=== PATIENT | female | born 1955 | race American Indian/Alaskan Native ===

== ENCOUNTER 2020-12-02 03:03 | Inpatient (IN) | payer MEDICARE, OTHER ==
[2020-12-02] MEDS ORDERED: SODIUM CHLORIDE 0.9% 500 ML 500 ML IV ONE (03:36)
--- NOTE | 2020-12-02 03:37 | Emergency Department Report ---
ED General Adult HPI - General Chief complaint: Dyspnea/Respdistress Stated complaint: ESSENCE PUI?: Yes Time Seen by Provider: 12/02/20 03:20 Source: patient, EMS ( EMS documentation not available at time of chart dictation ), RN notes reviewed, old records reviewed Mode of arrival: Stretcher Limitations: Physical Limitation - History of Present Illness Initial comments: The patient was evaluated in the emergency department for symptoms described in the history of present illness. He/she was evaluated in the context of the aks[place] bal COVID-19 pandemic, which necessitated consideration that the patient might be at risk for infection with the virus that causes COVID-19. Institutional protocols and algorithms that pertain to the evaluation of patients at risk for COVID-19 are in a state of rapid change based on information released by regulatory bodies including the CDC and federal and state organizations. These policies and algorithms were followed during the patient's care in the emergency department. Please note that these policies, procedures and recommendations changed on a rapid basis. During the entire history and physical I had a complete personal protective equipment. The patient is a 65-year-old female. The patient is brought to the hospital by emergency medical services. The patient is a [facility] patient. She apparently has a history of hypertension, and lower GI bleed in 2016. She is referred to t his emergency room by a local [facility] stand-alone facility. At this facility, she presented with Covid symptoms, today is her sixth day of symptomatology. Symptoms include shortness of breath, loss of taste and smell, malaise, fatigue and weakness. Denies nausea vomiting, diarrhea, hematemesis and bright red blood per rectum. She had a CT scan of her chest which showed extensive irregular groundglass opacity of the bilateral lungs with more focal areas of irregular consolidation. Currently reported imaging features of COVID-19 pneumonia are present. She also had a CT scan of her abdomen pelvis which showed diverticulosis, without inflammatory findings. She also had a number of nonemergent incidental findings. She was given 6 mg of Decadron via Covid hypoxic protocol. Lovenox was held, as it was concerned that the patient may have a history of occult GI bleed. In addition, her stools found to be heme positive, the patient does report that she had a rectal exam performed. The patient endorses mild headache, chest tightness, shortness of breath, cramping, diarrhea, body aches, loss of taste and smell. She has not received a COVID-19 vaccination. She states that she had a colonoscopy 2 years ago which she believes was unremarkable. The patient also received albuterol, pantoprazole, potassium chloride. Laboratory studies were also obtained Which demonstrated a hemoglobin of 8.3, a hematocrit of 26.7, a glucose of 347, white blood cell count of 5.4. , -: Gradual, days(s) Location: head, back, left, right, upper extremity, lower extremity Severity scale (0 -10): 0 Quality: aching Consistency: constant Improves with: rest Worsens with: movement - Related Data Allergies Allergy/AdvReac Type Severity Reaction Status Date / Time shellfish derived Allergy Unknown Verified 12/02/20 03:37 ED Review of Systems ROS: Stated complaint: ESSENCE Other details as noted in HPI Constitutional: fever, malaise, weakness Eyes: denies: eye discharge ENT: congestion Respiratory: shortness of breath Cardiovascular: denies: chest pain Gastrointestinal: diarrhea. denies: nausea Genitourinary: denies: dysuria Musculoskeletal: back pain, arthralgia, myalgia Neurological: headache, weakness Hematological/Lymphatic: denies: easy bleeding ED Past Medical Hx - Past Medical History Previous Medical History?: Yes Hx Hypertension: Yes Hx Diabetes: Yes - Surgical History Past Surgical History?: Yes Additional Surgical History: R wrist ED Physical Exam - General Limitations: Physical Limitation General appearance: alert, anxious, in distress, obese - Head Head exam: Present: atraumatic, normocephalic - Eye Eye exam: Present: normal appearance, EOMI. Absent: nystagmus - ENT ENT exam: Present: normal exam, normal orophraynx, mucous membranes moist, normal external ear exam - Neck Neck exam: Present: normal inspection, full ROM. Absent: tenderness, meningismus - Respiratory Respiratory exam: Present: respiratory distress, accessory muscle use, other (Pulmonary auscultation not performed secondary to lack of disposable stethoscope). Absent: stridor - Cardiovascular Cardiovascular Exam: Present: other (Cardiac auscultation not performed secondary to lack of disposable stethoscope) - GI/Abdominal GI/Abdominal exam: Present: soft. Absent: distended, tenderness, guarding, rebound, rigid, pulsatile mass - Extremities Exam Extremities exam: Present: normal inspection, full ROM, other (2+ pulses noted in the bilateral upper and lower extremities. There is no palpable cord. negative Homans sign. Muscular compartments are soft. The pelvis is stable.). Absent: pedal edema, calf tenderness - Back Exam Back exam: Present: normal inspection, full ROM. Absent: tenderness, CVA tenderness (R), CVA tenderness (L), paraspinal tenderness, vertebral tenderness - Neurological Exam Neurological exam: Present: alert, oriented X3, other (No facial droop. Tongue midline. Extraocular movements intact bilaterally. Facial sensation intact to light touch in V1, V2, V3 distribution bilaterally. 5 and a 5 strength in 4 extremities. Sensation intact to light touch in 4 extremities.) - Psychiatric Psychiatric exam: Present: anxious - Skin Skin exam: Present: warm, dry, intact, normal color. Absent: rash ED Course Vital Signs 12/02/20 12/02/20 03:36 03:55 Temperature 98.3 F Pulse Rate 73 Respiratory 25 H Rate Blood Pressure 122/65 [Left] O2 Sat by Pulse 92 98 Oximetry - Reevaluation(s) Reevaluation #1: 12/02/20 04:10 Differential diagnosis, including but not limited to: COVID-19, acute hypoxic r espiratory failure, viral pneumonia versus bacterial pneumonia Assessment and plan: 65-year-old female who presents during the COVID-19 pandemic, with typical and prototypical COVID-19 symptomatology. She had a CT scan of her chest abdomen pelvis acquired prior to her arriving at this hospital. She meets criteria for admission hospitalization secondary to acute hypoxic respiratory failure. She denies GI bleed that she is aware of at this time, and she had a rectal exam performed today which was guaiac positive. She also reports having had a colonoscopy 2 years ago which was negative for s ignificant findings. On a nonrebreather, saturating 95 to 99%. She is awake, alert, oriented not encephalopathic. Contacted [facility] physician Dr. Penn, discussed the patient's history, physical, laboratory studies and imaging findings, overall clinical impression, he authorizes this patient to be admitted to this hospital. I have discussed this plan of care with the patient, and she is agreeable to admission. She was given steroids prior to arrival. Given COVID-19 symptomatology, objective imaging, overall prevalence of COVID- 19, continue on nonrebreather, administer supportive care, I think bacterial pneumonia is unlikely, but will cover just in case of superinfection, and admit patient to the medical service. 12/02/20 04:59 admitted to [facility] under Dr Lia Moy and ELMO Parsons ED Medical Decision Making - Lab Data Result diagrams: 12/02/20 03:58 12/02/20 03:58 Vital Signs 12/02/20 12/02/20 03:36 03:55 Temperature 98.3 F Pulse Rate 73 Respiratory 25 H Rate Blood Pressure 122/65 [Left] O2 Sat by Pulse 92 98 Oximetry - EKG Data -: EKG Interpreted by Ks EKG shows normal: sinus rhythm Rate: normal - EKG Data 12/02/20 04:13 EKG is interpreted at 03: 51 Sinus rhythm, 77 bpm. Normal axis, normal intervals, left ventricular hypertrophy, motion artifact, abnormal EKG, not a STEMI. - Radiology Data Radiology results: pending, report reviewed, image reviewed [facility] [address] [place] [address] XRay Report Signed Patient: KENNETH REIS MR#: [id number] : 1955 Acct:[id number] Age/Sex: 65 / F ADM Date: 12/02/20 Loc: ED Attending Dr: Ordering Physician: SHERLYN KINGSLEY MD Date of Service: 12/02/20 Procedure(s): XR chest 1V ap Accession Number(s): [id number] cc: SHERLYN KINGSLEY MD Fluoro Time In Minutes: CHEST 1 VIEW 12/02/2020 3:02 AM INDICATION / CLINICAL INFORMATION: Dyspnea. COMPARISON: None available. FINDINGS: SUPPORT DEVICES: None. HEART / MEDIASTINUM: No significant abnormality. LUNGS / PLEURA: Moderate multifocal bilateral parenchymal disease characteristic for pneumonia No pneumothorax. ADDITIONAL FINDINGS: No significant additional findings. IMPRESSION: 1. Probable bilateral Covid pneumonia Signer Name: Evangelist Herron MD Signed: 12/02/2020 4:25 AM Workstation Name: [id number] Transcribed By: TL Dictated By: Evangelist Herron MD Electronically Authenticated By: Evangelist Herron MD Signed Date/Time: 12/02/20 5820 Critical Care Time: Yes Critical care time in (mins) excluding proc time.: 35 Critical care attestation.: If time is entered above; I have spent that time in minutes in the direct care of this critically ill patient, excluding procedure time. ED Disposition Clinical Impression: COVID-19, Acute respiratory failure with hypoxia, Anosmia, Hyperglycemia Disposition: ADMITTED INPATIENT Is pt being admited?: Yes Does the pt Need Aspirin: No Condition: Serious
[2020-12-02] MEDS ORDERED: cefTRIAXone/NS 1 GM/50 ML 1 GM/50 ML BAG IV ONE (04:12)
[2020-12-02] MEDS ORDERED: AZITHROMYCIN/NS 500 MG/250 ML 500 MG/250 ML BAG IV ONE (04:12)
[2020-12-02 04:18] LABS: Basophils % (Auto) 0.2 % (0.0-1.8); Hematocrit 27.2 % (30.3-42.9); Hemoglobin 8.9 gm/dl (10.1-14.3); Lymphocytes # (Auto) 0.3 K/mm3 (1.2-5.4); Lymphocytes % (Auto) 6.7 % (13.4-35.0); Mean Corpuscular HGB Conc 33 % (30-34); Mean Corpuscular Volume 76 fl (79-97); Monocytes # (Auto) 0.3 K/mm3 (0.0-0.8); Monocytes % (Auto) 5.4 % (0.0-7.3); Platelet Count 231 K/mm3 (140-440); Red Blood Count 3.57 M/mm3 (3.65-5.03); Red Cell Distribution Width 17.6 % (13.2-15.2)
[2020-12-02 04:26] LABS: INR 0.88 (0.87-1.13)
[2020-12-02 04:27] LABS: Partial Thromboplastin Time 32.1 Sec. (24.2-36.6)
--- NOTE | 2020-12-02 04:36 | XRay Report ---
CHEST 1 VIEW 12/02/2020 3:02 AM INDICATION / CLINICAL INFORMATION: Dyspnea. COMPARISON: None available. FINDINGS: SUPPORT DEVICES: None. HEART / MEDIASTINUM: No significant abnormality. LUNGS / PLEURA: Moderate multifocal bilateral parenchymal disease characteristic for pneumonia No pne umothorax. ADDITIONAL FINDINGS: No significant additional findings. IMPRESSION: 1. Probable bilateral Covid pneumonia Signer Name: Evangelist Herron MD Signed: 12/02/2020 4:25 AM Workstation Name: [id number]
[2020-12-02 04:40] LABS: Alanine Aminotransferase 13 units/L (7-56); Albumin 3.1 g/dL (3.9-5); BUN/Creatinine Ratio 25; Blood Urea Nitrogen 20 mg/dL (7-17); Hemolysis Index 0
[2020-12-02] MEDS ORDERED: INSULIN REGULAR, HUMAN 100 UNITS/1 ML IV ONE (04:57)
[2020-12-02] MEDS ORDERED: NALOXONE 0.4 MG/1 ML INJ IV PRN (05:09)
[2020-12-02] MEDS ORDERED: ALBUTEROL 2.5 MG/3 ML NEBU IH PRN (05:09)
[2020-12-02] MEDS ORDERED: DEXTROSE 50% IN WATER (25GM) 50 ML SYRINGE IV PRN (05:09)
[2020-12-02] MEDS ORDERED: oxyCODONE /ACETAMINOPHEN 5-325MG TAB PO PRN (05:09)
[2020-12-02] MEDS ORDERED: ONDANSETRON 4 MG/2 ML INJ IV PRN (05:09)
--- NOTE | 2020-12-02 05:40 | History and Physical Report ---
History of Present Illness Date of examination: 12/02/20 Date of admission: 12/02/2020 Chief complaint: SOB, loss of taste and smell, malaise, fatigue and weakness History of present illness: 65-year-old -[place]ian female with history of hypertension, diabetes, and GI bleed who presents [facility] ED with complaints of shortness of breath, loss of taste and smell, malaise, fatigue and weakness. Of note this is a [facility] patient and [facility] has agreed to the admission. Patient presented to her local [facility] clinic yesterday evening with complaints of Covid symptoms x6 days. CT angio chest done at [facility] revealed extensive irregular bilateral groundglass opacities, and patient was referred to ED for further evaluation and treatment. Admits to known exposure, states that her friend whom she was in close contact with for several days recently tested positive for Covid. Endorses mild generalized headache, chest tightening, diarrhea, body aches, loss of smell and taste, and shortness of breath. Denies fever, chills, abdominal pain, rash, hemoptysis, hematochezia, melena, history of restrictive/obstructive lung disease, or medication noncompliant Past History Past Medical History: diabetes, hypertension, other (GIB (2016)) Past Surgical History: Other (right wrist sx) Social history: single, full code, other (has a roommate). denies: smoking, alcohol abuse, prescription drug abuse, IV drug use Family history: diabetes, hypertension Medications and Allergies Allergies Allergy/AdvReac Type Severity Reaction Status Date / Time shellfish derived Allergy Unknown Verified 12/02/20 03:37 Active Meds: Active Medications Acetaminophen (Acetaminophen 325 Mg Tab) 650 mg PO Q4H PRN PRN Reason: Pain MILD(1-3)/Fever >100.5/LARA Albuterol (Albuterol 2.5 Mg/3 Ml Nebu) 2.5 mg IH Q3HRT PRN PRN Reason: Shortness Of Breath Dexamethasone (Dexamethasone 4 Mg Tab) 6 mg PO DAILY AZAEL Dextrose (Dextrose 50% In Water (25gm) 50 Ml Syringe) 50 ml IV Q30MIN PRN; Protocol PRN Reason: Hypoglycemia Docusate Sodium (Docusate Sodium 100 Mg Cap) 100 mg PO BID AZAEL Enoxaparin Sodium (Enoxaparin 40 Mg/0.4 Ml Inj) 40 mg SUB-Q QDAY AZAEL Azithromycin (Zithromax/Ns) 500 mg in 250 mls @ 250 mls/hr IV Q24H AZAEL Ceftriaxone Sodium (Rocephin/Ns 1 Gm/50 Ml) 1 gm in 50 mls @ 100 mls/hr IV Q24H AZAEL; Protocol Insulin Glargine (Insulin Glargine 100 Units/Ml) 10 units SUB-Q QAMDIAB AZAEL Insulin Human Lispro (Insulin Lispro 100 Unit/Ml) 0 unit SUB-Q ACHS AZAEL; Protocol Naloxone HCl (Naloxone 0.4 Mg/1 Ml Inj) 0.1 mg IV Q2MIN PRN PRN Reason: Res Rate </= 8 or 02 SAT < 92% Ondansetron HCl (Ondansetron 4 Mg/2 Ml Inj) 4 mg IV Q6H PRN PRN Reason: Nausea And Vomiting Oxycodone/Acetaminophen (Oxycodone /Acetaminophen 5-325mg Tab) 1 tab PO Q6H PRN PRN Reason: Pain, Moderate (4-6) Pantoprazole Sodium (Pantoprazole 40 Mg Inj) 40 mg IV BID AZAEL Sodium Chloride (Sodium Chloride 0.9% 10 Ml Flush Syringe) 10 ml IV BID AZAEL Sodium Chloride (Sodium Chloride 0.9% 10 Ml Flush Syringe) 10 ml IV PRN PRN PRN Reason: LINE FLUSH Review of Systems All systems: negative (As noted in HPI) Exam - Physical Exam Narrative exam: Physical exam General appearance: Present: No acute distress, alert and oriented 3, older adult female - EENT Eyes: Present: PERRL, EOM intact ENT: hearing intact, normal dentition - Neck Neck: Present: supple, normal ROM - Respiratory Respiratory effort: Non-labored Respiratory: Diminished bases, on supplemental oxygen - Cardiovascular Heart rate: 73 (bpm) Rhythm: Sinus Heart Sounds: Present: S1 & S2. Absent: rub, click - Extremities Extremities: no ischemia, pulses intact, - Peripheral Assessment Peripheral Pulses: within normal limits - Abdominal General gastrointestinal: soft, non-tender, normal bowel sounds - Integumentary Integumentary: Present: warm, dry - Musculoskeletal Musculoskeletal: Able to move all extremities -Neurological Neurological: CN II-XII intact - Psychiatric Psychiatric: cooperative - Constitutional Vitals: Temp Pulse Resp BP Pulse Ox 98.3 F 73 25 H 122/65 98 12/02/20 03:36 12/02/20 03:36 12/02/20 03:36 12/02/20 03:36 12/02/20 03:55 HEART Score - HEART Score Troponin: Troponin T < 0.010 ng/mL (0.00-0.029) 12/02/20 03:58 Results - Labs CBC & Chem 7: 12/02/20 03:58 12/02/20 03:58 Labs: Laboratory Last Values WBC 5.0 K/mm3 (4.5-11.0) 12/02/20 03:58 RBC 3.57 M/mm3 (3.65-5.03) L 12/02/20 03:58 Hgb 8.9 gm/dl (10.1-14.3) L 12/02/20 03:58 Hct 27.2 % (30.3-42.9) L 12/02/20 03:58 MCV 76 fl (79-97) L 12/02/20 03:58 MCH 25 pg (28-32) L 12/02/20 03:58 MCHC 33 % (30-34) 12/02/20 03:58 RDW 17.6 % (13.2-15.2) H 12/02/20 03:58 Plt Count 231 K/mm3 (140-440) 12/02/20 03:58 Lymph % (Auto) 6.7 % (13.4-35.0) L 12/02/20 03:58 [place] % (Auto) 5.4 % (0.0-7.3) 12/02/20 03:58 Eos % (Auto) 0.0 % (0.0-4.3) 12/02/20 03:58 Baso % (Auto) 0.2 % (0.0-1.8) 12/02/20 03:58 Lymph # (Auto) 0.3 K/mm3 (1.2-5.4) L 12/02/20 03:58 [place] # (Auto) 0.3 K/mm3 (0.0-0.8) 12/02/20 03:58 Eos # (Auto) 0.0 K/mm3 (0.0-0.4) 12/02/20 03:58 Baso # (Auto) 0.0 K/mm3 (0.0-0.1) 12/02/20 03:58 Seg Neutrophils % 87.7 % (40.0-70.0) H 12/02/20 03:58 Seg Neutrophils # 4.4 K/mm3 (1.8-7.7) 12/02/20 03:58 PT 12.5 Sec. (12.2-14.9) 12/02/20 03:58 INR 0.88 (0.87-1.13) 12/02/20 03:58 APTT 32.1 Sec. (24.2-36.6) 12/02/20 03:58 D-Dimer 1559.33 ng/mlDDU (0-234) H 12/02/20 03:58 Sodium 130 mmol/L (137-145) L 12/02/20 03:58 Potassium 4.8 mmol/L (3.6-5.0) 12/02/20 03:58 Chloride 90.0 mmol/L (98-107) L 12/02/20 03:58 Carbon Dioxide 27 mmol/L (22-30) 12/02/20 03:58 Anion Gap 18 mmol/L 12/02/20 03:58 BUN 20 mg/dL (7-17) H 12/02/20 03:58 Creatinine 0.8 mg/dL (0.6-1.2) 12/02/20 03:58 Estimated GFR > 60 ml/min 12/02/20 03:58 BUN/Creatinine Ratio 25 % 12/02/20 03:58 Glucose 346 mg/dL (65-100) H 12/02/20 03:58 Calcium 9.0 mg/dL (8.4-10.2) 12/02/20 03:58 Magnesium 2.40 mg/dL (1.7-2.3) H 12/02/20 03:58 Ferritin 497.6 ng/mL (10.0-200.0) H 12/02/20 03:58 Total Bilirubin 0.30 mg/dL (0.1-1.2) 12/02/20 03:58 AST 43 units/L (5-40) H 12/02/20 03:58 ALT 13 units/L (7-56) 12/02/20 03:58 Alkaline Phosphatase 53 units/L (35-129) 12/02/20 03:58 Lactate Dehydrogenase 582 units/L (91-180) H 12/02/20 03:58 Troponin T < 0.010 ng/mL (0.00-0.029) 12/02/20 03:58 C-Reactive Protein 34.20 mg/dL (0.00-1.30) H 12/02/20 03:58 Total Protein 6.4 g/dL (6.3-8.2) 12/02/20 03:58 Albumin 3.1 g/dL (3.9-5) L 12/02/20 03:58 Albumin/Globulin Ratio 0.9 % 12/02/20 03:58 - Imaging and Cardiology Imaging and Cardiology: CXR: COMPARISON: None available. FINDINGS: SUPPORT DEVICES: None. HEART / MEDIASTINUM: No significant abnormality. LUNGS / PLEURA: Moderate multifocal bilateral parenchymal disease characteristic for pneumonia No pneumothorax. ADDITIONAL FINDINGS: No significant additional findings. IMPRESSION: 1. Probable bilateral Covid pneumonia CT Chest at [facility] ([facility]): showed extensive irregular groundglass opacity of the bilateral lungs with more focal areas of irregular consolidation Assessment and Plan Assessment and plan: Suspected COVID-19 viral infection -Admits to known exposure -Presented at outside facility ([facility]) with Covid symptom complaints, CT angio chest bilateral ground glass opacities, consistent with Covid -Covid inflammatory markers elevated -PCR pending -On zinc and vitamin D - started on Decadron -ID consulted Pneumonia -Likely due to COVID-19 -CXR shows bilateral probable Covid pneumonia -Cultures pending -Started on IV ABX -Monitor CBC Acute hypoxic respiratory failure -No Baseline home oxygen requirements -Currently on supplemental -Monitor saturations -Continue supplemental oxygen wean as tolerated -Albuterol Anemia -Guaiac positive stool, remote history of GI bleed (2016) -Trend H&H -Hemoglobin on admission 8.9 -Continue to monitor hemoglobin -Transfuse as needed for hgb<7 DM2 -Uncontrolled, with hyperglycemia -POC BG monitoring -Schedule Lantus and SSI coverage prn -HgbA1C pending GI and DVT PPX -On protonix and lovenox VTE prophylaxis?: Chemical, Mechanical
--- NOTE | 2020-12-02 07:49 | Event Note ---
Date: 12/02/20 Patient tested positive for Covid continue current management. ID input noted. Continue steroid therapy.
[2020-12-02] MEDS ORDERED: INSULIN GLARGINE 100 UNITS/ML SUB-Q SCH (08:00)
[2020-12-02] MEDS: INSULIN LISPRO 100 UNIT/ML SUB-Q SCH ×3 (08:05→17:06)
[2020-12-02] MEDS: INSULIN GLARGINE 100 UNITS/ML SUB-Q SCH ×2 (08:29→17:07)
[2020-12-02] MEDS: PANTOPRAZOLE 40 MG TAB PO SCH ×2 (08:29→17:05)
[2020-12-02] MEDS ORDERED: PANTOPRAZOLE 40 MG INJ IV SCH (10:00)
[2020-12-02] MEDS: DEXAMETHASONE 4 MG TAB PO SCH (11:41)
[2020-12-02] MEDS: CHOLECALCIFEROL (VIT D3) 5,000 UNIT TAB PO SCH (11:41)
[2020-12-02] MEDS: DOCUSATE SODIUM 100 MG CAP PO SCH (11:42)
[2020-12-02] MEDS: ZINC SULFATE 220 MG CAP PO SCH (11:43)
[2020-12-02] MEDS: ENOXAPARIN 40 MG/0.4 ML INJ SUB-Q SCH (11:43)
--- NOTE | 2020-12-02 13:23 | Electrocardiograph Report ---
[facility] Test Date: 2020-12-02 Test Time: 03:51:06 Pat Name: KENNETH REIS Department: Room: [place] [address] Gender: F Application Release Manager: CURT : 1955 Requested By: SHERLYN KINGSLEY Order Number: [id number] Reading MD: Aida Qiu Measurements Intervals [place] Rate: 77 P: 50 MO: 130 QRS: 27 QRSD: 79 T: 26 QT: 384 QTc: 435 Interpretive Statements Sinus rhythm No previous ECG available for comparison Electronically Signed On 12-02-2020 13:22:53 EDT by Aida Qiu
[2020-12-02 14:18] LABS: Hematocrit 30.4 % (30.3-42.9); Hemoglobin 9.7 gm/dl (10.1-14.3)
[2020-12-02] MEDS ORDERED: TOCILIZUMAB 400 MG in SODIUM CHLORIDE 0.9% 100 ML IV ONE (14:37)
--- NOTE | 2020-12-02 14:39 | Consultation ---
History of Present Illness - Reason for Consult Consult date: 12/02/20 COVID-19 Requesting physician: KAITLYNN MEJIA - History of Present Illness The patient is a 65-year-old female with hypertension, diabetes, GI bleed was admitted with worsening shortness of breath, fatigue and malaise. She was symptomatic for the last 6 days, went to [facility] and underwent a CT a chest which showed bilateral groundglass opacities. Upon evaluation in the ER, afebrile, noted to be requiring high flow nasal cannula. Labs revealed normal WBC, D-dimer 1559 CRP 34.2, LDH 582, ferritin 497 Review of Systems: reviewed in the chart, unable to obtain, minimize risk of transmission Past History Past Medical History: diabetes, hypertension, other (GIB (2016)) Past Surgical History: Other (right wrist sx) Social history: single, full code, other (has a roommate). denies: smoking, alcohol abuse, prescription drug abuse, IV drug use Family history: diabetes, hypertension Medications and Allergies Allergies Allergy/AdvReac Type Severity Reaction Status Date / Time shellfish derived Allergy Unknown Verified 12/02/20 03:37 Active Meds: Active Medications Acetaminophen (Acetaminophen 325 Mg Tab) 650 mg PO Q4H PRN PRN Reason: Pain MILD(1-3)/Fever >100.5/LARA Albuterol (Albuterol 2.5 Mg/3 Ml Nebu) 2.5 mg IH Q3HRT PRN PRN Reason: Shortness Of Breath Cholecalciferol (Cholecalciferol (Vit D3) 5,000 Unit Tab) 5,000 unit PO DAILY [facility] Last Admin: 12/02/20 11:41 Dose: 5,000 unit Documented by: Dexamethasone (Dexamethasone 4 Mg Tab) 6 mg PO DAILY [facility] Stop: 12/11/20 10:01 Last Admin: 12/02/20 11:41 Dose: 6 mg Documented by: Dextrose (Dextrose 50% In Water (25gm) 50 Ml Syringe) 50 ml IV Q30MIN PRN; Protocol PRN Reason: Hypoglycemia Docusate Sodium (Docusate Sodium 100 Mg Cap) 100 mg PO BID [facility] Last Admin: 12/02/20 11:42 Dose: 100 mg Documented by: Enoxaparin Sodium (Enoxaparin 40 Mg/0.4 Ml Inj) 40 mg SUB-Q QDAY [facility] Last Admin: 12/02/20 11:43 Dose: 40 mg Documented by: Azithromycin (Zithromax/Ns) 500 mg in 250 mls @ 250 mls/hr IV Q24H [facility] Stop: 12/06/20 08:59 Ceftriaxone Sodium (Rocephin/Ns 1 Gm/50 Ml) 1 gm in 50 mls @ 100 mls/hr IV Q24H [facility]; Protocol Stop: 12/06/20 08:29 TOCILIZUMAB 400 mg/ Sodium (Chloride) 120 mls @ 120 mls/hr IV ONCE ONE Stop: 12/02/20 15:36 REMDESIVIR 200 mg/ Sodium (Chloride) 250 mls @ 500 mls/hr IV ONCE ONE Stop: 12/02/20 15:06 REMDESIVIR 100 mg/ Sodium (Chloride) 250 mls @ 500 mls/hr IV Q24HR@2100 [facility] Stop: 12/06/20 21:29 Insulin Glargine (Insulin Glargine 100 Units/Ml) 20 units SUB-Q BIDDIAB [facility] Last Admin: 12/02/20 08:29 Dose: 20 units Documented by: Insulin Human Lispro (Insulin Lispro 100 Unit/Ml) 0 unit SUB-Q ACHS [facility]; Protocol Last Admin: 12/02/20 11:57 Dose: 8 unit Documented by: Naloxone HCl (Naloxone 0.4 Mg/1 Ml Inj) 0.1 mg IV Q2MIN PRN PRN Reason: Res Rate </= 8 or 02 SAT < 92% Ondansetron HCl (Ondansetron 4 Mg/2 Ml Inj) 4 mg IV Q6H PRN PRN Reason: Nausea And Vomiting Oxycodone/Acetaminophen (Oxycodone /Acetaminophen 5-325mg Tab) 1 tab PO Q6H PRN PRN Reason: Pain, Moderate (4-6) Pantoprazole Sodium (Pantoprazole 40 Mg Tab) 40 mg PO BIDAC [facility] Last Admin: 12/02/20 08:29 Dose: 40 mg Documented by: Sodium Chloride (Sodium Chloride 0.9% 10 Ml Flush Syringe) 10 ml IV BID [facility] Last Admin: 12/02/20 11:42 Dose: 10 ml Documented by: Sodium Chloride (Sodium Chloride 0.9% 10 Ml Flush Syringe) 10 ml IV PRN PRN PRN Reason: LINE FLUSH Sodium Chloride (Sodium Chloride 0.9% 50 Ml Ivpb) 50 ml IV Q24HR@2100 [facility] Stop: 12/06/20 21:01 Zinc Sulfate (Zinc Sulfate 220 Mg Cap) 220 mg PO QDAY [facility] Last Admin: 12/02/20 11:43 Dose: 220 mg Documented by: Physical Examination - Physical Exam Narrative exam: Physical Exam (reviewed in chart to minimize risk of transmission) Constitutional: deferred Head, Ears, Nose: deferred Eyes: deferred Neck: deferred Oral: deferred Cardiovascular: deferred Respiratory: deferred GI: deferred Musculoskeletal: deferred Skin: deferred Hem/Lymphatic: deferred Psych: deferred Neurological: deferred - Constitutional Vitals: Vital Signs Temp Pulse Resp BP Pulse Ox 98.3 F 87 22 113/61 90 12/02/20 03:36 12/02/20 12:00 12/02/20 12:00 12/02/20 12:00 12/02/20 12:00 Temperature -Last 24 Hours Temperature 98.3 F Results - Labs CBC & Chem 7: 12/02/20 03:58 12/02/20 03:58 Labs: Abnormal lab results 12/02/20 12/02/20 12/02/20 Range/Units 03:58 03:58 03:58 RBC 3.57 L (3.65-5.03) M/mm3 Hgb 8.9 L (10.1-14.3) gm/dl Hct 27.2 L (30.3-42.9) % MCV 76 L (79-97) fl MCH 25 L (28-32) pg RDW 17.6 H (13.2-15.2) % Lymph % (Auto) 6.7 L (13.4-35.0) % Lymph # (Auto) 0.3 L (1.2-5.4) K/mm3 Seg Neutrophils % 87.7 H (40.0-70.0) % D-Dimer 1559.33 H (0-234) ng/mlDDU Sodium 130 L (137-145) mmol/L Chloride 90.0 L (98-107) mmol/L BUN 20 H (7-17) mg/dL Glucose 346 H (65-100) mg/dL POC Glucose (70-105) mg/dL Hemoglobin A1c (4-6) % Magnesium 2.40 H (1.7-2.3) mg/dL Ferritin (10.0-200.0) ng/mL AST 43 H (5-40) units/L Lactate Dehydrogenase 582 H (91-180) units/L C-Reactive Protein 34.20 H (0.00-1.30) mg/dL Albumin 3.1 L (3.9-5) g/dL Coronavirus (PCR) (Negative) 12/02/20 12/02/20 12/02/20 Range/Units 03:58 06:15 07:37 RBC (3.65-5.03) M/mm3 Hgb (10.1-14.3) gm/dl Hct (30.3-42.9) % MCV (79-97) fl MCH (28-32) pg RDW (13.2-15.2) % Lymph % (Auto) (13.4-35.0) % Lymph # (Auto) (1.2-5.4) K/mm3 Seg Neutrophils % (40.0-70.0) % D-Dimer (0-234) ng/mlDDU Sodium (137-145) mmol/L Chloride (98-107) mmol/L BUN (7-17) mg/dL Glucose (65-100) mg/dL POC Glucose 339 H (70-105) mg/dL Hemoglobin A1c 9.5 H (4-6) % Magnesium (1.7-2.3) mg/dL Ferritin 497.6 H (10.0-200.0) ng/mL AST (5-40) units/L Lactate Dehydrogenase (91-180) units/L C-Reactive Protein (0.00-1.30) mg/dL Albumin (3.9-5) g/dL Coronavirus (PCR) (Negative) 12/02/20 12/02/20 Range/Units 08:15 11:52 RBC (3.65-5.03) M/mm3 Hgb (10.1-14.3) gm/dl Hct (30.3-42.9) % MCV (79-97) fl MCH (28-32) pg RDW (13.2-15.2) % Lymph % (Auto) (13.4-35.0) % Lymph # (Auto) (1.2-5.4) K/mm3 Seg Neutrophils % (40.0-70.0) % D-Dimer (0-234) ng/mlDDU Sodium (137-145) mmol/L Chloride (98-107) mmol/L BUN (7-17) mg/dL Glucose (65-100) mg/dL POC Glucose 305 H (70-105) mg/dL Hemoglobin A1c (4-6) % Magnesium (1.7-2.3) mg/dL Ferritin (10.0-200.0) ng/mL AST (5-40) units/L Lactate Dehydrogenase (91-180) units/L C-Reactive Protein (0.00-1.30) mg/dL Albumin (3.9-5) g/dL Coronavirus (PCR) Positive A (Negative) - Imaging and Cardiology Chest x-ray: report reviewed, image reviewed (b/l patchy airspace disease) Assessment and Plan Cultures: SARS CoV2 PCR: Positive A/P: 65-year-old female with diabetes, hypertension admitted with: #Bilateral pneumonia: Secondary to COVID-19. Severe disease. #Acute hypoxic respiratory failure: Secondary to above. On high flow nasal cannula #Diabetes mellitus, uncontrolled: HbA1c 9.5 Recs: IV/PO Dexamethasone 6 mg daily x 10 days IV remdesivir ordered Actemra ordered f/u procalcitonin, continue empiric antibiotics for now prophylactic anticoagulation based on d-dimer per hospital protocol trend ferritin, LDH, d-dimer, CRP every 2-3 days for risk stratification and to assess disease progression Carl Goldstein MD, FACP [facility] ([facility] O: [phone] F: [phone]
[2020-12-02] MEDS ORDERED: REMDESIVIR 200 MG in SODIUM CHLORIDE 0.9% 250ML 250 ML IV ONE (15:30)
[2020-12-03] MEDS: DOCUSATE SODIUM 100 MG CAP PO SCH ×3 (00:14→23:11)
[2020-12-03] MEDS: INSULIN LISPRO 100 UNIT/ML SUB-Q SCH ×5 (00:15→23:10)
[2020-12-03 00:27] LABS: Alanine Aminotransferase 13 units/L (7-56); Albumin 2.8 g/dL (3.9-5); BUN/Creatinine Ratio 28; Blood Urea Nitrogen 22 mg/dL (7-17); Calcium 8.6 mg/dL (8.4-10.2); Hemolysis Index 0
[2020-12-03] MEDS: SODIUM CHLORIDE 0.9% 50 ML IVPB IV SCH ×2 (02:26→23:11)
[2020-12-03 04:28] LABS: Alanine Aminotransferase 13 units/L (7-56); Albumin 2.8 g/dL (3.9-5); BUN/Creatinine Ratio 28; Blood Urea Nitrogen 22 mg/dL (7-17); Calcium 8.2 mg/dL (8.4-10.2); Hemolysis Index 3
[2020-12-03 04:47] LABS: Hematocrit 26.5 % (30.3-42.9); Hemoglobin 8.6 gm/dl (10.1-14.3); Mean Corpuscular HGB Conc 33 % (30-34); Mean Corpuscular Volume 77 fl (79-97); Platelet Count 261 K/mm3 (140-440); Red Blood Count 3.46 M/mm3 (3.65-5.03); Red Cell Distribution Width 18.2 % (13.2-15.2)
[2020-12-03 06:13] LABS: Band Neutrophils # (Manual) 0.1 K/mm3; Total Cells Counted 100
[2020-12-03 06:14] LABS: Anisocytosis 1+; Hypochromasia 1+; Platelet Estimate Consistent w Auto
--- NOTE | 2020-12-03 09:21 | Progress Note ---
Assessment and Plan Assessment and plan: 65-year-old -Surinamese female with history of hypertension, diabetes, and GI bleed who presents [facility] ED with complaints of shortness of breath, loss of taste and smell, malaise, fatigue and weakness. Of note this is a [facility] patient and [facility] has agreed to the admission. Patient presented to her local [facility] clinic yesterday evening with complaints of Covid symptoms x6 days. CT angio chest done at [facility] revealed extensive irregular bilateral groundglass opacities, and patient was referred to ED for further evaluation and treatment. Admits to known exposure, states that her friend whom she was in close contact with for several days recently tested positive for Covid. Endorses mild generalized headache, chest tightening, diarrhea, body aches, loss of smell and taste, and shortness of breath. Denies fever, chills, abdominal pain, rash, hemoptysis, hematochezia, melena, history of restrictive/obstructive lung disease, or medication noncompliant COVID-19 test is positive patient is high flow in progress 40liters/100%, will obtain pulmonary consultation. Will adjust glargine for better insulin coverage. Continue remdesivir and Solu-Medrol. Will monitor progression. Encourage prone positioning. We will give a dose of Lasix today. Would like to go to full dose anticoagulation but patient's anemia is precluding And also patient with noted positive stool and remote history of GI bleed in 2016 if no worsening renal function with the Lasix given today will consider CTA in the morning if patient is not improving COVID-19 pneumonia -Admits to known exposure -Presented at outside facility ([facility]) with Covid symptom complaints, CT angio chest bilateral ground glass opacities, consistent with Covid -Covid inflammatory markers elevated -PCR pending -On zinc and vitamin D - started on Decadron -ID consulted Pneumonia -Likely due to COVID-19 -CXR shows bilateral probable Covid pneumonia -Cultures pending -Started on IV ABX -Monitor CBC Acute hypoxic respiratory failure -No Baseline home oxygen requirements -Currently on supplemental -Monitor saturations -Continue supplemental oxygen wean as tolerated -Albuterol Anemia -Guaiac positive stool, remote history of GI bleed (2016) -Trend H&H -Hemoglobin on admission 8.9 -Continue to monitor hemoglobin -Transfuse as needed for hgb<7 DM2 -Uncontrolled, with hyperglycemia -POC BG monitoring -Schedule Lantus and SSI coverage prn -HgbA1C pending Hyponatremia GI and DVT PPX -On protonix and lovenox VTE prophylaxis?: Chemical, Mechanical The high probability of a clinically significant, sudden or life threatening deterioration of the [pulmonary] system(s) required my full and direct attention, intervention and personal management. The aggregate critical care time was [35] minutes. This time is in addition to time spent performing reported procedures but includes the following: [x] Data Review and interpretation [x] Patient assessment and monitoring of vital signs [x] Documentation [x] Medication orders and management History Interval history: Patient seen and examined remains hypoxic severe shortness of breath. On high flow Hospitalist Physical - Physical exam Narrative exam: VITAL SIGNS: Reviewed. GENERAL: The patient appears normally developed, in moderate distress speaks in single sentences. On high flow vital signs as documented. HEAD: No signs of head trauma. EYES: Pupils are equal. Extraocular motions intact. EARS: Hearing grossly intact. MOUTH: Oropharynx is normal. NECK: No adenopathy, no JVD. CHEST: Chest with diminished breath sounds bilaterally. No wheezes, rales, or rhonchi. CARDIAC: Regular rate and rhythm. S1 and S2, without murmurs, gallops, or rubs. VASCULAR: No Edema. Peripheral pulses normal and equal in all extremities. ABDOMEN: Soft, non tender and non distended. No rebound or guarding, and no masses palpated. Bowel Sounds normal. MUSCULOSKELETAL: Good range of motion of all major joints. Extremities without clubbing, cyanosis or edema. NEUROLOGIC EXAM: Alert and oriented x 3 No focal sensory or strength deficits. Speech normal short sentences. Follows commands. PSYCHIATRIC: Mood normal. SKIN: detail exam as documented in skin assessment - Constitutional Vitals: Temp Pulse Resp BP Pulse Ox 98.3 F 87 15 116/59 92 12/02/20 03:36 12/02/20 23:30 12/02/20 19:01 12/02/20 19:01 12/02/20 23:30 HEART Score - HEART Score Troponin: Troponin T < 0.010 ng/mL (0.00-0.029) 12/02/20 03:58 Results - Labs CBC & Chem 7: 12/03/20 03:48 12/03/20 03:48 Labs: Laboratory Last Values WBC 7.8 K/mm3 (4.5-11.0) 12/03/20 03:48 RBC 3.46 M/mm3 (3.65-5.03) L 12/03/20 03:48 Hgb 8.6 gm/dl (10.1-14.3) L 12/03/20 03:48 Hct 26.5 % (30.3-42.9) L 12/03/20 03:48 MCV 77 fl (79-97) L 12/03/20 03:48 MCH 25 pg (28-32) L 12/03/20 03:48 MCHC 33 % (30-34) 12/03/20 03:48 RDW 18.2 % (13.2-15.2) H 12/03/20 03:48 Plt Count 261 K/mm3 (140-440) 12/03/20 03:48 Lymph % (Auto) 6.7 % (13.4-35.0) L 12/02/20 03:58 [place] % (Auto) 5.4 % (0.0-7.3) 12/02/20 03:58 Eos % (Auto) 0.0 % (0.0-4.3) 12/02/20 03:58 Baso % (Auto) 0.2 % (0.0-1.8) 12/02/20 03:58 Lymph # (Auto) 0.3 K/mm3 (1.2-5.4) L 12/02/20 03:58 [place] # (Auto) 0.3 K/mm3 (0.0-0.8) 12/02/20 03:58 Eos # (Auto) 0.0 K/mm3 (0.0-0.4) 12/02/20 03:58 Baso # (Auto) 0.0 K/mm3 (0.0-0.1) 12/02/20 03:58 Add Manual Diff Complete 12/03/20 03:48 Total Counted 100 12/03/20 03:48 Seg Neutrophils % Home Care Manager Rn 12/03/20 03:48 Seg Neuts % (Manual) 93.0 % (40.0-70.0) H 12/03/20 03:48 Band Neutrophils % 1.0 % 12/03/20 03:48 Lymphocytes % (Manual) 3.0 % (13.4-35.0) L 12/03/20 03:48 Monocytes % (Manual) 3.0 % (0.0-7.3) 12/03/20 03:48 Nucleated RBC % Not Reportable 12/03/20 03:48 Seg Neutrophils # 4.4 K/mm3 (1.8-7.7) 12/02/20 03:58 Seg Neutrophils # Man 7.3 K/mm3 (1.8-7.7) 12/03/20 03:48 Band Neutrophils # 0.1 K/mm3 12/03/20 03:48 Lymphocytes # (Manual) 0.2 K/mm3 (1.2-5.4) L 12/03/20 03:48 Abs React Lymphs (Man) 0.0 K/mm3 12/03/20 03:48 Monocytes # (Manual) 0.2 K/mm3 (0.0-0.8) 12/03/20 03:48 Eosinophils # (Manual) 0.0 K/mm3 (0.0-0.4) 12/03/20 03:48 Basophils # (Manual) 0.0 K/mm3 (0.0-0.1) 12/03/20 03:48 Metamyelocytes # 0.0 K/mm3 12/03/20 03:48 Myelocytes # 0.0 K/mm3 12/03/20 03:48 Promyelocytes # 0.0 K/mm3 12/03/20 03:48 Blast Cells # 0.0 K/mm3 12/03/20 03:48 WBC Morphology Not Reportable 12/03/20 03:48 Hypersegmented Neuts Not Reportable 12/03/20 03:48 Hyposegmented Neuts Not Reportable 12/03/20 03:48 Hypogranular Neuts Not Reportable 12/03/20 03:48 Smudge Cells Not Reportable 12/03/20 03:48 Toxic Granulation Not Reportable 12/03/20 03:48 Toxic Vacuolation Not Reportable 12/03/20 03:48 Dohle Bodies Not Reportable 12/03/20 03:48 Pelger-Huet Anomaly Not Reportable 12/03/20 03:48 Minna Rods Not Reportable 12/03/20 03:48 Platelet Estimate Consistent w auto 12/03/20 03:48 Clumped Platelets Not Reportable 12/03/20 03:48 Plt Clumps, EDTA Not Reportable 12/03/20 03:48 Large Platelets Not Reportable 12/03/20 03:48 Giant Platelets Not Reportable 12/03/20 03:48 Platelet Satelliting Not Reportable 12/03/20 03:48 Plt Morphology Comment Not Reportable 12/03/20 03:48 RBC Morphology Not Reportable 12/03/20 03:48 Dimorphic RBCs Not Reportable 12/03/20 03:48 Polychromasia Not Reportable 12/03/20 03:48 Hypochromasia 1+ 12/03/20 03:48 Poikilocytosis Not Reportable 12/03/20 03:48 Anisocytosis 1+ 12/03/20 03:48 Microcytosis Not Reportable 12/03/20 03:48 Macrocytosis Not Reportable 12/03/20 03:48 Spherocytes Not Reportable 12/03/20 03:48 Pappenheimer Bodies Not Reportable 12/03/20 03:48 Sickle Cells Not Reportable 12/03/20 03:48 Target Cells Not Reportable 12/03/20 03:48 Tear Drop Cells Not Reportable 12/03/20 03:48 Ovalocytes Not Reportable 12/03/20 03:48 Helmet Cells Not Reportable 12/03/20 03:48 [place] Bodies Not Reportable 12/03/20 03:48 [place] Rings Not Reportable 12/03/20 03:48 [place] Cells Not Reportable 12/03/20 03:48 Bite Cells Not Reportable 12/03/20 03:48 Crenated Cell Not Reportable 12/03/20 03:48 Elliptocytes Not Reportable 12/03/20 03:48 Acanthocytes (Spur) Not Reportable 12/03/20 03:48 Rouleaux Not Reportable 12/03/20 03:48 Hemoglobin C Crystals Not Reportable 12/03/20 03:48 Schistocytes Not Reportable 12/03/20 03:48 Malaria parasites Not Reportable 12/03/20 03:48 Po Bodies Not Reportable 12/03/20 03:48 Hem Pathologist Commnt No 12/03/20 03:48 PT 12.5 Sec. (12.2-14.9) 12/02/20 03:58 INR 0.88 (0.87-1.13) 12/02/20 03:58 APTT 32.1 Sec. (24.2-36.6) 12/02/20 03:58 D-Dimer 1559.33 ng/mlDDU (0-234) H 12/02/20 03:58 Sodium 131 mmol/L (137-145) L 12/03/20 03:48 Potassium 4.9 mmol/L (3.6-5.0) 12/03/20 03:48 Chloride 92.5 mmol/L (98-107) L 12/03/20 03:48 Carbon Dioxide 26 mmol/L (22-30) 12/03/20 03:48 Anion Gap 17 mmol/L 12/03/20 03:48 BUN 22 mg/dL (7-17) H 12/03/20 03:48 Creatinine 0.8 mg/dL (0.6-1.2) 12/03/20 03:48 Estimated GFR > 60 ml/min 12/03/20 03:48 BUN/Creatinine Ratio 28 % 12/03/20 03:48 Glucose 279 mg/dL (65-100) H 12/03/20 03:48 POC Glucose 258 mg/dL (70-105) H 12/03/20 08:59 Hemoglobin A1c 9.5 % (4-6) H 12/02/20 06:15 Calcium 8.2 mg/dL (8.4-10.2) L 12/03/20 03:48 Magnesium 2.40 mg/dL (1.7-2.3) H 12/02/20 03:58 Ferritin 497.6 ng/mL (10.0-200.0) H 12/02/20 03:58 Total Bilirubin 0.20 mg/dL (0.1-1.2) 12/03/20 03:48 AST 34 units/L (5-40) 12/03/20 03:48 ALT 13 units/L (7-56) 12/03/20 03:48 Alkaline Phosphatase 62 units/L (35-129) 12/03/20 03:48 Lactate Dehydrogenase 582 units/L (91-180) H 12/02/20 03:58 Troponin T < 0.010 ng/mL (0.00-0.029) 12/02/20 03:58 C-Reactive Protein 34.20 mg/dL (0.00-1.30) H 12/02/20 03:58 Total Protein 5.6 g/dL (6.3-8.2) L 12/03/20 03:48 Albumin 2.8 g/dL (3.9-5) L 12/03/20 03:48 Albumin/Globulin Ratio 1.0 % 12/03/20 03:48 Procalcitonin 1.18 ng/mL (<0.15) 12/02/20 03:58 Coronavirus (PCR) Positive (Negative) A 12/02/20 08:15 Microbiology: Microbiology 12/02/20 13:29 Peripheral/Venous Blood Culture - Preliminary Culture in Progress 12/02/20 13:29 Peripheral/Venous Blood Culture - Preliminary Culture in Progress Active Medications - Current Medications Current Medications: Generic Name Dose Route Start Last Admin Trade Name Freq PRN Reason Stop Dose Admin Acetaminophen 650 mg 12/02/20 05:09 Acetaminophen 325 Mg Tab PO Q4H PRN Pain MILD(1-3)/Fever >100.5/LARA Albuterol 2.5 mg 12/02/20 05:09 Albuterol 2.5 Mg/3 Ml Nebu IH Q3HRT PRN Shortness Of Breath Cholecalciferol 5,000 unit 12/02/20 10:00 12/02/20 11:41 Cholecalciferol (Vit D3) 5,000 Unit Tab PO 5,000 unit DAILY AZAEL Administration Dexamethasone 6 mg 12/02/20 10:00 12/02/20 11:41 Dexamethasone 4 Mg Tab PO 12/11/20 10:01 6 mg DAILY AZAEL Administration Dextrose 50 ml 12/02/20 05:09 Dextrose 50% In Water (25gm) 50 Ml Syringe IV Q30MIN PRN Hypoglycemia Protocol Docusate Sodium 100 mg 12/02/20 10:00 12/03/20 00:14 Docusate Sodium 100 Mg Cap PO 100 mg BID AZAEL Administration Enoxaparin Sodium 40 mg 12/02/20 10:00 12/02/20 11:43 Enoxaparin 40 Mg/0.4 Ml Inj SUB-Q 40 mg QDAY AZAEL Administration Azithromycin 500 mg in 250 mls @ 250 mls/hr 12/03/20 08:00 Zithromax/Ns IV 12/06/20 08:59 Q24H AZAEL Ceftriaxone Sodium 1 gm in 50 mls @ 100 mls/hr 12/03/20 08:00 Rocephin/Ns 1 Gm/50 Ml IV 12/06/20 08:29 Q24H [facility] Protocol TOCILIZUMAB 400 mg/ Sodium 120 mls @ 120 mls/hr 12/02/20 14:37 12/02/20 16:05 Chloride IV 12/02/20 15:36 Not Given ONCE ONE REMDESIVIR 100 mg/ Sodium 250 mls @ 500 mls/hr 12/03/20 21:00 Chloride IV 12/06/20 21:29 Q24HR@2100 [facility] Insulin Glargine 20 units 12/02/20 08:00 12/02/20 17:07 Insulin Glargine 100 Units/Ml SUB-Q 20 units BIDDIAB AZAEL Administration Insulin Human Lispro 0 unit 12/02/20 07:30 12/03/20 00:15 Insulin Lispro 100 Unit/Ml SUB-Q 6 unit ACHS AZAEL Administration Protocol Naloxone HCl 0.1 mg 12/02/20 05:09 Naloxone 0.4 Mg/1 Ml Inj IV Q2MIN PRN Res Rate </= 8 or 02 SAT < 92% Ondansetron HCl 4 mg 12/02/20 05:09 Ondansetron 4 Mg/2 Ml Inj IV Q6H PRN Nausea And Vomiting Oxycodone/Acetaminophen 1 tab 12/02/20 05:09 Oxycodone /Acetaminophen 5-325mg Tab PO Q6H PRN Pain, Moderate (4-6) Pantoprazole Sodium 40 mg 12/02/20 08:00 12/02/20 17:05 Pantoprazole 40 Mg Tab PO 40 mg BIDAC AZAEL Administration Sodium Chloride 10 ml 12/02/20 10:00 12/03/20 00:16 Sodium Chloride 0.9% 10 Ml Flush Syringe IV 10 ml BID AZAEL Administration Sodium Chloride 10 ml 12/02/20 05:09 Sodium Chloride 0.9% 10 Ml Flush Syringe IV PRN PRN LINE FLUSH Sodium Chloride 50 ml 12/02/20 21:00 12/03/20 02:26 Sodium Chloride 0.9% 50 Ml Ivpb IV 12/06/20 21:01 Not Given Q24HR@2100 [facility] Zinc Sulfate 220 mg 12/02/20 10:00 12/02/20 11:43 Zinc Sulfate 220 Mg Cap PO 220 mg QDAY AZAEL Administration
[2020-12-03] MEDS: ENOXAPARIN 40 MG/0.4 ML INJ SUB-Q SCH (10:08)
[2020-12-03] MEDS: ZINC SULFATE 220 MG CAP PO SCH (10:08)
[2020-12-03] MEDS: DEXAMETHASONE 4 MG TAB PO SCH (10:08)
[2020-12-03] MEDS: PANTOPRAZOLE 40 MG TAB PO SCH ×2 (10:08→17:55)
[2020-12-03] MEDS: CHOLECALCIFEROL (VIT D3) 5,000 UNIT TAB PO SCH (10:08)
[2020-12-03] MEDS: cefTRIAXone/NS 1 GM/50 ML 1 GM/50 ML BAG IV SCH (10:19)
[2020-12-03] MEDS: AZITHROMYCIN/NS 500 MG/250 ML 500 MG/250 ML BAG IV SCH (10:23)
[2020-12-03] MEDS ORDERED: FUROSEMIDE 40 MG/4 ML INJ IV NR (11:00)
--- NOTE | 2020-12-03 12:20 | Consultation ---
History of Present Illness Consult date: 12/03/20 Requesting physician: PRAKASH LION Reason for consult: other (Acute Hypoxemic Respiratory Failure) History of present illness: PULMONARY/CCM CONSULT NOTE (Full dictation # [id number]) Please see dictated notes for full details Past History Past Medical History: diabetes, hypertension, other (GIB (2016)) Past Surgical History: Other (right wrist sx) Social history: single, full code, other (has a roommate). denies: smoking, alcohol abuse, prescription drug abuse, IV drug use Family history: diabetes, hypertension Medications and Allergies Allergies Allergy/AdvReac Type Severity Reaction Status Date / Time shellfish derived Allergy Unknown Verified 12/02/20 03:37 Home Medications Medication Instructions Recorded Confirmed Last Taken Type Aep-Esf-Yekv 334-134-5 mg Tab 3 mg PO DAILY 12/03/20 12/03/20 12/02/20 History Iron 65 mg PO DAILY 12/03/20 12/03/20 12/02/20 History Lisinopril/Hydrochlorothiazide 20 mg PO DAILY 12/03/20 12/03/20 Unknown History Metformin HCl [metFORMIN] 1,000 mg PO BID 12/03/20 12/03/20 12/02/20 History Simvastatin 40 mg PO DAILY 12/03/20 12/03/20 Unknown History glipiZIDE 10 mg PO DAILY 12/03/20 12/03/20 Unknown History Active Meds: Active Medications Acetaminophen (Acetaminophen 325 Mg Tab) 650 mg PO Q4H PRN PRN Reason: Pain MILD(1-3)/Fever >100.5/LARA Albuterol (Albuterol 2.5 Mg/3 Ml Nebu) 2.5 mg IH Q3HRT PRN PRN Reason: Shortness Of Breath Cholecalciferol (Cholecalciferol (Vit D3) 5,000 Unit Tab) 5,000 unit PO DAILY AZAEL Last Admin: 12/03/20 10:08 Dose: 5,000 unit Documented by: Dexamethasone (Dexamethasone 4 Mg Tab) 6 mg PO DAILY AZAEL Stop: 12/11/20 10:01 Last Admin: 12/03/20 10:08 Dose: 6 mg Documented by: Dextrose (Dextrose 50% In Water (25gm) 50 Ml Syringe) 50 ml IV Q30MIN PRN; Protocol PRN Reason: Hypoglycemia Docusate Sodium (Docusate Sodium 100 Mg Cap) 100 mg PO BID [facility] Last Admin: 12/03/20 10:07 Dose: 100 mg Documented by: Enoxaparin Sodium (Enoxaparin 40 Mg/0.4 Ml Inj) 40 mg SUB-Q QDAY [facility] Last Admin: 12/03/20 10:08 Dose: 40 mg Documented by: Furosemide (Furosemide 40 Mg/4 Ml Inj) 40 mg IV ONCE@1100 NR Stop: 12/03/20 14:00 Azithromycin (Zithromax/Ns) 500 mg in 250 mls @ 250 mls/hr IV Q24H [facility] Stop: 12/06/20 08:59 Last Admin: 12/03/20 10:23 Dose: 250 mls/hr Documented by: Ceftriaxone Sodium (Rocephin/Ns 1 Gm/50 Ml) 1 gm in 50 mls @ 100 mls/hr IV Q24H [facility]; Protocol Stop: 12/06/20 08:29 Last Admin: 12/03/20 10:19 Dose: 100 mls/hr Documented by: TOCILIZUMAB 400 mg/ Sodium (Chloride) 120 mls @ 120 mls/hr IV ONCE ONE Stop: 12/02/20 15:36 Last Admin: 12/02/20 16:05 Dose: Not Given Documented by: REMDESIVIR 100 mg/ Sodium (Chloride) 250 mls @ 500 mls/hr IV Q24HR@2100 AZAEL Stop: 12/06/20 21:29 Insulin Glargine (Insulin Glargine 100 Units/Ml) 30 units SUB-Q BID [facility] Insulin Human Lispro (Insulin Lispro 100 Unit/Ml) 0 unit SUB-Q ACHS [facility]; Protocol Last Admin: 12/03/20 10:15 Dose: 6 unit Documented by: Naloxone HCl (Naloxone 0.4 Mg/1 Ml Inj) 0.1 mg IV Q2MIN PRN PRN Reason: Res Rate </= 8 or 02 SAT < 92% Ondansetron HCl (Ondansetron 4 Mg/2 Ml Inj) 4 mg IV Q6H PRN PRN Reason: Nausea And Vomiting Oxycodone/Acetaminophen (Oxycodone /Acetaminophen 5-325mg Tab) 1 tab PO Q6H PRN PRN Reason: Pain, Moderate (4-6) Pantoprazole Sodium (Pantoprazole 40 Mg Tab) [facility] Last Admin: 12/03/20 10:08 Dose: 40 mg Documented by: Sodium Chloride (Sodium Chloride 0.9% 10 Ml Flush Syringe) 10 ml IV BID [facility] Last Admin: 12/03/20 10:08 Dose: 10 ml Documented by: Sodium Chloride (Sodium Chloride 0.9% 10 Ml Flush Syringe) 10 ml IV PRN PRN PRN Reason: LINE FLUSH Sodium Chloride (Sodium Chloride 0.9% 50 Ml Ivpb) 50 ml IV Q24HR@2100 [facility] Stop: 12/06/20 21:01 Last Admin: 12/03/20 02:26 Dose: Not Given Documented by: Zinc Sulfate (Zinc Sulfate 220 Mg Cap) 220 mg PO QDAY [facility] Last Admin: 12/03/20 10:08 Dose: 220 mg Documented by: Physical Examination Vital signs: Vital Signs Temp Pulse Resp BP Pulse Ox 98.3 F 73 25 H 122/65 92 12/02/20 03:36 12/02/20 03:36 12/02/20 03:36 12/02/20 03:36 12/02/20 03:36 Results - Laboratory Findings CBC and BMP: 12/03/20 03:48 12/03/20 03:48 PT/INR, D-dimer PT 12.5 Sec. (12.2-14.9) 12/02/20 03:58 INR 0.88 (0.87-1.13) 12/02/20 03:58 D-Dimer 1559.33 ng/mlDDU (0-234) H 12/02/20 03:58 Abnormal lab findings: Abnormal Labs 12/02/20 12/02/20 12/02/20 03:58 03:58 03:58 RBC 3.57 L Hgb 8.9 L Hct 27.2 L MCV 76 L MCH 25 L RDW 17.6 H Lymph % (Auto) 6.7 L Lymph # (Auto) 0.3 L Seg Neutrophils % 87.7 H Seg Neuts % (Manual) Lymphocytes % (Manual) Lymphocytes # (Manual) D-Dimer 1559.33 H Sodium 130 L Chloride 90.0 L BUN 20 H Glucose 346 H POC Glucose Hemoglobin A1c Calcium Magnesium 2.40 H Ferritin AST 43 H Lactate Dehydrogenase 582 H C-Reactive Protein 34.20 H Total Protein Albumin 3.1 L Coronavirus (PCR) 12/02/20 12/02/20 12/02/20 03:58 06:15 07:37 RBC Hgb Hct MCV MCH RDW Lymph % (Auto) Lymph # (Auto) Seg Neutrophils % Seg Neuts % (Manual) Lymphocytes % (Manual) Lymphocytes # (Manual) D-Dimer Sodium Chloride BUN Glucose POC Glucose 339 H Hemoglobin A1c 9.5 H Calcium Magnesium Ferritin 497.6 H AST Lactate Dehydrogenase C-Reactive Protein Total Protein Albumin Coronavirus (PCR) 12/02/20 12/02/20 12/02/20 08:15 11:52 13:29 RBC Hgb 9.7 L Hct MCV MCH RDW Lymph % (Auto) Lymph # (Auto) Seg Neutrophils % Seg Neuts % (Manual) Lymphocytes % (Manual) Lymphocytes # (Manual) D-Dimer Sodium Chloride BUN Glucose POC Glucose 305 H Hemoglobin A1c Calcium Magnesium Ferritin AST Lactate Dehydrogenase C-Reactive Protein Total Protein Albumin Coronavirus (PCR) Positive A 12/02/20 12/02/20 12/02/20 16:53 22:39 23:39 RBC Hgb Hct MCV MCH RDW Lymph % (Auto) Lymph # (Auto) Seg Neutrophils % Seg Neuts % (Manual) Lymphocytes % (Manual) Lymphocytes # (Manual) D-Dimer Sodium 131 L Chloride 93.8 L BUN 22 H Glucose 301 H POC Glucose 281 H 290 H Hemoglobin A1c Calcium Magnesium Ferritin AST Lactate Dehydrogenase C-Reactive Protein Total Protein 6.2 L Albumin 2.8 L Coronavirus (PCR) 12/03/20 12/03/20 12/03/20 03:48 03:48 08:59 RBC 3.46 L Hgb 8.6 L Hct 26.5 L MCV 77 L MCH 25 L RDW 18.2 H Lymph % (Auto) Lymph # (Auto) Seg Neutrophils % Seg Neuts % (Manual) 93.0 H Lymphocytes % (Manual) 3.0 L Lymphocytes # (Manual) 0.2 L D-Dimer Sodium 131 L Chloride 92.5 L BUN 22 H Glucose 279 H POC Glucose 258 H Hemoglobin A1c Calcium 8.2 L Magnesium Ferritin AST Lactate Dehydrogenase C-Reactive Protein Total Protein 5.6 L Albumin 2.8 L Coronavirus (PCR)
--- NOTE | 2020-12-03 14:19 | Progress Note ---
Assessment and Plan Cultures: SARS CoV2 PCR: Positive 12/02/2020 blood culture: In process A/P: 65-year-old female with diabetes, hypertension admitted with: #Bilateral pneumonia: Secondary to COVID-19. Severe disease. #Acute hypoxic respiratory failure: Secondary to above. On high flow nasal cannula #Diabetes mellitus, uncontrolled: HbA1c 9.5 Recs: IV/PO Dexamethasone 6 mg daily x 10 days IV remdesivir x 5 days Actemra ordered yesterday, administer when available continue empiric antibiotics x 5 days prophylactic anticoagulation based on d-dimer per hospital protocol trend ferritin, LDH, d-dimer, CRP every 2-3 days for risk stratification and to assess disease progression Carl Goldstein MD, FACP [facility] O: [phone] F: [phone] Subjective Date of service: 12/03/20 Interval history: No fever. Remains on high flow nasal cannula. Objective - Exam Narrative Exam: Physical Exam (reviewed in chart to minimize risk of transmission) Constitutional: deferred Head, Ears, Nose: deferred Eyes: deferred Neck: deferred Oral: deferred Cardiovascular: deferred Respiratory: deferred GI: deferred Musculoskeletal: deferred Skin: deferred Hem/Lymphatic: deferred Psych: deferred Neurological: deferred - Constitutional Vitals: Vital Signs Temp Pulse Resp BP Pulse Ox 98.7 F 83 32 H 130/63 87 12/03/20 10:46 12/03/20 10:53 12/03/20 10:46 12/03/20 10:46 12/03/20 10:53 Temperature -Last 24 Hours Temperature 98.7 F Temperature 98.2 F - Labs CBC & Chem 7: 12/03/20 03:48 12/03/20 03:48 Labs: Abnormal lab results 12/02/20 12/02/20 12/02/20 Range/Units 13:29 16:53 22:39 RBC (3.65-5.03) M/mm3 Hgb 9.7 L (10.1-14.3) gm/dl Hct (30.3-42.9) % MCV (79-97) fl MCH (28-32) pg RDW (13.2-15.2) % Seg Neuts % (Manual) (40.0-70.0) % Lymphocytes % (Manual) (13.4-35.0) % Lymphocytes # (Manual) (1.2-5.4) K/mm3 Sodium (137-145) mmol/L Chloride (98-107) mmol/L BUN (7-17) mg/dL Glucose (65-100) mg/dL POC Glucose 281 H 290 H (70-105) mg/dL Calcium (8.4-10.2) mg/dL Total Protein (6.3-8.2) g/dL Albumin (3.9-5) g/dL 12/02/20 12/03/20 12/03/20 Range/Units 23:39 03:48 03:48 RBC 3.46 L (3.65-5.03) M/mm3 Hgb 8.6 L (10.1-14.3) gm/dl Hct 26.5 L (30.3-42.9) % MCV 77 L (79-97) fl MCH 25 L (28-32) pg RDW 18.2 H (13.2-15.2) % Seg Neuts % (Manual) 93.0 H (40.0-70.0) % Lymphocytes % (Manual) 3.0 L (13.4-35.0) % Lymphocytes # (Manual) 0.2 L (1.2-5.4) K/mm3 Sodium 131 L 131 L (137-145) mmol/L Chloride 93.8 L 92.5 L (98-107) mmol/L BUN 22 H 22 H (7-17) mg/dL Glucose 301 H 279 H (65-100) mg/dL POC Glucose (70-105) mg/dL Calcium 8.2 L (8.4-10.2) mg/dL Total Protein 6.2 L 5.6 L (6.3-8.2) g/dL Albumin 2.8 L 2.8 L (3.9-5) g/dL 12/03/20 12/03/20 Range/Units 08:59 12:45 RBC (3.65-5.03) M/mm3 Hgb (10.1-14.3) gm/dl Hct (30.3-42.9) % MCV (79-97) fl MCH (28-32) pg RDW (13.2-15.2) % Seg Neuts % (Manual) (40.0-70.0) % Lymphocytes % (Manual) (13.4-35.0) % Lymphocytes # (Manual) (1.2-5.4) K/mm3 Sodium (137-145) mmol/L Chloride (98-107) mmol/L BUN (7-17) mg/dL Glucose (65-100) mg/dL POC Glucose 258 H 349 H (70-105) mg/dL Calcium (8.4-10.2) mg/dL Total Protein (6.3-8.2) g/dL Albumin (3.9-5) g/dL
[2020-12-03] MEDS: INSULIN GLARGINE 100 UNITS/ML SUB-Q SCH ×3 (14:33→23:09)
--- NOTE | 2020-12-03 17:10 | Vascular Lab Report ---
DUPLEX DOPPLER LOWER EXTREMITY VEINS, BILATERAL INDICATION / CLINICAL INFORMATION: swelling; pain. TECHNIQUE: Duplex doppler imaging was performed through the veins of both lower extremities using erick ous compression and other maneuvers. COMPARISON: None available. FINDINGS: RIGHT COMMON FEMORAL VEIN: Negative. RIGHT FEMORAL VEIN: Negative. RIGHT POPLITEAL VEIN: Negative. RIGHT CALF VEINS: Negative. LEFT COMMON FEMORAL VEIN: Negative. LEFT FEMORAL VEIN: Negative. LEFT POPLITEAL VEIN: Negative. LEFT CALF VEINS: Negative. ADDITIONAL FINDINGS: None. IMPRESSION: 1. No sonographic evidence for DVT in either lower extremity. Signer Name: Adelso Eaton MD Signed: 12/03/2020 5:05 PM Workstation Name: [id number]
[2020-12-03] MEDS: ASCORBIC ACID 500 MG TAB PO SCH (23:11)
[2020-12-03] MEDS: REMDESIVIR 100 MG in SODIUM CHLORIDE 0.9% 250ML 250 ML IV SCH (23:11)
--- NOTE | 2020-12-03 23:57 | Consultation ---
DATE OF CONSULTATION: 12/03/2020 PULMONARY CRITICAL CARE CONSULTATION NOTE CONSULTING PHYSICIAN: Dr. Bright. REASON FOR CONSULTATION: Acute hypoxemic respiratory failure. CHIEF COMPLAINT AND HISTORY OF PRESENT ILLNESS: As follows: The patient is a now 65-year-old female with past medical history significant for diabetes and hypertension, who came to the Emergency Room complaining of shortness of breath, anosmia, malaise, fatigue, generalized weakness. She presented to a local [facility] yesterday evening complaining of symptoms that had been going on for [address] angio done at [facility] revealed irregular bilateral ground glass opacifications. PE was not mentioned. She mentioned that her friend who she had been in close contact with for several days recently tested positive for COVID. She was tested and diagnosed indeed to be positive with COVID. She denied gross or streaky hemoptysis. Denied new-onset leg pain or swelling, either unilaterally or bilaterally or any suggestion of deep venous thrombosis. We were asked to assist with management. When I stopped by to see her, she was resting in bed, sitting up at the side of bed with mildly increased respiratory effort at rest, but tells me she was feeling better. With regards to tobacco use/abuse history, she denied tobacco use or abuse. This really is as much of the history of presentation as I have. PAST MEDICAL HISTORY: Diabetes, hypertension, history of GI bleed in 2016. PAST SURGICAL HISTORY: She has had right wrist surgery. MEDICATIONS: She was on at the time I stopped by to see her according to the medication administration record included the following: Tylenol 650 mg p.o. q. 4 hours p.r.n. mild pain or fevers, albuterol 2.5 mg nebulized or inhaled q. 3 hours p.r.n. shortness of breath, Zithromax 500 mg IV daily, Rocephin 1 gram IV daily, vitamin D3 5000 units p.o. daily, Decadron 6 mg p.o. daily, docusate sodium 100 mg p.o. b.i.d., Lovenox 40 mg subQ daily, Lantus insulin 30 units subQ b.i.d., insulin via sliding scale, Zofran 4 mg IV q. 6 hours p.r.n. nausea and vomiting, Percocet 5/325 one tablet p.o. q. 6 hours p.r.n. moderate pain, Protonix 40 mg p.o. b.i.d., she is getting remdesivir, she is to receive Actemra, zinc sulfate 220 mg p.o. daily. ALLERGIES: SHELLFISH. Nature of this allergy is unknown. DIET: Obese lady, denies acute weight loss or gain in the preceding few weeks to months. FAMILY AND SOCIAL HISTORY: Lives in the community. There is a history of diabetes and hypertension. She denies alcohol, tobacco or illicit drug use or abuse. Family history is otherwise noncontributory. REVIEW OF SYSTEMS: No loss of consciousness. No new-onset seizures. No new-onset focal weakness. Denies gross hematochezia or melena. Denies gross hematuria or dysuria. No hematemesis, no hemoptysis. Denies heat or cold intolerance. Denied polydipsia or polyuria. Complete 13-system review of systems obtained. Pertinent positives and/or negatives as in body of history above, otherwise noncontributory. PHYSICAL EXAMINATION: VITAL SIGNS: At presentation and since she has been afebrile, temperature was 98.3 Fahrenheit, pulse of 73, respiratory rate of 25, blood pressure 122/65, O2 sats 92%, inspired oxygen concentration at that time was not recorded; however, when I stopped by to see her, her O2 sats were 94% that was on 100% FiO2 via the Vapotherm and 40 liters of flow. GENERAL: She is an elderly lady, obese. Normocephalic, atraumatic, talking to me with mildly increased respiratory effort at rest. HEAD, EYES, EARS, NOSE, AND THROAT: Anicteric. No conjunctival erythema. Oropharynx was moist. NECK: No gross jugular venous distention, no thyromegaly. Grossly, there were no palpable lymph nodes in the supraclavicular or submandibular lymph node chains. LUNGS: Auscultation of both lung hassan significant for bibasilar inspiratory rales. No wheezing. HEART: Sounds 1 and 2 are heard, regular rate and rhythm at the time of my evaluation without overt rubs or murmurs. ABDOMEN: Soft, full, protuberant. Bowel sounds are positive, nontender, no palpable hepatosplenomegaly. EXTREMITIES: Without overt digital clubbing or cyanosis, no pedal edema. Pedal pulses are 2+ bilaterally. NEUROLOGIC: Pupils are equal, round, about 4 mm, reactive to light. Extraocular muscles and movements were intact. She moves all 4 extremities spontaneously. SKIN: Normal turgor in the area examined without overt cellulitis or rash. Please see the wound care nurses' notes for full description of her skin. PSYCHIATRIC: Mood was normal. Affect was appropriate. She had intact judgment and insight. LABORATORY DATA: From my review are as follows: White cell count 5000, hemoglobin 8.9, hematocrit 27.2, these are presentation labs and platelet count 231. INR 0.88. D-dimer 1559. Serum sodium 130, potassium 4.8, chloride 90, bicarbonate 27, BUN 20, creatinine 0.8, glucose was 346. Magnesium was up at 2.4. AST was up at 43, otherwise liver function tests essentially within normal limits. LDH was 582. CRP 34.2. Procalcitonin 1.18. Coronavirus PCR was positive. Two sets of blood cultures are no growth to date. Chest x-ray shows bilateral pulmonary infiltrates, borderline cardiomegaly, no gross pneumothorax. ASSESSMENT: 1. Acute hypoxemic respiratory failure secondary to COVID-19 infection. 2. COVID-19 infection. 3. Bilateral pneumonia. 4. Acute respiratory distress syndrome. 5. History of diabetes. 6. Hypertension. 7. Elevated serum inflammatory markers to include LDH, ferritin and D-dimers. 8. Anemia that is microcytic. PLAN: I do agree with current interventions. I will also add vitamin C as part of her nutritional supplementation treatments. An arterial blood gas will be gotten to better evaluate her oxygen delivery, pO2 I should say. I do agree with completing empiric community-acquired pneumonia therapy, especially in light of the elevation in her CRP and other serologies and also I agree with Actemra administration. She will complete remdesivir dose and we will continue systemic steroids. Hopefully, she does not decompensate. Bilevel positive airway ventilation therapy will first be offered. We will attempt to reduce nebulizer use and hopefully prevent aerosolization, however, acute intubation will be a last resort. Again, on GI prophylaxis with Protonix, on DVT prophylaxis with Lovenox. I will get bilateral lower extremity Dopplers to complete the venous thromboembolic disorder workup. A CT angiogram reportedly was done at [facility] and no reported pulmonary emboli and the history given. Flu and pneumonia vaccination will be addressed per protocol. Thank you very much for the consult. We will follow along and make further recommendations as picture progresses/becomes clearer. She is critically ill on life-sustaining interventions including continuous high flow nasal oxygen therapy at very high risk of from cardiopulmonary system decompensation at this time. I spent about 35-40 minutes of critical care time without overlap and excluding any procedural time that may be necessary. TID: [id number] RECEIPT: [id number] ROWAN/AMY
[2020-12-04 06:52] LABS: Alanine Aminotransferase 9 units/L (7-56); Albumin 2.6 g/dL (3.9-5); Blood Urea Nitrogen 23 mg/dL (7-17); Calcium 9.2 mg/dL (8.4-10.2); Hemolysis Index 1
[2020-12-04 06:57] LABS: BUN/Creatinine Ratio 33
[2020-12-04] MEDS: ASCORBIC ACID 500 MG TAB PO SCH ×2 (09:44→21:57)
[2020-12-04] MEDS: ZINC SULFATE 220 MG CAP PO SCH (09:44)
[2020-12-04] MEDS: CHOLECALCIFEROL (VIT D3) 5,000 UNIT TAB PO SCH (09:44)
[2020-12-04] MEDS: ENOXAPARIN 40 MG/0.4 ML INJ SUB-Q SCH (09:45)
[2020-12-04] MEDS: INSULIN GLARGINE 100 UNITS/ML SUB-Q SCH ×2 (09:45→22:37)
[2020-12-04] MEDS: DOCUSATE SODIUM 100 MG CAP PO SCH ×2 (09:45→21:57)
[2020-12-04] MEDS: PANTOPRAZOLE 40 MG TAB PO SCH ×2 (09:45→17:30)
[2020-12-04] MEDS: DEXAMETHASONE 4 MG TAB PO SCH (09:45)
[2020-12-04] MEDS: INSULIN LISPRO 100 UNIT/ML SUB-Q SCH ×4 (09:46→22:49)
[2020-12-04] MEDS: cefTRIAXone/NS 1 GM/50 ML 1 GM/50 ML BAG IV SCH (09:48)
[2020-12-04] MEDS: AZITHROMYCIN/NS 500 MG/250 ML 500 MG/250 ML BAG IV SCH (10:00)
--- NOTE | 2020-12-04 11:04 | Progress Note ---
Assessment and Plan Acute hypoxemic respiratory failure COVID-19 infection Bilateral pneumonia Acute respiratory distress syndrome DM II Hypertension Elevated serum inflammatory markers to include LDH, ferritin and D-dimers Anemia - continue awake proning - watch closely on continuous telemetry - will reduce BIPAP settings and see if she can tolerate; will schedule qhs - attempt to give breaks of NIV with HFNC during the day - changed to IV Decadron - continue to wean supplemental oxygen for target O2 sat's > 92% acutely - Aspiration precautions - continue care as below otherwise; - continue bronchodilators with pulmonary hygiene per RT - continue accuchecks with glycemic control per SSI (While critically ill target blood glucose of 140-180 mg/dL; avoid hypoglycemia) - avoid nephrotoxins, renally dose all medications - continue to avoid benzodiazepine's, reduce the possibility of delirium - completed Anti-infective's per ID rec's - prn analgesia per pain score - Maintenance of sleep-wake cycle, avoid delirium - G.I. & VTE prophylaxis - PT/OT/ROM exercises - mobility protocols for pressure ulcer prophylaxis - Monitor hemodynamics closely - continue other care per attending / other consultants COVID SPECIFIC INTERVENTIONS - Remdesivir as per ID/Pulmonary developed protocols (receiving) - continue systemic steroids for severe COVID-19 infection (Decadron) - follow repeat COVID tests results - zinc and vitamin C supplementation - Monitor inflammatory markers per facility protocol - ferritin, Ddimer, CRP - therapeutic anticoagulation per system Protocol based on d-dimer and clinical considerations (VTE Prophylaxis) - Continue contact and airborne isolation .... Re-evaluate in am & prn CONDITION: CRITICAL PROGNOSIS: GUARDED CODE STATUS: FULL CODE The high probability of a clinically significant, sudden or life-threatening deterioration of the [respiratory, cardiovascular & neurologic] system(s) required my full and direct attention, intervention and personal management. The aggregate critical care time was [34] minutes without overlap. Time includes spent on; [x] Data Review and interpretation [x] Patient assessment and monitoring of vital signs [x] Documentation [x] Medication orders and management Subjective Date of service: 12/04/20 Principal diagnosis: Ac hypoxemic resp failure; COVID-19 infection; Pneumonia; ARDS; DM II; HTN Interval history: Patient is seen today for: Acute hypoxemic respiratory failure; COVID-19 infection; Pneumonia; ARDS; DM II; HTN Seen and examined at bedside; 24hour events reviewed; nursing and respiratory care staff consulted; no adverse overnight events reported to me; decompensated overnight with worsening hypoxemia; unable to tolerate BIPAP but thankfully with proning her O2 sats have significantly increased Objective Vital Signs - 12hr 12/04/20 12/04/20 01:56 05:36 Temperature 98.9 F Pulse Rate 82 Respiratory 22 Rate Blood Pressure 121/61 O2 Sat by Pulse 92 72 L Oximetry Constitutional: no acute distress, other (elderly female with mildly increased respiratory effort at rest ) Eyes: non-icteric ENT: oropharynx moist Neck: supple, no lymphadenopathy, no JVD Effort: mildly labored Ascultation: Bilateral: rhonchi (scant; bases) Percussion: Bilateral: not dull Cardiovascular: regular rate and rhythm Gastrointestinal: normoactive bowel sounds, soft, non-tender, non-distended Integumentary: normal Extremities: no cyanosis, no edema, pulses normal, no ischemia or petechiae Neurologic: non-focal exam, pupils equal and round, CN II-XII normal, motor strength normal and Psychiatric: mood appropriate, affect normal CBC and BMP: 12/03/20 03:48 12/04/20 04:27 ABG, PT/INR, D-dimer: ABG ABG pH 7.530 (7.320-7.450) H 12/04/20 06:49 POC ABG pCO2 35.9 mmHg (32.0-48.0) 12/04/20 06:49 POC ABG pO2 37.6 mmHg (83-108) L 12/04/20 06:49 POC ABG HCO3 29.3 12/04/20 06:49 ABG O2 Saturation 73.0 (0-100) 12/04/20 06:49 PT/INR, D-dimer PT 12.5 Sec. (12.2-14.9) 12/02/20 03:58 INR 0.88 (0.87-1.13) 12/02/20 03:58 D-Dimer 1559.33 ng/mlDDU (0-234) H 12/02/20 03:58 Abnormal lab findings: Abnormal Labs 12/02/20 12/02/20 12/02/20 03:58 03:58 03:58 RBC 3.57 L Hgb 8.9 L Hct 27.2 L MCV 76 L MCH 25 L RDW 17.6 H Lymph % (Auto) 6.7 L Lymph # (Auto) 0.3 L Seg Neutrophils % 87.7 H Seg Neuts % (Manual) Lymphocytes % (Manual) Lymphocytes # (Manual) D-Dimer 1559.33 H ABG pH POC ABG pO2 ABG Hemoglobin ABG Oxyhemoglobin ABG Sodium ABG Chloride ABG Glucose Carboxyhemoglobin Sodium 130 L Chloride 90.0 L BUN 20 H Glucose 346 H POC Glucose Hemoglobin A1c Calcium Magnesium 2.40 H Ferritin AST 43 H Lactate Dehydrogenase 582 H C-Reactive Protein 34.20 H Total Protein Albumin 3.1 L Arterial Blood Glucose Coronavirus (PCR) 12/02/20 12/02/20 12/02/20 03:58 06:15 07:37 RBC Hgb Hct MCV MCH RDW Lymph % (Auto) Lymph # (Auto) Seg Neutrophils % Seg Neuts % (Manual) Lymphocytes % (Manual) Lymphocytes # (Manual) D-Dimer ABG pH POC ABG pO2 ABG Hemoglobin ABG Oxyhemoglobin ABG Sodium ABG Chloride ABG Glucose Carboxyhemoglobin Sodium Chloride BUN Glucose POC Glucose 339 H Hemoglobin A1c 9.5 H Calcium Magnesium Ferritin 497.6 H AST Lactate Dehydrogenase C-Reactive Protein Total Protein Albumin Arterial Blood Glucose Coronavirus (PCR) 12/02/20 12/02/20 12/02/20 08:15 11:52 13:29 RBC Hgb 9.7 L Hct MCV MCH RDW Lymph % (Auto) Lymph # (Auto) Seg Neutrophils % Seg Neuts % (Manual) Lymphocytes % (Manual) Lymphocytes # (Manual) D-Dimer ABG pH POC ABG pO2 ABG Hemoglobin ABG Oxyhemoglobin ABG Sodium ABG Chloride ABG Glucose Carboxyhemoglobin Sodium Chloride BUN Glucose POC Glucose 305 H Hemoglobin A1c Calcium Magnesium Ferritin AST Lactate Dehydrogenase C-Reactive Protein Total Protein Albumin Arterial Blood Glucose Coronavirus (PCR) Positive A 12/02/20 12/02/20 12/02/20 16:53 22:39 23:39 RBC Hgb Hct MCV MCH RDW Lymph % (Auto) Lymph # (Auto) Seg Neutrophils % Seg Neuts % (Manual) Lymphocytes % (Manual) Lymphocytes # (Manual) D-Dimer ABG pH POC ABG pO2 ABG Hemoglobin ABG Oxyhemoglobin ABG Sodium ABG Chloride ABG Glucose Carboxyhemoglobin Sodium 131 L Chloride 93.8 L BUN 22 H Glucose 301 H POC Glucose 281 H 290 H Hemoglobin A1c Calcium Magnesium Ferritin AST Lactate Dehydrogenase C-Reactive Protein Total Protein 6.2 L Albumin 2.8 L Arterial Blood Glucose Coronavirus (PCR) 12/03/20 12/03/20 12/03/20 03:48 03:48 08:59 RBC 3.46 L Hgb 8.6 L Hct 26.5 L MCV 77 L MCH 25 L RDW 18.2 H Lymph % (Auto) Lymph # (Auto) Seg Neutrophils % Seg Neuts % (Manual) 93.0 H Lymphocytes % (Manual) 3.0 L Lymphocytes # (Manual) 0.2 L D-Dimer ABG pH POC ABG pO2 ABG Hemoglobin ABG Oxyhemoglobin ABG Sodium ABG Chloride ABG Glucose Carboxyhemoglobin Sodium 131 L Chloride 92.5 L BUN 22 H Glucose 279 H POC Glucose 258 H Hemoglobin A1c Calcium 8.2 L Magnesium Ferritin AST Lactate Dehydrogenase C-Reactive Protein Total Protein 5.6 L Albumin 2.8 L Arterial Blood Glucose Coronavirus (PCR) 12/03/20 12/03/20 12/03/20 12:45 15:57 17:01 RBC Hgb Hct MCV MCH RDW Lymph % (Auto) Lymph # (Auto) Seg Neutrophils % Seg Neuts % (Manual) Lymphocytes % (Manual) Lymphocytes # (Manual) D-Dimer ABG pH 7.527 H POC ABG pO2 50.4 L ABG Hemoglobin ABG Oxyhemoglobin ABG Sodium 129.8 L ABG Chloride 95.0 L ABG Glucose 394 H Carboxyhemoglobin Sodium Chloride BUN Glucose POC Glucose 349 H 359 H Hemoglobin A1c Calcium Magnesium Ferritin AST Lactate Dehydrogenase C-Reactive Protein Total Protein Albumin Arterial Blood Glucose 394 H Coronavirus (PCR) 12/03/20 12/04/20 12/04/20 21:16 04:27 06:49 RBC Hgb Hct MCV MCH RDW Lymph % (Auto) Lymph # (Auto) Seg Neutrophils % Seg Neuts % (Manual) Lymphocytes % (Manual) Lymphocytes # (Manual) D-Dimer ABG pH 7.530 H POC ABG pO2 37.6 L ABG Hemoglobin 9.6 L ABG Oxyhemoglobin 72.5 L ABG Sodium 132.3 L ABG Chloride ABG Glucose 180 H Carboxyhemoglobin 0.4 L Sodium 136 L Chloride 97.3 L BUN 23 H Glucose 166 H POC Glucose 295 H Hemoglobin A1c Calcium Magnesium Ferritin AST Lactate Dehydrogenase C-Reactive Protein Total Protein 5.7 L Albumin 2.6 L Arterial Blood Glucose 180 H Coronavirus (PCR) 12/04/20 07:49 RBC Hgb Hct MCV MCH RDW Lymph % (Auto) Lymph # (Auto) Seg Neutrophils % Seg Neuts % (Manual) Lymphocytes % (Manual) Lymphocytes # (Manual) D-Dimer ABG pH POC ABG pO2 ABG Hemoglobin ABG Oxyhemoglobin ABG Sodium ABG Chloride ABG Glucose Carboxyhemoglobin Sodium Chloride BUN Glucose POC Glucose 180 H Hemoglobin A1c Calcium Magnesium Ferritin AST Lactate Dehydrogenase C-Reactive Protein Total Protein Albumin Arterial Blood Glucose Coronavirus (PCR) Prior PFT's, U/S of legs: report reviewed (dopplers negative for DVT) Allied health notes reviewed: nursing
[2020-12-04] MEDS ORDERED: TOCILIZUMAB IV ONE (13:00)
[2020-12-04] MEDS ORDERED: SODIUM CHLORIDE 0.9% IV ONE (13:00)
--- NOTE | 2020-12-04 13:06 | Progress Note ---
Assessment and Plan Assessment and plan: 65-year-old -[place] female with history of hypertension, diabetes, and GI bleed who presents [facility] ED with complaints of shortness of breath, loss of taste and smell, malaise, fatigue and weakness. Of note this is a [place] patient and [place] has agreed to the admission. Patient presented to her local [place] clinic yesterday evening with complaints of Covid symptoms x6 days. CT angio chest done at [place] revealed extensive irregular bilateral groundglass opacities, and patient was referred to ED for further evaluation and treatment. Admits to known exposure, states that her friend whom she was in close contact with for several days recently tested positive for Covid. Endorses mild generalized headache, chest tightening, diarrhea, body aches, loss of smell and taste, and shortness of breath. Denies fever, chills, abdominal pain, rash, hemoptysis, hematochezia, melena, history of restrictive/obstructive lung disease, or medication noncompliant COVID-19 test is positive patient is high flow in progress 40liters/100%, will obtain pulmonary consultation. Will adjust glargine for better insulin coverage. Continue remdesivir and Solu-Medrol. Will monitor progression. Encourage prone positioning. We will give a dose of Lasix today. Would like to go to full dose anticoagulation but patient's anemia is precluding And also patient with noted positive stool and remote history of GI bleed in 2016 if no worsening renal function with the Lasix given today will consider CTA in the morning if patient is not improving 12/04: Patient seen and examined, considering worsening hypoxia and stable renal function will order CTA to rule out pulmonary embolism. Will give one-time full dose anticoagulation and continue the prophylactic dose as being careful due to history of GI bleed. And noted anemia. 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 For now continue steroid therapy will give additional dose of Lasix today. Blood sugar is better controlled. Continue steroids and remdesivir. Patient also Getting Actmera also. Patient was able to prone today. COVID-19 pneumonia -Admits to known exposure -Presented at outside facility ([place]) with Covid symptom complaints, CT angio chest bilateral ground glass opacities, consistent with Covid -Covid inflammatory markers elevated -PCR pending -On zinc and vitamin D - started on Decadron -ID consulted Pneumonia -Likely due to COVID-19 -CXR shows bilateral probable Covid pneumonia -Cultures pending -Started on IV ABX -Monitor CBC Acute hypoxic respiratory failure -No Baseline home oxygen requirements -Currently on supplemental -Monitor saturations -Continue supplemental oxygen wean as tolerated -Albuterol Anemia -Guaiac positive stool, remote history of GI bleed (2016) -Trend H&H -Hemoglobin on admission 8.9 -Continue to monitor hemoglobin -Transfuse as needed for hgb<7 DM2 -Uncontrolled, with hyperglycemia -POC BG monitoring -Schedule Lantus and SSI coverage prn -HgbA1C pending Hyponatremia GI and DVT PPX -On protonix and lovenox VTE prophylaxis?: Chemical, Mechanical The high probability of a clinically significant, sudden or life threatening deterioration of the [pulmonary] system(s) required my full and direct attention, intervention and personal management. The aggregate critical care time was [35] minutes. This time is in addition to time spent performing reported procedures but includes the following: [x] Data Review and interpretation [x] Patient assessment and monitoring of vital signs [x] Documentation [x] Medication orders and management History Interval history: Patient seen and examined remains hypoxic severe shortness of breath. On high flow and NRBM. Was more hypoxic overnight Hospitalist Physical - Physical exam Narrative exam: VITAL SIGNS: Reviewed. GENERAL: The patient appears normally developed, in moderate distress speaks in single sentences. On high flow vital signs as documented. HEAD: No signs of head trauma. EYES: Pupils are equal. Extraocular motions intact. EARS: Hearing grossly intact. MOUTH: Oropharynx is normal. NECK: No adenopathy, no JVD. CHEST: Chest with diminished breath sounds bilaterally. No wheezes, rales, or rhonchi. CARDIAC: Regular rate and rhythm. S1 and S2, without murmurs, gallops, or rubs. VASCULAR: No Edema. Peripheral pulses normal and equal in all extremities. ABDOMEN: Soft, non tender and non distended. No rebound or guarding, and no masses palpated. Bowel Sounds normal. MUSCULOSKELETAL: Good range of motion of all major joints. Extremities without clubbing, cyanosis or edema. NEUROLOGIC EXAM: Alert and oriented x 3 No focal sensory or strength deficits. Speech normal short sentences. Follows commands. PSYCHIATRIC: Mood calm but likely because she is trying not to exert herself SKIN: detail exam as documented in skin assessment - Constitutional Vitals: Temp Pulse Resp BP Pulse Ox 98.9 F 82 22 121/61 88 12/04/20 05:36 12/04/20 05:36 12/04/20 05:36 12/04/20 05:36 12/04/20 09:35 HEART Score - HEART Score Troponin: Troponin T < 0.010 ng/mL (0.00-0.029) 12/02/20 03:58 Results - Labs CBC & Chem 7: 12/03/20 03:48 12/04/20 04:27 Labs: Laboratory Last Values WBC 7.8 K/mm3 (4.5-11.0) 12/03/20 03:48 RBC 3.46 M/mm3 (3.65-5.03) L 12/03/20 03:48 Hgb 8.6 gm/dl (10.1-14.3) L 12/03/20 03:48 Hct 26.5 % (30.3-42.9) L 12/03/20 03:48 MCV 77 fl (79-97) L 12/03/20 03:48 MCH 25 pg (28-32) L 12/03/20 03:48 MCHC 33 % (30-34) 12/03/20 03:48 RDW 18.2 % (13.2-15.2) H 12/03/20 03:48 Plt Count 261 K/mm3 (140-440) 12/03/20 03:48 Lymph % (Auto) 6.7 % (13.4-35.0) L 12/02/20 03:58 [place] % (Auto) 5.4 % (0.0-7.3) 12/02/20 03:58 Eos % (Auto) 0.0 % (0.0-4.3) 12/02/20 03:58 Baso % (Auto) 0.2 % (0.0-1.8) 12/02/20 03:58 Lymph # (Auto) 0.3 K/mm3 (1.2-5.4) L 12/02/20 03:58 [place] # (Auto) 0.3 K/mm3 (0.0-0.8) 12/02/20 03:58 Eos # (Auto) 0.0 K/mm3 (0.0-0.4) 12/02/20 03:58 Baso # (Auto) 0.0 K/mm3 (0.0-0.1) 12/02/20 03:58 Add Manual Diff Complete 12/03/20 03:48 Total Counted 100 12/03/20 03:48 Seg Neutrophils % Embedded Nurse 12/03/20 03:48 Seg Neuts % (Manual) 93.0 % (40.0-70.0) H 12/03/20 03:48 Band Neutrophils % 1.0 % 12/03/20 03:48 Lymphocytes % (Manual) 3.0 % (13.4-35.0) L 12/03/20 03:48 Monocytes % (Manual) 3.0 % (0.0-7.3) 12/03/20 03:48 Nucleated RBC % Not Reportable 12/03/20 03:48 Seg Neutrophils # 4.4 K/mm3 (1.8-7.7) 12/02/20 03:58 Seg Neutrophils # Man 7.3 K/mm3 (1.8-7.7) 12/03/20 03:48 Band Neutrophils # 0.1 K/mm3 12/03/20 03:48 Lymphocytes # (Manual) 0.2 K/mm3 (1.2-5.4) L 12/03/20 03:48 Abs React Lymphs (Man) 0.0 K/mm3 12/03/20 03:48 Monocytes # (Manual) 0.2 K/mm3 (0.0-0.8) 12/03/20 03:48 Eosinophils # (Manual) 0.0 K/mm3 (0.0-0.4) 12/03/20 03:48 Basophils # (Manual) 0.0 K/mm3 (0.0-0.1) 12/03/20 03:48 Metamyelocytes # 0.0 K/mm3 12/03/20 03:48 Myelocytes # 0.0 K/mm3 12/03/20 03:48 Promyelocytes # 0.0 K/mm3 12/03/20 03:48 Blast Cells # 0.0 K/mm3 12/03/20 03:48 WBC Morphology Not Reportable 12/03/20 03:48 Hypersegmented Neuts Not Reportable 12/03/20 03:48 Hyposegmented Neuts Not Reportable 12/03/20 03:48 Hypogranular Neuts Not Reportable 12/03/20 03:48 Smudge Cells Not Reportable 12/03/20 03:48 Toxic Granulation Not Reportable 12/03/20 03:48 Toxic Vacuolation Not Reportable 12/03/20 03:48 Dohle Bodies Not Reportable 12/03/20 03:48 Pelger-Huet Anomaly Not Reportable 12/03/20 03:48 Minna Rods Not Reportable 12/03/20 03:48 Platelet Estimate Consistent w auto 12/03/20 03:48 Clumped Platelets Not Reportable 12/03/20 03:48 Plt Clumps, EDTA Not Reportable 12/03/20 03:48 Large Platelets Not Reportable 12/03/20 03:48 Giant Platelets Not Reportable 12/03/20 03:48 Platelet Satelliting Not Reportable 12/03/20 03:48 Plt Morphology Comment Not Reportable 12/03/20 03:48 RBC Morphology Not Reportable 12/03/20 03:48 Dimorphic RBCs Not Reportable 12/03/20 03:48 Polychromasia Not Reportable 12/03/20 03:48 Hypochromasia 1+ 12/03/20 03:48 Poikilocytosis Not Reportable 12/03/20 03:48 Anisocytosis 1+ 12/03/20 03:48 Microcytosis Not Reportable 12/03/20 03:48 Macrocytosis Not Reportable 12/03/20 03:48 Spherocytes Not Reportable 12/03/20 03:48 Pappenheimer Bodies Not Reportable 12/03/20 03:48 Sickle Cells Not Reportable 12/03/20 03:48 Target Cells Not Reportable 12/03/20 03:48 Tear Drop Cells Not Reportable 12/03/20 03:48 Ovalocytes Not Reportable 12/03/20 03:48 Helmet Cells Not Reportable 12/03/20 03:48 [place] Bodies Not Reportable 12/03/20 03:48 Gun[place] Rings Not Reportable 12/03/20 03:48 Goyo Cells Not Reportable 12/03/20 03:48 Bite Cells Not Reportable 12/03/20 03:48 Crenated Cell Not Reportable 12/03/20 03:48 Elliptocytes Not Reportable 12/03/20 03:48 Acanthocytes (Spur) Not Reportable 12/03/20 03:48 Rouleaux Not Reportable 12/03/20 03:48 Hemoglobin C Crystals Not Reportable 12/03/20 03:48 Schistocytes Not Reportable 12/03/20 03:48 Malaria parasites Not Reportable 12/03/20 03:48 Po Bodies Not Reportable 12/03/20 03:48 Hem Pathologist Commnt No 12/03/20 03:48 PT 12.5 Sec. (12.2-14.9) 12/02/20 03:58 INR 0.88 (0.87-1.13) 12/02/20 03:58 APTT 32.1 Sec. (24.2-36.6) 12/02/20 03:58 D-Dimer 1559.33 ng/mlDDU (0-234) H 12/02/20 03:58 ABG pH 7.530 (7.320-7.450) H 12/04/20 06:49 POC ABG pCO2 35.9 mmHg (32.0-48.0) 12/04/20 06:49 POC ABG pO2 37.6 mmHg (83-108) L 12/04/20 06:49 POC ABG HCO3 29.3 12/04/20 06:49 ABG O2 Saturation 73.0 (0-100) 12/04/20 06:49 POC ABG Base Excess 6.3 12/04/20 06:49 ABG Hemoglobin 9.6 (12.0-17.5) L 12/04/20 06:49 ABG Oxyhemoglobin 72.5 (94-98) L 12/04/20 06:49 ABG Methemoglobin 0.3 (0.0-1.5) 12/04/20 06:49 ABG Sodium 132.3 mmol/L (136.0-145.0) L 12/04/20 06:49 ABG Potassium 3.7 mmol/L (3.40-4.50) 12/04/20 06:49 ABG Chloride 98.0 mmol/L (98-107) 12/04/20 06:49 ABG Glucose 180 mg/dL (65-95) H 12/04/20 06:49 Carboxyhemoglobin 0.4 (0.5-1.5) L 12/04/20 06:49 FiO2 % 100.0 12/04/20 06:49 Sodium 136 mmol/L (137-145) L 12/04/20 04:27 Potassium 4.4 mmol/L (3.6-5.0) 12/04/20 04:27 Chloride 97.3 mmol/L (98-107) L 12/04/20 04:27 Carbon Dioxide 29 mmol/L (22-30) 12/04/20 04:27 Anion Gap 14 mmol/L 12/04/20 04:27 BUN 23 mg/dL (7-17) H 12/04/20 04:27 Creatinine 0.7 mg/dL (0.6-1.2) 12/04/20 04:27 Estimated GFR > 60 ml/min 12/04/20 04:27 BUN/Creatinine Ratio 33 % 12/04/20 04:27 Glucose 166 mg/dL (65-100) H 12/04/20 04:27 POC Glucose 213 mg/dL (70-105) H 12/04/20 11:37 Hemoglobin A1c 9.5 % (4-6) H 12/02/20 06:15 Calcium 9.2 mg/dL (8.4-10.2) 12/04/20 04:27 Magnesium 2.40 mg/dL (1.7-2.3) H 12/02/20 03:58 Ferritin 497.6 ng/mL (10.0-200.0) H 12/02/20 03:58 Total Bilirubin 0.20 mg/dL (0.1-1.2) 12/04/20 04:27 AST 24 units/L (5-40) 12/04/20 04:27 ALT 9 units/L (7-56) 12/04/20 04:27 Alkaline Phosphatase 72 units/L (35-129) 12/04/20 04:27 Lactate Dehydrogenase 582 units/L (91-180) H 12/02/20 03:58 Troponin T < 0.010 ng/mL (0.00-0.029) 12/02/20 03:58 C-Reactive Protein 34.20 mg/dL (0.00-1.30) H 12/02/20 03:58 Total Protein 5.7 g/dL (6.3-8.2) L 12/04/20 04:27 Albumin 2.6 g/dL (3.9-5) L 12/04/20 04:27 Albumin/Globulin Ratio 0.8 % 12/04/20 04:27 Procalcitonin 1.18 ng/mL (<0.15) 12/02/20 03:58 Arterial Blood Glucose 180 mg/dL (65-95) H 12/04/20 06:49 Arterial Blood Ionized Calcium 4.8 mg/dL (4.6-5.3) 12/04/20 06:49 Coronavirus (PCR) Positive (Negative) A 12/02/20 08:15 Microbiology: Microbiology 12/02/20 13:29 Peripheral/Venous Blood Culture - Preliminary NO GROWTH AFTER 24 HOURS 12/02/20 13:29 Peripheral/Venous Blood Culture - Preliminary NO GROWTH AFTER 24 HOURS Carpenter/IV: Voiding Method External Female Catheter Active Medications - Current Medications Current Medications: Generic Name Dose Route Start Last Admin Trade Name Freq PRN Reason Stop Dose Admin Acetaminophen 650 mg 12/02/20 05:09 Acetaminophen 325 Mg Tab PO Q4H PRN Pain MILD(1-3)/Fever >100.5/LARA Albuterol 2.5 mg 12/02/20 05:09 Albuterol 2.5 Mg/3 Ml Nebu IH Q3HRT PRN Shortness Of Breath Ascorbic Acid 500 mg 12/03/20 22:00 12/04/20 09:44 Ascorbic Acid 500 Mg Tab PO 500 mg BID AZAEL Administration Cholecalciferol 5,000 unit 12/02/20 10:00 12/04/20 09:44 Cholecalciferol (Vit D3) 5,000 Unit Tab PO 5,000 unit DAILY AZAEL Administration Dexamethasone 6 mg 12/05/20 10:00 Dexamethasone 4 Mg/Ml Vial IV DAILY AZAEL Dextrose 50 ml 12/02/20 05:09 Dextrose 50% In Water (25gm) 50 Ml Syringe IV Q30MIN PRN Hypoglycemia Protocol Docusate Sodium 100 mg 12/02/20 10:00 12/04/20 09:45 Docusate Sodium 100 Mg Cap PO 100 mg BID AZAEL Administration Enoxaparin Sodium 40 mg 12/02/20 10:00 12/04/20 09:45 Enoxaparin 40 Mg/0.4 Ml Inj SUB-Q 40 mg QDAY AZAEL Administration Azithromycin 500 mg in 250 mls @ 250 mls/hr 12/03/20 08:00 12/04/20 10:00 Zithromax/Ns IV 12/06/20 08:59 250 mls/hr Q24H AZAEL Administration Ceftriaxone Sodium 1 gm in 50 mls @ 100 mls/hr 12/03/20 08:00 12/04/20 09:48 Rocephin/Ns 1 Gm/50 Ml IV 12/06/20 08:29 100 mls/hr Q24H AZAEL Administration Protocol REMDESIVIR 100 mg/ Sodium 250 mls @ 500 mls/hr 12/03/20 21:00 12/03/20 23:11 Chloride IV 12/06/20 21:29 500 mls/hr Q24HR@2100 AZAEL Administration TOCILIZUMAB 486 mg/ Sodium 102.7 mls @ 120 mls/hr 12/04/20 13:00 12/04/20 12:40 Chloride IV 12/04/20 13:51 120 mls/hr ONCE ONE Administration Insulin Glargine 30 units 12/03/20 11:00 12/04/20 09:45 Insulin Glargine 100 Units/Ml SUB-Q 30 units BID AZAEL Administration Insulin Human Lispro 0 unit 12/02/20 07:30 12/04/20 12:41 Insulin Lispro 100 Unit/Ml SUB-Q 4 unit ACHS AZAEL Administration Protocol Naloxone HCl 0.1 mg 12/02/20 05:09 Naloxone 0.4 Mg/1 Ml Inj IV Q2MIN PRN Res Rate </= 8 or 02 SAT < 92% Ondansetron HCl 4 mg 12/02/20 05:09 Ondansetron 4 Mg/2 Ml Inj IV Q6H PRN Nausea And Vomiting Oxycodone/Acetaminophen 1 tab 12/02/20 05:09 Oxycodone /Acetaminophen 5-325mg Tab PO Q6H PRN Pain, Moderate (4-6) Pantoprazole Sodium 40 mg 12/02/20 08:00 12/04/20 09:45 Pantoprazole 40 Mg Tab PO 40 mg BIDAC AZAEL Administration Sodium Chloride 10 ml 12/02/20 10:00 12/04/20 09:48 Sodium Chloride 0.9% 10 Ml Flush Syringe IV 10 ml BID AZAEL Administration Sodium Chloride 10 ml 12/02/20 05:09 Sodium Chloride 0.9% 10 Ml Flush Syringe IV PRN PRN LINE FLUSH Sodium Chloride 50 ml 12/02/20 21:00 12/03/20 23:11 Sodium Chloride 0.9% 50 Ml Ivpb IV 12/06/20 21:01 50 ml Q24HR@2100 AZAEL Administration Zinc Sulfate 220 mg 12/02/20 10:00 12/04/20 09:44 Zinc Sulfate 220 Mg Cap PO 220 mg QDAY AZAEL Administration Nutrition/Malnutrition Assess - Dietary Evaluation Nutrition/Malnutrition Findings: Nutrition Notes Start: 12/03/20 10:33 Freq: Status: Active Protocol: Document 12/03/20 10:33 EB (Rec: 12/03/20 10:36 EB [id number]) Nutrition Notes Need for Assessment generated from: [employer] Initial or Follow up Brief Note Current Diagnosis Respiratory Failure Other Pertinent Diagnosis Covid +, Hyperglycemia Current Diet Consistent CHO Labs/Tests Na 131 Glu 279 Pertinent Medications reviewed Height 4 ft 11.84 in Weight 64.864 kg Kirk Body Weight (kg) 45.09 BMI 28.0 Weight Status Overweight Subjective/Other Information RD screened for skin risk, however, Braulio: 20. Skin Integrity/Comment Intact Nutrition Intervention Revisit per MD consult or patient Sign Off request:
--- NOTE | 2020-12-04 13:12 | Progress Note ---
Assessment and Plan Cultures: SARS CoV2 PCR: Positive 12/02/2020 blood culture: no growth A/P: 65-year-old female with diabetes, hypertension admitted with: #Bilateral pneumonia: Secondary to COVID-19. Severe disease. #Acute hypoxic respiratory failure: Secondary to above. On high flow nasal cannula. #Diabetes mellitus, uncontrolled: HbA1c 9.5 Recs: -IV/PO Dexamethasone 6 mg daily x 10 days -continue IV remdesivir x 5 days -Actemra administered today per RN -continue empiric antibiotics x 5 days -prophylactic anticoagulation based on d-dimer per hospital protocol -trend ferritin, LDH, d-dimer, CRP every 2-3 days for risk stratification and to assess disease progression Carl Goldstein MD, FACP [facility] ([facility] O: [phone] F: [phone] Subjective Date of service: 12/04/20 Principal diagnosis: Ac hypoxemic resp failure; COVID-19 infection; Pneumonia; ARDS; DM II; HTN Interval history: No fever. Remains on high flow nasal cannula. Actemra administered today. Objective - Exam Narrative Exam: Physical Exam (reviewed in chart to minimize risk of transmission) Constitutional: deferred Head, Ears, Nose: deferred Eyes: deferred Neck: deferred Oral: deferred Cardiovascular: deferred Respiratory: deferred GI: deferred Musculoskeletal: deferred Skin: deferred Hem/Lymphatic: deferred Psych: deferred Neurological: deferred - Constitutional Vitals: Vital Signs Temp Pulse Resp BP Pulse Ox 98.9 F 82 22 121/61 88 12/04/20 05:36 12/04/20 05:36 12/04/20 05:36 12/04/20 05:36 12/04/20 09:35 Temperature -Last 24 Hours Temperature 98.9 F Temperature 97.5 F - Labs CBC & Chem 7: 12/03/20 03:48 12/04/20 04:27 Labs: Abnormal lab results 12/03/20 12/03/20 12/03/20 Range/Units 15:57 17:01 21:16 ABG pH 7.527 H (7.320-7.450) POC ABG pO2 50.4 L (83-108) mmHg ABG Hemoglobin (12.0-17.5) ABG Oxyhemoglobin (94-98) ABG Sodium 129.8 L (136.0-145.0) mmol/L ABG Chloride 95.0 L (98-107) mmol/L ABG Glucose 394 H (65-95) mg/dL Carboxyhemoglobin (0.5-1.5) Sodium (137-145) mmol/L Chloride (98-107) mmol/L BUN (7-17) mg/dL Glucose (65-100) mg/dL POC Glucose 359 H 295 H (70-105) mg/dL Total Protein (6.3-8.2) g/dL Albumin (3.9-5) g/dL Arterial Blood Glucose 394 H (65-95) mg/dL 12/04/20 12/04/20 12/04/20 Range/Units 04:27 06:49 07:49 ABG pH 7.530 H (7.320-7.450) POC ABG pO2 37.6 L (83-108) mmHg ABG Hemoglobin 9.6 L (12.0-17.5) ABG Oxyhemoglobin 72.5 L (94-98) ABG Sodium 132.3 L (136.0-145.0) mmol/L ABG Chloride (98-107) mmol/L ABG Glucose 180 H (65-95) mg/dL Carboxyhemoglobin 0.4 L (0.5-1.5) Sodium 136 L (137-145) mmol/L Chloride 97.3 L (98-107) mmol/L BUN 23 H (7-17) mg/dL Glucose 166 H (65-100) mg/dL POC Glucose 180 H (70-105) mg/dL Total Protein 5.7 L (6.3-8.2) g/dL Albumin 2.6 L (3.9-5) g/dL Arterial Blood Glucose 180 H (65-95) mg/dL 12/04/20 Range/Units 11:37 ABG pH (7.320-7.450) POC ABG pO2 (83-108) mmHg ABG Hemoglobin (12.0-17.5) ABG Oxyhemoglobin (94-98) ABG Sodium (136.0-145.0) mmol/L ABG Chloride (98-107) mmol/L ABG Glucose (65-95) mg/dL Carboxyhemoglobin (0.5-1.5) Sodium (137-145) mmol/L Chloride (98-107) mmol/L BUN (7-17) mg/dL Glucose (65-100) mg/dL POC Glucose 213 H (70-105) mg/dL Total Protein (6.3-8.2) g/dL Albumin (3.9-5) g/dL Arterial Blood Glucose (65-95) mg/dL
[2020-12-04] MEDS: SODIUM CHLORIDE 0.9% 50 ML IVPB IV SCH (21:56)
[2020-12-04] MEDS: REMDESIVIR 100 MG in SODIUM CHLORIDE 0.9% 250ML 250 ML IV SCH (21:56)
[2020-12-05 07:12] LABS: Alanine Aminotransferase 9 units/L (7-56); Albumin 2.8 g/dL (3.9-5); Blood Urea Nitrogen 19 mg/dL (7-17); Calcium 9.2 mg/dL (8.4-10.2); Hemolysis Index 7
[2020-12-05 07:18] LABS: BUN/Creatinine Ratio 27
[2020-12-05] MEDS: CHOLECALCIFEROL (VIT D3) 5,000 UNIT TAB PO SCH (09:10)
[2020-12-05] MEDS: ENOXAPARIN 40 MG/0.4 ML INJ SUB-Q SCH (09:10)
[2020-12-05] MEDS: PANTOPRAZOLE 40 MG TAB PO SCH ×2 (09:10→18:17)
[2020-12-05] MEDS: dexAMETHasone 4 MG/ML VIAL IV SCH (09:10)
[2020-12-05] MEDS: DOCUSATE SODIUM 100 MG CAP PO SCH ×2 (09:10→22:33)
[2020-12-05] MEDS: INSULIN LISPRO 100 UNIT/ML SUB-Q SCH ×4 (09:11→21:49)
[2020-12-05] MEDS: ASCORBIC ACID 500 MG TAB PO SCH ×2 (09:11→22:34)
[2020-12-05] MEDS: cefTRIAXone/NS 1 GM/50 ML 1 GM/50 ML BAG IV SCH (09:17)
[2020-12-05] MEDS: AZITHROMYCIN/NS 500 MG/250 ML 500 MG/250 ML BAG IV SCH (09:18)
[2020-12-05] MEDS: INSULIN GLARGINE 100 UNITS/ML SUB-Q SCH ×2 (09:18→21:49)
--- NOTE | 2020-12-05 11:44 | Progress Note ---
Assessment and Plan Assessment and plan: 65-year-old -[place] female with history of hypertension, diabetes, and GI bleed who presents [facility] ED with complaints of shortness of breath, loss of taste and smell, malaise, fatigue and weakness. Of note this is a [facility] patient and [facility] has agreed to the admission. Patient presented to her local [facility] clinic yesterday evening with complaints of Covid symptoms x6 days. CT angio chest done at [facility] revealed extensive irregular bilateral groundglass opacities, and patient was referred to ED for further evaluation and treatment. Admits to known exposure, states that her friend whom she was in close contact with for several days recently tested positive for Covid. Endorses mild generalized headache, chest tightening, diarrhea, body aches, loss of smell and taste, and shortness of breath. Denies fever, chills, abdominal pain, rash, hemoptysis, hematochezia, melena, history of restrictive/obstructive lung disease, or medication noncompliant COVID-19 test is positive patient is high flow in progress 40liters/100%, will obtain pulmonary consultation. Will adjust glargine for better insulin coverage. Continue remdesivir and Solu-Medrol. Will monitor progression. Encourage prone positioning. We will give a dose of Lasix today. Would like to go to full dose anticoagulation but patient's anemia is precluding And also patient with noted positive stool and remote history of GI bleed in 2016 if no worsening renal function with the Lasix given today will consider CTA in the morning if patient is not improving 12/04: Patient seen and examined, considering worsening hypoxia and stable renal function will order CTA to rule out pulmonary embolism. Will give one-time full dose anticoagulation and continue the prophylactic dose as being careful due to history of GI bleed. And noted anemia. 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 For now continue steroid therapy will give additional dose of Lasix today. Blood sugar is better controlled. Continue steroids and remdesivir. Patient also Getting Actmera also. Patient was able to prone today. 12/05: Patient s/p Actemra. Continue supportive care she is prone. She continues on steroids and remdesivir. We will give additional Lasix today and monitor renal function in a.m. She remains on high flow and nonrebreather mask/sign of the severity of her hypoxia COVID-19 pneumonia -Admits to known exposure -Presented at outside facility ([facility]) with Covid symptom complaints, CT angio chest bilateral ground glass opacities, consistent with Covid -Covid inflammatory markers elevated -PCR pending -On zinc and vitamin D - started on Decadron -ID consulted Pneumonia -Likely due to COVID-19 -CXR shows bilateral probable Covid pneumonia -Cultures pending -Started on IV ABX -Monitor CBC Acute hypoxic respiratory failure -No Baseline home oxygen requirements -Currently on supplemental -Monitor saturations -Continue supplemental oxygen wean as tolerated -Albuterol Anemia -Guaiac positive stool, remote history of GI bleed (2015) -Trend H&H -Hemoglobin on admission 8.9 -Continue to monitor hemoglobin -Transfuse as needed for hgb<7 DM2 -Uncontrolled, with hyperglycemia -POC BG monitoring -Schedule Lantus and SSI coverage prn -HgbA1C pending Hyponatremia GI and DVT PPX -On protonix and lovenox VTE prophylaxis?: Chemical, Mechanical The high probability of a clinically significant, sudden or life threatening deterioration of the [pulmonary] system(s) required my full and direct attention, intervention and personal management. The aggregate critical care time was [35] minutes. This time is in addition to time spent performing reported procedures but includes the following: [x] Data Review and interpretation [x] Patient assessment and monitoring of vital signs [x] Documentation [x] Medication orders and management History Interval history: Patient seen and examined remains hypoxic severe shortness of breath. On high flow and NRBM. prone, Was more hypoxic overnight Hospitalist Physical - Physical exam Narrative exam: VITAL SIGNS: Reviewed. GENERAL: The patient appears normally developed, in moderate distress speaks in single sentences. On high flow vital signs as documented. HEAD: No signs of head trauma. EYES: Pupils are equal. Extraocular motions intact. EARS: Hearing grossly intact. MOUTH: Oropharynx is normal. NECK: No adenopathy, no JVD. CHEST: Chest with diminished breath sounds bilaterally. No wheezes, rales, or rhonchi. CARDIAC: Regular rate and rhythm. S1 and S2, without murmurs, gallops, or rubs. VASCULAR: No Edema. Peripheral pulses normal and equal in all extremities. ABDOMEN: Soft, non tender and non distended. No rebound or guarding, and no masses palpated. Bowel Sounds normal. MUSCULOSKELETAL: Good range of motion of all major joints. Extremities without clubbing, cyanosis or edema. NEUROLOGIC EXAM: Alert and oriented x 3 No focal sensory or strength deficits. Speech normal short sentences. Follows commands. PSYCHIATRIC: Mood calm but likely because she is trying not to exert herself SKIN: detail exam as documented in skin assessment - Constitutional Vitals: Temp Pulse Resp BP Pulse Ox 98.2 F 78 19 128/64 93 12/05/20 04:04 12/05/20 04:04 12/05/20 06:24 12/05/20 04:04 12/05/20 08:30 HEART Score - HEART Score Troponin: Troponin T < 0.010 ng/mL (0.00-0.029) 12/02/20 03:58 Results - Labs CBC & Chem 7: 12/03/20 03:48 12/05/20 05:16 Labs: Laboratory Last Values WBC 7.8 K/mm3 (4.5-11.0) 12/03/20 03:48 RBC 3.46 M/mm3 (3.65-5.03) L 12/03/20 03:48 Hgb 8.6 gm/dl (10.1-14.3) L 12/03/20 03:48 Hct 26.5 % (30.3-42.9) L 12/03/20 03:48 MCV 77 fl (79-97) L 12/03/20 03:48 MCH 25 pg (28-32) L 12/03/20 03:48 MCHC 33 % (30-34) 12/03/20 03:48 RDW 18.2 % (13.2-15.2) H 12/03/20 03:48 Plt Count 261 K/mm3 (140-440) 12/03/20 03:48 Lymph % (Auto) 6.7 % (13.4-35.0) L 12/02/20 03:58 Kerr % (Auto) 5.4 % (0.0-7.3) 12/02/20 03:58 Eos % (Auto) 0.0 % (0.0-4.3) 12/02/20 03:58 Baso % (Auto) 0.2 % (0.0-1.8) 12/02/20 03:58 Lymph # (Auto) 0.3 K/mm3 (1.2-5.4) L 12/02/20 03:58 Kerr # (Auto) 0.3 K/mm3 (0.0-0.8) 12/02/20 03:58 Eos # (Auto) 0.0 K/mm3 (0.0-0.4) 12/02/20 03:58 Baso # (Auto) 0.0 K/mm3 (0.0-0.1) 12/02/20 03:58 Add Manual Diff Complete 12/03/20 03:48 Total Counted 100 12/03/20 03:48 Seg Neutrophils % Community Development Planner 12/03/20 03:48 Seg Neuts % (Manual) 93.0 % (40.0-70.0) H 12/03/20 03:48 Band Neutrophils % 1.0 % 12/03/20 03:48 Lymphocytes % (Manual) 3.0 % (13.4-35.0) L 12/03/20 03:48 Monocytes % (Manual) 3.0 % (0.0-7.3) 12/03/20 03:48 Nucleated RBC % Not Reportable 12/03/20 03:48 Seg Neutrophils # 4.4 K/mm3 (1.8-7.7) 12/02/20 03:58 Seg Neutrophils # Man 7.3 K/mm3 (1.8-7.7) 12/03/20 03:48 Band Neutrophils # 0.1 K/mm3 12/03/20 03:48 Lymphocytes # (Manual) 0.2 K/mm3 (1.2-5.4) L 12/03/20 03:48 Abs React Lymphs (Man) 0.0 K/mm3 12/03/20 03:48 Monocytes # (Manual) 0.2 K/mm3 (0.0-0.8) 12/03/20 03:48 Eosinophils # (Manual) 0.0 K/mm3 (0.0-0.4) 12/03/20 03:48 Basophils # (Manual) 0.0 K/mm3 (0.0-0.1) 12/03/20 03:48 Metamyelocytes # 0.0 K/mm3 12/03/20 03:48 Myelocytes # 0.0 K/mm3 12/03/20 03:48 Promyelocytes # 0.0 K/mm3 12/03/20 03:48 Blast Cells # 0.0 K/mm3 12/03/20 03:48 WBC Morphology Not Reportable 12/03/20 03:48 Hypersegmented Neuts Not Reportable 12/03/20 03:48 Hyposegmented Neuts Not Reportable 12/03/20 03:48 Hypogranular Neuts Not Reportable 12/03/20 03:48 Smudge Cells Not Reportable 12/03/20 03:48 Toxic Granulation Not Reportable 12/03/20 03:48 Toxic Vacuolation Not Reportable 12/03/20 03:48 Dohle Bodies Not Reportable 12/03/20 03:48 Pelger-Huet Anomaly Not Reportable 12/03/20 03:48 Minna Rods Not Reportable 12/03/20 03:48 Platelet Estimate Consistent w auto 12/03/20 03:48 Clumped Platelets Not Reportable 12/03/20 03:48 Plt Clumps, EDTA Not Reportable 12/03/20 03:48 Large Platelets Not Reportable 12/03/20 03:48 Giant Platelets Not Reportable 12/03/20 03:48 Platelet Satelliting Not Reportable 12/03/20 03:48 Plt Morphology Comment Not Reportable 12/03/20 03:48 RBC Morphology Not Reportable 12/03/20 03:48 Dimorphic RBCs Not Reportable 12/03/20 03:48 Polychromasia Not Reportable 12/03/20 03:48 Hypochromasia 1+ 12/03/20 03:48 Poikilocytosis Not Reportable 12/03/20 03:48 Anisocytosis 1+ 12/03/20 03:48 Microcytosis Not Reportable 12/03/20 03:48 Macrocytosis Not Reportable 12/03/20 03:48 Spherocytes Not Reportable 12/03/20 03:48 Pappenheimer Bodies Not Reportable 12/03/20 03:48 Sickle Cells Not Reportable 12/03/20 03:48 Target Cells Not Reportable 12/03/20 03:48 Tear Drop Cells Not Reportable 12/03/20 03:48 Ovalocytes Not Reportable 12/03/20 03:48 Helmet Cells Not Reportable 12/03/20 03:48 [place] Bodies Not Reportable 12/03/20 03:48 [place] Rings Not Reportable 12/03/20 03:48 [place] Cells Not Reportable 12/03/20 03:48 Bite Cells Not Reportable 12/03/20 03:48 Crenated Cell Not Reportable 12/03/20 03:48 Elliptocytes Not Reportable 12/03/20 03:48 Acanthocytes (Spur) Not Reportable 12/03/20 03:48 Rouleaux Not Reportable 12/03/20 03:48 Hemoglobin C Crystals Not Reportable 12/03/20 03:48 Schistocytes Not Reportable 12/03/20 03:48 Malaria parasites Not Reportable 12/03/20 03:48 Po Bodies Not Reportable 12/03/20 03:48 Hem Pathologist Commnt No 12/03/20 03:48 PT 12.5 Sec. (12.2-14.9) 12/02/20 03:58 INR 0.88 (0.87-1.13) 12/02/20 03:58 APTT 32.1 Sec. (24.2-36.6) 12/02/20 03:58 D-Dimer 1559.33 ng/mlDDU (0-234) H 12/02/20 03:58 ABG pH 7.494 (7.320-7.450) H 12/04/20 23:12 POC ABG pCO2 35.0 mmHg (32.0-48.0) 12/04/20 23:12 POC ABG pO2 56.3 mmHg (83-108) L 12/04/20 23:12 POC ABG HCO3 26.3 12/04/20 23:12 ABG O2 Saturation 88.8 (0-100) 12/04/20 23:12 POC ABG Base Excess 3.0 12/04/20 23:12 ABG Hemoglobin 8.6 (12.0-17.5) L 12/04/20 23:12 ABG Oxyhemoglobin 88.3 (94-98) L 12/04/20 23:12 ABG Methemoglobin 0.3 (0.0-1.5) 12/04/20 23:12 ABG Sodium 131.8 mmol/L (136.0-145.0) L 12/04/20 23:12 ABG Potassium 3.8 mmol/L (3.40-4.50) 12/04/20 23:12 ABG Chloride 100.0 mmol/L (98-107) 12/04/20 23:12 ABG Glucose 205 mg/dL (65-95) H 12/04/20 23:12 Carboxyhemoglobin 0.3 (0.5-1.5) L 12/04/20 23:12 FiO2 % 100.0 12/04/20 23:12 Sodium 142 mmol/L (137-145) 12/05/20 05:16 Potassium 3.8 mmol/L (3.6-5.0) 12/05/20 05:16 Chloride 100.6 mmol/L (98-107) 12/05/20 05:16 Carbon Dioxide 27 mmol/L (22-30) 12/05/20 05:16 Anion Gap 18 mmol/L 12/05/20 05:16 BUN 19 mg/dL (7-17) H 12/05/20 05:16 Creatinine 0.7 mg/dL (0.6-1.2) 12/05/20 05:16 Estimated GFR > 60 ml/min 12/05/20 05:16 BUN/Creatinine Ratio 27 % 12/05/20 05:16 Glucose 64 mg/dL (65-100) L 12/05/20 05:16 POC Glucose 157 mg/dL (70-105) H 12/05/20 09:07 Hemoglobin A1c 9.5 % (4-6) H 12/02/20 06:15 Calcium 9.2 mg/dL (8.4-10.2) 12/05/20 05:16 Magnesium 2.40 mg/dL (1.7-2.3) H 12/02/20 03:58 Ferritin 497.6 ng/mL (10.0-200.0) H 12/02/20 03:58 Total Bilirubin 0.30 mg/dL (0.1-1.2) 12/05/20 05:16 AST 34 units/L (5-40) 12/05/20 05:16 ALT 9 units/L (7-56) 12/05/20 05:16 Alkaline Phosphatase 101 units/L (35-129) 12/05/20 05:16 Lactate Dehydrogenase 582 units/L (91-180) H 12/02/20 03:58 Troponin T < 0.010 ng/mL (0.00-0.029) 12/02/20 03:58 C-Reactive Protein 34.20 mg/dL (0.00-1.30) H 12/02/20 03:58 Total Protein 6.0 g/dL (6.3-8.2) L 12/05/20 05:16 Albumin 2.8 g/dL (3.9-5) L 12/05/20 05:16 Albumin/Globulin Ratio 0.9 % 12/05/20 05:16 Procalcitonin 1.18 ng/mL (<0.15) 12/02/20 03:58 Arterial Blood Glucose 205 mg/dL (65-95) H 12/04/20 23:12 Arterial Blood Ionized Calcium 4.7 mg/dL (4.6-5.3) 12/04/20 23:12 Coronavirus (PCR) Positive (Negative) A 12/02/20 08:15 Microbiology: Microbiology 12/02/20 13:29 Peripheral/Venous Blood Culture - Preliminary NO GROWTH AFTER 48 HOURS 12/02/20 13:29 Peripheral/Venous Blood Culture - Preliminary NO GROWTH AFTER 48 HOURS Carpenter/IV: Voiding Method External Female Catheter Active Medications - Current Medications Current Medications: Generic Name Dose Route Start Last Admin Trade Name Freq PRN Reason Stop Dose Admin Acetaminophen 650 mg 12/02/20 05:09 Acetaminophen 325 Mg Tab PO Q4H PRN Pain MILD(1-3)/Fever >100.5/LARA Albuterol 2.5 mg 12/02/20 05:09 Albuterol 2.5 Mg/3 Ml Nebu IH Q3HRT PRN Shortness Of Breath Ascorbic Acid 500 mg 12/03/20 22:00 12/05/20 09:11 Ascorbic Acid 500 Mg Tab PO 500 mg BID AZAEL Administration Cholecalciferol 5,000 unit 12/02/20 10:00 12/05/20 09:10 Cholecalciferol (Vit D3) 5,000 Unit Tab PO 5,000 unit DAILY AZAEL Administration Dexamethasone 6 mg 12/05/20 10:00 12/05/20 09:10 Dexamethasone 4 Mg/Ml Vial IV 6 mg DAILY AZAEL Administration Dextrose 50 ml 12/02/20 05:09 12/05/20 08:09 Dextrose 50% In Water (25gm) 50 Ml Syringe IV 50 ml Q30MIN PRN Administration Hypoglycemia Protocol Docusate Sodium 100 mg 12/02/20 10:00 12/05/20 09:10 Docusate Sodium 100 Mg Cap PO 100 mg BID AZAEL Administration Enoxaparin Sodium 40 mg 12/02/20 10:00 12/05/20 09:10 Enoxaparin 40 Mg/0.4 Ml Inj SUB-Q 40 mg QDAY AZAEL Administration Azithromycin 500 mg in 250 mls @ 250 mls/hr 12/03/20 08:00 12/05/20 09:18 Zithromax/Ns IV 12/06/20 08:59 250 mls/hr Q24H AZAEL Administration Ceftriaxone Sodium 1 gm in 50 mls @ 100 mls/hr 12/03/20 08:00 12/05/20 09:17 Rocephin/Ns 1 Gm/50 Ml IV 12/06/20 08:29 100 mls/hr Q24H AZAEL Administration Protocol REMDESIVIR 100 mg/ Sodium 250 mls @ 500 mls/hr 12/03/20 21:00 12/04/20 21:56 Chloride IV 12/06/20 21:29 500 mls/hr Q24HR@2100 [facility] Administration Insulin Glargine 30 units 12/05/20 22:00 Insulin Glargine 100 Units/Ml SUB-Q QHS [facility] Insulin Human Lispro 0 unit 12/02/20 07:30 12/05/20 09:11 Insulin Lispro 100 Unit/Ml SUB-Q Not Given ACHS [facility] Protocol Naloxone HCl 0.1 mg 12/02/20 05:09 Naloxone 0.4 Mg/1 Ml Inj IV Q2MIN PRN Res Rate </= 8 or 02 SAT < 92% Ondansetron HCl 4 mg 12/02/20 05:09 Ondansetron 4 Mg/2 Ml Inj IV Q6H PRN Nausea And Vomiting Oxycodone/Acetaminophen 1 tab 12/02/20 05:09 12/05/20 05:24 Oxycodone /Acetaminophen 5-325mg Tab PO 1 tab Q6H PRN Administration Pain, Moderate (4-6) Pantoprazole Sodium 40 mg 12/02/20 08:00 12/05/20 09:10 Pantoprazole 40 Mg Tab PO 40 mg BIDAC AZAEL Administration Sodium Chloride 10 ml 12/02/20 10:00 12/05/20 09:11 Sodium Chloride 0.9% 10 Ml Flush Syringe IV 10 ml BID AZAEL Administration Sodium Chloride 10 ml 12/02/20 05:09 Sodium Chloride 0.9% 10 Ml Flush Syringe IV PRN PRN LINE FLUSH Sodium Chloride 50 ml 12/02/20 21:00 12/04/20 21:56 Sodium Chloride 0.9% 50 Ml Ivpb IV 12/06/20 21:01 50 ml Q24HR@2100 AZAEL Administration Zinc Sulfate 220 mg 12/02/20 10:00 12/04/20 09:44 Zinc Sulfate 220 Mg Cap PO 220 mg QDAY AZAEL Administration Nutrition/Malnutrition Assess - Dietary Evaluation Nutrition/Malnutrition Findings: Nutrition Notes Start: 12/03/20 10:33 Freq: Status: Active Protocol: Document 12/03/20 10:33 EB (Rec: 12/03/20 10:36 EB [id number]) Nutrition Notes 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 Skin Integrity/Comment Intact Nutrition Intervention Revisit per MD consult or patient Sign Off request:
--- NOTE | 2020-12-05 12:38 | Progress Note ---
Assessment and Plan Acute hypoxemic respiratory failure COVID-19 infection Bilateral pneumonia Acute respiratory distress syndrome DM II Hypertension Elevated serum inflammatory markers to include LDH, ferritin and D-dimers Anemia - will get repeat D-Dimer and consider full anticoagulation as too unstable to go for scan - continue awake proning - watch closely on continuous telemetry - will reduce BIPAP settings and see if she can tolerate; will schedule qhs - continue to wean supplemental oxygen for target O2 sat's > 92% acutely - Aspiration precautions - continue care as below otherwise; - continue bronchodilators with pulmonary hygiene per RT - continue accuchecks with glycemic control per SSI (While critically ill target blood glucose of 140-180 mg/dL; avoid hypoglycemia) - avoid nephrotoxins, renally dose all medications - continue to avoid benzodiazepine's, reduce the possibility of delirium - completed Anti-infective's per ID rec's - prn analgesia per pain score - Maintenance of sleep-wake cycle, avoid delirium - G.I. & VTE prophylaxis - PT/OT/ROM exercises - mobility protocols for pressure ulcer prophylaxis - Monitor hemodynamics closely - continue other care per attending / other consultants COVID SPECIFIC INTERVENTIONS - Remdesivir as per ID/Pulmonary developed protocols (receiving) - continue systemic steroids for severe COVID-19 infection (Decadron) - follow repeat COVID tests results - zinc and vitamin C supplementation - Monitor inflammatory markers per facility protocol - ferritin, Ddimer, CRP - therapeutic anticoagulation per system Protocol based on d-dimer and clinical considerations (VTE Prophylaxis) - Continue contact and airborne isolation .... Re-evaluate in am & prn CONDITION: CRITICAL PROGNOSIS: GUARDED CODE STATUS: FULL CODE The high probability of a clinically significant, sudden or life-threatening deterioration of the [respiratory, cardiovascular & neurologic] system(s) required my full and direct attention, intervention and personal management. The aggregate critical care time was [32] minutes without overlap. Time includes spent on; [x] Data Review and interpretation [x] Patient assessment and monitoring of vital signs [x] Documentation [x] Medication orders and management Subjective Date of service: 12/05/20 Principal diagnosis: Ac hypoxemic resp failure; COVID-19 infection; Pneumonia; ARDS; DM II; HTN Interval history: Patient is seen today for: Acute hypoxemic respiratory failure; COVID-19 infection; Pneumonia; ARDS; DM II; HTN Seen and examined at bedside; 24hour events reviewed; nursing and respiratory care staff consulted; no adverse overnight events reported to me; resting in bed; remains with severe hypoxemia; essentially on RTC proning; denies acute chest pain; no emesis or overt aspiration; afebrile Objective Vital Signs - 12hr 12/05/20 12/05/20 12/05/20 04:04 05:24 06:24 Temperature 98.2 F Pulse Rate 78 Respiratory 18 24 19 Rate Blood Pressure 128/64 O2 Sat by Pulse 93 Oximetry 12/05/20 08:30 Temperature Pulse Rate Respiratory Rate Blood Pressure O2 Sat by Pulse 93 Oximetry Constitutional: no acute distress, other (elderly female with mildly increased respiratory effort at rest; proning) Eyes: non-icteric ENT: oropharynx moist Neck: supple, no lymphadenopathy, no JVD Effort: mildly labored Ascultation: Bilateral: rhonchi (bases) Percussion: Bilateral: not dull Cardiovascular: regular rate and rhythm Gastrointestinal: normoactive bowel sounds, soft, non-tender, non-distended Integumentary: normal Extremities: no cyanosis, no edema, pulses normal, no ischemia or petechiae Neurologic: non-focal exam, pupils equal and round, CN II-XII normal, motor strength normal and Psychiatric: mood appropriate, affect normal CBC and BMP: 12/03/20 03:48 12/05/20 05:16 ABG, PT/INR, D-dimer: ABG ABG pH 7.494 (7.320-7.450) H 12/04/20 23:12 POC ABG pCO2 35.0 mmHg (32.0-48.0) 12/04/20 23:12 POC ABG pO2 56.3 mmHg (83-108) L 12/04/20 23:12 POC ABG HCO3 26.3 12/04/20 23:12 ABG O2 Saturation 88.8 (0-100) 12/04/20 23:12 PT/INR, D-dimer PT 12.5 Sec. (12.2-14.9) 12/02/20 03:58 INR 0.88 (0.87-1.13) 12/02/20 03:58 D-Dimer 1559.33 ng/mlDDU (0-234) H 12/02/20 03:58 Abnormal lab findings: Abnormal Labs 12/02/20 12/02/2021 03:58 03:58 03:58 RBC 3.57 L Hgb 8.9 L Hct 27.2 L MCV 76 L MCH 25 L RDW 17.6 H Lymph % (Auto) 6.7 L Lymph # (Auto) 0.3 L Seg Neutrophils % 87.7 H Seg Neuts % (Manual) Lymphocytes % (Manual) Lymphocytes # (Manual) D-Dimer 1559.33 H ABG pH POC ABG pO2 ABG Hemoglobin ABG Oxyhemoglobin ABG Sodium ABG Chloride ABG Glucose Carboxyhemoglobin Sodium 130 L Chloride 90.0 L BUN 20 H Glucose 346 H POC Glucose Hemoglobin A1c Calcium Magnesium 2.40 H Ferritin AST 43 H Lactate Dehydrogenase 582 H C-Reactive Protein 34.20 H Total Protein Albumin 3.1 L Arterial Blood Glucose Coronavirus (PCR) 12/02/20 12/02/20 12/02/20 03:58 06:15 07:37 RBC Hgb Hct MCV MCH RDW Lymph % (Auto) Lymph # (Auto) Seg Neutrophils % Seg Neuts % (Manual) Lymphocytes % (Manual) Lymphocytes # (Manual) D-Dimer ABG pH POC ABG pO2 ABG Hemoglobin ABG Oxyhemoglobin ABG Sodium ABG Chloride ABG Glucose Carboxyhemoglobin Sodium Chloride BUN Glucose POC Glucose 339 H Hemoglobin A1c 9.5 H Calcium Magnesium Ferritin 497.6 H AST Lactate Dehydrogenase C-Reactive Protein Total Protein Albumin Arterial Blood Glucose Coronavirus (PCR) 12/02/20 12/02/20 12/02/20 08:15 11:52 13:29 RBC Hgb 9.7 L Hct MCV MCH RDW Lymph % (Auto) Lymph # (Auto) Seg Neutrophils % Seg Neuts % (Manual) Lymphocytes % (Manual) Lymphocytes # (Manual) D-Dimer ABG pH POC ABG pO2 ABG Hemoglobin ABG Oxyhemoglobin ABG Sodium ABG Chloride ABG Glucose Carboxyhemoglobin Sodium Chloride BUN Glucose POC Glucose 305 H Hemoglobin A1c Calcium Magnesium Ferritin AST Lactate Dehydrogenase C-Reactive Protein Total Protein Albumin Arterial Blood Glucose Coronavirus (PCR) Positive A 12/02/20 12/02/20 12/02/20 16:53 22:39 23:39 RBC Hgb Hct MCV MCH RDW Lymph % (Auto) Lymph # (Auto) Seg Neutrophils % Seg Neuts % (Manual) Lymphocytes % (Manual) Lymphocytes # (Manual) D-Dimer ABG pH POC ABG pO2 ABG Hemoglobin ABG Oxyhemoglobin ABG Sodium ABG Chloride ABG Glucose Carboxyhemoglobin Sodium 131 L Chloride 93.8 L BUN 22 H Glucose 301 H POC Glucose 281 H 290 H Hemoglobin A1c Calcium Magnesium Ferritin AST Lactate Dehydrogenase C-Reactive Protein Total Protein 6.2 L Albumin 2.8 L Arterial Blood Glucose Coronavirus (PCR) 12/03/20 12/03/20 12/03/20 03:48 03:48 08:59 RBC 3.46 L Hgb 8.6 L Hct 26.5 L MCV 77 L MCH 25 L RDW 18.2 H Lymph % (Auto) Lymph # (Auto) Seg Neutrophils % Seg Neuts % (Manual) 93.0 H Lymphocytes % (Manual) 3.0 L Lymphocytes # (Manual) 0.2 L D-Dimer ABG pH POC ABG pO2 ABG Hemoglobin ABG Oxyhemoglobin ABG Sodium ABG Chloride ABG Glucose Carboxyhemoglobin Sodium 131 L Chloride 92.5 L BUN 22 H Glucose 279 H POC Glucose 258 H Hemoglobin A1c Calcium 8.2 L Magnesium Ferritin AST Lactate Dehydrogenase C-Reactive Protein Total Protein 5.6 L Albumin 2.8 L Arterial Blood Glucose Coronavirus (PCR) 12/03/20 12/03/20 12/03/20 12:45 15:57 17:01 RBC Hgb Hct MCV MCH RDW Lymph % (Auto) Lymph # (Auto) Seg Neutrophils % Seg Neuts % (Manual) Lymphocytes % (Manual) Lymphocytes # (Manual) D-Dimer ABG pH 7.527 H POC ABG pO2 50.4 L ABG Hemoglobin ABG Oxyhemoglobin ABG Sodium 129.8 L ABG Chloride 95.0 L ABG Glucose 394 H Carboxyhemoglobin Sodium Chloride BUN Glucose POC Glucose 349 H 359 H Hemoglobin A1c Calcium Magnesium Ferritin AST Lactate Dehydrogenase C-Reactive Protein Total Protein Albumin Arterial Blood Glucose 394 H Coronavirus (PCR) 12/03/20 12/04/20 12/04/20 21:16 04:27 06:49 RBC Hgb Hct MCV MCH RDW Lymph % (Auto) Lymph # (Auto) Seg Neutrophils % Seg Neuts % (Manual) Lymphocytes % (Manual) Lymphocytes # (Manual) D-Dimer ABG pH 7.530 H POC ABG pO2 37.6 L ABG Hemoglobin 9.6 L ABG Oxyhemoglobin 72.5 L ABG Sodium 132.3 L ABG Chloride ABG Glucose 180 H Carboxyhemoglobin 0.4 L Sodium 136 L Chloride 97.3 L BUN 23 H Glucose 166 H POC Glucose 295 H Hemoglobin A1c Calcium Magnesium Ferritin AST Lactate Dehydrogenase C-Reactive Protein Total Protein 5.7 L Albumin 2.6 L Arterial Blood Glucose 180 H Coronavirus (PCR) 12/04/20 12/04/20 12/04/20 07:49 11:37 16:22 RBC Hgb Hct MCV MCH RDW Lymph % (Auto) Lymph # (Auto) Seg Neutrophils % Seg Neuts % (Manual) Lymphocytes % (Manual) Lymphocytes # (Manual) D-Dimer ABG pH POC ABG pO2 ABG Hemoglobin ABG Oxyhemoglobin ABG Sodium ABG Chloride ABG Glucose Carboxyhemoglobin Sodium Chloride BUN Glucose POC Glucose 180 H 213 H 177 H Hemoglobin A1c Calcium Magnesium Ferritin AST Lactate Dehydrogenase C-Reactive Protein Total Protein Albumin Arterial Blood Glucose Coronavirus (PCR) 12/04/20 12/04/20 12/05/20 22:21 23:12 05:16 RBC Hgb Hct MCV MCH RDW Lymph % (Auto) Lymph # (Auto) Seg Neutrophils % Seg Neuts % (Manual) Lymphocytes % (Manual) Lymphocytes # (Manual) D-Dimer ABG pH 7.494 H POC ABG pO2 56.3 L ABG Hemoglobin 8.6 L ABG Oxyhemoglobin 88.3 L ABG Sodium 131.8 L ABG Chloride ABG Glucose 205 H Carboxyhemoglobin 0.3 L Sodium Chloride BUN 19 H Glucose 64 L POC Glucose 207 H Hemoglobin A1c Calcium Magnesium Ferritin AST Lactate Dehydrogenase C-Reactive Protein Total Protein 6.0 L Albumin 2.8 L Arterial Blood Glucose 205 H Coronavirus (PCR) 12/05/20 12/05/20 12/05/20 08:01 09:07 12:31 RBC Hgb Hct MCV MCH RDW Lymph % (Auto) Lymph # (Auto) Seg Neutrophils % Seg Neuts % (Manual) Lymphocytes % (Manual) Lymphocytes # (Manual) D-Dimer ABG pH POC ABG pO2 ABG Hemoglobin ABG Oxyhemoglobin ABG Sodium ABG Chloride ABG Glucose Carboxyhemoglobin Sodium Chloride BUN Glucose POC Glucose 49 L 157 H 113 H Hemoglobin A1c Calcium Magnesium Ferritin AST Lactate Dehydrogenase C-Reactive Protein Total Protein Albumin Arterial Blood Glucose Coronavirus (PCR) Chest x-ray: pending Allied health notes reviewed: nursing
[2020-12-05] MEDS: FUROSEMIDE 40 MG/4 ML INJ IV SCH (13:13)
[2020-12-05] MEDS: ZINC SULFATE 220 MG CAP PO SCH (13:24)
[2020-12-05] MEDS: REMDESIVIR 100 MG in SODIUM CHLORIDE 0.9% 250ML 250 ML IV SCH (22:33)
[2020-12-05] MEDS: SODIUM CHLORIDE 0.9% 50 ML IVPB IV SCH (22:34)
[2020-12-06] MEDS: ENOXAPARIN 40 MG/0.4 ML INJ SUB-Q SCH (09:35)
[2020-12-06] MEDS: PANTOPRAZOLE 40 MG TAB PO SCH ×2 (09:36→17:41)
[2020-12-06] MEDS: ASCORBIC ACID 500 MG TAB PO SCH ×2 (09:36→21:35)
[2020-12-06] MEDS: dexAMETHasone 4 MG/ML VIAL IV SCH (09:36)
[2020-12-06] MEDS: DOCUSATE SODIUM 100 MG CAP PO SCH ×2 (09:36→21:35)
[2020-12-06] MEDS: CHOLECALCIFEROL (VIT D3) 5,000 UNIT TAB PO SCH (09:36)
[2020-12-06] MEDS: ZINC SULFATE 220 MG CAP PO SCH (09:36)
[2020-12-06] MEDS: FUROSEMIDE 40 MG/4 ML INJ IV SCH (09:36)
[2020-12-06] MEDS: cefTRIAXone/NS 1 GM/50 ML 1 GM/50 ML BAG IV SCH (09:37)
[2020-12-06] MEDS: AZITHROMYCIN/NS 500 MG/250 ML 500 MG/250 ML BAG IV SCH (11:14)
[2020-12-06] MEDS: INSULIN LISPRO 100 UNIT/ML SUB-Q SCH ×3 (13:12→17:31)
--- NOTE | 2020-12-06 13:19 | Progress Note ---
Assessment and Plan Acute hypoxemic respiratory failure COVID-19 infection Bilateral pneumonia Acute respiratory distress syndrome DM II Hypertension Elevated serum inflammatory markers to include LDH, ferritin and D-dimers Anemia - will get repeat D-Dimer and consider full anticoagulation as too unstable to go for scan - continue awake proning - watch closely on continuous telemetry - will reduce BIPAP settings and see if she can tolerate; will schedule qhs - continue to wean supplemental oxygen for target O2 sat's > 92% acutely - Aspiration precautions - continue care as below otherwise; - continue bronchodilators with pulmonary hygiene per RT - continue accuchecks with glycemic control per SSI (While critically ill target blood glucose of 140-180 mg/dL; avoid hypoglycemia) - avoid nephrotoxins, renally dose all medications - continue to avoid benzodiazepine's, reduce the possibility of delirium - completed Anti-infective's per ID rec's - prn analgesia per pain score - Maintenance of sleep-wake cycle, avoid delirium - G.I. & VTE prophylaxis - PT/OT/ROM exercises - mobility protocols for pressure ulcer prophylaxis - Monitor hemodynamics closely - continue other care per attending / other consultants COVID SPECIFIC INTERVENTIONS - Remdesivir as per ID/Pulmonary developed protocols (receiving) - continue systemic steroids for severe COVID-19 infection (Decadron) - follow repeat COVID tests results - zinc and vitamin C supplementation - Monitor inflammatory markers per facility protocol - ferritin, Ddimer, CRP - therapeutic anticoagulation per system Protocol based on d-dimer and clinical considerations (VTE Prophylaxis) - Continue contact and airborne isolation .... Re-evaluate in am & prn CONDITION: CRITICAL PROGNOSIS: GUARDED CODE STATUS: FULL CODE The high probability of a clinically significant, sudden or life-threatening deterioration of the [respiratory, cardiovascular & neurologic] system(s) required my full and direct attention, intervention and personal management. The aggregate critical care time was [32] minutes without overlap. Time includes spent on; [x] Data Review and interpretation [x] Patient assessment and monitoring of vital signs [x] Documentation [x] Medication orders and management Subjective Date of service: 12/06/20 Principal diagnosis: Ac hypoxemic resp failure; COVID-19 infection; Pneumonia; ARDS; DM II; HTN Interval history: Patient is seen today for: Acute hypoxemic respiratory failure; COVID-19 infection; Pneumonia; ARDS; DM II; HTN Seen and examined at bedside; 24hour events reviewed; nursing and respiratory care staff consulted; no adverse overnight events reported to me; resting in bed; remains with ARDS; too unstable for CTA; requiring almost continuous proning but clinically non labored breathing and no altered mentation; BP's good Objective Vital Signs - 12hr 12/06/20 12/06/20 03:43 13:03 Temperature 98.2 F Pulse Rate 100 H Respiratory 18 Rate Blood Pressure 150/75 O2 Sat by Pulse 70 L 88 Oximetry Constitutional: no acute distress, other (elderly female with mildly increased respiratory effort at rest; proning) Eyes: non-icteric ENT: oropharynx moist Neck: supple, no lymphadenopathy, no JVD Effort: mildly labored Ascultation: Bilateral: rhonchi (bases) Percussion: Bilateral: not dull Cardiovascular: regular rate and rhythm Gastrointestinal: normoactive bowel sounds, soft, non-tender, non-distended Integumentary: normal Extremities: no cyanosis, no edema, pulses normal, no ischemia or petechiae Neurologic: non-focal exam, pupils equal and round, CN II-XII normal, motor strength normal and Psychiatric: mood appropriate, affect normal CBC and BMP: 12/06/20 18:53 12/05/20 05:16 ABG, PT/INR, D-dimer: ABG ABG pH 7.494 (7.320-7.450) H 12/04/20 23:12 POC ABG pCO2 35.0 mmHg (32.0-48.0) 12/04/20 23:12 POC ABG pO2 56.3 mmHg (83-108) L 12/04/20 23:12 POC ABG HCO3 26.3 12/04/20 23:12 ABG O2 Saturation 88.8 (0-100) 12/04/20 23:12 PT/INR, D-dimer PT 12.5 Sec. (12.2-14.9) 12/02/20 03:58 INR 0.88 (0.87-1.13) 12/02/20 03:58 D-Dimer 1559.33 ng/mlDDU (0-234) H 12/02/20 03:58 Abnormal lab findings: Abnormal Labs 12/02/20 12/02/20 12/02/20 03:58 03:58 03:58 RBC 3.57 L Hgb 8.9 L Hct 27.2 L MCV 76 L MCH 25 L RDW 17.6 H Lymph % (Auto) 6.7 L Lymph # (Auto) 0.3 L Seg Neutrophils % 87.7 H Seg Neuts % (Manual) Lymphocytes % (Manual) Lymphocytes # (Manual) D-Dimer 1559.33 H ABG pH POC ABG pO2 ABG Hemoglobin ABG Oxyhemoglobin ABG Sodium ABG Chloride ABG Glucose Carboxyhemoglobin Sodium 130 L Chloride 90.0 L BUN 20 H Glucose 346 H POC Glucose Hemoglobin A1c Calcium Magnesium 2.40 H Ferritin AST 43 H Lactate Dehydrogenase 582 H C-Reactive Protein 34.20 H Total Protein Albumin 3.1 L Arterial Blood Glucose Coronavirus (PCR) 12/02/20 12/02/20 12/02/20 03:58 06:15 07:37 RBC Hgb Hct MCV MCH RDW Lymph % (Auto) Lymph # (Auto) Seg Neutrophils % Seg Neuts % (Manual) Lymphocytes % (Manual) Lymphocytes # (Manual) D-Dimer ABG pH POC ABG pO2 ABG Hemoglobin ABG Oxyhemoglobin ABG Sodium ABG Chloride ABG Glucose Carboxyhemoglobin Sodium Chloride BUN Glucose POC Glucose 339 H Hemoglobin A1c 9.5 H Calcium Magnesium Ferritin 497.6 H AST Lactate Dehydrogenase C-Reactive Protein Total Protein Albumin Arterial Blood Glucose Coronavirus (PCR) 12/02/20 12/02/20 12/02/20 08:15 11:52 13:29 RBC Hgb 9.7 L Hct MCV MCH RDW Lymph % (Auto) Lymph # (Auto) Seg Neutrophils % Seg Neuts % (Manual) Lymphocytes % (Manual) Lymphocytes # (Manual) D-Dimer ABG pH POC ABG pO2 ABG Hemoglobin ABG Oxyhemoglobin ABG Sodium ABG Chloride ABG Glucose Carboxyhemoglobin Sodium Chloride BUN Glucose POC Glucose 305 H Hemoglobin A1c Calcium Magnesium Ferritin AST Lactate Dehydrogenase C-Reactive Protein Total Protein Albumin Arterial Blood Glucose Coronavirus (PCR) Positive A 12/02/20 12/02/20 12/02/20 16:53 22:39 23:39 RBC Hgb Hct MCV MCH RDW Lymph % (Auto) Lymph # (Auto) Seg Neutrophils % Seg Neuts % (Manual) Lymphocytes % (Manual) Lymphocytes # (Manual) D-Dimer ABG pH POC ABG pO2 ABG Hemoglobin ABG Oxyhemoglobin ABG Sodium ABG Chloride ABG Glucose Carboxyhemoglobin Sodium 131 L Chloride 93.8 L BUN 22 H Glucose 301 H POC Glucose 281 H 290 H Hemoglobin A1c Calcium Magnesium Ferritin AST Lactate Dehydrogenase C-Reactive Protein Total Protein 6.2 L Albumin 2.8 L Arterial Blood Glucose Coronavirus (PCR) 12/03/20 12/03/20 12/03/20 03:48 03:48 08:59 RBC 3.46 L Hgb 8.6 L Hct 26.5 L MCV 77 L MCH 25 L RDW 18.2 H Lymph % (Auto) Lymph # (Auto) Seg Neutrophils % Seg Neuts % (Manual) 93.0 H Lymphocytes % (Manual) 3.0 L Lymphocytes # (Manual) 0.2 L D-Dimer ABG pH POC ABG pO2 ABG Hemoglobin ABG Oxyhemoglobin ABG Sodium ABG Chloride ABG Glucose Carboxyhemoglobin Sodium 131 L Chloride 92.5 L BUN 22 H Glucose 279 H POC Glucose 258 H Hemoglobin A1c Calcium 8.2 L Magnesium Ferritin AST Lactate Dehydrogenase C-Reactive Protein Total Protein 5.6 L Albumin 2.8 L Arterial Blood Glucose Coronavirus (PCR) 12/03/20 12/03/20 12/03/20 12:45 15:57 17:01 RBC Hgb Hct MCV MCH RDW Lymph % (Auto) Lymph # (Auto) Seg Neutrophils % Seg Neuts % (Manual) Lymphocytes % (Manual) Lymphocytes # (Manual) D-Dimer ABG pH 7.527 H POC ABG pO2 50.4 L ABG Hemoglobin ABG Oxyhemoglobin ABG Sodium 129.8 L ABG Chloride 95.0 L ABG Glucose 394 H Carboxyhemoglobin Sodium Chloride BUN Glucose POC Glucose 349 H 359 H Hemoglobin A1c Calcium Magnesium Ferritin AST Lactate Dehydrogenase C-Reactive Protein Total Protein Albumin Arterial Blood Glucose 394 H Coronavirus (PCR) 12/03/20 12/04/20 12/04/20 21:16 04:27 06:49 RBC Hgb Hct MCV MCH RDW Lymph % (Auto) Lymph # (Auto) Seg Neutrophils % Seg Neuts % (Manual) Lymphocytes % (Manual) Lymphocytes # (Manual) D-Dimer ABG pH 7.530 H POC ABG pO2 37.6 L ABG Hemoglobin 9.6 L ABG Oxyhemoglobin 72.5 L ABG Sodium 132.3 L ABG Chloride ABG Glucose 180 H Carboxyhemoglobin 0.4 L Sodium 136 L Chloride 97.3 L BUN 23 H Glucose 166 H POC Glucose 295 H Hemoglobin A1c Calcium Magnesium Ferritin AST Lactate Dehydrogenase C-Reactive Protein Total Protein 5.7 L Albumin 2.6 L Arterial Blood Glucose 180 H Coronavirus (PCR) 12/04/20 12/04/20 12/04/20 07:49 11:37 16:22 RBC Hgb Hct MCV MCH RDW Lymph % (Auto) Lymph # (Auto) Seg Neutrophils % Seg Neuts % (Manual) Lymphocytes % (Manual) Lymphocytes # (Manual) D-Dimer ABG pH POC ABG pO2 ABG Hemoglobin ABG Oxyhemoglobin ABG Sodium ABG Chloride ABG Glucose Carboxyhemoglobin Sodium Chloride BUN Glucose POC Glucose 180 H 213 H 177 H Hemoglobin A1c Calcium Magnesium Ferritin AST Lactate Dehydrogenase C-Reactive Protein Total Protein Albumin Arterial Blood Glucose Coronavirus (PCR) 12/04/20 12/04/20 12/05/20 22:21 23:12 05:16 RBC Hgb Hct MCV MCH RDW Lymph % (Auto) Lymph # (Auto) Seg Neutrophils % Seg Neuts % (Manual) Lymphocytes % (Manual) Lymphocytes # (Manual) D-Dimer ABG pH 7.494 H POC ABG pO2 56.3 L ABG Hemoglobin 8.6 L ABG Oxyhemoglobin 88.3 L ABG Sodium 131.8 L ABG Chloride ABG Glucose 205 H Carboxyhemoglobin 0.3 L Sodium Chloride BUN 19 H Glucose 64 L POC Glucose 207 H Hemoglobin A1c Calcium Magnesium Ferritin AST Lactate Dehydrogenase C-Reactive Protein Total Protein 6.0 L Albumin 2.8 L Arterial Blood Glucose 205 H Coronavirus (PCR) 12/05/20 12/05/20 12/05/20 08:01 09:07 12:31 RBC Hgb Hct MCV MCH RDW Lymph % (Auto) Lymph # (Auto) Seg Neutrophils % Seg Neuts % (Manual) Lymphocytes % (Manual) Lymphocytes # (Manual) D-Dimer ABG pH POC ABG pO2 ABG Hemoglobin ABG Oxyhemoglobin ABG Sodium ABG Chloride ABG Glucose Carboxyhemoglobin Sodium Chloride BUN Glucose POC Glucose 49 L 157 H 113 H Hemoglobin A1c Calcium Magnesium Ferritin AST Lactate Dehydrogenase C-Reactive Protein Total Protein Albumin Arterial Blood Glucose Coronavirus (PCR) 12/05/20 12/06/20 12/06/20 16:57 07:51 12:07 RBC Hgb Hct MCV MCH RDW Lymph % (Auto) Lymph # (Auto) Seg Neutrophils % Seg Neuts % (Manual) Lymphocytes % (Manual) Lymphocytes # (Manual) D-Dimer ABG pH POC ABG pO2 ABG Hemoglobin ABG Oxyhemoglobin ABG Sodium ABG Chloride ABG Glucose Carboxyhemoglobin Sodium Chloride BUN Glucose POC Glucose 223 H 110 H 229 H Hemoglobin A1c Calcium Magnesium Ferritin AST Lactate Dehydrogenase C-Reactive Protein Total Protein Albumin Arterial Blood Glucose Coronavirus (PCR) Chest x-ray: pending Allied health notes reviewed: nursing
[2020-12-06] MEDS ORDERED: HEPARIN 10,000 UNITS/10 ML VIAL IV PRN (19:00)
[2020-12-06 19:09] LABS: Hematocrit 30.6 % (30.3-42.9); Hemoglobin 9.6 gm/dl (10.1-14.3)
[2020-12-06 19:18] LABS: INR 1.37 (0.87-1.13)
[2020-12-06 19:19] LABS: Partial Thromboplastin Time 33.1 Sec. (24.2-36.6)
[2020-12-06] MEDS: ACETAMINOPHEN 325 MG TAB PO PRN (21:12)
[2020-12-06] MEDS: HEPARIN/ 0.45% NACL DRIP 25,000 UNIT/500 ML BAG IV SCH (21:12)
[2020-12-07] MEDS: INSULIN LISPRO 100 UNIT/ML SUB-Q SCH ×5 (00:15→21:34)
[2020-12-07] MEDS: INSULIN GLARGINE 100 UNITS/ML SUB-Q SCH ×2 (00:16→21:13)
[2020-12-07] MEDS: REMDESIVIR 100 MG in SODIUM CHLORIDE 0.9% 250ML 250 ML IV SCH (00:16)
[2020-12-07] MEDS: SODIUM CHLORIDE 0.9% 50 ML IVPB IV SCH (00:50)
[2020-12-07 08:20] LABS: Calcium 8.4 mg/dL (8.4-10.2)
--- NOTE | 2020-12-07 10:05 | Progress Note ---
Assessment and Plan Assessment and plan: 65-year-old -Citizen Of [place] female with history of hypertension, diabetes, and GI bleed who presents [facility] ED with complaints of shortness of breath, loss of taste and smell, malaise, fatigue and weakness. Of note this is a [facility] patient and [facility] has agreed to the admission. Patient presented to her local [facility] clinic yesterday evening with complaints of Covid symptoms x6 days. CT angio chest done at [facility] revealed extensive irregular bilateral groundglass opacities, and patient was referred to ED for further evaluation and treatment. Admits to known exposure, states that her friend whom she was in close contact with for several days recently tested positive for Covid. Endorses mild generalized headache, chest tightening, diarrhea, body aches, loss of smell and taste, and shortness of breath. Denies fever, chills, abdominal pain, rash, hemoptysis, hematochezia, melena, history of restrictive/obstructive lung disease, or medication noncompliant COVID-19 test is positive patient is high flow in progress 40liters/100%, will obtain pulmonary consultation. Will adjust glargine for better insulin coverage. Continue remdesivir and Solu-Medrol. Will monitor progression. Encourage prone positioning. We will give a dose of Lasix today. Would like to go to full dose anticoagulation but patient's anemia is precluding And also patient with noted positive stool and remote history of GI bleed in 2016 if no worsening renal function with the Lasix given today will consider CTA in the morning if patient is not improving 12/04: Patient seen and examined, considering worsening hypoxia and stable renal function will order CTA to rule out pulmonary embolism. Will give one-time full dose anticoagulation and continue the prophylactic dose as being careful due to history of GI bleed. And noted anemia. 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 For now continue steroid therapy will give additional dose of Lasix today. Blood sugar is better controlled. Continue steroids and remdesivir. Patient also Getting Actmera also. Patient was able to prone today. 12/05: Patient s/p Actemra. Continue supportive care she is prone. She continues on steroids and remdesivir. We will give additional Lasix today and monitor renal function in a.m. She remains on high flow and nonrebreather mask/sign of the severity of her hypoxia 12/07: Patient remains on High flow, desaturating despite being on 100% highflow and NRBM, encourage to go back on BiPAP, she protested but now willing with improvement back to 89%. Patient is now on heparin drip, will obtain Chest xray. prongnosis -guarded COVID-19 pneumonia -Admits to known exposure -Presented at outside facility ([facility]) with Covid symptom complaints, CT angio chest bilateral ground glass opacities, consistent with Covid -Covid inflammatory markers elevated -PCR pending -On zinc and vitamin D - started on Decadron -ID consulted Pneumonia -Likely due to COVID-19 -CXR shows bilateral probable Covid pneumonia -Cultures pending -Started on IV ABX -Monitor CBC Acute hypoxic respiratory failure -No Baseline home oxygen requirements -Currently on supplemental -Monitor saturations -Continue supplemental oxygen wean as tolerated -Albuterol Anemia -Guaiac positive stool, remote history of GI bleed (2015) -Trend H&H -Hemoglobin on admission 8.9 -Continue to monitor hemoglobin -Transfuse as needed for hgb<7 DM2 -Uncontrolled, with hyperglycemia -POC BG monitoring -Schedule Lantus and SSI coverage prn -HgbA1C pending Hyponatremia GI and DVT PPX -On protonix and lovenox VTE prophylaxis?: Chemical, Mechanical The high probability of a clinically significant, sudden or life threatening deterioration of the [pulmonary] system(s) required my full and direct attention, intervention and personal management. The aggregate critical care time was [35] minutes. This time is in addition to time spent performing reported procedures but includes the following: [x] Data Review and interpretation [x] Patient assessment and monitoring of vital signs [x] Documentation [x] Medication orders and management History Interval history: Patient seen and examined remains hypoxic severe shortness of breath. Patient was on BiPAP this am due to worsening hypoxia on Highflow. She wanted a break dropped down to 70s, she refused to go back on BiPAP but after encouraging she agreed to go back. Hospitalist Physical - Physical exam Narrative exam: VITAL SIGNS: Reviewed. GENERAL: The patient appears normally developed, in moderate distress speaks in single sentences. On high flow vital signs as documented. HEAD: No signs of head trauma. EYES: Pupils are equal. Extraocular motions intact. EARS: Hearing grossly intact. MOUTH: Oropharynx is normal. NECK: No adenopathy, no JVD. CHEST: Chest with diminished breath sounds bilaterally. No wheezes, rales, or rhonchi. CARDIAC: Regular rate and rhythm. S1 and S2, without murmurs, gallops, or rubs. VASCULAR: No Edema. Peripheral pulses normal and equal in all extremities. ABDOMEN: Soft, non tender and non distended. No rebound or guarding, and no masses palpated. Bowel Sounds normal. MUSCULOSKELETAL: Good range of motion of all major joints. Extremities without clubbing, cyanosis or edema. NEUROLOGIC EXAM: Alert and oriented x 3 No focal sensory or strength deficits. Speech normal short sentences. Follows commands. PSYCHIATRIC: Mood calm but likely because she is trying not to exert herself SKIN: detail exam as documented in skin assessment - Constitutional Vitals: Temp Pulse Resp BP Pulse Ox 98.1 F 91 H 18 150/73 68 L 12/07/20 05:11 12/07/20 07:15 12/07/20 07:15 12/07/20 05:11 12/07/20 08:35 HEART Score - HEART Score Troponin: Troponin T < 0.010 ng/mL (0.00-0.029) 12/02/20 03:58 Results - Labs CBC & Chem 7: 12/06/20 18:53 12/07/20 07:03 Labs: Laboratory Last Values WBC 7.8 K/mm3 (4.5-11.0) 12/03/20 03:48 RBC 3.46 M/mm3 (3.65-5.03) L 12/03/20 03:48 Hgb 9.6 gm/dl (10.1-14.3) L 12/06/20 18:53 Hct 30.6 % (30.3-42.9) 12/06/20 18:53 MCV 77 fl (79-97) L 12/03/20 03:48 MCH 25 pg (28-32) L 12/03/20 03:48 MCHC 33 % (30-34) 12/03/20 03:48 RDW 18.2 % (13.2-15.2) H 12/03/20 03:48 Plt Count 168 K/mm3 (140-440) 12/06/20 18:53 Lymph % (Auto) 6.7 % (13.4-35.0) L 12/02/20 03:58 Nye % (Auto) 5.4 % (0.0-7.3) 12/02/20 03:58 Eos % (Auto) 0.0 % (0.0-4.3) 12/02/20 03:58 Baso % (Auto) 0.2 % (0.0-1.8) 12/02/20 03:58 Lymph # (Auto) 0.3 K/mm3 (1.2-5.4) L 12/02/20 03:58 Nye # (Auto) 0.3 K/mm3 (0.0-0.8) 12/02/20 03:58 Eos # (Auto) 0.0 K/mm3 (0.0-0.4) 12/02/20 03:58 Baso # (Auto) 0.0 K/mm3 (0.0-0.1) 12/02/20 03:58 Add Manual Diff Complete 12/03/20 03:48 Total Counted 100 12/03/20 03:48 Seg Neutrophils % Steel Spar Operator 12/03/20 03:48 Seg Neuts % (Manual) 93.0 % (40.0-70.0) H 12/03/20 03:48 Band Neutrophils % 1.0 % 12/03/20 03:48 Lymphocytes % (Manual) 3.0 % (13.4-35.0) L 12/03/20 03:48 Monocytes % (Manual) 3.0 % (0.0-7.3) 12/03/20 03:48 Nucleated RBC % Not Reportable 12/03/20 03:48 Seg Neutrophils # 4.4 K/mm3 (1.8-7.7) 12/02/20 03:58 Seg Neutrophils # Man 7.3 K/mm3 (1.8-7.7) 12/03/20 03:48 Band Neutrophils # 0.1 K/mm3 12/03/20 03:48 Lymphocytes # (Manual) 0.2 K/mm3 (1.2-5.4) L 12/03/20 03:48 Abs React Lymphs (Man) 0.0 K/mm3 12/03/20 03:48 Monocytes # (Manual) 0.2 K/mm3 (0.0-0.8) 12/03/20 03:48 Eosinophils # (Manual) 0.0 K/mm3 (0.0-0.4) 12/03/20 03:48 Basophils # (Manual) 0.0 K/mm3 (0.0-0.1) 12/03/20 03:48 Metamyelocytes # 0.0 K/mm3 12/03/20 03:48 Myelocytes # 0.0 K/mm3 12/03/20 03:48 Promyelocytes # 0.0 K/mm3 12/03/20 03:48 Blast Cells # 0.0 K/mm3 12/03/20 03:48 WBC Morphology Not Reportable 12/03/20 03:48 Hypersegmented Neuts Not Reportable 12/03/20 03:48 Hyposegmented Neuts Not Reportable 12/03/20 03:48 Hypogranular Neuts Not Reportable 12/03/20 03:48 Smudge Cells Not Reportable 12/03/20 03:48 Toxic Granulation Not Reportable 12/03/20 03:48 Toxic Vacuolation Not Reportable 12/03/20 03:48 Dohle Bodies Not Reportable 12/03/20 03:48 Pelger-Huet Anomaly Not Reportable 12/03/20 03:48 Minna Rods Not Reportable 12/03/20 03:48 Platelet Estimate Consistent w auto 12/03/20 03:48 Clumped Platelets Not Reportable 12/03/20 03:48 Plt Clumps, EDTA Not Reportable 12/03/20 03:48 Large Platelets Not Reportable 12/03/20 03:48 Giant Platelets Not Reportable 12/03/20 03:48 Platelet Satelliting Not Reportable 12/03/20 03:48 Plt Morphology Comment Not Reportable 12/03/20 03:48 RBC Morphology Not Reportable 12/03/20 03:48 Dimorphic RBCs Not Reportable 12/03/20 03:48 Polychromasia Not Reportable 12/03/20 03:48 Hypochromasia 1+ 12/03/20 03:48 Poikilocytosis Not Reportable 12/03/20 03:48 Anisocytosis 1+ 12/03/20 03:48 Microcytosis Not Reportable 12/03/20 03:48 Macrocytosis Not Reportable 12/03/20 03:48 Spherocytes Not Reportable 12/03/20 03:48 Pappenheimer Bodies Not Reportable 12/03/20 03:48 Sickle Cells Not Reportable 12/03/20 03:48 Target Cells Not Reportable 12/03/20 03:48 Tear Drop Cells Not Reportable 12/03/20 03:48 Ovalocytes Not Reportable 12/03/20 03:48 Helmet Cells Not Reportable 12/03/20 03:48 [place] Bodies Not Reportable 12/03/20 03:48 [place] Rings Not Reportable 12/03/20 03:48 Goyo Cells Not Reportable 12/03/20 03:48 Bite Cells Not Reportable 12/03/20 03:48 Crenated Cell Not Reportable 12/03/20 03:48 Elliptocytes Not Reportable 12/03/20 03:48 Acanthocytes (Spur) Not Reportable 12/03/20 03:48 Rouleaux Not Reportable 12/03/20 03:48 Hemoglobin C Crystals Not Reportable 12/03/20 03:48 Schistocytes Not Reportable 12/03/20 03:48 Malaria parasites Not Reportable 12/03/20 03:48 Po Bodies Not Reportable 12/03/20 03:48 Hem Pathologist Commnt No 12/03/20 03:48 PT 17.4 Sec. (12.2-14.9) H 12/06/20 18:53 INR 1.37 (0.87-1.13) H 12/06/20 18:53 APTT 33.1 Sec. (24.2-36.6) 12/06/20 18:53 D-Dimer > 82655 ng/mlDDU (0-234) H 12/06/20 14:56 Heparin Anti-Xa Level 0.85 U.I./ml (0.3-0.7) H 12/07/20 07:03 ABG pH 7.494 (7.320-7.450) H 12/04/20 23:12 POC ABG pCO2 35.0 mmHg (32.0-48.0) 12/04/20 23:12 POC ABG pO2 56.3 mmHg (83-108) L 12/04/20 23:12 POC ABG HCO3 26.3 12/04/20 23:12 ABG O2 Saturation 88.8 (0-100) 12/04/20 23:12 POC ABG Base Excess 3.0 12/04/20 23:12 ABG Hemoglobin 8.6 (12.0-17.5) L 12/04/20 23:12 ABG Oxyhemoglobin 88.3 (94-98) L 12/04/20 23:12 ABG Methemoglobin 0.3 (0.0-1.5) 12/04/20 23:12 ABG Sodium 131.8 mmol/L (136.0-145.0) L 12/04/20 23:12 ABG Potassium 3.8 mmol/L (3.40-4.50) 12/04/20 23:12 ABG Chloride 100.0 mmol/L (98-107) 12/04/20 23:12 ABG Glucose 205 mg/dL (65-95) H 12/04/20 23:12 Carboxyhemoglobin 0.3 (0.5-1.5) L 12/04/20 23:12 FiO2 % 100.0 12/04/20 23:12 Sodium 141 mmol/L (137-145) 12/07/20 07:03 Potassium 4.0 mmol/L (3.6-5.0) 12/07/20 07:03 Chloride 101.3 mmol/L (98-107) 12/07/20 07:03 Carbon Dioxide 28 mmol/L (22-30) 12/07/20 07:03 Anion Gap 16 mmol/L 12/07/20 07:03 BUN 23 mg/dL (7-17) H 12/07/20 07:03 Creatinine 1.1 mg/dL (0.6-1.2) D 12/07/20 07:03 Estimated GFR 60 ml/min 12/07/20 07:03 BUN/Creatinine Ratio 21 % 12/07/20 07:03 Glucose 62 mg/dL (65-100) L 12/07/20 07:03 POC Glucose 83 mg/dL (70-105) 12/07/20 08:04 Hemoglobin A1c 9.5 % (4-6) H 12/02/20 06:15 Calcium 8.4 mg/dL (8.4-10.2) 12/07/20 07:03 Magnesium 2.40 mg/dL (1.7-2.3) H 12/02/20 03:58 Ferritin 497.6 ng/mL (10.0-200.0) H 12/02/20 03:58 Total Bilirubin 0.30 mg/dL (0.1-1.2) 12/05/20 05:16 AST 34 units/L (5-40) 12/05/20 05:16 ALT 9 units/L (7-56) 12/05/20 05:16 Alkaline Phosphatase 101 units/L (35-129) 12/05/20 05:16 Lactate Dehydrogenase 582 units/L (91-180) H 12/02/20 03:58 Troponin T < 0.010 ng/mL (0.00-0.029) 12/02/20 03:58 C-Reactive Protein 34.20 mg/dL (0.00-1.30) H 12/02/20 03:58 Total Protein 6.0 g/dL (6.3-8.2) L 12/05/20 05:16 Albumin 2.8 g/dL (3.9-5) L 12/05/20 05:16 Albumin/Globulin Ratio 0.9 % 12/05/20 05:16 Procalcitonin 1.18 ng/mL (<0.15) 12/02/20 03:58 Arterial Blood Glucose 205 mg/dL (65-95) H 12/04/20 23:12 Arterial Blood Ionized Calcium 4.7 mg/dL (4.6-5.3) 12/04/20 23:12 Coronavirus (PCR) Positive (Negative) A 12/02/20 08:15 Microbiology: Microbiology 12/02/20 13:29 Peripheral/Venous Blood Culture - Preliminary NO GROWTH AFTER 4 DAYS 12/02/20 13:29 Peripheral/Venous Blood Culture - Preliminary NO GROWTH AFTER 4 DAYS Carpenter/IV: Voiding Method Bedpan Active Medications - Current Medications Current Medications: Generic Name Dose Route Start Last Admin Trade Name Freq PRN Reason Stop Dose Admin Acetaminophen 650 mg 12/02/20 05:09 12/06/20 21:12 Acetaminophen 325 Mg Tab PO 650 mg Q4H PRN Administration Pain MILD(1-3)/Fever >100.5/LARA Albuterol 2.5 mg 12/02/20 05:09 Albuterol 2.5 Mg/3 Ml Nebu IH Q3HRT PRN Shortness Of Breath Ascorbic Acid 500 mg 12/03/20 22:00 12/06/20 21:35 Ascorbic Acid 500 Mg Tab PO 500 mg BID AZAEL Administration Cholecalciferol 5,000 unit 12/02/20 10:00 12/06/20 09:36 Cholecalciferol (Vit D3) 5,000 Unit Tab PO 5,000 unit DAILY AZAEL Administration Dexamethasone 6 mg 12/05/20 10:00 12/06/20 09:36 Dexamethasone 4 Mg/Ml Vial IV 12/11/20 10:01 6 mg DAILY AZAEL Administration Dextrose 50 ml 12/02/20 05:09 12/05/20 08:09 Dextrose 50% In Water (25gm) 50 Ml Syringe IV 50 ml Q30MIN PRN Administration Hypoglycemia Protocol Docusate Sodium 100 mg 12/02/20 10:00 12/06/20 21:35 Docusate Sodium 100 Mg Cap PO 100 mg BID AZAEL Administration Furosemide 40 mg 12/05/20 14:00 12/06/20 09:36 Furosemide 40 Mg/4 Ml Inj IV 12/07/20 10:01 40 mg QDAY AZAEL Administration Heparin Sodium (Porcine) 2,600 unit 12/06/20 19:00 Heparin 10,000 Units/10 Ml Vial 40 unit/kg (2600 unit) IV Q6H PRN Anti-Xa Assay < 0.1 units/ml Heparin Sodium/Sodium Chloride 25,000 unit in 500 mls @ 18 mls/hr 12/06/20 18:30 12/06/20 21:12 Heparin/ 0.45% Nacl-25,000 Unit/500 Ml IV 900 units/hr TITR AZAEL 18 mls/hr Administration Protocol 900 UNITS/HR Insulin Glargine 30 units 12/05/20 22:00 12/07/20 00:16 Insulin Glargine 100 Units/Ml SUB-Q 30 units QHS AZAEL Administration Insulin Human Lispro 0 unit 12/02/20 07:30 12/07/20 00:15 Insulin Lispro 100 Unit/Ml SUB-Q 3 unit ACHS AZAEL Administration Protocol Naloxone HCl 0.1 mg 12/02/20 05:09 Naloxone 0.4 Mg/1 Ml Inj IV Q2MIN PRN Res Rate </= 8 or 02 SAT < 92% Ondansetron HCl 4 mg 12/02/20 05:09 Ondansetron 4 Mg/2 Ml Inj IV Q6H PRN Nausea And Vomiting Oxycodone/Acetaminophen 1 tab 12/02/20 05:09 12/05/20 05:24 Oxycodone /Acetaminophen 5-325mg Tab PO 1 tab Q6H PRN Administration Pain, Moderate (4-6) Pantoprazole Sodium 40 mg 12/02/20 08:00 12/06/20 17:41 Pantoprazole 40 Mg Tab PO 40 mg BIDAC AZAEL Administration Sodium Chloride 10 ml 12/02/20 10:00 12/07/20 00:16 Sodium Chloride 0.9% 10 Ml Flush Syringe IV 10 ml BID AZAEL Administration Sodium Chloride 10 ml 12/02/20 05:09 Sodium Chloride 0.9% 10 Ml Flush Syringe IV PRN PRN LINE FLUSH Zinc Sulfate 220 mg 12/02/20 10:00 12/06/20 09:36 Zinc Sulfate 220 Mg Cap PO 220 mg QDAY AZAEL Administration Nutrition/Malnutrition Assess - Dietary Evaluation Nutrition/Malnutrition Findings: Nutrition Notes Start: 12/03/20 10:33 Freq: Status: Active Protocol: Document 12/03/20 10:33 EB (Rec: 12/03/20 10:36 EB [id number]) Nutrition Notes Need for Assessment generated from: director of billing Initial or Follow up Brief Note Current Diagnosis Respiratory Failure Other Pertinent Diagnosis Covid +, Hyperglycemia Current Diet Consistent CHO Labs/Tests Na 131 Glu 279 Pertinent Medications reviewed Height 4 ft 11.84 in Weight 64.864 kg [place] Body Weight (kg) 45.09 BMI 28.0 Weight Status Overweight Subjective/Other Information RD screened for skin risk, however, Braulio: 20. Skin Integrity/Comment Intact Nutrition Intervention Revisit per MD consult or patient Sign Off request:
--- NOTE | 2020-12-07 10:50 | XRay Report ---
CHEST 1 VIEW INDICATION: worsening hypoxia. COMPARISON: 12/02/2020 FINDINGS: Support devices: None. Heart: Within normal limits. Lungs/Pleura: There is slightly better inspiration. Diffuse groundglass lung opacities are again seen . Focal areas of consolidation in the right lung and left lower lobe have resolved. No pleural effusi on or pneumothorax. Additional findings: None. IMPRESSION: Mild improvement in the bilateral lung infiltrates Signer Name: Travis Monroe Jr, MD Signed: 12/07/2020 10:46 AM Workstation Name: [id number]
[2020-12-07] MEDS: DOCUSATE SODIUM 100 MG CAP PO SCH ×2 (11:40→21:13)
[2020-12-07] MEDS: dexAMETHasone 4 MG/ML VIAL IV SCH (11:59)
[2020-12-07] MEDS: CHOLECALCIFEROL (VIT D3) 5,000 UNIT TAB PO SCH (11:59)
[2020-12-07] MEDS: FUROSEMIDE 40 MG/4 ML INJ IV SCH (11:59)
[2020-12-07] MEDS: ZINC SULFATE 220 MG CAP PO SCH (12:00)
[2020-12-07] MEDS: ASCORBIC ACID 500 MG TAB PO SCH ×2 (12:00→21:13)
[2020-12-07] MEDS: PANTOPRAZOLE 40 MG TAB PO SCH (12:00)
--- NOTE | 2020-12-07 13:59 | Progress Note ---
Assessment and Plan Cultures: SARS CoV2 PCR: Positive 12/02/2020 blood culture: no growth A/P: 65-year-old female with diabetes, hypertension admitted with: #Bilateral pneumonia: Secondary to COVID-19. Severe disease. #Acute hypoxic respiratory failure: Secondary to above. On high flow nasal cannula. #Diabetes mellitus, uncontrolled: HbA1c 9.5 Recs: -IV/PO Dexamethasone 6 mg daily x 10 days -Status post 5 days of remdesivir, Actemra -completed abx -prophylactic anticoagulation based on d-dimer per hospital protocol -poor prognosis ID will sign off. Please call with questions or changes in status. Carl Goldstein MD, FACP [facility] ([facility]) O: [phone] F: [phone] Subjective Date of service: 12/07/20 Principal diagnosis: Ac hypoxemic resp failure; COVID-19 infection; Pneumonia; ARDS; DM II; HTN Interval history: No fever, remains hypoxic requiring high flow nasal cannula. Objective - Exam Narrative Exam: Physical Exam (reviewed in chart to minimize risk of transmission) Constitutional: deferred Head, Ears, Nose: deferred Eyes: deferred Neck: deferred Oral: deferred Cardiovascular: deferred Respiratory: deferred GI: deferred Musculoskeletal: deferred Skin: deferred Hem/Lymphatic: deferred Psych: deferred Neurological: deferred - Constitutional Vitals: Vital Signs Temp Pulse Resp BP Pulse Ox 98.1 F 91 H 18 150/73 68 L 12/07/20 05:11 12/07/20 07:15 12/07/20 07:15 12/07/20 05:11 12/07/20 08:35 Temperature -Last 24 Hours Temperature 98.1 F Temperature 98.6 F Temperature 97.5 F - Labs CBC & Chem 7: 12/06/20 18:53 12/07/20 07:03 Labs: Abnormal lab results 12/06/20 12/06/20 12/06/20 Range/Units 14:56 16:00 18:53 Hgb 9.6 L (10.1-14.3) gm/dl PT (12.2-14.9) Sec. INR (0.87-1.13) D-Dimer > 20514 H (0-234) ng/mlDDU Heparin Anti-Xa Level (0.3-0.7) U.I./ml BUN (7-17) mg/dL Glucose (65-100) mg/dL POC Glucose 235 H (70-105) mg/dL 12/06/20 12/06/20 12/07/20 Range/Units 18:53 23:15 07:03 Hgb (10.1-14.3) gm/dl PT 17.4 H (12.2-14.9) Sec. INR 1.37 H (0.87-1.13) D-Dimer (0-234) ng/mlDDU Heparin Anti-Xa Level (0.3-0.7) U.I./ml BUN 23 H (7-17) mg/dL Glucose 62 L (65-100) mg/dL POC Glucose 170 H (70-105) mg/dL 12/07/20 12/07/20 Range/Units 07:03 07:28 Hgb (10.1-14.3) gm/dl PT (12.2-14.9) Sec. INR (0.87-1.13) D-Dimer (0-234) ng/mlDDU Heparin Anti-Xa Level 0.85 H (0.3-0.7) U.I./ml BUN (7-17) mg/dL Glucose (65-100) mg/dL POC Glucose 54 L (70-105) mg/dL
--- NOTE | 2020-12-07 14:23 | Progress Note ---
Assessment and Plan 65-year-old -[place] female with history of hypertension, diabetes, and GI bleed who presents [facility] ED with complaints of shortness of breath, loss of taste and smell, malaise, fatigue and weakness. Of note this is a [facility] patient and [facility] has agreed to the admission. Patient presented to her local [facility] yesterday evening with complaints of Covid symptoms x6 days. CT angio chest done at [facility] revealed extensive irregular bilateral groundglass opacities, and patient was referred to ED for further evaluation and treatment. Admits to known exposure, states that her friend whom she was in close contact with for several days recently tested positive for Covid. Endorses mild generalized headache, chest tightening, diarrhea, body aches, loss of smell and taste, and shortness of breath. Patient positive for Ferreira virus PCR. Denies fever, chills, abdominal pain, rash, hemoptysis, hematochezia, melena, history of restrictive/obstructive lung disease, or medication noncompliant Denies smoking, alcohol abuse, prescription drug abuse, IV drug use Patient awake. Weak. Patient resting on BIPAP20/10, Rate 14,FIO2 100%. O2 saturation running 90%. denies chest pain or shortness of breath at rest. Has some cough. Patient afebrile. No leukocytosis. Blood pressure 142/75, Pulse 105. Chest xray done 12/07/20 reported Mild improvement in the bilateral lung infiltra eleanor Patients D dimer greater than 10,000. Patient is on Dexamethasone, I/V Heparin, Protonix and Proventil. Patient finished course of REMDESIVIR and Ceftriaxone and zithromax. I spent critical care time of 42 minutes on this patient, review the chart, examine the patient, review chest xray, Lab results, talking to the nursing staff, respiratory therapy and work out plan of treatment in this critically ill COVID patient with pneumonia and acute hypoxic respiratory failure. - Patient Problems (1) Acute respiratory failure with hypoxia Current Visit: Yes Status: Acute Plan to address problem: Patient is on BIPAP 20/10, rate 14, FIO2 100%. Continue dexamethasone. Continue I/V heparin. Continue protonix. Proventil 2 puffs po qid PRN for shortness of breath. (2) COVID-19 virus infection Current Visit: Yes Status: Acute Plan to address problem: Patient finished course of REMDESIVIR. Patient is on dexamethasone and I/V Heparin. (3) Pneumonia due to COVID-19 virus Current Visit: Yes Status: Acute Plan to address problem: Patient finished short course of zithromax and ceftriaxone. (4) Hyperglycemia Current Visit: Yes Status: Acute Plan to address problem: Management as per primary care. (5) Anosmia Current Visit: Yes Status: Acute Plan to address problem: Most likely secondary to COVID infection. Subjective Date of service: 12/07/20 Principal diagnosis: Ac hypoxemic resp failure; COVID-19 infection; Pneumonia; ARDS; DM II; HTN Interval history: 65-year-old -[place] female with history of hypertension, diabetes, and GI bleed who presents [facility] ED with complaints of shortness of breath, loss of taste and smell, malaise, fatigue and weakness. Of note this is a [facility] and [facility] has agreed to the admission. Patient presented to her local [facility] clinic yesterday evening with complaints of Covid symptoms x6 days. CT angio chest done at [facility] revealed extensive irregular bilateral groundglass opacities, and patient was referred to ED for further evaluation and treatment. Admits to known exposure, states that her friend whom she was in close contact with for several days recently tested positive for Covid. Endorses mild generalized headache, chest tightening, diarrhea, body aches, loss of smell and taste, and shortness of breath. Patient positive for Ferreira virus PCR. Denies fever, chills, abdominal pain, rash, hemoptysis, hematochezia, melena, hi story of restrictive/obstructive lung disease, or medication noncompliant Denies smoking, alcohol abuse, prescription drug abuse, IV drug use Patient awake. Weak. Patient resting on BIPAP20/10, Rate 14,FIO2 100%. O2 saturation running 90%. denies chest pain or shortness of breath at rest. Has some cough. Patient afebrile. No leukocytosis. Blood pressure 142/75, Pulse 105. Chest xray done 12/07/20 reported Mild improvement in the bilateral lung infiltrates Patients D dimer greater than 10,000. Patient is on Dexamethasone, I/V Heparin, Protonix and Proventil. Patient finished course of REMDESIVIR and Ceftriaxone and zithromax. Objective Vital Signs - 12hr 12/07/20 12/07/20 12/07/20 05:11 07:15 08:35 Temperature 98.1 F Pulse Rate 83 91 H Respiratory 20 18 Rate Blood Pressure 150/73 O2 Sat by Pulse 92 93 68 L Oximetry Constitutional: no acute distress, alert, other (elderly female with mildly increased respiratory effort at rest; p Patient weak.) Eyes: non-icteric ENT: oropharynx moist Neck: supple, no lymphadenopathy, no JVD Effort: mildly labored Ascultation: Bilateral: rhonchi (bases) Percussion: Bilateral: not dull Cardiovascular: regular rate and rhythm Gastrointestinal: normoactive bowel sounds, soft, non-tender, non-distended Integumentary: normal Extremities: no cyanosis, no edema, pulses normal, no ischemia or petechiae Neurologic: non-focal exam, pupils equal and round, CN II-XII normal Psychiatric: depressed CBC and BMP: 12/06/20 18:53 12/07/20 07:03 ABG, PT/INR, D-dimer: ABG ABG pH 7.494 (7.320-7.450) H 12/04/20 23:12 POC ABG pCO2 35.0 mmHg (32.0-48.0) 12/04/20 23:12 POC ABG pO2 56.3 mmHg (83-108) L 12/04/20 23:12 POC ABG HCO3 26.3 12/04/20 23:12 ABG O2 Saturation 88.8 (0-100) 12/04/20 23:12 PT/INR, D-dimer PT 17.4 Sec. (12.2-14.9) H 12/06/20 18:53 INR 1.37 (0.87-1.13) H 12/06/20 18:53 D-Dimer > 32565 ng/mlDDU (0-234) H 12/06/20 14:56 Abnormal lab findings: Abnormal Labs 12/02/20 12/02/20 12/02/20 03:58 03:58 03:58 RBC 3.57 L Hgb 8.9 L Hct 27.2 L MCV 76 L MCH 25 L RDW 17.6 H Lymph % (Auto) 6.7 L Lymph # (Auto) 0.3 L Seg Neutrophils % 87.7 H Seg Neuts % (Manual) Lymphocytes % (Manual) Lymphocytes # (Manual) PT INR D-Dimer 1559.33 H Heparin Anti-Xa Level ABG pH POC ABG pO2 ABG Hemoglobin ABG Oxyhemoglobin ABG Sodium ABG Chloride ABG Glucose Carboxyhemoglobin Sodium 130 L Chloride 90.0 L BUN 20 H Glucose 346 H POC Glucose Hemoglobin A1c Calcium Magnesium 2.40 H Ferritin AST 43 H Lactate Dehydrogenase 582 H C-Reactive Protein 34.20 H Total Protein Albumin 3.1 L Arterial Blood Glucose Coronavirus (PCR) 12/02/20 12/02/20 12/02/20 03:58 06:15 07:37 RBC Hgb Hct MCV MCH RDW Lymph % (Auto) Lymph # (Auto) Seg Neutrophils % Seg Neuts % (Manual) Lymphocytes % (Manual) Lymphocytes # (Manual) PT INR D-Dimer Heparin Anti-Xa Level ABG pH POC ABG pO2 ABG Hemoglobin ABG Oxyhemoglobin ABG Sodium ABG Chloride ABG Glucose Carboxyhemoglobin Sodium Chloride BUN Glucose POC Glucose 339 H Hemoglobin A1c 9.5 H Calcium Magnesium Ferritin 497.6 H AST Lactate Dehydrogenase C-Reactive Protein Total Protein Albumin Arterial Blood Glucose Coronavirus (PCR) 12/02/20 12/02/20 12/02/20 08:15 11:52 13:29 RBC Hgb 9.7 L Hct MCV MCH RDW Lymph % (Auto) Lymph # (Auto) Seg Neutrophils % Seg Neuts % (Manual) Lymphocytes % (Manual) Lymphocytes # (Manual) PT INR D-Dimer Heparin Anti-Xa Level ABG pH POC ABG pO2 ABG Hemoglobin ABG Oxyhemoglobin ABG Sodium ABG Chloride ABG Glucose Carboxyhemoglobin Sodium Chloride BUN Glucose POC Glucose 305 H Hemoglobin A1c Calcium Magnesium Ferritin AST Lactate Dehydrogenase C-Reactive Protein Total Protein Albumin Arterial Blood Glucose Coronavirus (PCR) Positive A 12/02/20 12/02/20 12/02/20 16:53 22:39 23:39 RBC Hgb Hct MCV MCH RDW Lymph % (Auto) Lymph # (Auto) Seg Neutrophils % Seg Neuts % (Manual) Lymphocytes % (Manual) Lymphocytes # (Manual) PT INR D-Dimer Heparin Anti-Xa Level ABG pH POC ABG pO2 ABG Hemoglobin ABG Oxyhemoglobin ABG Sodium ABG Chloride ABG Glucose Carboxyhemoglobin Sodium 131 L Chloride 93.8 L BUN 22 H Glucose 301 H POC Glucose 281 H 290 H Hemoglobin A1c Calcium Magnesium Ferritin AST Lactate Dehydrogenase C-Reactive Protein Total Protein 6.2 L Albumin 2.8 L Arterial Blood Glucose Coronavirus (PCR) 12/03/20 12/03/20 12/03/20 03:48 03:48 08:59 RBC 3.46 L Hgb 8.6 L Hct 26.5 L MCV 77 L MCH 25 L RDW 18.2 H Lymph % (Auto) Lymph # (Auto) Seg Neutrophils % Seg Neuts % (Manual) 93.0 H Lymphocytes % (Manual) 3.0 L Lymphocytes # (Manual) 0.2 L PT INR D-Dimer Heparin Anti-Xa Level ABG pH POC ABG pO2 ABG Hemoglobin ABG Oxyhemoglobin ABG Sodium ABG Chloride ABG Glucose Carboxyhemoglobin Sodium 131 L Chloride 92.5 L BUN 22 H Glucose 279 H POC Glucose 258 H Hemoglobin A1c Calcium 8.2 L Magnesium Ferritin AST Lactate Dehydrogenase C-Reactive Protein Total Protein 5.6 L Albumin 2.8 L Arterial Blood Glucose Coronavirus (PCR) 12/03/20 12/03/20 12/03/20 12:45 15:57 17:01 RBC Hgb Hct MCV MCH RDW Lymph % (Auto) Lymph # (Auto) Seg Neutrophils % Seg Neuts % (Manual) Lymphocytes % (Manual) Lymphocytes # (Manual) PT INR D-Dimer Heparin Anti-Xa Level ABG pH 7.527 H POC ABG pO2 50.4 L ABG Hemoglobin ABG Oxyhemoglobin ABG Sodium 129.8 L ABG Chloride 95.0 L ABG Glucose 394 H Carboxyhemoglobin Sodium Chloride BUN Glucose POC Glucose 349 H 359 H Hemoglobin A1c Calcium Magnesium Ferritin AST Lactate Dehydrogenase C-Reactive Protein Total Protein Albumin Arterial Blood Glucose 394 H Coronavirus (PCR) 12/03/20 12/04/20 12/04/20 21:16 04:27 06:49 RBC Hgb Hct MCV MCH RDW Lymph % (Auto) Lymph # (Auto) Seg Neutrophils % Seg Neuts % (Manual) Lymphocytes % (Manual) Lymphocytes # (Manual) PT INR D-Dimer Heparin Anti-Xa Level ABG pH 7.530 H POC ABG pO2 37.6 L ABG Hemoglobin 9.6 L ABG Oxyhemoglobin 72.5 L ABG Sodium 132.3 L ABG Chloride ABG Glucose 180 H Carboxyhemoglobin 0.4 L Sodium 136 L Chloride 97.3 L BUN 23 H Glucose 166 H POC Glucose 295 H Hemoglobin A1c Calcium Magnesium Ferritin AST Lactate Dehydrogenase C-Reactive Protein Total Protein 5.7 L Albumin 2.6 L Arterial Blood Glucose 180 H Coronavirus (PCR) 12/04/20 12/04/20 12/04/20 07:49 11:37 16:22 RBC Hgb Hct MCV MCH RDW Lymph % (Auto) Lymph # (Auto) Seg Neutrophils % Seg Neuts % (Manual) Lymphocytes % (Manual) Lymphocytes # (Manual) PT INR D-Dimer Heparin Anti-Xa Level ABG pH POC ABG pO2 ABG Hemoglobin ABG Oxyhemoglobin ABG Sodium ABG Chloride ABG Glucose Carboxyhemoglobin Sodium Chloride BUN Glucose POC Glucose 180 H 213 H 177 H Hemoglobin A1c Calcium Magnesium Ferritin AST Lactate Dehydrogenase C-Reactive Protein Total Protein Albumin Arterial Blood Glucose Coronavirus (PCR) 12/04/20 12/04/20 12/05/20 22:21 23:12 05:16 RBC Hgb Hct MCV MCH RDW Lymph % (Auto) Lymph # (Auto) Seg Neutrophils % Seg Neuts % (Manual) Lymphocytes % (Manual) Lymphocytes # (Manual) PT INR D-Dimer Heparin Anti-Xa Level ABG pH 7.494 H POC ABG pO2 56.3 L ABG Hemoglobin 8.6 L ABG Oxyhemoglobin 88.3 L ABG Sodium 131.8 L ABG Chloride ABG Glucose 205 H Carboxyhemoglobin 0.3 L Sodium Chloride BUN 19 H Glucose 64 L POC Glucose 207 H Hemoglobin A1c Calcium Magnesium Ferritin AST Lactate Dehydrogenase C-Reactive Protein Total Protein 6.0 L Albumin 2.8 L Arterial Blood Glucose 205 H Coronavirus (PCR) 12/05/20 12/05/20 12/05/20 08:01 09:07 12:31 RBC Hgb Hct MCV MCH RDW Lymph % (Auto) Lymph # (Auto) Seg Neutrophils % Seg Neuts % (Manual) Lymphocytes % (Manual) Lymphocytes # (Manual) PT INR D-Dimer Heparin Anti-Xa Level ABG pH POC ABG pO2 ABG Hemoglobin ABG Oxyhemoglobin ABG Sodium ABG Chloride ABG Glucose Carboxyhemoglobin Sodium Chloride BUN Glucose POC Glucose 49 L 157 H 113 H Hemoglobin A1c Calcium Magnesium Ferritin AST Lactate Dehydrogenase C-Reactive Protein Total Protein Albumin Arterial Blood Glucose Coronavirus (PCR) 12/05/20 12/06/20 12/06/20 16:57 07:51 12:07 RBC Hgb Hct MCV MCH RDW Lymph % (Auto) Lymph # (Auto) Seg Neutrophils % Seg Neuts % (Manual) Lymphocytes % (Manual) Lymphocytes # (Manual) PT INR D-Dimer Heparin Anti-Xa Level ABG pH POC ABG pO2 ABG Hemoglobin ABG Oxyhemoglobin ABG Sodium ABG Chloride ABG Glucose Carboxyhemoglobin Sodium Chloride BUN Glucose POC Glucose 223 H 110 H 229 H Hemoglobin A1c Calcium Magnesium Ferritin AST Lactate Dehydrogenase C-Reactive Protein Total Protein Albumin Arterial Blood Glucose Coronavirus (PCR) 12/06/20 12/06/20 12/06/20 14:56 16:00 18:53 RBC Hgb 9.6 L Hct MCV MCH RDW Lymph % (Auto) Lymph # (Auto) Seg Neutrophils % Seg Neuts % (Manual) Lymphocytes % (Manual) Lymphocytes # (Manual) PT INR D-Dimer > 49076 H Heparin Anti-Xa Level ABG pH POC ABG pO2 ABG Hemoglobin ABG Oxyhemoglobin ABG Sodium ABG Chloride ABG Glucose Carboxyhemoglobin Sodium Chloride BUN Glucose POC Glucose 235 H Hemoglobin A1c Calcium Magnesium Ferritin AST Lactate Dehydrogenase C-Reactive Protein Total Protein Albumin Arterial Blood Glucose Coronavirus (PCR) 12/06/20 12/06/20 12/07/20 18:53 23:15 07:03 RBC Hgb Hct MCV MCH RDW Lymph % (Auto) Lymph # (Auto) Seg Neutrophils % Seg Neuts % (Manual) Lymphocytes % (Manual) Lymphocytes # (Manual) PT 17.4 H INR 1.37 H D-Dimer Heparin Anti-Xa Level ABG pH POC ABG pO2 ABG Hemoglobin ABG Oxyhemoglobin ABG Sodium ABG Chloride ABG Glucose Carboxyhemoglobin Sodium Chloride BUN 23 H Glucose 62 L POC Glucose 170 H Hemoglobin A1c Calcium Magnesium Ferritin AST Lactate Dehydrogenase C-Reactive Protein Total Protein Albumin Arterial Blood Glucose Coronavirus (PCR) 12/07/20 12/07/20 07:03 07:28 RBC Hgb Hct MCV MCH RDW Lymph % (Auto) Lymph # (Auto) Seg Neutrophils % Seg Neuts % (Manual) Lymphocytes % (Manual) Lymphocytes # (Manual) PT INR D-Dimer Heparin Anti-Xa Level 0.85 H ABG pH POC ABG pO2 ABG Hemoglobin ABG Oxyhemoglobin ABG Sodium ABG Chloride ABG Glucose Carboxyhemoglobin Sodium Chloride BUN Glucose POC Glucose 54 L Hemoglobin A1c Calcium Magnesium Ferritin AST Lactate Dehydrogenase C-Reactive Protein Total Protein Albumin Arterial Blood Glucose Coronavirus (PCR) Chest x-ray: report reviewed, image reviewed Additional Studies: CHEST 1 VIEW 12/07/20 INDICATION: worsening hypoxia. COMPARISON: 12/02/2020 FINDINGS: Support devices: None. Heart: Within normal limits. Lungs/Pleura: There is slightly better inspiration. Diffuse groundglass lung opacities are again seen. Focal areas of consolidation in the right lung and left lower lobe have resolved. No pleural effusion or pneumothorax. Additional findings: None. IMPRESSION: Mild improvement in the bilateral lung infiltrates Allied health notes reviewed: nursing
[2020-12-07] MEDS: HEPARIN/ 0.45% NACL DRIP 25,000 UNIT/500 ML BAG IV SCH (14:32)
[2020-12-08 04:40] LABS: Hematocrit 33.9 % (30.3-42.9); Hemoglobin 10.5 gm/dl (10.1-14.3)
[2020-12-08] MEDS: HEPARIN/ 0.45% NACL DRIP 25,000 UNIT/500 ML BAG IV SCH (08:00)
--- NOTE | 2020-12-08 08:17 | Progress Note ---
Assessment and Plan Assessment and plan: 65-year-old -Surinamese female with history of hypertension, diabetes, and GI bleed who presents [facility] ED with complaints of shortness of breath, loss of taste and smell, malaise, fatigue and weakness. Of note this is a [place] patient and [place] has agreed to the admission. Patient presented to her local [place] clinic yesterday evening with complaints of Covid symptoms x6 days. CT angio chest done at [place] revealed extensive irregular bilateral groundglass opacities, and patient was referred to ED for further evaluation and treatment. Admits to known exposure, states that her friend whom she was in close contact with for several days recently tested positive for Covid. Endorses mild generalized headache, chest tightening, diarrhea, body aches, loss of smell and taste, and shortness of breath. Denies fever, chills, abdominal pain, rash, hemoptysis, hematochezia, melena, history of restrictive/obstructive lung disease, or medication noncompliant COVID-19 test is positive patient is high flow in progress 40liters/100%, will obtain pulmonary consultation. Will adjust glargine for better insulin coverage. Continue remdesivir and Solu-Medrol. Will monitor progression. Encourage prone positioning. We will give a dose of Lasix today. Would like to go to full dose anticoagulation but patient's anemia is precluding And also patient with noted positive stool and remote history of GI bleed in 2016 if no worsening renal function with the Lasix given today will consider CTA in the morning if patient is not improving 12/04: Patient seen and examined, considering worsening hypoxia and stable renal function will order CTA to rule out pulmonary embolism. Will give one-time full dose anticoagulation and continue the prophylactic dose as being careful due to history of GI bleed. And noted anemia. I discussed with the pump house operator patient will transfer to [facility]. For now continue steroid therapy will give additional dose of Lasix today. Blood sugar is better controlled. Continue steroids and remdesivir. Patient also Getting Actmera also. Patient was able to prone today. 12/05: Patient s/p Actemra. Continue supportive care she is prone. She continues on steroids and remdesivir. We will give additional Lasix today and monitor renal function in a.m. She remains on high flow and nonrebreather mask/sign of the severity of her hypoxia 12/07: Patient remains on High flow, desaturating despite being on 100% highflow and NRBM, encourage to go back on BiPAP, she protested but now willing with improvement back to 89%. Patient is now on heparin drip, will obtain Chest xray. prongnosis -guarded 12/08: Patient still with hypoxic respiratory failure, worsening symptoms, EKG done concerning for inferior wall NH, STAT Troponin still pending. Discussed with the pulmonary doctor and also with the clinical nurse occupational medicine. Patient due to worsening symptoms is unable to go to the cathlab as she is not stable due to significant hypoxic. The patient again denies any chest pain, BUT WONDER IF this is secondary to the ongoing Heparin drip. Will start on full dose Plavix, Low dose ASA, BB if tolerating. Transfer to the ICU. Patient is s.p Remdesivir and Actmera continue Steroids and Heparin drip. Plan discussed with the patient in detail Noted with Hypoglycemia, will adjust insulin Need to monitor Nutritional status Very guarded prognosis COVID-19 pneumonia -Admits to known exposure -Presented at outside facility ([place]) with Covid symptom complaints, CT angio chest bilateral ground glass opacities, consistent with Covid -Covid inflammatory markers elevated -PCR pending -On zinc and vitamin D - started on Decadron -ID consulted Pneumonia -Likely due to COVID-19 -CXR shows bilateral probable Covid pneumonia -Cultures pending -Started on IV ABX -Monitor CBC Acute hypoxic respiratory failure -No Baseline home oxygen requirements -Currently on supplemental -Monitor saturations -Continue supplemental oxygen wean as tolerated -Albuterol Anemia -Guaiac positive stool, remote history of GI bleed (2016) -Trend H&H -Hemoglobin on admission 8.9 -Continue to monitor hemoglobin -Transfuse as needed for hgb<7 DM2 -Uncontrolled, with hyperglycemia -POC BG monitoring -Schedule Lantus and SSI coverage prn -HgbA1C pending Hyponatremia GI and DVT PPX -On protonix and lovenox VTE prophylaxis?: Chemical, Mechanical The high probability of a clinically significant, sudden or life threatening deterioration of the [pulmonary] system(s) required my full and direct attention, intervention and personal management. The aggregate critical care time was [35] minutes. This time is in addition to time spent performing reported procedures but includes the following: [x] Data Review and interpretation [x] Patient assessment and monitoring of vital signs [x] Documentation [x] Medication orders and management History Interval history: Patient seen and examined remains hypoxic severe shortness of breath. Patient was on BiPAP this am due to worsening hypoxia AND NOW on BIPAP, as patient at any time we remove from BIPAP desats. Was notified by the Telemonitoring team, that the patient was having ST elevation, Patient denies any chest pain Hospitalist Physical - Physical exam Narrative exam: VITAL SIGNS: Reviewed. GENERAL: The patient appears normally developed, in moderate distress speaks in single sentences. BIPAP. vital signs as documented. HEAD: No signs of head trauma. EYES: Pupils are equal. Extraocular motions intact. EARS: Hearing grossly intact. MOUTH: Oropharynx is normal. NECK: No adenopathy, no JVD. CHEST: Chest with diminished breath sounds bilaterally. No wheezes, rales, or rhonchi. CARDIAC: Regular rate and rhythm. S1 and S2, without murmurs, gallops, or rubs. VASCULAR: No Edema. Peripheral pulses normal and equal in all extremities. ABDOMEN: Soft, non tender and non distended. No rebound or guarding, and no masses palpated. Bowel Sounds normal. MUSCULOSKELETAL: Good range of motion of all major joints. Extremities without clubbing, cyanosis or edema. NEUROLOGIC EXAM: Alert and oriented x 3 No focal sensory or strength deficits. Speech normal short sentences. Follows commands. PSYCHIATRIC: Mood calm but likely because she is trying not to exert herself SKIN: detail exam as documented in skin assessment - Constitutional Vitals: Temp Pulse Resp BP Pulse Ox 98.0 F 96 H 18 111/53 82 L 12/08/20 03:57 12/08/20 03:57 12/08/20 03:57 12/08/20 03:57 12/08/20 03:57 HEART Score - HEART Score Troponin: Troponin T < 0.010 ng/mL (0.00-0.029) 12/02/20 03:58 Results - Labs CBC & Chem 7: 12/08/20 04:09 12/07/20 07:03 Labs: Laboratory Last Values WBC 7.8 K/mm3 (4.5-11.0) 12/03/20 03:48 RBC 3.46 M/mm3 (3.65-5.03) L 12/03/20 03:48 Hgb 10.5 gm/dl (10.1-14.3) 12/08/20 04:09 Hct 33.9 % (30.3-42.9) 12/08/20 04:09 MCV 77 fl (79-97) L 12/03/20 03:48 MCH 25 pg (28-32) L 12/03/20 03:48 MCHC 33 % (30-34) 12/03/20 03:48 RDW 18.2 % (13.2-15.2) H 12/03/20 03:48 Plt Count 187 K/mm3 (140-440) 12/08/20 04:09 Lymph % (Auto) 6.7 % (13.4-35.0) L 12/02/20 03:58 [place] % (Auto) 5.4 % (0.0-7.3) 12/02/20 03:58 Eos % (Auto) 0.0 % (0.0-4.3) 12/02/20 03:58 Baso % (Auto) 0.2 % (0.0-1.8) 12/02/20 03:58 Lymph # (Auto) 0.3 K/mm3 (1.2-5.4) L 12/02/20 03:58 [place] # (Auto) 0.3 K/mm3 (0.0-0.8) 12/02/20 03:58 Eos # (Auto) 0.0 K/mm3 (0.0-0.4) 12/02/20 03:58 Baso # (Auto) 0.0 K/mm3 (0.0-0.1) 12/02/20 03:58 Add Manual Diff Complete 12/03/20 03:48 Total Counted 100 12/03/20 03:48 Seg Neutrophils % Care Transport Nurse 12/03/20 03:48 Seg Neuts % (Manual) 93.0 % (40.0-70.0) H 12/03/20 03:48 Band Neutrophils % 1.0 % 12/03/20 03:48 Lymphocytes % (Manual) 3.0 % (13.4-35.0) L 12/03/20 03:48 Monocytes % (Manual) 3.0 % (0.0-7.3) 12/03/20 03:48 Nucleated RBC % Not Reportable 12/03/20 03:48 Seg Neutrophils # 4.4 K/mm3 (1.8-7.7) 12/02/20 03:58 Seg Neutrophils # Man 7.3 K/mm3 (1.8-7.7) 12/03/20 03:48 Band Neutrophils # 0.1 K/mm3 12/03/20 03:48 Lymphocytes # (Manual) 0.2 K/mm3 (1.2-5.4) L 12/03/20 03:48 Abs React Lymphs (Man) 0.0 K/mm3 12/03/20 03:48 Monocytes # (Manual) 0.2 K/mm3 (0.0-0.8) 12/03/20 03:48 Eosinophils # (Manual) 0.0 K/mm3 (0.0-0.4) 12/03/20 03:48 Basophils # (Manual) 0.0 K/mm3 (0.0-0.1) 12/03/20 03:48 Metamyelocytes # 0.0 K/mm3 12/03/20 03:48 Myelocytes # 0.0 K/mm3 12/03/20 03:48 Promyelocytes # 0.0 K/mm3 12/03/20 03:48 Blast Cells # 0.0 K/mm3 12/03/20 03:48 WBC Morphology Not Reportable 12/03/20 03:48 Hypersegmented Neuts Not Reportable 12/03/20 03:48 Hyposegmented Neuts Not Reportable 12/03/20 03:48 Hypogranular Neuts Not Reportable 12/03/20 03:48 Smudge Cells Not Reportable 12/03/20 03:48 Toxic Granulation Not Reportable 12/03/20 03:48 Toxic Vacuolation Not Reportable 12/03/20 03:48 Dohle Bodies Not Reportable 12/03/20 03:48 Pelger-Huet Anomaly Not Reportable 12/03/20 03:48 Minna Rods Not Reportable 12/03/20 03:48 Platelet Estimate Consistent w auto 12/03/20 03:48 Clumped Platelets Not Reportable 12/03/20 03:48 Plt Clumps, EDTA Not Reportable 12/03/20 03:48 Large Platelets Not Reportable 12/03/20 03:48 Giant Platelets Not Reportable 12/03/20 03:48 Platelet Satelliting Not Reportable 12/03/20 03:48 Plt Morphology Comment Not Reportable 12/03/20 03:48 RBC Morphology Not Reportable 12/03/20 03:48 Dimorphic RBCs Not Reportable 12/03/20 03:48 Polychromasia Not Reportable 12/03/20 03:48 Hypochromasia 1+ 12/03/20 03:48 Poikilocytosis Not Reportable 12/03/20 03:48 Anisocytosis 1+ 12/03/20 03:48 Microcytosis Not Reportable 12/03/20 03:48 Macrocytosis Not Reportable 12/03/20 03:48 Spherocytes Not Reportable 12/03/20 03:48 Pappenheimer Bodies Not Reportable 12/03/20 03:48 Sickle Cells Not Reportable 12/03/20 03:48 Target Cells Not Reportable 12/03/20 03:48 Tear Drop Cells Not Reportable 12/03/20 03:48 Ovalocytes Not Reportable 12/03/20 03:48 Helmet Cells Not Reportable 12/03/20 03:48 Lopes-Schoenchen Bodies Not Reportable 12/03/20 03:48 [place] Rings Not Reportable 12/03/20 03:48 [place] Cells Not Reportable 12/03/20 03:48 Bite Cells Not Reportable 12/03/20 03:48 Crenated Cell Not Reportable 12/03/20 03:48 Elliptocytes Not Reportable 12/03/20 03:48 Acanthocytes (Spur) Not Reportable 12/03/20 03:48 Rouleaux Not Reportable 12/03/20 03:48 Hemoglobin C Crystals Not Reportable 12/03/20 03:48 Schistocytes Not Reportable 12/03/20 03:48 Malaria parasites Not Reportable 12/03/20 03:48 Po Bodies Not Reportable 12/03/20 03:48 Hem Pathologist Commnt No 12/03/20 03:48 PT 17.4 Sec. (12.2-14.9) H 12/06/20 18:53 INR 1.37 (0.87-1.13) H 12/06/20 18:53 APTT 33.1 Sec. (24.2-36.6) 12/06/20 18:53 D-Dimer > 68725 ng/mlDDU (0-234) H 12/06/20 14:56 Heparin Anti-Xa Level 0.36 U.I./ml (0.3-0.7) 12/08/20 04:09 ABG pH 7.494 (7.320-7.450) H 12/04/20 23:12 POC ABG pCO2 35.0 mmHg (32.0-48.0) 12/04/20 23:12 POC ABG pO2 56.3 mmHg (83-108) L 12/04/20 23:12 POC ABG HCO3 26.3 12/04/20 23:12 ABG O2 Saturation 88.8 (0-100) 12/04/20 23:12 POC ABG Base Excess 3.0 12/04/20 23:12 ABG Hemoglobin 8.6 (12.0-17.5) L 12/04/20 23:12 ABG Oxyhemoglobin 88.3 (94-98) L 12/04/20 23:12 ABG Methemoglobin 0.3 (0.0-1.5) 12/04/20 23:12 ABG Sodium 131.8 mmol/L (136.0-145.0) L 12/04/20 23:12 ABG Potassium 3.8 mmol/L (3.40-4.50) 12/04/20 23:12 ABG Chloride 100.0 mmol/L (98-107) 12/04/20 23:12 ABG Glucose 205 mg/dL (65-95) H 12/04/20 23:12 Carboxyhemoglobin 0.3 (0.5-1.5) L 12/04/20 23:12 FiO2 % 100.0 12/04/20 23:12 Sodium 141 mmol/L (137-145) 12/07/20 07:03 Potassium 4.0 mmol/L (3.6-5.0) 12/07/20 07:03 Chloride 101.3 mmol/L (98-107) 12/07/20 07:03 Carbon Dioxide 28 mmol/L (22-30) 12/07/20 07:03 Anion Gap 16 mmol/L 12/07/20 07:03 BUN 23 mg/dL (7-17) H 12/07/20 07:03 Creatinine 1.1 mg/dL (0.6-1.2) D 08/23/21 07:03 Estimated GFR 60 ml/min 12/07/20 07:03 BUN/Creatinine Ratio 21 % 12/07/20 07:03 Glucose 62 mg/dL (65-100) L 12/07/20 07:03 POC Glucose 165 mg/dL (70-105) H 12/07/20 21:26 Hemoglobin A1c 9.5 % (4-6) H 12/02/20 06:15 Calcium 8.4 mg/dL (8.4-10.2) 12/07/20 07:03 Magnesium 2.40 mg/dL (1.7-2.3) H 12/02/20 03:58 Ferritin 497.6 ng/mL (10.0-200.0) H 12/02/20 03:58 Total Bilirubin 0.30 mg/dL (0.1-1.2) 12/05/20 05:16 AST 34 units/L (5-40) 12/05/20 05:16 ALT 9 units/L (7-56) 12/05/20 05:16 Alkaline Phosphatase 101 units/L (35-129) 12/05/20 05:16 Lactate Dehydrogenase 582 units/L (91-180) H 12/02/20 03:58 Troponin T < 0.010 ng/mL (0.00-0.029) 12/02/20 03:58 C-Reactive Protein 34.20 mg/dL (0.00-1.30) H 12/02/20 03:58 Total Protein 6.0 g/dL (6.3-8.2) L 12/05/20 05:16 Albumin 2.8 g/dL (3.9-5) L 12/05/20 05:16 Albumin/Globulin Ratio 0.9 % 12/05/20 05:16 Procalcitonin 1.18 ng/mL (<0.15) 12/02/20 03:58 Arterial Blood Glucose 205 mg/dL (65-95) H 12/04/20 23:12 Arterial Blood Ionized Calcium 4.7 mg/dL (4.6-5.3) 12/04/20 23:12 Coronavirus (PCR) Positive (Negative) A 12/02/20 08:15 Microbiology: Microbiology 12/02/20 13:29 Peripheral/Venous Blood Culture - Final NO GROWTH AFTER 5 DAYS 12/02/20 13:29 Peripheral/Venous Blood Culture - Final NO GROWTH AFTER 5 DAYS Carpenter/IV: Voiding Method External Female Catheter Active Medications - Current Medications Current Medications: Generic Name Dose Route Start Last Admin Trade Name Freq PRN Reason Stop Dose Admin Acetaminophen 650 mg 12/02/20 05:09 12/06/20 21:12 Acetaminophen 325 Mg Tab PO 650 mg Q4H PRN Administration Pain MILD(1-3)/Fever >100.5/LARA Albuterol 2.5 mg 12/02/20 05:09 Albuterol 2.5 Mg/3 Ml Nebu IH Q3HRT PRN Shortness Of Breath Ascorbic Acid 500 mg 12/03/20 22:00 12/07/20 21:13 Ascorbic Acid 500 Mg Tab PO 500 mg BID AZAEL Administration Cholecalciferol 5,000 unit 12/02/20 10:00 12/07/20 11:59 Cholecalciferol (Vit D3) 5,000 Unit Tab PO 5,000 unit DAILY AZAEL Administration Dexamethasone 6 mg 12/05/20 10:00 12/07/20 11:59 Dexamethasone 4 Mg/Ml Vial IV 12/11/20 10:01 6 mg DAILY AZAEL Administration Dextrose 50 ml 12/02/20 05:09 12/05/20 08:09 Dextrose 50% In Water (25gm) 50 Ml Syringe IV 50 ml Q30MIN PRN Administration Hypoglycemia Protocol Docusate Sodium 100 mg 12/02/20 10:00 12/07/20 21:13 Docusate Sodium 100 Mg Cap PO 100 mg BID AZAEL Administration Heparin Sodium (Porcine) 2,600 unit 12/06/20 19:00 Heparin 10,000 Units/10 Ml Vial 40 unit/kg (2600 unit) IV Q6H PRN Anti-Xa Assay < 0.1 units/ml Heparin Sodium/Sodium Chloride 25,000 unit in 500 mls @ 18 mls/hr 12/06/20 18:30 12/08/20 08:00 Heparin/ 0.45% Nacl-25,000 Unit/500 Ml IV 850 units/hr TITR AZAEL 17 mls/hr Administration Protocol 900 UNITS/HR Insulin Glargine 30 units 12/05/20 22:00 12/07/20 21:13 Insulin Glargine 100 Units/Ml SUB-Q 30 units QHS AZAEL Administration Insulin Human Lispro 0 unit 08/18/21 07:30 12/07/20 21:34 Insulin Lispro 100 Unit/Ml SUB-Q Not Given ACHS AZAEL Protocol Naloxone HCl 0.1 mg 12/02/20 05:09 Naloxone 0.4 Mg/1 Ml Inj IV Q2MIN PRN Res Rate </= 8 or 02 SAT < 92% Ondansetron HCl 4 mg 12/02/20 05:09 Ondansetron 4 Mg/2 Ml Inj IV Q6H PRN Nausea And Vomiting Oxycodone/Acetaminophen 1 tab 12/02/20 05:09 12/05/20 05:24 Oxycodone /Acetaminophen 5-325mg Tab PO 1 tab Q6H PRN Administration Pain, Moderate (4-6) Pantoprazole Sodium 40 mg 12/02/20 08:00 12/07/20 12:00 Pantoprazole 40 Mg Tab PO 40 mg BIDAC AZAEL Administration Sodium Chloride 10 ml 12/02/20 10:00 12/07/20 21:13 Sodium Chloride 0.9% 10 Ml Flush Syringe IV 10 ml BID AZAEL Administration Sodium Chloride 10 ml 12/02/20 05:09 Sodium Chloride 0.9% 10 Ml Flush Syringe IV PRN PRN LINE FLUSH Zinc Sulfate 220 mg 12/02/20 10:00 12/07/20 12:00 Zinc Sulfate 220 Mg Cap PO 220 mg QDAY AZAEL Administration Nutrition/Malnutrition Assess - Dietary Evaluation Nutrition/Malnutrition Findings: Nutrition Notes Start: 12/03/20 10:33 Freq: Status: Active Protocol: Document 12/03/20 10:33 EB (Rec: 12/03/20 10:36 [id number]) Nutrition Notes 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 Skin Integrity/Comment Intact Nutrition Intervention Revisit per MD consult or patient Sign Off request:
[2020-12-08] MEDS: PANTOPRAZOLE 40 MG TAB PO SCH ×3 (10:55→18:13)
[2020-12-08] MEDS: CHOLECALCIFEROL (VIT D3) 5,000 UNIT TAB PO SCH (10:56)
[2020-12-08] MEDS: ZINC SULFATE 220 MG CAP PO SCH (10:56)
[2020-12-08] MEDS: ASCORBIC ACID 500 MG TAB PO SCH ×2 (10:56→21:58)
[2020-12-08] MEDS: dexAMETHasone 4 MG/ML VIAL IV SCH (10:56)
[2020-12-08] MEDS: DOCUSATE SODIUM 100 MG CAP PO SCH ×2 (10:56→21:58)
[2020-12-08] MEDS: INSULIN LISPRO 100 UNIT/ML SUB-Q SCH ×3 (10:57→22:10)
[2020-12-08] MEDS ORDERED: CLOPIDOGREL 300 MG TAB PO NR (12:01)
--- NOTE | 2020-12-08 12:27 | Progress Note ---
Assessment and Plan 65-year-old -Stateless female with history of hypertension, diabetes, and GI bleed who presents [facility] ED with complaints of shortness of breath, loss of taste and smell, malaise, fatigue and weakness. Of note this is a [place] patient and [facility] has agreed to the admission. Patient presented to her local [place] clinic yesterday evening with complaints of Covid symptoms x6 days. CT angio chest done at [place] revealed extensive irregular bilateral groundglass opacities, and patient was referred to ED for further evaluation and treatment. Admits to known exposure, states that her friend whom she was in close contact with for several days recently tested positive for Covid. Endorses mild generalized headache, chest tightening, diarrhea, body aches, loss of smell and taste, and shortness of breath. Patient positive for Ferreira virus PCR. Denies fever, chills, abdominal pain, rash, hemoptysis, hematochezia, melena, history of restrictive/obstructive lung disease, or medication noncompliant Denies smoking, alcohol abuse, prescription drug abuse, IV drug use Patient awake. Weak. Patient resting on BIPAP20/10, Rate 14,FIO2 100%. O2 saturation running 90%. denies chest pain or shortness of breath at rest. Has some cough. Patient afebrile. No leukocytosis. Blood pressure 142/75, Pulse 105. Chest xray done 12/07/20 reported Mild improvement in the bilateral lung infiltra eleanor Patients D dimer greater than 10,000. Patient is on Dexamethasone, I/V Heparin, Protonix and Proventil. Patient finished course of REMDESIVIR and Ceftriaxone and zithromax. I spent critical care time of 42 minutes on this patient, review the chart, examine the patient, review chest xray, Lab results, talking to the nursing staff, respiratory therapy and work out plan of treatment in this critically ill COVID patient with pneumonia and acute hypoxic respiratory failure. - Patient Problems (1) Acute respiratory failure with hypoxia Current Visit: Yes Status: Acute Plan to address problem: Patient is on BIPAP 20/10, rate 14, FIO2 100%. Continue dexamethasone. Continue I/V heparin. Continue protonix. Proventil 2 puffs po qid PRN for shortness of breath. (2) COVID-19 virus infection Current Visit: Yes Status: Acute Plan to address problem: Patient finished course of REMDESIVIR. Patient is on dexamethasone and I/V Heparin. (3) Pneumonia due to COVID-19 virus Current Visit: Yes Status: Acute Plan to address problem: Patient finished short course of zithromax and ceftriaxone. (4) Hyperglycemia Current Visit: Yes Status: Acute Plan to address problem: Management as per primary care. (5) Anosmia Current Visit: Yes Status: Acute Plan to address problem: Most likely secondary to COVID infection. Subjective Date of service: 12/08/20 Principal diagnosis: Ac hypoxemic resp failure; COVID-19 infection; Pneumonia; ARDS; DM II; HTN Interval history: 65-year-old -Stateless female with history of hypertension, diabetes, and GI bleed who presents [facility] ED with complaints of shortness of breath, loss of taste and smell, malaise, fatigue and weakness. Of note this is a [place] [facility] and [place] has agreed to the admission. Patient presented to her local [place] clinic yesterday evening with complaints of Covid symptoms x6 days. CT angio chest done at [place] revealed extensive irregular bilateral groundglass opacities, and patient was referred to ED for further evaluation and treatment. Admits to known exposure, states that her friend whom she was in close contact with for several days recently tested positive for Covid. Endorses mild generalized headache, chest tightening, diarrhea, body aches, loss of smell and taste, and shortness of breath. Patient positive for Ferreira virus PCR. Denies fever, chills, abdominal pain, rash, hemoptysis, hematochezia, melena, hi story of restrictive/obstructive lung disease, or medication noncompliant Denies smoking, alcohol abuse, prescription drug abuse, IV drug use Patient awake. Weak. Patient resting on BIPAP20/10, Rate 14,FIO2 100%. O2 saturation running 90%. denies chest pain or shortness of breath at rest. Has some cough. Patient afebrile. No leukocytosis. Blood pressure 142/75, Pulse 105. Chest xray done 12/07/20 reported Mild improvement in the bilateral lung infiltrates Patients D dimer greater than 10,000. Patient is on Dexamethasone, I/V Heparin, Protonix and Proventil. Patient finished course of REMDESIVIR and Ceftriaxone and zithromax. Objective Vital Signs - 12hr 12/08/20 12/08/20 12/08/20 03:31 03:57 08:20 Temperature 98.0 F Pulse Rate 96 H 105 H Respiratory 18 45 H Rate Blood Pressure 111/53 O2 Sat by Pulse 91 82 L 90 Oximetry Constitutional: no acute distress, alert, other (elderly female with mildly increased respiratory effort at rest; p Patient weak.) Eyes: non-icteric ENT: oropharynx moist Neck: supple, no lymphadenopathy, no JVD Effort: mildly labored Ascultation: Bilateral: rhonchi (bases) Percussion: Bilateral: not dull Cardiovascular: regular rate and rhythm Gastrointestinal: normoactive bowel sounds, soft, non-tender, non-distended Integumentary: normal Extremities: no cyanosis, no edema, pulses normal, no ischemia or petechiae Neurologic: non-focal exam, pupils equal and round, CN II-XII normal Psychiatric: depressed CBC and BMP: 12/08/20 04:09 12/07/20 07:03 ABG, PT/INR, D-dimer: ABG ABG pH 7.494 (7.320-7.450) H 12/04/20 23:12 POC ABG pCO2 35.0 mmHg (32.0-48.0) 12/04/20 23:12 POC ABG pO2 56.3 mmHg (83-108) L 12/04/20 23:12 POC ABG HCO3 26.3 12/04/20 23:12 ABG O2 Saturation 88.8 (0-100) 12/04/20 23:12 PT/INR, D-dimer PT 17.4 Sec. (12.2-14.9) H 12/06/20 18:53 INR 1.37 (0.87-1.13) H 12/06/20 18:53 D-Dimer > 84205 ng/mlDDU (0-234) H 12/06/20 14:56 Abnormal lab findings: Abnormal Labs 12/02/20 12/02/20 12/02/20 03:58 03:58 03:58 RBC 3.57 L Hgb 8.9 L Hct 27.2 L MCV 76 L MCH 25 L RDW 17.6 H Lymph % (Auto) 6.7 L Lymph # (Auto) 0.3 L Seg Neutrophils % 87.7 H Seg Neuts % (Manual) Lymphocytes % (Manual) Lymphocytes # (Manual) PT INR D-Dimer 1559.33 H Heparin Anti-Xa Level ABG pH POC ABG pO2 ABG Hemoglobin ABG Oxyhemoglobin ABG Sodium ABG Chloride ABG Glucose Carboxyhemoglobin Sodium 130 L Chloride 90.0 L BUN 20 H Glucose 346 H POC Glucose Hemoglobin A1c Calcium Magnesium 2.40 H Ferritin AST 43 H Lactate Dehydrogenase 582 H C-Reactive Protein 34.20 H Total Protein Albumin 3.1 L Arterial Blood Glucose Coronavirus (PCR) 12/02/20 12/02/20 12/02/20 03:58 06:15 07:37 RBC Hgb Hct MCV MCH RDW Lymph % (Auto) Lymph # (Auto) Seg Neutrophils % Seg Neuts % (Manual) Lymphocytes % (Manual) Lymphocytes # (Manual) PT INR D-Dimer Heparin Anti-Xa Level ABG pH POC ABG pO2 ABG Hemoglobin ABG Oxyhemoglobin ABG Sodium ABG Chloride ABG Glucose Carboxyhemoglobin Sodium Chloride BUN Glucose POC Glucose 339 H Hemoglobin A1c 9.5 H Calcium Magnesium Ferritin 497.6 H AST Lactate Dehydrogenase C-Reactive Protein Total Protein Albumin Arterial Blood Glucose Coronavirus (PCR) 12/02/20 12/02/20 12/02/20 08:15 11:52 13:29 RBC Hgb 9.7 L Hct MCV MCH RDW Lymph % (Auto) Lymph # (Auto) Seg Neutrophils % Seg Neuts % (Manual) Lymphocytes % (Manual) Lymphocytes # (Manual) PT INR D-Dimer Heparin Anti-Xa Level ABG pH POC ABG pO2 ABG Hemoglobin ABG Oxyhemoglobin ABG Sodium ABG Chloride ABG Glucose Carboxyhemoglobin Sodium Chloride BUN Glucose POC Glucose 305 H Hemoglobin A1c Calcium Magnesium Ferritin AST Lactate Dehydrogenase C-Reactive Protein Total Protein Albumin Arterial Blood Glucose Coronavirus (PCR) Positive A 12/02/20 12/02/20 12/02/20 16:53 22:39 23:39 RBC Hgb Hct MCV MCH RDW Lymph % (Auto) Lymph # (Auto) Seg Neutrophils % Seg Neuts % (Manual) Lymphocytes % (Manual) Lymphocytes # (Manual) PT INR D-Dimer Heparin Anti-Xa Level ABG pH POC ABG pO2 ABG Hemoglobin ABG Oxyhemoglobin ABG Sodium ABG Chloride ABG Glucose Carboxyhemoglobin Sodium 131 L Chloride 93.8 L BUN 22 H Glucose 301 H POC Glucose 281 H 290 H Hemoglobin A1c Calcium Magnesium Ferritin AST Lactate Dehydrogenase C-Reactive Protein Total Protein 6.2 L Albumin 2.8 L Arterial Blood Glucose Coronavirus (PCR) 12/03/20 12/03/20 12/03/20 03:48 03:48 08:59 RBC 3.46 L Hgb 8.6 L Hct 26.5 L MCV 77 L MCH 25 L RDW 18.2 H Lymph % (Auto) Lymph # (Auto) Seg Neutrophils % Seg Neuts % (Manual) 93.0 H Lymphocytes % (Manual) 3.0 L Lymphocytes # (Manual) 0.2 L PT INR D-Dimer Heparin Anti-Xa Level ABG pH POC ABG pO2 ABG Hemoglobin ABG Oxyhemoglobin ABG Sodium ABG Chloride ABG Glucose Carboxyhemoglobin Sodium 131 L Chloride 92.5 L BUN 22 H Glucose 279 H POC Glucose 258 H Hemoglobin A1c Calcium 8.2 L Magnesium Ferritin AST Lactate Dehydrogenase C-Reactive Protein Total Protein 5.6 L Albumin 2.8 L Arterial Blood Glucose Coronavirus (PCR) 12/03/20 12/03/20 12/03/20 12:45 15:57 17:01 RBC Hgb Hct MCV MCH RDW Lymph % (Auto) Lymph # (Auto) Seg Neutrophils % Seg Neuts % (Manual) Lymphocytes % (Manual) Lymphocytes # (Manual) PT INR D-Dimer Heparin Anti-Xa Level ABG pH 7.527 H POC ABG pO2 50.4 L ABG Hemoglobin ABG Oxyhemoglobin ABG Sodium 129.8 L ABG Chloride 95.0 L ABG Glucose 394 H Carboxyhemoglobin Sodium Chloride BUN Glucose POC Glucose 349 H 359 H Hemoglobin A1c Calcium Magnesium Ferritin AST Lactate Dehydrogenase C-Reactive Protein Total Protein Albumin Arterial Blood Glucose 394 H Coronavirus (PCR) 12/03/20 12/04/20 12/04/20 21:16 04:27 06:49 RBC Hgb Hct MCV MCH RDW Lymph % (Auto) Lymph # (Auto) Seg Neutrophils % Seg Neuts % (Manual) Lymphocytes % (Manual) Lymphocytes # (Manual) PT INR D-Dimer Heparin Anti-Xa Level ABG pH 7.530 H POC ABG pO2 37.6 L ABG Hemoglobin 9.6 L ABG Oxyhemoglobin 72.5 L ABG Sodium 132.3 L ABG Chloride ABG Glucose 180 H Carboxyhemoglobin 0.4 L Sodium 136 L Chloride 97.3 L BUN 23 H Glucose 166 H POC Glucose 295 H Hemoglobin A1c Calcium Magnesium Ferritin AST Lactate Dehydrogenase C-Reactive Protein Total Protein 5.7 L Albumin 2.6 L Arterial Blood Glucose 180 H Coronavirus (PCR) 12/04/20 12/04/20 12/04/20 07:49 11:37 16:22 RBC Hgb Hct MCV MCH RDW Lymph % (Auto) Lymph # (Auto) Seg Neutrophils % Seg Neuts % (Manual) Lymphocytes % (Manual) Lymphocytes # (Manual) PT INR D-Dimer Heparin Anti-Xa Level ABG pH POC ABG pO2 ABG Hemoglobin ABG Oxyhemoglobin ABG Sodium ABG Chloride ABG Glucose Carboxyhemoglobin Sodium Chloride BUN Glucose POC Glucose 180 H 213 H 177 H Hemoglobin A1c Calcium Magnesium Ferritin AST Lactate Dehydrogenase C-Reactive Protein Total Protein Albumin Arterial Blood Glucose Coronavirus (PCR) 12/04/20 12/04/20 12/05/20 22:21 23:12 05:16 RBC Hgb Hct MCV MCH RDW Lymph % (Auto) Lymph # (Auto) Seg Neutrophils % Seg Neuts % (Manual) Lymphocytes % (Manual) Lymphocytes # (Manual) PT INR D-Dimer Heparin Anti-Xa Level ABG pH 7.494 H POC ABG pO2 56.3 L ABG Hemoglobin 8.6 L ABG Oxyhemoglobin 88.3 L ABG Sodium 131.8 L ABG Chloride ABG Glucose 205 H Carboxyhemoglobin 0.3 L Sodium Chloride BUN 19 H Glucose 64 L POC Glucose 207 H Hemoglobin A1c Calcium Magnesium Ferritin AST Lactate Dehydrogenase C-Reactive Protein Total Protein 6.0 L Albumin 2.8 L Arterial Blood Glucose 205 H Coronavirus (PCR) 12/05/20 12/05/20 12/05/20 08:01 09:07 12:31 RBC Hgb Hct MCV MCH RDW Lymph % (Auto) Lymph # (Auto) Seg Neutrophils % Seg Neuts % (Manual) Lymphocytes % (Manual) Lymphocytes # (Manual) PT INR D-Dimer Heparin Anti-Xa Level ABG pH POC ABG pO2 ABG Hemoglobin ABG Oxyhemoglobin ABG Sodium ABG Chloride ABG Glucose Carboxyhemoglobin Sodium Chloride BUN Glucose POC Glucose 49 L 157 H 113 H Hemoglobin A1c Calcium Magnesium Ferritin AST Lactate Dehydrogenase C-Reactive Protein Total Protein Albumin Arterial Blood Glucose Coronavirus (PCR) 12/05/20 12/06/20 12/06/20 16:57 07:51 12:07 RBC Hgb Hct MCV MCH RDW Lymph % (Auto) Lymph # (Auto) Seg Neutrophils % Seg Neuts % (Manual) Lymphocytes % (Manual) Lymphocytes # (Manual) PT INR D-Dimer Heparin Anti-Xa Level ABG pH POC ABG pO2 ABG Hemoglobin ABG Oxyhemoglobin ABG Sodium ABG Chloride ABG Glucose Carboxyhemoglobin Sodium Chloride BUN Glucose POC Glucose 223 H 110 H 229 H Hemoglobin A1c Calcium Magnesium Ferritin AST Lactate Dehydrogenase C-Reactive Protein Total Protein Albumin Arterial Blood Glucose Coronavirus (PCR) 12/06/20 12/06/20 12/06/20 14:56 16:00 18:53 RBC Hgb 9.6 L Hct MCV MCH RDW Lymph % (Auto) Lymph # (Auto) Seg Neutrophils % Seg Neuts % (Manual) Lymphocytes % (Manual) Lymphocytes # (Manual) PT INR D-Dimer > 36292 H Heparin Anti-Xa Level ABG pH POC ABG pO2 ABG Hemoglobin ABG Oxyhemoglobin ABG Sodium ABG Chloride ABG Glucose Carboxyhemoglobin Sodium Chloride BUN Glucose POC Glucose 235 H Hemoglobin A1c Calcium Magnesium Ferritin AST Lactate Dehydrogenase C-Reactive Protein Total Protein Albumin Arterial Blood Glucose Coronavirus (PCR) 12/06/20 12/06/20 12/07/20 18:53 23:15 07:03 RBC Hgb Hct MCV MCH RDW Lymph % (Auto) Lymph # (Auto) Seg Neutrophils % Seg Neuts % (Manual) Lymphocytes % (Manual) Lymphocytes # (Manual) PT 17.4 H INR 1.37 H D-Dimer Heparin Anti-Xa Level ABG pH POC ABG pO2 ABG Hemoglobin ABG Oxyhemoglobin ABG Sodium ABG Chloride ABG Glucose Carboxyhemoglobin Sodium Chloride BUN 23 H Glucose 62 L POC Glucose 170 H Hemoglobin A1c Calcium Magnesium Ferritin AST Lactate Dehydrogenase C-Reactive Protein Total Protein Albumin Arterial Blood Glucose Coronavirus (PCR) 12/07/20 12/07/20 12/07/20 07:03 07:28 17:45 RBC Hgb Hct MCV MCH RDW Lymph % (Auto) Lymph # (Auto) Seg Neutrophils % Seg Neuts % (Manual) Lymphocytes % (Manual) Lymphocytes # (Manual) PT INR D-Dimer Heparin Anti-Xa Level 0.85 H ABG pH POC ABG pO2 ABG Hemoglobin ABG Oxyhemoglobin ABG Sodium ABG Chloride ABG Glucose Carboxyhemoglobin Sodium Chloride BUN Glucose POC Glucose 54 L 196 H Hemoglobin A1c Calcium Magnesium Ferritin AST Lactate Dehydrogenase C-Reactive Protein Total Protein Albumin Arterial Blood Glucose Coronavirus (PCR) 12/07/20 21:26 RBC Hgb Hct MCV MCH RDW Lymph % (Auto) Lymph # (Auto) Seg Neutrophils % Seg Neuts % (Manual) Lymphocytes % (Manual) Lymphocytes # (Manual) PT INR D-Dimer Heparin Anti-Xa Level ABG pH POC ABG pO2 ABG Hemoglobin ABG Oxyhemoglobin ABG Sodium ABG Chloride ABG Glucose Carboxyhemoglobin Sodium Chloride BUN Glucose POC Glucose 165 H Hemoglobin A1c Calcium Magnesium Ferritin AST Lactate Dehydrogenase C-Reactive Protein Total Protein Albumin Arterial Blood Glucose Coronavirus (PCR) Allied health notes reviewed: nursing
[2020-12-08] MEDS: ASPIRIN 81 MG TAB CHEW PO SCH (13:22)
--- NOTE | 2020-12-08 13:25 | Consultation ---
History of Present Illness Consult date: 12/08/20 Consult reason: other (Acute [place]) History of present illness: This is a 65-year old F who was presented 5 days ago shortness of breath. Her initial chest x-ray showed bilateral infiltrate. Further workup revealed positive for COVID pneumonia. She is managed on the medical floor and is on Bipap therapy. On presentation an ECG was sinus rhythm with no ST or T wave changes, and troponin level was negative. A follow up EKG show new ST elevation in the inferior leads with ST depression in the lateral leads consistent with acute ischemia. Follow up troponin measurements are pending result. Patient currently denies chest pain. She denies a cardiac history and had no recent cardiac workup. Past History Past Medical History: diabetes, hypertension, other (GIB (2016)) Past Surgical History: Other (right wrist sx) Social history: single, full code, other (has a roommate). denies: smoking, alcohol abuse, prescription drug abuse, IV drug use Family history: diabetes, hypertension Medications and Allergies Allergies Allergy/AdvReac Type Severity Reaction Status Date / Time shellfish derived Allergy Unknown Verified 12/02/20 03:37 Home Medications Medication Instructions Recorded Confirmed Last Taken Type Qys-Dzf-Imir 334-134-5 mg Tab 3 mg PO DAILY 12/03/20 12/03/20 12/02/20 History Iron 65 mg PO DAILY 12/03/20 12/03/20 12/02/20 History Lisinopril/Hydrochlorothiazide 20 mg PO DAILY 12/03/20 12/03/20 Unknown History Metformin HCl [metFORMIN] 1,000 mg PO BID 12/03/20 12/03/20 12/02/20 History Simvastatin 40 mg PO DAILY 12/03/20 12/03/20 Unknown History glipiZIDE 10 mg PO DAILY 12/03/20 12/03/20 Unknown History Active Meds: Active Medications Acetaminophen (Acetaminophen 325 Mg Tab) 650 mg PO Q4H PRN PRN Reason: Pain MILD(1-3)/Fever >100.5/LARA Last Admin: 12/06/20 21:12 Dose: 650 mg Documented by: Albuterol (Albuterol 2.5 Mg/3 Ml Nebu) 2.5 mg IH Q3HRT PRN PRN Reason: Shortness Of Breath Ascorbic Acid (Ascorbic Acid 500 Mg Tab) 500 mg PO BID AZAEL Last Admin: 12/08/20 10:56 Dose: 500 mg Documented by: Aspirin (Aspirin 81 Mg Tab Chew) 81 mg PO QDAY [facility] Atorvastatin Calcium (Atorvastatin 40 Mg Tab) 40 mg PO QHS [facility] Cholecalciferol (Cholecalciferol (Vit D3) 5,000 Unit Tab) 5,000 unit PO DAILY [facility] Last Admin: 12/08/20 10:56 Dose: 5,000 unit Documented by: Clopidogrel Bisulfate (Clopidogrel 300 Mg Tab) 300 mg PO ONCE NR Stop: 12/08/20 14:00 Clopidogrel Bisulfate (Clopidogrel 75 Mg Tab) 75 mg PO QDAY [facility] Dexamethasone (Dexamethasone 4 Mg/Ml Vial) 6 mg IV DAILY [facility] Stop: 12/11/20 10:01 Last Admin: 12/08/20 10:56 Dose: 6 mg Documented by: Dextrose (Dextrose 50% In Water (25gm) 50 Ml Syringe) 50 ml IV Q30MIN PRN; Protocol PRN Reason: Hypoglycemia Last Admin: 12/05/20 08:09 Dose: 50 ml Documented by: Docusate Sodium (Docusate Sodium 100 Mg Cap) 100 mg PO BID [facility] Last Admin: 12/08/20 10:56 Dose: 100 mg Documented by: Heparin Sodium (Porcine) (Heparin 10,000 Units/10 Ml Vial) 2,600 unit 40 unit/kg (2600 unit) IV Q6H PRN PRN Reason: Anti-Xa Assay < 0.1 units/ml Heparin Sodium/Sodium Chloride (Heparin/ 0.45% Nacl-25,000 Unit/500 Ml) 25,000 unit in 500 mls @ 18 mls/hr IV TITR [facility]; Protocol Last Admin: 12/08/20 08:00 Dose: 850 units/hr, 17 mls/hr Documented by: Insulin Glargine (Insulin Glargine 100 Units/Ml) 30 units SUB-Q QHS [facility] Last Admin: 12/07/20 21:13 Dose: 30 units Documented by: Insulin Human Lispro (Insulin Lispro 100 Unit/Ml) 0 unit SUB-Q ACHS [facility]; Protocol Last Admin: 12/08/20 10:57 Dose: Not Given Documented by: Naloxone HCl (Naloxone 0.4 Mg/1 Ml Inj) 0.1 mg IV Q2MIN PRN PRN Reason: Res Rate </= 8 or 02 SAT < 92% Ondansetron HCl (Ondansetron 4 Mg/2 Ml Inj) 4 mg IV Q6H PRN PRN Reason: Nausea And Vomiting Oxycodone/Acetaminophen (Oxycodone /Acetaminophen 5-325mg Tab) 1 tab PO Q6H PRN PRN Reason: Pain, Moderate (4-6) Last Admin: 12/05/20 05:24 Dose: 1 tab Documented by: Pantoprazole Sodium (Pantoprazole 40 Mg Tab) 40 mg PO BIDAC [facility] Last Admin: 12/08/20 10:55 Dose: 40 mg Documented by: Sodium Chloride (Sodium Chloride 0.9% 10 Ml Flush Syringe) 10 ml IV BID [facility] Last Admin: 12/08/20 10:57 Dose: 10 ml Documented by: Sodium Chloride (Sodium Chloride 0.9% 10 Ml Flush Syringe) 10 ml IV PRN PRN PRN Reason: LINE FLUSH Zinc Sulfate (Zinc Sulfate 220 Mg Cap) 220 mg PO QDAY [facility] Last Admin: 12/08/20 10:56 Dose: 220 mg Documented by: Review of Systems Cardiovascular: no chest pain, no palpitations Physical Examination Vital Signs Temp Pulse Resp BP Pulse Ox 98.3 F 73 25 H 122/65 92 12/02/20 03:36 12/02/20 03:36 12/02/20 03:36 12/02/20 03:36 12/02/20 03:36 Narrative exam: Deferred due to isolation protocol. General appearance: no acute distress Cardiac: Positive: Reg Rate and Rhythm Results 12/08/20 04:09 12/07/20 07:03 CBC 12/08/20 Range/Units 04:09 Hgb 10.5 (10.1-14.3) gm/dl Hct 33.9 (30.3-42.9) % Plt Count 187 (140-440) K/mm3 Assessment and Plan Acute ST elevation [place] during hospital course COVID 19 pneumonia Hypertension Diabetes Patient is not a candidate for invasive cardiac procedure due to respiratory failure and severe COVID 19 pneumonia. Will recommend aggressive medical therapy including IV heparin drip, nitrates, beta blockers, aspirin and plavix and transfer to CCU for close monitoring. Echocardiogram for LVEF assessment.
[2020-12-08 14:53] LABS: Creatine Kinase MB 33.2 ng/mL (0.0-4.0)
[2020-12-08] MEDS ORDERED: SODIUM CHLORIDE 0.9% 1000 ML 1,000 ML ONE (14:58)
[2020-12-08] MEDS ORDERED: ROCURONIUM 50 MG/5 ML INJ IV ONE ×3 (15:01→16:00)
[2020-12-08] MEDS ORDERED: ETOMIDATE 20 MG/10 ML INJ IV ONE ×2 (15:01→16:00)
[2020-12-08] MEDS ORDERED: propofoL 200 MG/20 ML VIAL IV ONE ×3 (15:01→16:00)
[2020-12-08] MEDS ORDERED: fentaNYL DRIP Premix 2,000 MCG/100 ML BAG IV ONE (15:05)
[2020-12-08] MEDS: NORepinephrine/NS 8 MG-250 ML 8 MG/250 ML INFUS..BTL IV SCH (15:10)
[2020-12-08 15:13] LABS: Chol/HDL Ratio 2.51 %
[2020-12-08] MEDS ORDERED: fentaNYL 100 MCG/2 ML INJ IV PRN (15:13)
--- NOTE | 2020-12-08 15:18 | Progress Note ---
Assessment and Plan Cultures: SARS CoV2 PCR: Positive 12/02/2020 blood culture: no growth A/P: 65-year-old female with diabetes, hypertension admitted with: #Bilateral pneumonia: Secondary to COVID-19. Severe disease. #Acute hypoxic respiratory failure: Secondary to above. On BiPAP #Diabetes mellitus, uncontrolled: HbA1c 9.5 #ST elevation [place]: Cardiology following. Recs: -continue steroids, at least 10 days -Status post 5 days of remdesivir, Actemra -completed abx -cardiology on board. on full anticoag -poor prognosis Carl Goldstein MD, FACP [facility] O: [phone] F: [phone] Subjective Date of service: 12/08/20 Principal diagnosis: Ac hypoxemic resp failure; COVID-19 infection; Pneumonia; ARDS; DM II; HTN Interval history: No fever. Moved to ICU due to EKG findings of ST elevation. Remains on BiPAP. Objective - Exam Narrative Exam: Physical Exam (reviewed in chart to minimize risk of transmission) Constitutional: deferred Head, Ears, Nose: deferred Eyes: deferred Neck: deferred Oral: deferred Cardiovascular: deferred Respiratory: deferred GI: deferred Musculoskeletal: deferred Skin: deferred Hem/Lymphatic: deferred Psych: deferred Neurological: deferred - Constitutional Vitals: Vital Signs Temp Pulse Resp BP Pulse Ox 97.7 F 64 20 128/64 87 12/08/20 10:41 12/08/20 10:41 12/08/20 10:41 12/08/20 10:41 12/08/20 10:41 Temperature -Last 24 Hours Temperature 97.7 F Temperature 98.0 F Temperature 98.4 F Temperature 98.0 F - Labs CBC & Chem 7: 12/08/20 04:09 12/07/20 07:03 Labs: Abnormal lab results 12/07/20 12/07/20 12/08/20 Range/Units 17:45 21:26 13:11 POC Glucose 196 H 165 H 62 L (70-105) mg/dL Total Creatine Kinase (30-135) units/L CK-MB (CK-2) (0.0-4.0) ng/mL CK-MB (CK-2) Rel Index (0-4) Troponin T (0.00-0.029) ng/mL Triglycerides (2-149) mg/dL LDL Cholesterol Direct (50-130) mg/dL HDL Cholesterol (40-59) mg/dL 12/08/20 Range/Units 13:25 POC Glucose (70-105) mg/dL Total Creatine Kinase 520 H (30-135) units/L CK-MB (CK-2) 33.2 H (0.0-4.0) ng/mL CK-MB (CK-2) Rel Index 6.3 H (0-4) Troponin T 0.646 H* (0.00-0.029) ng/mL Triglycerides 181 H (2-149) mg/dL LDL Cholesterol Direct 30 L (50-130) mg/dL HDL Cholesterol 35 L (40-59) mg/dL
[2020-12-08] MEDS: fentaNYL DRIP Premix 2,000 MCG/100 ML BAG IV SCH ×2 (15:29→22:21)
--- NOTE | 2020-12-08 15:39 | Event Note ---
Date: 12/08/20 (transfer to ICU) Pt arrived in ICU in resp distress on bipap CCM at bedside Pt given 100 mg propofol and 40 mg Jan IV Intubated Xray ordered to confirm placement Neuro- sedated Sedated on fentanyl propofol added moving all extremities; not to command PERRL CV- sp STEMI; HTN trending trop asa/statin/plavix/metop echo pending cards following NE PRN for MAP goal of 65 pressors not needed she has been HTN ST central line inserted Resp acute resp failure with covid pna complicated by STEMI arrived on bipap in resp distress intubated mechanically ventilated see RT notes for titration ABG post intubation noted oscar inserted GI-nap NPO dobhoff placed nutrition consulted PPI bowel reg - nap strict I/O trend electrolytes trend Cr Heme-coagulopathic with covid19; on dual platelet therapy trend CBC VTE- hep drip no bleeding on exam labs ordered on admit to ICU ID- [id number] PNA with sepsis covid19 pna with sepsis afebrile trend temp and WBC follow culture data distal extremities cool to touch on arrival Endo- hyperglycemia SSI The high probability of a clinically significant, sudden or life threatening deterioration of the [all] system(s) required my full and direct attention, intervention and personal management. The aggregate critical care time was [60] minutes. This time is in addition to time spent performing reported procedures but includes the following: [x] Data Review and interpretation [x] Patient assessment and monitoring of vital signs [x] Documentation [x] Medication orders and management
[2020-12-08] MEDS ORDERED: MINERAL OIL/PETROLATUM, WHITE OPHTH OINT 3.5 GM OU PRN (15:56)
[2020-12-08] MEDS ORDERED: LIP THERAPY VASELINE TP PRN (15:56)
--- NOTE | 2020-12-08 15:56 | Event Note ---
Date: 12/08/20 transferred to ICU - s/p intubation RSI - place CVL - repeat labs - ABG at 9 pm
[2020-12-08] MEDS ORDERED: SODIUM CHLORIDE 0.9% 1000 ML 1,000 ML IV ONE (15:58)
--- NOTE | 2020-12-08 16:19 | XRay Report ---
ABDOMEN, SINGLE VIEW INDICATION / CLINICAL INFORMATION: OG TUBE PALCEMENT. COMPARISON: None available. FINDINGS: An enteric feeding tube has been placed. The tip is projecting in the distal stomach and is probably in the region of the pylorus. IMPRESSION: Satisfactory positioning of feeding tube. Signer Name: Alivia Campbell MD Signed: 12/08/2020 4:14 PM Workstation Name: [id number]
--- NOTE | 2020-12-08 17:15 | XRay Report ---
XR chest 1V ap INDICATION / CLINICAL INFORMATION: EET PLACEMENT. COMPARISON: 12/07/2020 FINDINGS: SUPPORT DEVICES: Endotracheal tube projects in the midtrachea. HEART /PULMONARY VASCULATURE: Unchanged. LUNGS / PLEURA: Lung parenchyma is not significantly changed. No pneumothorax. IMPRESSION: Satisfactory position of endotracheal tube. Otherwise stable chest. Signer Name: Christiano Boston MD Signed: 12/08/2020 5:11 PM Workstation Name: [email or web address]
--- NOTE | 2020-12-08 17:15 | Procedure Note ---
Date of procedure: 12/08/20 (oscar) Pre-op diagnosis: respiratory failure Procedure: left radial oscar insertion site prepped with CHG using US guidance/sterile technique- left radial oscar was inserted without difficulty stat lock/ CHG disc/ dressing applied line connected to pressor tubing and monitor - good waveform pt tolerated well time spent not included in daily critical care Pathology: none
[2020-12-08] MEDS ORDERED: SODIUM CHLORIDE 0.9% 500 ML 500 ML IV PRN (17:19)
--- NOTE | 2020-12-08 17:23 | Procedure Note ---
Date of procedure: 12/08/20 (central line) Pre-op diagnosis: covid pna, acute hypoxic resp failure, ACS Post-op diagnosis: same Procedure: Right IJ TLC CVL 2 MD consent for emergent CVL catheter - pt in acute respiratory failure and needs CVL access for vasopressor use -Dr Robert and Dr. Bright aware RIJ TLC CVL catheter placed, over the wire without difficulty. Sterile technique utilized. Area prepped with chlorhexidine/ full body drape utilized. Line was sutured, biopatch placed and tegaderm dressing applied. Chest xray to confirm placement. No pneumothorax. RN called to bedside. Pt tolerated procedure well. VS remained stable throughout procedure. (time spent placing line not included in daily critical care time) CCT: 60 min Surgeon: MACKENZIE AKBAR Caddie: GUS TURNER Estimated blood loss: minimal Condition: critical Disposition: ICU
--- NOTE | 2020-12-08 17:38 | XRay Report ---
CHEST 1 VIEW INDICATION / CLINICAL INFORMATION: line placement. COMPARISON: Earlier same day FINDINGS: SUPPORT DEVICES: Interval placement of right IJ central venous catheter with tip at the superior cavo atrial junction. No change in endotracheal tube. Interval placement of enteric tube with tip not visu alized. HEART / MEDIASTINUM: No significant abnormality. LUNGS / PLEURA: No significant change in bilateral airspace disease. No pneumothorax. ADDITIONAL FINDINGS: No significant additional findings. IMPRESSION: Interval placement of right IJ central venous catheter and enteric tube without acute postprocedural complication. Enteric tube tip is not visualized. Signer Name: Adelso Eaton MD Signed: 12/08/2020 5:33 PM Workstation Name: [email or web address]
[2020-12-08] MEDS: NITROGLYCERIN 2% OINT 1 GM TP SCH (18:11)
[2020-12-08 20:50] LABS: Hemoglobin 8.1 gm/dl (10.1-14.3); Mean Corpuscular HGB Conc 31 % (30-34); Mean Corpuscular Volume 78 fl (79-97); Platelet Count 193 K/mm3 (140-440); Red Blood Count 3.35 M/mm3 (3.65-5.03); Red Cell Distribution Width 18.5 % (13.2-15.2)
[2020-12-08 21:13] LABS: Albumin 2.6 g/dL (3.9-5); Calcium 7.8 mg/dL (8.4-10.2)
[2020-12-08 21:38] LABS: Creatine Kinase MB 31.5 ng/mL (0.0-4.0)
[2020-12-08 21:42] LABS: Partial Thromboplastin Time 62.9 Sec. (24.2-36.6)
[2020-12-08 21:46] LABS: Total Cells Counted 100
[2020-12-08 21:47] LABS: Anisocytosis 1+
[2020-12-08] MEDS: METOPROLOL TARTRATE 50 MG TAB PO SCH (21:57)
[2020-12-08] MEDS: SENNOSIDES/DOCUSATE SODIUM 8.6/50 MG TAB FEEDTUBE SCH (21:58)
[2020-12-08] MEDS: INSULIN GLARGINE 100 UNITS/ML SUB-Q SCH (22:22)
[2020-12-09] MEDS: NITROGLYCERIN 2% OINT 1 GM TP SCH ×4 (05:17→18:54)
[2020-12-09] MEDS: fentaNYL DRIP Premix 2,000 MCG/100 ML BAG IV SCH ×3 (05:47→20:45)
[2020-12-09] MEDS: NORepinephrine/NS 8 MG-250 ML 8 MG/250 ML INFUS..BTL IV SCH ×3 (05:48→20:46)
[2020-12-09] MEDS ORDERED: SODIUM POLYSTYRENE 15 GM/60 ML ORAL LIQD PO ONE (08:00)
--- NOTE | 2020-12-09 09:32 | XRay Report ---
CHEST 1 VIEW 12/09/2020 8:05 AM INDICATION / CLINICAL INFORMATION: follow up respiratory failure/ CT ANGIO @0800. COMPARISON: Previous day. FINDINGS: SUPPORT DEVICES: Unchanged. HEART / MEDIASTINUM: No significant abnormality. LUNGS / PLEURA: Improving bilateral interstitial opacity. No pneumothorax. ADDITIONAL FINDINGS: No significant additional findings. IMPRESSION: Mild interval improvement. Signer Name: Slade Mcginnis MD Signed: 12/09/2020 9:27 AM Workstation Name: [email or web address]
[2020-12-09] MEDS: LANSOPRAZOLE 30 MG SOLUTAB FEEDTUBE SCH ×2 (10:25→23:09)
[2020-12-09] MEDS: ASPIRIN 81 MG TAB CHEW PO SCH (10:25)
[2020-12-09] MEDS: ASCORBIC ACID 500 MG TAB PO SCH ×2 (10:25→23:09)
[2020-12-09] MEDS: ZINC SULFATE 220 MG CAP PO SCH (10:25)
[2020-12-09] MEDS: DOCUSATE SODIUM 100 MG CAP PO SCH ×2 (10:25→23:09)
[2020-12-09] MEDS: SENNOSIDES/DOCUSATE SODIUM 8.6/50 MG TAB FEEDTUBE SCH ×2 (10:25→23:09)
[2020-12-09] MEDS: CLOPIDOGREL 75 MG TAB PO SCH (10:25)
[2020-12-09] MEDS ORDERED: SODIUM BICARBONATE 325 MG TAB FEEDTUBE PRN (10:32)
[2020-12-09] MEDS ORDERED: LIPASE 10,500/PROTEASE 25,000/AMYLASE 43,750 (UNITS) DR CAP FEEDTUBE PRN (10:32)
[2020-12-09] MEDS ORDERED: SIMPLE SYRUP 15 ML FEEDTUBE PRN (10:32)
--- NOTE | 2020-12-09 10:35 | Progress Note ---
<GUS TURNER Ruthann - Last Filed: 12/09/20 15:42> Assessment and Plan Assessment and plan: Assessment and Plan Assessment and plan: 65-year-old -German female with history of hypertension, diabetes, and GI bleed who presents [facility] ED with complaints of shortness of breath, loss of taste and smell, malaise, fatigue and weakness. Of note this is a [place] patient and [place] has agreed to the admission. Patient presented to her local [place] clinic yesterday evening with complaints of Covid symptoms x6 days. CT angio chest done at [place] revealed extensive irregular bilateral groundglass opacities, and patient was referred to ED for further evaluation and treatment. Admits to known exposure, states that her friend whom she was in close contact with for several days recently tested positive for Covid. Endorses mild generalized headache, chest tightening, diarrhea, body aches, loss of smell and taste, and shortness of breath. Denies fever, chills, abdominal pain, rash, hemoptysis, hematochezia, melena, history of restrictive/obstructive lung disease, or medication noncompliant COVID-19 test is positive patient is high flow in progress 40liters/100%, will obtain pulmonary consultation. Will adjust glargine for better insulin coverage. Continue remdesivir and Solu-Medrol. Will monitor progression. Encourage prone positioning. We will give a dose of Lasix today. Would like to go to full dose anticoagulation but patient's anemia is precluding And also patient with noted positive stool and remote history of GI bleed in 2016 if no worsening renal function with the Lasix given today will consider CTA in the morning if patient is not improving 12/04: Patient seen and examined, considering worsening hypoxia and stable renal function will order CTA to rule out pulmonary embolism. Will give one-time full dose anticoagulation and continue the prophylactic dose as being careful due to history of GI bleed. And noted anemia. I discussed with the manager hospital patient will transfer to [facility]. For now continue steroid therapy will give additional dose of Lasix today. Blood sugar is better controlled. Continue steroids and remdesivir. Patient also Getting Actmera also. Patient was able to prone today. 12/05: Patient s/p Actemra. Continue supportive care she is prone. She continue s on steroids and remdesivir. We will give additional Lasix today and monitor renal function in a.m. She remains on high flow and nonrebreather mask/sign of the severity of her hypoxia 12/07: Patient remains on High flow, desaturating despite being on 100% highflow and NRBM, encourage to go back on BiPAP, she protested but now willing with improvement back to 89%. Patient is now on heparin drip, will obtain Chest xray. prongnosis -guarded 12/08: Patient still with hypoxic respiratory failure, worsening symptoms, EKG done concerning for inferior wall WA, STAT Troponin still pending. Discussed with the pulmonary doctor and also with the tour coordinator. Patient due to worsening symptoms is unable to go to the cathlab as she is not stable due to significant hypoxic. The patient again denies any chest pain, BUT WONDER IF this is secondary to the ongoing Heparin drip. Will start on full dose Plavix, Low dose ASA, BB if tolerating. Transfer to the ICU. Patient is s.p Remdesivir and Actmera continue Steroids and Heparin drip. Plan discussed with the patient in detail Noted with Hypoglycemia, will adjust insulin Need to monitor Nutritional status Very guarded prognosis 12/09 no acute events overnight NEURO opens eyes nods appropriately sedated on propofol CV RESP Acute hypoxic respiratory failure -No Baseline home oxygen requirements -Currently on supplemental -Monitor saturations -Continue supplemental oxygen wean as tolerated -Albuterol GI nutrition consult TF to start PPI bowel reg in diapers- monitor skin follow Cr strict I/O Heme Anemia -Guaiac positive stool, remote history of GI bleed (2016) -Trend H&H -Hemoglobin on admission 8.9 -Continue to monitor hemoglobin -Transfuse as needed for hgb<7 ID COVID-19 pneumonia -Admits to known exposure -Presented at outside facility ([place]) with Covid symptom complaints, CT angio chest bilateral ground glass opacities, consistent with Covid -Covid inflammatory markers elevated -PCR pending -On zinc and vitamin D - started on Decadron -ID consulted Pneumonia -Likely due to COVID-19 -CXR shows bilateral probable Covid pneumonia -Cultures pending -Started on IV ABX -Monitor CBC ENDO DM2 -Uncontrolled, with hyperglycemia -POC BG monitoring -Schedule Lantus and SSI coverage prn -HgbA1C pending The high probability of a clinically significant, sudden or life threatening deterioration of the [pulmonary] system(s) required my full and direct attention, intervention and personal management. The aggregate critical care time was [60] minutes. This time is in addition to time spent performing reported procedures but includes the following: [x] Data Review and interpretation [x] Patient assessment and monitoring of vital signs [x] Documentation [x] Medication orders and management Disposition Plan: ICU Total Time Spent with Patient (Minutes): 60 History Interval history: intubated yesterday afternoon on arrival to ICU Hospitalist Physical - Constitutional Vitals: Temp Pulse Resp BP Pulse Ox 98.6 F 64 24 92/35 99 12/09/20 08:00 12/09/20 09:00 12/09/20 09:00 12/09/20 09:00 12/09/20 08:06 General appearance: Present: no acute distress HEART Score - HEART Score Troponin: Troponin T 0.648 ng/mL (0.00-0.029) H* 12/08/20 20:15 Results - Labs CBC & Chem 7: 12/08/20 20:15 12/08/20 20:15 Labs: Laboratory Last Values WBC 24.0 K/mm3 (4.5-11.0) H 12/08/20 20:15 RBC 3.35 M/mm3 (3.65-5.03) L 12/08/20 20:15 Hgb 8.1 gm/dl (10.1-14.3) L 12/08/20 20:15 Hct 26.0 % (30.3-42.9) L D 12/08/20 20:15 MCV 78 fl (79-97) L 12/08/20 20:15 MCH 24 pg (28-32) L 12/08/20 20:15 MCHC 31 % (30-34) 12/08/20 20:15 RDW 18.5 % (13.2-15.2) H 12/08/20 20:15 Plt Count 193 K/mm3 (140-440) 12/08/20 20:15 Lymph % (Auto) 6.7 % (13.4-35.0) L 12/02/20 03:58 [place] % (Auto) 5.4 % (0.0-7.3) 12/02/20 03:58 Eos % (Auto) 0.0 % (0.0-4.3) 12/02/20 03:58 Baso % (Auto) 0.2 % (0.0-1.8) 12/02/20 03:58 Lymph # (Auto) 0.3 K/mm3 (1.2-5.4) L 12/02/20 03:58 [place] # (Auto) 0.3 K/mm3 (0.0-0.8) 12/02/20 03:58 Eos # (Auto) 0.0 K/mm3 (0.0-0.4) 12/02/20 03:58 Baso # (Auto) 0.0 K/mm3 (0.0-0.1) 12/02/20 03:58 Add Manual Diff Complete 12/08/20 20:15 Total Counted 100 12/08/20 20:15 Seg Neutrophils % Education Research Analyst 12/08/20 20:15 Seg Neuts % (Manual) 91.0 % (40.0-70.0) H 12/08/20 20:15 Band Neutrophils % 1.0 % 12/03/20 03:48 Lymphocytes % (Manual) 5.0 % (13.4-35.0) L 12/08/20 20:15 Monocytes % (Manual) 3.0 % (0.0-7.3) 12/08/20 20:15 Eosinophils % (Manual) 1.0 % (0.0-4.3) 12/08/20 20:15 Nucleated RBC % Not Reportable 12/08/20 20:15 Seg Neutrophils # 4.4 K/mm3 (1.8-7.7) 12/02/20 03:58 Seg Neutrophils # Man 21.8 K/mm3 (1.8-7.7) H 12/08/20 20:15 Band Neutrophils # 0.0 K/mm3 12/08/20 20:15 Lymphocytes # (Manual) 1.2 K/mm3 (1.2-5.4) 12/08/20 20:15 Abs React Lymphs (Man) 0.0 K/mm3 12/08/20 20:15 Monocytes # (Manual) 0.7 K/mm3 (0.0-0.8) 12/08/20 20:15 Eosinophils # (Manual) 0.2 K/mm3 (0.0-0.4) 12/08/20 20:15 Basophils # (Manual) 0.0 K/mm3 (0.0-0.1) 12/08/20 20:15 Metamyelocytes # 0.0 K/mm3 12/08/20 20:15 Myelocytes # 0.0 K/mm3 12/08/20 20:15 Promyelocytes # 0.0 K/mm3 12/08/20 20:15 Blast Cells # 0.0 K/mm3 12/08/20 20:15 WBC Morphology Not Reportable 12/08/20 20:15 Hypersegmented Neuts Not Reportable 12/08/20 20:15 Hyposegmented Neuts Not Reportable 12/08/20 20:15 Hypogranular Neuts Not Reportable 12/08/20 20:15 Smudge Cells Not Reportable 12/08/20 20:15 Toxic Granulation Not Reportable 12/08/20 20:15 Toxic Vacuolation Not Reportable 12/08/20 20:15 Dohle Bodies Not Reportable 12/08/20 20:15 Pelger-Huet Anomaly Not Reportable 12/08/20 20:15 Minna Rods Not Reportable 12/08/20 20:15 Platelet Estimate Not Reportable 12/08/20 20:15 Clumped Platelets Not Reportable 12/08/20 20:15 Plt Clumps, EDTA Not Reportable 12/08/20 20:15 Large Platelets Not Reportable 12/08/20 20:15 Giant Platelets Not Reportable 12/08/20 20:15 Platelet Satelliting Not Reportable 12/08/20 20:15 Plt Morphology Comment Not Reportable 12/08/20 20:15 RBC Morphology Not Reportable 12/08/20 20:15 Dimorphic RBCs Not Reportable 12/08/20 20:15 Polychromasia Not Reportable 12/08/20 20:15 Hypochromasia Not Reportable 12/08/20 20:15 Poikilocytosis Not Reportable 12/08/20 20:15 Anisocytosis 1+ 12/08/20 20:15 Microcytosis Rare 12/08/20 20:15 Macrocytosis Not Reportable 12/08/20 20:15 Spherocytes Not Reportable 12/08/20 20:15 Pappenheimer Bodies Not Reportable 12/08/20 20:15 Sickle Cells Not Reportable 12/08/20 20:15 Target Cells Not Reportable 12/08/20 20:15 Tear Drop Cells Not Reportable 12/08/20 20:15 Ovalocytes Not Reportable 12/08/20 20:15 Helmet Cells Not Reportable 12/08/20 20:15 Lopes-May[place] Bodies Not Reportable 12/08/20 20:15 [place] Rings Not Reportable 12/08/20 20:15 Goyo Cells Not Reportable 12/08/20 20:15 Bite Cells Not Reportable 12/08/20 20:15 Crenated Cell Not Reportable 12/08/20 20:15 Elliptocytes Not Reportable 12/08/20 20:15 Acanthocytes (Spur) Not Reportable 12/08/20 20:15 Rouleaux Not Reportable 12/08/20 20:15 Hemoglobin C Crystals Not Reportable 12/08/20 20:15 Schistocytes Not Reportable 12/08/20 20:15 Malaria parasites Not Reportable 12/08/20 20:15 Po Bodies Not Reportable 12/08/20 20:15 Hem Pathologist Commnt No 12/08/20 20:15 PT 17.4 Sec. (12.2-14.9) H 12/06/20 18:53 INR 1.37 (0.87-1.13) H 12/06/20 18:53 APTT 62.9 Sec. (24.2-36.6) H* 12/08/20 20:15 D-Dimer > 88914 ng/mlDDU (0-234) H 12/08/20 20:15 Heparin Anti-Xa Level 0.85 U.I./ml (0.3-0.7) H 12/09/20 06:00 ABG pH 7.338 (7.320-7.450) 12/09/20 08:13 POC ABG pCO2 50.7 mmHg (32.0-48.0) H 12/09/20 08:13 POC ABG pO2 156.4 mmHg (83-108) H 12/09/20 08:13 POC ABG HCO3 26.6 12/09/20 08:13 ABG O2 Saturation 99.1 (0-100) 12/09/20 08:13 POC ABG Base Excess 0.5 12/09/20 08:13 ABG Hemoglobin 8.7 (12.0-17.5) L 12/09/20 08:13 ABG Oxyhemoglobin 98.0 (94-98) 12/09/20 08:13 ABG Methemoglobin 0.3 (0.0-1.5) 12/09/20 08:13 ABG Sodium 134.9 mmol/L (136.0-145.0) L 12/09/20 08:13 ABG Potassium 5.4 mmol/L (3.40-4.50) H 12/09/20 08:13 ABG Chloride 104.0 mmol/L (98-107) 12/09/20 08:13 ABG Glucose 140 mg/dL (65-95) H 12/09/20 08:13 Carboxyhemoglobin 0.8 (0.5-1.5) 12/09/20 08:13 FiO2 % 100.0 12/09/20 08:13 Sodium 138 mmol/L (137-145) 12/08/20 20:15 Potassium 5.1 mmol/L (3.6-5.0) H D 12/08/20 20:15 Chloride 102.4 mmol/L (98-107) 12/08/20 20:15 Carbon Dioxide 27 mmol/L (22-30) 12/08/20 20:15 Anion Gap 14 mmol/L 12/08/20 20:15 BUN 27 mg/dL (7-17) H 12/08/20 20:15 Creatinine 1.2 mg/dL (0.6-1.2) 12/08/20 20:15 Estimated GFR 54 ml/min 12/08/20 20:15 BUN/Creatinine Ratio 23 % 12/08/20 20:15 Glucose 186 mg/dL (65-100) H 12/08/20 20:15 POC Glucose 163 mg/dL (70-105) H 12/08/20 22:03 Hemoglobin A1c 9.5 % (4-6) H 12/02/20 06:15 Calcium 7.8 mg/dL (8.4-10.2) L 12/08/20 20:15 Phosphorus 5.50 mg/dL (2.5-4.5) H 12/08/20 20:15 Magnesium 2.40 mg/dL (1.7-2.3) H 12/08/20 20:15 Ferritin 497.6 ng/mL (10.0-200.0) H 12/02/20 03:58 Total Bilirubin 0.40 mg/dL (0.1-1.2) 12/08/20 20:15 AST 126 units/L (5-40) H 12/08/20 20:15 ALT 22 units/L (7-56) 12/08/20 20:15 Alkaline Phosphatase 298 units/L (35-129) H 12/08/20 20:15 Lactate Dehydrogenase 2677 units/L (91-180) H 12/08/20 20:15 Total Creatine Kinase 521 units/L (30-135) H 12/08/20 20:15 CK-MB (CK-2) 31.5 ng/mL (0.0-4.0) H 12/08/20 20:15 CK-MB (CK-2) Rel Index 6.0 (0-4) H 12/08/20 20:15 Troponin T 0.648 ng/mL (0.00-0.029) H* 12/08/20 20:15 C-Reactive Protein 34.20 mg/dL (0.00-1.30) H 12/02/20 03:58 NT-Pro-B Natriuret Pep 1573 pg/mL (0-900) H 12/08/20 20:15 Total Protein 4.9 g/dL (6.3-8.2) L 12/08/20 20:15 Albumin 2.6 g/dL (3.9-5) L 12/08/20 20:15 Albumin/Globulin Ratio 1.1 % 12/08/20 20:15 Triglycerides 181 mg/dL (2-149) H 12/08/20 13:25 Cholesterol 88 mg/dL (50-199) 12/08/20 13:25 LDL Cholesterol Direct 30 mg/dL (50-130) L 12/08/20 13:25 HDL Cholesterol 35 mg/dL (40-59) L 12/08/20 13:25 Cholesterol/HDL Ratio 2.51 % 12/08/20 13:25 Procalcitonin 1.18 ng/mL (<0.15) 12/02/20 03:58 Arterial Blood Glucose 140 mg/dL (65-95) H 12/09/20 08:13 Arterial Blood Ionized Calcium 4.2 mg/dL (4.6-5.3) L 12/09/20 08:13 Coronavirus (PCR) Positive (Negative) A 12/02/20 08:15 Carpenter/IV: Voiding Method External Female Catheter Active Medications - Current Medications Current Medications: Generic Name Dose Route Start Last Admin Trade Name Freq PRN Reason Stop Dose Admin Acetaminophen 650 mg 12/02/20 05:09 12/06/20 21:12 Acetaminophen 325 Mg Tab PO 650 mg Q4H PRN Administration Pain MILD(1-3)/Fever >100.5/LARA Albuterol 2.5 mg 12/02/20 05:09 Albuterol 2.5 Mg/3 Ml Nebu IH Q3HRT PRN Shortness Of Breath Lipase/Protease/Amylase 1 each 12/09/20 10:32 Lipase 10,500/Protease 25,000/Amylase 43,750 (Units) Dr Fong FEEDTUBE PRN PRN For Clogged Feeding Tube Ascorbic Acid 500 mg 12/03/20 22:00 12/09/20 10:25 Ascorbic Acid 500 Mg Tab PO 500 mg BID AZAEL Administration Aspirin 81 mg 12/08/20 13:00 12/09/20 10:25 Aspirin 81 Mg Tab Chew PO 81 mg QDAY AZAEL Administration Atorvastatin Calcium 40 mg 12/08/20 22:00 12/08/20 21:58 Atorvastatin 40 Mg Tab PO 40 mg QHS AZAEL Administration Cholecalciferol 5,000 unit 12/02/20 10:00 12/08/20 10:56 Cholecalciferol (Vit D3) 5,000 Unit Tab PO 5,000 unit DAILY AZAEL Administration Clopidogrel Bisulfate 75 mg 12/09/20 10:00 12/09/20 10:25 Clopidogrel 75 Mg Tab PO 75 mg QDAY AZAEL Administration Dexamethasone 6 mg 12/05/20 10:00 12/08/20 10:56 Dexamethasone 4 Mg/Ml Vial IV 12/11/20 10:01 6 mg DAILY AZAEL Administration Dextrose 50 ml 12/02/20 05:09 12/05/20 08:09 Dextrose 50% In Water (25gm) 50 Ml Syringe IV 50 ml Q30MIN PRN Administration Hypoglycemia Protocol Docusate Sodium 100 mg 12/02/20 10:00 12/09/20 10:25 Docusate Sodium 100 Mg Cap PO 100 mg BID AZAEL Administration Fentanyl 50 mcg 12/08/20 15:13 Fentanyl 100 Mcg/2 Ml Inj IV Q10MIN PRN ANALGESIA Heparin Sodium (Porcine) 2,600 unit 12/06/20 19:00 Heparin 10,000 Units/10 Ml Vial 40 unit/kg (2600 unit) IV Q6H PRN Anti-Xa Assay < 0.1 units/ml Hydrophilic Ointment 1 applic 12/08/20 15:56 Lip Therapy Vaseline TP Q2HR PRN Dry Lips Heparin Sodium/Sodium Chloride 25,000 unit in 500 mls @ 18 mls/hr 12/06/20 18:30 12/09/20 07:07 Heparin/ 0.45% Nacl-25,000 Unit/500 Ml IV 800 units/hr TITR AZAEL 16 mls/hr Titration Protocol 900 UNITS/HR Fentanyl Citrate 2,000 mcg in 100 mls @ 3.243 mls/hr 12/08/20 16:00 12/09/20 05:47 Fentanyl Drip Premix IV 4 mcg/kg/hr TITR AZAEL 12.973 mls/hr Administration Protocol 1 MCG/KG/HR NORepinephrine/NS 8 MG-250 ML 8 mg in 250 mls @ 3.75 mls/hr 12/08/20 16:00 12/09/20 05:48 Norepinephrine/Ns 8 Mg-250 Ml (Double Conc) IV 10 mcg/min TITRATE AZAEL 18.75 mls/hr Administration Protocol 2 MCG/MIN Propofol 1,000 mg in 100 mls @ 1.946 mls/hr 12/08/20 17:00 12/09/20 06:01 Diprivan 10 Mg/Ml IV 15 mcg/kg/min TITR AZAEL 5.838 mls/hr Administration Protocol 5 MCG/KG/MIN Sodium Chloride 500 mls @ 1 mls/hr 12/08/20 17:19 Nacl 0.9% 500 Ml IV DIRECT PRN ARTERIAL LINE FLUSH Insulin Glargine 12 units 12/08/20 22:00 12/08/20 22:22 Insulin Glargine 100 Units/Ml SUB-Q 12 units QHS AZAEL Administration Insulin Human Lispro 0 unit 12/09/20 12:00 Insulin Lispro 100 Unit/Ml SUB-Q Q6HR AZAEL Protocol Lansoprazole 30 mg 12/09/20 10:00 12/09/20 10:25 Lansoprazole 30 Mg Solutab FEEDTUBE 30 mg BID AZAEL Administration Multi-Ingred Cream/Lotion/Oil/Oint 1 applic 12/08/20 15:56 Mineral Oil/Petrolatum, White Ophth Oint 3.5 Gm OU Q4HR PRN Dry Eye(s) Naloxone HCl 0.1 mg 12/02/20 05:09 Naloxone 0.4 Mg/1 Ml Inj IV Q2MIN PRN Res Rate </= 8 or 02 SAT < 92% Nitroglycerin 1 inch 12/08/20 14:00 12/09/20 05:17 Nitroglycerin 2% Oint 1 Gm TP Not Given QIDNTG [facility] Protocol Ondansetron HCl 4 mg 12/02/20 05:09 Ondansetron 4 Mg/2 Ml Inj IV Q6H PRN Nausea And Vomiting Senna/Docusate Sodium 1 tab 12/08/20 22:00 12/09/20 10:25 Sennosides/Docusate Sodium 8.6/50 Mg Tab FEEDTUBE 1 tab BID AZAEL Administration Simple Syrup 30 ml 12/09/20 10:32 Simple Syrup 15 Ml FEEDTUBE PRN PRN Hypoglycemia Sodium Bicarbonate 325 mg 12/09/20 10:32 Sodium Bicarbonate 325 Mg Tab FEEDTUBE PRN PRN For Clogged Feeding Tube Sodium Chloride 10 ml 12/02/20 10:00 12/08/20 21:58 Sodium Chloride 0.9% 10 Ml Flush Syringe IV 10 ml BID AZAEL Administration Sodium Chloride 10 ml 12/02/20 05:09 Sodium Chloride 0.9% 10 Ml Flush Syringe IV PRN PRN LINE FLUSH Zinc Sulfate 220 mg 12/02/20 10:00 12/09/20 10:25 Zinc Sulfate 220 Mg Cap PO 220 mg QDAY AZAEL Administration Nutrition/Malnutrition Assess - Dietary Evaluation Nutrition/Malnutrition Findings: Nutrition Notes Start: 12/03/20 10:33 Freq: Status: Active Protocol: Document 12/08/20 16:11 IWONA (Rec: 12/08/20 16:16 IWONA [id number]) Nutrition Notes Need for Assessment generated from: MD Order Initial or Follow up Reassessment Current Diagnosis Respiratory Failure Other Pertinent Diagnosis Covid +, Hyperglycemia Current Diet NPO Labs/Tests reviewed Pertinent Medications Levophed gtt Height 4 ft 11.84 in Weight 64.864 kg [place] Body Weight (kg) 45.09 BMI 28.0 Subjective/Other Information RD consulted to evaluate nutritional intake. Pt transferred to ICU today and intubated. No TF consult received. Burn Absent Trauma Absent #1 Nutrition Diagnosis Inadequate oral intake Diagnosis Progress(for reassessment Continues documentation) Is patient on ventilator? Yes Is Patient Ambulatory and/or Out of Bed No [facility] [phone] Calculation Used for Recommendations [facility] Additional Notes Pro needs 1.2-2g/k-130g/ day Fluid needs 1ml/kcal Nutrition Intervention Nutrition Support: Recommend Vital AF 1.2 at 45ml /hr if EN support necessary. Goal #1 Start EN support to meet nutrient needs Follow-Up By: 12/09/20 Additional Comments F/U: TF consult, vent status - Attestation Statement I have reviewed and agreed w/ Malnutrition eval & tx plan: Yes <JEREMY INMAN - Last Filed: 12/09/20 20:06> Assessment and Plan Assessment and plan: I saw and evaluated the patient. Discussed with the nurse practitioner and agree with their findings and plan as documented in this note. Hospitalist Physical - Constitutional Vitals: Temp Pulse Resp BP Pulse Ox 98.1 F 68 24 92/35 96 12/09/20 16:00 12/09/20 19:46 12/09/20 19:46 12/09/20 19:46 12/09/20 19:46 HEART Score - HEART Score Troponin: Troponin T 0.487 ng/mL (0.00-0.029) H* D 12/09/20 13:08 Results - Labs CBC & Chem 7: 12/09/20 13:08 12/09/20 13:08 Labs: Laboratory Last Values WBC 20.8 K/mm3 (4.5-11.0) H 12/09/20 13:08 RBC 3.35 M/mm3 (3.65-5.03) L 12/09/20 13:08 Hgb 8.3 gm/dl (10.1-14.3) L 12/09/20 13:08 Hct 26.2 % (30.3-42.9) L 12/09/20 13:08 MCV 78 fl (79-97) L 12/09/20 13:08 MCH 25 pg (28-32) L 12/09/20 13:08 MCHC 32 % (30-34) 12/09/20 13:08 RDW 19.5 % (13.2-15.2) H 12/09/20 13:08 Plt Count 248 K/mm3 (140-440) 12/09/20 13:08 Lymph % (Auto) 6.7 % (13.4-35.0) L 12/02/20 03:58 [place] % (Auto) 5.4 % (0.0-7.3) 12/02/20 03:58 Eos % (Auto) 0.0 % (0.0-4.3) 12/02/20 03:58 Baso % (Auto) 0.2 % (0.0-1.8) 12/02/20 03:58 Lymph # (Auto) 0.3 K/mm3 (1.2-5.4) L 12/02/20 03:58 [place] # (Auto) 0.3 K/mm3 (0.0-0.8) 12/02/20 03:58 Eos # (Auto) 0.0 K/mm3 (0.0-0.4) 12/02/20 03:58 Baso # (Auto) 0.0 K/mm3 (0.0-0.1) 12/02/20 03:58 Add Manual Diff Complete 12/08/20 20:15 Total Counted 100 12/08/20 20:15 Seg Neutrophils % Education Research Analyst 12/08/20 20:15 Seg Neuts % (Manual) 91.0 % (40.0-70.0) H 12/08/20 20:15 Band Neutrophils % 1.0 % 12/03/20 03:48 Lymphocytes % (Manual) 5.0 % (13.4-35.0) L 12/08/20 20:15 Monocytes % (Manual) 3.0 % (0.0-7.3) 12/08/20 20:15 Eosinophils % (Manual) 1.0 % (0.0-4.3) 12/08/20 20:15 Nucleated RBC % Not Reportable 12/08/20 20:15 Seg Neutrophils # 4.4 K/mm3 (1.8-7.7) 12/02/20 03:58 Seg Neutrophils # Man 21.8 K/mm3 (1.8-7.7) H 12/08/20 20:15 Band Neutrophils # 0.0 K/mm3 12/08/20 20:15 Lymphocytes # (Manual) 1.2 K/mm3 (1.2-5.4) 12/08/20 20:15 Abs React Lymphs (Man) 0.0 K/mm3 12/08/20 20:15 Monocytes # (Manual) 0.7 K/mm3 (0.0-0.8) 12/08/20 20:15 Eosinophils # (Manual) 0.2 K/mm3 (0.0-0.4) 12/08/20 20:15 Basophils # (Manual) 0.0 K/mm3 (0.0-0.1) 12/08/20 20:15 Metamyelocytes # 0.0 K/mm3 12/08/20 20:15 Myelocytes # 0.0 K/mm3 12/08/20 20:15 Promyelocytes # 0.0 K/mm3 12/08/20 20:15 Blast Cells # 0.0 K/mm3 12/08/20 20:15 WBC Morphology Not Reportable 12/08/20 20:15 Hypersegmented Neuts Not Reportable 12/08/20 20:15 Hyposegmented Neuts Not Reportable 12/08/20 20:15 Hypogranular Neuts Not Reportable 12/08/20 20:15 Smudge Cells Not Reportable 12/08/20 20:15 Toxic Granulation Not Reportable 12/08/20 20:15 Toxic Vacuolation Not Reportable 12/08/20 20:15 Dohle Bodies Not Reportable 12/08/20 20:15 Pelger-Huet Anomaly Not Reportable 12/08/20 20:15 Minna Rods Not Reportable 12/08/20 20:15 Platelet Estimate Not Reportable 12/08/20 20:15 Clumped Platelets Not Reportable 12/08/20 20:15 Plt Clumps, EDTA Not Reportable 12/08/20 20:15 Large Platelets Not Reportable 12/08/20 20:15 Giant Platelets Not Reportable 12/08/20 20:15 Platelet Satelliting Not Reportable 12/08/20 20:15 Plt Morphology Comment Not Reportable 12/08/20 20:15 RBC Morphology Not Reportable 12/08/20 20:15 Dimorphic RBCs Not Reportable 12/08/20 20:15 Polychromasia Not Reportable 12/08/20 20:15 Hypochromasia Not Reportable 12/08/20 20:15 Poikilocytosis Not Reportable 12/08/20 20:15 Anisocytosis 1+ 12/08/20 20:15 Microcytosis Rare 12/08/20 20:15 Macrocytosis Not Reportable 12/08/20 20:15 Spherocytes Not Reportable 12/08/20 20:15 Pappenheimer Bodies Not Reportable 12/08/20 20:15 Sickle Cells Not Reportable 12/08/20 20:15 Target Cells Not Reportable 12/08/20 20:15 Tear Drop Cells Not Reportable 12/08/20 20:15 Ovalocytes Not Reportable 12/08/20 20:15 Helmet Cells Not Reportable 12/08/20 20:15 [place] Bodies Not Reportable 12/08/20 20:15 [place] Rings Not Reportable 12/08/20 20:15 Goyo Cells Not Reportable 12/08/20 20:15 Bite Cells Not Reportable 12/08/20 20:15 Crenated Cell Not Reportable 12/08/20 20:15 Elliptocytes Not Reportable 12/08/20 20:15 Acanthocytes (Spur) Not Reportable 12/08/20 20:15 Rouleaux Not Reportable 12/08/20 20:15 Hemoglobin C Crystals Not Reportable 12/08/20 20:15 Schistocytes Not Reportable 12/08/20 20:15 Malaria parasites Not Reportable 12/08/20 20:15 Po Bodies Not Reportable 12/08/20 20:15 Hem Pathologist Commnt No 12/08/20 20:15 PT 15.2 Sec. (12.2-14.9) H 12/09/20 13:08 INR 1.15 (0.87-1.13) H 12/09/20 13:08 APTT 84.5 Sec. (24.2-36.6) H* 12/09/20 13:08 Fibrinogen 260 mg/dl (211-480) 12/09/20 13:08 D-Dimer 4051.67 ng/mlDDU (0-234) H 12/09/20 13:08 Heparin Anti-Xa Level 0.94 U.I./ml (0.3-0.7) H 12/09/20 13:08 ABG pH 7.338 (7.320-7.450) 12/09/20 08:13 POC ABG pCO2 50.7 mmHg (32.0-48.0) H 12/09/20 08:13 POC ABG pO2 156.4 mmHg (83-108) H 12/09/20 08:13 POC ABG HCO3 26.6 12/09/20 08:13 ABG O2 Saturation 99.1 (0-100) 12/09/20 08:13 POC ABG Base Excess 0.5 12/09/20 08:13 ABG Hemoglobin 8.7 (12.0-17.5) L 12/09/20 08:13 ABG Oxyhemoglobin 98.0 (94-98) 12/09/20 08:13 ABG Methemoglobin 0.3 (0.0-1.5) 12/09/20 08:13 ABG Sodium 134.9 mmol/L (136.0-145.0) L 12/09/20 08:13 ABG Potassium 5.4 mmol/L (3.40-4.50) H 12/09/20 08:13 ABG Chloride 104.0 mmol/L (98-107) 12/09/20 08:13 ABG Glucose 140 mg/dL (65-95) H 12/09/20 08:13 Carboxyhemoglobin 0.8 (0.5-1.5) 12/09/20 08:13 FiO2 % 100.0 12/09/20 08:13 Sodium 140 mmol/L (137-145) 12/09/20 13:08 Potassium 5.0 mmol/L (3.6-5.0) 12/09/20 13:08 Chloride 104.0 mmol/L (98-107) 12/09/20 13:08 Carbon Dioxide 23 mmol/L (22-30) 12/09/20 13:08 Anion Gap 18 mmol/L 12/09/20 13:08 BUN 34 mg/dL (7-17) H 12/09/20 13:08 Creatinine 1.4 mg/dL (0.6-1.2) H 12/09/20 13:08 Estimated GFR 45 ml/min 12/09/20 13:08 BUN/Creatinine Ratio 24 % 12/09/20 13:08 Glucose 156 mg/dL (65-100) H 12/09/20 13:08 POC Glucose 179 mg/dL (70-105) H 12/09/20 17:17 Hemoglobin A1c 9.5 % (4-6) H 12/02/20 06:15 Lactic Acid 2.50 mmol/L (0.7-2.0) H* 12/09/20 13:08 Calcium 8.1 mg/dL (8.4-10.2) L 12/09/20 13:08 Phosphorus 4.70 mg/dL (2.5-4.5) H 12/09/20 13:08 Magnesium 2.70 mg/dL (1.7-2.3) H 12/09/20 13:08 Ferritin 472.6 ng/mL (10.0-200.0) H 12/09/20 13:08 Total Bilirubin 0.50 mg/dL (0.1-1.2) 12/09/20 13:08 AST 97 units/L (5-40) H 12/09/20 13:08 ALT 21 units/L (7-56) 12/09/20 13:08 Alkaline Phosphatase 241 units/L (35-129) H 12/09/20 13:08 Lactate Dehydrogenase 2146 units/L (91-180) H 12/09/20 13:08 Total Creatine Kinase 521 units/L (30-135) H 12/08/20 20:15 CK-MB (CK-2) 31.5 ng/mL (0.0-4.0) H 12/08/20 20:15 CK-MB (CK-2) Rel Index 6.0 (0-4) H 12/08/20 20:15 Troponin T 0.487 ng/mL (0.00-0.029) H* D 12/09/20 13:08 C-Reactive Protein 8.70 mg/dL (0.00-1.30) H 12/09/20 13:08 NT-Pro-B Natriuret Pep 2396 pg/mL (0-900) H 12/09/20 13:08 Total Protein 5.2 g/dL (6.3-8.2) L 12/09/20 13:08 Albumin 2.7 g/dL (3.9-5) L 12/09/20 13:08 Albumin/Globulin Ratio 1.1 % 12/09/20 13:08 Triglycerides 181 mg/dL (2-149) H 12/08/20 13:25 Cholesterol 88 mg/dL (50-199) 12/08/20 13:25 LDL Cholesterol Direct 30 mg/dL (50-130) L 12/08/20 13:25 HDL Cholesterol 35 mg/dL (40-59) L 12/08/20 13:25 Cholesterol/HDL Ratio 2.51 % 12/08/20 13:25 Procalcitonin 1.18 ng/mL (<0.15) 12/02/20 03:58 Arterial Blood Glucose 140 mg/dL (65-95) H 12/09/20 08:13 Arterial Blood Ionized Calcium 4.2 mg/dL (4.6-5.3) L 12/09/20 08:13 Coronavirus (PCR) Positive (Negative) A 12/02/20 08:15 Carpenter/IV: Voiding Method Indwelling Catheter Active Medications - Current Medications Current Medications: Generic Name Dose Route Start Last Admin Trade Name Freq PRN Reason Stop Dose Admin Acetaminophen 650 mg 12/02/20 05:09 12/06/20 21:12 Acetaminophen 325 Mg Tab PO 650 mg Q4H PRN Administration Pain MILD(1-3)/Fever >100.5/LARA Albuterol 2.5 mg 12/02/20 05:09 Albuterol 2.5 Mg/3 Ml Nebu IH Q3HRT PRN Shortness Of Breath Lipase/Protease/Amylase 1 each 12/09/20 10:32 Lipase 10,500/Protease 25,000/Amylase 43,750 (Units) Dr Fong FEEDTUBE PRN PRN For Clogged Feeding Tube Ascorbic Acid 500 mg 12/03/20 22:00 12/09/20 10:25 Ascorbic Acid 500 Mg Tab PO 500 mg BID AZAEL Administration Aspirin 81 mg 12/08/20 13:00 12/09/20 10:25 Aspirin 81 Mg Tab Chew PO 81 mg QDAY AZAEL Administration Atorvastatin Calcium 40 mg 12/08/20 22:00 12/08/20 21:58 Atorvastatin 40 Mg Tab PO 40 mg QHS AZAEL Administration Cholecalciferol 5,000 unit 12/02/20 10:00 12/09/20 15:26 Cholecalciferol (Vit D3) 5,000 Unit Tab PO Not Given DAILY AZAEL Clopidogrel Bisulfate 75 mg 12/09/20 10:00 12/09/20 10:25 Clopidogrel 75 Mg Tab PO 75 mg QDAY AZAEL Administration Dexamethasone 6 mg 12/05/20 10:00 12/09/20 10:37 Dexamethasone 4 Mg/Ml Vial IV 12/11/20 10:01 6 mg DAILY AZAEL Administration Dextrose 50 ml 12/02/20 05:09 12/05/20 08:09 Dextrose 50% In Water (25gm) 50 Ml Syringe IV 50 ml Q30MIN PRN Administration Hypoglycemia Protocol Docusate Sodium 100 mg 12/02/20 10:00 12/09/20 10:25 Docusate Sodium 100 Mg Cap PO 100 mg BID AZAEL Administration Fentanyl 50 mcg 12/08/20 15:13 Fentanyl 100 Mcg/2 Ml Inj IV Q10MIN PRN ANALGESIA Heparin Sodium (Porcine) 2,600 unit 12/06/20 19:00 Heparin 10,000 Units/10 Ml Vial 40 unit/kg (2600 unit) IV Q6H PRN Anti-Xa Assay < 0.1 units/ml Hydrophilic Ointment 1 applic 12/08/20 15:56 Lip Therapy Vaseline TP Q2HR PRN Dry Lips Heparin Sodium/Sodium Chloride 25,000 unit in 500 mls @ 18 mls/hr 12/06/20 18:30 12/09/20 18:03 Heparin/ 0.45% Nacl-25,000 Unit/500 Ml IV 700 units/hr TITR AZAEL 14 mls/hr Administration Protocol 900 UNITS/HR Fentanyl Citrate 2,000 mcg in 100 mls @ 3.243 mls/hr 12/08/20 16:00 12/09/20 13:37 Fentanyl Drip Premix IV 4 mcg/kg/hr TITR AZAEL 12.973 mls/hr Administration Protocol 1 MCG/KG/HR NORepinephrine/NS 8 MG-250 ML 8 mg in 250 mls @ 3.75 mls/hr 12/08/20 16:00 12/09/20 14:00 Norepinephrine/Ns 8 Mg-250 Ml (Double Conc) IV 16 mcg/min TITRATE AZAEL 30 mls/hr Administration Protocol 2 MCG/MIN Propofol 1,000 mg in 100 mls @ 1.946 mls/hr 12/08/20 17:00 12/09/20 15:05 Diprivan 10 Mg/Ml IV 40 mcg/kg/min TITR AZAEL 15.567 mls/hr Administration Protocol 5 MCG/KG/MIN Sodium Chloride 500 mls @ 1 mls/hr 12/08/20 17:19 Nacl 0.9% 500 Ml IV DIRECT PRN ARTERIAL LINE FLUSH Cefepime HCl 2 gm in 100 mls @ 200 mls/hr 12/09/20 14:00 12/09/20 13:40 Cefepime/Ns 2 Gm/100 Ml IV 200 mls/hr Q12H [facility] Administration Protocol Vancomycin HCl 1 gm in 250 mls @ 167.007 mls/hr 12/10/20 14:00 Vancomycin/Ns 1 Gm/250 Ml IV Q24H [facility] Insulin Glargine 12 units 12/08/20 22:00 12/08/20 22:22 Insulin Glargine 100 Units/Ml SUB-Q 12 units QHS [facility] Administration Insulin Human Lispro 0 unit 12/09/20 12:00 12/09/20 19:22 Insulin Lispro 100 Unit/Ml SUB-Q 3 unit Q6HR [facility] Administration Protocol Lansoprazole 30 mg 12/09/20 10:00 12/09/20 10:25 Lansoprazole 30 Mg Solutab FEEDTUBE 30 mg BID [facility] Administration Multi-Ingred Cream/Lotion/Oil/Oint 1 applic 12/08/20 15:56 Mineral Oil/Petrolatum, White Ophth Oint 3.5 Gm OU Q4HR PRN Dry Eye(s) Naloxone HCl 0.1 mg 12/02/20 05:09 Naloxone 0.4 Mg/1 Ml Inj IV Q2MIN PRN Res Rate </= 8 or 02 SAT < 92% Nitroglycerin 1 inch 12/08/20 14:00 12/09/20 18:54 Nitroglycerin 2% Oint 1 Gm TP Not Given QIDNTG [facility] Protocol Ondansetron HCl 4 mg 12/02/20 05:09 Ondansetron 4 Mg/2 Ml Inj IV Q6H PRN Nausea And Vomiting Senna/Docusate Sodium 1 tab 12/08/20 22:00 12/09/20 10:25 Sennosides/Docusate Sodium 8.6/50 Mg Tab FEEDTUBE 1 tab BID [facility] Administration Simple Syrup 30 ml 12/09/20 10:32 Simple Syrup 15 Ml FEEDTUBE PRN PRN Hypoglycemia Sodium Bicarbonate 325 mg 12/09/20 10:32 Sodium Bicarbonate 325 Mg Tab FEEDTUBE PRN PRN For Clogged Feeding Tube Sodium Chloride 10 ml 12/02/20 10:00 12/09/20 10:36 Sodium Chloride 0.9% 10 Ml Flush Syringe IV 10 ml BID AZAEL Administration Sodium Chloride 10 ml 12/02/20 05:09 Sodium Chloride 0.9% 10 Ml Flush Syringe IV PRN PRN LINE FLUSH Zinc Sulfate 220 mg 12/02/20 10:00 12/09/20 10:25 Zinc Sulfate 220 Mg Cap PO 220 mg QDAY AZAEL Administration Nutrition/Malnutrition Assess - Dietary Evaluation Nutrition/Malnutrition Findings: Nutrition Notes Start: 12/03/20 10:33 Freq: Status: Active Protocol: Document 12/09/20 13:06 SAMMI (Rec: 12/09/20 13:09 SAMMI [id number]) Nutrition Notes Need for Assessment generated from: MD Order Initial or Follow up Reassessment Current Diagnosis Respiratory Failure Other Pertinent Diagnosis Covid +, Hyperglycemia Current Diet TF Labs/Tests Reviewed Pertinent Medications Propofol at 5.838 ml/hr Height 4 ft 11.84 in Weight 64.864 kg [place] Body Weight (kg) 45.09 BMI 28.0 Weight Status Overweight Subjective/Other Information RN states MD would like TF started. Pt remains on vent. Burn Absent Trauma Absent Minimum of two criteria No #1 Nutrition Diagnosis Inadequate oral intake Diagnosis Progress(for reassessment Continues documentation) Is patient on ventilator? Yes Is Patient Ambulatory and/or Out of Bed No REE-([facility]-confined to bed) [phone] Calculation Used for Recommendations [facility] Additional Notes Pro needs 1.2-2g/k-130g/ day Fluid needs 1ml/kcal Nutrition Intervention Nutrition Support: Vital AF 1.2 at 45 ml/hr. Flush 75 ml q4h or per MD. Kcal 1,296 Protein (gm) 81 Fluid (mL) 876 Add Supplement/Snack (indicate name/kcal d/c /protein ) Goal #1 Meet at least 75% of protein and energy needs via TF Anticipated Discharge Needs: Unable to determine at this time Follow-Up By: 08/27/21 Additional Comments F/U: TF start and tolerance
[2020-12-09] MEDS: dexAMETHasone 4 MG/ML VIAL IV SCH (10:37)
--- NOTE | 2020-12-09 10:41 | Electrocardiograph Report ---
[facility] Test Date: 2020-12-08 Test Time: 11:37:30 Pat Name: KENNETH REIS Department: Room: A255 Gender: F [employer]: HARSH : 1955 Requested By: PRAKASH LION Order Number: [id number] Reading MD: Biju Sanders Measurements Intervals [place] Rate: 107 P: 51 NV: 118 QRS: 18 QRSD: 73 T: 78 QT: 317 QTc: 424 Interpretive Statements Sinus tachycardia Probable left ventricular hypertrophy Inferior infarct, acute Lateral wall also involved Compared to ECG 12/08/2020 10:57:09 Ventricular premature complex(es) no longer present Aberrant conduction of supraventricular beat(s) no longer present Myocardial infarct finding still present Electronically Signed On 12-09-2020 10:41:17 EDT by Biju Sanders
--- NOTE | 2020-12-09 10:41 | Electrocardiograph Report ---
[facility] Test Date: 2020-12-08 Test Time: 10:57:09 Pat Name: KENNETH REIS Department: Room: A255 Gender: F [employer]: AHRSH : 1955 Requested By: PRAKASH LION Order Number: [id number] Reading MD: Biju Sanders Measurements Intervals [place] Rate: 110 P: 53 NH: 116 QRS: 38 QRSD: 75 T: 78 QT: 305 QTc: 414 Interpretive Statements Sinus tachycardia Ventricular premature complex Aberrant conduction of SV complex(es) Inferior infarct, acute Lateral wall also involved Compared to ECG 12/02/2020 03:51:06 Ventricular premature complex(es) now present Minor ST elevations in inferolateal leads noted,consider acute injury. Electronically Signed On 12-09-2020 10:40:54 EDT by Biju Sanders
--- NOTE | 2020-12-09 11:00 | Progress Note ---
Assessment and Plan Acute ST elevation MO during hospital course COVID 19 pneumonia Acute respiratory failure intubated on the vent Hypertension Diabetes Patient is not a candidate for invasive cardiac procedures due to respiratory failure and severe COVID 19 pneumonia. Continue aggressive medical therapy including IV heparin drip, nitrates, beta blockers, aspirin and plavix as tolerated. An echocardiogram will be done for LVEF assessment. Subjective Date of service: 12/09/20 Principal diagnosis: Ac hypoxemic resp failure; COVID-19 infection; Pneumonia; ARDS; DM II; HTN Interval history: Patient is awake but remains intubated and on pressors for support. Objective Vital Signs Temp Pulse Pulse Resp BP Pulse Ox 12/09/20 09:00 64 24 92/35 12/09/20 08:46 88 18 92/35 12/09/20 08:30 61 24 92/35 12/09/20 08:16 60 20 92/35 12/09/20 08:06 94 H 92/35 99 12/09/20 08:00 98.6 F 88 20 92/35 12/09/20 07:46 84 20 93/42 100 12/09/20 07:30 83 20 93/42 100 12/09/20 07:16 67 20 93/42 100 12/09/20 07:00 72 20 93/42 100 12/09/20 06:46 72 20 100/60 100 12/09/20 06:30 72 20 100/60 100 12/09/20 06:16 76 20 112/59 12/09/20 06:00 78 20 112/59 100 12/09/20 05:46 75 20 112/59 93 12/09/20 05:30 76 19 112/59 87 12/09/20 05:17 75 105/57 95 12/09/20 05:16 73 20 112/59 96 12/09/20 05:00 74 20 112/59 96 12/09/20 04:46 75 20 105/57 95 12/09/20 04:30 76 20 105/57 90 12/09/20 04:16 73 20 105/57 96 12/09/20 04:00 73 20 105/57 96 12/09/20 03:46 74 20 113/47 96 12/09/20 03:30 73 20 113/47 97 12/09/20 03:28 98.1 F 12/09/20 03:16 74 20 113/47 95 12/09/20 03:00 75 20 113/47 97 12/09/20 02:46 77 20 103/52 96 12/09/20 02:30 76 19 103/52 95 12/09/20 02:15 77 20 103/52 96 12/09/20 02:00 78 20 103/52 97 12/09/20 01:46 80 20 118/46 94 12/09/20 01:30 82 20 118/46 97 12/09/20 01:16 81 20 118/46 98 12/09/20 01:00 84 21 118/46 97 12/09/20 00:46 88 19 106/54 93 12/09/20 00:36 81 104/45 97 12/09/20 00:30 90 18 106/54 92 12/09/20 00:16 107 H 18 106/54 87 12/09/20 00:00 98.8 F 90 19 106/54 96 12/08/20 23:46 79 22 104/45 97 12/08/20 23:30 82 20 104/45 97 12/08/20 23:18 82 20 104/45 97 12/08/20 23:10 81 21 104/45 98 12/08/20 23:00 82 20 104/45 98 12/08/20 22:50 84 18 98/38 97 12/08/20 22:40 82 20 98/38 97 12/08/20 22:30 85 21 98/38 93 12/08/20 22:20 82 22 98/38 97 12/08/20 22:10 90 14 98/38 98 12/08/20 22:00 79 20 89/42 100 12/08/20 21:57 81 89/42 12/08/20 21:50 83 20 89/42 99 12/08/20 21:40 86 20 89/42 98 12/08/20 21:30 93 H 20 89/42 96 12/08/20 21:20 87 20 89/42 97 12/08/20 21:10 86 20 89/42 98 12/08/20 21:00 90 20 89/42 97 12/08/20 20:53 88 97/52 97 12/08/20 20:50 89 20 92/52 98 12/08/20 20:40 92 H 21 92/52 92 12/08/20 20:30 94 H 20 92/52 90 12/08/20 20:20 89 20 92/52 96 12/08/20 20:10 92 H 14 92/52 97 12/08/20 20:00 92 H 15 92/52 98 12/08/20 19:52 99.0 F 12/08/20 19:50 94 H 13 90/52 97 12/08/20 19:40 97 H 20 90/52 97 12/08/20 19:30 99 H 20 90/52 98 12/08/20 19:20 104 H 19 90/52 97 12/08/20 19:10 122 H 24 90/52 93 12/08/20 19:00 115 H 18 90/52 89 12/08/20 18:50 122 H 18 94 12/08/20 18:40 118 H 19 76 L 12/08/20 18:30 109 H 19 12/08/20 18:20 95 H 18 12/08/20 18:10 105 H 20 85/40 12/08/20 18:00 115 H 108 H 21 85/40 94 12/08/20 17:50 110 H 20 90/51 100 12/08/20 17:40 112 H 20 107/37 92 12/08/20 17:30 115 H 20 88/55 92 12/08/20 17:20 124 H 20 82/49 12/08/20 17:10 130 H 20 58/39 76 L 12/08/20 17:00 99.1 F 133 H 18 136/71 45 L 12/08/20 16:50 131 H 30 H 145/74 47 L 12/08/20 16:40 131 H 29 H 172/70 52 L 12/08/20 16:30 127 H 28 H 183/71 71 L 12/08/20 16:20 136 H 24 179/72 92 12/08/20 16:10 120 H 20 155/78 92 12/08/20 16:00 128 H 21 162/93 94 12/08/20 15:50 130 H 19 145/86 94 12/08/20 15:40 122 H 20 114/60 40 L 12/08/20 15:30 114 H 20 114/51 12/08/20 15:20 103 H 31 H 118/90 12/08/20 15:13 122 H 155/78 93 08/24/21 15:10 118 H 37 H 12/08/20 15:00 116 H 41 H 143/78 12/08/20 14:56 122 H 40 H 12/08/20 12:50 102 H 42 H 88 - Physical Examination Narrative exam: Deferred due to isolation protocol. General: Other (intubated on the vent) Cardiac: Positive: Reg Rate and Rhythm - Labs and Meds Cardiac Enzymes 12/08/20 12/08/20 12/08/20 Range/Units 13:25 20:15 20:15 AST 126 H (5-40) units/L Lactate Dehydrogenase 2677 H (91-180) units/L CK-MB (CK-2) 33.2 H 31.5 H (0.0-4.0) ng/mL Coagulation 12/08/20 Range/Units 20:15 APTT 62.9 H* (24.2-36.6) Sec. Lipids 12/08/20 Range/Units 13:25 Triglycerides 181 H (2-149) mg/dL Cholesterol 88 (50-199) mg/dL HDL Cholesterol 35 L (40-59) mg/dL Cholesterol/HDL Ratio 2.51 % CBC 12/08/20 Range/Units 20:15 WBC 24.0 H (4.5-11.0) K/mm3 RBC 3.35 L (3.65-5.03) M/mm3 Hgb 8.1 L (10.1-14.3) gm/dl Hct 26.0 L D (30.3-42.9) % Plt Count 193 (140-440) K/mm3 Comprehensive Metabolic Panel 12/08/20 Range/Units 20:15 Sodium 138 (137-145) mmol/L Potassium 5.1 H D (3.6-5.0) mmol/L Chloride 102.4 (98-107) mmol/L Carbon Dioxide 27 (22-30) mmol/L BUN 27 H (7-17) mg/dL Creatinine 1.2 (0.6-1.2) mg/dL Glucose 186 H (65-100) mg/dL Calcium 7.8 L (8.4-10.2) mg/dL AST 126 H (5-40) units/L ALT 22 (7-56) units/L Alkaline Phosphatase 298 H (35-129) units/L Total Protein 4.9 L (6.3-8.2) g/dL Albumin 2.6 L (3.9-5) g/dL - Allied health notes Allied health notes reviewed: nursing
--- NOTE | 2020-12-09 11:39 | Progress Note ---
Assessment and Plan Acute hypoxemic respiratory failure COVID-19 infection STEMI Bilateral pneumonia Acute respiratory distress syndrome DM II Hypertension Elevated serum inflammatory markers to include LDH, ferritin and D-dimers Anemia - continue full anticoagulation re: STEMI - daily SAT's & SBT assessment as tolerated - FiO2 dropped to 75% - continue to wean supplemental oxygen for target O2 sat's > 92% acutely - VAP bundle addressed - continue care as below otherwise; - continue bronchodilators with pulmonary hygiene per RT - continue accuchecks with glycemic control per SSI (While critically ill target blood glucose of 140-180 mg/dL; avoid hypoglycemia) - avoid nephrotoxins, renally dose all medications - continue to avoid benzodiazepine's, reduce the possibility of delirium - completed Anti-infective's per ID rec's - prn analgesia per pain score - Maintenance of sleep-wake cycle, avoid delirium - G.I. & VTE prophylaxis - PT/OT/ROM exercises - mobility protocols for pressure ulcer prophylaxis - Monitor hemodynamics closely - continue other care per attending / other consultants COVID SPECIFIC INTERVENTIONS - Remdesivir as per ID/Pulmonary developed protocols (receiving) - continue systemic steroids for severe COVID-19 infection (Decadron) - follow repeat COVID tests results - zinc and vitamin C supplementation - Monitor inflammatory markers per facility protocol - ferritin, Ddimer, CRP - therapeutic anticoagulation per system Protocol based on d-dimer and clinical considerations (VTE Prophylaxis) - Continue contact and airborne isolation .... Re-evaluate in am & prn CONDITION: CRITICAL PROGNOSIS: GUARDED CODE STATUS: FULL CODE The high probability of a clinically significant, sudden or life-threatening deterioration of the [respiratory, cardiovascular & neurologic] system(s) required my full and direct attention, intervention and personal management. The aggregate critical care time was [36] minutes without overlap. Time includes spent on; [x] Data Review and interpretation [x] Patient assessment and monitoring of vital signs [x] Documentation [x] Medication orders and management Subjective Date of service: 12/09/20 Principal diagnosis: Ac hypoxemic resp failure; COVID-19 infection; Pneumonia; ARDS; DM II; HTN Interval history: Patient is seen today for: Acute hypoxemic respiratory failure; COVID-19 infecti on; Pneumonia; ARDS; DM II; HTN Seen and examined at bedside; 24hour events reviewed; nursing and respiratory care staff consulted; no adverse overnight events reported to me; resting in bed; remains with ARDS; FiO2 at 85% with some room to wean; no emesis or overt aspiration; remains on Levophed @ 16 dennise's/min Objective Vital Signs - 12hr 12/08/20 12/09/20 12/09/20 23:46 00:00 00:16 Temperature 98.8 F Pulse Rate 79 90 107 H Respiratory 22 19 18 Rate Blood Pressure 104/45 106/54 106/54 O2 Sat by Pulse 97 96 87 Oximetry 12/09/20 12/09/20 12/09/20 00:30 00:36 00:46 Temperature Pulse Rate 90 81 88 Respiratory 18 19 Rate Blood Pressure 106/54 104/45 106/54 O2 Sat by Pulse 92 97 93 Oximetry 12/09/20 12/09/20 12/09/20 01:00 01:16 01:30 Temperature Pulse Rate 84 81 82 Respiratory 21 20 20 Rate Blood Pressure 118/46 118/46 118/46 O2 Sat by Pulse 97 98 97 Oximetry 12/09/20 12/09/20 12/09/20 01:46 02:00 02:15 Temperature Pulse Rate 80 78 77 Respiratory 20 20 20 Rate Blood Pressure 118/46 103/52 103/52 O2 Sat by Pulse 94 97 96 Oximetry 12/09/20 12/09/20 12/09/20 02:30 02:46 03:00 Temperature Pulse Rate 76 77 75 Respiratory 19 20 20 Rate Blood Pressure 103/52 103/52 113/47 O2 Sat by Pulse 95 96 97 Oximetry 12/09/20 12/09/20 12/09/20 03:16 03:28 03:30 Temperature 98.1 F Pulse Rate 74 73 Respiratory 20 20 Rate Blood Pressure 113/47 113/47 O2 Sat by Pulse 95 97 Oximetry 12/09/20 12/09/20 12/09/20 03:46 04:00 04:16 Temperature Pulse Rate 74 73 73 Respiratory 20 20 20 Rate Blood Pressure 113/47 105/57 105/57 O2 Sat by Pulse 96 96 96 Oximetry 12/09/20 12/09/20 12/09/20 04:30 04:46 05:00 Temperature Pulse Rate 76 75 74 Respiratory 20 20 20 Rate Blood Pressure 105/57 105/57 112/59 O2 Sat by Pulse 90 95 96 Oximetry 12/09/20 12/09/20 12/09/20 05:16 05:17 05:30 Temperature Pulse Rate 73 75 76 Respiratory 20 19 Rate Blood Pressure 112/59 105/57 112/59 O2 Sat by Pulse 96 95 87 Oximetry 12/09/20 12/09/20 12/09/20 05:46 06:00 06:16 Temperature Pulse Rate 75 78 76 Respiratory 20 20 20 Rate Blood Pressure 112/59 112/59 112/59 O2 Sat by Pulse 93 100 Oximetry 12/09/20 12/09/20 12/09/20 06:30 06:46 07:00 Temperature Pulse Rate 72 72 72 Respiratory 20 20 20 Rate Blood Pressure 100/60 100/60 93/42 O2 Sat by Pulse 100 100 100 Oximetry 12/09/20 12/09/20 12/09/20 07:16 07:30 07:46 Temperature Pulse Rate 67 83 84 Respiratory 20 20 20 Rate Blood Pressure 93/42 93/42 93/42 O2 Sat by Pulse 100 100 100 Oximetry 12/09/20 12/09/20 12/09/20 08:00 08:06 08:16 Temperature 98.6 F Pulse Rate 88 94 H 60 Respiratory 20 20 Rate Blood Pressure 92/35 92/35 92/35 O2 Sat by Pulse 99 Oximetry 12/09/20 12/09/20 12/09/20 08:30 08:46 09:00 Temperature Pulse Rate 61 88 64 Respiratory 24 18 24 Rate Blood Pressure 92/35 92/35 92/35 O2 Sat by Pulse Oximetry Constitutional: no acute distress, other (elderly female without increased respiratory effort at rest on MVS) Eyes: non-icteric ENT: oropharynx moist, other (ETT 23 cm JENNIFER) Neck: supple, no lymphadenopathy, no JVD Effort: mildly labored Ascultation: Bilateral: rhonchi (bases) Percussion: Bilateral: not dull Cardiovascular: regular rate and rhythm Gastrointestinal: normoactive bowel sounds, soft, non-tender, non-distended Integumentary: normal Extremities: no cyanosis, no edema, pulses normal, no ischemia or petechiae Neurologic: non-focal exam, pupils equal and round, unable to assess, other (sedated) Psychiatric: other (unable to assess re: AMS) CBC and BMP: 12/08/20 20:15 12/08/20 20:15 ABG, PT/INR, D-dimer: ABG ABG pH 7.338 (7.320-7.450) 12/09/20 08:13 POC ABG pCO2 50.7 mmHg (32.0-48.0) H 12/09/20 08:13 POC ABG pO2 156.4 mmHg (83-108) H 12/09/20 08:13 POC ABG HCO3 26.6 12/09/20 08:13 ABG O2 Saturation 99.1 (0-100) 12/09/20 08:13 PT/INR, D-dimer PT 17.4 Sec. (12.2-14.9) H 12/06/20 18:53 INR 1.37 (0.87-1.13) H 12/06/20 18:53 D-Dimer > 70194 ng/mlDDU (0-234) H 12/08/20 20:15 Abnormal lab findings: Abnormal Labs 12/02/20 12/02/20 12/02/20 03:58 03:58 03:58 WBC RBC 3.57 L Hgb 8.9 L Hct 27.2 L MCV 76 L MCH 25 L RDW 17.6 H Lymph % (Auto) 6.7 L Lymph # (Auto) 0.3 L Seg Neutrophils % 87.7 H Seg Neuts % (Manual) Lymphocytes % (Manual) Seg Neutrophils # Man Lymphocytes # (Manual) PT INR APTT D-Dimer 1559.33 H Heparin Anti-Xa Level ABG pH POC ABG pCO2 POC ABG pO2 ABG Hemoglobin ABG Oxyhemoglobin ABG Sodium ABG Potassium ABG Chloride ABG Glucose Carboxyhemoglobin Sodium 130 L Potassium Chloride 90.0 L BUN 20 H Glucose 346 H POC Glucose Hemoglobin A1c Calcium Phosphorus Magnesium 2.40 H Ferritin AST 43 H Alkaline Phosphatase Lactate Dehydrogenase 582 H Total Creatine Kinase CK-MB (CK-2) CK-MB (CK-2) Rel Index Troponin T C-Reactive Protein 34.20 H NT-Pro-B Natriuret Pep Total Protein Albumin 3.1 L Triglycerides LDL Cholesterol Direct HDL Cholesterol Arterial Blood Glucose Arterial Blood Ionized Calcium Coronavirus (PCR) 12/02/20 12/02/20 12/02/20 03:58 06:15 07:37 WBC RBC Hgb Hct MCV MCH RDW Lymph % (Auto) Lymph # (Auto) Seg Neutrophils % Seg Neuts % (Manual) Lymphocytes % (Manual) Seg Neutrophils # Man Lymphocytes # (Manual) PT INR APTT D-Dimer Heparin Anti-Xa Level ABG pH POC ABG pCO2 POC ABG pO2 ABG Hemoglobin ABG Oxyhemoglobin ABG Sodium ABG Potassium ABG Chloride ABG Glucose Carboxyhemoglobin Sodium Potassium Chloride BUN Glucose POC Glucose 339 H Hemoglobin A1c 9.5 H Calcium Phosphorus Magnesium Ferritin 497.6 H AST Alkaline Phosphatase Lactate Dehydrogenase Total Creatine Kinase CK-MB (CK-2) CK-MB (CK-2) Rel Index Troponin T C-Reactive Protein NT-Pro-B Natriuret Pep Total Protein Albumin Triglycerides LDL Cholesterol Direct HDL Cholesterol Arterial Blood Glucose Arterial Blood Ionized Calcium Coronavirus (PCR) 12/02/20 12/02/20 12/02/20 08:15 11:52 13:29 WBC RBC Hgb 9.7 L Hct MCV MCH RDW Lymph % (Auto) Lymph # (Auto) Seg Neutrophils % Seg Neuts % (Manual) Lymphocytes % (Manual) Seg Neutrophils # Man Lymphocytes # (Manual) PT INR APTT D-Dimer Heparin Anti-Xa Level ABG pH POC ABG pCO2 POC ABG pO2 ABG Hemoglobin ABG Oxyhemoglobin ABG Sodium ABG Potassium ABG Chloride ABG Glucose Carboxyhemoglobin Sodium Potassium Chloride BUN Glucose POC Glucose 305 H Hemoglobin A1c Calcium Phosphorus Magnesium Ferritin AST Alkaline Phosphatase Lactate Dehydrogenase Total Creatine Kinase CK-MB (CK-2) CK-MB (CK-2) Rel Index Troponin T C-Reactive Protein NT-Pro-B Natriuret Pep Total Protein Albumin Triglycerides LDL Cholesterol Direct HDL Cholesterol Arterial Blood Glucose Arterial Blood Ionized Calcium Coronavirus (PCR) Positive A 12/02/20 12/02/20 12/02/20 16:53 22:39 23:39 WBC RBC Hgb Hct MCV MCH RDW Lymph % (Auto) Lymph # (Auto) Seg Neutrophils % Seg Neuts % (Manual) Lymphocytes % (Manual) Seg Neutrophils # Man Lymphocytes # (Manual) PT INR APTT D-Dimer Heparin Anti-Xa Level ABG pH POC ABG pCO2 POC ABG pO2 ABG Hemoglobin ABG Oxyhemoglobin ABG Sodium ABG Potassium ABG Chloride ABG Glucose Carboxyhemoglobin Sodium 131 L Potassium Chloride 93.8 L BUN 22 H Glucose 301 H POC Glucose 281 H 290 H Hemoglobin A1c Calcium Phosphorus Magnesium Ferritin AST Alkaline Phosphatase Lactate Dehydrogenase Total Creatine Kinase CK-MB (CK-2) CK-MB (CK-2) Rel Index Troponin T C-Reactive Protein NT-Pro-B Natriuret Pep Total Protein 6.2 L Albumin 2.8 L Triglycerides LDL Cholesterol Direct HDL Cholesterol Arterial Blood Glucose Arterial Blood Ionized Calcium Coronavirus (PCR) 12/03/20 12/03/20 12/03/20 03:48 03:48 08:59 WBC RBC 3.46 L Hgb 8.6 L Hct 26.5 L MCV 77 L MCH 25 L RDW 18.2 H Lymph % (Auto) Lymph # (Auto) Seg Neutrophils % Seg Neuts % (Manual) 93.0 H Lymphocytes % (Manual) 3.0 L Seg Neutrophils # Man Lymphocytes # (Manual) 0.2 L PT INR APTT D-Dimer Heparin Anti-Xa Level ABG pH POC ABG pCO2 POC ABG pO2 ABG Hemoglobin ABG Oxyhemoglobin ABG Sodium ABG Potassium ABG Chloride ABG Glucose Carboxyhemoglobin Sodium 131 L Potassium Chloride 92.5 L BUN 22 H Glucose 279 H POC Glucose 258 H Hemoglobin A1c Calcium 8.2 L Phosphorus Magnesium Ferritin AST Alkaline Phosphatase Lactate Dehydrogenase Total Creatine Kinase CK-MB (CK-2) CK-MB (CK-2) Rel Index Troponin T C-Reactive Protein NT-Pro-B Natriuret Pep Total Protein 5.6 L Albumin 2.8 L Triglycerides LDL Cholesterol Direct HDL Cholesterol Arterial Blood Glucose Arterial Blood Ionized Calcium Coronavirus (PCR) 12/03/20 12/03/20 12/03/20 12:45 15:57 17:01 WBC RBC Hgb Hct MCV MCH RDW Lymph % (Auto) Lymph # (Auto) Seg Neutrophils % Seg Neuts % (Manual) Lymphocytes % (Manual) Seg Neutrophils # Man Lymphocytes # (Manual) PT INR APTT D-Dimer Heparin Anti-Xa Level ABG pH 7.527 H POC ABG pCO2 POC ABG pO2 50.4 L ABG Hemoglobin ABG Oxyhemoglobin ABG Sodium 129.8 L ABG Potassium ABG Chloride 95.0 L ABG Glucose 394 H Carboxyhemoglobin Sodium Potassium Chloride BUN Glucose POC Glucose 349 H 359 H Hemoglobin A1c Calcium Phosphorus Magnesium Ferritin AST Alkaline Phosphatase Lactate Dehydrogenase Total Creatine Kinase CK-MB (CK-2) CK-MB (CK-2) Rel Index Troponin T C-Reactive Protein NT-Pro-B Natriuret Pep Total Protein Albumin Triglycerides LDL Cholesterol Direct HDL Cholesterol Arterial Blood Glucose 394 H Arterial Blood Ionized Calcium Coronavirus (PCR) 12/03/20 12/04/20 12/04/20 21:16 04:27 06:49 WBC RBC Hgb Hct MCV MCH RDW Lymph % (Auto) Lymph # (Auto) Seg Neutrophils % Seg Neuts % (Manual) Lymphocytes % (Manual) Seg Neutrophils # Man Lymphocytes # (Manual) PT INR APTT D-Dimer Heparin Anti-Xa Level ABG pH 7.530 H POC ABG pCO2 POC ABG pO2 37.6 L ABG Hemoglobin 9.6 L ABG Oxyhemoglobin 72.5 L ABG Sodium 132.3 L ABG Potassium ABG Chloride ABG Glucose 180 H Carboxyhemoglobin 0.4 L Sodium 136 L Potassium Chloride 97.3 L BUN 23 H Glucose 166 H POC Glucose 295 H Hemoglobin A1c Calcium Phosphorus Magnesium Ferritin AST Alkaline Phosphatase Lactate Dehydrogenase Total Creatine Kinase CK-MB (CK-2) CK-MB (CK-2) Rel Index Troponin T C-Reactive Protein NT-Pro-B Natriuret Pep Total Protein 5.7 L Albumin 2.6 L Triglycerides LDL Cholesterol Direct HDL Cholesterol Arterial Blood Glucose 180 H Arterial Blood Ionized Calcium Coronavirus (PCR) 12/04/20 12/04/20 12/04/20 07:49 11:37 16:22 WBC RBC Hgb Hct MCV MCH RDW Lymph % (Auto) Lymph # (Auto) Seg Neutrophils % Seg Neuts % (Manual) Lymphocytes % (Manual) Seg Neutrophils # Man Lymphocytes # (Manual) PT INR APTT D-Dimer Heparin Anti-Xa Level ABG pH POC ABG pCO2 POC ABG pO2 ABG Hemoglobin ABG Oxyhemoglobin ABG Sodium ABG Potassium ABG Chloride ABG Glucose Carboxyhemoglobin Sodium Potassium Chloride BUN Glucose POC Glucose 180 H 213 H 177 H Hemoglobin A1c Calcium Phosphorus Magnesium Ferritin AST Alkaline Phosphatase Lactate Dehydrogenase Total Creatine Kinase CK-MB (CK-2) CK-MB (CK-2) Rel Index Troponin T C-Reactive Protein NT-Pro-B Natriuret Pep Total Protein Albumin Triglycerides LDL Cholesterol Direct HDL Cholesterol Arterial Blood Glucose Arterial Blood Ionized Calcium Coronavirus (PCR) 12/04/20 12/04/20 12/05/20 22:21 23:12 05:16 WBC RBC Hgb Hct MCV MCH RDW Lymph % (Auto) Lymph # (Auto) Seg Neutrophils % Seg Neuts % (Manual) Lymphocytes % (Manual) Seg Neutrophils # Man Lymphocytes # (Manual) PT INR APTT D-Dimer Heparin Anti-Xa Level ABG pH 7.494 H POC ABG pCO2 POC ABG pO2 56.3 L ABG Hemoglobin 8.6 L ABG Oxyhemoglobin 88.3 L ABG Sodium 131.8 L ABG Potassium ABG Chloride ABG Glucose 205 H Carboxyhemoglobin 0.3 L Sodium Potassium Chloride BUN 19 H Glucose 64 L POC Glucose 207 H Hemoglobin A1c Calcium Phosphorus Magnesium Ferritin AST Alkaline Phosphatase Lactate Dehydrogenase Total Creatine Kinase CK-MB (CK-2) CK-MB (CK-2) Rel Index Troponin T C-Reactive Protein NT-Pro-B Natriuret Pep Total Protein 6.0 L Albumin 2.8 L Triglycerides LDL Cholesterol Direct HDL Cholesterol Arterial Blood Glucose 205 H Arterial Blood Ionized Calcium Coronavirus (PCR) 12/05/20 12/05/20 12/05/20 08:01 09:07 12:31 WBC RBC Hgb Hct MCV MCH RDW Lymph % (Auto) Lymph # (Auto) Seg Neutrophils % Seg Neuts % (Manual) Lymphocytes % (Manual) Seg Neutrophils # Man Lymphocytes # (Manual) PT INR APTT D-Dimer Heparin Anti-Xa Level ABG pH POC ABG pCO2 POC ABG pO2 ABG Hemoglobin ABG Oxyhemoglobin ABG Sodium ABG Potassium ABG Chloride ABG Glucose Carboxyhemoglobin Sodium Potassium Chloride BUN Glucose POC Glucose 49 L 157 H 113 H Hemoglobin A1c Calcium Phosphorus Magnesium Ferritin AST Alkaline Phosphatase Lactate Dehydrogenase Total Creatine Kinase CK-MB (CK-2) CK-MB (CK-2) Rel Index Troponin T C-Reactive Protein NT-Pro-B Natriuret Pep Total Protein Albumin Triglycerides LDL Cholesterol Direct HDL Cholesterol Arterial Blood Glucose Arterial Blood Ionized Calcium Coronavirus (PCR) 12/05/20 12/06/20 12/06/20 16:57 07:51 12:07 WBC RBC Hgb Hct MCV MCH RDW Lymph % (Auto) Lymph # (Auto) Seg Neutrophils % Seg Neuts % (Manual) Lymphocytes % (Manual) Seg Neutrophils # Man Lymphocytes # (Manual) PT INR APTT D-Dimer Heparin Anti-Xa Level ABG pH POC ABG pCO2 POC ABG pO2 ABG Hemoglobin ABG Oxyhemoglobin ABG Sodium ABG Potassium ABG Chloride ABG Glucose Carboxyhemoglobin Sodium Potassium Chloride BUN Glucose POC Glucose 223 H 110 H 229 H Hemoglobin A1c Calcium Phosphorus Magnesium Ferritin AST Alkaline Phosphatase Lactate Dehydrogenase Total Creatine Kinase CK-MB (CK-2) CK-MB (CK-2) Rel Index Troponin T C-Reactive Protein NT-Pro-B Natriuret Pep Total Protein Albumin Triglycerides LDL Cholesterol Direct HDL Cholesterol Arterial Blood Glucose Arterial Blood Ionized Calcium Coronavirus (PCR) 12/06/20 12/06/20 12/06/20 14:56 16:00 18:53 WBC RBC Hgb 9.6 L Hct MCV MCH RDW Lymph % (Auto) Lymph # (Auto) Seg Neutrophils % Seg Neuts % (Manual) Lymphocytes % (Manual) Seg Neutrophils # Man Lymphocytes # (Manual) PT INR APTT D-Dimer > 19242 H Heparin Anti-Xa Level ABG pH POC ABG pCO2 POC ABG pO2 ABG Hemoglobin ABG Oxyhemoglobin ABG Sodium ABG Potassium ABG Chloride ABG Glucose Carboxyhemoglobin Sodium Potassium Chloride BUN Glucose POC Glucose 235 H Hemoglobin A1c Calcium Phosphorus Magnesium Ferritin AST Alkaline Phosphatase Lactate Dehydrogenase Total Creatine Kinase CK-MB (CK-2) CK-MB (CK-2) Rel Index Troponin T C-Reactive Protein NT-Pro-B Natriuret Pep Total Protein Albumin Triglycerides LDL Cholesterol Direct HDL Cholesterol Arterial Blood Glucose Arterial Blood Ionized Calcium Coronavirus (PCR) 12/06/20 12/06/20 12/07/20 18:53 23:15 07:03 WBC RBC Hgb Hct MCV MCH RDW Lymph % (Auto) Lymph # (Auto) Seg Neutrophils % Seg Neuts % (Manual) Lymphocytes % (Manual) Seg Neutrophils # Man Lymphocytes # (Manual) PT 17.4 H INR 1.37 H APTT D-Dimer Heparin Anti-Xa Level ABG pH POC ABG pCO2 POC ABG pO2 ABG Hemoglobin ABG Oxyhemoglobin ABG Sodium ABG Potassium ABG Chloride ABG Glucose Carboxyhemoglobin Sodium Potassium Chloride BUN 23 H Glucose 62 L POC Glucose 170 H Hemoglobin A1c Calcium Phosphorus Magnesium Ferritin AST Alkaline Phosphatase Lactate Dehydrogenase Total Creatine Kinase CK-MB (CK-2) CK-MB (CK-2) Rel Index Troponin T C-Reactive Protein NT-Pro-B Natriuret Pep Total Protein Albumin Triglycerides LDL Cholesterol Direct HDL Cholesterol Arterial Blood Glucose Arterial Blood Ionized Calcium Coronavirus (PCR) 12/07/20 12/07/20 12/07/20 07:03 07:28 17:45 WBC RBC Hgb Hct MCV MCH RDW Lymph % (Auto) Lymph # (Auto) Seg Neutrophils % Seg Neuts % (Manual) Lymphocytes % (Manual) Seg Neutrophils # Man Lymphocytes # (Manual) PT INR APTT D-Dimer Heparin Anti-Xa Level 0.85 H ABG pH POC ABG pCO2 POC ABG pO2 ABG Hemoglobin ABG Oxyhemoglobin ABG Sodium ABG Potassium ABG Chloride ABG Glucose Carboxyhemoglobin Sodium Potassium Chloride BUN Glucose POC Glucose 54 L 196 H Hemoglobin A1c Calcium Phosphorus Magnesium Ferritin AST Alkaline Phosphatase Lactate Dehydrogenase Total Creatine Kinase CK-MB (CK-2) CK-MB (CK-2) Rel Index Troponin T C-Reactive Protein NT-Pro-B Natriuret Pep Total Protein Albumin Triglycerides LDL Cholesterol Direct HDL Cholesterol Arterial Blood Glucose Arterial Blood Ionized Calcium Coronavirus (PCR) 12/07/20 12/08/20 12/08/20 21:26 13:11 13:25 WBC RBC Hgb Hct MCV MCH RDW Lymph % (Auto) Lymph # (Auto) Seg Neutrophils % Seg Neuts % (Manual) Lymphocytes % (Manual) Seg Neutrophils # Man Lymphocytes # (Manual) PT INR APTT D-Dimer Heparin Anti-Xa Level ABG pH POC ABG pCO2 POC ABG pO2 ABG Hemoglobin ABG Oxyhemoglobin ABG Sodium ABG Potassium ABG Chloride ABG Glucose Carboxyhemoglobin Sodium Potassium Chloride BUN Glucose POC Glucose 165 H 62 L Hemoglobin A1c Calcium Phosphorus Magnesium Ferritin AST Alkaline Phosphatase Lactate Dehydrogenase Total Creatine Kinase 520 H CK-MB (CK-2) 33.2 H CK-MB (CK-2) Rel Index 6.3 H Troponin T 0.646 H* C-Reactive Protein NT-Pro-B Natriuret Pep Total Protein Albumin Triglycerides 181 H LDL Cholesterol Direct 30 L HDL Cholesterol 35 L Arterial Blood Glucose Arterial Blood Ionized Calcium Coronavirus (PCR) 12/08/20 12/08/20 12/08/20 15:36 18:05 20:15 WBC RBC Hgb Hct MCV MCH RDW Lymph % (Auto) Lymph # (Auto) Seg Neutrophils % Seg Neuts % (Manual) Lymphocytes % (Manual) Seg Neutrophils # Man Lymphocytes # (Manual) PT INR APTT D-Dimer Heparin Anti-Xa Level ABG pH 7.117 L POC ABG pCO2 61.7 H POC ABG pO2 39.7 L ABG Hemoglobin 9.0 L ABG Oxyhemoglobin 46.0 L ABG Sodium 135.7 L ABG Potassium 4.6 H ABG Chloride ABG Glucose 235 H Carboxyhemoglobin Sodium Potassium Chloride BUN Glucose POC Glucose 163 H Hemoglobin A1c Calcium Phosphorus Magnesium Ferritin AST Alkaline Phosphatase Lactate Dehydrogenase Total Creatine Kinase 521 H CK-MB (CK-2) 31.5 H CK-MB (CK-2) Rel Index 6.0 H Troponin T 0.648 H* C-Reactive Protein NT-Pro-B Natriuret Pep 1573 H Total Protein Albumin Triglycerides LDL Cholesterol Direct HDL Cholesterol Arterial Blood Glucose 235 H Arterial Blood Ionized Calcium Coronavirus (PCR) 12/08/20 12/08/20 12/08/20 20:15 20:15 20:15 WBC 24.0 H RBC 3.35 L Hgb 8.1 L Hct 26.0 L D MCV 78 L MCH 24 L RDW 18.5 H Lymph % (Auto) Lymph # (Auto) Seg Neutrophils % Seg Neuts % (Manual) 91.0 H Lymphocytes % (Manual) 5.0 L Seg Neutrophils # Man 21.8 H Lymphocytes # (Manual) PT INR APTT 62.9 H* D-Dimer > 62278 H Heparin Anti-Xa Level ABG pH POC ABG pCO2 POC ABG pO2 ABG Hemoglobin ABG Oxyhemoglobin ABG Sodium ABG Potassium ABG Chloride ABG Glucose Carboxyhemoglobin Sodium Potassium 5.1 H D Chloride BUN 27 H Glucose 186 H POC Glucose Hemoglobin A1c Calcium 7.8 L Phosphorus 5.50 H Magnesium 2.40 H Ferritin AST 126 H Alkaline Phosphatase 298 H Lactate Dehydrogenase 2677 H Total Creatine Kinase CK-MB (CK-2) CK-MB (CK-2) Rel Index Troponin T C-Reactive Protein NT-Pro-B Natriuret Pep Total Protein 4.9 L Albumin 2.6 L Triglycerides LDL Cholesterol Direct HDL Cholesterol Arterial Blood Glucose Arterial Blood Ionized Calcium Coronavirus (PCR) 12/08/20 12/08/20 12/09/20 21:00 22:03 06:00 WBC RBC Hgb Hct MCV MCH RDW Lymph % (Auto) Lymph # (Auto) Seg Neutrophils % Seg Neuts % (Manual) Lymphocytes % (Manual) Seg Neutrophils # Man Lymphocytes # (Manual) PT INR APTT D-Dimer Heparin Anti-Xa Level 0.85 H ABG pH 7.318 L POC ABG pCO2 51.9 H POC ABG pO2 74.6 L ABG Hemoglobin 8.9 L ABG Oxyhemoglobin 90.8 L ABG Sodium ABG Potassium 4.9 H ABG Chloride ABG Glucose 141 H Carboxyhemoglobin Sodium Potassium Chloride BUN Glucose POC Glucose 163 H Hemoglobin A1c Calcium Phosphorus Magnesium Ferritin AST Alkaline Phosphatase Lactate Dehydrogenase Total Creatine Kinase CK-MB (CK-2) CK-MB (CK-2) Rel Index Troponin T C-Reactive Protein NT-Pro-B Natriuret Pep Total Protein Albumin Triglycerides LDL Cholesterol Direct HDL Cholesterol Arterial Blood Glucose 141 H Arterial Blood Ionized Calcium 4.5 L Coronavirus (PCR) 12/09/20 08:13 WBC RBC Hgb Hct MCV MCH RDW Lymph % (Auto) Lymph # (Auto) Seg Neutrophils % Seg Neuts % (Manual) Lymphocytes % (Manual) Seg Neutrophils # Man Lymphocytes # (Manual) PT INR APTT D-Dimer Heparin Anti-Xa Level ABG pH POC ABG pCO2 50.7 H POC ABG pO2 156.4 H ABG Hemoglobin 8.7 L ABG Oxyhemoglobin ABG Sodium 134.9 L ABG Potassium 5.4 H ABG Chloride ABG Glucose 140 H Carboxyhemoglobin Sodium Potassium Chloride BUN Glucose POC Glucose Hemoglobin A1c Calcium Phosphorus Magnesium Ferritin AST Alkaline Phosphatase Lactate Dehydrogenase Total Creatine Kinase CK-MB (CK-2) CK-MB (CK-2) Rel Index Troponin T C-Reactive Protein NT-Pro-B Natriuret Pep Total Protein Albumin Triglycerides LDL Cholesterol Direct HDL Cholesterol Arterial Blood Glucose 140 H Arterial Blood Ionized Calcium 4.2 L Coronavirus (PCR) Chest x-ray: image reviewed (ETT in good position) Allied health notes reviewed: nursing
--- NOTE | 2020-12-09 12:41 | Progress Note ---
Assessment and Plan Cultures: SARS CoV2 PCR: Positive 12/02/2020 blood culture: no growth A/P: 65-year-old female with diabetes, hypertension admitted with: #Shock, multifactorial, probably due to severe COVID, ?cardiogenic. No clear bacterial infection identified. #Bilateral pneumonia: Secondary to COVID-19. Severe disease. #Acute hypoxic respiratory failure: Secondary to above. Failed BiPAP, now on the vent. #Diabetes mellitus, uncontrolled: HbA1c 9.5 #ST elevation [place]: Cardiology on board. Recs: -continue steroids, at least 10 days -Status post 5 days of remdesivir, s/p Actemra -Leukocytosis has worsened, had just completed antibiotics, now on pressors, cefepime and vancomycin added -cardiology on board. on full anticoag -Prognosis is extremely poor Carl Goldstein MD, FACP [facility] O: [phone] F: [phone] Subjective Date of service: 12/09/20 Principal diagnosis: Ac hypoxemic resp failure; COVID-19 infection; Pneumonia; ARDS; DM II; HTN Interval history: Moved to ICU, now intubated. She is also on pressors. Afebrile. Objective - Exam Narrative Exam: Physical Exam (reviewed in chart to minimize risk of transmission) Constitutional: deferred Head, Ears, Nose: deferred Eyes: deferred Neck: deferred Oral: deferred Cardiovascular: deferred Respiratory: deferred GI: deferred Musculoskeletal: deferred Skin: deferred Hem/Lymphatic: deferred Psych: deferred Neurological: deferred - Constitutional Vitals: Vital Signs Temp Pulse Resp BP Pulse Ox 98.6 F 61 24 92/35 99 12/09/20 12:00 12/09/20 11:46 12/09/20 11:46 12/09/20 11:46 12/09/20 11:46 Temperature -Last 24 Hours Temperature 98.6 F Temperature 98.6 F Temperature 98.1 F Temperature 98.8 F Temperature 99.0 F Temperature 99.1 F - Labs CBC & Chem 7: 12/08/20 20:15 12/08/20 20:15 Labs: Abnormal lab results 12/08/20 12/08/20 12/08/20 Range/Units 13:11 13:25 15:36 WBC (4.5-11.0) K/mm3 RBC (3.65-5.03) M/mm3 Hgb (10.1-14.3) gm/dl Hct (30.3-42.9) % MCV (79-97) fl MCH (28-32) pg RDW (13.2-15.2) % Seg Neuts % (Manual) (40.0-70.0) % Lymphocytes % (Manual) (13.4-35.0) % Seg Neutrophils # Man (1.8-7.7) K/mm3 APTT (24.2-36.6) Sec. D-Dimer (0-234) ng/mlDDU Heparin Anti-Xa Level (0.3-0.7) U.I./ml ABG pH 7.117 L (7.320-7.450) POC ABG pCO2 61.7 H (32.0-48.0) mmHg POC ABG pO2 39.7 L (83-108) mmHg ABG Hemoglobin 9.0 L (12.0-17.5) ABG Oxyhemoglobin 46.0 L (94-98) ABG Sodium 135.7 L (136.0-145.0) mmol/L ABG Potassium 4.6 H (3.40-4.50) mmol/L ABG Glucose 235 H (65-95) mg/dL Potassium (3.6-5.0) mmol/L BUN (7-17) mg/dL Glucose (65-100) mg/dL POC Glucose 62 L (70-105) mg/dL Calcium (8.4-10.2) mg/dL Phosphorus (2.5-4.5) mg/dL Magnesium (1.7-2.3) mg/dL AST (5-40) units/L Alkaline Phosphatase (35-129) units/L Lactate Dehydrogenase (91-180) units/L Total Creatine Kinase 520 H (30-135) units/L CK-MB (CK-2) 33.2 H (0.0-4.0) ng/mL CK-MB (CK-2) Rel Index 6.3 H (0-4) Troponin T 0.646 H* (0.00-0.029) ng/mL NT-Pro-B Natriuret Pep (0-900) pg/mL Total Protein (6.3-8.2) g/dL Albumin (3.9-5) g/dL Triglycerides 181 H (2-149) mg/dL LDL Cholesterol Direct 30 L (50-130) mg/dL HDL Cholesterol 35 L (40-59) mg/dL Arterial Blood Glucose 235 H (65-95) mg/dL Arterial Blood Ionized Calcium (4.6-5.3) mg/dL 12/08/20 12/08/20 12/08/20 Range/Units 18:05 20:15 20:15 WBC 24.0 H (4.5-11.0) K/mm3 RBC 3.35 L (3.65-5.03) M/mm3 Hgb 8.1 L (10.1-14.3) gm/dl Hct 26.0 L D (30.3-42.9) % MCV 78 L (79-97) fl MCH 24 L (28-32) pg RDW 18.5 H (13.2-15.2) % Seg Neuts % (Manual) 91.0 H (40.0-70.0) % Lymphocytes % (Manual) 5.0 L (13.4-35.0) % Seg Neutrophils # Man 21.8 H (1.8-7.7) K/mm3 APTT (24.2-36.6) Sec. D-Dimer (0-234) ng/mlDDU Heparin Anti-Xa Level (0.3-0.7) U.I./ml ABG pH (7.320-7.450) POC ABG pCO2 (32.0-48.0) mmHg POC ABG pO2 (83-108) mmHg ABG Hemoglobin (12.0-17.5) ABG Oxyhemoglobin (94-98) ABG Sodium (136.0-145.0) mmol/L ABG Potassium (3.40-4.50) mmol/L ABG Glucose (65-95) mg/dL Potassium (3.6-5.0) mmol/L BUN (7-17) mg/dL Glucose (65-100) mg/dL POC Glucose 163 H (70-105) mg/dL Calcium (8.4-10.2) mg/dL Phosphorus (2.5-4.5) mg/dL Magnesium (1.7-2.3) mg/dL AST (5-40) units/L Alkaline Phosphatase (35-129) units/L Lactate Dehydrogenase (91-180) units/L Total Creatine Kinase 521 H (30-135) units/L CK-MB (CK-2) 31.5 H (0.0-4.0) ng/mL CK-MB (CK-2) Rel Index 6.0 H (0-4) Troponin T 0.648 H* (0.00-0.029) ng/mL NT-Pro-B Natriuret Pep 1573 H (0-900) pg/mL Total Protein (6.3-8.2) g/dL Albumin (3.9-5) g/dL Triglycerides (2-149) mg/dL LDL Cholesterol Direct (50-130) mg/dL HDL Cholesterol (40-59) mg/dL Arterial Blood Glucose (65-95) mg/dL Arterial Blood Ionized Calcium (4.6-5.3) mg/dL 12/08/20 12/08/20 12/08/20 Range/Units 20:15 20:15 21:00 WBC (4.5-11.0) K/mm3 RBC (3.65-5.03) M/mm3 Hgb (10.1-14.3) gm/dl Hct (30.3-42.9) % MCV (79-97) fl MCH (28-32) pg RDW (13.2-15.2) % Seg Neuts % (Manual) (40.0-70.0) % Lymphocytes % (Manual) (13.4-35.0) % Seg Neutrophils # Man (1.8-7.7) K/mm3 APTT 62.9 H* (24.2-36.6) Sec. D-Dimer > 41623 H (0-234) ng/mlDDU Heparin Anti-Xa Level (0.3-0.7) U.I./ml ABG pH 7.318 L (7.320-7.450) POC ABG pCO2 51.9 H (32.0-48.0) mmHg POC ABG pO2 74.6 L (83-108) mmHg ABG Hemoglobin 8.9 L (12.0-17.5) ABG Oxyhemoglobin 90.8 L (94-98) ABG Sodium (136.0-145.0) mmol/L ABG Potassium 4.9 H (3.40-4.50) mmol/L ABG Glucose 141 H (65-95) mg/dL Potassium 5.1 H D (3.6-5.0) mmol/L BUN 27 H (7-17) mg/dL Glucose 186 H (65-100) mg/dL POC Glucose (70-105) mg/dL Calcium 7.8 L (8.4-10.2) mg/dL Phosphorus 5.50 H (2.5-4.5) mg/dL Magnesium 2.40 H (1.7-2.3) mg/dL AST 126 H (5-40) units/L Alkaline Phosphatase 298 H (35-129) units/L Lactate Dehydrogenase 2677 H (91-180) units/L Total Creatine Kinase (30-135) units/L CK-MB (CK-2) (0.0-4.0) ng/mL CK-MB (CK-2) Rel Index (0-4) Troponin T (0.00-0.029) ng/mL NT-Pro-B Natriuret Pep (0-900) pg/mL Total Protein 4.9 L (6.3-8.2) g/dL Albumin 2.6 L (3.9-5) g/dL Triglycerides (2-149) mg/dL LDL Cholesterol Direct (50-130) mg/dL HDL Cholesterol (40-59) mg/dL Arterial Blood Glucose 141 H (65-95) mg/dL Arterial Blood Ionized Calcium 4.5 L (4.6-5.3) mg/dL 12/08/20 12/09/20 12/09/20 Range/Units 22:03 06:00 08:13 WBC (4.5-11.0) K/mm3 RBC (3.65-5.03) M/mm3 Hgb (10.1-14.3) gm/dl Hct (30.3-42.9) % MCV (79-97) fl MCH (28-32) pg RDW (13.2-15.2) % Seg Neuts % (Manual) (40.0-70.0) % Lymphocytes % (Manual) (13.4-35.0) % Seg Neutrophils # Man (1.8-7.7) K/mm3 APTT (24.2-36.6) Sec. D-Dimer (0-234) ng/mlDDU Heparin Anti-Xa Level 0.85 H (0.3-0.7) U.I./ml ABG pH (7.320-7.450) POC ABG pCO2 50.7 H (32.0-48.0) mmHg POC ABG pO2 156.4 H (83-108) mmHg ABG Hemoglobin 8.7 L (12.0-17.5) ABG Oxyhemoglobin (94-98) ABG Sodium 134.9 L (136.0-145.0) mmol/L ABG Potassium 5.4 H (3.40-4.50) mmol/L ABG Glucose 140 H (65-95) mg/dL Potassium (3.6-5.0) mmol/L BUN (7-17) mg/dL Glucose (65-100) mg/dL POC Glucose 163 H (70-105) mg/dL Calcium (8.4-10.2) mg/dL Phosphorus (2.5-4.5) mg/dL Magnesium (1.7-2.3) mg/dL AST (5-40) units/L Alkaline Phosphatase (35-129) units/L Lactate Dehydrogenase (91-180) units/L Total Creatine Kinase (30-135) units/L CK-MB (CK-2) (0.0-4.0) ng/mL CK-MB (CK-2) Rel Index (0-4) Troponin T (0.00-0.029) ng/mL NT-Pro-B Natriuret Pep (0-900) pg/mL Total Protein (6.3-8.2) g/dL Albumin (3.9-5) g/dL Triglycerides (2-149) mg/dL LDL Cholesterol Direct (50-130) mg/dL HDL Cholesterol (40-59) mg/dL Arterial Blood Glucose 140 H (65-95) mg/dL Arterial Blood Ionized Calcium 4.2 L (4.6-5.3) mg/dL 12/09/20 Range/Units 11:53 WBC (4.5-11.0) K/mm3 RBC (3.65-5.03) M/mm3 Hgb (10.1-14.3) gm/dl Hct (30.3-42.9) % MCV (79-97) fl MCH (28-32) pg RDW (13.2-15.2) % Seg Neuts % (Manual) (40.0-70.0) % Lymphocytes % (Manual) (13.4-35.0) % Seg Neutrophils # Man (1.8-7.7) K/mm3 APTT (24.2-36.6) Sec. D-Dimer (0-234) ng/mlDDU Heparin Anti-Xa Level (0.3-0.7) U.I./ml ABG pH (7.320-7.450) POC ABG pCO2 (32.0-48.0) mmHg POC ABG pO2 (83-108) mmHg ABG Hemoglobin (12.0-17.5) ABG Oxyhemoglobin (94-98) ABG Sodium (136.0-145.0) mmol/L ABG Potassium (3.40-4.50) mmol/L ABG Glucose (65-95) mg/dL Potassium (3.6-5.0) mmol/L BUN (7-17) mg/dL Glucose (65-100) mg/dL POC Glucose 127 H (70-105) mg/dL Calcium (8.4-10.2) mg/dL Phosphorus (2.5-4.5) mg/dL Magnesium (1.7-2.3) mg/dL AST (5-40) units/L Alkaline Phosphatase (35-129) units/L Lactate Dehydrogenase (91-180) units/L Total Creatine Kinase (30-135) units/L CK-MB (CK-2) (0.0-4.0) ng/mL CK-MB (CK-2) Rel Index (0-4) Troponin T (0.00-0.029) ng/mL NT-Pro-B Natriuret Pep (0-900) pg/mL Total Protein (6.3-8.2) g/dL Albumin (3.9-5) g/dL Triglycerides (2-149) mg/dL LDL Cholesterol Direct (50-130) mg/dL HDL Cholesterol (40-59) mg/dL Arterial Blood Glucose (65-95) mg/dL Arterial Blood Ionized Calcium (4.6-5.3) mg/dL
[2020-12-09] MEDS ORDERED: VANCOMYCIN 1,000 MG in SODIUM CHLORIDE 0.9% 500 ML 500 ML IV ONE (12:43)
[2020-12-09] MEDS ORDERED: VANCOMYCIN PHARMACY TO DOSE IV SCH (13:00)
[2020-12-09 13:37] LABS: Hematocrit 26.2 % (30.3-42.9); Hemoglobin 8.3 gm/dl (10.1-14.3); Mean Corpuscular HGB Conc 32 % (30-34); Mean Corpuscular Volume 78 fl (79-97); Platelet Count 248 K/mm3 (140-440); Red Blood Count 3.35 M/mm3 (3.65-5.03); Red Cell Distribution Width 19.5 % (13.2-15.2)
[2020-12-09] MEDS: INSULIN LISPRO 100 UNIT/ML SUB-Q SCH ×3 (13:39→19:22)
[2020-12-09] MEDS: CEFEPIME/NS 2 GM/100 ML 2 GM/100 ML BAG IV SCH (13:40)
[2020-12-09 13:50] LABS: INR 1.15 (0.87-1.13)
[2020-12-09 13:51] LABS: C-Reactive Protein 8.7 mg/dL (0.00-1.30)
[2020-12-09 13:53] LABS: Albumin 2.7 g/dL (3.9-5); Calcium 8.1 mg/dL (8.4-10.2)
[2020-12-09] MEDS: METOPROLOL TARTRATE 50 MG TAB PO SCH (14:02)
[2020-12-09] MEDS: PANTOPRAZOLE 40 MG TAB PO SCH (14:02)
[2020-12-09 14:17] LABS: Partial Thromboplastin Time 84.5 Sec. (24.2-36.6)
[2020-12-09] MEDS ORDERED: VANCOMYCIN 1,500 MG in SODIUM CHLORIDE 0.9% 500 ML 500 ML IV ONE (14:30)
[2020-12-09] MEDS: CHOLECALCIFEROL (VIT D3) 5,000 UNIT TAB PO SCH (15:26)
[2020-12-09] MEDS: HEPARIN/ 0.45% NACL DRIP 25,000 UNIT/500 ML BAG IV SCH (18:03)
[2020-12-09] MEDS: INSULIN GLARGINE 100 UNITS/ML SUB-Q SCH (23:09)
[2020-12-10] MEDS: INSULIN LISPRO 100 UNIT/ML SUB-Q SCH ×4 (00:03→17:47)
[2020-12-10] MEDS: CEFEPIME/NS 2 GM/100 ML 2 GM/100 ML BAG IV SCH ×2 (00:59→14:52)
--- NOTE | 2020-12-10 02:16 | XRay Report ---
CHEST 1 VIEW INDICATION / CLINICAL INFORMATION: follow up respiratory failure. FINDINGS: SUPPORT DEVICES: No significant change in position. HEART / MEDIASTINUM: The cardiomediastinal silhouette has not significantly changed in the interim. LUNGS / PLEURA: Severe bilateral airspace disease unchanged from yesterday's exam. Signer Name: Chapin Ramirez MD Signed: 12/10/2020 2:12 AM Workstation Name: [id number]
[2020-12-10 03:05] LABS: Hematocrit 21.7 % (30.3-42.9); Hemoglobin 6.7 gm/dl (10.1-14.3); Mean Corpuscular HGB Conc 31 % (30-34); Mean Corpuscular Volume 79 fl (79-97); Platelet Count 269 K/mm3 (140-440); Red Blood Count 2.76 M/mm3 (3.65-5.03); Red Cell Distribution Width 19.3 % (13.2-15.2)
[2020-12-10] MEDS ORDERED: SODIUM CHLORIDE 0.9% 500 ML 500 ML IV ONE ×2 (03:29→04:31)
--- NOTE | 2020-12-10 03:38 | Event Note ---
Date: 12/10/20 Patient is bleeding from the mouth. We hold the heparin drip for the time being. Protonix 40 mg IV every 12 hours. Consult GI. Hemoglobin is 6.7. We are giving 1 unit of packed red blood cells and 1 unit of fresh frozen plasma. Recheck CBC in the morning. We will monitor the patient closely
[2020-12-10 03:46] LABS: Anisocytosis 1+; Band Neutrophils # (Manual) 0.4 K/mm3; Hypochromasia 1+; Large Platelets Few; Platelet Estimate Consistent w Auto; Tear Drop Cells Few; Total Cells Counted 100
[2020-12-10] MEDS: fentaNYL DRIP Premix 2,000 MCG/100 ML BAG IV SCH ×3 (04:03→18:03)
[2020-12-10] MEDS: VASOPRESSIN 20 UNIT in SODIUM CHLORIDE 0.9% 100 ML IV SCH ×2 (04:04→16:36)
[2020-12-10] MEDS: NORepinephrine/NS 8 MG-250 ML 8 MG/250 ML INFUS..BTL IV SCH ×3 (04:36→14:57)
[2020-12-10] MEDS: NITROGLYCERIN 2% OINT 1 GM TP SCH ×4 (05:35→17:49)
[2020-12-10 08:35] LABS: Calcium 7.9 mg/dL (8.4-10.2)
[2020-12-10] MEDS: CHOLECALCIFEROL (VIT D3) 5,000 UNIT TAB PO SCH (10:36)
[2020-12-10] MEDS: PANTOPRAZOLE 40 MG INJ IV SCH ×2 (10:36→21:20)
[2020-12-10] MEDS: CLOPIDOGREL 75 MG TAB PO SCH (10:36)
[2020-12-10] MEDS: dexAMETHasone 4 MG/ML VIAL IV SCH (10:36)
[2020-12-10] MEDS: ASPIRIN 81 MG TAB CHEW PO SCH (10:36)
[2020-12-10] MEDS: SENNOSIDES/DOCUSATE SODIUM 8.6/50 MG TAB FEEDTUBE SCH ×2 (10:36→21:19)
[2020-12-10] MEDS: ASCORBIC ACID 500 MG TAB PO SCH ×2 (10:36→21:20)
[2020-12-10] MEDS: DOCUSATE SODIUM 100 MG CAP PO SCH ×2 (10:37→21:20)
[2020-12-10] MEDS: ZINC SULFATE 220 MG CAP PO SCH (10:37)
--- NOTE | 2020-12-10 10:45 | Progress Note ---
Assessment and Plan Cultures: SARS CoV2 PCR: Positive 12/02/2020 blood culture: no growth A/P: 65-year-old female with diabetes, hypertension admitted with: #Shock, multifactorial, probably due to severe COVID, ?cardiogenic. No clear bacterial infection identified. #Bilateral pneumonia: Secondary to COVID-19. Severe disease. #Acute hypoxic respiratory failure: Secondary to above. Failed BiPAP, now on the vent. #Diabetes mellitus, uncontrolled: HbA1c 9.5 #ST elevation [place]: Cardiology on board. #Bleeding, anemia Recs: -continue steroids, at least 10 days -Status post 5 days of remdesivir, s/p Actemra -continue cefepime and vancomycin x 5 days, D2 -oral bleeding, heparin turned off -Prognosis is extremely poor Carl Goldstein MD, FACP [facility] O: [phone] F: [phone] Subjective Date of service: 12/10/20 Principal diagnosis: Ac hypoxemic resp failure; COVID-19 infection; Pneumonia; ARDS; DM II; HTN Interval history: No fever. Remains on the vent, 75% FiO2, 14 of PEEP. Remains on 2 pressors. Bleeding issues, heparin off. Objective - Exam Narrative Exam: Physical Exam (reviewed in chart to minimize risk of transmission) Constitutional: deferred Head, Ears, Nose: deferred Eyes: deferred Neck: deferred Oral: deferred Cardiovascular: deferred Respiratory: deferred GI: deferred Musculoskeletal: deferred Skin: deferred Hem/Lymphatic: deferred Psych: deferred Neurological: deferred - Constitutional Vitals: Vital Signs Temp Pulse Resp BP Pulse Ox 99 F 70 24 141/62 100 12/10/20 10:25 12/10/20 10:25 12/10/20 10:25 12/10/20 10:25 12/10/20 10:25 Temperature -Last 24 Hours Temperature 99 F Temperature 98.6 F Temperature 98.6 F Temperature 98.6 F Temperature 98.6 F Temperature 98.6 F Temperature 98.6 F Temperature 98.6 F Temperature 98.6 F Temperature 98.8 F Temperature 98.8 F Temperature 98.8 F Temperature 98.8 F Temperature 98.1 F Temperature 97.9 F Temperature 97.4 F Temperature 97.4 F Temperature 98.1 F Temperature 98.6 F - Labs CBC & Chem 7: 12/10/20 02:39 12/10/20 07:43 Labs: Abnormal lab results 12/09/20 12/09/20 12/09/20 Range/Units 11:53 13:08 13:08 WBC 20.8 H (4.5-11.0) K/mm3 RBC 3.35 L (3.65-5.03) M/mm3 Hgb 8.3 L (10.1-14.3) gm/dl Hct 26.2 L (30.3-42.9) % MCV 78 L (79-97) fl MCH 25 L (28-32) pg RDW 19.5 H (13.2-15.2) % Seg Neuts % (Manual) (40.0-70.0) % Lymphocytes % (Manual) (13.4-35.0) % Nucleated RBC % (0.0-0.9) % Seg Neutrophils # Man (1.8-7.7) K/mm3 Lymphocytes # (Manual) (1.2-5.4) K/mm3 PT (12.2-14.9) Sec. INR (0.87-1.13) APTT (24.2-36.6) Sec. D-Dimer (0-234) ng/mlDDU Heparin Anti-Xa Level 0.94 H (0.3-0.7) U.I./ml ABG Hemoglobin (12.0-17.5) ABG Oxyhemoglobin (94-98) ABG Chloride (98-107) mmol/L ABG Glucose (65-95) mg/dL BUN (7-17) mg/dL Creatinine (0.6-1.2) mg/dL Glucose (65-100) mg/dL POC Glucose 127 H (70-105) mg/dL Lactic Acid (0.7-2.0) mmol/L Calcium (8.4-10.2) mg/dL Phosphorus (2.5-4.5) mg/dL Magnesium (1.7-2.3) mg/dL Ferritin (10.0-200.0) ng/mL AST (5-40) units/L Alkaline Phosphatase (35-129) units/L Lactate Dehydrogenase (91-180) units/L Troponin T (0.00-0.029) ng/mL C-Reactive Protein (0.00-1.30) mg/dL NT-Pro-B Natriuret Pep (0-900) pg/mL Total Protein (6.3-8.2) g/dL Albumin (3.9-5) g/dL Arterial Blood Glucose (65-95) mg/dL Arterial Blood Ionized Calcium (4.6-5.3) mg/dL Crossmatch 12/09/20 12/09/20 12/09/20 Range/Units 13:08 13:08 13:08 WBC (4.5-11.0) K/mm3 RBC (3.65-5.03) M/mm3 Hgb (10.1-14.3) gm/dl Hct (30.3-42.9) % MCV (79-97) fl MCH (28-32) pg RDW (13.2-15.2) % Seg Neuts % (Manual) (40.0-70.0) % Lymphocytes % (Manual) (13.4-35.0) % Nucleated RBC % (0.0-0.9) % Seg Neutrophils # Man (1.8-7.7) K/mm3 Lymphocytes # (Manual) (1.2-5.4) K/mm3 PT 15.2 H (12.2-14.9) Sec. INR 1.15 H (0.87-1.13) APTT 84.5 H* (24.2-36.6) Sec. D-Dimer 4051.67 H (0-234) ng/mlDDU Heparin Anti-Xa Level (0.3-0.7) U.I./ml ABG Hemoglobin (12.0-17.5) ABG Oxyhemoglobin (94-98) ABG Chloride (98-107) mmol/L ABG Glucose (65-95) mg/dL BUN 34 H (7-17) mg/dL Creatinine 1.4 H (0.6-1.2) mg/dL Glucose 156 H (65-100) mg/dL POC Glucose (70-105) mg/dL Lactic Acid 2.50 H* (0.7-2.0) mmol/L Calcium 8.1 L (8.4-10.2) mg/dL Phosphorus (2.5-4.5) mg/dL Magnesium (1.7-2.3) mg/dL Ferritin (10.0-200.0) ng/mL AST 97 H (5-40) units/L Alkaline Phosphatase 241 H (35-129) units/L Lactate Dehydrogenase (91-180) units/L Troponin T (0.00-0.029) ng/mL C-Reactive Protein (0.00-1.30) mg/dL NT-Pro-B Natriuret Pep (0-900) pg/mL Total Protein 5.2 L (6.3-8.2) g/dL Albumin 2.7 L (3.9-5) g/dL Arterial Blood Glucose (65-95) mg/dL Arterial Blood Ionized Calcium (4.6-5.3) mg/dL Crossmatch 12/09/20 12/09/20 12/09/20 Range/Units 13:08 13:08 13:08 WBC (4.5-11.0) K/mm3 RBC (3.65-5.03) M/mm3 Hgb (10.1-14.3) gm/dl Hct (30.3-42.9) % MCV (79-97) fl MCH (28-32) pg RDW (13.2-15.2) % Seg Neuts % (Manual) (40.0-70.0) % Lymphocytes % (Manual) (13.4-35.0) % Nucleated RBC % (0.0-0.9) % Seg Neutrophils # Man (1.8-7.7) K/mm3 Lymphocytes # (Manual) (1.2-5.4) K/mm3 PT (12.2-14.9) Sec. INR (0.87-1.13) APTT (24.2-36.6) Sec. D-Dimer (0-234) ng/mlDDU Heparin Anti-Xa Level (0.3-0.7) U.I./ml ABG Hemoglobin (12.0-17.5) ABG Oxyhemoglobin (94-98) ABG Chloride (98-107) mmol/L ABG Glucose (65-95) mg/dL BUN (7-17) mg/dL Creatinine (0.6-1.2) mg/dL Glucose (65-100) mg/dL POC Glucose (70-105) mg/dL Lactic Acid (0.7-2.0) mmol/L Calcium (8.4-10.2) mg/dL Phosphorus 4.70 H (2.5-4.5) mg/dL Magnesium 2.70 H (1.7-2.3) mg/dL Ferritin 472.6 H (10.0-200.0) ng/mL AST (5-40) units/L Alkaline Phosphatase (35-129) units/L Lactate Dehydrogenase 2146 H (91-180) units/L Troponin T 0.487 H* D (0.00-0.029) ng/mL C-Reactive Protein 8.70 H (0.00-1.30) mg/dL NT-Pro-B Natriuret Pep 2396 H (0-900) pg/mL Total Protein (6.3-8.2) g/dL Albumin (3.9-5) g/dL Arterial Blood Glucose (65-95) mg/dL Arterial Blood Ionized Calcium (4.6-5.3) mg/dL Crossmatch 12/09/20 12/09/20 12/10/20 Range/Units 17:17 23:43 02:39 WBC 19.2 H (4.5-11.0) K/mm3 RBC 2.76 L (3.65-5.03) M/mm3 Hgb 6.7 L (10.1-14.3) gm/dl Hct 21.7 L (30.3-42.9) % MCV (79-97) fl MCH 24 L (28-32) pg RDW 19.3 H (13.2-15.2) % Seg Neuts % (Manual) 95.0 H (40.0-70.0) % Lymphocytes % (Manual) 1.0 L (13.4-35.0) % Nucleated RBC % 3.0 H (0.0-0.9) % Seg Neutrophils # Man 18.2 H (1.8-7.7) K/mm3 Lymphocytes # (Manual) 0.2 L (1.2-5.4) K/mm3 PT (12.2-14.9) Sec. INR (0.87-1.13) APTT (24.2-36.6) Sec. D-Dimer (0-234) ng/mlDDU Heparin Anti-Xa Level (0.3-0.7) U.I./ml ABG Hemoglobin (12.0-17.5) ABG Oxyhemoglobin (94-98) ABG Chloride (98-107) mmol/L ABG Glucose (65-95) mg/dL BUN (7-17) mg/dL Creatinine (0.6-1.2) mg/dL Glucose (65-100) mg/dL POC Glucose 179 H 144 H (70-105) mg/dL Lactic Acid (0.7-2.0) mmol/L Calcium (8.4-10.2) mg/dL Phosphorus (2.5-4.5) mg/dL Magnesium (1.7-2.3) mg/dL Ferritin (10.0-200.0) ng/mL AST (5-40) units/L Alkaline Phosphatase (35-129) units/L Lactate Dehydrogenase (91-180) units/L Troponin T (0.00-0.029) ng/mL C-Reactive Protein (0.00-1.30) mg/dL NT-Pro-B Natriuret Pep (0-900) pg/mL Total Protein (6.3-8.2) g/dL Albumin (3.9-5) g/dL Arterial Blood Glucose (65-95) mg/dL Arterial Blood Ionized Calcium (4.6-5.3) mg/dL Crossmatch 12/10/20 12/10/20 12/10/20 Range/Units 03:08 04:10 05:42 WBC (4.5-11.0) K/mm3 RBC (3.65-5.03) M/mm3 Hgb (10.1-14.3) gm/dl Hct (30.3-42.9) % MCV (79-97) fl MCH (28-32) pg RDW (13.2-15.2) % Seg Neuts % (Manual) (40.0-70.0) % Lymphocytes % (Manual) (13.4-35.0) % Nucleated RBC % (0.0-0.9) % Seg Neutrophils # Man (1.8-7.7) K/mm3 Lymphocytes # (Manual) (1.2-5.4) K/mm3 PT (12.2-14.9) Sec. INR (0.87-1.13) APTT (24.2-36.6) Sec. D-Dimer (0-234) ng/mlDDU Heparin Anti-Xa Level (0.3-0.7) U.I./ml ABG Hemoglobin 6.3 L (12.0-17.5) ABG Oxyhemoglobin 93.8 L (94-98) ABG Chloride 108.0 H (98-107) mmol/L ABG Glucose 237 H (65-95) mg/dL BUN (7-17) mg/dL Creatinine (0.6-1.2) mg/dL Glucose (65-100) mg/dL POC Glucose 209 H (70-105) mg/dL Lactic Acid (0.7-2.0) mmol/L Calcium (8.4-10.2) mg/dL Phosphorus (2.5-4.5) mg/dL Magnesium (1.7-2.3) mg/dL Ferritin (10.0-200.0) ng/mL AST (5-40) units/L Alkaline Phosphatase (35-129) units/L Lactate Dehydrogenase (91-180) units/L Troponin T (0.00-0.029) ng/mL C-Reactive Protein (0.00-1.30) mg/dL NT-Pro-B Natriuret Pep (0-900) pg/mL Total Protein (6.3-8.2) g/dL Albumin (3.9-5) g/dL Arterial Blood Glucose 237 H (65-95) mg/dL Arterial Blood Ionized Calcium 4.3 L (4.6-5.3) mg/dL Crossmatch See Detail 12/10/20 Range/Units 07:43 WBC (4.5-11.0) K/mm3 RBC (3.65-5.03) M/mm3 Hgb (10.1-14.3) gm/dl Hct (30.3-42.9) % MCV (79-97) fl MCH (28-32) pg RDW (13.2-15.2) % Seg Neuts % (Manual) (40.0-70.0) % Lymphocytes % (Manual) (13.4-35.0) % Nucleated RBC % (0.0-0.9) % Seg Neutrophils # Man (1.8-7.7) K/mm3 Lymphocytes # (Manual) (1.2-5.4) K/mm3 PT (12.2-14.9) Sec. INR (0.87-1.13) APTT (24.2-36.6) Sec. D-Dimer (0-234) ng/mlDDU Heparin Anti-Xa Level (0.3-0.7) U.I./ml ABG Hemoglobin (12.0-17.5) ABG Oxyhemoglobin (94-98) ABG Chloride (98-107) mmol/L ABG Glucose (65-95) mg/dL BUN 39 H (7-17) mg/dL Creatinine 1.5 H (0.6-1.2) mg/dL Glucose 218 H (65-100) mg/dL POC Glucose (70-105) mg/dL Lactic Acid (0.7-2.0) mmol/L Calcium 7.9 L (8.4-10.2) mg/dL Phosphorus (2.5-4.5) mg/dL Magnesium (1.7-2.3) mg/dL Ferritin (10.0-200.0) ng/mL AST (5-40) units/L Alkaline Phosphatase (35-129) units/L Lactate Dehydrogenase (91-180) units/L Troponin T (0.00-0.029) ng/mL C-Reactive Protein (0.00-1.30) mg/dL NT-Pro-B Natriuret Pep (0-900) pg/mL Total Protein (6.3-8.2) g/dL Albumin (3.9-5) g/dL Arterial Blood Glucose (65-95) mg/dL Arterial Blood Ionized Calcium (4.6-5.3) mg/dL Crossmatch
--- NOTE | 2020-12-10 11:54 | Progress Note ---
Assessment and Plan - Patient Problems (1) Acute myocardial infarction Current Visit: Yes Status: Acute Plan to address problem: Patient presented with severe bilateral viral pneumonia, COVID-19 infection. Serial ECGs show an intercurrent myocardial infarction, on aggressive medical therapy. Subjective Date of service: 12/10/20 Principal diagnosis: Ac hypoxemic resp failure; COVID-19 infection; Pneumonia; ARDS; DM II; HTN Interval history: Patient is on the vent, stable sinus rhythm, stable hemodynamics. Objective Vital Signs Temp Pulse Resp BP Pulse Ox 12/10/20 10:58 70 146/64 12/10/20 10:46 71 24 92/35 100 12/10/20 10:40 99 F 72 24 148/64 100 12/10/20 10:30 70 24 92/35 100 12/10/20 10:25 99 F 70 24 141/62 100 12/10/20 10:16 71 24 92/35 100 12/10/20 10:10 98.6 F 74 24 148/64 100 12/10/20 10:00 71 24 92/35 100 12/10/20 09:55 98.6 F 75 24 145/63 100 12/10/20 09:46 66 24 92/35 100 12/10/20 09:40 98.6 F 68 24 175/64 100 12/10/20 09:30 68 24 92/35 12/10/20 09:25 98.6 F 70 24 170/65 100 12/10/20 09:16 91 H 24 92/35 100 12/10/20 09:10 98.6 F 88 24 102/51 100 12/10/20 09:00 84 24 92/35 100 12/10/20 08:55 98.6 F 83 24 140/60 100 12/10/20 08:46 88 24 92/35 100 12/10/20 08:40 98.6 F 82 24 131/60 100 12/10/20 08:30 85 24 92/35 65 L 12/10/20 08:20 96 H 24 92/35 12/10/20 08:10 85 24 92/35 100 12/10/20 08:00 98.6 F 82 24 92/35 100 12/10/20 07:50 86 24 92/35 100 12/10/20 07:40 79 23 92/35 100 12/10/20 07:32 84 115/57 100 12/10/20 07:30 78 24 92/35 100 12/10/20 07:26 98.8 F 84 24 100/60 100 12/10/20 07:20 82 24 92/35 100 12/10/20 07:12 98.8 F 84 24 115/57 100 12/10/20 07:10 85 24 92/35 100 12/10/20 07:00 88 24 100 12/10/20 06:56 98.8 F 88 24 88/44 100 12/10/20 06:50 88 23 100 12/10/20 06:41 98.8 F 87 24 88/47 100 12/10/20 06:40 88 24 100 12/10/20 06:30 86 24 100 12/10/20 06:20 85 24 100 12/10/20 06:00 87 24 100 12/10/20 05:46 87 24 100 12/10/20 05:35 88 90/46 12/10/20 05:30 88 24 100 12/10/20 05:20 89 24 100 12/10/20 05:10 89 24 100 12/10/20 05:00 90 24 100 12/10/20 04:57 89 94/49 100 12/10/20 04:50 91 H 24 100 12/10/20 04:40 93 H 24 99 12/10/20 04:30 95 H 24 98 12/10/20 04:20 102 H 24 92/35 96 12/10/20 04:10 104 H 20 92/35 90 12/10/20 04:00 100 H 17 92/35 97 12/10/20 03:50 102 H 17 92/35 12/10/20 03:40 92 H 25 H 92/35 99 12/10/20 03:30 86 24 92/35 96 12/10/20 03:20 75 24 92/35 97 12/10/20 03:10 77 24 92/35 97 12/10/20 03:07 98.1 F 12/10/20 03:00 72 24 92/35 97 12/10/20 02:50 75 24 92/35 97 12/10/20 02:40 71 24 92/35 96 12/10/20 02:30 74 24 92/35 96 12/10/20 02:20 73 24 92/35 96 12/10/20 02:10 81 25 H 92/35 96 12/10/20 02:00 72 24 96 12/10/20 01:46 58 L 24 96 12/10/20 01:30 59 L 24 97 12/10/20 01:16 61 24 97 12/10/20 01:00 61 24 97 12/10/20 00:46 62 24 97 12/10/20 00:30 64 24 97 12/10/20 00:16 64 24 97 12/10/20 00:08 63 131/54 96 12/10/20 00:00 97.9 F 64 24 96 12/09/20 23:46 63 24 96 12/09/20 23:30 64 24 96 12/09/20 23:16 65 24 96 12/09/20 23:00 68 24 97 12/09/20 22:46 64 24 97 12/09/20 22:30 63 24 97 12/09/20 22:16 66 24 97 12/09/20 22:00 67 24 96 12/09/20 21:46 68 24 95 12/09/20 21:30 66 24 95 12/09/20 21:16 68 24 95 12/09/20 21:00 65 24 95 12/09/20 20:46 65 24 95 12/09/20 20:30 65 24 95 12/09/20 20:26 67 24 95 12/09/20 20:16 66 24 95 12/09/20 20:01 63 133/57 96 12/09/20 20:00 97.4 F L 64 24 96 12/09/20 19:46 68 24 92/35 96 12/09/20 19:30 66 24 92/35 97 12/09/20 19:16 66 24 92/35 97 12/09/20 19:00 67 24 92/35 96 12/09/20 18:46 66 24 92/35 96 12/09/20 18:30 66 24 92/35 97 12/09/20 18:16 68 24 92/35 96 12/09/20 18:00 69 24 92/35 94 12/09/20 17:46 86 24 92/35 77 L 12/09/20 17:30 73 18 92/35 98 12/09/20 17:20 62 145/56 99 12/09/20 17:16 60 24 92/35 99 12/09/20 17:00 83 24 92/35 84 12/09/20 16:46 67 24 92/35 97 12/09/20 16:30 71 24 92/35 96 12/09/20 16:16 82 24 92/35 87 12/09/20 16:00 98.1 F 68 24 92/35 99 12/09/20 15:46 74 24 92/35 99 12/09/20 15:30 91 H 24 92/35 95 12/09/20 15:16 67 24 92/35 99 12/09/20 15:00 66 24 92/35 98 12/09/20 14:46 65 24 92/35 98 12/09/20 14:30 67 24 92/35 98 12/09/20 14:16 65 24 92/35 98 12/09/20 14:00 66 24 92/35 97 12/09/20 13:46 65 24 92/35 98 12/09/20 13:33 66 126/53 98 12/09/20 13:30 68 24 92/35 98 12/09/20 13:16 68 24 92/35 97 12/09/20 13:00 67 24 92/35 97 12/09/20 12:46 59 L 24 92/35 100 12/09/20 12:30 60 24 92/35 100 12/09/20 12:16 60 24 92/35 100 12/09/20 12:00 98.6 F 60 24 92/35 99 - Physical Examination Narrative exam: Full physical exam is deferred due to underlying acute Covid pneumonia. General: Other (intubated on the vent) - Labs and Meds Cardiac Enzymes 12/09/20 12/09/20 Range/Units 13:08 13:08 AST 97 H (5-40) units/L Lactate Dehydrogenase 2146 H (91-180) units/L Coagulation 12/09/20 Range/Units 13:08 PT 15.2 H (12.2-14.9) Sec. INR 1.15 H (0.87-1.13) APTT 84.5 H* (24.2-36.6) Sec. CBC 12/09/20 12/10/20 Range/Units 13:08 02:39 WBC 20.8 H 19.2 H (4.5-11.0) K/mm3 RBC 3.35 L 2.76 L (3.65-5.03) M/mm3 Hgb 8.3 L 6.7 L (10.1-14.3) gm/dl Hct 26.2 L 21.7 L (30.3-42.9) % Plt Count 248 269 (140-440) K/mm3 Comprehensive Metabolic Panel 12/09/20 12/10/20 Range/Units 13:08 07:43 Sodium 140 141 (137-145) mmol/L Potassium 5.0 4.5 (3.6-5.0) mmol/L Chloride 104.0 105.1 (98-107) mmol/L Carbon Dioxide 23 24 (22-30) mmol/L BUN 34 H 39 H (7-17) mg/dL Creatinine 1.4 H 1.5 H (0.6-1.2) mg/dL Glucose 156 H 218 H (65-100) mg/dL Calcium 8.1 L 7.9 L (8.4-10.2) mg/dL AST 97 H (5-40) units/L ALT 21 (7-56) units/L Alkaline Phosphatase 241 H (35-129) units/L Total Protein 5.2 L (6.3-8.2) g/dL Albumin 2.7 L (3.9-5) g/dL - Allied health notes Allied health notes reviewed: nursing
[2020-12-10] MEDS: VANCOMYCIN/NS 1 GM/250 ML 1 GM/250 ML BAG IV SCH (13:27)
[2020-12-10 14:00] LABS: Hemoglobin 7.8 gm/dl (10.1-14.3)
--- NOTE | 2020-12-10 14:29 | Progress Note ---
Assessment and Plan Acute hypoxemic respiratory failure COVID-19 infection STEMI Bilateral pneumonia Acute respiratory distress syndrome DM II Hypertension Elevated serum inflammatory markers to include LDH, ferritin and D-dimers Anemia - IV Heparin stopped due to bleeding - s/p PRBC transfusion - aggressive medical therapy for STEMI otherwise per cardiology - FiO2 reduced to 60% - continue daily SAT's & SBT assessment as tolerated - continue to wean supplemental oxygen for target O2 sat's > 92% acutely - VAP bundle addressed - continue care as below otherwise; - continue bronchodilators with pulmonary hygiene per RT - continue accuchecks with glycemic control per SSI (While critically ill target blood glucose of 140-180 mg/dL; avoid hypoglycemia) - avoid nephrotoxins, renally dose all medications - continue to avoid benzodiazepine's, reduce the possibility of delirium - completed Anti-infective's per ID rec's - prn analgesia per pain score - Maintenance of sleep-wake cycle, avoid delirium - G.I. & VTE prophylaxis - PT/OT/ROM exercises - mobility protocols for pressure ulcer prophylaxis - Monitor hemodynamics closely - continue other care per attending / other consultants COVID SPECIFIC INTERVENTIONS - Remdesivir as per ID/Pulmonary developed protocols (receiving) - continue systemic steroids for severe COVID-19 infection (Decadron) - follow repeat COVID tests results - zinc and vitamin C supplementation - Monitor inflammatory markers per facility protocol - ferritin, Ddimer, CRP - therapeutic anticoagulation per system Protocol based on d-dimer and clinical considerations (VTE Prophylaxis) - Continue contact and airborne isolation .... Re-evaluate in am & prn CONDITION: CRITICAL PROGNOSIS: GUARDED CODE STATUS: FULL CODE The high probability of a clinically significant, sudden or life-threatening deterioration of the [respiratory, cardiovascular & neurologic] system(s) required my full and direct attention, intervention and personal management. The aggregate critical care time was [32] minutes without overlap. Time includes spent on; [x] Data Review and interpretation [x] Patient assessment and monitoring of vital signs [x] Documentation [x] Medication orders and management Subjective Date of service: 12/10/20 Principal diagnosis: Ac hypoxemic resp failure; COVID-19 infection; Pneumonia; ARDS; DM II; HTN Interval history: Patient is seen today for: Acute hypoxemic respiratory failure; COVID-19 infection; Pneumonia; ARDS; DM II; HTN Seen and examined at bedside; 24hour events reviewed; nursing and respiratory care staff consulted; no adverse overnight events reported to me; resting in bed; remains on MVS; FiO2 at 75% but room to wean; sedated at time of my examination; no gross bleeding on Heparin; no high grade fevers Objective Vital Signs - 12hr 12/10/20 12/10/20 12/10/20 02:30 02:40 02:50 Temperature Pulse Rate 74 71 75 Respiratory 24 24 24 Rate Blood Pressure 92/35 92/35 92/35 O2 Sat by Pulse 96 96 97 Oximetry 12/10/20 12/10/20 12/10/20 03:00 03:07 03:10 Temperature 98.1 F Pulse Rate 72 77 Respiratory 24 24 Rate Blood Pressure 92/35 92/35 O2 Sat by Pulse 97 97 Oximetry 12/10/20 12/10/20 12/10/20 03:20 03:30 03:40 Temperature Pulse Rate 75 86 92 H Respiratory 24 24 25 H Rate Blood Pressure 92/35 92/35 92/35 O2 Sat by Pulse 97 96 99 Oximetry 12/10/20 12/10/20 12/10/20 03:50 04:00 04:10 Temperature Pulse Rate 102 H 100 H 104 H Respiratory 17 17 20 Rate Blood Pressure 92/35 92/35 92/35 O2 Sat by Pulse 97 90 Oximetry 12/10/20 12/10/20 12/10/20 04:20 04:30 04:40 Temperature Pulse Rate 102 H 95 H 93 H Respiratory 24 24 24 Rate Blood Pressure 92/35 O2 Sat by Pulse 96 98 99 Oximetry 12/10/20 12/10/20 12/10/20 04:50 04:57 05:00 Temperature Pulse Rate 91 H 89 90 Respiratory 24 24 Rate Blood Pressure 94/49 O2 Sat by Pulse 100 100 100 Oximetry 12/10/20 12/10/20 12/10/20 05:10 05:20 05:30 Temperature Pulse Rate 89 89 88 Respiratory 24 24 24 Rate Blood Pressure O2 Sat by Pulse 100 100 100 Oximetry 12/10/20 12/10/20 12/10/20 05:35 05:46 06:00 Temperature Pulse Rate 88 87 87 Respiratory 24 24 Rate Blood Pressure 90/46 O2 Sat by Pulse 100 100 Oximetry 12/10/20 12/10/20 12/10/20 06:20 06:30 06:40 Temperature Pulse Rate 85 86 88 Respiratory 24 24 24 Rate Blood Pressure O2 Sat by Pulse 100 100 100 Oximetry 12/10/20 12/10/20 12/10/20 06:41 06:50 06:56 Temperature 98.8 F 98.8 F Pulse Rate 87 88 88 Respiratory 24 23 24 Rate Blood Pressure 88/47 88/44 O2 Sat by Pulse 100 100 100 Oximetry 12/10/20 12/10/20 12/10/20 07:00 07:10 07:12 Temperature 98.8 F Pulse Rate 88 85 84 Respiratory 24 24 24 Rate Blood Pressure 92/35 115/57 O2 Sat by Pulse 100 100 100 Oximetry 12/10/20 12/10/20 12/10/20 07:20 07:26 07:30 Temperature 98.8 F Pulse Rate 82 84 78 Respiratory 24 24 24 Rate Blood Pressure 92/35 100/60 92/35 O2 Sat by Pulse 100 100 100 Oximetry 12/10/20 12/10/20 12/10/20 07:32 07:40 07:50 Temperature Pulse Rate 84 79 86 Respiratory 23 24 Rate Blood Pressure 115/57 92/35 92/35 O2 Sat by Pulse 100 100 100 Oximetry 12/10/20 12/10/20 12/10/20 08:00 08:10 08:20 Temperature 98.6 F Pulse Rate 82 85 96 H Respiratory 24 24 24 Rate Blood Pressure 92/35 92/35 92/35 O2 Sat by Pulse 100 100 Oximetry 12/10/20 12/10/20 12/10/20 08:30 08:40 08:46 Temperature 98.6 F Pulse Rate 85 82 88 Respiratory 24 24 24 Rate Blood Pressure 92/35 131/60 92/35 O2 Sat by Pulse 65 L 100 100 Oximetry 12/10/20 12/10/20 12/10/20 08:55 09:00 09:10 Temperature 98.6 F 98.6 F Pulse Rate 83 84 88 Respiratory 24 24 24 Rate Blood Pressure 140/60 92/35 102/51 O2 Sat by Pulse 100 100 100 Oximetry 12/10/20 12/10/20 12/10/20 09:16 09:25 09:30 Temperature 98.6 F Pulse Rate 91 H 70 68 Respiratory 24 24 24 Rate Blood Pressure 92/35 170/65 92/35 O2 Sat by Pulse 100 100 Oximetry 12/10/20 12/10/20 12/10/20 09:40 09:46 09:55 Temperature 98.6 F 98.6 F Pulse Rate 68 66 75 Respiratory 24 24 24 Rate Blood Pressure 175/64 92/35 145/63 O2 Sat by Pulse 100 100 100 Oximetry 12/10/20 12/10/20 12/10/20 10:00 10:10 10:16 Temperature 98.6 F Pulse Rate 71 74 71 Respiratory 24 24 24 Rate Blood Pressure 92/35 148/64 92/35 O2 Sat by Pulse 100 100 100 Oximetry 12/10/20 12/10/20 12/10/20 10:25 10:30 10:40 Temperature 99 F 99 F Pulse Rate 70 70 72 Respiratory 24 24 24 Rate Blood Pressure 141/62 92/35 148/64 O2 Sat by Pulse 100 100 100 Oximetry 12/10/20 12/10/20 12/10/20 10:46 10:58 11:00 Temperature Pulse Rate 71 70 70 Respiratory 24 24 Rate Blood Pressure 92/35 146/64 92/35 O2 Sat by Pulse 100 100 Oximetry 12/10/20 12/10/20 12/10/20 11:16 11:30 11:46 Temperature Pulse Rate 62 72 62 Respiratory 24 24 24 Rate Blood Pressure 92/35 92/35 92/35 O2 Sat by Pulse 100 100 100 Oximetry 12/10/20 12/10/20 12/10/20 11:53 12:00 12:16 Temperature 99.1 F Pulse Rate 70 64 61 Respiratory 24 24 Rate Blood Pressure 146/64 92/35 92/35 O2 Sat by Pulse 99 100 100 Oximetry 12/10/20 12/10/20 12/10/20 12:30 12:46 13:00 Temperature Pulse Rate 66 63 62 Respiratory 24 24 24 Rate Blood Pressure 92/35 92/35 92/35 O2 Sat by Pulse 100 100 100 Oximetry 12/10/20 12/10/20 12/10/20 13:16 13:26 13:30 Temperature Pulse Rate 62 60 58 L Respiratory 24 24 Rate Blood Pressure 92/35 140/70 92/35 O2 Sat by Pulse 100 100 Oximetry 12/10/20 12/10/20 13:46 14:00 Temperature Pulse Rate 58 L 58 L Respiratory 24 24 Rate Blood Pressure 92/35 92/35 O2 Sat by Pulse 100 100 Oximetry Constitutional: no acute distress, other (elderly female without increased respiratory effort at rest on MVS) Eyes: non-icteric ENT: oropharynx moist, other (ETT 23 cm JENNIFER) Neck: supple, no lymphadenopathy, no JVD Effort: mildly labored Ascultation: Bilateral: rhonchi (bases) Percussion: Bilateral: not dull Cardiovascular: regular rate and rhythm Gastrointestinal: normoactive bowel sounds, soft, non-tender, non-distended Integumentary: normal Extremities: no cyanosis, no edema, pulses normal, no ischemia or petechiae Neurologic: non-focal exam, pupils equal and round, unable to assess, other (sedated) Psychiatric: other (unable to assess re: AMS) CBC and BMP: 12/11/20 10:25 12/11/20 04:29 ABG, PT/INR, D-dimer: ABG ABG pH 7.338 (7.320-7.450) 12/10/20 03:08 POC ABG pCO2 41.5 mmHg (32.0-48.0) 12/10/20 03:08 POC ABG pO2 85.7 mmHg (83-108) 12/10/20 03:08 POC ABG HCO3 21.8 12/10/20 03:08 ABG O2 Saturation 95.0 (0-100) 12/10/20 03:08 PT/INR, D-dimer PT 15.2 Sec. (12.2-14.9) H 12/09/20 13:08 INR 1.15 (0.87-1.13) H 12/09/20 13:08 D-Dimer 4051.67 ng/mlDDU (0-234) H 12/09/20 13:08 Abnormal lab findings: Abnormal Labs 12/02/20 12/02/20 12/02/20 03:58 03:58 03:58 WBC RBC 3.57 L Hgb 8.9 L Hct 27.2 L MCV 76 L MCH 25 L RDW 17.6 H Lymph % (Auto) 6.7 L Lymph # (Auto) 0.3 L Seg Neutrophils % 87.7 H Seg Neuts % (Manual) Lymphocytes % (Manual) Nucleated RBC % Seg Neutrophils # Man Lymphocytes # (Manual) PT INR APTT D-Dimer 1559.33 H Heparin Anti-Xa Level ABG pH POC ABG pCO2 POC ABG pO2 ABG Hemoglobin ABG Oxyhemoglobin ABG Sodium ABG Potassium ABG Chloride ABG Glucose Carboxyhemoglobin Sodium 130 L Potassium Chloride 90.0 L BUN 20 H Creatinine Glucose 346 H POC Glucose Hemoglobin A1c Lactic Acid Calcium Phosphorus Magnesium 2.40 H Ferritin AST 43 H Alkaline Phosphatase Lactate Dehydrogenase 582 H Total Creatine Kinase CK-MB (CK-2) CK-MB (CK-2) Rel Index Troponin T C-Reactive Protein 34.20 H NT-Pro-B Natriuret Pep Total Protein Albumin 3.1 L Triglycerides LDL Cholesterol Direct HDL Cholesterol Arterial Blood Glucose Arterial Blood Ionized Calcium Coronavirus (PCR) Crossmatch 12/02/20 12/02/20 12/02/20 03:58 06:15 07:37 WBC RBC Hgb Hct MCV MCH RDW Lymph % (Auto) Lymph # (Auto) Seg Neutrophils % Seg Neuts % (Manual) Lymphocytes % (Manual) Nucleated RBC % Seg Neutrophils # Man Lymphocytes # (Manual) PT INR APTT D-Dimer Heparin Anti-Xa Level ABG pH POC ABG pCO2 POC ABG pO2 ABG Hemoglobin ABG Oxyhemoglobin ABG Sodium ABG Potassium ABG Chloride ABG Glucose Carboxyhemoglobin Sodium Potassium Chloride BUN Creatinine Glucose POC Glucose 339 H Hemoglobin A1c 9.5 H Lactic Acid Calcium Phosphorus Magnesium Ferritin 497.6 H AST Alkaline Phosphatase Lactate Dehydrogenase Total Creatine Kinase CK-MB (CK-2) CK-MB (CK-2) Rel Index Troponin T C-Reactive Protein NT-Pro-B Natriuret Pep Total Protein Albumin Triglycerides LDL Cholesterol Direct HDL Cholesterol Arterial Blood Glucose Arterial Blood Ionized Calcium Coronavirus (PCR) Crossmatch 12/02/20 12/02/20 12/02/20 08:15 11:52 13:29 WBC RBC Hgb 9.7 L Hct MCV MCH RDW Lymph % (Auto) Lymph # (Auto) Seg Neutrophils % Seg Neuts % (Manual) Lymphocytes % (Manual) Nucleated RBC % Seg Neutrophils # Man Lymphocytes # (Manual) PT INR APTT D-Dimer Heparin Anti-Xa Level ABG pH POC ABG pCO2 POC ABG pO2 ABG Hemoglobin ABG Oxyhemoglobin ABG Sodium ABG Potassium ABG Chloride ABG Glucose Carboxyhemoglobin Sodium Potassium Chloride BUN Creatinine Glucose POC Glucose 305 H Hemoglobin A1c Lactic Acid Calcium Phosphorus Magnesium Ferritin AST Alkaline Phosphatase Lactate Dehydrogenase Total Creatine Kinase CK-MB (CK-2) CK-MB (CK-2) Rel Index Troponin T C-Reactive Protein NT-Pro-B Natriuret Pep Total Protein Albumin Triglycerides LDL Cholesterol Direct HDL Cholesterol Arterial Blood Glucose Arterial Blood Ionized Calcium Coronavirus (PCR) Positive A Crossmatch 12/02/20 12/02/20 12/02/20 16:53 22:39 23:39 WBC RBC Hgb Hct MCV MCH RDW Lymph % (Auto) Lymph # (Auto) Seg Neutrophils % Seg Neuts % (Manual) Lymphocytes % (Manual) Nucleated RBC % Seg Neutrophils # Man Lymphocytes # (Manual) PT INR APTT D-Dimer Heparin Anti-Xa Level ABG pH POC ABG pCO2 POC ABG pO2 ABG Hemoglobin ABG Oxyhemoglobin ABG Sodium ABG Potassium ABG Chloride ABG Glucose Carboxyhemoglobin Sodium 131 L Potassium Chloride 93.8 L BUN 22 H Creatinine Glucose 301 H POC Glucose 281 H 290 H Hemoglobin A1c Lactic Acid Calcium Phosphorus Magnesium Ferritin AST Alkaline Phosphatase Lactate Dehydrogenase Total Creatine Kinase CK-MB (CK-2) CK-MB (CK-2) Rel Index Troponin T C-Reactive Protein NT-Pro-B Natriuret Pep Total Protein 6.2 L Albumin 2.8 L Triglycerides LDL Cholesterol Direct HDL Cholesterol Arterial Blood Glucose Arterial Blood Ionized Calcium Coronavirus (PCR) Crossmatch 12/03/20 12/03/20 12/03/20 03:48 03:48 08:59 WBC RBC 3.46 L Hgb 8.6 L Hct 26.5 L MCV 77 L MCH 25 L RDW 18.2 H Lymph % (Auto) Lymph # (Auto) Seg Neutrophils % Seg Neuts % (Manual) 93.0 H Lymphocytes % (Manual) 3.0 L Nucleated RBC % Seg Neutrophils # Man Lymphocytes # (Manual) 0.2 L PT INR APTT D-Dimer Heparin Anti-Xa Level ABG pH POC ABG pCO2 POC ABG pO2 ABG Hemoglobin ABG Oxyhemoglobin ABG Sodium ABG Potassium ABG Chloride ABG Glucose Carboxyhemoglobin Sodium 131 L Potassium Chloride 92.5 L BUN 22 H Creatinine Glucose 279 H POC Glucose 258 H Hemoglobin A1c Lactic Acid Calcium 8.2 L Phosphorus Magnesium Ferritin AST Alkaline Phosphatase Lactate Dehydrogenase Total Creatine Kinase CK-MB (CK-2) CK-MB (CK-2) Rel Index Troponin T C-Reactive Protein NT-Pro-B Natriuret Pep Total Protein 5.6 L Albumin 2.8 L Triglycerides LDL Cholesterol Direct HDL Cholesterol Arterial Blood Glucose Arterial Blood Ionized Calcium Coronavirus (PCR) Crossmatch 12/03/20 12/03/20 12/03/20 12:45 15:57 17:01 WBC RBC Hgb Hct MCV MCH RDW Lymph % (Auto) Lymph # (Auto) Seg Neutrophils % Seg Neuts % (Manual) Lymphocytes % (Manual) Nucleated RBC % Seg Neutrophils # Man Lymphocytes # (Manual) PT INR APTT D-Dimer Heparin Anti-Xa Level ABG pH 7.527 H POC ABG pCO2 POC ABG pO2 50.4 L ABG Hemoglobin ABG Oxyhemoglobin ABG Sodium 129.8 L ABG Potassium ABG Chloride 95.0 L ABG Glucose 394 H Carboxyhemoglobin Sodium Potassium Chloride BUN Creatinine Glucose POC Glucose 349 H 359 H Hemoglobin A1c Lactic Acid Calcium Phosphorus Magnesium Ferritin AST Alkaline Phosphatase Lactate Dehydrogenase Total Creatine Kinase CK-MB (CK-2) CK-MB (CK-2) Rel Index Troponin T C-Reactive Protein NT-Pro-B Natriuret Pep Total Protein Albumin Triglycerides LDL Cholesterol Direct HDL Cholesterol Arterial Blood Glucose 394 H Arterial Blood Ionized Calcium Coronavirus (PCR) Crossmatch 12/03/20 12/04/20 12/04/20 21:16 04:27 06:49 WBC RBC Hgb Hct MCV MCH RDW Lymph % (Auto) Lymph # (Auto) Seg Neutrophils % Seg Neuts % (Manual) Lymphocytes % (Manual) Nucleated RBC % Seg Neutrophils # Man Lymphocytes # (Manual) PT INR APTT D-Dimer Heparin Anti-Xa Level ABG pH 7.530 H POC ABG pCO2 POC ABG pO2 37.6 L ABG Hemoglobin 9.6 L ABG Oxyhemoglobin 72.5 L ABG Sodium 132.3 L ABG Potassium ABG Chloride ABG Glucose 180 H Carboxyhemoglobin 0.4 L Sodium 136 L Potassium Chloride 97.3 L BUN 23 H Creatinine Glucose 166 H POC Glucose 295 H Hemoglobin A1c Lactic Acid Calcium Phosphorus Magnesium Ferritin AST Alkaline Phosphatase Lactate Dehydrogenase Total Creatine Kinase CK-MB (CK-2) CK-MB (CK-2) Rel Index Troponin T C-Reactive Protein NT-Pro-B Natriuret Pep Total Protein 5.7 L Albumin 2.6 L Triglycerides LDL Cholesterol Direct HDL Cholesterol Arterial Blood Glucose 180 H Arterial Blood Ionized Calcium Coronavirus (PCR) Crossmatch 12/04/20 12/04/20 12/04/20 07:49 11:37 16:22 WBC RBC Hgb Hct MCV MCH RDW Lymph % (Auto) Lymph # (Auto) Seg Neutrophils % Seg Neuts % (Manual) Lymphocytes % (Manual) Nucleated RBC % Seg Neutrophils # Man Lymphocytes # (Manual) PT INR APTT D-Dimer Heparin Anti-Xa Level ABG pH POC ABG pCO2 POC ABG pO2 ABG Hemoglobin ABG Oxyhemoglobin ABG Sodium ABG Potassium ABG Chloride ABG Glucose Carboxyhemoglobin Sodium Potassium Chloride BUN Creatinine Glucose POC Glucose 180 H 213 H 177 H Hemoglobin A1c Lactic Acid Calcium Phosphorus Magnesium Ferritin AST Alkaline Phosphatase Lactate Dehydrogenase Total Creatine Kinase CK-MB (CK-2) CK-MB (CK-2) Rel Index Troponin T C-Reactive Protein NT-Pro-B Natriuret Pep Total Protein Albumin Triglycerides LDL Cholesterol Direct HDL Cholesterol Arterial Blood Glucose Arterial Blood Ionized Calcium Coronavirus (PCR) Crossmatch 12/04/20 12/04/20 12/05/20 22:21 23:12 05:16 WBC RBC Hgb Hct MCV MCH RDW Lymph % (Auto) Lymph # (Auto) Seg Neutrophils % Seg Neuts % (Manual) Lymphocytes % (Manual) Nucleated RBC % Seg Neutrophils # Man Lymphocytes # (Manual) PT INR APTT D-Dimer Heparin Anti-Xa Level ABG pH 7.494 H POC ABG pCO2 POC ABG pO2 56.3 L ABG Hemoglobin 8.6 L ABG Oxyhemoglobin 88.3 L ABG Sodium 131.8 L ABG Potassium ABG Chloride ABG Glucose 205 H Carboxyhemoglobin 0.3 L Sodium Potassium Chloride BUN 19 H Creatinine Glucose 64 L POC Glucose 207 H Hemoglobin A1c Lactic Acid Calcium Phosphorus Magnesium Ferritin AST Alkaline Phosphatase Lactate Dehydrogenase Total Creatine Kinase CK-MB (CK-2) CK-MB (CK-2) Rel Index Troponin T C-Reactive Protein NT-Pro-B Natriuret Pep Total Protein 6.0 L Albumin 2.8 L Triglycerides LDL Cholesterol Direct HDL Cholesterol Arterial Blood Glucose 205 H Arterial Blood Ionized Calcium Coronavirus (PCR) Crossmatch 12/05/20 12/05/20 12/05/20 08:01 09:07 12:31 WBC RBC Hgb Hct MCV MCH RDW Lymph % (Auto) Lymph # (Auto) Seg Neutrophils % Seg Neuts % (Manual) Lymphocytes % (Manual) Nucleated RBC % Seg Neutrophils # Man Lymphocytes # (Manual) PT INR APTT D-Dimer Heparin Anti-Xa Level ABG pH POC ABG pCO2 POC ABG pO2 ABG Hemoglobin ABG Oxyhemoglobin ABG Sodium ABG Potassium ABG Chloride ABG Glucose Carboxyhemoglobin Sodium Potassium Chloride BUN Creatinine Glucose POC Glucose 49 L 157 H 113 H Hemoglobin A1c Lactic Acid Calcium Phosphorus Magnesium Ferritin AST Alkaline Phosphatase Lactate Dehydrogenase Total Creatine Kinase CK-MB (CK-2) CK-MB (CK-2) Rel Index Troponin T C-Reactive Protein NT-Pro-B Natriuret Pep Total Protein Albumin Triglycerides LDL Cholesterol Direct HDL Cholesterol Arterial Blood Glucose Arterial Blood Ionized Calcium Coronavirus (PCR) Crossmatch 12/05/20 12/06/20 12/06/20 16:57 07:51 12:07 WBC RBC Hgb Hct MCV MCH RDW Lymph % (Auto) Lymph # (Auto) Seg Neutrophils % Seg Neuts % (Manual) Lymphocytes % (Manual) Nucleated RBC % Seg Neutrophils # Man Lymphocytes # (Manual) PT INR APTT D-Dimer Heparin Anti-Xa Level ABG pH POC ABG pCO2 POC ABG pO2 ABG Hemoglobin ABG Oxyhemoglobin ABG Sodium ABG Potassium ABG Chloride ABG Glucose Carboxyhemoglobin Sodium Potassium Chloride BUN Creatinine Glucose POC Glucose 223 H 110 H 229 H Hemoglobin A1c Lactic Acid Calcium Phosphorus Magnesium Ferritin AST Alkaline Phosphatase Lactate Dehydrogenase Total Creatine Kinase CK-MB (CK-2) CK-MB (CK-2) Rel Index Troponin T C-Reactive Protein NT-Pro-B Natriuret Pep Total Protein Albumin Triglycerides LDL Cholesterol Direct HDL Cholesterol Arterial Blood Glucose Arterial Blood Ionized Calcium Coronavirus (PCR) Crossmatch 12/06/20 12/06/20 12/06/20 14:56 16:00 18:53 WBC RBC Hgb 9.6 L Hct MCV MCH RDW Lymph % (Auto) Lymph # (Auto) Seg Neutrophils % Seg Neuts % (Manual) Lymphocytes % (Manual) Nucleated RBC % Seg Neutrophils # Man Lymphocytes # (Manual) PT INR APTT D-Dimer > 45116 H Heparin Anti-Xa Level ABG pH POC ABG pCO2 POC ABG pO2 ABG Hemoglobin ABG Oxyhemoglobin ABG Sodium ABG Potassium ABG Chloride ABG Glucose Carboxyhemoglobin Sodium Potassium Chloride BUN Creatinine Glucose POC Glucose 235 H Hemoglobin A1c Lactic Acid Calcium Phosphorus Magnesium Ferritin AST Alkaline Phosphatase Lactate Dehydrogenase Total Creatine Kinase CK-MB (CK-2) CK-MB (CK-2) Rel Index Troponin T C-Reactive Protein NT-Pro-B Natriuret Pep Total Protein Albumin Triglycerides LDL Cholesterol Direct HDL Cholesterol Arterial Blood Glucose Arterial Blood Ionized Calcium Coronavirus (PCR) Crossmatch 12/06/20 12/06/20 12/07/20 18:53 23:15 07:03 WBC RBC Hgb Hct MCV MCH RDW Lymph % (Auto) Lymph # (Auto) Seg Neutrophils % Seg Neuts % (Manual) Lymphocytes % (Manual) Nucleated RBC % Seg Neutrophils # Man Lymphocytes # (Manual) PT 17.4 H INR 1.37 H APTT D-Dimer Heparin Anti-Xa Level ABG pH POC ABG pCO2 POC ABG pO2 ABG Hemoglobin ABG Oxyhemoglobin ABG Sodium ABG Potassium ABG Chloride ABG Glucose Carboxyhemoglobin Sodium Potassium Chloride BUN 23 H Creatinine Glucose 62 L POC Glucose 170 H Hemoglobin A1c Lactic Acid Calcium Phosphorus Magnesium Ferritin AST Alkaline Phosphatase Lactate Dehydrogenase Total Creatine Kinase CK-MB (CK-2) CK-MB (CK-2) Rel Index Troponin T C-Reactive Protein NT-Pro-B Natriuret Pep Total Protein Albumin Triglycerides LDL Cholesterol Direct HDL Cholesterol Arterial Blood Glucose Arterial Blood Ionized Calcium Coronavirus (PCR) Crossmatch 12/07/20 12/07/20 12/07/20 07:03 07:28 17:45 WBC RBC Hgb Hct MCV MCH RDW Lymph % (Auto) Lymph # (Auto) Seg Neutrophils % Seg Neuts % (Manual) Lymphocytes % (Manual) Nucleated RBC % Seg Neutrophils # Man Lymphocytes # (Manual) PT INR APTT D-Dimer Heparin Anti-Xa Level 0.85 H ABG pH POC ABG pCO2 POC ABG pO2 ABG Hemoglobin ABG Oxyhemoglobin ABG Sodium ABG Potassium ABG Chloride ABG Glucose Carboxyhemoglobin Sodium Potassium Chloride BUN Creatinine Glucose POC Glucose 54 L 196 H Hemoglobin A1c Lactic Acid Calcium Phosphorus Magnesium Ferritin AST Alkaline Phosphatase Lactate Dehydrogenase Total Creatine Kinase CK-MB (CK-2) CK-MB (CK-2) Rel Index Troponin T C-Reactive Protein NT-Pro-B Natriuret Pep Total Protein Albumin Triglycerides LDL Cholesterol Direct HDL Cholesterol Arterial Blood Glucose Arterial Blood Ionized Calcium Coronavirus (PCR) Crossmatch 12/07/20 12/08/20 12/08/20 21:26 13:11 13:25 WBC RBC Hgb Hct MCV MCH RDW Lymph % (Auto) Lymph # (Auto) Seg Neutrophils % Seg Neuts % (Manual) Lymphocytes % (Manual) Nucleated RBC % Seg Neutrophils # Man Lymphocytes # (Manual) PT INR APTT D-Dimer Heparin Anti-Xa Level ABG pH POC ABG pCO2 POC ABG pO2 ABG Hemoglobin ABG Oxyhemoglobin ABG Sodium ABG Potassium ABG Chloride ABG Glucose Carboxyhemoglobin Sodium Potassium Chloride BUN Creatinine Glucose POC Glucose 165 H 62 L Hemoglobin A1c Lactic Acid Calcium Phosphorus Magnesium Ferritin AST Alkaline Phosphatase Lactate Dehydrogenase Total Creatine Kinase 520 H CK-MB (CK-2) 33.2 H CK-MB (CK-2) Rel Index 6.3 H Troponin T 0.646 H* C-Reactive Protein NT-Pro-B Natriuret Pep Total Protein Albumin Triglycerides 181 H LDL Cholesterol Direct 30 L HDL Cholesterol 35 L Arterial Blood Glucose Arterial Blood Ionized Calcium Coronavirus (PCR) Crossmatch 12/08/20 12/08/20 12/08/20 15:36 18:05 20:15 WBC RBC Hgb Hct MCV MCH RDW Lymph % (Auto) Lymph # (Auto) Seg Neutrophils % Seg Neuts % (Manual) Lymphocytes % (Manual) Nucleated RBC % Seg Neutrophils # Man Lymphocytes # (Manual) PT INR APTT D-Dimer Heparin Anti-Xa Level ABG pH 7.117 L POC ABG pCO2 61.7 H POC ABG pO2 39.7 L ABG Hemoglobin 9.0 L ABG Oxyhemoglobin 46.0 L ABG Sodium 135.7 L ABG Potassium 4.6 H ABG Chloride ABG Glucose 235 H Carboxyhemoglobin Sodium Potassium Chloride BUN Creatinine Glucose POC Glucose 163 H Hemoglobin A1c Lactic Acid Calcium Phosphorus Magnesium Ferritin AST Alkaline Phosphatase Lactate Dehydrogenase Total Creatine Kinase 521 H CK-MB (CK-2) 31.5 H CK-MB (CK-2) Rel Index 6.0 H Troponin T 0.648 H* C-Reactive Protein NT-Pro-B Natriuret Pep 1573 H Total Protein Albumin Triglycerides LDL Cholesterol Direct HDL Cholesterol Arterial Blood Glucose 235 H Arterial Blood Ionized Calcium Coronavirus (PCR) Crossmatch 12/08/20 12/08/20 12/08/20 20:15 20:15 20:15 WBC 24.0 H RBC 3.35 L Hgb 8.1 L Hct 26.0 L D MCV 78 L MCH 24 L RDW 18.5 H Lymph % (Auto) Lymph # (Auto) Seg Neutrophils % Seg Neuts % (Manual) 91.0 H Lymphocytes % (Manual) 5.0 L Nucleated RBC % Seg Neutrophils # Man 21.8 H Lymphocytes # (Manual) PT INR APTT 62.9 H* D-Dimer > 21945 H Heparin Anti-Xa Level ABG pH POC ABG pCO2 POC ABG pO2 ABG Hemoglobin ABG Oxyhemoglobin ABG Sodium ABG Potassium ABG Chloride ABG Glucose Carboxyhemoglobin Sodium Potassium 5.1 H D Chloride BUN 27 H Creatinine Glucose 186 H POC Glucose Hemoglobin A1c Lactic Acid Calcium 7.8 L Phosphorus 5.50 H Magnesium 2.40 H Ferritin AST 126 H Alkaline Phosphatase 298 H Lactate Dehydrogenase 2677 H Total Creatine Kinase CK-MB (CK-2) CK-MB (CK-2) Rel Index Troponin T C-Reactive Protein NT-Pro-B Natriuret Pep Total Protein 4.9 L Albumin 2.6 L Triglycerides LDL Cholesterol Direct HDL Cholesterol Arterial Blood Glucose Arterial Blood Ionized Calcium Coronavirus (PCR) Crossmatch 12/08/20 12/08/20 12/09/20 21:00 22:03 06:00 WBC RBC Hgb Hct MCV MCH RDW Lymph % (Auto) Lymph # (Auto) Seg Neutrophils % Seg Neuts % (Manual) Lymphocytes % (Manual) Nucleated RBC % Seg Neutrophils # Man Lymphocytes # (Manual) PT INR APTT D-Dimer Heparin Anti-Xa Level 0.85 H ABG pH 7.318 L POC ABG pCO2 51.9 H POC ABG pO2 74.6 L ABG Hemoglobin 8.9 L ABG Oxyhemoglobin 90.8 L ABG Sodium ABG Potassium 4.9 H ABG Chloride ABG Glucose 141 H Carboxyhemoglobin Sodium Potassium Chloride BUN Creatinine Glucose POC Glucose 163 H Hemoglobin A1c Lactic Acid Calcium Phosphorus Magnesium Ferritin AST Alkaline Phosphatase Lactate Dehydrogenase Total Creatine Kinase CK-MB (CK-2) CK-MB (CK-2) Rel Index Troponin T C-Reactive Protein NT-Pro-B Natriuret Pep Total Protein Albumin Triglycerides LDL Cholesterol Direct HDL Cholesterol Arterial Blood Glucose 141 H Arterial Blood Ionized Calcium 4.5 L Coronavirus (PCR) Crossmatch 12/09/20 12/09/20 12/09/20 08:13 11:53 13:08 WBC RBC Hgb Hct MCV MCH RDW Lymph % (Auto) Lymph # (Auto) Seg Neutrophils % Seg Neuts % (Manual) Lymphocytes % (Manual) Nucleated RBC % Seg Neutrophils # Man Lymphocytes # (Manual) PT INR APTT D-Dimer Heparin Anti-Xa Level 0.94 H ABG pH POC ABG pCO2 50.7 H POC ABG pO2 156.4 H ABG Hemoglobin 8.7 L ABG Oxyhemoglobin ABG Sodium 134.9 L ABG Potassium 5.4 H ABG Chloride ABG Glucose 140 H Carboxyhemoglobin Sodium Potassium Chloride BUN Creatinine Glucose POC Glucose 127 H Hemoglobin A1c Lactic Acid Calcium Phosphorus Magnesium Ferritin AST Alkaline Phosphatase Lactate Dehydrogenase Total Creatine Kinase CK-MB (CK-2) CK-MB (CK-2) Rel Index Troponin T C-Reactive Protein NT-Pro-B Natriuret Pep Total Protein Albumin Triglycerides LDL Cholesterol Direct HDL Cholesterol Arterial Blood Glucose 140 H Arterial Blood Ionized Calcium 4.2 L Coronavirus (PCR) Crossmatch 12/09/20 12/09/20 12/09/20 13:08 13:08 13:08 WBC 20.8 H RBC 3.35 L Hgb 8.3 L Hct 26.2 L MCV 78 L MCH 25 L RDW 19.5 H Lymph % (Auto) Lymph # (Auto) Seg Neutrophils % Seg Neuts % (Manual) Lymphocytes % (Manual) Nucleated RBC % Seg Neutrophils # Man Lymphocytes # (Manual) PT 15.2 H INR 1.15 H APTT 84.5 H* D-Dimer 4051.67 H Heparin Anti-Xa Level ABG pH POC ABG pCO2 POC ABG pO2 ABG Hemoglobin ABG Oxyhemoglobin ABG Sodium ABG Potassium ABG Chloride ABG Glucose Carboxyhemoglobin Sodium Potassium Chloride BUN 34 H Creatinine 1.4 H Glucose 156 H POC Glucose Hemoglobin A1c Lactic Acid Calcium 8.1 L Phosphorus Magnesium Ferritin AST 97 H Alkaline Phosphatase 241 H Lactate Dehydrogenase Total Creatine Kinase CK-MB (CK-2) CK-MB (CK-2) Rel Index Troponin T C-Reactive Protein NT-Pro-B Natriuret Pep Total Protein 5.2 L Albumin 2.7 L Triglycerides LDL Cholesterol Direct HDL Cholesterol Arterial Blood Glucose Arterial Blood Ionized Calcium Coronavirus (PCR) Crossmatch 12/09/20 12/09/20 12/09/20 13:08 13:08 13:08 WBC RBC Hgb Hct MCV MCH RDW Lymph % (Auto) Lymph # (Auto) Seg Neutrophils % Seg Neuts % (Manual) Lymphocytes % (Manual) Nucleated RBC % Seg Neutrophils # Man Lymphocytes # (Manual) PT INR APTT D-Dimer Heparin Anti-Xa Level ABG pH POC ABG pCO2 POC ABG pO2 ABG Hemoglobin ABG Oxyhemoglobin ABG Sodium ABG Potassium ABG Chloride ABG Glucose Carboxyhemoglobin Sodium Potassium Chloride BUN Creatinine Glucose POC Glucose Hemoglobin A1c Lactic Acid 2.50 H* Calcium Phosphorus 4.70 H Magnesium 2.70 H Ferritin 472.6 H AST Alkaline Phosphatase Lactate Dehydrogenase 2146 H Total Creatine Kinase CK-MB (CK-2) CK-MB (CK-2) Rel Index Troponin T 0.487 H* D C-Reactive Protein 8.70 H NT-Pro-B Natriuret Pep Total Protein Albumin Triglycerides LDL Cholesterol Direct HDL Cholesterol Arterial Blood Glucose Arterial Blood Ionized Calcium Coronavirus (PCR) Crossmatch 12/09/20 12/09/20 12/09/20 13:08 17:17 23:43 WBC RBC Hgb Hct MCV MCH RDW Lymph % (Auto) Lymph # (Auto) Seg Neutrophils % Seg Neuts % (Manual) Lymphocytes % (Manual) Nucleated RBC % Seg Neutrophils # Man Lymphocytes # (Manual) PT INR APTT D-Dimer Heparin Anti-Xa Level ABG pH POC ABG pCO2 POC ABG pO2 ABG Hemoglobin ABG Oxyhemoglobin ABG Sodium ABG Potassium ABG Chloride ABG Glucose Carboxyhemoglobin Sodium Potassium Chloride BUN Creatinine Glucose POC Glucose 179 H 144 H Hemoglobin A1c Lactic Acid Calcium Phosphorus Magnesium Ferritin AST Alkaline Phosphatase Lactate Dehydrogenase Total Creatine Kinase CK-MB (CK-2) CK-MB (CK-2) Rel Index Troponin T C-Reactive Protein NT-Pro-B Natriuret Pep 2396 H Total Protein Albumin Triglycerides LDL Cholesterol Direct HDL Cholesterol Arterial Blood Glucose Arterial Blood Ionized Calcium Coronavirus (PCR) Crossmatch 12/10/20 12/10/20 12/10/20 02:39 03:08 04:10 WBC 19.2 H RBC 2.76 L Hgb 6.7 L Hct 21.7 L MCV MCH 24 L RDW 19.3 H Lymph % (Auto) Lymph # (Auto) Seg Neutrophils % Seg Neuts % (Manual) 95.0 H Lymphocytes % (Manual) 1.0 L Nucleated RBC % 3.0 H Seg Neutrophils # Man 18.2 H Lymphocytes # (Manual) 0.2 L PT INR APTT D-Dimer Heparin Anti-Xa Level ABG pH POC ABG pCO2 POC ABG pO2 ABG Hemoglobin 6.3 L ABG Oxyhemoglobin 93.8 L ABG Sodium ABG Potassium ABG Chloride 108.0 H ABG Glucose 237 H Carboxyhemoglobin Sodium Potassium Chloride BUN Creatinine Glucose POC Glucose Hemoglobin A1c Lactic Acid Calcium Phosphorus Magnesium Ferritin AST Alkaline Phosphatase Lactate Dehydrogenase Total Creatine Kinase CK-MB (CK-2) CK-MB (CK-2) Rel Index Troponin T C-Reactive Protein NT-Pro-B Natriuret Pep Total Protein Albumin Triglycerides LDL Cholesterol Direct HDL Cholesterol Arterial Blood Glucose 237 H Arterial Blood Ionized Calcium 4.3 L Coronavirus (PCR) Crossmatch See Detail 12/10/20 12/10/20 12/10/20 05:42 07:43 11:47 WBC RBC Hgb Hct MCV MCH RDW Lymph % (Auto) Lymph # (Auto) Seg Neutrophils % Seg Neuts % (Manual) Lymphocytes % (Manual) Nucleated RBC % Seg Neutrophils # Man Lymphocytes # (Manual) PT INR APTT D-Dimer Heparin Anti-Xa Level ABG pH POC ABG pCO2 POC ABG pO2 ABG Hemoglobin ABG Oxyhemoglobin ABG Sodium ABG Potassium ABG Chloride ABG Glucose Carboxyhemoglobin Sodium Potassium Chloride BUN 39 H Creatinine 1.5 H Glucose 218 H POC Glucose 209 H 208 H Hemoglobin A1c Lactic Acid Calcium 7.9 L Phosphorus Magnesium Ferritin AST Alkaline Phosphatase Lactate Dehydrogenase Total Creatine Kinase CK-MB (CK-2) CK-MB (CK-2) Rel Index Troponin T C-Reactive Protein NT-Pro-B Natriuret Pep Total Protein Albumin Triglycerides LDL Cholesterol Direct HDL Cholesterol Arterial Blood Glucose Arterial Blood Ionized Calcium Coronavirus (PCR) Crossmatch 12/10/20 13:30 WBC RBC Hgb 7.8 L Hct 24.0 L MCV MCH RDW Lymph % (Auto) Lymph # (Auto) Seg Neutrophils % Seg Neuts % (Manual) Lymphocytes % (Manual) Nucleated RBC % Seg Neutrophils # Man Lymphocytes # (Manual) PT INR APTT D-Dimer Heparin Anti-Xa Level ABG pH POC ABG pCO2 POC ABG pO2 ABG Hemoglobin ABG Oxyhemoglobin ABG Sodium ABG Potassium ABG Chloride ABG Glucose Carboxyhemoglobin Sodium Potassium Chloride BUN Creatinine Glucose POC Glucose Hemoglobin A1c Lactic Acid Calcium Phosphorus Magnesium Ferritin AST Alkaline Phosphatase Lactate Dehydrogenase Total Creatine Kinase CK-MB (CK-2) CK-MB (CK-2) Rel Index Troponin T C-Reactive Protein NT-Pro-B Natriuret Pep Total Protein Albumin Triglycerides LDL Cholesterol Direct HDL Cholesterol Arterial Blood Glucose Arterial Blood Ionized Calcium Coronavirus (PCR) Crossmatch Chest x-ray: image reviewed (tubes and lines in good position) Allied health notes reviewed: nursing
--- NOTE | 2020-12-10 16:58 | Event Note ---
Date: 12/10/20 pt seen and examined, chart reviewed, full consult dictated - pt w/ COVID pneumonia and sepsis noted w/ possible hematemesis w/o melena or other signs bleeding - PPI iv drip - follow h/h - conservative management given other med issues - will follow
[2020-12-10] MEDS: INSULIN GLARGINE 100 UNITS/ML SUB-Q SCH (21:20)
[2020-12-11] MEDS: INSULIN LISPRO 100 UNIT/ML SUB-Q SCH ×5 (00:10→23:30)
[2020-12-11] MEDS: NORepinephrine/NS 8 MG-250 ML 8 MG/250 ML INFUS..BTL IV SCH ×3 (00:30→18:40)
[2020-12-11] MEDS: PANTOPRAZOLE 80 MG in SODIUM CHLORIDE 0.9% 100 ML IV SCH ×2 (00:34→14:13)
[2020-12-11] MEDS: fentaNYL DRIP Premix 2,000 MCG/100 ML BAG IV SCH ×3 (01:33→17:05)
--- NOTE | 2020-12-11 03:11 | Consultation ---
DATE OF CONSULTATION: 12/10/2020 REFERRING PHYSICIAN: Dr. Juan Rajput. INDICATION: Hematemesis. HISTORY OF PRESENT ILLNESS: The patient is a 65-year-old black female with a history of hypertension, diabetes, now has been seen by GI for GI bleed. The patient presented after having symptoms consistent with COVID. The patient subsequently had some shortness of breath. The patient subsequently was diagnosed with COVID and subsequently was intubated. The patient has been treated for COVID pneumonia and other medical issues. Overnight, the patient was noted to have bright red coming up from her nose and mouth. GI is consulted to aid in management. Per staff, no more blood today. Denies any melena. No coffee grounds. No other specific complaints. PAST MEDICAL HISTORY: 1. Hypertension. 2. Diabetes. 3. GI bleed in the past. MEDICATIONS: Reviewed and updated in chart. ALLERGIES: No known drug allergies. SOCIAL HISTORY: Reportedly, no alcohol or tobacco. FAMILY HISTORY: No colon cancer. REVIEW OF SYSTEMS: GENERAL: Reports weakness. HEENT: No visual complaints. PULMONARY: Shortness of breath, chest pain. GASTROINTESTINAL: Reported blood in the nose and mouth. All points of a 13-point review of system otherwise negative. PHYSICAL EXAMINATION: VITAL SIGNS: Temperature of 99.3, pulse 60, respirations 20, and blood pressure 100/60. GENERAL: Fairly nourished female, in no acute distress. HEENT: Pupils equal, round and reactive. PULMONARY: Rhonchi. CARDIOVASCULAR: Regular rate and rhythm. ABDOMEN: Soft. SKIN: No obvious rashes. LABORATORY DATA: Pertinent for white count of 19, hemoglobin and hematocrit 6.7 and 21.7, platelet count of 269. Chem-7 pertinent for BUN and creatinine of 39 and 1.5, otherwise normal. ASSESSMENT AND PLAN: A 65-year-old black female presents and admitted and now intubated for COVID pneumonia with an overall poor prognosis, now with noted blood in oral cavity and nose. No reported melena and no coffee emesis. Unsure if this is GI upper bleed. The patient though unstable given her other medical issues, would want to take a conservative approach. PLAN: 1. PPI IV drip. 2. Follow hematocrit and transfuse as needed. 3. Other issues including COVID pneumonia and sepsis per primary team. 4. No plans to scope at this time. 5. We will follow further recommendation based on progress. TID: [id number] RECEIPT: [id number] VÍCTOR/MEGHAN/NESS
[2020-12-11] MEDS: CEFEPIME/NS 2 GM/100 ML 2 GM/100 ML BAG IV SCH ×2 (03:49→14:14)
[2020-12-11] MEDS: VASOPRESSIN 20 UNIT in SODIUM CHLORIDE 0.9% 100 ML IV SCH ×2 (03:49→12:55)
[2020-12-11 04:44] LABS: Hematocrit 21.8 % (30.3-42.9); Mean Corpuscular HGB Conc 32 % (30-34); Mean Corpuscular Volume 84 fl (79-97); Platelet Count 111 K/mm3 (140-440); Red Cell Distribution Width 18.4 % (13.2-15.2)
[2020-12-11 05:08] LABS: Albumin 2.2 g/dL (3.9-5); Calcium 7.7 mg/dL (8.4-10.2)
[2020-12-11] MEDS: NITROGLYCERIN 2% OINT 1 GM TP SCH ×4 (05:15→18:51)
--- NOTE | 2020-12-11 08:21 | XRay Report ---
. CHEST - 1 VIEW INDICATION: follow up respiratory failure COMPARISON: Yesterday FINDINGS: SUPPORT DEVICES: Stable support device positioning. Of note, the Dobbhoff tube tip is in the mid sto mach and should be advanced at least 15 cm into the duodenum. HEART: Stable cardiomediastinal silhouette. LUNGS/PLEURA: Persistent hazy diffuse interstitial markings with no dense consolidation or effusion. ADDITIONAL FINDINGS: None. IMPRESSION: 1. Dobbhoff tube as above. 2. Otherwise unchanged exam. Signer Name: Lambert Arriola MD Signed: 12/11/2020 8:16 AM Workstation Name: [id number]
[2020-12-11] MEDS: DOCUSATE SODIUM 100 MG CAP PO SCH ×2 (09:37→21:24)
[2020-12-11] MEDS: ZINC SULFATE 220 MG CAP PO SCH (09:37)
[2020-12-11] MEDS: CHOLECALCIFEROL (VIT D3) 5,000 UNIT TAB PO SCH (09:37)
[2020-12-11] MEDS: CLOPIDOGREL 75 MG TAB PO SCH (09:37)
[2020-12-11] MEDS: ASCORBIC ACID 500 MG TAB PO SCH ×2 (09:37→21:24)
[2020-12-11] MEDS: ASPIRIN 81 MG TAB CHEW PO SCH (09:37)
[2020-12-11] MEDS: SENNOSIDES/DOCUSATE SODIUM 8.6/50 MG TAB FEEDTUBE SCH ×2 (09:37→21:24)
[2020-12-11] MEDS: dexAMETHasone 4 MG/ML VIAL IV SCH (09:37)
--- NOTE | 2020-12-11 10:06 | XRay Report ---
ABDOMEN 2 VIEW(S) INDICATION / CLINICAL INFORMATION: hypoactive BS with high residuals. COMPARISON: 3 days prior FINDINGS: TUBES / LINES: Dobbhoff tube tip is in the mid stomach and should be advanced at least 10 cm into the duodenum. BOWEL GAS PATTERN: There is a general paucity of bowel gas and moderate colonic stool burden. No tomi kly obstructive or ileus pattern. Probable mild constipation. FREE AIR / EXTRALUMINAL GAS: None seen. ADDITIONAL FINDINGS: No significant additional findings. IMPRESSION: 1. Dobbhoff tube should be advanced at least 10 cm. 2. Bowel findings as above. Signer Name: Lambert Arriola MD Signed: 12/11/2020 10:02 AM Workstation Name: [id number]
[2020-12-11] MEDS: PANTOPRAZOLE 40 MG INJ IV SCH (10:50)
[2020-12-11 11:17] LABS: Hemoglobin 6.7 gm/dl (10.1-14.3)
[2020-12-11] MEDS: METOCLOPRAMIDE 10 MG/2 ML INJ IV SCH ×2 (12:28→18:50)
--- NOTE | 2020-12-11 13:03 | Progress Note ---
Assessment and Plan Cultures: SARS CoV2 PCR: Positive 12/02/2020 blood culture: no growth A/P: 65-year-old female with diabetes, hypertension admitted with: #Shock, multifactorial, probably due to severe COVID, ?cardiogenic. No clear bacterial infection identified. #Bilateral pneumonia: Secondary to COVID-19. Severe disease. #Acute hypoxic respiratory failure: Secondary to above. Failed BiPAP, now on the vent. #Diabetes mellitus, uncontrolled: HbA1c 9.5 #ST elevation ND: Cardiology on board. #Bleeding, anemia Recs: -continue steroids, at least 10 days -Status post 5 days of remdesivir, s/p Actemra -continue cefepime and vancomycin x 5 days, D3 -oral bleeding, heparin turned off -Prognosis remains extremely poor Carl Goldstein MD, FACP [facility] O: [phone] F: [phone] Subjective Date of service: 12/11/20 Principal diagnosis: Ac hypoxemic resp failure; COVID-19 infection; Pneumonia; ARDS; DM II; HTN Interval history: No fever. Remains on the vent, 60% FiO2, 14 PEEP. Remains on norepinephrine, vasopressin Objective - Exam Narrative Exam: Physical Exam (reviewed in chart to minimize risk of transmission) Constitutional: deferred Head, Ears, Nose: deferred Eyes: deferred Neck: deferred Oral: deferred Cardiovascular: deferred Respiratory: deferred GI: deferred Musculoskeletal: deferred Skin: deferred Hem/Lymphatic: deferred Psych: deferred Neurological: deferred - Constitutional Vitals: Vital Signs Temp Pulse Resp BP Pulse Ox 98.2 F 59 L 24 132/54 100 12/11/20 11:43 12/11/20 13:00 12/11/20 10:31 12/11/20 13:00 12/11/20 13:00 Temperature -Last 24 Hours Temperature 98.2 F Temperature 98.4 F Temperature 99.5 F Temperature 100.2 F Temperature 99.1 F Temperature 99.3 F - Labs CBC & Chem 7: 12/11/20 10:25 12/11/20 04:29 Labs: Abnormal lab results 12/10/20 12/10/20 12/10/20 Range/Units 13:30 17:26 21:32 WBC (4.5-11.0) K/mm3 RBC (3.65-5.03) M/mm3 Hgb 7.8 L (10.1-14.3) gm/dl Hct 24.0 L (30.3-42.9) % MCH (28-32) pg RDW (13.2-15.2) % Plt Count (140-440) K/mm3 ABG Hemoglobin (12.0-17.5) ABG Chloride (98-107) mmol/L ABG Glucose (65-95) mg/dL Chloride (98-107) mmol/L BUN (7-17) mg/dL Creatinine (0.6-1.2) mg/dL Glucose (65-100) mg/dL POC Glucose 184 H 135 H (70-105) mg/dL Calcium (8.4-10.2) mg/dL Magnesium (1.7-2.3) mg/dL AST (5-40) units/L Alkaline Phosphatase (35-129) units/L Total Protein (6.3-8.2) g/dL Albumin (3.9-5) g/dL Triglycerides (2-149) mg/dL Arterial Blood Glucose (65-95) mg/dL Arterial Blood Ionized Calcium (4.6-5.3) mg/dL 12/10/20 12/11/20 12/11/20 Range/Units 23:03 02:57 04:29 WBC (4.5-11.0) K/mm3 RBC (3.65-5.03) M/mm3 Hgb (10.1-14.3) gm/dl Hct (30.3-42.9) % MCH (28-32) pg RDW (13.2-15.2) % Plt Count (140-440) K/mm3 ABG Hemoglobin 7.4 L (12.0-17.5) ABG Chloride 110.0 H (98-107) mmol/L ABG Glucose 250 H (65-95) mg/dL Chloride (98-107) mmol/L BUN (7-17) mg/dL Creatinine (0.6-1.2) mg/dL Glucose (65-100) mg/dL POC Glucose 204 H (70-105) mg/dL Calcium (8.4-10.2) mg/dL Magnesium (1.7-2.3) mg/dL AST (5-40) units/L Alkaline Phosphatase (35-129) units/L Total Protein (6.3-8.2) g/dL Albumin (3.9-5) g/dL Triglycerides 366 H (2-149) mg/dL Arterial Blood Glucose 250 H (65-95) mg/dL Arterial Blood Ionized Calcium 4.4 L (4.6-5.3) mg/dL 12/11/20 12/11/20 12/11/20 Range/Units 04:29 04:29 05:05 WBC 16.5 H (4.5-11.0) K/mm3 RBC 2.60 L (3.65-5.03) M/mm3 Hgb 7.0 L (10.1-14.3) gm/dl Hct 21.8 L (30.3-42.9) % MCH 27 L (28-32) pg RDW 18.4 H (13.2-15.2) % Plt Count 111 L (140-440) K/mm3 ABG Hemoglobin (12.0-17.5) ABG Chloride (98-107) mmol/L ABG Glucose (65-95) mg/dL Chloride 107.5 H (98-107) mmol/L BUN 45 H (7-17) mg/dL Creatinine 1.4 H (0.6-1.2) mg/dL Glucose 258 H (65-100) mg/dL POC Glucose 250 H (70-105) mg/dL Calcium 7.7 L (8.4-10.2) mg/dL Magnesium 3.00 H (1.7-2.3) mg/dL AST 78 H (5-40) units/L Alkaline Phosphatase 141 H (35-129) units/L Total Protein 4.4 L (6.3-8.2) g/dL Albumin 2.2 L (3.9-5) g/dL Triglycerides (2-149) mg/dL Arterial Blood Glucose (65-95) mg/dL Arterial Blood Ionized Calcium (4.6-5.3) mg/dL 12/11/20 12/11/20 Range/Units 10:25 11:07 WBC (4.5-11.0) K/mm3 RBC (3.65-5.03) M/mm3 Hgb 6.7 L (10.1-14.3) gm/dl Hct 21.0 L (30.3-42.9) % MCH (28-32) pg RDW (13.2-15.2) % Plt Count (140-440) K/mm3 ABG Hemoglobin (12.0-17.5) ABG Chloride (98-107) mmol/L ABG Glucose (65-95) mg/dL Chloride (98-107) mmol/L BUN (7-17) mg/dL Creatinine (0.6-1.2) mg/dL Glucose (65-100) mg/dL POC Glucose 225 H (70-105) mg/dL Calcium (8.4-10.2) mg/dL Magnesium (1.7-2.3) mg/dL AST (5-40) units/L Alkaline Phosphatase (35-129) units/L Total Protein (6.3-8.2) g/dL Albumin (3.9-5) g/dL Triglycerides (2-149) mg/dL Arterial Blood Glucose (65-95) mg/dL Arterial Blood Ionized Calcium (4.6-5.3) mg/dL
--- NOTE | 2020-12-11 13:05 | Progress Note ---
Assessment and Plan Acute hypoxemic respiratory failure COVID-19 infection STEMI Bilateral pneumonia Acute respiratory distress syndrome DM II Hypertension Elevated serum inflammatory markers to include LDH, ferritin and D-dimers Anemia - vascular surgery consulted to evaluate right hand s/p A-line attempt re: s welling (input appreciated) - transfuse 1 unit PRBC now re: repeat Hb of 6.3 - hold on cryoprecipitate re: underlying COVID hypercoagulable state and STEMI issues; will transfuse if there is suggestion of persistent, gross active bleeding - trend H&H meanwhile - continue to wean vasopressors for target MAP > 65 mmHg - aggressive medical therapy for STEMI otherwise per cardiology - continue daily SAT's & SBT assessment as tolerated - continue to wean supplemental oxygen for target O2 sat's > 92% acutely - VAP bundle addressed - continue care as below otherwise; - continue bronchodilators with pulmonary hygiene per RT - continue accuchecks with glycemic control per SSI (While critically ill target blood glucose of 140-180 mg/dL; avoid hypoglycemia) - avoid nephrotoxins, renally dose all medications - continue to avoid benzodiazepine's, reduce the possibility of delirium - completed Anti-infective's per ID rec's - prn analgesia per pain score - Maintenance of sleep-wake cycle, avoid delirium - G.I. & VTE prophylaxis - PT/OT/ROM exercises - mobility protocols for pressure ulcer prophylaxis - Monitor hemodynamics closely - continue other care per attending / other consultants COVID SPECIFIC INTERVENTIONS - Remdesivir as per ID/Pulmonary developed protocols (receiving) - continue systemic steroids for severe COVID-19 infection (Decadron) - follow repeat COVID tests results - zinc and vitamin C supplementation - Monitor inflammatory markers per facility protocol - ferritin, Ddimer, CRP - therapeutic anticoagulation per system Protocol based on d-dimer and clinical considerations (VTE Prophylaxis) - Continue contact and airborne isolation .... Re-evaluate in am & prn CONDITION: CRITICAL PROGNOSIS: GUARDED CODE STATUS: FULL CODE The high probability of a clinically significant, sudden or life-threatening deterioration of the [respiratory, cardiovascular & neurologic] system(s) required my full and direct attention, intervention and personal management. The aggregate critical care time was [38] minutes without overlap. Time includes spent on; [x] Data Review and interpretation [x] Patient assessment and monitoring of vital signs [x] Documentation [x] Medication orders and management Subjective Date of service: 12/11/20 Principal diagnosis: Ac hypoxemic resp failure; COVID-19 infection; Pneumonia; ARDS; DM II; HTN Interval history: Patient is seen today for: Acute hypoxemic respiratory failure; COVID-19 infection; Pneumonia; ARDS; DM II; HTN Seen and examined at bedside; 24hour events reviewed; nursing and respiratory care staff consulted; no adverse overnight events reported to me; resting in bed; remains on MVS; remains on Levophed @ 6 dennise's/min now; No emesis or overt aspiration; left A-line malfunctioning and discontinued; Heparin remains on hold re: Anemia; no gross G.I. bleeding; oxygenation slowly improving Objective Vital Signs - 12hr 12/11/20 12/11/20 12/11/20 01:16 01:30 01:46 Temperature Pulse Rate 74 76 75 Respiratory 24 24 24 Rate Blood Pressure 112/56 112/56 112/56 O2 Sat by Pulse Oximetry 12/11/20 12/11/20 12/11/20 02:00 02:16 02:30 Temperature Pulse Rate 72 72 71 Respiratory 24 24 24 Rate Blood Pressure 109/56 109/56 109/56 O2 Sat by Pulse Oximetry 12/11/20 12/11/20 12/11/20 02:46 03:00 03:16 Temperature Pulse Rate 71 72 74 Respiratory 24 24 24 Rate Blood Pressure 109/56 115/52 115/52 O2 Sat by Pulse Oximetry 12/11/20 12/11/20 12/11/20 03:30 03:46 03:50 Temperature 99.5 F Pulse Rate 73 78 Respiratory 24 24 Rate Blood Pressure 115/52 115/52 O2 Sat by Pulse 70 L Oximetry 12/11/20 12/11/20 12/11/20 04:00 04:16 04:30 Temperature Pulse Rate 80 70 72 Respiratory 24 24 24 Rate Blood Pressure 94/52 94/52 94/52 O2 Sat by Pulse 65 L 32 L 67 L Oximetry 12/11/20 12/11/20 12/11/20 04:46 05:00 05:08 Temperature Pulse Rate 70 68 76 Respiratory 24 24 Rate Blood Pressure 94/52 137/61 O2 Sat by Pulse 60 L 96 Oximetry 12/11/20 12/11/20 12/11/20 05:15 05:16 05:30 Temperature Pulse Rate 76 76 73 Respiratory 24 24 Rate Blood Pressure 137/61 137/61 137/61 O2 Sat by Pulse 42 L Oximetry 12/11/20 12/11/20 12/11/20 05:46 06:00 06:16 Temperature Pulse Rate 69 75 72 Respiratory 24 24 24 Rate Blood Pressure 137/61 128/60 128/60 O2 Sat by Pulse 88 Oximetry 12/11/20 12/11/20 12/11/20 06:30 06:46 07:00 Temperature 98.4 F Pulse Rate 70 72 71 Respiratory 24 24 24 Rate Blood Pressure 128/60 128/60 113/57 O2 Sat by Pulse 91 91 94 Oximetry 12/11/20 12/11/20 12/11/20 07:16 07:30 07:46 Temperature Pulse Rate 73 75 88 Respiratory 24 24 24 Rate Blood Pressure 113/57 113/57 113/57 O2 Sat by Pulse 94 92 Oximetry 12/11/20 12/11/20 12/11/20 08:00 08:16 08:31 Temperature Pulse Rate 77 73 72 Respiratory 24 24 24 Rate Blood Pressure 121/62 121/62 O2 Sat by Pulse 93 100 100 Oximetry 12/11/20 12/11/20 12/11/20 08:45 09:00 09:15 Temperature Pulse Rate 68 68 75 Respiratory 24 24 24 Rate Blood Pressure 121/62 112/56 112/56 O2 Sat by Pulse 100 100 89 Oximetry 12/11/20 12/11/20 12/11/20 09:31 09:38 09:45 Temperature Pulse Rate 68 70 70 Respiratory 24 24 Rate Blood Pressure 112/56 112/56 112/56 O2 Sat by Pulse 100 100 Oximetry 12/11/20 12/11/20 12/11/20 10:01 10:15 10:31 Temperature Pulse Rate 67 63 63 Respiratory 24 24 24 Rate Blood Pressure 129/58 129/58 129/58 O2 Sat by Pulse 100 100 100 Oximetry 12/11/20 12/11/20 11:43 13:00 Temperature 98.2 F Pulse Rate 59 L Respiratory Rate Blood Pressure 132/54 O2 Sat by Pulse 100 Oximetry Constitutional: appears uncomfortable, other (elderly female with mildly increased respiratory effort at rest on MVS) Eyes: non-icteric ENT: oropharynx moist, other (ETT 23 cm JENNIFER) Neck: supple, no lymphadenopathy, no JVD Effort: mildly labored Ascultation: Bilateral: rhonchi (bases) Percussion: Bilateral: not dull Cardiovascular: regular rate and rhythm Gastrointestinal: normoactive bowel sounds, soft, non-tender, non-distended Integumentary: normal Extremities: no cyanosis, no edema, pulses normal, no ischemia or petechiae, other (right hand swollen but warm and pulses palpable) Neurologic: non-focal exam, pupils equal and round, unable to assess, other (sedated) Psychiatric: other (unable to assess re: AMS) CBC and BMP: 12/11/20 10:25 12/11/20 04:29 ABG, PT/INR, D-dimer: ABG ABG pH 7.379 (7.320-7.450) 12/11/20 02:57 POC ABG pCO2 42.4 mmHg (32.0-48.0) 12/11/20 02:57 POC ABG pO2 86.7 mmHg (83-108) 12/11/20 02:57 POC ABG HCO3 24.5 12/11/20 02:57 ABG O2 Saturation 95.4 (0-100) 12/11/20 02:57 PT/INR, D-dimer PT 15.2 Sec. (12.2-14.9) H 12/09/20 13:08 INR 1.15 (0.87-1.13) H 12/09/20 13:08 D-Dimer 4051.67 ng/mlDDU (0-234) H 12/09/20 13:08 Abnormal lab findings: Abnormal Labs 12/02/20 12/02/20 12/02/20 03:58 03:58 03:58 WBC RBC 3.57 L Hgb 8.9 L Hct 27.2 L MCV 76 L MCH 25 L RDW 17.6 H Plt Count Lymph % (Auto) 6.7 L Lymph # (Auto) 0.3 L Seg Neutrophils % 87.7 H Seg Neuts % (Manual) Lymphocytes % (Manual) Nucleated RBC % Seg Neutrophils # Man Lymphocytes # (Manual) PT INR APTT D-Dimer 1559.33 H Heparin Anti-Xa Level ABG pH POC ABG pCO2 POC ABG pO2 ABG Hemoglobin ABG Oxyhemoglobin ABG Sodium ABG Potassium ABG Chloride ABG Glucose Carboxyhemoglobin Sodium 130 L Potassium Chloride 90.0 L BUN 20 H Creatinine Glucose 346 H POC Glucose Hemoglobin A1c Lactic Acid Calcium Phosphorus Magnesium 2.40 H Ferritin AST 43 H Alkaline Phosphatase Lactate Dehydrogenase 582 H Total Creatine Kinase CK-MB (CK-2) CK-MB (CK-2) Rel Index Troponin T C-Reactive Protein 34.20 H NT-Pro-B Natriuret Pep Total Protein Albumin 3.1 L Triglycerides LDL Cholesterol Direct HDL Cholesterol Arterial Blood Glucose Arterial Blood Ionized Calcium Coronavirus (PCR) Crossmatch 12/02/20 12/02/20 12/02/20 03:58 06:15 07:37 WBC RBC Hgb Hct MCV MCH RDW Plt Count Lymph % (Auto) Lymph # (Auto) Seg Neutrophils % Seg Neuts % (Manual) Lymphocytes % (Manual) Nucleated RBC % Seg Neutrophils # Man Lymphocytes # (Manual) PT INR APTT D-Dimer Heparin Anti-Xa Level ABG pH POC ABG pCO2 POC ABG pO2 ABG Hemoglobin ABG Oxyhemoglobin ABG Sodium ABG Potassium ABG Chloride ABG Glucose Carboxyhemoglobin Sodium Potassium Chloride BUN Creatinine Glucose POC Glucose 339 H Hemoglobin A1c 9.5 H Lactic Acid Calcium Phosphorus Magnesium Ferritin 497.6 H AST Alkaline Phosphatase Lactate Dehydrogenase Total Creatine Kinase CK-MB (CK-2) CK-MB (CK-2) Rel Index Troponin T C-Reactive Protein NT-Pro-B Natriuret Pep Total Protein Albumin Triglycerides LDL Cholesterol Direct HDL Cholesterol Arterial Blood Glucose Arterial Blood Ionized Calcium Coronavirus (PCR) Crossmatch 12/02/20 12/02/20 12/02/20 08:15 11:52 13:29 WBC RBC Hgb 9.7 L Hct MCV MCH RDW Plt Count Lymph % (Auto) Lymph # (Auto) Seg Neutrophils % Seg Neuts % (Manual) Lymphocytes % (Manual) Nucleated RBC % Seg Neutrophils # Man Lymphocytes # (Manual) PT INR APTT D-Dimer Heparin Anti-Xa Level ABG pH POC ABG pCO2 POC ABG pO2 ABG Hemoglobin ABG Oxyhemoglobin ABG Sodium ABG Potassium ABG Chloride ABG Glucose Carboxyhemoglobin Sodium Potassium Chloride BUN Creatinine Glucose POC Glucose 305 H Hemoglobin A1c Lactic Acid Calcium Phosphorus Magnesium Ferritin AST Alkaline Phosphatase Lactate Dehydrogenase Total Creatine Kinase CK-MB (CK-2) CK-MB (CK-2) Rel Index Troponin T C-Reactive Protein NT-Pro-B Natriuret Pep Total Protein Albumin Triglycerides LDL Cholesterol Direct HDL Cholesterol Arterial Blood Glucose Arterial Blood Ionized Calcium Coronavirus (PCR) Positive A Crossmatch 12/02/20 12/02/20 12/02/20 16:53 22:39 23:39 WBC RBC Hgb Hct MCV MCH RDW Plt Count Lymph % (Auto) Lymph # (Auto) Seg Neutrophils % Seg Neuts % (Manual) Lymphocytes % (Manual) Nucleated RBC % Seg Neutrophils # Man Lymphocytes # (Manual) PT INR APTT D-Dimer Heparin Anti-Xa Level ABG pH POC ABG pCO2 POC ABG pO2 ABG Hemoglobin ABG Oxyhemoglobin ABG Sodium ABG Potassium ABG Chloride ABG Glucose Carboxyhemoglobin Sodium 131 L Potassium Chloride 93.8 L BUN 22 H Creatinine Glucose 301 H POC Glucose 281 H 290 H Hemoglobin A1c Lactic Acid Calcium Phosphorus Magnesium Ferritin AST Alkaline Phosphatase Lactate Dehydrogenase Total Creatine Kinase CK-MB (CK-2) CK-MB (CK-2) Rel Index Troponin T C-Reactive Protein NT-Pro-B Natriuret Pep Total Protein 6.2 L Albumin 2.8 L Triglycerides LDL Cholesterol Direct HDL Cholesterol Arterial Blood Glucose Arterial Blood Ionized Calcium Coronavirus (PCR) Crossmatch 12/03/20 12/03/20 12/03/20 03:48 03:48 08:59 WBC RBC 3.46 L Hgb 8.6 L Hct 26.5 L MCV 77 L MCH 25 L RDW 18.2 H Plt Count Lymph % (Auto) Lymph # (Auto) Seg Neutrophils % Seg Neuts % (Manual) 93.0 H Lymphocytes % (Manual) 3.0 L Nucleated RBC % Seg Neutrophils # Man Lymphocytes # (Manual) 0.2 L PT INR APTT D-Dimer Heparin Anti-Xa Level ABG pH POC ABG pCO2 POC ABG pO2 ABG Hemoglobin ABG Oxyhemoglobin ABG Sodium ABG Potassium ABG Chloride ABG Glucose Carboxyhemoglobin Sodium 131 L Potassium Chloride 92.5 L BUN 22 H Creatinine Glucose 279 H POC Glucose 258 H Hemoglobin A1c Lactic Acid Calcium 8.2 L Phosphorus Magnesium Ferritin AST Alkaline Phosphatase Lactate Dehydrogenase Total Creatine Kinase CK-MB (CK-2) CK-MB (CK-2) Rel Index Troponin T C-Reactive Protein NT-Pro-B Natriuret Pep Total Protein 5.6 L Albumin 2.8 L Triglycerides LDL Cholesterol Direct HDL Cholesterol Arterial Blood Glucose Arterial Blood Ionized Calcium Coronavirus (PCR) Crossmatch 12/03/20 12/03/20 12/03/20 12:45 15:57 17:01 WBC RBC Hgb Hct MCV MCH RDW Plt Count Lymph % (Auto) Lymph # (Auto) Seg Neutrophils % Seg Neuts % (Manual) Lymphocytes % (Manual) Nucleated RBC % Seg Neutrophils # Man Lymphocytes # (Manual) PT INR APTT D-Dimer Heparin Anti-Xa Level ABG pH 7.527 H POC ABG pCO2 POC ABG pO2 50.4 L ABG Hemoglobin ABG Oxyhemoglobin ABG Sodium 129.8 L ABG Potassium ABG Chloride 95.0 L ABG Glucose 394 H Carboxyhemoglobin Sodium Potassium Chloride BUN Creatinine Glucose POC Glucose 349 H 359 H Hemoglobin A1c Lactic Acid Calcium Phosphorus Magnesium Ferritin AST Alkaline Phosphatase Lactate Dehydrogenase Total Creatine Kinase CK-MB (CK-2) CK-MB (CK-2) Rel Index Troponin T C-Reactive Protein NT-Pro-B Natriuret Pep Total Protein Albumin Triglycerides LDL Cholesterol Direct HDL Cholesterol Arterial Blood Glucose 394 H Arterial Blood Ionized Calcium Coronavirus (PCR) Crossmatch 12/03/20 12/04/20 12/04/20 21:16 04:27 06:49 WBC RBC Hgb Hct MCV MCH RDW Plt Count Lymph % (Auto) Lymph # (Auto) Seg Neutrophils % Seg Neuts % (Manual) Lymphocytes % (Manual) Nucleated RBC % Seg Neutrophils # Man Lymphocytes # (Manual) PT INR APTT D-Dimer Heparin Anti-Xa Level ABG pH 7.530 H POC ABG pCO2 POC ABG pO2 37.6 L ABG Hemoglobin 9.6 L ABG Oxyhemoglobin 72.5 L ABG Sodium 132.3 L ABG Potassium ABG Chloride ABG Glucose 180 H Carboxyhemoglobin 0.4 L Sodium 136 L Potassium Chloride 97.3 L BUN 23 H Creatinine Glucose 166 H POC Glucose 295 H Hemoglobin A1c Lactic Acid Calcium Phosphorus Magnesium Ferritin AST Alkaline Phosphatase Lactate Dehydrogenase Total Creatine Kinase CK-MB (CK-2) CK-MB (CK-2) Rel Index Troponin T C-Reactive Protein NT-Pro-B Natriuret Pep Total Protein 5.7 L Albumin 2.6 L Triglycerides LDL Cholesterol Direct HDL Cholesterol Arterial Blood Glucose 180 H Arterial Blood Ionized Calcium Coronavirus (PCR) Crossmatch 12/04/20 12/04/20 12/04/20 07:49 11:37 16:22 WBC RBC Hgb Hct MCV MCH RDW Plt Count Lymph % (Auto) Lymph # (Auto) Seg Neutrophils % Seg Neuts % (Manual) Lymphocytes % (Manual) Nucleated RBC % Seg Neutrophils # Man Lymphocytes # (Manual) PT INR APTT D-Dimer Heparin Anti-Xa Level ABG pH POC ABG pCO2 POC ABG pO2 ABG Hemoglobin ABG Oxyhemoglobin ABG Sodium ABG Potassium ABG Chloride ABG Glucose Carboxyhemoglobin Sodium Potassium Chloride BUN Creatinine Glucose POC Glucose 180 H 213 H 177 H Hemoglobin A1c Lactic Acid Calcium Phosphorus Magnesium Ferritin AST Alkaline Phosphatase Lactate Dehydrogenase Total Creatine Kinase CK-MB (CK-2) CK-MB (CK-2) Rel Index Troponin T C-Reactive Protein NT-Pro-B Natriuret Pep Total Protein Albumin Triglycerides LDL Cholesterol Direct HDL Cholesterol Arterial Blood Glucose Arterial Blood Ionized Calcium Coronavirus (PCR) Crossmatch 12/04/20 12/04/20 12/05/20 22:21 23:12 05:16 WBC RBC Hgb Hct MCV MCH RDW Plt Count Lymph % (Auto) Lymph # (Auto) Seg Neutrophils % Seg Neuts % (Manual) Lymphocytes % (Manual) Nucleated RBC % Seg Neutrophils # Man Lymphocytes # (Manual) PT INR APTT D-Dimer Heparin Anti-Xa Level ABG pH 7.494 H POC ABG pCO2 POC ABG pO2 56.3 L ABG Hemoglobin 8.6 L ABG Oxyhemoglobin 88.3 L ABG Sodium 131.8 L ABG Potassium ABG Chloride ABG Glucose 205 H Carboxyhemoglobin 0.3 L Sodium Potassium Chloride BUN 19 H Creatinine Glucose 64 L POC Glucose 207 H Hemoglobin A1c Lactic Acid Calcium Phosphorus Magnesium Ferritin AST Alkaline Phosphatase Lactate Dehydrogenase Total Creatine Kinase CK-MB (CK-2) CK-MB (CK-2) Rel Index Troponin T C-Reactive Protein NT-Pro-B Natriuret Pep Total Protein 6.0 L Albumin 2.8 L Triglycerides LDL Cholesterol Direct HDL Cholesterol Arterial Blood Glucose 205 H Arterial Blood Ionized Calcium Coronavirus (PCR) Crossmatch 12/05/20 12/05/20 12/05/20 08:01 09:07 12:31 WBC RBC Hgb Hct MCV MCH RDW Plt Count Lymph % (Auto) Lymph # (Auto) Seg Neutrophils % Seg Neuts % (Manual) Lymphocytes % (Manual) Nucleated RBC % Seg Neutrophils # Man Lymphocytes # (Manual) PT INR APTT D-Dimer Heparin Anti-Xa Level ABG pH POC ABG pCO2 POC ABG pO2 ABG Hemoglobin ABG Oxyhemoglobin ABG Sodium ABG Potassium ABG Chloride ABG Glucose Carboxyhemoglobin Sodium Potassium Chloride BUN Creatinine Glucose POC Glucose 49 L 157 H 113 H Hemoglobin A1c Lactic Acid Calcium Phosphorus Magnesium Ferritin AST Alkaline Phosphatase Lactate Dehydrogenase Total Creatine Kinase CK-MB (CK-2) CK-MB (CK-2) Rel Index Troponin T C-Reactive Protein NT-Pro-B Natriuret Pep Total Protein Albumin Triglycerides LDL Cholesterol Direct HDL Cholesterol Arterial Blood Glucose Arterial Blood Ionized Calcium Coronavirus (PCR) Crossmatch 12/05/20 12/06/20 12/06/20 16:57 07:51 12:07 WBC RBC Hgb Hct MCV MCH RDW Plt Count Lymph % (Auto) Lymph # (Auto) Seg Neutrophils % Seg Neuts % (Manual) Lymphocytes % (Manual) Nucleated RBC % Seg Neutrophils # Man Lymphocytes # (Manual) PT INR APTT D-Dimer Heparin Anti-Xa Level ABG pH POC ABG pCO2 POC ABG pO2 ABG Hemoglobin ABG Oxyhemoglobin ABG Sodium ABG Potassium ABG Chloride ABG Glucose Carboxyhemoglobin Sodium Potassium Chloride BUN Creatinine Glucose POC Glucose 223 H 110 H 229 H Hemoglobin A1c Lactic Acid Calcium Phosphorus Magnesium Ferritin AST Alkaline Phosphatase Lactate Dehydrogenase Total Creatine Kinase CK-MB (CK-2) CK-MB (CK-2) Rel Index Troponin T C-Reactive Protein NT-Pro-B Natriuret Pep Total Protein Albumin Triglycerides LDL Cholesterol Direct HDL Cholesterol Arterial Blood Glucose Arterial Blood Ionized Calcium Coronavirus (PCR) Crossmatch 12/06/20 12/06/20 12/06/20 14:56 16:00 18:53 WBC RBC Hgb 9.6 L Hct MCV MCH RDW Plt Count Lymph % (Auto) Lymph # (Auto) Seg Neutrophils % Seg Neuts % (Manual) Lymphocytes % (Manual) Nucleated RBC % Seg Neutrophils # Man Lymphocytes # (Manual) PT INR APTT D-Dimer > 75539 H Heparin Anti-Xa Level ABG pH POC ABG pCO2 POC ABG pO2 ABG Hemoglobin ABG Oxyhemoglobin ABG Sodium ABG Potassium ABG Chloride ABG Glucose Carboxyhemoglobin Sodium Potassium Chloride BUN Creatinine Glucose POC Glucose 235 H Hemoglobin A1c Lactic Acid Calcium Phosphorus Magnesium Ferritin AST Alkaline Phosphatase Lactate Dehydrogenase Total Creatine Kinase CK-MB (CK-2) CK-MB (CK-2) Rel Index Troponin T C-Reactive Protein NT-Pro-B Natriuret Pep Total Protein Albumin Triglycerides LDL Cholesterol Direct HDL Cholesterol Arterial Blood Glucose Arterial Blood Ionized Calcium Coronavirus (PCR) Crossmatch 12/06/20 12/06/20 12/07/20 18:53 23:15 07:03 WBC RBC Hgb Hct MCV MCH RDW Plt Count Lymph % (Auto) Lymph # (Auto) Seg Neutrophils % Seg Neuts % (Manual) Lymphocytes % (Manual) Nucleated RBC % Seg Neutrophils # Man Lymphocytes # (Manual) PT 17.4 H INR 1.37 H APTT D-Dimer Heparin Anti-Xa Level ABG pH POC ABG pCO2 POC ABG pO2 ABG Hemoglobin ABG Oxyhemoglobin ABG Sodium ABG Potassium ABG Chloride ABG Glucose Carboxyhemoglobin Sodium Potassium Chloride BUN 23 H Creatinine Glucose 62 L POC Glucose 170 H Hemoglobin A1c Lactic Acid Calcium Phosphorus Magnesium Ferritin AST Alkaline Phosphatase Lactate Dehydrogenase Total Creatine Kinase CK-MB (CK-2) CK-MB (CK-2) Rel Index Troponin T C-Reactive Protein NT-Pro-B Natriuret Pep Total Protein Albumin Triglycerides LDL Cholesterol Direct HDL Cholesterol Arterial Blood Glucose Arterial Blood Ionized Calcium Coronavirus (PCR) Crossmatch 12/07/20 12/07/20 12/07/20 07:03 07:28 17:45 WBC RBC Hgb Hct MCV MCH RDW Plt Count Lymph % (Auto) Lymph # (Auto) Seg Neutrophils % Seg Neuts % (Manual) Lymphocytes % (Manual) Nucleated RBC % Seg Neutrophils # Man Lymphocytes # (Manual) PT INR APTT D-Dimer Heparin Anti-Xa Level 0.85 H ABG pH POC ABG pCO2 POC ABG pO2 ABG Hemoglobin ABG Oxyhemoglobin ABG Sodium ABG Potassium ABG Chloride ABG Glucose Carboxyhemoglobin Sodium Potassium Chloride BUN Creatinine Glucose POC Glucose 54 L 196 H Hemoglobin A1c Lactic Acid Calcium Phosphorus Magnesium Ferritin AST Alkaline Phosphatase Lactate Dehydrogenase Total Creatine Kinase CK-MB (CK-2) CK-MB (CK-2) Rel Index Troponin T C-Reactive Protein NT-Pro-B Natriuret Pep Total Protein Albumin Triglycerides LDL Cholesterol Direct HDL Cholesterol Arterial Blood Glucose Arterial Blood Ionized Calcium Coronavirus (PCR) Crossmatch 12/07/20 12/08/20 12/08/20 21:26 13:11 13:25 WBC RBC Hgb Hct MCV MCH RDW Plt Count Lymph % (Auto) Lymph # (Auto) Seg Neutrophils % Seg Neuts % (Manual) Lymphocytes % (Manual) Nucleated RBC % Seg Neutrophils # Man Lymphocytes # (Manual) PT INR APTT D-Dimer Heparin Anti-Xa Level ABG pH POC ABG pCO2 POC ABG pO2 ABG Hemoglobin ABG Oxyhemoglobin ABG Sodium ABG Potassium ABG Chloride ABG Glucose Carboxyhemoglobin Sodium Potassium Chloride BUN Creatinine Glucose POC Glucose 165 H 62 L Hemoglobin A1c Lactic Acid Calcium Phosphorus Magnesium Ferritin AST Alkaline Phosphatase Lactate Dehydrogenase Total Creatine Kinase 520 H CK-MB (CK-2) 33.2 H CK-MB (CK-2) Rel Index 6.3 H Troponin T 0.646 H* C-Reactive Protein NT-Pro-B Natriuret Pep Total Protein Albumin Triglycerides 181 H LDL Cholesterol Direct 30 L HDL Cholesterol 35 L Arterial Blood Glucose Arterial Blood Ionized Calcium Coronavirus (PCR) Crossmatch 12/08/20 12/08/20 12/08/20 15:36 18:05 20:15 WBC RBC Hgb Hct MCV MCH RDW Plt Count Lymph % (Auto) Lymph # (Auto) Seg Neutrophils % Seg Neuts % (Manual) Lymphocytes % (Manual) Nucleated RBC % Seg Neutrophils # Man Lymphocytes # (Manual) PT INR APTT D-Dimer Heparin Anti-Xa Level ABG pH 7.117 L POC ABG pCO2 61.7 H POC ABG pO2 39.7 L ABG Hemoglobin 9.0 L ABG Oxyhemoglobin 46.0 L ABG Sodium 135.7 L ABG Potassium 4.6 H ABG Chloride ABG Glucose 235 H Carboxyhemoglobin Sodium Potassium Chloride BUN Creatinine Glucose POC Glucose 163 H Hemoglobin A1c Lactic Acid Calcium Phosphorus Magnesium Ferritin AST Alkaline Phosphatase Lactate Dehydrogenase Total Creatine Kinase 521 H CK-MB (CK-2) 31.5 H CK-MB (CK-2) Rel Index 6.0 H Troponin T 0.648 H* C-Reactive Protein NT-Pro-B Natriuret Pep 1573 H Total Protein Albumin Triglycerides LDL Cholesterol Direct HDL Cholesterol Arterial Blood Glucose 235 H Arterial Blood Ionized Calcium Coronavirus (PCR) Crossmatch 12/08/20 12/08/20 12/08/20 20:15 20:15 20:15 WBC 24.0 H RBC 3.35 L Hgb 8.1 L Hct 26.0 L D MCV 78 L MCH 24 L RDW 18.5 H Plt Count Lymph % (Auto) Lymph # (Auto) Seg Neutrophils % Seg Neuts % (Manual) 91.0 H Lymphocytes % (Manual) 5.0 L Nucleated RBC % Seg Neutrophils # Man 21.8 H Lymphocytes # (Manual) PT INR APTT 62.9 H* D-Dimer > 13290 H Heparin Anti-Xa Level ABG pH POC ABG pCO2 POC ABG pO2 ABG Hemoglobin ABG Oxyhemoglobin ABG Sodium ABG Potassium ABG Chloride ABG Glucose Carboxyhemoglobin Sodium Potassium 5.1 H D Chloride BUN 27 H Creatinine Glucose 186 H POC Glucose Hemoglobin A1c Lactic Acid Calcium 7.8 L Phosphorus 5.50 H Magnesium 2.40 H Ferritin AST 126 H Alkaline Phosphatase 298 H Lactate Dehydrogenase 2677 H Total Creatine Kinase CK-MB (CK-2) CK-MB (CK-2) Rel Index Troponin T C-Reactive Protein NT-Pro-B Natriuret Pep Total Protein 4.9 L Albumin 2.6 L Triglycerides LDL Cholesterol Direct HDL Cholesterol Arterial Blood Glucose Arterial Blood Ionized Calcium Coronavirus (PCR) Crossmatch 12/08/20 12/08/20 12/09/20 21:00 22:03 06:00 WBC RBC Hgb Hct MCV MCH RDW Plt Count Lymph % (Auto) Lymph # (Auto) Seg Neutrophils % Seg Neuts % (Manual) Lymphocytes % (Manual) Nucleated RBC % Seg Neutrophils # Man Lymphocytes # (Manual) PT INR APTT D-Dimer Heparin Anti-Xa Level 0.85 H ABG pH 7.318 L POC ABG pCO2 51.9 H POC ABG pO2 74.6 L ABG Hemoglobin 8.9 L ABG Oxyhemoglobin 90.8 L ABG Sodium ABG Potassium 4.9 H ABG Chloride ABG Glucose 141 H Carboxyhemoglobin Sodium Potassium Chloride BUN Creatinine Glucose POC Glucose 163 H Hemoglobin A1c Lactic Acid Calcium Phosphorus Magnesium Ferritin AST Alkaline Phosphatase Lactate Dehydrogenase Total Creatine Kinase CK-MB (CK-2) CK-MB (CK-2) Rel Index Troponin T C-Reactive Protein NT-Pro-B Natriuret Pep Total Protein Albumin Triglycerides LDL Cholesterol Direct HDL Cholesterol Arterial Blood Glucose 141 H Arterial Blood Ionized Calcium 4.5 L Coronavirus (PCR) Crossmatch 12/09/20 12/09/20 12/09/20 08:13 11:53 13:08 WBC RBC Hgb Hct MCV MCH RDW Plt Count Lymph % (Auto) Lymph # (Auto) Seg Neutrophils % Seg Neuts % (Manual) Lymphocytes % (Manual) Nucleated RBC % Seg Neutrophils # Man Lymphocytes # (Manual) PT INR APTT D-Dimer Heparin Anti-Xa Level 0.94 H ABG pH POC ABG pCO2 50.7 H POC ABG pO2 156.4 H ABG Hemoglobin 8.7 L ABG Oxyhemoglobin ABG Sodium 134.9 L ABG Potassium 5.4 H ABG Chloride ABG Glucose 140 H Carboxyhemoglobin Sodium Potassium Chloride BUN Creatinine Glucose POC Glucose 127 H Hemoglobin A1c Lactic Acid Calcium Phosphorus Magnesium Ferritin AST Alkaline Phosphatase Lactate Dehydrogenase Total Creatine Kinase CK-MB (CK-2) CK-MB (CK-2) Rel Index Troponin T C-Reactive Protein NT-Pro-B Natriuret Pep Total Protein Albumin Triglycerides LDL Cholesterol Direct HDL Cholesterol Arterial Blood Glucose 140 H Arterial Blood Ionized Calcium 4.2 L Coronavirus (PCR) Crossmatch 12/09/20 12/09/20 12/09/20 13:08 13:08 13:08 WBC 20.8 H RBC 3.35 L Hgb 8.3 L Hct 26.2 L MCV 78 L MCH 25 L RDW 19.5 H Plt Count Lymph % (Auto) Lymph # (Auto) Seg Neutrophils % Seg Neuts % (Manual) Lymphocytes % (Manual) Nucleated RBC % Seg Neutrophils # Man Lymphocytes # (Manual) PT 15.2 H INR 1.15 H APTT 84.5 H* D-Dimer 4051.67 H Heparin Anti-Xa Level ABG pH POC ABG pCO2 POC ABG pO2 ABG Hemoglobin ABG Oxyhemoglobin ABG Sodium ABG Potassium ABG Chloride ABG Glucose Carboxyhemoglobin Sodium Potassium Chloride BUN 34 H Creatinine 1.4 H Glucose 156 H POC Glucose Hemoglobin A1c Lactic Acid Calcium 8.1 L Phosphorus Magnesium Ferritin AST 97 H Alkaline Phosphatase 241 H Lactate Dehydrogenase Total Creatine Kinase CK-MB (CK-2) CK-MB (CK-2) Rel Index Troponin T C-Reactive Protein NT-Pro-B Natriuret Pep Total Protein 5.2 L Albumin 2.7 L Triglycerides LDL Cholesterol Direct HDL Cholesterol Arterial Blood Glucose Arterial Blood Ionized Calcium Coronavirus (PCR) Crossmatch 12/09/20 12/09/20 12/09/20 13:08 13:08 13:08 WBC RBC Hgb Hct MCV MCH RDW Plt Count Lymph % (Auto) Lymph # (Auto) Seg Neutrophils % Seg Neuts % (Manual) Lymphocytes % (Manual) Nucleated RBC % Seg Neutrophils # Man Lymphocytes # (Manual) PT INR APTT D-Dimer Heparin Anti-Xa Level ABG pH POC ABG pCO2 POC ABG pO2 ABG Hemoglobin ABG Oxyhemoglobin ABG Sodium ABG Potassium ABG Chloride ABG Glucose Carboxyhemoglobin Sodium Potassium Chloride BUN Creatinine Glucose POC Glucose Hemoglobin A1c Lactic Acid 2.50 H* Calcium Phosphorus 4.70 H Magnesium 2.70 H Ferritin 472.6 H AST Alkaline Phosphatase Lactate Dehydrogenase 2146 H Total Creatine Kinase CK-MB (CK-2) CK-MB (CK-2) Rel Index Troponin T 0.487 H* D C-Reactive Protein 8.70 H NT-Pro-B Natriuret Pep Total Protein Albumin Triglycerides LDL Cholesterol Direct HDL Cholesterol Arterial Blood Glucose Arterial Blood Ionized Calcium Coronavirus (PCR) Crossmatch 12/09/20 12/09/20 12/09/20 13:08 17:17 23:43 WBC RBC Hgb Hct MCV MCH RDW Plt Count Lymph % (Auto) Lymph # (Auto) Seg Neutrophils % Seg Neuts % (Manual) Lymphocytes % (Manual) Nucleated RBC % Seg Neutrophils # Man Lymphocytes # (Manual) PT INR APTT D-Dimer Heparin Anti-Xa Level ABG pH POC ABG pCO2 POC ABG pO2 ABG Hemoglobin ABG Oxyhemoglobin ABG Sodium ABG Potassium ABG Chloride ABG Glucose Carboxyhemoglobin Sodium Potassium Chloride BUN Creatinine Glucose POC Glucose 179 H 144 H Hemoglobin A1c Lactic Acid Calcium Phosphorus Magnesium Ferritin AST Alkaline Phosphatase Lactate Dehydrogenase Total Creatine Kinase CK-MB (CK-2) CK-MB (CK-2) Rel Index Troponin T C-Reactive Protein NT-Pro-B Natriuret Pep 2396 H Total Protein Albumin Triglycerides LDL Cholesterol Direct HDL Cholesterol Arterial Blood Glucose Arterial Blood Ionized Calcium Coronavirus (PCR) Crossmatch 12/10/20 12/10/20 12/10/20 02:39 03:08 04:10 WBC 19.2 H RBC 2.76 L Hgb 6.7 L Hct 21.7 L MCV MCH 24 L RDW 19.3 H Plt Count Lymph % (Auto) Lymph # (Auto) Seg Neutrophils % Seg Neuts % (Manual) 95.0 H Lymphocytes % (Manual) 1.0 L Nucleated RBC % 3.0 H Seg Neutrophils # Man 18.2 H Lymphocytes # (Manual) 0.2 L PT INR APTT D-Dimer Heparin Anti-Xa Level ABG pH POC ABG pCO2 POC ABG pO2 ABG Hemoglobin 6.3 L ABG Oxyhemoglobin 93.8 L ABG Sodium ABG Potassium ABG Chloride 108.0 H ABG Glucose 237 H Carboxyhemoglobin Sodium Potassium Chloride BUN Creatinine Glucose POC Glucose Hemoglobin A1c Lactic Acid Calcium Phosphorus Magnesium Ferritin AST Alkaline Phosphatase Lactate Dehydrogenase Total Creatine Kinase CK-MB (CK-2) CK-MB (CK-2) Rel Index Troponin T C-Reactive Protein NT-Pro-B Natriuret Pep Total Protein Albumin Triglycerides LDL Cholesterol Direct HDL Cholesterol Arterial Blood Glucose 237 H Arterial Blood Ionized Calcium 4.3 L Coronavirus (PCR) Crossmatch See Detail 12/10/20 12/10/20 12/10/20 05:42 07:43 11:47 WBC RBC Hgb Hct MCV MCH RDW Plt Count Lymph % (Auto) Lymph # (Auto) Seg Neutrophils % Seg Neuts % (Manual) Lymphocytes % (Manual) Nucleated RBC % Seg Neutrophils # Man Lymphocytes # (Manual) PT INR APTT D-Dimer Heparin Anti-Xa Level ABG pH POC ABG pCO2 POC ABG pO2 ABG Hemoglobin ABG Oxyhemoglobin ABG Sodium ABG Potassium ABG Chloride ABG Glucose Carboxyhemoglobin Sodium Potassium Chloride BUN 39 H Creatinine 1.5 H Glucose 218 H POC Glucose 209 H 208 H Hemoglobin A1c Lactic Acid Calcium 7.9 L Phosphorus Magnesium Ferritin AST Alkaline Phosphatase Lactate Dehydrogenase Total Creatine Kinase CK-MB (CK-2) CK-MB (CK-2) Rel Index Troponin T C-Reactive Protein NT-Pro-B Natriuret Pep Total Protein Albumin Triglycerides LDL Cholesterol Direct HDL Cholesterol Arterial Blood Glucose Arterial Blood Ionized Calcium Coronavirus (PCR) Crossmatch 12/10/20 12/10/20 12/10/20 13:30 17:26 21:32 WBC RBC Hgb 7.8 L Hct 24.0 L MCV MCH RDW Plt Count Lymph % (Auto) Lymph # (Auto) Seg Neutrophils % Seg Neuts % (Manual) Lymphocytes % (Manual) Nucleated RBC % Seg Neutrophils # Man Lymphocytes # (Manual) PT INR APTT D-Dimer Heparin Anti-Xa Level ABG pH POC ABG pCO2 POC ABG pO2 ABG Hemoglobin ABG Oxyhemoglobin ABG Sodium ABG Potassium ABG Chloride ABG Glucose Carboxyhemoglobin Sodium Potassium Chloride BUN Creatinine Glucose POC Glucose 184 H 135 H Hemoglobin A1c Lactic Acid Calcium Phosphorus Magnesium Ferritin AST Alkaline Phosphatase Lactate Dehydrogenase Total Creatine Kinase CK-MB (CK-2) CK-MB (CK-2) Rel Index Troponin T C-Reactive Protein NT-Pro-B Natriuret Pep Total Protein Albumin Triglycerides LDL Cholesterol Direct HDL Cholesterol Arterial Blood Glucose Arterial Blood Ionized Calcium Coronavirus (PCR) Crossmatch 12/10/20 12/11/20 12/11/20 23:03 02:57 04:29 WBC RBC Hgb Hct MCV MCH RDW Plt Count Lymph % (Auto) Lymph # (Auto) Seg Neutrophils % Seg Neuts % (Manual) Lymphocytes % (Manual) Nucleated RBC % Seg Neutrophils # Man Lymphocytes # (Manual) PT INR APTT D-Dimer Heparin Anti-Xa Level ABG pH POC ABG pCO2 POC ABG pO2 ABG Hemoglobin 7.4 L ABG Oxyhemoglobin ABG Sodium ABG Potassium ABG Chloride 110.0 H ABG Glucose 250 H Carboxyhemoglobin Sodium Potassium Chloride BUN Creatinine Glucose POC Glucose 204 H Hemoglobin A1c Lactic Acid Calcium Phosphorus Magnesium Ferritin AST Alkaline Phosphatase Lactate Dehydrogenase Total Creatine Kinase CK-MB (CK-2) CK-MB (CK-2) Rel Index Troponin T C-Reactive Protein NT-Pro-B Natriuret Pep Total Protein Albumin Triglycerides 366 H LDL Cholesterol Direct HDL Cholesterol Arterial Blood Glucose 250 H Arterial Blood Ionized Calcium 4.4 L Coronavirus (PCR) Crossmatch 12/11/20 12/11/20 12/11/20 04:29 04:29 05:05 WBC 16.5 H RBC 2.60 L Hgb 7.0 L Hct 21.8 L MCV MCH 27 L RDW 18.4 H Plt Count 111 L Lymph % (Auto) Lymph # (Auto) Seg Neutrophils % Seg Neuts % (Manual) Lymphocytes % (Manual) Nucleated RBC % Seg Neutrophils # Man Lymphocytes # (Manual) PT INR APTT D-Dimer Heparin Anti-Xa Level ABG pH POC ABG pCO2 POC ABG pO2 ABG Hemoglobin ABG Oxyhemoglobin ABG Sodium ABG Potassium ABG Chloride ABG Glucose Carboxyhemoglobin Sodium Potassium Chloride 107.5 H BUN 45 H Creatinine 1.4 H Glucose 258 H POC Glucose 250 H Hemoglobin A1c Lactic Acid Calcium 7.7 L Phosphorus Magnesium 3.00 H Ferritin AST 78 H Alkaline Phosphatase 141 H Lactate Dehydrogenase Total Creatine Kinase CK-MB (CK-2) CK-MB (CK-2) Rel Index Troponin T C-Reactive Protein NT-Pro-B Natriuret Pep Total Protein 4.4 L Albumin 2.2 L Triglycerides LDL Cholesterol Direct HDL Cholesterol Arterial Blood Glucose Arterial Blood Ionized Calcium Coronavirus (PCR) Crossmatch 12/11/20 12/11/20 10:25 11:07 WBC RBC Hgb 6.7 L Hct 21.0 L MCV MCH RDW Plt Count Lymph % (Auto) Lymph # (Auto) Seg Neutrophils % Seg Neuts % (Manual) Lymphocytes % (Manual) Nucleated RBC % Seg Neutrophils # Man Lymphocytes # (Manual) PT INR APTT D-Dimer Heparin Anti-Xa Level ABG pH POC ABG pCO2 POC ABG pO2 ABG Hemoglobin ABG Oxyhemoglobin ABG Sodium ABG Potassium ABG Chloride ABG Glucose Carboxyhemoglobin Sodium Potassium Chloride BUN Creatinine Glucose POC Glucose 225 H Hemoglobin A1c Lactic Acid Calcium Phosphorus Magnesium Ferritin AST Alkaline Phosphatase Lactate Dehydrogenase Total Creatine Kinase CK-MB (CK-2) CK-MB (CK-2) Rel Index Troponin T C-Reactive Protein NT-Pro-B Natriuret Pep Total Protein Albumin Triglycerides LDL Cholesterol Direct HDL Cholesterol Arterial Blood Glucose Arterial Blood Ionized Calcium Coronavirus (PCR) Crossmatch Chest x-ray: pending Allied health notes reviewed: nursing
[2020-12-11] MEDS: VANCOMYCIN/NS 1 GM/250 ML 1 GM/250 ML BAG IV SCH (14:15)
[2020-12-11 16:22] LABS: INR 1.35 (0.87-1.13)
[2020-12-11 16:23] LABS: Partial Thromboplastin Time 29.2 Sec. (24.2-36.6)
[2020-12-11] MEDS ORDERED: SODIUM CHLORIDE 0.9% 500 ML 500 ML IV ONE ×2 (16:38→17:22)
[2020-12-11 16:43] LABS: Hemoglobin 6.3 gm/dl (10.1-14.3); Mean Corpuscular HGB Conc 32 % (30-34); Mean Corpuscular Volume 83 fl (79-97); Red Blood Count 2.38 M/mm3 (3.65-5.03); Red Cell Distribution Width 18.8 % (13.2-15.2)
--- NOTE | 2020-12-11 16:48 | Gastroenterology Progress Note ---
Assessment and Plan 1. GI: pt w/ COVID pneumonia and sepsis on Vent w/ recent noted brb in mouth and oral cavity - pt w/ bout of similar brb overnight w/o coffee grounds - with no coffee grounds or other signs GI bleeding unclear if blood noted is from GI source - given other active medical issues, poor prognosis will continue conservative approach - PPI iv drip - follow h/h, transfuse as needed - will follow Subjective Date of service: 12/11/20 Principal diagnosis: Ac hypoxemic resp failure; COVID-19 infection; Pneumonia; ARDS; DM II; HTN Interval history: - noted some brb in oral cavity and nose overnight per staff, no coffee grounds, melena or other signs bleeding noted Objective - Constitutional Vitals: Temp Pulse Resp BP Pulse Ox 98.6 F 79 24 108/50 100 12/11/20 16:30 12/11/20 16:39 12/11/20 16:00 12/11/20 16:39 12/11/20 16:39 General appearance: no acute distress - EENT Eyes: PERRL - Respiratory Respiratory: bilateral: rhonchi - Cardiovascular Rhythm: regular Heart Sounds: Present: S1 & S2 - Gastrointestinal General gastrointestinal: Present: soft, non-tender, non-distended - Labs CBC & Chem 7: 12/11/20 10:25 12/11/20 04:29 Labs: Laboratory Results - last 24 hr 12/10/20 12/10/20 12/10/20 04:10 17:26 21:32 WBC RBC Hgb Hct MCV MCH MCHC RDW Plt Count PT INR APTT Heparin Anti-Xa Level ABG pH POC ABG pCO2 POC ABG pO2 POC ABG HCO3 ABG O2 Saturation POC ABG Base Excess ABG Hemoglobin ABG Oxyhemoglobin ABG Methemoglobin ABG Sodium ABG Potassium ABG Chloride ABG Glucose Carboxyhemoglobin FiO2 % Sodium Potassium Chloride Carbon Dioxide Anion Gap BUN Creatinine Estimated GFR BUN/Creatinine Ratio Glucose POC Glucose 184 H 135 H Calcium Phosphorus Magnesium Total Bilirubin AST ALT Alkaline Phosphatase Total Protein Albumin Albumin/Globulin Ratio Triglycerides Arterial Blood Glucose Arterial Blood Ionized Calcium Crossmatch See Detail 12/10/20 12/11/20 12/11/20 23:03 02:57 04:29 WBC RBC Hgb Hct MCV MCH MCHC RDW Plt Count PT INR APTT Heparin Anti-Xa Level ABG pH 7.379 POC ABG pCO2 42.4 POC ABG pO2 86.7 POC ABG HCO3 24.5 ABG O2 Saturation 95.4 POC ABG Base Excess -0.6 ABG Hemoglobin 7.4 L ABG Oxyhemoglobin 94.0 ABG Methemoglobin 0.3 ABG Sodium 137.2 ABG Potassium 4.2 ABG Chloride 110.0 H ABG Glucose 250 H Carboxyhemoglobin 1.2 FiO2 % 60.0 Sodium Potassium Chloride Carbon Dioxide Anion Gap BUN Creatinine Estimated GFR BUN/Creatinine Ratio Glucose POC Glucose 204 H Calcium Phosphorus Magnesium Total Bilirubin AST ALT Alkaline Phosphatase Total Protein Albumin Albumin/Globulin Ratio Triglycerides 366 H Arterial Blood Glucose 250 H Arterial Blood Ionized Calcium 4.4 L Crossmatch 12/11/20 12/11/20 12/11/20 04:29 04:29 05:05 WBC 16.5 H RBC 2.60 L Hgb 7.0 L Hct 21.8 L MCV 84 MCH 27 L MCHC 32 RDW 18.4 H Plt Count 111 L PT INR APTT Heparin Anti-Xa Level ABG pH POC ABG pCO2 POC ABG pO2 POC ABG HCO3 ABG O2 Saturation POC ABG Base Excess ABG Hemoglobin ABG Oxyhemoglobin ABG Methemoglobin ABG Sodium ABG Potassium ABG Chloride ABG Glucose Carboxyhemoglobin FiO2 % Sodium 138 Potassium 4.6 Chloride 107.5 H Carbon Dioxide 22 Anion Gap 13 BUN 45 H Creatinine 1.4 H Estimated GFR 45 BUN/Creatinine Ratio 32 Glucose 258 H POC Glucose 250 H Calcium 7.7 L Phosphorus 4.20 Magnesium 3.00 H Total Bilirubin 0.40 AST 78 H ALT 26 Alkaline Phosphatase 141 H Total Protein 4.4 L Albumin 2.2 L Albumin/Globulin Ratio 1.0 Triglycerides Arterial Blood Glucose Arterial Blood Ionized Calcium Crossmatch 12/11/20 12/11/20 12/11/20 10:25 11:07 15:45 WBC RBC Hgb 6.7 L Hct 21.0 L MCV MCH MCHC RDW Plt Count PT INR APTT Heparin Anti-Xa Level < 0.10 L ABG pH POC ABG pCO2 POC ABG pO2 POC ABG HCO3 ABG O2 Saturation POC ABG Base Excess ABG Hemoglobin ABG Oxyhemoglobin ABG Methemoglobin ABG Sodium ABG Potassium ABG Chloride ABG Glucose Carboxyhemoglobin FiO2 % Sodium Potassium Chloride Carbon Dioxide Anion Gap BUN Creatinine Estimated GFR BUN/Creatinine Ratio Glucose POC Glucose 225 H Calcium Phosphorus Magnesium Total Bilirubin AST ALT Alkaline Phosphatase Total Protein Albumin Albumin/Globulin Ratio Triglycerides Arterial Blood Glucose Arterial Blood Ionized Calcium Crossmatch 12/11/20 15:45 WBC RBC Hgb Hct MCV MCH MCHC RDW Plt Count PT 17.3 H INR 1.35 H APTT 29.2 Heparin Anti-Xa Level ABG pH POC ABG pCO2 POC ABG pO2 POC ABG HCO3 ABG O2 Saturation POC ABG Base Excess ABG Hemoglobin ABG Oxyhemoglobin ABG Methemoglobin ABG Sodium ABG Potassium ABG Chloride ABG Glucose Carboxyhemoglobin FiO2 % Sodium Potassium Chloride Carbon Dioxide Anion Gap BUN Creatinine Estimated GFR BUN/Creatinine Ratio Glucose POC Glucose Calcium Phosphorus Magnesium Total Bilirubin AST ALT Alkaline Phosphatase Total Protein Albumin Albumin/Globulin Ratio Triglycerides Arterial Blood Glucose Arterial Blood Ionized Calcium Crossmatch
--- NOTE | 2020-12-11 16:51 | Progress Note ---
<RAFFYMACKENZIE NancyDesire - Last Filed: 12/11/20 17:24> Assessment and Plan Assessment and plan: This is a 65 year old female with HTN, DM, GI bleed in 2016 admitted with COVID 19 pna, sepsis, acute hypoxic respiratory failure and ACS NEURO: -Patient opens eyes and moves lower extremities spontaneously -Patient is sedated on propofol, fentanyl -RASS goal 0 to -1 -Avoid delirium -SAT trials when appropriate CV: AK, h/o HTN -Cardiology consulted, appreciate recommendations -Per cardiology patient will be medically treated -Echocardiogram shows LVEF 65 to 70%, mild LVH-> see report for details -Aspirin, Lipitor, Plavix -Blood pressure monitor per oscar RESP: Acute hypoxic respiratory failure -No Baseline home oxygen requirements -Patient was intubated 12/08 -Wean mechanical ventilation as tolerated -VAP bundle -Daily CXR and ABGs -See RT notes for titration of vent settings -ABGs and CXR reviewed GI: TF, GIB -nutrition consult -TF held d/t bleeding noted at mouth/nose -GI consulted, patient recommendations -IV PPI -Bowel regimen: [place] : Urinary retention, metabolic acidosis -Carpenter placed urinary retention, strict intake and output -Strict intake and output -Avoid nephrotoxic medication -Trend creatinine Heme: Anemia -Guaiac positive stool, remote history of GI bleed (2016) -GI consulted, appreciate recommendations -Trend H&H -Hemoglobin on admission 8.9 -Transfuse as needed for hgb<7 -Patient was on heparin drip was discontinued due to GI bleed -SCDs to bilateral lower extremities while in bed ID: COVID-19 pneumonia -Admits to known exposure -Presented at outside facility ([place]) with Covid symptom complaints, CT angio chest bilateral ground glass opacities, consistent with Covid -COVID-19 PCR positive -Zinc/vitamin D/vitamin C -Steroids x5 days -S/p remdesivir x5 days, s/p Actemra -Per ID: Continue cefepime and vancomycin for 5 days (12/08 through 12/13: -Contact/droplet precautions -ID consulted, appreciate recommendations -Anticoagulation per protocol as tolerated ENDO: DM2 -Uncontrolled, with hyperglycemia -Blood glucose every 6 -Schedule Lantus and SSI coverage prn -HgbA1C 9.5 -Avoid hypoglycemia The high probability of a clinically significant, sudden or life threatening deterioration of the [pulmonary] system(s) required my full and direct attention, intervention and personal management. The aggregate critical care time was [60] minutes. This time is in addition to time spent performing reported procedures but includes the following: [x] Data Review and interpretation [x] Patient assessment and monitoring of vital signs [x] Documentation [x] Medication orders and management Disposition Plan: icu Total Time Spent with Patient (Minutes): 60 History Interval history: 65-year-old -Senegalese female with history of hypertension, diabetes, and GI bleed who presents [facility] with complaints of shortness of breath, loss of taste and smell, malaise, fatigue and weakness. Of note this is a [facility] patient and [facility] has agreed to the admission. Patient presented to her local [facility] clinic yesterday evening with complaints of Covid symptoms x6 days. CT angio chest done at [facility] revealed extensive irregular bilateral groundglass opacities, and patient was referred to ED for further evaluation and treatment. Admits to known exposure, states that her friend whom she was in close contact with for several days recently tested positive for Covid. Endorses mild generalized headache, chest tightening, diarrhea, body aches, loss of smell and taste, and shortness of breath. 12/03: COVID-19 test is positive patient is high flow in progress 40liters/100%, will obtain pulmonary consultation. Will adjust glargine for better insulin coverage. Continue remdesivir and Solu-Medrol. Will monitor progression. Encourage prone positioning. We will give a dose of Lasix today. Would like to go to full dose anticoagulation but patient's anemia is precluding And also patient with noted positive stool and remote history of GI bleed in 2016 if no worsening renal function with the Lasix given today will consider CTA in the morning if patient is not improving 12/04: Patient seen and examined, considering worsening hypoxia and stable renal function will order CTA to rule out pulmonary embolism. Will give one-time full dose anticoagulation and continue the prophylactic dose as being careful due to history of GI bleed. And noted anemia. I discussed with the senior peoplesoft developer patient will transfer to [facility]. For now continue steroid therapy will give additional dose of Lasix today. Blood sugar is better controlled. Continue steroids and remdesivir. Patient also Getting Actmera also. Patient was able to prone today. 12/05: Patient s/p Actemra. Continue supportive care she is prone. She continues on steroids and remdesivir. We will give additional Lasix today and monitor renal function in a.m. She remains on high flow and nonrebreather mask/sign of the severity of her hypoxia 12/07: Patient remains on High flow, desaturating despite being on 100% highflow and NRBM, encourage to go back on BiPAP, she protested but now willing with improvement back to 89%. Patient is now on heparin drip, will obtain Chest xray. prongnosis -guarded 12/08: Patient still with hypoxic respiratory failure, worsening symptoms, EKG done concerning for inferior wall AK, STAT Troponin still pending. Discussed with the pulmonary doctor and also with the filler wiper. Patient due to worsening symptoms is unable to go to the cathlab as she is not stable due to significant hypoxic. The patient again denies any chest pain, BUT WONDER IF this is secondary to the ongoing Heparin drip. Will start on full dose Plavix, Low dose ASA, BB if tolerating. Transfer to the ICU. Patient is s.p Remdesivir and Actmera continue Steroids and Heparin drip. Plan discussed with the patient in detail Noted with Hypoglycemia, will adjust insulin Need to monitor Nutritional status Very guarded prognosis 12/09 no acute events overnight 12/10: LARISA, heparin gtt turned off d/t bleeding 12/11: Patient is anemic today and required transfusion of PRBC x1 which was ordered. Vascular surgery was consulted for evaluation of right radial artery. Patient's heparin drip was discontinued due to mouth/nose. venous US ordered and PT/INR/CBC and fibrinogen were ordered Hospitalist Physical - Constitutional Vitals: Temp Pulse Resp BP Pulse Ox 98.6 F 79 24 108/50 100 12/11/20 16:30 12/11/20 16:39 12/11/20 16:00 12/11/20 16:39 12/11/20 16:39 General appearance: Present: no acute distress, other (sedated) - EENT Eyes: Present: PERRL - Neck Neck: Absent: masses or JVD, cervical LAD - Respiratory Respiratory effort: normal Respiratory: bilateral: diminished - Cardiovascular Rhythm: regular - Extremities Extremities: no ischemia, pulses intact, pulses symmetrical, normal temperature, normal color Extremity abnormal: edema Peripheral Pulses: within normal limits - Abdominal General gastrointestinal: soft - Integumentary Integumentary: Present: warm, dry - Psychiatric Psychiatric: other (sedated) - Neurologic Neurologic: other (sedated) - Allied Health Allied health notes reviewed: nursing, RT, social work HEART Score - HEART Score Troponin: Troponin T 0.487 ng/mL (0.00-0.029) H* D 12/09/20 13:08 Results - Labs CBC & Chem 7: 12/11/20 16:21 12/11/20 04:29 Labs: Laboratory Last Values WBC 16.5 K/mm3 (4.5-11.0) H 12/11/20 04:29 RBC 2.60 M/mm3 (3.65-5.03) L 12/11/20 04:29 Hgb 6.7 gm/dl (10.1-14.3) L 12/11/20 10:25 Hct 21.0 % (30.3-42.9) L 12/11/20 10:25 MCV 84 fl (79-97) 12/11/20 04:29 MCH 27 pg (28-32) L 12/11/20 04:29 MCHC 32 % (30-34) 12/11/20 04:29 RDW 18.4 % (13.2-15.2) H 12/11/20 04:29 Plt Count 111 K/mm3 (140-440) L 12/11/20 04:29 Lymph % (Auto) 6.7 % (13.4-35.0) L 12/02/20 03:58 Nicollet % (Auto) 5.4 % (0.0-7.3) 12/02/20 03:58 Eos % (Auto) 0.0 % (0.0-4.3) 12/02/20 03:58 Baso % (Auto) 0.2 % (0.0-1.8) 12/02/20 03:58 Lymph # (Auto) 0.3 K/mm3 (1.2-5.4) L 12/02/20 03:58 Nicollet # (Auto) 0.3 K/mm3 (0.0-0.8) 12/02/20 03:58 Eos # (Auto) 0.0 K/mm3 (0.0-0.4) 12/02/20 03:58 Baso # (Auto) 0.0 K/mm3 (0.0-0.1) 12/02/20 03:58 Add Manual Diff Complete 12/10/20 02:39 Total Counted 100 12/10/20 02:39 Seg Neutrophils % Supervisor [employer] 12/10/20 02:39 Seg Neuts % (Manual) 95.0 % (40.0-70.0) H 12/10/20 02:39 Band Neutrophils % 2.0 % 12/10/20 02:39 Lymphocytes % (Manual) 1.0 % (13.4-35.0) L 12/10/20 02:39 Monocytes % (Manual) 2.0 % (0.0-7.3) 12/10/20 02:39 Eosinophils % (Manual) 1.0 % (0.0-4.3) 12/08/20 20:15 Nucleated RBC % 3.0 % (0.0-0.9) H 12/10/20 02:39 Seg Neutrophils # 4.4 K/mm3 (1.8-7.7) 12/02/20 03:58 Seg Neutrophils # Man 18.2 K/mm3 (1.8-7.7) H 12/10/20 02:39 Band Neutrophils # 0.4 K/mm3 12/10/20 02:39 Lymphocytes # (Manual) 0.2 K/mm3 (1.2-5.4) L 12/10/20 02:39 Abs React Lymphs (Man) 0.0 K/mm3 12/10/20 02:39 Monocytes # (Manual) 0.4 K/mm3 (0.0-0.8) 12/10/20 02:39 Eosinophils # (Manual) 0.0 K/mm3 (0.0-0.4) 12/10/20 02:39 Basophils # (Manual) 0.0 K/mm3 (0.0-0.1) 12/10/20 02:39 Metamyelocytes # 0.0 K/mm3 12/10/20 02:39 Myelocytes # 0.0 K/mm3 12/10/20 02:39 Promyelocytes # 0.0 K/mm3 12/10/20 02:39 Blast Cells # 0.0 K/mm3 12/10/20 02:39 WBC Morphology Not Reportable 12/10/20 02:39 Hypersegmented Neuts Not Reportable 12/10/20 02:39 Hyposegmented Neuts Not Reportable 12/10/20 02:39 Hypogranular Neuts Not Reportable 12/10/20 02:39 Smudge Cells Not Reportable 12/10/20 02:39 Toxic Granulation Not Reportable 12/10/20 02:39 Toxic Vacuolation Not Reportable 12/10/20 02:39 Dohle Bodies Not Reportable 12/10/20 02:39 Pelger-Huet Anomaly Not Reportable 12/10/20 02:39 Minna Rods Not Reportable 12/10/20 02:39 Platelet Estimate Consistent w auto 12/10/20 02:39 Clumped Platelets Not Reportable 12/10/20 02:39 Plt Clumps, EDTA Not Reportable 12/10/20 02:39 Large Platelets Few 12/10/20 02:39 Giant Platelets Not Reportable 12/10/20 02:39 Platelet Satelliting Not Reportable 12/10/20 02:39 Plt Morphology Comment Not Reportable 12/10/20 02:39 RBC Morphology Not Reportable 12/10/20 02:39 Dimorphic RBCs Not Reportable 12/10/20 02:39 Polychromasia Few 12/10/20 02:39 Hypochromasia 1+ 12/10/20 02:39 Poikilocytosis Not Reportable 12/10/20 02:39 Anisocytosis 1+ 12/10/20 02:39 Microcytosis Few 12/10/20 02:39 Macrocytosis Not Reportable 12/10/20 02:39 Spherocytes Not Reportable 12/10/20 02:39 Pappenheimer Bodies Not Reportable 12/10/20 02:39 Sickle Cells Not Reportable 12/10/20 02:39 Target Cells Not Reportable 12/10/20 02:39 Tear Drop Cells Few 12/10/20 02:39 Ovalocytes Not Reportable 12/10/20 02:39 Helmet Cells Not Reportable 12/10/20 02:39 [place] Bodies Not Reportable 12/10/20 02:39 Endeavor Rings Not Reportable 12/10/20 02:39 [place] Cells Not Reportable 12/10/20 02:39 Bite Cells Not Reportable 12/10/20 02:39 Crenated Cell Not Reportable 12/10/20 02:39 Elliptocytes Not Reportable 12/10/20 02:39 Acanthocytes (Spur) Not Reportable 12/10/20 02:39 Rouleaux Not Reportable 12/10/20 02:39 Hemoglobin C Crystals Not Reportable 12/10/20 02:39 Schistocytes Not Reportable 12/10/20 02:39 Malaria parasites Not Reportable 12/10/20 02:39 Po Bodies Not Reportable 12/10/20 02:39 Hem Pathologist Commnt No 12/10/20 02:39 PT 17.3 Sec. (12.2-14.9) H 12/11/20 15:45 INR 1.35 (0.87-1.13) H 12/11/20 15:45 APTT 29.2 Sec. (24.2-36.6) 12/11/20 15:45 Fibrinogen 260 mg/dl (211-480) 12/09/20 13:08 D-Dimer 4051.67 ng/mlDDU (0-234) H 12/09/20 13:08 Heparin Anti-Xa Level < 0.10 U.I./ml (0.3-0.7) L 12/11/20 15:45 ABG pH 7.379 (7.320-7.450) 12/11/20 02:57 POC ABG pCO2 42.4 mmHg (32.0-48.0) 12/11/20 02:57 POC ABG pO2 86.7 mmHg (83-108) 12/11/20 02:57 POC ABG HCO3 24.5 12/11/20 02:57 ABG O2 Saturation 95.4 (0-100) 12/11/20 02:57 POC ABG Base Excess -0.6 12/11/20 02:57 ABG Hemoglobin 7.4 (12.0-17.5) L 12/11/20 02:57 ABG Oxyhemoglobin 94.0 (94-98) 12/11/20 02:57 ABG Methemoglobin 0.3 (0.0-1.5) 12/11/20 02:57 ABG Sodium 137.2 mmol/L (136.0-145.0) 12/11/20 02:57 ABG Potassium 4.2 mmol/L (3.40-4.50) 12/11/20 02:57 ABG Chloride 110.0 mmol/L (98-107) H 12/11/20 02:57 ABG Glucose 250 mg/dL (65-95) H 12/11/20 02:57 Carboxyhemoglobin 1.2 (0.5-1.5) 12/11/20 02:57 FiO2 % 60.0 12/11/20 02:57 Sodium 138 mmol/L (137-145) 12/11/20 04:29 Potassium 4.6 mmol/L (3.6-5.0) 12/11/20 04:29 Chloride 107.5 mmol/L (98-107) H 12/11/20 04:29 Carbon Dioxide 22 mmol/L (22-30) 12/11/20 04:29 Anion Gap 13 mmol/L 12/11/20 04:29 BUN 45 mg/dL (7-17) H 12/11/20 04:29 Creatinine 1.4 mg/dL (0.6-1.2) H 12/11/20 04:29 Estimated GFR 45 ml/min 12/11/20 04:29 BUN/Creatinine Ratio 32 % 12/11/20 04:29 Glucose 258 mg/dL (65-100) H 12/11/20 04:29 POC Glucose 225 mg/dL (70-105) H 12/11/20 11:07 Hemoglobin A1c 9.5 % (4-6) H 12/02/20 06:15 Lactic Acid 2.50 mmol/L (0.7-2.0) H* 12/09/20 13:08 Calcium 7.7 mg/dL (8.4-10.2) L 12/11/20 04:29 Phosphorus 4.20 mg/dL (2.5-4.5) 12/11/20 04:29 Magnesium 3.00 mg/dL (1.7-2.3) H 12/11/20 04:29 Ferritin 472.6 ng/mL (10.0-200.0) H 12/09/20 13:08 Total Bilirubin 0.40 mg/dL (0.1-1.2) 12/11/20 04:29 AST 78 units/L (5-40) H 12/11/20 04:29 ALT 26 units/L (7-56) 12/11/20 04:29 Alkaline Phosphatase 141 units/L (35-129) H 12/11/20 04:29 Lactate Dehydrogenase 2146 units/L (91-180) H 12/09/20 13:08 Total Creatine Kinase 521 units/L (30-135) H 12/08/20 20:15 CK-MB (CK-2) 31.5 ng/mL (0.0-4.0) H 12/08/20 20:15 CK-MB (CK-2) Rel Index 6.0 (0-4) H 12/08/20 20:15 Troponin T 0.487 ng/mL (0.00-0.029) H* D 12/09/20 13:08 C-Reactive Protein 8.70 mg/dL (0.00-1.30) H 12/09/20 13:08 NT-Pro-B Natriuret Pep 2396 pg/mL (0-900) H 12/09/20 13:08 Total Protein 4.4 g/dL (6.3-8.2) L 12/11/20 04:29 Albumin 2.2 g/dL (3.9-5) L 12/11/20 04:29 Albumin/Globulin Ratio 1.0 % 12/11/20 04:29 Triglycerides 366 mg/dL (2-149) H 12/11/20 04:29 Cholesterol 88 mg/dL (50-199) 12/08/20 13:25 LDL Cholesterol Direct 30 mg/dL (50-130) L 12/08/20 13:25 HDL Cholesterol 35 mg/dL (40-59) L 12/08/20 13:25 Cholesterol/HDL Ratio 2.51 % 12/08/20 13:25 Procalcitonin 1.18 ng/mL (<0.15) 12/02/20 03:58 Arterial Blood Glucose 250 mg/dL (65-95) H 12/11/20 02:57 Arterial Blood Ionized Calcium 4.4 mg/dL (4.6-5.3) L 12/11/20 02:57 Coronavirus (PCR) Positive (Negative) A 12/02/20 08:15 Blood Type O POSITIVE 12/10/20 04:10 Antibody Screen Negative 12/10/20 04:10 Crossmatch See Detail 12/10/20 04:10 Carpenter/IV: Voiding Method Indwelling Catheter Active Medications - Current Medications Current Medications: Generic Name Dose Route Start Last Admin Trade Name Freq PRN Reason Stop Dose Admin Acetaminophen 650 mg 12/02/20 05:09 12/06/20 21:12 Acetaminophen 325 Mg Tab PO 650 mg Q4H PRN Administration Pain MILD(1-3)/Fever >100.5/LARA Albuterol 2.5 mg 12/02/20 05:09 Albuterol 2.5 Mg/3 Ml Nebu IH Q3HRT PRN Shortness Of Breath Lipase/Protease/Amylase 1 each 12/09/20 10:32 Lipase 10,500/Protease 25,000/Amylase 43,750 (Units) Dr Cap FEEDTUBE PRN PRN For Clogged Feeding Tube Ascorbic Acid 500 mg 12/03/20 22:00 12/11/20 09:37 Ascorbic Acid 500 Mg Tab PO 500 mg BID AZAEL Administration Aspirin 81 mg 12/08/20 13:00 12/11/20 09:37 Aspirin 81 Mg Tab Chew PO 81 mg QDAY AZAEL Administration Atorvastatin Calcium 40 mg 12/08/20 22:00 12/10/20 21:19 Atorvastatin 40 Mg Tab PO 40 mg QHS AZAEL Administration Cholecalciferol 5,000 unit 12/02/20 10:00 12/11/20 09:37 Cholecalciferol (Vit D3) 5,000 Unit Tab PO 5,000 unit DAILY AZAEL Administration Clopidogrel Bisulfate 75 mg 12/09/20 10:00 12/11/20 09:37 Clopidogrel 75 Mg Tab PO 75 mg QDAY AZAEL Administration Dextrose 50 ml 12/02/20 05:09 12/05/20 08:09 Dextrose 50% In Water (25gm) 50 Ml Syringe IV 50 ml Q30MIN PRN Administration Hypoglycemia Protocol Docusate Sodium 100 mg 12/02/20 10:00 12/11/20 09:37 Docusate Sodium 100 Mg Cap PO 100 mg BID AZAEL Administration Fentanyl 50 mcg 12/08/20 15:13 Fentanyl 100 Mcg/2 Ml Inj IV Q10MIN PRN ANALGESIA Hydrophilic Ointment 1 applic 12/08/20 15:56 Lip Therapy Vaseline TP Q2HR PRN Dry Lips Fentanyl Citrate 2,000 mcg in 100 mls @ 3.243 mls/hr 12/08/20 16:00 12/11/20 09:46 Fentanyl Drip Premix IV 4 mcg/kg/hr TITR AZAEL 12.973 mls/hr Administration Protocol 1 MCG/KG/HR NORepinephrine/NS 8 MG-250 ML 8 mg in 250 mls @ 3.75 mls/hr 12/08/20 16:00 12/11/20 14:30 Norepinephrine/Ns 8 Mg-250 Ml (Double Conc) IV 6 mcg/min TITRATE AZAEL 11.25 mls/hr Titration Protocol 2 MCG/MIN Propofol 1,000 mg in 100 mls @ 1.946 mls/hr 12/08/20 17:00 12/11/20 14:30 Diprivan 10 Mg/Ml IV 20 mcg/kg/min TITR AZAEL 7.784 mls/hr Titration Protocol 5 MCG/KG/MIN Sodium Chloride 500 mls @ 1 mls/hr 12/08/20 17:19 Nacl 0.9% 500 Ml IV DIRECT PRN ARTERIAL LINE FLUSH Cefepime HCl 2 gm in 100 mls @ 200 mls/hr 12/09/20 14:00 12/11/20 14:14 Cefepime/Ns 2 Gm/100 Ml IV 12/14/20 02:29 200 mls/hr Q12H AZAEL Administration Protocol Vancomycin HCl 1 gm in 250 mls @ 167.007 mls/hr 12/10/20 14:00 12/11/20 14:15 Vancomycin/Ns 1 Gm/250 Ml IV 12/13/20 15:30 167.007 mls/hr Q24H AZAEL Administration Vasopressin 20 unit/ Sodium 101 mls @ 9.09 mls/hr 12/10/20 04:00 12/11/20 12: 55 Chloride IV 0.03 units/min TITR AZAEL 9.09 mls/hr Administration Protocol 0.03 UNITS/MIN Pantoprazole Sodium 80 mg/ 100 mls @ 10 mls/hr 12/10/20 17:00 12/11/20 14:13 Sodium Chloride IV 8 mg/hr DIRECT AZAEL 10 mls/hr Administration 8 MG/HR Insulin Glargine 12 units 12/08/20 22:00 12/10/20 21:20 Insulin Glargine 100 Units/Ml SUB-Q 12 units QHS AZAEL Administration Insulin Human Lispro 0 unit 12/09/20 12:00 12/11/20 12:27 Insulin Lispro 100 Unit/Ml SUB-Q 4 unit Q6HR AZAEL Administration Protocol Metoclopramide HCl 5 mg 12/11/20 12:00 12/11/20 12:28 Metoclopramide 10 Mg/2 Ml Inj IV 5 mg Q6H AZAEL Administration Multi-Ingred Cream/Lotion/Oil/Oint 1 applic 12/08/20 15:56 Mineral Oil/Petrolatum, White Ophth Oint 3.5 Gm OU Q4HR PRN Dry Eye(s) Naloxone HCl 0.1 mg 12/02/20 05:09 Naloxone 0.4 Mg/1 Ml Inj IV Q2MIN PRN Res Rate </= 8 or 02 SAT < 92% Nitroglycerin 1 inch 12/08/20 14:00 12/11/20 09:38 Nitroglycerin 2% Oint 1 Gm TP 1 inch QIDNTG AZAEL Administration Protocol Ondansetron HCl 4 mg 12/02/20 05:09 Ondansetron 4 Mg/2 Ml Inj IV Q6H PRN Nausea And Vomiting Senna/Docusate Sodium 1 tab 12/08/20 22:00 12/11/20 09:37 Sennosides/Docusate Sodium 8.6/50 Mg Tab FEEDTUBE 1 tab BID AZAEL Administration Simple Syrup 30 ml 12/09/20 10:32 Simple Syrup 15 Ml FEEDTUBE PRN PRN Hypoglycemia Sodium Bicarbonate 325 mg 12/09/20 10:32 Sodium Bicarbonate 325 Mg Tab FEEDTUBE PRN PRN For Clogged Feeding Tube Sodium Chloride 10 ml 12/02/20 10:00 12/11/20 09:37 Sodium Chloride 0.9% 10 Ml Flush Syringe IV 10 ml BID AZAEL Administration Sodium Chloride 10 ml 12/02/20 05:09 Sodium Chloride 0.9% 10 Ml Flush Syringe IV PRN PRN LINE FLUSH Zinc Sulfate 220 mg 12/02/20 10:00 12/11/20 09:37 Zinc Sulfate 220 Mg Cap PO 220 mg QDAY AZAEL Administration Nutrition/Malnutrition Assess - Dietary Evaluation Nutrition/Malnutrition Findings: Nutrition Notes Start: 12/03/20 10:33 Freq: Status: Active Protocol: Document 12/11/20 09:31 MK (Rec: 12/11/20 09:34 [id number]) Nutrition Notes Initial or Follow up Brief Note Current Diagnosis Respiratory Failure Other Pertinent Diagnosis Covid +, Hyperglycemia Current Diet Vital AF at 45 ml/hr Subjective/Other Information TF off due to pt bleeding large amount from nose and mouth with possible hematemesis yesterday. Per MD on chest xray, TF needs to be advanced further into the dudenum. Nutrition Intervention Follow-Up By: 12/14/20 Additional Comments F/u: TF restart and tolerance <JEREMY INMAN - Last Filed: 12/12/20 14:38> History Interval history: I saw and evaluated the patient. Discussed with the nurse practitioner and agree with their findings and plan as documented in this note. Hospitalist Physical - Constitutional Vitals: Temp Pulse Resp BP Pulse Ox 100 F H 96 H 24 138/73 100 12/12/20 08:00 12/12/20 11:01 12/12/20 11:01 12/12/20 11:01 12/12/20 11:01 HEART Score - HEART Score Troponin: Troponin T 0.487 ng/mL (0.00-0.029) H* D 12/09/20 13:08 Results - Labs CBC & Chem 7: 12/12/20 08:10 12/12/20 06:04 Labs: Laboratory Last Values WBC 22.1 K/mm3 (4.5-11.0) H 12/12/20 06:04 RBC 3.21 M/mm3 (3.65-5.03) L 12/12/20 06:04 Hgb 8.2 gm/dl (10.1-14.3) L 12/12/20 08:10 Hct 25.9 % (30.3-42.9) L 12/12/20 08:10 MCV 84 fl (79-97) 12/12/20 06:04 MCH 26 pg (28-32) L 12/12/20 06:04 MCHC 31 % (30-34) 12/12/20 06:04 RDW 19.5 % (13.2-15.2) H 12/12/20 06:04 Plt Count 106 K/mm3 (140-440) L 12/12/20 06:04 Lymph % (Auto) 6.7 % (13.4-35.0) L 12/02/20 03:58 Nicollet % (Auto) 5.4 % (0.0-7.3) 12/02/20 03:58 Eos % (Auto) 0.0 % (0.0-4.3) 12/02/20 03:58 Baso % (Auto) 0.2 % (0.0-1.8) 12/02/20 03:58 Lymph # (Auto) 0.3 K/mm3 (1.2-5.4) L 12/02/20 03:58 [place] # (Auto) 0.3 K/mm3 (0.0-0.8) 12/02/20 03:58 Eos # (Auto) 0.0 K/mm3 (0.0-0.4) 12/02/20 03:58 Baso # (Auto) 0.0 K/mm3 (0.0-0.1) 12/02/20 03:58 Add Manual Diff Complete 12/10/20 02:39 Total Counted 100 12/10/20 02:39 Seg Neutrophils % Supervisor [employer] 12/10/20 02:39 Seg Neuts % (Manual) 95.0 % (40.0-70.0) H 12/10/20 02:39 Band Neutrophils % 2.0 % 12/10/20 02:39 Lymphocytes % (Manual) 1.0 % (13.4-35.0) L 12/10/20 02:39 Monocytes % (Manual) 2.0 % (0.0-7.3) 12/10/20 02:39 Eosinophils % (Manual) 1.0 % (0.0-4.3) 12/08/20 20:15 Nucleated RBC % 3.0 % (0.0-0.9) H 12/10/20 02:39 Seg Neutrophils # 4.4 K/mm3 (1.8-7.7) 12/02/20 03:58 Seg Neutrophils # Man 18.2 K/mm3 (1.8-7.7) H 12/10/20 02:39 Band Neutrophils # 0.4 K/mm3 12/10/20 02:39 Lymphocytes # (Manual) 0.2 K/mm3 (1.2-5.4) L 12/10/20 02:39 Abs React Lymphs (Man) 0.0 K/mm3 12/10/20 02:39 Monocytes # (Manual) 0.4 K/mm3 (0.0-0.8) 12/10/20 02:39 Eosinophils # (Manual) 0.0 K/mm3 (0.0-0.4) 12/10/20 02:39 Basophils # (Manual) 0.0 K/mm3 (0.0-0.1) 12/10/20 02:39 Metamyelocytes # 0.0 K/mm3 12/10/20 02:39 Myelocytes # 0.0 K/mm3 12/10/20 02:39 Promyelocytes # 0.0 K/mm3 12/10/20 02:39 Blast Cells # 0.0 K/mm3 12/10/20 02:39 WBC Morphology Not Reportable 12/10/20 02:39 Hypersegmented Neuts Not Reportable 12/10/20 02:39 Hyposegmented Neuts Not Reportable 12/10/20 02:39 Hypogranular Neuts Not Reportable 12/10/20 02:39 Smudge Cells Not Reportable 12/10/20 02:39 Toxic Granulation Not Reportable 12/10/20 02:39 Toxic Vacuolation Not Reportable 12/10/20 02:39 Dohle Bodies Not Reportable 12/10/20 02:39 Pelger-Huet Anomaly Not Reportable 12/10/20 02:39 Minna Rods Not Reportable 12/10/20 02:39 Platelet Estimate Consistent w auto 12/10/20 02:39 Clumped Platelets Not Reportable 12/10/20 02:39 Plt Clumps, EDTA Not Reportable 12/10/20 02:39 Large Platelets Few 12/10/20 02:39 Giant Platelets Not Reportable 12/10/20 02:39 Platelet Satelliting Not Reportable 12/10/20 02:39 Plt Morphology Comment Not Reportable 12/10/20 02:39 RBC Morphology Not Reportable 12/10/20 02:39 Dimorphic RBCs Not Reportable 12/10/20 02:39 Polychromasia Few 12/10/20 02:39 Hypochromasia 1+ 12/10/20 02:39 Poikilocytosis Not Reportable 12/10/20 02:39 Anisocytosis 1+ 12/10/20 02:39 Microcytosis Few 12/10/20 02:39 Macrocytosis Not Reportable 12/10/20 02:39 Spherocytes Not Reportable 12/10/20 02:39 Pappenheimer Bodies Not Reportable 12/10/20 02:39 Sickle Cells Not Reportable 12/10/20 02:39 Target Cells Not Reportable 12/10/20 02:39 Tear Drop Cells Few 12/10/20 02:39 Ovalocytes Not Reportable 12/10/20 02:39 Helmet Cells Not Reportable 12/10/20 02:39 [place] Bodies Not Reportable 12/10/20 02:39 Endeavor Rings Not Reportable 12/10/20 02:39 Goyo Cells Not Reportable 12/10/20 02:39 Bite Cells Not Reportable 12/10/20 02:39 Crenated Cell Not Reportable 12/10/20 02:39 Elliptocytes Not Reportable 12/10/20 02:39 Acanthocytes (Spur) Not Reportable 12/10/20 02:39 Rouleaux Not Reportable 12/10/20 02:39 Hemoglobin C Crystals Not Reportable 12/10/20 02:39 Schistocytes Not Reportable 12/10/20 02:39 Malaria parasites Not Reportable 12/10/20 02:39 Po Bodies Not Reportable 12/10/20 02:39 Hem Pathologist Commnt No 12/10/20 02:39 PT 17.3 Sec. (12.2-14.9) H 12/11/20 15:45 INR 1.35 (0.87-1.13) H 12/11/20 15:45 APTT 29.2 Sec. (24.2-36.6) 12/11/20 15:45 Fibrinogen 100 mg/dl (211-480) L* 12/12/20 08:10 D-Dimer > 52785 ng/mlDDU (0-234) H 12/12/20 08:10 Heparin Anti-Xa Level < 0.10 U.I./ml (0.3-0.7) L 12/11/20 15:45 ABG pH 7.380 (7.320-7.450) 12/12/20 04:00 POC ABG pCO2 41.5 mmHg (32.0-48.0) 12/12/20 04:00 POC ABG pO2 79.5 mmHg (83-108) L 12/12/20 04:00 POC ABG HCO3 24.0 12/12/20 04:00 ABG O2 Saturation 94.7 (0-100) 12/12/20 04:00 POC ABG Base Excess -1.1 12/12/20 04:00 ABG Hemoglobin 8.8 (12.0-17.5) L 12/12/20 04:00 ABG Oxyhemoglobin 93.5 (94-98) L 12/12/20 04:00 ABG Methemoglobin 0.3 (0.0-1.5) 12/12/20 04:00 ABG Sodium 140.9 mmol/L (136.0-145.0) 12/12/20 04:00 ABG Potassium 4.4 mmol/L (3.40-4.50) 12/12/20 04:00 ABG Chloride 114.0 mmol/L (98-107) H 12/12/20 04:00 ABG Glucose 257 mg/dL (65-95) H 12/12/20 04:00 Carboxyhemoglobin 1.0 (0.5-1.5) 12/12/20 04:00 FiO2 % 70.0 12/12/20 04:00 Sodium 146 mmol/L (137-145) H D 12/12/20 06:04 Potassium 4.3 mmol/L (3.6-5.0) 12/12/20 06:04 Chloride 116.0 mmol/L (98-107) H 12/12/20 06:04 Carbon Dioxide 20 mmol/L (22-30) L 12/12/20 06:04 Anion Gap 14 mmol/L 12/12/20 06:04 BUN 40 mg/dL (7-17) H 12/12/20 06:04 Creatinine 1.0 mg/dL (0.6-1.2) 12/12/20 06:04 Estimated GFR > 60 ml/min 12/12/20 06:04 BUN/Creatinine Ratio 40 % 12/12/20 06:04 Glucose 234 mg/dL (65-100) H 12/12/20 06:04 POC Glucose 215 mg/dL (70-105) H 12/12/20 11:49 Hemoglobin A1c 9.5 % (4-6) H 12/02/20 06:15 Lactic Acid 2.50 mmol/L (0.7-2.0) H* 12/09/20 13:08 Calcium 7.5 mg/dL (8.4-10.2) L 12/12/20 06:04 Phosphorus 3.00 mg/dL (2.5-4.5) D 12/12/20 06:04 Magnesium 3.10 mg/dL (1.7-2.3) H 12/12/20 06:04 Ferritin 240.7 ng/mL (10.0-200.0) H 12/12/20 06:04 Total Bilirubin 0.40 mg/dL (0.1-1.2) 12/11/20 04:29 AST 78 units/L (5-40) H 12/11/20 04:29 ALT 26 units/L (7-56) 12/11/20 04:29 Alkaline Phosphatase 141 units/L (35-129) H 12/11/20 04:29 Lactate Dehydrogenase 1274 units/L (91-180) H 12/12/20 06:04 Total Creatine Kinase 521 units/L (30-135) H 12/08/20 20:15 CK-MB (CK-2) 31.5 ng/mL (0.0-4.0) H 12/08/20 20:15 CK-MB (CK-2) Rel Index 6.0 (0-4) H 12/08/20 20:15 Troponin T 0.487 ng/mL (0.00-0.029) H* D 12/09/20 13:08 C-Reactive Protein 2.80 mg/dL (0.00-1.30) H 12/12/20 06:04 NT-Pro-B Natriuret Pep 2396 pg/mL (0-900) H 12/09/20 13:08 Total Protein 4.4 g/dL (6.3-8.2) L 12/11/20 04:29 Albumin 2.2 g/dL (3.9-5) L 12/11/20 04:29 Albumin/Globulin Ratio 1.0 % 12/11/20 04:29 Triglycerides 366 mg/dL (2-149) H 12/11/20 04:29 Cholesterol 88 mg/dL (50-199) 12/08/20 13:25 LDL Cholesterol Direct 30 mg/dL (50-130) L 12/08/20 13:25 HDL Cholesterol 35 mg/dL (40-59) L 12/08/20 13:25 Cholesterol/HDL Ratio 2.51 % 12/08/20 13:25 Procalcitonin 1.18 ng/mL (<0.15) 12/02/20 03:58 Arterial Blood Glucose 257 mg/dL (65-95) H 12/12/20 04:00 Arterial Blood Ionized Calcium 4.7 mg/dL (4.6-5.3) 12/12/20 04:00 Coronavirus (PCR) Positive (Negative) A 12/02/20 08:15 Blood Type O POSITIVE 12/10/20 04:10 Antibody Screen Negative 12/10/20 04:10 Crossmatch See Detail 12/10/20 04:10 Microbiology: Microbiology 12/11/20 16:39 Tracheal Aspirate Sputum Culture - Preliminary Carpenter/IV: Voiding Method External Female Catheter Active Medications - Current Medications Current Medications: Generic Name Dose Route Start Last Admin Trade Name Freq PRN Reason Stop Dose Admin Acetaminophen 650 mg 12/02/20 05:09 12/06/20 21:12 Acetaminophen 325 Mg Tab PO 650 mg Q4H PRN Administration Pain MILD(1-3)/Fever >100.5/LARA Albuterol 2.5 mg 12/02/20 05:09 Albuterol 2.5 Mg/3 Ml Nebu IH Q3HRT PRN Shortness Of Breath Lipase/Protease/Amylase 1 each 12/09/20 10:32 Lipase 10,500/Protease 25,000/Amylase 43,750 (Units) Dr Fong FEEDTUBE PRN PRN For Clogged Feeding Tube Ascorbic Acid 500 mg 12/03/20 22:00 12/12/20 09:38 Ascorbic Acid 500 Mg Tab PO 500 mg BID AZAEL Administration Aspirin 81 mg 12/08/20 13:00 12/12/20 09:38 Aspirin 81 Mg Tab Chew PO 81 mg QDAY AZAEL Administration Atorvastatin Calcium 40 mg 12/08/20 22:00 12/11/20 21:24 Atorvastatin 40 Mg Tab PO 40 mg QHS AZAEL Administration Cholecalciferol 5,000 unit 12/02/20 10:00 12/12/20 09:38 Cholecalciferol (Vit D3) 5,000 Unit Tab PO 5,000 unit DAILY AZAEL Administration Clopidogrel Bisulfate 75 mg 12/09/20 10:00 12/12/20 09:38 Clopidogrel 75 Mg Tab PO 75 mg QDAY AZAEL Administration Dextrose 50 ml 12/02/20 05:09 12/05/20 08:09 Dextrose 50% In Water (25gm) 50 Ml Syringe IV 50 ml Q30MIN PRN Administration Hypoglycemia Protocol Docusate Sodium 100 mg 12/02/20 10:00 12/12/20 09:38 Docusate Sodium 100 Mg Cap PO 100 mg BID AZAEL Administration Fentanyl 50 mcg 12/08/20 15:13 Fentanyl 100 Mcg/2 Ml Inj IV Q10MIN PRN ANALGESIA Hydrophilic Ointment 1 applic 12/08/20 15:56 Lip Therapy Vaseline TP Q2HR PRN Dry Lips Fentanyl Citrate 2,000 mcg in 100 mls @ 3.243 mls/hr 12/08/20 16:00 12/12/20 13:46 Fentanyl Drip Premix IV 4 mcg/kg/hr TITR AZAEL 12.973 mls/hr Administration Protocol 1 MCG/KG/HR NORepinephrine/NS 8 MG-250 ML 8 mg in 250 mls @ 3.75 mls/hr 12/08/20 16:00 12/12/20 11:07 Norepinephrine/Ns 8 Mg-250 Ml (Double Conc) IV 6 mcg/min TITRATE AZAEL 11.25 mls/hr Administration Protocol 2 MCG/MIN Propofol 1,000 mg in 100 mls @ 1.946 mls/hr 12/08/20 17:00 12/12/20 11:07 Diprivan 10 Mg/Ml IV 20 mcg/kg/min TITR AZAEL 7.784 mls/hr Administration Protocol 5 MCG/KG/MIN Sodium Chloride 500 mls @ 1 mls/hr 12/08/20 17:19 Nacl 0.9% 500 Ml IV DIRECT PRN ARTERIAL LINE FLUSH Cefepime HCl 2 gm in 100 mls @ 200 mls/hr 12/09/20 14:00 12/12/20 14:29 Cefepime/Ns 2 Gm/100 Ml IV 12/14/20 02:29 200 mls/hr Q12H AZAEL Administration Protocol Vancomycin HCl 1 gm in 250 mls @ 167.007 mls/hr 12/10/20 14:00 12/12/20 14:28 Vancomycin/Ns 1 Gm/250 Ml IV 12/13/20 15:30 167.007 mls/hr Q24H AZAEL Administration Vasopressin 20 unit/ Sodium 101 mls @ 9.09 mls/hr 12/10/20 04:00 12/12/20 0 0:15 Chloride IV 0.03 units/min TITR AZAEL 9.09 mls/hr Administration Protocol 0.03 UNITS/MIN Pantoprazole Sodium 80 mg/ 100 mls @ 10 mls/hr 12/10/20 17:00 12/12/20 14:28 Sodium Chloride IV 8 mg/hr DIRECT AZAEL 10 mls/hr Administration 8 MG/HR Insulin Glargine 15 units 12/12/20 22:00 Insulin Glargine 100 Units/Ml SUB-Q QHS AZAEL Insulin Human Lispro 0 unit 12/09/20 12:00 12/12/20 13:46 Insulin Lispro 100 Unit/Ml SUB-Q 6 unit Q6HR [facility] Administration Protocol Metoclopramide HCl 5 mg 12/11/20 12:00 12/12/20 14:29 Metoclopramide 10 Mg/2 Ml Inj IV 5 mg Q6H [facility] Administration Multi-Ingred Cream/Lotion/Oil/Oint 1 applic 12/08/20 15:56 Mineral Oil/Petrolatum, White Ophth Oint 3.5 Gm OU Q4HR PRN Dry Eye(s) Naloxone HCl 0.1 mg 12/02/20 05:09 Naloxone 0.4 Mg/1 Ml Inj IV Q2MIN PRN Res Rate </= 8 or 02 SAT < 92% Nitroglycerin 1 inch 12/08/20 14:00 12/12/20 14:28 Nitroglycerin 2% Oint 1 Gm TP 1 inch QIDNTG [facility] Administration Protocol Ondansetron HCl 4 mg 12/02/20 05:09 Ondansetron 4 Mg/2 Ml Inj IV Q6H PRN Nausea And Vomiting Senna/Docusate Sodium 1 tab 12/08/20 22:00 12/12/20 09:36 Sennosides/Docusate Sodium 8.6/50 Mg Tab FEEDTUBE 1 tab BID AZAEL Administration Simple Syrup 30 ml 12/09/20 10:32 Simple Syrup 15 Ml FEEDTUBE PRN PRN Hypoglycemia Sodium Bicarbonate 325 mg 12/09/20 10:32 Sodium Bicarbonate 325 Mg Tab FEEDTUBE PRN PRN For Clogged Feeding Tube Sodium Chloride 10 ml 12/02/20 10:00 12/12/20 09:39 Sodium Chloride 0.9% 10 Ml Flush Syringe IV 10 ml BID AZAEL Administration Sodium Chloride 10 ml 12/02/20 05:09 Sodium Chloride 0.9% 10 Ml Flush Syringe IV PRN PRN LINE FLUSH Zinc Sulfate 220 mg 12/02/20 10:00 12/12/20 09:37 Zinc Sulfate 220 Mg Cap PO 220 mg QDAY AZAEL Administration Nutrition/Malnutrition Assess - Dietary Evaluation Nutrition/Malnutrition Findings: Nutrition Notes Start: 12/03/20 10:33 Freq: Status: Active Protocol: Document 12/11/20 09:31 (Rec: 12/11/20 09:34 [email or web address]) Nutrition Notes Initial or Follow up Brief Note Current Diagnosis Respiratory Failure Other Pertinent Diagnosis Covid +, Hyperglycemia Current Diet Vital AF at 45 ml/hr Subjective/Other Information TF off due to pt bleeding large amount from nose and mouth with possible hematemesis yesterday. Per MD on chest xray, TF needs to be advanced further into the dudenum. Nutrition Intervention Follow-Up By: 12/14/20 Additional Comments F/u: TF restart and tolerance
--- NOTE | 2020-12-11 16:55 | Progress Note ---
<TEJASFredMACKENZIE CruzDesire - Last Filed: 12/11/20 17:40> Assessment and Plan Assessment and plan: This is a 65 year old female with HTN, DM, GI bleed in 2016 admitted with COVID 19 pna, sepsis, acute hypoxic respiratory failure and ACS NEURO: -Patient opens eyes and moves lower extremities spontaneously -Patient is sedated on propofol, fentanyl -RASS goal 0 to -1 -Avoid delirium -SAT trials when appropriate CV: FL, h/o HTN -Cardiology consulted, appreciate recommendations -Per cardiology patient will be medically treated -Echocardiogram shows LVEF 65 to 70%, mild LVH-> see report for details -Aspirin, Lipitor, Plavix -Blood pressure monitor per protocol -Mclean was placed 12/08 but removed today d/t infiltration/no waveform/dusky fingers (thumb and index) -repeat oscar was attempted but unable to see waveform despite US confirmation that I was in vessel and arterial blood flow. Hand noted to be swelling and pressure was held by Dr. Robert for over 5 minutes. -Vascular surgery consulted and US obtained. RESP: Acute hypoxic respiratory failure -No Baseline home oxygen requirements -Patient was intubated 12/08 -Wean mechanical ventilation as tolerated -VAP bundle -Daily CXR and ABGs -12/11 vent settings: Assist control tidal volume 500, rate of 30, PEEP of 14, 90% FiO2 -12/11 ABG and CXR reviewed She is in her room GI: TF, GIB -nutrition consult -TF held d/t bleeding noted at mouth/nose -GI consulted, patient recommendations -IV PPI -Bowel regimen: Sennakot -24 hour +666ml : Urinary retention, metabolic acidosis -Carpenter placed urinary retention, strict intake and output -Strict intake and output -Avoid nephrotoxic medication -Trend creatinine Heme: Anemia -Guaiac positive stool, remote history of GI bleed (2016) -GI consulted, appreciate recommendations -Trend H&H -Hemoglobin on admission 8.9 -Patient will be transfused today 1 unit -Transfuse as needed for hgb<7 -Patient was on heparin drip was discontinued due to GI bleed -SCDs to bilateral lower extremities while in bed ID: COVID-19 pneumonia -Admits to known exposure -Presented at outside facility ([facility]) with Covid symptom complaints, CT angio chest bilateral ground glass opacities, consistent with Covid -COVID-19 PCR positive -Zinc/vitamin D/vitamin C -Steroids x5 days -S/p remdesivir x5 days, s/p Actemra -Per ID: Continue cefepime and vancomycin for 5 days (12/08 through 12/13: -Contact/droplet precautions -ID consulted, appreciate recommendations -Anticoagulation per protocol as tolerated ENDO: DM2 -Uncontrolled, with hyperglycemia -Blood glucose every 6 -Schedule Lantus and SSI coverage prn -HgbA1C 9.5 -Avoid hypoglycemia The high probability of a clinically significant, sudden or life threatening deterioration of the [pulmonary] system(s) required my full and direct attention, intervention and personal management. The aggregate critical care time was [90] minutes. This time is in addition to time spent performing reported procedures but includes the following: [x] Data Review and interpretation [x] Patient assessment and monitoring of vital signs [x] Documentation [x] Medication orders and management Disposition Plan: icu Total Time Spent with Patient (Minutes): 90 History Interval history: 65-year-old -Iranian female with history of hypertension, diabetes, and GI bleed who [facility] with complaints of shortness of breath, loss of taste and smell, malaise, fatigue and weakness. Of note this is a [facility] patient and [facility] has agreed to the admission. Patient presented to her local [facility] clinic yesterday evening with complaints of Covid symptoms x6 days. CT angio chest done at [facility] revealed extensive irregular bilateral groundglass opacities, and patient was referred to ED for further evaluation and treatment. Admits to known exposure, states that her friend whom she was in close contact with for several days recently tested positive for Covid. Endorses mild generalized headache, chest tightening, diarrhea, body aches, loss of smell and taste, and shortness of breath. 12/03: COVID-19 test is positive patient is high flow in progress 40liters/100%, will obtain pulmonary consultation. Will adjust glargine for better insulin coverage. Continue remdesivir and Solu-Medrol. Will monitor progression. Encourage prone positioning. We will give a dose of Lasix today. Would like to go to full dose anticoagulation but patient's anemia is precluding And also patient with noted positive stool and remote history of GI bleed in 2016 if no worsening renal function with the Lasix given today will consider CTA in the morning if patient is not improving 12/04: Patient seen and examined, considering worsening hypoxia and stable renal function will order CTA to rule out pulmonary embolism. Will give one-time full dose anticoagulation and continue the prophylactic dose as being careful due to history of GI bleed. And noted anemia. I discussed with the student counselor patient will transfer to [facility]. For now continue steroid therapy will give additional dose of Lasix today. Blood sugar is better controlled. Continue steroids and remdesivir. Patient also Getting Actmera also. Patient was able to prone today. 12/05: Patient s/p Actemra. Continue supportive care she is prone. She continues on steroids and remdesivir. We will give additional Lasix today and monitor renal function in a.m. She remains on high flow and nonrebreather mask/sign of the severity of her hypoxia 12/07: Patient remains on High flow, desaturating despite being on 100% highflow and NRBM, encourage to go back on BiPAP, she protested but now willing with improvement back to 89%. Patient is now on heparin drip, will obtain Chest xray. prongnosis -guarded 12/08: Patient still with hypoxic respiratory failure, worsening symptoms, EKG done concerning for inferior wall FL, STAT Troponin still pending. Discussed with the pulmonary doctor and also with the peeled potato inspector. Patient due to worsening symptoms is unable to go to the cathlab as she is not stable due to significant hypoxic. The patient again denies any chest pain, BUT WONDER IF this is secondary to the ongoing Heparin drip. Will start on full dose Plavix, Low dose ASA, BB if tolerating. Transfer to the ICU. Patient is s.p Remdesivir and Actmera continue Steroids and Heparin drip. Plan discussed with the patient in detail Noted with Hypoglycemia, will adjust insulin Need to monitor Nutritional status Very guarded prognosis 12/09 no acute events overnight 12/10: LARISA, heparin gtt turned off d/t bleeding 12/11: Patient is anemic today and required transfusion of PRBC x1 which was ordered. Vascular surgery was consulted for evaluation of right radial artery. Patient's heparin drip was discontinued due to mouth/nose. venous US ordered and PT/INR/CBC and fibrinogen were ordered Hospitalist Physical - Constitutional Vitals: Temp Pulse Resp BP Pulse Ox 98.6 F 79 24 108/50 100 12/11/20 16:30 08/27/21 16:39 12/11/20 16:00 12/11/20 16:39 12/11/20 16:39 General appearance: Present: no acute distress - EENT Eyes: Present: PERRL ENT: dentition normal - Neck Neck: Present: normal ROM - Respiratory Respiratory effort: normal Respiratory: bilateral: diminished - Cardiovascular Rhythm: regular - Extremities Extremities: no ischemia, pulses intact, pulses symmetrical Extremity abnormal: edema, cold Peripheral Pulses: within normal limits - Abdominal General gastrointestinal: soft, non-tender, non-distended - Integumentary Integumentary: Present: warm, dry - Psychiatric Psychiatric: other (sedated) - Neurologic Neurologic: other (sedated) HEART Score - HEART Score Troponin: Troponin T 0.487 ng/mL (0.00-0.029) H* D 12/09/20 13:08 Results - Labs CBC & Chem 7: 12/11/20 16:21 12/11/20 04:29 Labs: Laboratory Last Values WBC 16.5 K/mm3 (4.5-11.0) H 12/11/20 04:29 RBC 2.60 M/mm3 (3.65-5.03) L 12/11/20 04:29 Hgb 6.7 gm/dl (10.1-14.3) L 12/11/20 10:25 Hct 21.0 % (30.3-42.9) L 12/11/20 10:25 MCV 84 fl (79-97) 12/11/20 04:29 MCH 27 pg (28-32) L 12/11/20 04:29 MCHC 32 % (30-34) 12/11/20 04:29 RDW 18.4 % (13.2-15.2) H 12/11/20 04:29 Plt Count 111 K/mm3 (140-440) L 12/11/20 04:29 Lymph % (Auto) 6.7 % (13.4-35.0) L 12/02/20 03:58 Emery % (Auto) 5.4 % (0.0-7.3) 12/02/20 03:58 Eos % (Auto) 0.0 % (0.0-4.3) 12/02/20 03:58 Baso % (Auto) 0.2 % (0.0-1.8) 12/02/20 03:58 Lymph # (Auto) 0.3 K/mm3 (1.2-5.4) L 12/02/20 03:58 Emery # (Auto) 0.3 K/mm3 (0.0-0.8) 12/02/20 03:58 Eos # (Auto) 0.0 K/mm3 (0.0-0.4) 12/02/20 03:58 Baso # (Auto) 0.0 K/mm3 (0.0-0.1) 12/02/20 03:58 Add Manual Diff Complete 12/10/20 02:39 Total Counted 100 12/10/20 02:39 Seg Neutrophils % Cloth Designer 12/10/20 02:39 Seg Neuts % (Manual) 95.0 % (40.0-70.0) H 12/10/20 02:39 Band Neutrophils % 2.0 % 12/10/20 02:39 Lymphocytes % (Manual) 1.0 % (13.4-35.0) L 12/10/20 02:39 Monocytes % (Manual) 2.0 % (0.0-7.3) 12/10/20 02:39 Eosinophils % (Manual) 1.0 % (0.0-4.3) 12/08/20 20:15 Nucleated RBC % 3.0 % (0.0-0.9) H 12/10/20 02:39 Seg Neutrophils # 4.4 K/mm3 (1.8-7.7) 12/02/20 03:58 Seg Neutrophils # Man 18.2 K/mm3 (1.8-7.7) H 12/10/20 02:39 Band Neutrophils # 0.4 K/mm3 12/10/20 02:39 Lymphocytes # (Manual) 0.2 K/mm3 (1.2-5.4) L 12/10/20 02:39 Abs React Lymphs (Man) 0.0 K/mm3 12/10/20 02:39 Monocytes # (Manual) 0.4 K/mm3 (0.0-0.8) 12/10/20 02:39 Eosinophils # (Manual) 0.0 K/mm3 (0.0-0.4) 12/10/20 02:39 Basophils # (Manual) 0.0 K/mm3 (0.0-0.1) 12/10/20 02:39 Metamyelocytes # 0.0 K/mm3 12/10/20 02:39 Myelocytes # 0.0 K/mm3 12/10/20 02:39 Promyelocytes # 0.0 K/mm3 12/10/20 02:39 Blast Cells # 0.0 K/mm3 12/10/20 02:39 WBC Morphology Not Reportable 12/10/20 02:39 Hypersegmented Neuts Not Reportable 12/10/20 02:39 Hyposegmented Neuts Not Reportable 12/10/20 02:39 Hypogranular Neuts Not Reportable 12/10/20 02:39 Smudge Cells Not Reportable 12/10/20 02:39 Toxic Granulation Not Reportable 12/10/20 02:39 Toxic Vacuolation Not Reportable 12/10/20 02:39 Dohle Bodies Not Reportable 12/10/20 02:39 Pelger-Huet Anomaly Not Reportable 12/10/20 02:39 Minna Rods Not Reportable 12/10/20 02:39 Platelet Estimate Consistent w auto 12/10/20 02:39 Clumped Platelets Not Reportable 12/10/20 02:39 Plt Clumps, EDTA Not Reportable 12/10/20 02:39 Large Platelets Few 12/10/20 02:39 Giant Platelets Not Reportable 12/10/20 02:39 Platelet Satelliting Not Reportable 12/10/20 02:39 Plt Morphology Comment Not Reportable 12/10/20 02:39 RBC Morphology Not Reportable 12/10/20 02:39 Dimorphic RBCs Not Reportable 12/10/20 02:39 Polychromasia Few 12/10/20 02:39 Hypochromasia 1+ 12/10/20 02:39 Poikilocytosis Not Reportable 12/10/20 02:39 Anisocytosis 1+ 12/10/20 02:39 Microcytosis Few 12/10/20 02:39 Macrocytosis Not Reportable 12/10/20 02:39 Spherocytes Not Reportable 12/10/20 02:39 Pappenheimer Bodies Not Reportable 12/10/20 02:39 Sickle Cells Not Reportable 12/10/20 02:39 Target Cells Not Reportable 12/10/20 02:39 Tear Drop Cells Few 12/10/20 02:39 Ovalocytes Not Reportable 12/10/20 02:39 Helmet Cells Not Reportable 12/10/20 02:39 Lopes-Paauilo Bodies Not Reportable 12/10/20 02:39 [place] Rings Not Reportable 12/10/20 02:39 [place] Cells Not Reportable 12/10/20 02:39 Bite Cells Not Reportable 12/10/20 02:39 Crenated Cell Not Reportable 12/10/20 02:39 Elliptocytes Not Reportable 12/10/20 02:39 Acanthocytes (Spur) Not Reportable 12/10/20 02:39 Rouleaux Not Reportable 12/10/20 02:39 Hemoglobin C Crystals Not Reportable 12/10/20 02:39 Schistocytes Not Reportable 12/10/20 02:39 Malaria parasites Not Reportable 12/10/20 02:39 Po Bodies Not Reportable 12/10/20 02:39 Hem Pathologist Commnt No 12/10/20 02:39 PT 17.3 Sec. (12.2-14.9) H 12/11/20 15:45 INR 1.35 (0.87-1.13) H 12/11/20 15:45 APTT 29.2 Sec. (24.2-36.6) 12/11/20 15:45 Fibrinogen 260 mg/dl (211-480) 12/09/20 13:08 D-Dimer 4051.67 ng/mlDDU (0-234) H 12/09/20 13:08 Heparin Anti-Xa Level < 0.10 U.I./ml (0.3-0.7) L 12/11/20 15:45 ABG pH 7.379 (7.320-7.450) 12/11/20 02:57 POC ABG pCO2 42.4 mmHg (32.0-48.0) 12/11/20 02:57 POC ABG pO2 86.7 mmHg (83-108) 12/11/20 02:57 POC ABG HCO3 24.5 12/11/20 02:57 ABG O2 Saturation 95.4 (0-100) 12/11/20 02:57 POC ABG Base Excess -0.6 12/11/20 02:57 ABG Hemoglobin 7.4 (12.0-17.5) L 12/11/20 02:57 ABG Oxyhemoglobin 94.0 (94-98) 12/11/20 02:57 ABG Methemoglobin 0.3 (0.0-1.5) 12/11/20 02:57 ABG Sodium 137.2 mmol/L (136.0-145.0) 12/11/20 02:57 ABG Potassium 4.2 mmol/L (3.40-4.50) 12/11/20 02:57 ABG Chloride 110.0 mmol/L (98-107) H 12/11/20 02:57 ABG Glucose 250 mg/dL (65-95) H 12/11/20 02:57 Carboxyhemoglobin 1.2 (0.5-1.5) 12/11/20 02:57 FiO2 % 60.0 12/11/20 02:57 Sodium 138 mmol/L (137-145) 12/11/20 04:29 Potassium 4.6 mmol/L (3.6-5.0) 12/11/20 04:29 Chloride 107.5 mmol/L (98-107) H 12/11/20 04:29 Carbon Dioxide 22 mmol/L (22-30) 12/11/20 04:29 Anion Gap 13 mmol/L 12/11/20 04:29 BUN 45 mg/dL (7-17) H 12/11/20 04:29 Creatinine 1.4 mg/dL (0.6-1.2) H 12/11/20 04:29 Estimated GFR 45 ml/min 12/11/20 04:29 BUN/Creatinine Ratio 32 % 12/11/20 04:29 Glucose 258 mg/dL (65-100) H 12/11/20 04:29 POC Glucose 225 mg/dL (70-105) H 12/11/20 11:07 Hemoglobin A1c 9.5 % (4-6) H 12/02/20 06:15 Lactic Acid 2.50 mmol/L (0.7-2.0) H* 12/09/20 13:08 Calcium 7.7 mg/dL (8.4-10.2) L 12/11/20 04:29 Phosphorus 4.20 mg/dL (2.5-4.5) 12/11/20 04:29 Magnesium 3.00 mg/dL (1.7-2.3) H 12/11/20 04:29 Ferritin 472.6 ng/mL (10.0-200.0) H 12/09/20 13:08 Total Bilirubin 0.40 mg/dL (0.1-1.2) 12/11/20 04:29 AST 78 units/L (5-40) H 12/11/20 04:29 ALT 26 units/L (7-56) 12/11/20 04:29 Alkaline Phosphatase 141 units/L (35-129) H 12/11/20 04:29 Lactate Dehydrogenase 2146 units/L (91-180) H 12/09/20 13:08 Total Creatine Kinase 521 units/L (30-135) H 12/08/20 20:15 CK-MB (CK-2) 31.5 ng/mL (0.0-4.0) H 12/08/20 20:15 CK-MB (CK-2) Rel Index 6.0 (0-4) H 12/08/20 20:15 Troponin T 0.487 ng/mL (0.00-0.029) H* D 12/09/20 13:08 C-Reactive Protein 8.70 mg/dL (0.00-1.30) H 12/09/20 13:08 NT-Pro-B Natriuret Pep 2396 pg/mL (0-900) H 12/09/20 13:08 Total Protein 4.4 g/dL (6.3-8.2) L 12/11/20 04:29 Albumin 2.2 g/dL (3.9-5) L 12/11/20 04:29 Albumin/Globulin Ratio 1.0 % 12/11/20 04:29 Triglycerides 366 mg/dL (2-149) H 12/11/20 04:29 Cholesterol 88 mg/dL (50-199) 12/08/20 13:25 LDL Cholesterol Direct 30 mg/dL (50-130) L 12/08/20 13:25 HDL Cholesterol 35 mg/dL (40-59) L 12/08/20 13:25 Cholesterol/HDL Ratio 2.51 % 12/08/20 13:25 Procalcitonin 1.18 ng/mL (<0.15) 12/02/20 03:58 Arterial Blood Glucose 250 mg/dL (65-95) H 12/11/20 02:57 Arterial Blood Ionized Calcium 4.4 mg/dL (4.6-5.3) L 12/11/20 02:57 Coronavirus (PCR) Positive (Negative) A 12/02/20 08:15 Blood Type O POSITIVE 12/10/20 04:10 Antibody Screen Negative 12/10/20 04:10 Crossmatch See Detail 12/10/20 04:10 Carpenter/IV: Voiding Method Indwelling Catheter Active Medications - Current Medications Current Medications: Generic Name Dose Route Start Last Admin Trade Name Freq PRN Reason Stop Dose Admin Acetaminophen 650 mg 12/02/20 05:09 12/06/20 21:12 Acetaminophen 325 Mg Tab PO 650 mg Q4H PRN Administration Pain MILD(1-3)/Fever >100.5/LARA Albuterol 2.5 mg 12/02/20 05:09 Albuterol 2.5 Mg/3 Ml Nebu IH Q3HRT PRN Shortness Of Breath Lipase/Protease/Amylase 1 each 12/09/20 10:32 Lipase 10,500/Protease 25,000/Amylase 43,750 (Units) Dr Fong FEEDTUBE PRN PRN For Clogged Feeding Tube Ascorbic Acid 500 mg 12/03/20 22:00 12/11/20 09:37 Ascorbic Acid 500 Mg Tab PO 500 mg BID AZAEL Administration Aspirin 81 mg 12/08/20 13:00 12/11/20 09:37 Aspirin 81 Mg Tab Chew PO 81 mg QDAY AZAEL Administration Atorvastatin Calcium 40 mg 12/08/20 22:00 12/10/20 21:19 Atorvastatin 40 Mg Tab PO 40 mg QHS AZAEL Administration Cholecalciferol 5,000 unit 12/02/20 10:00 12/11/20 09:37 Cholecalciferol (Vit D3) 5,000 Unit Tab PO 5,000 unit DAILY AZAEL Administration Clopidogrel Bisulfate 75 mg 12/09/20 10:00 12/11/20 09:37 Clopidogrel 75 Mg Tab PO 75 mg QDAY AZAEL Administration Dextrose 50 ml 12/02/20 05:09 12/05/20 08:09 Dextrose 50% In Water (25gm) 50 Ml Syringe IV 50 ml Q30MIN PRN Administration Hypoglycemia Protocol Docusate Sodium 100 mg 12/02/20 10:00 12/11/20 09:37 Docusate Sodium 100 Mg Cap PO 100 mg BID AZAEL Administration Fentanyl 50 mcg 12/08/20 15:13 Fentanyl 100 Mcg/2 Ml Inj IV Q10MIN PRN ANALGESIA Hydrophilic Ointment 1 applic 12/08/20 15:56 Lip Therapy Vaseline TP Q2HR PRN Dry Lips Fentanyl Citrate 2,000 mcg in 100 mls @ 3.243 mls/hr 12/08/20 16:00 12/11/20 09:46 Fentanyl Drip Premix IV 4 mcg/kg/hr TITR AZAEL 12.973 mls/hr Administration Protocol 1 MCG/KG/HR NORepinephrine/NS 8 MG-250 ML 8 mg in 250 mls @ 3.75 mls/hr 12/08/20 16:00 12/11/20 14:30 Norepinephrine/Ns 8 Mg-250 Ml (Double Conc) IV 6 mcg/min TITRATE AZAEL 11.25 mls/hr Titration Protocol 2 MCG/MIN Propofol 1,000 mg in 100 mls @ 1.946 mls/hr 12/08/20 17:00 12/11/20 14:30 Diprivan 10 Mg/Ml IV 20 mcg/kg/min TITR AZAEL 7.784 mls/hr Titration Protocol 5 MCG/KG/MIN Sodium Chloride 500 mls @ 1 mls/hr 12/08/20 17:19 Nacl 0.9% 500 Ml IV DIRECT PRN ARTERIAL LINE FLUSH Cefepime HCl 2 gm in 100 mls @ 200 mls/hr 12/09/20 14:00 12/11/20 14:14 Cefepime/Ns 2 Gm/100 Ml IV 12/14/20 02:29 200 mls/hr Q12H AZAEL Administration Protocol Vancomycin HCl 1 gm in 250 mls @ 167.007 mls/hr 12/10/20 14:00 12/11/20 14:15 Vancomycin/Ns 1 Gm/250 Ml IV 12/13/20 15:30 167.007 mls/hr Q24H AZAEL Administration Vasopressin 20 unit/ Sodium 101 mls @ 9.09 mls/hr 12/10/20 04:00 12/11/20 12:55 Chloride IV 0.03 units/min TITR AZAEL 9.09 mls/hr Administration Protocol 0.03 UNITS/MIN Pantoprazole Sodium 80 mg/ 100 mls @ 10 mls/hr 12/10/20 17:00 12/11/20 14:13 Sodium Chloride IV 8 mg/hr DIRECT AZAEL 10 mls/hr Administration 8 MG/HR Insulin Glargine 12 units 12/08/20 22:00 12/10/20 21:20 Insulin Glargine 100 Units/Ml SUB-Q 12 units QHS AZAEL Administration Insulin Human Lispro 0 unit 12/09/20 12:00 12/11/20 12:27 Insulin Lispro 100 Unit/Ml SUB-Q 4 unit Q6HR AZAEL Administration Protocol Metoclopramide HCl 5 mg 12/11/20 12:00 12/11/20 12:28 Metoclopramide 10 Mg/2 Ml Inj IV 5 mg Q6H AZAEL Administration Multi-Ingred Cream/Lotion/Oil/Oint 1 applic 12/08/20 15:56 Mineral Oil/Petrolatum, White Ophth Oint 3.5 Gm OU Q4HR PRN Dry Eye(s) Naloxone HCl 0.1 mg 12/02/20 05:09 Naloxone 0.4 Mg/1 Ml Inj IV Q2MIN PRN Res Rate </= 8 or 02 SAT < 92% Nitroglycerin 1 inch 12/08/20 14:00 12/11/20 09:38 Nitroglycerin 2% Oint 1 Gm TP 1 inch [facility]G [facility] Administration Protocol Ondansetron HCl 4 mg 12/02/20 05:09 Ondansetron 4 Mg/2 Ml Inj IV Q6H PRN Nausea And Vomiting Senna/Docusate Sodium 1 tab 12/08/20 22:00 12/11/20 09:37 Sennosides/Docusate Sodium 8.6/50 Mg Tab FEEDTUBE 1 tab BID AZAEL Administration Simple Syrup 30 ml 12/09/20 10:32 Simple Syrup 15 Ml FEEDTUBE PRN PRN Hypoglycemia Sodium Bicarbonate 325 mg 12/09/20 10:32 Sodium Bicarbonate 325 Mg Tab FEEDTUBE PRN PRN For Clogged Feeding Tube Sodium Chloride 10 ml 12/02/20 10:00 12/11/20 09:37 Sodium Chloride 0.9% 10 Ml Flush Syringe IV 10 ml BID AZAEL Administration Sodium Chloride 10 ml 12/02/20 05:09 Sodium Chloride 0.9% 10 Ml Flush Syringe IV PRN PRN LINE FLUSH Zinc Sulfate 220 mg 12/02/20 10:00 12/11/20 09:37 Zinc Sulfate 220 Mg Cap PO 220 mg QDAY AZAEL Administration Nutrition/Malnutrition Assess - Dietary Evaluation Nutrition/Malnutrition Findings: Nutrition Notes Start: 12/03/20 10:33 Freq: Status: Active Protocol: Document 12/11/20 09:31 MK (Rec: 12/11/20 09:34 MK [id number]) Nutrition Notes Initial or Follow up Brief Note Current Diagnosis Respiratory Failure Other Pertinent Diagnosis Covid +, Hyperglycemia Current Diet Vital AF at 45 ml/hr Subjective/Other Information TF off due to pt bleeding large amount from nose and mouth with possible hematemesis yesterday. Per MD on chest xray, TF needs to be advanced further into the dudenum. Nutrition Intervention Follow-Up By: 12/14/20 Additional Comments F/u: TF restart and tolerance <JEREMY INMAN - Last Filed: 12/12/20 14:39> Assessment and Plan Assessment and plan: I saw and evaluated the patient. Discussed with the nurse practitioner and agree with their findings and plan as documented in this note. Hospitalist Physical - Constitutional Vitals: Temp Pulse Resp BP Pulse Ox 100 F H 96 H 24 138/73 100 12/12/20 08:00 12/12/20 11:01 12/12/20 11:01 12/12/20 11:01 12/12/20 11:01 HEART Score - HEART Score Troponin: Troponin T 0.487 ng/mL (0.00-0.029) H* D 12/09/20 13:08 Results - Labs CBC & Chem 7: 12/12/20 08:10 12/12/20 06:04 Labs: Laboratory Last Values WBC 22.1 K/mm3 (4.5-11.0) H 12/12/20 06:04 RBC 3.21 M/mm3 (3.65-5.03) L 12/12/20 06:04 Hgb 8.2 gm/dl (10.1-14.3) L 12/12/20 08:10 Hct 25.9 % (30.3-42.9) L 12/12/20 08:10 MCV 84 fl (79-97) 12/12/20 06:04 MCH 26 pg (28-32) L 12/12/20 06:04 MCHC 31 % (30-34) 12/12/20 06:04 RDW 19.5 % (13.2-15.2) H 12/12/20 06:04 Plt Count 106 K/mm3 (140-440) L 12/12/20 06:04 Lymph % (Auto) 6.7 % (13.4-35.0) L 12/02/20 03:58 Emery % (Auto) 5.4 % (0.0-7.3) 12/02/20 03:58 Eos % (Auto) 0.0 % (0.0-4.3) 12/02/20 03:58 Baso % (Auto) 0.2 % (0.0-1.8) 12/02/20 03:58 Lymph # (Auto) 0.3 K/mm3 (1.2-5.4) L 12/02/20 03:58 Emery # (Auto) 0.3 K/mm3 (0.0-0.8) 12/02/20 03:58 Eos # (Auto) 0.0 K/mm3 (0.0-0.4) 12/02/20 03:58 Baso # (Auto) 0.0 K/mm3 (0.0-0.1) 12/02/20 03:58 Add Manual Diff Complete 12/10/20 02:39 Total Counted 100 12/10/20 02:39 Seg Neutrophils % Cloth Designer 12/10/20 02:39 Seg Neuts % (Manual) 95.0 % (40.0-70.0) H 12/10/20 02:39 Band Neutrophils % 2.0 % 12/10/20 02:39 Lymphocytes % (Manual) 1.0 % (13.4-35.0) L 12/10/20 02:39 Monocytes % (Manual) 2.0 % (0.0-7.3) 12/10/20 02:39 Eosinophils % (Manual) 1.0 % (0.0-4.3) 12/08/20 20:15 Nucleated RBC % 3.0 % (0.0-0.9) H 12/10/20 02:39 Seg Neutrophils # 4.4 K/mm3 (1.8-7.7) 12/02/20 03:58 Seg Neutrophils # Man 18.2 K/mm3 (1.8-7.7) H 12/10/20 02:39 Band Neutrophils # 0.4 K/mm3 12/10/20 02:39 Lymphocytes # (Manual) 0.2 K/mm3 (1.2-5.4) L 12/10/20 02:39 Abs React Lymphs (Man) 0.0 K/mm3 12/10/20 02:39 Monocytes # (Manual) 0.4 K/mm3 (0.0-0.8) 12/10/20 02:39 Eosinophils # (Manual) 0.0 K/mm3 (0.0-0.4) 12/10/20 02:39 Basophils # (Manual) 0.0 K/mm3 (0.0-0.1) 12/10/20 02:39 Metamyelocytes # 0.0 K/mm3 12/10/20 02:39 Myelocytes # 0.0 K/mm3 12/10/20 02:39 Promyelocytes # 0.0 K/mm3 12/10/20 02:39 Blast Cells # 0.0 K/mm3 12/10/20 02:39 WBC Morphology Not Reportable 12/10/20 02:39 Hypersegmented Neuts Not Reportable 12/10/20 02:39 Hyposegmented Neuts Not Reportable 12/10/20 02:39 Hypogranular Neuts Not Reportable 12/10/20 02:39 Smudge Cells Not Reportable 12/10/20 02:39 Toxic Granulation Not Reportable 12/10/20 02:39 Toxic Vacuolation Not Reportable 12/10/20 02:39 Dohle Bodies Not Reportable 12/10/20 02:39 Pelger-Huet Anomaly Not Reportable 12/10/20 02:39 Minna Rods Not Reportable 12/10/20 02:39 Platelet Estimate Consistent w auto 12/10/20 02:39 Clumped Platelets Not Reportable 12/10/20 02:39 Plt Clumps, EDTA Not Reportable 12/10/20 02:39 Large Platelets Few 12/10/20 02:39 Giant Platelets Not Reportable 12/10/20 02:39 Platelet Satelliting Not Reportable 12/10/20 02:39 Plt Morphology Comment Not Reportable 12/10/20 02:39 RBC Morphology Not Reportable 12/10/20 02:39 Dimorphic RBCs Not Reportable 12/10/20 02:39 Polychromasia Few 12/10/20 02:39 Hypochromasia 1+ 12/10/20 02:39 Poikilocytosis Not Reportable 12/10/20 02:39 Anisocytosis 1+ 12/10/20 02:39 Microcytosis Few 12/10/20 02:39 Macrocytosis Not Reportable 12/10/20 02:39 Spherocytes Not Reportable 12/10/20 02:39 Pappenheimer Bodies Not Reportable 12/10/20 02:39 Sickle Cells Not Reportable 12/10/20 02:39 Target Cells Not Reportable 12/10/20 02:39 Tear Drop Cells Few 12/10/20 02:39 Ovalocytes Not Reportable 12/10/20 02:39 Helmet Cells Not Reportable 12/10/20 02:39 [place] Bodies Not Reportable 12/10/20 02:39 [place] Rings Not Reportable 12/10/20 02:39 [place] Cells Not Reportable 12/10/20 02:39 Bite Cells Not Reportable 12/10/20 02:39 Crenated Cell Not Reportable 12/10/20 02:39 Elliptocytes Not Reportable 12/10/20 02:39 Acanthocytes (Spur) Not Reportable 12/10/20 02:39 Rouleaux Not Reportable 12/10/20 02:39 Hemoglobin C Crystals Not Reportable 12/10/20 02:39 Schistocytes Not Reportable 12/10/20 02:39 [place] parasites Not Reportable 12/10/20 02:39 Po Bodies Not Reportable 12/10/20 02:39 Hem Pathologist Commnt No 12/10/20 02:39 PT 17.3 Sec. (12.2-14.9) H 12/11/20 15:45 INR 1.35 (0.87-1.13) H 12/11/20 15:45 APTT 29.2 Sec. (24.2-36.6) 12/11/20 15:45 Fibrinogen 100 mg/dl (211-480) L* 12/12/20 08:10 D-Dimer > 71793 ng/mlDDU (0-234) H 12/12/20 08:10 Heparin Anti-Xa Level < 0.10 U.I./ml (0.3-0.7) L 12/11/20 15:45 ABG pH 7.380 (7.320-7.450) 12/12/20 04:00 POC ABG pCO2 41.5 mmHg (32.0-48.0) 12/12/20 04:00 POC ABG pO2 79.5 mmHg (83-108) L 12/12/20 04:00 POC ABG HCO3 24.0 12/12/20 04:00 ABG O2 Saturation 94.7 (0-100) 12/12/20 04:00 POC ABG Base Excess -1.1 12/12/20 04:00 ABG Hemoglobin 8.8 (12.0-17.5) L 12/12/20 04:00 ABG Oxyhemoglobin 93.5 (94-98) L 12/12/20 04:00 ABG Methemoglobin 0.3 (0.0-1.5) 12/12/20 04:00 ABG Sodium 140.9 mmol/L (136.0-145.0) 12/12/20 04:00 ABG Potassium 4.4 mmol/L (3.40-4.50) 12/12/20 04:00 ABG Chloride 114.0 mmol/L (98-107) H 12/12/20 04:00 ABG Glucose 257 mg/dL (65-95) H 12/12/20 04:00 Carboxyhemoglobin 1.0 (0.5-1.5) 12/12/20 04:00 FiO2 % 70.0 12/12/20 04:00 Sodium 146 mmol/L (137-145) H D 12/12/20 06:04 Potassium 4.3 mmol/L (3.6-5.0) 12/12/20 06:04 Chloride 116.0 mmol/L (98-107) H 12/12/20 06:04 Carbon Dioxide 20 mmol/L (22-30) L 12/12/20 06:04 Anion Gap 14 mmol/L 12/12/20 06:04 BUN 40 mg/dL (7-17) H 12/12/20 06:04 Creatinine 1.0 mg/dL (0.6-1.2) 12/12/20 06:04 Estimated GFR > 60 ml/min 12/12/20 06:04 BUN/Creatinine Ratio 40 % 12/12/20 06:04 Glucose 234 mg/dL (65-100) H 12/12/20 06:04 POC Glucose 215 mg/dL (70-105) H 12/12/20 11:49 Hemoglobin A1c 9.5 % (4-6) H 12/02/20 06:15 Lactic Acid 2.50 mmol/L (0.7-2.0) H* 12/09/20 13:08 Calcium 7.5 mg/dL (8.4-10.2) L 12/12/20 06:04 Phosphorus 3.00 mg/dL (2.5-4.5) D 12/12/20 06:04 Magnesium 3.10 mg/dL (1.7-2.3) H 12/12/20 06:04 Ferritin 240.7 ng/mL (10.0-200.0) H 12/12/20 06:04 Total Bilirubin 0.40 mg/dL (0.1-1.2) 12/11/20 04:29 AST 78 units/L (5-40) H 12/11/20 04:29 ALT 26 units/L (7-56) 12/11/20 04:29 Alkaline Phosphatase 141 units/L (35-129) H 12/11/20 04:29 Lactate Dehydrogenase 1274 units/L (91-180) H 12/12/20 06:04 Total Creatine Kinase 521 units/L (30-135) H 12/08/20 20:15 CK-MB (CK-2) 31.5 ng/mL (0.0-4.0) H 12/08/20 20:15 CK-MB (CK-2) Rel Index 6.0 (0-4) H 12/08/20 20:15 Troponin T 0.487 ng/mL (0.00-0.029) H* D 12/09/20 13:08 C-Reactive Protein 2.80 mg/dL (0.00-1.30) H 12/12/20 06:04 NT-Pro-B Natriuret Pep 2396 pg/mL (0-900) H 12/09/20 13:08 Total Protein 4.4 g/dL (6.3-8.2) L 12/11/20 04:29 Albumin 2.2 g/dL (3.9-5) L 12/11/20 04:29 Albumin/Globulin Ratio 1.0 % 12/11/20 04:29 Triglycerides 366 mg/dL (2-149) H 12/11/20 04:29 Cholesterol 88 mg/dL (50-199) 12/08/20 13:25 LDL Cholesterol Direct 30 mg/dL (50-130) L 12/08/20 13:25 HDL Cholesterol 35 mg/dL (40-59) L 12/08/20 13:25 Cholesterol/HDL Ratio 2.51 % 12/08/20 13:25 Procalcitonin 1.18 ng/mL (<0.15) 12/02/20 03:58 Arterial Blood Glucose 257 mg/dL (65-95) H 12/12/20 04:00 Arterial Blood Ionized Calcium 4.7 mg/dL (4.6-5.3) 12/12/20 04:00 Coronavirus (PCR) Positive (Negative) A 12/02/20 08:15 Blood Type O POSITIVE 12/10/20 04:10 Antibody Screen Negative 12/10/20 04:10 Crossmatch See Detail 12/10/20 04:10 Microbiology: Microbiology 12/11/20 16:39 Tracheal Aspirate Sputum Culture - Preliminary Carpenter/IV: Voiding Method External Female Catheter Active Medications - Current Medications Current Medications: Generic Name Dose Route Start Last Admin Trade Name Freq PRN Reason Stop Dose Admin Acetaminophen 650 mg 12/02/20 05:09 12/06/20 21:12 Acetaminophen 325 Mg Tab PO 650 mg Q4H PRN Administration Pain MILD(1-3)/Fever >100.5/LARA Albuterol 2.5 mg 12/02/20 05:09 Albuterol 2.5 Mg/3 Ml Nebu IH Q3HRT PRN Shortness Of Breath Lipase/Protease/Amylase 1 each 12/09/20 10:32 Lipase 10,500/Protease 25,000/Amylase 43,750 (Units) Dr Fong FEEDTUBE PRN PRN For Clogged Feeding Tube Ascorbic Acid 500 mg 12/03/20 22:00 12/12/20 09:38 Ascorbic Acid 500 Mg Tab PO 500 mg BID AZAEL Administration Aspirin 81 mg 12/08/20 13:00 12/12/20 09:38 Aspirin 81 Mg Tab Chew PO 81 mg QDAY AZAEL Administration Atorvastatin Calcium 40 mg 12/08/20 22:00 12/11/20 21:24 Atorvastatin 40 Mg Tab PO 40 mg QHS AZAEL Administration Cholecalciferol 5,000 unit 12/02/20 10:00 12/12/20 09:38 Cholecalciferol (Vit D3) 5,000 Unit Tab PO 5,000 unit DAILY AZAEL Administration Clopidogrel Bisulfate 75 mg 12/09/20 10:00 12/12/20 09:38 Clopidogrel 75 Mg Tab PO 75 mg QDAY AZAEL Administration Dextrose 50 ml 12/02/20 05:09 12/05/20 08:09 Dextrose 50% In Water (25gm) 50 Ml Syringe IV 50 ml Q30MIN PRN Administration Hypoglycemia Protocol Docusate Sodium 100 mg 12/02/20 10:00 12/12/20 09:38 Docusate Sodium 100 Mg Cap PO 100 mg BID AZAEL Administration Fentanyl 50 mcg 12/08/20 15:13 Fentanyl 100 Mcg/2 Ml Inj IV Q10MIN PRN ANALGESIA Hydrophilic Ointment 1 applic 12/08/20 15:56 Lip Therapy Vaseline TP Q2HR PRN Dry Lips Fentanyl Citrate 2,000 mcg in 100 mls @ 3.243 mls/hr 12/08/20 16:00 12/12/20 13:46 Fentanyl Drip Premix IV 4 mcg/kg/hr TITR AZAEL 12.973 mls/hr Administration Protocol 1 MCG/KG/HR NORepinephrine/NS 8 MG-250 ML 8 mg in 250 mls @ 3.75 mls/hr 12/08/20 16:00 12/12/20 11:07 Norepinephrine/Ns 8 Mg-250 Ml (Double Conc) IV 6 mcg/min TITRATE AZAEL 11.25 mls/hr Administration Protocol 2 MCG/MIN Propofol 1,000 mg in 100 mls @ 1.946 mls/hr 12/08/20 17:00 12/12/20 11:07 Diprivan 10 Mg/Ml IV 20 mcg/kg/min TITR AZAEL 7.784 mls/hr Administration Protocol 5 MCG/KG/MIN Sodium Chloride 500 mls @ 1 mls/hr 12/08/20 17:19 Nacl 0.9% 500 Ml IV DIRECT PRN ARTERIAL LINE FLUSH Cefepime HCl 2 gm in 100 mls @ 200 mls/hr 12/09/20 14:00 12/12/20 14:29 Cefepime/Ns 2 Gm/100 Ml IV 12/14/20 02:29 200 mls/hr Q12H [facility] Administration Protocol Vancomycin HCl 1 gm in 250 mls @ 167.007 mls/hr 12/10/20 14:00 12/12/20 14:28 Vancomycin/Ns 1 Gm/250 Ml IV 12/13/20 15:30 167.007 mls/hr Q24H [facility] Administration Vasopressin 20 unit/ Sodium 101 mls @ 9.09 mls/hr 12/10/20 04:00 12/12/20 00:15 Chloride IV 0.03 units/min TITR AZAEL 9.09 mls/hr Administration Protocol 0.03 UNITS/MIN Pantoprazole Sodium 80 mg/ 100 mls @ 10 mls/hr 12/10/20 17:00 12/12/20 14:28 Sodium Chloride IV 8 mg/hr DIRECT AZAEL 10 mls/hr Administration 8 MG/HR Insulin Glargine 15 units 12/12/20 22:00 Insulin Glargine 100 Units/Ml SUB-Q QHS [facility] Insulin Human Lispro 0 unit 12/09/20 12:00 12/12/20 13:46 Insulin Lispro 100 Unit/Ml SUB-Q 6 unit Q6HR [facility] Administration Protocol Metoclopramide HCl 5 mg 12/11/20 12:00 12/12/20 14:29 Metoclopramide 10 Mg/2 Ml Inj IV 5 mg Q6H [facility] Administration Multi-Ingred Cream/Lotion/Oil/Oint 1 applic 12/08/20 15:56 Mineral Oil/Petrolatum, White Ophth Oint 3.5 Gm OU Q4HR PRN Dry Eye(s) Naloxone HCl 0.1 mg 12/02/20 05:09 Naloxone 0.4 Mg/1 Ml Inj IV Q2MIN PRN Res Rate </= 8 or 02 SAT < 92% Nitroglycerin 1 inch 12/08/20 14:00 12/12/20 14:28 Nitroglycerin 2% Oint 1 Gm TP 1 inch QIDNTG [facility] Administration Protocol Ondansetron HCl 4 mg 12/02/20 05:09 Ondansetron 4 Mg/2 Ml Inj IV Q6H PRN Nausea And Vomiting Senna/Docusate Sodium 1 tab 12/08/20 22:00 12/12/20 09:36 Sennosides/Docusate Sodium 8.6/50 Mg Tab FEEDTUBE 1 tab BID AZAEL Administration Simple Syrup 30 ml 12/09/20 10:32 Simple Syrup 15 Ml FEEDTUBE PRN PRN Hypoglycemia Sodium Bicarbonate 325 mg 12/09/20 10:32 Sodium Bicarbonate 325 Mg Tab FEEDTUBE PRN PRN For Clogged Feeding Tube Sodium Chloride 10 ml 12/02/20 10:00 12/12/20 09:39 Sodium Chloride 0.9% 10 Ml Flush Syringe IV 10 ml BID AZAEL Administration Sodium Chloride 10 ml 12/02/20 05:09 Sodium Chloride 0.9% 10 Ml Flush Syringe IV PRN PRN LINE FLUSH Zinc Sulfate 220 mg 12/02/20 10:00 12/12/20 09:37 Zinc Sulfate 220 Mg Cap PO 220 mg QDAY AZAEL Administration Nutrition/Malnutrition Assess - Dietary Evaluation Nutrition/Malnutrition Findings: Nutrition Notes Start: 12/03/20 10:33 Freq: Status: Active Protocol: Document 12/11/20 09:31 (Rec: 12/11/20 09:34 [id number]) Nutrition Notes Initial or Follow up Brief Note Current Diagnosis Respiratory Failure Other Pertinent Diagnosis Covid +, Hyperglycemia Current Diet Vital AF at 45 ml/hr Subjective/Other Information TF off due to pt bleeding large amount from nose and mouth with possible hematemesis yesterday. Per MD on chest xray, TF needs to be advanced further into the dudenum. Nutrition Intervention Follow-Up By: 12/14/20 Additional Comments F/u: TF restart and tolerance
[2020-12-11 17:22] LABS: Hematocrit 19.6 % (30.3-42.9); Platelet Count 91 K/mm3 (140-440)
--- NOTE | 2020-12-11 17:31 | Vascular Lab Report ---
DUPLEX DOPPLER UPPER EXTREMITY ARTERIAL, RIGHT INDICATION / CLINICAL INFORMATION: right arm swelling post artery stick. TECHNIQUE: Arterial duplex examination of the right upper extremity performed using B-mode, color johnnie w and spectral Doppler assessment. FINDINGS: RIGHT: - Axillary: PSV 103 cm/sec. Triphasic waveform. - Brachial: PSV 156 cm/sec. Triphasic waveform. - Radial: PSV 93 cm/sec. Triphasic waveform. - Ulnar: PSV 78 cm/sec. Triphasic waveform. Incidentally noted deep venous thrombosis of the mid and distal right brachial vein. IMPRESSION: 1. Normal waveforms and velocities within the right upper extremity arteries. No findings of pseudoa neurysm. 2. Acute DVT involving the right brachial vein. Above findings regarding DVT was relayed to patient's nurse, Margarita 5:00 PM local time on date of ex am. Ankle-Brachial Index (MEERA): - Calcified arteries > 1.4 - Normal = 0.9-1.4 - Mild PAD = 0.7-0.89 - Moderate PAD = 0.51-0.69 - Severe PAD < 0.5 Doppler Waveform: - Triphasic is normal. - Biphasic is abnormal if clear transition from triphasic signal along vascular tree. - Monophasic is abnormal. Signer Name: Adelso Eaton MD Signed: 12/11/2020 5:26 PM Workstation Name: [id number] [email or web address] [email or web address]
[2020-12-11 21:26] LABS: Hemoglobin 8.3 gm/dl (10.1-14.3)
[2020-12-11] MEDS: INSULIN GLARGINE 100 UNITS/ML SUB-Q SCH (21:53)
--- NOTE | 2020-12-11 23:09 | Progress Note ---
Assessment and Plan - Patient Problems (1) Acute myocardial infarction Current Visit: Yes Status: Acute (2) Pneumonia due to COVID-19 virus Current Visit: Yes Status: Acute Subjective Date of service: 12/11/20 Principal diagnosis: Ac hypoxemic resp failure; COVID-19 infection; Pneumonia; ARDS; DM II; HTN Interval history: ON THE VENT Objective Vital Signs Temp Pulse Resp BP Pulse Ox 12/11/20 20:32 60 113/49 100 12/11/20 20:00 99.1 F 12/11/20 18:51 69 104/51 12/11/20 18:45 99.1 F 60 24 104/51 100 12/11/20 18:30 99.1 F 70 24 92/43 100 12/11/20 18:15 70 24 110/49 100 12/11/20 18:00 82 24 94/44 100 12/11/20 17:45 74 24 104/55 100 12/11/20 17:31 79 24 104/44 100 12/11/20 17:15 77 24 122/59 100 12/11/20 17:00 76 24 127/61 100 12/11/20 16:45 71 24 127/53 100 12/11/20 16:39 79 108/50 100 12/11/20 16:30 98.6 F 73 24 108/50 100 12/11/20 16:15 76 24 138/64 100 12/11/20 16:00 78 24 138/64 100 12/11/20 15:45 71 24 128/56 100 12/11/20 15:31 77 24 129/58 100 12/11/20 15:15 73 24 132/66 100 12/11/20 15:00 77 24 140/53 100 12/11/20 14:45 78 24 140/56 100 12/11/20 14:30 82 24 145/64 100 12/11/20 14:15 46 L 24 115/57 100 12/11/20 14:01 73 24 76/40 100 12/11/20 13:50 63 118/57 12/11/20 13:45 58 L 24 132/54 100 12/11/20 13:31 58 L 24 132/54 100 12/11/20 13:15 53 L 24 132/54 100 12/11/20 13:00 60 24 132/54 100 12/11/20 12:45 60 24 131/59 100 12/11/20 12:31 61 24 126/61 100 12/11/20 12:15 61 24 137/62 100 12/11/20 12:00 56 L 24 137/62 100 12/11/20 11:45 63 24 126/61 100 12/11/20 11:43 98.2 F 12/11/20 11:31 61 24 126/61 100 12/11/20 11:15 67 24 126/61 100 12/11/20 11:00 61 24 126/61 100 12/11/20 10:45 61 24 129/58 100 12/11/20 10:31 63 24 129/58 100 12/11/20 10:15 63 24 129/58 100 12/11/20 10:01 67 24 129/58 100 12/11/20 09:45 70 24 112/56 100 12/11/20 09:38 70 112/56 12/11/20 09:31 68 24 112/56 100 12/11/20 09:15 75 24 112/56 89 12/11/20 09:00 68 24 112/56 100 12/11/20 08:45 68 24 121/62 100 12/11/20 08:31 72 24 100 12/11/20 08:16 73 24 121/62 100 12/11/20 08:00 77 24 121/62 93 12/11/20 07:46 88 24 113/57 12/11/20 07:30 75 24 113/57 92 12/11/20 07:16 73 24 113/57 94 12/11/20 07:00 98.4 F 71 24 113/57 94 12/11/20 06:46 72 24 128/60 91 12/11/20 06:30 70 24 128/60 91 12/11/20 06:16 72 24 128/60 88 12/11/20 06:00 75 24 128/60 12/11/20 05:46 69 24 137/61 12/11/20 05:30 73 24 137/61 42 L 12/11/20 05:16 76 24 137/61 12/11/20 05:15 76 137/61 12/11/20 05:08 76 96 12/11/20 05:00 68 24 137/61 12/11/20 04:46 70 24 94/52 60 L 12/11/20 04:30 72 24 94/52 67 L 12/11/20 04:16 70 24 94/52 32 L 12/11/20 04:00 80 24 94/52 65 L 12/11/20 03:50 99.5 F 12/11/20 03:46 78 24 115/52 70 L 12/11/20 03:30 73 24 115/52 12/11/20 03:16 74 24 115/52 12/11/20 03:00 72 24 115/52 12/11/20 02:46 71 24 109/56 12/11/20 02:30 71 24 109/56 12/11/20 02:16 72 24 109/56 12/11/20 02:00 72 24 109/56 12/11/20 01:46 75 24 112/56 12/11/20 01:30 76 24 112/56 12/11/20 01:16 74 24 112/56 12/11/20 01:00 75 24 112/56 12/11/20 00:46 74 24 119/56 12/11/20 00:30 76 24 111/62 12/11/20 00:16 75 24 111/62 12/11/20 00:00 74 24 119/56 98 12/10/20 23:46 80 24 111/62 12/10/20 23:30 100.2 F H 81 24 111/62 12/10/20 23:16 87 24 111/62 - Physical Examination General: Other (intubated on the vent,,EXAM DEFERRRED) - Labs and Meds Cardiac Enzymes 12/11/20 Range/Units 04:29 AST 78 H (5-40) units/L Coagulation 12/11/20 Range/Units 15:45 PT 17.3 H (12.2-14.9) Sec. INR 1.35 H (0.87-1.13) APTT 29.2 (24.2-36.6) Sec. Lipids 12/11/20 Range/Units 04:29 Triglycerides 366 H (2-149) mg/dL CBC 12/11/20 12/11/20 12/11/20 Range/Units 04:29 10:25 16:21 WBC 16.5 H 17.2 H (4.5-11.0) K/mm3 RBC 2.60 L 2.38 L (3.65-5.03) M/mm3 Hgb 7.0 L 6.7 L 6.3 L (10.1-14.3) gm/dl Hct 21.8 L 21.0 L 19.6 L* (30.3-42.9) % Plt Count 111 L 91 L (140-440) K/mm3 12/11/20 Range/Units Unknown WBC (4.5-11.0) K/mm3 RBC (3.65-5.03) M/mm3 Hgb 8.3 L (10.1-14.3) gm/dl Hct 26.0 L D (30.3-42.9) % Plt Count (140-440) K/mm3 Comprehensive Metabolic Panel 12/11/20 Range/Units 04:29 Sodium 138 (137-145) mmol/L Potassium 4.6 (3.6-5.0) mmol/L Chloride 107.5 H (98-107) mmol/L Carbon Dioxide 22 (22-30) mmol/L BUN 45 H (7-17) mg/dL Creatinine 1.4 H (0.6-1.2) mg/dL Glucose 258 H (65-100) mg/dL Calcium 7.7 L (8.4-10.2) mg/dL AST 78 H (5-40) units/L ALT 26 (7-56) units/L Alkaline Phosphatase 141 H (35-129) units/L Total Protein 4.4 L (6.3-8.2) g/dL Albumin 2.2 L (3.9-5) g/dL - Allied health notes Allied health notes reviewed: nursing
[2020-12-12] MEDS: METOCLOPRAMIDE 10 MG/2 ML INJ IV SCH ×4 (00:15→18:19)
[2020-12-12] MEDS: VASOPRESSIN 20 UNIT in SODIUM CHLORIDE 0.9% 100 ML IV SCH (00:15)
[2020-12-12] MEDS: PANTOPRAZOLE 80 MG in SODIUM CHLORIDE 0.9% 100 ML IV SCH ×2 (00:30→14:28)
[2020-12-12] MEDS: fentaNYL DRIP Premix 2,000 MCG/100 ML BAG IV SCH ×3 (01:00→22:15)
--- NOTE | 2020-12-12 01:56 | Consultation ---
History of Present Illness - Reason for Consult Consult date: 12/11/20 Rule out Right Arm Compartment Syndrome after Radial Artery Injury Requesting physician: MACKENZIE AKBAR - History of Present Illness The patient is a 65-year-old female who was brought to the emergency department by EMS secondary to symptoms consistent with COVID-19 infection. She was found to have bilateral pneumonia and was diagnosed with COVID-19 infection. She was admitted and eventually had worsening of her symptoms requiring BiPAP. Her hospitalization has been complicated by an acute KS and eventually requiring intubation. She was initially on a heparin drip however that had to be stopped secondary to bleeding. She has required pressors and there was an attempted A- line placement in the right radial artery that was unsuccessfully placed. Bleeding was noted from the site and pressure was held. There was a significant amount of swelling initially at the site as well as in the hand. By report the hand was somewhat cool. We were asked to evaluate the patient for adequacy of flow as well as to rule out any concerns of possible compartment syndrome. Past History Past Medical History: diabetes, hypertension, other (GIB (2016)) Past Surgical History: Other (right wrist sx) Social history: single, full code, other (has a roommate). denies: smoking, alcohol abuse, prescription drug abuse, IV drug use Family history: diabetes, hypertension Medications and Allergies Allergies Allergy/AdvReac Type Severity Reaction Status Date / Time shellfish derived Allergy Unknown Verified 12/02/20 03:37 Home Medications Medication Instructions Recorded Confirmed Last Taken Type Azg-Viy-Qpqa 334-134-5 mg Tab 3 mg PO DAILY 12/03/20 12/03/20 12/02/20 History Iron 65 mg PO DAILY 12/03/20 12/03/20 12/02/20 History Lisinopril/Hydrochlorothiazide 20 mg PO DAILY 12/03/20 12/03/20 Unknown History Metformin HCl [metFORMIN] 1,000 mg PO BID 12/03/20 12/03/20 12/02/20 History Simvastatin 40 mg PO DAILY 12/03/20 12/03/20 Unknown History glipiZIDE 10 mg PO DAILY 12/03/20 12/03/20 Unknown History Active Meds: Active Medications Acetaminophen (Acetaminophen 325 Mg Tab) 650 mg PO Q4H PRN PRN Reason: Pain MILD(1-3)/Fever >100.5/LARA Last Admin: 12/06/20 21:12 Dose: 650 mg Documented by: Albuterol (Albuterol 2.5 Mg/3 Ml Nebu) 2.5 mg IH Q3HRT PRN PRN Reason: Shortness Of Breath Lipase/Protease/Amylase (Lipase 10,500/Protease 25,000/Amylase 43,750 (Units) Dr Cap) 1 each FEEDTUBE PRN PRN PRN Reason: For Clogged Feeding Tube Ascorbic Acid (Ascorbic Acid 500 Mg Tab) 500 mg PO BID [facility] [place] Last Admin: 12/11/20 21:24 Dose: 500 mg Documented by: Aspirin (Aspirin 81 Mg Tab Chew) 81 mg PO QDAY [facility] [place] Last Admin: 12/11/20 09:37 Dose: 81 mg Documented by: Atorvastatin Calcium (Atorvastatin 40 Mg Tab) 40 mg PO QHS [facility] [place] Last Admin: 12/11/20 21:24 Dose: 40 mg Documented by: Cholecalciferol (Cholecalciferol (Vit D3) 5,000 Unit Tab) 5,000 unit PO DAILY [facility] [place] Last Admin: 12/11/20 09:37 Dose: 5,000 unit Documented by: Clopidogrel Bisulfate (Clopidogrel 75 Mg Tab) 75 mg PO QDAY [facility] [place] Last Admin: 12/11/20 09:37 Dose: 75 mg Documented by: Dextrose (Dextrose 50% In Water (25gm) 50 Ml Syringe) 50 ml IV Q30MIN PRN; Protocol PRN Reason: Hypoglycemia Last Admin: 12/05/20 08:09 Dose: 50 ml Documented by: Docusate Sodium (Docusate Sodium 100 Mg Cap) 100 mg PO BID [facility] [place] Last Admin: 12/11/20 21:24 Dose: 100 mg Documented by: Fentanyl (Fentanyl 100 Mcg/2 Ml Inj) 50 mcg IV Q10MIN PRN PRN Reason: ANALGESIA Hydrophilic Ointment (Lip Therapy Vaseline) 1 applic TP Q2HR PRN PRN Reason: Dry Lips Fentanyl Citrate (Fentanyl Drip Premix) 2,000 mcg in 100 mls @ 3.243 mls/hr IV TITR [facility] [place]; Protocol Last Admin: 12/11/20 17:05 Dose: 4 mcg/kg/hr, 12.973 mls/hr Documented by: NORepinephrine/NS 8 MG-250 ML (Norepinephrine/Ns 8 Mg-250 Ml (Double Conc)) 8 mg in 250 mls @ 3.75 mls/hr IV TITRATE [facility] [place]; Protocol Last Admin: 12/11/20 18:40 Dose: 6 mcg/min, 11.25 mls/hr Documented by: Propofol (Diprivan 10 Mg/Ml) 1,000 mg in 100 mls @ 1.946 mls/hr IV TITR [facility]; Protocol Last Admin: 12/11/20 17:06 Dose: 20 mcg/kg/min, 7.784 mls/hr Documented by: Sodium Chloride (Nacl 0.9% 500 Ml) 500 mls @ 1 mls/hr IV DIRECT PRN PRN Reason: ARTERIAL LINE FLUSH Cefepime HCl (Cefepime/Ns 2 Gm/100 Ml) 2 gm in 100 mls @ 200 mls/hr IV Q12H [facility]; Protocol Stop: 12/14/20 02:29 Last Admin: 12/11/20 14:14 Dose: 200 mls/hr Documented by: Vancomycin HCl (Vancomycin/Ns 1 Gm/250 Ml) 1 gm in 250 mls @ 167.007 mls/hr IV Q24H [facility] Stop: 12/13/20 15:30 Last Admin: 12/11/20 14:15 Dose: 167.007 mls/hr Documented by: Vasopressin 20 unit/ Sodium (Chloride) 101 mls @ 9.09 mls/hr IV TITR [facility]; Protocol Last Admin: 12/11/20 12:55 Dose: 0.03 units/min, 9.09 mls/hr Documented by: Pantoprazole Sodium 80 mg/ (Sodium Chloride) 100 mls @ 10 mls/hr IV DIRECT [facility] Last Admin: 12/11/20 14:13 Dose: 8 mg/hr, 10 mls/hr Documented by: Insulin Glargine (Insulin Glargine 100 Units/Ml) 12 units SUB-Q QHS [facility] Last Admin: 12/11/20 21:53 Dose: 12 units Documented by: Insulin Human Lispro (Insulin Lispro 100 Unit/Ml) 0 unit SUB-Q Q6HR [facility]; Protocol Last Admin: 12/11/20 23:30 Dose: 4 unit Documented by: Metoclopramide HCl (Metoclopramide 10 Mg/2 Ml Inj) 5 mg IV Q6H [facility] Last Admin: 12/11/20 18:50 Dose: 5 mg Documented by: Multi-Ingred Cream/Lotion/Oil/Oint (Mineral Oil/Petrolatum, White Ophth Oint 3.5 Gm) 1 applic OU Q4HR PRN PRN Reason: Dry Eye(s) Naloxone HCl (Naloxone 0.4 Mg/1 Ml Inj) 0.1 mg IV Q2MIN PRN PRN Reason: Res Rate </= 8 or 02 SAT < 92% Nitroglycerin (Nitroglycerin 2% Oint 1 Gm) 1 inch TP QIDNTG [facility] [place]; Protocol Last Admin: 12/11/20 18:51 Dose: 1 inch Documented by: Ondansetron HCl (Ondansetron 4 Mg/2 Ml Inj) 4 mg IV Q6H PRN PRN Reason: Nausea And Vomiting Senna/Docusate Sodium (Sennosides/Docusate Sodium 8.6/50 Mg Tab) 1 tab FEEDTUBE BID [facility] [place] Last Admin: 12/11/20 21:24 Dose: 1 tab Documented by: Simple Syrup (Simple Syrup 15 Ml) 30 ml FEEDTUBE PRN PRN PRN Reason: Hypoglycemia Sodium Bicarbonate (Sodium Bicarbonate 325 Mg Tab) 325 mg FEEDTUBE PRN PRN PRN Reason: For Clogged Feeding Tube Sodium Chloride (Sodium Chloride 0.9% 10 Ml Flush Syringe) 10 ml IV BID [facility] [place] Last Admin: 12/11/20 21:25 Dose: 10 ml Documented by: Sodium Chloride (Sodium Chloride 0.9% 10 Ml Flush Syringe) 10 ml IV PRN PRN PRN Reason: LINE FLUSH Zinc Sulfate (Zinc Sulfate 220 Mg Cap) 220 mg PO QDAY [facility] [place] Last Admin: 12/11/20 09:37 Dose: 220 mg Documented by: Review of Systems ROS unobtainable: due to endotracheal tube Exam - Constitutional Vitals: Temp Pulse Resp BP Pulse Ox 99.1 F 57 L 24 118/46 100 12/11/20 23:40 12/11/20 23:24 12/11/20 18:45 12/11/20 23:24 12/11/20 23:24 General appearance: Present: no acute distress, other (Intubated) - Respiratory Respiratory effort: other (Ventilator supported) - Cardiovascular Rhythm: regular - Extremities Extremities: pulses intact (Right radial pulse is palpable, the pressure dressing was removed and there is no active bleeding), abnormal (The right forearm is soft) Extremity abnormal: edema (Right hand is edematous but perfused with brisk capillary refill) Results - Labs CBC & Chem 7: 12/12/20 08:10 12/12/20 06:04 Labs: Abnormal lab results 12/10/20 12/11/20 12/11/20 Range/Units 04:10 02:57 04:29 WBC (4.5-11.0) K/mm3 RBC (3.65-5.03) M/mm3 Hgb (10.1-14.3) gm/dl Hct (30.3-42.9) % MCH (28-32) pg RDW (13.2-15.2) % Plt Count (140-440) K/mm3 PT (12.2-14.9) Sec. INR (0.87-1.13) Fibrinogen (211-480) mg/dl Heparin Anti-Xa Level (0.3-0.7) U.I./ml ABG Hemoglobin 7.4 L (12.0-17.5) ABG Chloride 110.0 H (98-107) mmol/L ABG Glucose 250 H (65-95) mg/dL Chloride (98-107) mmol/L BUN (7-17) mg/dL Creatinine (0.6-1.2) mg/dL Glucose (65-100) mg/dL POC Glucose (70-105) mg/dL Calcium (8.4-10.2) mg/dL Magnesium (1.7-2.3) mg/dL AST (5-40) units/L Alkaline Phosphatase (35-129) units/L Total Protein (6.3-8.2) g/dL Albumin (3.9-5) g/dL Triglycerides 366 H (2-149) mg/dL Arterial Blood Glucose 250 H (65-95) mg/dL Arterial Blood Ionized Calcium 4.4 L (4.6-5.3) mg/dL Crossmatch See Detail 12/11/20 12/11/20 12/11/20 Range/Units 04:29 04:29 05:05 WBC 16.5 H (4.5-11.0) K/mm3 RBC 2.60 L (3.65-5.03) M/mm3 Hgb 7.0 L (10.1-14.3) gm/dl Hct 21.8 L (30.3-42.9) % MCH 27 L (28-32) pg RDW 18.4 H (13.2-15.2) % Plt Count 111 L (140-440) K/mm3 PT (12.2-14.9) Sec. INR (0.87-1.13) Fibrinogen (211-480) mg/dl Heparin Anti-Xa Level (0.3-0.7) U.I./ml ABG Hemoglobin (12.0-17.5) ABG Chloride (98-107) mmol/L ABG Glucose (65-95) mg/dL Chloride 107.5 H (98-107) mmol/L BUN 45 H (7-17) mg/dL Creatinine 1.4 H (0.6-1.2) mg/dL Glucose 258 H (65-100) mg/dL POC Glucose 250 H (70-105) mg/dL Calcium 7.7 L (8.4-10.2) mg/dL Magnesium 3.00 H (1.7-2.3) mg/dL AST 78 H (5-40) units/L Alkaline Phosphatase 141 H (35-129) units/L Total Protein 4.4 L (6.3-8.2) g/dL Albumin 2.2 L (3.9-5) g/dL Triglycerides (2-149) mg/dL Arterial Blood Glucose (65-95) mg/dL Arterial Blood Ionized Calcium (4.6-5.3) mg/dL Crossmatch 12/11/20 12/11/20 12/11/20 Range/Units 10:25 11:07 15:45 WBC (4.5-11.0) K/mm3 RBC (3.65-5.03) M/mm3 Hgb 6.7 L (10.1-14.3) gm/dl Hct 21.0 L (30.3-42.9) % MCH (28-32) pg RDW (13.2-15.2) % Plt Count (140-440) K/mm3 PT (12.2-14.9) Sec. INR (0.87-1.13) Fibrinogen (211-480) mg/dl Heparin Anti-Xa Level < 0.10 L (0.3-0.7) U.I./ml ABG Hemoglobin (12.0-17.5) ABG Chloride (98-107) mmol/L ABG Glucose (65-95) mg/dL Chloride (98-107) mmol/L BUN (7-17) mg/dL Creatinine (0.6-1.2) mg/dL Glucose (65-100) mg/dL POC Glucose 225 H (70-105) mg/dL Calcium (8.4-10.2) mg/dL Magnesium (1.7-2.3) mg/dL AST (5-40) units/L Alkaline Phosphatase (35-129) units/L Total Protein (6.3-8.2) g/dL Albumin (3.9-5) g/dL Triglycerides (2-149) mg/dL Arterial Blood Glucose (65-95) mg/dL Arterial Blood Ionized Calcium (4.6-5.3) mg/dL Crossmatch 12/11/20 12/11/20 12/11/20 Range/Units 15:45 16:21 17:54 WBC 17.2 H (4.5-11.0) K/mm3 RBC 2.38 L (3.65-5.03) M/mm3 Hgb 6.3 L (10.1-14.3) gm/dl Hct 19.6 L* (30.3-42.9) % MCH 27 L (28-32) pg RDW 18.8 H (13.2-15.2) % Plt Count 91 L (140-440) K/mm3 PT 17.3 H (12.2-14.9) Sec. INR 1.35 H (0.87-1.13) Fibrinogen 104 L* (211-480) mg/dl Heparin Anti-Xa Level (0.3-0.7) U.I./ml ABG Hemoglobin (12.0-17.5) ABG Chloride (98-107) mmol/L ABG Glucose (65-95) mg/dL Chloride (98-107) mmol/L BUN (7-17) mg/dL Creatinine (0.6-1.2) mg/dL Glucose (65-100) mg/dL POC Glucose 259 H (70-105) mg/dL Calcium (8.4-10.2) mg/dL Magnesium (1.7-2.3) mg/dL AST (5-40) units/L Alkaline Phosphatase (35-129) units/L Total Protein (6.3-8.2) g/dL Albumin (3.9-5) g/dL Triglycerides (2-149) mg/dL Arterial Blood Glucose (65-95) mg/dL Arterial Blood Ionized Calcium (4.6-5.3) mg/dL Crossmatch 12/11/20 12/11/20 12/11/20 Range/Units 21:28 23:19 Unknown WBC (4.5-11.0) K/mm3 RBC (3.65-5.03) M/mm3 Hgb 8.3 L (10.1-14.3) gm/dl Hct 26.0 L D (30.3-42.9) % MCH (28-32) pg RDW (13.2-15.2) % Plt Count (140-440) K/mm3 PT (12.2-14.9) Sec. INR (0.87-1.13) Fibrinogen (211-480) mg/dl Heparin Anti-Xa Level (0.3-0.7) U.I./ml ABG Hemoglobin (12.0-17.5) ABG Chloride (98-107) mmol/L ABG Glucose (65-95) mg/dL Chloride (98-107) mmol/L BUN (7-17) mg/dL Creatinine (0.6-1.2) mg/dL Glucose (65-100) mg/dL POC Glucose 251 H 229 H (70-105) mg/dL Calcium (8.4-10.2) mg/dL Magnesium (1.7-2.3) mg/dL AST (5-40) units/L Alkaline Phosphatase (35-129) units/L Total Protein (6.3-8.2) g/dL Albumin (3.9-5) g/dL Triglycerides (2-149) mg/dL Arterial Blood Glucose (65-95) mg/dL Arterial Blood Ionized Calcium (4.6-5.3) mg/dL Crossmatch Assessment and Plan The patient is a 65-year-old female with multiple medical issues at this time including COVID-19 infection and recent acute STEMI. She had an attempted right radial A-line with some bleeding from the radial artery however the radial artery has a palpable pulse and upon removal of the dressing there is no active bleeding. The right hand is well-perfused with brisk capillary refill. The forearm is soft and there is no evidence of compartment syndrome. The patient had an arterial duplex and review of the films demonstrate triphasic flow throughout the right upper extremity which would further confirm that there is no evidence of compartment syndrome. There was an incidental finding of a brachial vein DVT. When the patient is able to tolerate anticoagulation would recommend restarting a low-dose heparin drip to prevent propagation of the DVT.
[2020-12-12] MEDS: CEFEPIME/NS 2 GM/100 ML 2 GM/100 ML BAG IV SCH ×2 (02:50→14:29)
[2020-12-12] MEDS: NITROGLYCERIN 2% OINT 1 GM TP SCH ×4 (05:18→18:19)
[2020-12-12] MEDS: INSULIN LISPRO 100 UNIT/ML SUB-Q SCH ×3 (05:18→18:03)
[2020-12-12 06:25] LABS: Hematocrit 26.8 % (30.3-42.9); Hemoglobin 8.4 gm/dl (10.1-14.3); Mean Corpuscular HGB Conc 31 % (30-34); Mean Corpuscular Volume 84 fl (79-97); Platelet Count 106 K/mm3 (140-440); Red Blood Count 3.21 M/mm3 (3.65-5.03); Red Cell Distribution Width 19.5 % (13.2-15.2)
[2020-12-12 06:54] LABS: BUN/Creatinine Ratio 40; Blood Urea Nitrogen 40 mg/dL (7-17); Calcium 7.5 mg/dL (8.4-10.2); Hemolysis Index 26
[2020-12-12] MEDS ORDERED: INSULIN GLARGINE 100 UNITS/ML SUB-Q ONE (08:29)
[2020-12-12 09:00] LABS: Hematocrit 25.9 % (30.3-42.9); Hemoglobin 8.2 gm/dl (10.1-14.3)
[2020-12-12] MEDS: SENNOSIDES/DOCUSATE SODIUM 8.6/50 MG TAB FEEDTUBE SCH ×2 (09:36→22:15)
[2020-12-12] MEDS: ZINC SULFATE 220 MG CAP PO SCH (09:37)
[2020-12-12] MEDS: DOCUSATE SODIUM 100 MG CAP PO SCH (09:38)
[2020-12-12] MEDS: ASCORBIC ACID 500 MG TAB PO SCH ×2 (09:38→22:20)
[2020-12-12] MEDS: ASPIRIN 81 MG TAB CHEW PO SCH (09:38)
[2020-12-12] MEDS: CLOPIDOGREL 75 MG TAB PO SCH (09:38)
[2020-12-12] MEDS: CHOLECALCIFEROL (VIT D3) 5,000 UNIT TAB PO SCH (09:38)
--- NOTE | 2020-12-12 09:59 | XRay Report ---
CHEST 1 VIEW 12/12/2020 9:08 AM INDICATION / CLINICAL INFORMATION: hypoxia. COMPARISON: 12/11/2020 FINDINGS: SUPPORT DEVICES: Lines and tubes again project in expected position HEART / MEDIASTINUM: No significant abnormality. LUNGS / PLEURA: Bilateral parenchymal disease, unchanged. No pneumothorax. ADDITIONAL FINDINGS: No significant additional findings. IMPRESSION: 1. Stable bilateral parenchymal disease Signer Name: Evangelist Herron MD Signed: 12/12/2020 9:54 AM Workstation Name: [id number]
[2020-12-12] MEDS: NORepinephrine/NS 8 MG-250 ML 8 MG/250 ML INFUS..BTL IV SCH (11:07)
[2020-12-12 11:35] LABS: Fibrinogen 100 mg/dl (211-480)
--- NOTE | 2020-12-12 12:57 | Progress Note ---
Assessment and Plan Cultures: SARS CoV2 PCR: Positive 12/02/2020 blood culture: no growth A/P: 65-year-old female with diabetes, hypertension admitted with: #Shock, multifactorial, probably due to severe COVID, ?cardiogenic. No clear bacterial infection identified. #Bilateral pneumonia: Secondary to COVID-19. Severe disease. #Acute hypoxic respiratory failure: Secondary to above. Failed BiPAP, now on the vent. #Diabetes mellitus, uncontrolled: HbA1c 9.5 #ST elevation WI: Cardiology on board. #Bleeding, anemia Recs: -continue steroids, at least 10 days -Status post 5 days of remdesivir, s/p Actemra -continue cefepime and vancomycin x 5 days, D4 -Prognosis remains extremely poor Carl Goldstein MD, FACP [facility], [place], [facility] O: [phone] F: [phone] Subjective Date of service: 12/12/20 Principal diagnosis: Ac hypoxemic resp failure; COVID-19 infection; Pneumonia; ARDS; DM II; HTN Interval history: No fever. Remains on the vent, 60% FiO2, 14 PEEP. Remains on norepinephrine, vasopressin Objective - Exam Narrative Exam: Physical Exam (reviewed in chart to minimize risk of transmission) Constitutional: deferred Head, Ears, Nose: deferred Eyes: deferred Neck: deferred Oral: deferred Cardiovascular: deferred Respiratory: deferred GI: deferred Musculoskeletal: deferred Skin: deferred Hem/Lymphatic: deferred Psych: deferred Neurological: deferred - Constitutional Vitals: Vital Signs Temp Pulse Resp BP Pulse Ox 100 F H 96 H 24 138/73 100 12/12/20 08:00 12/12/20 11:01 12/12/20 11:01 12/12/20 11:01 12/12/20 11:01 Temperature -Last 24 Hours Temperature 100 F Temperature 99.4 F Temperature 99.1 F Temperature 99.1 F Temperature 99 F Temperature 99.1 F Temperature 99.1 F Temperature 98.6 F - Labs CBC & Chem 7: 12/12/20 08:10 12/12/20 06:04 Labs: Abnormal lab results 12/10/20 12/11/20 12/11/20 Range/Units 04:10 15:45 15:45 WBC (4.5-11.0) K/mm3 RBC (3.65-5.03) M/mm3 Hgb (10.1-14.3) gm/dl Hct (30.3-42.9) % MCH (28-32) pg RDW (13.2-15.2) % Plt Count (140-440) K/mm3 PT 17.3 H (12.2-14.9) Sec. INR 1.35 H (0.87-1.13) Fibrinogen 104 L* (211-480) mg/dl D-Dimer (0-234) ng/mlDDU Heparin Anti-Xa Level < 0.10 L (0.3-0.7) U.I./ml POC ABG pO2 (83-108) mmHg ABG Hemoglobin (12.0-17.5) ABG Oxyhemoglobin (94-98) ABG Chloride (98-107) mmol/L ABG Glucose (65-95) mg/dL Sodium (137-145) mmol/L Chloride (98-107) mmol/L Carbon Dioxide (22-30) mmol/L BUN (7-17) mg/dL Glucose (65-100) mg/dL POC Glucose (70-105) mg/dL Calcium (8.4-10.2) mg/dL Magnesium (1.7-2.3) mg/dL Ferritin (10.0-200.0) ng/mL Lactate Dehydrogenase (91-180) units/L C-Reactive Protein (0.00-1.30) mg/dL Arterial Blood Glucose (65-95) mg/dL Crossmatch See Detail 12/11/20 12/11/20 12/11/20 Range/Units 16:21 17:54 21:28 WBC 17.2 H (4.5-11.0) K/mm3 RBC 2.38 L (3.65-5.03) M/mm3 Hgb 6.3 L (10.1-14.3) gm/dl Hct 19.6 L* (30.3-42.9) % MCH 27 L (28-32) pg RDW 18.8 H (13.2-15.2) % Plt Count 91 L (140-440) K/mm3 PT (12.2-14.9) Sec. INR (0.87-1.13) Fibrinogen (211-480) mg/dl D-Dimer (0-234) ng/mlDDU Heparin Anti-Xa Level (0.3-0.7) U.I./ml POC ABG pO2 (83-108) mmHg ABG Hemoglobin (12.0-17.5) ABG Oxyhemoglobin (94-98) ABG Chloride (98-107) mmol/L ABG Glucose (65-95) mg/dL Sodium (137-145) mmol/L Chloride (98-107) mmol/L Carbon Dioxide (22-30) mmol/L BUN (7-17) mg/dL Glucose (65-100) mg/dL POC Glucose 259 H 251 H (70-105) mg/dL Calcium (8.4-10.2) mg/dL Magnesium (1.7-2.3) mg/dL Ferritin (10.0-200.0) ng/mL Lactate Dehydrogenase (91-180) units/L C-Reactive Protein (0.00-1.30) mg/dL Arterial Blood Glucose (65-95) mg/dL Crossmatch 12/11/20 12/11/20 12/12/20 Range/Units 23:19 Unknown 04:00 WBC (4.5-11.0) K/mm3 RBC (3.65-5.03) M/mm3 Hgb 8.3 L (10.1-14.3) gm/dl Hct 26.0 L D (30.3-42.9) % MCH (28-32) pg RDW (13.2-15.2) % Plt Count (140-440) K/mm3 PT (12.2-14.9) Sec. INR (0.87-1.13) Fibrinogen (211-480) mg/dl D-Dimer (0-234) ng/mlDDU Heparin Anti-Xa Level (0.3-0.7) U.I./ml POC ABG pO2 79.5 L (83-108) mmHg ABG Hemoglobin 8.8 L (12.0-17.5) ABG Oxyhemoglobin 93.5 L (94-98) ABG Chloride 114.0 H (98-107) mmol/L ABG Glucose 257 H (65-95) mg/dL Sodium (137-145) mmol/L Chloride (98-107) mmol/L Carbon Dioxide (22-30) mmol/L BUN (7-17) mg/dL Glucose (65-100) mg/dL POC Glucose 229 H (70-105) mg/dL Calcium (8.4-10.2) mg/dL Magnesium (1.7-2.3) mg/dL Ferritin (10.0-200.0) ng/mL Lactate Dehydrogenase (91-180) units/L C-Reactive Protein (0.00-1.30) mg/dL Arterial Blood Glucose 257 H (65-95) mg/dL Crossmatch 12/12/20 12/12/20 12/12/20 Range/Units 04:44 06:04 06:04 WBC 22.1 H (4.5-11.0) K/mm3 RBC 3.21 L (3.65-5.03) M/mm3 Hgb 8.4 L (10.1-14.3) gm/dl Hct 26.8 L (30.3-42.9) % MCH 26 L (28-32) pg RDW 19.5 H (13.2-15.2) % Plt Count 106 L (140-440) K/mm3 PT (12.2-14.9) Sec. INR (0.87-1.13) Fibrinogen (211-480) mg/dl D-Dimer (0-234) ng/mlDDU Heparin Anti-Xa Level (0.3-0.7) U.I./ml POC ABG pO2 (83-108) mmHg ABG Hemoglobin (12.0-17.5) ABG Oxyhemoglobin (94-98) ABG Chloride (98-107) mmol/L ABG Glucose (65-95) mg/dL Sodium 146 H D (137-145) mmol/L Chloride 116.0 H (98-107) mmol/L Carbon Dioxide 20 L (22-30) mmol/L BUN 40 H (7-17) mg/dL Glucose 234 H (65-100) mg/dL POC Glucose 232 H (70-105) mg/dL Calcium 7.5 L (8.4-10.2) mg/dL Magnesium 3.10 H (1.7-2.3) mg/dL Ferritin (10.0-200.0) ng/mL Lactate Dehydrogenase 1274 H (91-180) units/L C-Reactive Protein 2.80 H (0.00-1.30) mg/dL Arterial Blood Glucose (65-95) mg/dL Crossmatch 12/12/20 12/12/20 12/12/20 Range/Units 06:04 08:10 08:10 WBC (4.5-11.0) K/mm3 RBC (3.65-5.03) M/mm3 Hgb 8.2 L (10.1-14.3) gm/dl Hct 25.9 L (30.3-42.9) % MCH (28-32) pg RDW (13.2-15.2) % Plt Count (140-440) K/mm3 PT (12.2-14.9) Sec. INR (0.87-1.13) Fibrinogen 100 L* (211-480) mg/dl D-Dimer > 09293 H (0-234) ng/mlDDU Heparin Anti-Xa Level (0.3-0.7) U.I./ml POC ABG pO2 (83-108) mmHg ABG Hemoglobin (12.0-17.5) ABG Oxyhemoglobin (94-98) ABG Chloride (98-107) mmol/L ABG Glucose (65-95) mg/dL Sodium (137-145) mmol/L Chloride (98-107) mmol/L Carbon Dioxide (22-30) mmol/L BUN (7-17) mg/dL Glucose (65-100) mg/dL POC Glucose (70-105) mg/dL Calcium (8.4-10.2) mg/dL Magnesium (1.7-2.3) mg/dL Ferritin 240.7 H (10.0-200.0) ng/mL Lactate Dehydrogenase (91-180) units/L C-Reactive Protein (0.00-1.30) mg/dL Arterial Blood Glucose (65-95) mg/dL Crossmatch 12/12/20 Range/Units 11:49 WBC (4.5-11.0) K/mm3 RBC (3.65-5.03) M/mm3 Hgb (10.1-14.3) gm/dl Hct (30.3-42.9) % MCH (28-32) pg RDW (13.2-15.2) % Plt Count (140-440) K/mm3 PT (12.2-14.9) Sec. INR (0.87-1.13) Fibrinogen (211-480) mg/dl D-Dimer (0-234) ng/mlDDU Heparin Anti-Xa Level (0.3-0.7) U.I./ml POC ABG pO2 (83-108) mmHg ABG Hemoglobin (12.0-17.5) ABG Oxyhemoglobin (94-98) ABG Chloride (98-107) mmol/L ABG Glucose (65-95) mg/dL Sodium (137-145) mmol/L Chloride (98-107) mmol/L Carbon Dioxide (22-30) mmol/L BUN (7-17) mg/dL Glucose (65-100) mg/dL POC Glucose 215 H (70-105) mg/dL Calcium (8.4-10.2) mg/dL Magnesium (1.7-2.3) mg/dL Ferritin (10.0-200.0) ng/mL Lactate Dehydrogenase (91-180) units/L C-Reactive Protein (0.00-1.30) mg/dL Arterial Blood Glucose (65-95) mg/dL Crossmatch
--- NOTE | 2020-12-12 14:02 | Progress Note ---
Assessment and Plan 1. Blood in mouth - due to ETT, OGT, etc. Not coming from stomach or esophagus apparently. - monitor H/H - empiric PPI - call if evidence of destinee GI bleed. Will sign off. Thanks. Subjective Date of service: 12/12/20 Principal diagnosis: Ac hypoxemic resp failure; COVID-19 infection; Pneumonia; ARDS; DM II; HTN Interval history: Pt not seen. Discussed with RNJoel. Pt has no blood in OGT aspiration. No destinee GI bleed. Has blood in mouth. No LGI bleed. Objective - Exam Narrative Exam: Not examined due to COVID. - Constitutional Vitals: Vital Signs - 12hr 12/12/20 12/12/20 12/12/20 02:15 02:30 02:45 Temperature Pulse Rate 61 59 L 60 Respiratory 24 24 24 Rate Blood Pressure 115/47 106/44 111/50 O2 Sat by Pulse 100 100 100 Oximetry 12/12/20 12/12/20 12/12/20 03:00 03:15 03:30 Temperature Pulse Rate 59 L 59 L 60 Respiratory 24 24 24 Rate Blood Pressure 114/45 107/46 115/52 O2 Sat by Pulse 100 100 100 Oximetry 12/12/20 12/12/20 12/12/20 03:32 03:45 04:00 Temperature 99.4 F Pulse Rate 73 71 Respiratory 24 24 Rate Blood Pressure 115/52 O2 Sat by Pulse 100 98 Oximetry 12/12/20 12/12/20 12/12/20 04:01 04:08 04:15 Temperature Pulse Rate 80 60 89 Respiratory 24 21 Rate Blood Pressure 118/58 115/52 124/58 O2 Sat by Pulse 100 100 100 Oximetry 12/12/20 12/12/20 12/12/20 04:30 04:45 05:00 Temperature Pulse Rate 86 82 87 Respiratory 24 24 24 Rate Blood Pressure 125/68 124/58 122/60 O2 Sat by Pulse 100 100 100 Oximetry 12/12/20 12/12/20 12/12/20 05:15 05:18 05:30 Temperature Pulse Rate 85 80 86 Respiratory 24 24 Rate Blood Pressure 131/61 131/61 130/67 O2 Sat by Pulse 100 100 Oximetry 12/12/20 12/12/20 12/12/20 05:45 06:00 06:15 Temperature Pulse Rate 81 88 83 Respiratory 24 24 24 Rate Blood Pressure 120/57 131/62 131/62 O2 Sat by Pulse 100 100 100 Oximetry 12/12/20 12/12/20 12/12/20 06:30 06:45 07:00 Temperature Pulse Rate 91 H 97 H 94 H Respiratory 24 23 24 Rate Blood Pressure 133/71 133/71 115/61 O2 Sat by Pulse 96 93 100 Oximetry 12/12/20 12/12/20 12/12/20 07:15 07:30 07:45 Temperature Pulse Rate 87 81 85 Respiratory 24 24 24 Rate Blood Pressure 115/61 107/56 123/64 O2 Sat by Pulse 97 100 100 Oximetry 12/12/20 12/12/20 12/12/20 08:00 08:15 08:30 Temperature 100 F H Pulse Rate 83 76 84 Respiratory 24 23 24 Rate Blood Pressure 94/51 94/51 100/61 O2 Sat by Pulse 100 100 100 Oximetry 12/12/20 12/12/20 12/12/20 08:45 09:00 09:15 Temperature Pulse Rate 86 90 86 Respiratory 24 24 24 Rate Blood Pressure 99/63 108/62 99/48 O2 Sat by Pulse 100 100 100 Oximetry 12/12/20 12/12/20 12/12/20 09:30 09:45 10:00 Temperature Pulse Rate 96 H 101 H 98 H Respiratory 24 23 24 Rate Blood Pressure 119/71 128/70 131/74 O2 Sat by Pulse 100 100 100 Oximetry 12/12/20 12/12/20 12/12/20 10:15 10:30 10:45 Temperature Pulse Rate 94 H 89 92 H Respiratory 24 24 24 Rate Blood Pressure 134/63 120/60 120/64 O2 Sat by Pulse 100 100 100 Oximetry 12/12/20 11:01 Temperature Pulse Rate 96 H Respiratory 24 Rate Blood Pressure 138/73 O2 Sat by Pulse 100 Oximetry - Labs CBC & Chem 7: 12/12/20 08:10 12/12/20 06:04 Labs: Abnormal lab results 12/10/20 12/11/20 12/11/20 Range/Units 04:10 15:45 15:45 WBC (4.5-11.0) K/mm3 RBC (3.65-5.03) M/mm3 Hgb (10.1-14.3) gm/dl Hct (30.3-42.9) % MCH (28-32) pg RDW (13.2-15.2) % Plt Count (140-440) K/mm3 PT 17.3 H (12.2-14.9) Sec. INR 1.35 H (0.87-1.13) Fibrinogen 104 L* (211-480) mg/dl D-Dimer (0-234) ng/mlDDU Heparin Anti-Xa Level < 0.10 L (0.3-0.7) U.I./ml POC ABG pO2 (83-108) mmHg ABG Hemoglobin (12.0-17.5) ABG Oxyhemoglobin (94-98) ABG Chloride (98-107) mmol/L ABG Glucose (65-95) mg/dL Sodium (137-145) mmol/L Chloride (98-107) mmol/L Carbon Dioxide (22-30) mmol/L BUN (7-17) mg/dL Glucose (65-100) mg/dL POC Glucose (70-105) mg/dL Calcium (8.4-10.2) mg/dL Magnesium (1.7-2.3) mg/dL Ferritin (10.0-200.0) ng/mL Lactate Dehydrogenase (91-180) units/L C-Reactive Protein (0.00-1.30) mg/dL Arterial Blood Glucose (65-95) mg/dL Crossmatch See Detail 12/11/20 12/11/20 12/11/20 Range/Units 16:21 17:54 21:28 WBC 17.2 H (4.5-11.0) K/mm3 RBC 2.38 L (3.65-5.03) M/mm3 Hgb 6.3 L (10.1-14.3) gm/dl Hct 19.6 L* (30.3-42.9) % MCH 27 L (28-32) pg RDW 18.8 H (13.2-15.2) % Plt Count 91 L (140-440) K/mm3 PT (12.2-14.9) Sec. INR (0.87-1.13) Fibrinogen (211-480) mg/dl D-Dimer (0-234) ng/mlDDU Heparin Anti-Xa Level (0.3-0.7) U.I./ml POC ABG pO2 (83-108) mmHg ABG Hemoglobin (12.0-17.5) ABG Oxyhemoglobin (94-98) ABG Chloride (98-107) mmol/L ABG Glucose (65-95) mg/dL Sodium (137-145) mmol/L Chloride (98-107) mmol/L Carbon Dioxide (22-30) mmol/L BUN (7-17) mg/dL Glucose (65-100) mg/dL POC Glucose 259 H 251 H (70-105) mg/dL Calcium (8.4-10.2) mg/dL Magnesium (1.7-2.3) mg/dL Ferritin (10.0-200.0) ng/mL Lactate Dehydrogenase (91-180) units/L C-Reactive Protein (0.00-1.30) mg/dL Arterial Blood Glucose (65-95) mg/dL Crossmatch 12/11/20 12/11/20 12/12/20 Range/Units 23:19 Unknown 04:00 WBC (4.5-11.0) K/mm3 RBC (3.65-5.03) M/mm3 Hgb 8.3 L (10.1-14.3) gm/dl Hct 26.0 L D (30.3-42.9) % MCH (28-32) pg RDW (13.2-15.2) % Plt Count (140-440) K/mm3 PT (12.2-14.9) Sec. INR (0.87-1.13) Fibrinogen (211-480) mg/dl D-Dimer (0-234) ng/mlDDU Heparin Anti-Xa Level (0.3-0.7) U.I./ml POC ABG pO2 79.5 L (83-108) mmHg ABG Hemoglobin 8.8 L (12.0-17.5) ABG Oxyhemoglobin 93.5 L (94-98) ABG Chloride 114.0 H (98-107) mmol/L ABG Glucose 257 H (65-95) mg/dL Sodium (137-145) mmol/L Chloride (98-107) mmol/L Carbon Dioxide (22-30) mmol/L BUN (7-17) mg/dL Glucose (65-100) mg/dL POC Glucose 229 H (70-105) mg/dL Calcium (8.4-10.2) mg/dL Magnesium (1.7-2.3) mg/dL Ferritin (10.0-200.0) ng/mL Lactate Dehydrogenase (91-180) units/L C-Reactive Protein (0.00-1.30) mg/dL Arterial Blood Glucose 257 H (65-95) mg/dL Crossmatch 12/12/20 12/12/20 12/12/20 Range/Units 04:44 06:04 06:04 WBC 22.1 H (4.5-11.0) K/mm3 RBC 3.21 L (3.65-5.03) M/mm3 Hgb 8.4 L (10.1-14.3) gm/dl Hct 26.8 L (30.3-42.9) % MCH 26 L (28-32) pg RDW 19.5 H (13.2-15.2) % Plt Count 106 L (140-440) K/mm3 PT (12.2-14.9) Sec. INR (0.87-1.13) Fibrinogen (211-480) mg/dl D-Dimer (0-234) ng/mlDDU Heparin Anti-Xa Level (0.3-0.7) U.I./ml POC ABG pO2 (83-108) mmHg ABG Hemoglobin (12.0-17.5) ABG Oxyhemoglobin (94-98) ABG Chloride (98-107) mmol/L ABG Glucose (65-95) mg/dL Sodium 146 H D (137-145) mmol/L Chloride 116.0 H (98-107) mmol/L Carbon Dioxide 20 L (22-30) mmol/L BUN 40 H (7-17) mg/dL Glucose 234 H (65-100) mg/dL POC Glucose 232 H (70-105) mg/dL Calcium 7.5 L (8.4-10.2) mg/dL Magnesium 3.10 H (1.7-2.3) mg/dL Ferritin (10.0-200.0) ng/mL Lactate Dehydrogenase 1274 H (91-180) units/L C-Reactive Protein 2.80 H (0.00-1.30) mg/dL Arterial Blood Glucose (65-95) mg/dL Crossmatch 12/12/20 12/12/20 12/12/20 Range/Units 06:04 08:10 08:10 WBC (4.5-11.0) K/mm3 RBC (3.65-5.03) M/mm3 Hgb 8.2 L (10.1-14.3) gm/dl Hct 25.9 L (30.3-42.9) % MCH (28-32) pg RDW (13.2-15.2) % Plt Count (140-440) K/mm3 PT (12.2-14.9) Sec. INR (0.87-1.13) Fibrinogen 100 L* (211-480) mg/dl D-Dimer > 83740 H (0-234) ng/mlDDU Heparin Anti-Xa Level (0.3-0.7) U.I./ml POC ABG pO2 (83-108) mmHg ABG Hemoglobin (12.0-17.5) ABG Oxyhemoglobin (94-98) ABG Chloride (98-107) mmol/L ABG Glucose (65-95) mg/dL Sodium (137-145) mmol/L Chloride (98-107) mmol/L Carbon Dioxide (22-30) mmol/L BUN (7-17) mg/dL Glucose (65-100) mg/dL POC Glucose (70-105) mg/dL Calcium (8.4-10.2) mg/dL Magnesium (1.7-2.3) mg/dL Ferritin 240.7 H (10.0-200.0) ng/mL Lactate Dehydrogenase (91-180) units/L C-Reactive Protein (0.00-1.30) mg/dL Arterial Blood Glucose (65-95) mg/dL Crossmatch 12/12/20 Range/Units 11:49 WBC (4.5-11.0) K/mm3 RBC (3.65-5.03) M/mm3 Hgb (10.1-14.3) gm/dl Hct (30.3-42.9) % MCH (28-32) pg RDW (13.2-15.2) % Plt Count (140-440) K/mm3 PT (12.2-14.9) Sec. INR (0.87-1.13) Fibrinogen (211-480) mg/dl D-Dimer (0-234) ng/mlDDU Heparin Anti-Xa Level (0.3-0.7) U.I./ml POC ABG pO2 (83-108) mmHg ABG Hemoglobin (12.0-17.5) ABG Oxyhemoglobin (94-98) ABG Chloride (98-107) mmol/L ABG Glucose (65-95) mg/dL Sodium (137-145) mmol/L Chloride (98-107) mmol/L Carbon Dioxide (22-30) mmol/L BUN (7-17) mg/dL Glucose (65-100) mg/dL POC Glucose 215 H (70-105) mg/dL Calcium (8.4-10.2) mg/dL Magnesium (1.7-2.3) mg/dL Ferritin (10.0-200.0) ng/mL Lactate Dehydrogenase (91-180) units/L C-Reactive Protein (0.00-1.30) mg/dL Arterial Blood Glucose (65-95) mg/dL Crossmatch Medications & Allergies - Medications Allergies/Adverse Reactions: Allergies shellfish derived Allergy (Verified 12/02/20 03:37) Unknown Home Medications: Home Medications Medication Instructions Recorded Confirmed Last Taken Type [id number] 334-134-5 mg Tab 3 mg PO DAILY 12/03/20 12/03/20 12/02/20 History Iron 65 mg PO DAILY 12/03/20 12/03/20 12/02/20 History Lisinopril/Hydrochlorothiazide 20 mg PO DAILY 12/03/20 12/03/20 Unknown History Metformin HCl [metFORMIN] 1,000 mg PO BID 12/03/20 12/03/20 12/02/20 History Simvastatin 40 mg PO DAILY 12/03/20 12/03/20 Unknown History glipiZIDE 10 mg PO DAILY 12/03/20 12/03/20 Unknown History Active Medications: Generic Name Dose Route Start Last Admin Trade Name Freq PRN Reason Stop Dose Admin Acetaminophen 650 mg 12/02/20 05:09 12/06/20 21:12 Acetaminophen 325 Mg Tab PO 650 mg Q4H PRN Administration Pain MILD(1-3)/Fever >100.5/LARA Albuterol 2.5 mg 12/02/20 05:09 Albuterol 2.5 Mg/3 Ml Nebu IH Q3HRT PRN Shortness Of Breath Lipase/Protease/Amylase 1 each 12/09/20 10:32 Lipase 10,500/Protease 25,000/Amylase 43,750 (Units) Dr Cap FEEDTUBE PRN PRN For Clogged Feeding Tube Ascorbic Acid 500 mg 12/03/20 22:00 12/12/20 09:38 Ascorbic Acid 500 Mg Tab PO 500 mg BID AZAEL Administration Aspirin 81 mg 12/08/20 13:00 12/12/20 09:38 Aspirin 81 Mg Tab Chew PO 81 mg QDAY AZAEL Administration Atorvastatin Calcium 40 mg 12/08/20 22:00 12/11/20 21:24 Atorvastatin 40 Mg Tab PO 40 mg QHS AZAEL Administration Cholecalciferol 5,000 unit 12/02/20 10:00 12/12/20 09:38 Cholecalciferol (Vit D3) 5,000 Unit Tab PO 5,000 unit DAILY AZAEL Administration Clopidogrel Bisulfate 75 mg 12/09/20 10:00 12/12/20 09:38 Clopidogrel 75 Mg Tab PO 75 mg QDAY AZAEL Administration Dextrose 50 ml 12/02/20 05:09 12/05/20 08:09 Dextrose 50% In Water (25gm) 50 Ml Syringe IV 50 ml Q30MIN PRN Administration Hypoglycemia Protocol Docusate Sodium 100 mg 12/02/20 10:00 12/12/20 09:38 Docusate Sodium 100 Mg Cap PO 100 mg BID AZAEL Administration Fentanyl 50 mcg 12/08/20 15:13 Fentanyl 100 Mcg/2 Ml Inj IV Q10MIN PRN ANALGESIA Hydrophilic Ointment 1 applic 12/08/20 15:56 Lip Therapy Vaseline TP Q2HR PRN Dry Lips Fentanyl Citrate 2,000 mcg in 100 mls @ 3.243 mls/hr 12/08/20 16:00 12/12/20 13:46 Fentanyl Drip Premix IV 4 mcg/kg/hr TITR AZAEL 12.973 mls/hr Administration Protocol 1 MCG/KG/HR NORepinephrine/NS 8 MG-250 ML 8 mg in 250 mls @ 3.75 mls/hr 12/08/20 16:00 12/12/20 11:07 Norepinephrine/Ns 8 Mg-250 Ml (Double Conc) IV 6 mcg/min TITRATE AZAEL 11.25 mls/hr Administration Protocol 2 MCG/MIN Propofol 1,000 mg in 100 mls @ 1.946 mls/hr 12/08/20 17:00 12/12/20 11:07 Diprivan 10 Mg/Ml IV 20 mcg/kg/min TITR AZAEL 7.784 mls/hr Administration Protocol 5 MCG/KG/MIN Sodium Chloride 500 mls @ 1 mls/hr 12/08/20 17:19 Nacl 0.9% 500 Ml IV DIRECT PRN ARTERIAL LINE FLUSH Cefepime HCl 2 gm in 100 mls @ 200 mls/hr 12/09/20 14:00 12/12/20 02:50 Cefepime/Ns 2 Gm/100 Ml IV 12/14/20 02:29 200 mls/hr Q12H AZAEL Administration Protocol Vancomycin HCl 1 gm in 250 mls @ 167.007 mls/hr 12/10/20 14:00 12/11/20 14:15 Vancomycin/Ns 1 Gm/250 Ml IV 12/13/20 15:30 167.007 mls/hr Q24H AZAEL Administration Vasopressin 20 unit/ Sodium 101 mls @ 9.09 mls/hr 12/10/20 04:00 12/12/20 00:15 Chloride IV 0.03 units/min TITR AZAEL 9.09 mls/hr Administration Protocol 0.03 UNITS/MIN Pantoprazole Sodium 80 mg/ 100 mls @ 10 mls/hr 12/10/20 17:00 12/12/20 00:30 Sodium Chloride IV 8 mg/hr DIRECT AZAEL 10 mls/hr Administration 8 MG/HR Insulin Glargine 15 units 12/12/20 22:00 Insulin Glargine 100 Units/Ml SUB-Q QHS [facility] Insulin Human Lispro 0 unit 12/09/20 12:00 12/12/20 13:46 Insulin Lispro 100 Unit/Ml SUB-Q 6 unit Q6HR [facility] Administration Protocol Metoclopramide HCl 5 mg 12/11/20 12:00 12/12/20 05:18 Metoclopramide 10 Mg/2 Ml Inj IV 5 mg Q6H [facility] Administration Multi-Ingred Cream/Lotion/Oil/Oint 1 applic 12/08/20 15:56 Mineral Oil/Petrolatum, White Ophth Oint 3.5 Gm OU Q4HR PRN Dry Eye(s) Naloxone HCl 0.1 mg 12/02/20 05:09 Naloxone 0.4 Mg/1 Ml Inj IV Q2MIN PRN Res Rate </= 8 or 02 SAT < 92% Nitroglycerin 1 inch 12/08/20 14:00 12/12/20 09:38 Nitroglycerin 2% Oint 1 Gm TP 1 inch QIDNTG AZAEL Administration Protocol Ondansetron HCl 4 mg 12/02/20 05:09 Ondansetron 4 Mg/2 Ml Inj IV Q6H PRN Nausea And Vomiting Senna/Docusate Sodium 1 tab 12/08/20 22:00 12/12/20 09:36 Sennosides/Docusate Sodium 8.6/50 Mg Tab FEEDTUBE 1 tab BID AZAEL Administration Simple Syrup 30 ml 12/09/20 10:32 Simple Syrup 15 Ml FEEDTUBE PRN PRN Hypoglycemia Sodium Bicarbonate 325 mg 12/09/20 10:32 Sodium Bicarbonate 325 Mg Tab FEEDTUBE PRN PRN For Clogged Feeding Tube Sodium Chloride 10 ml 12/02/20 10:00 12/12/20 09:39 Sodium Chloride 0.9% 10 Ml Flush Syringe IV 10 ml BID AZAEL Administration Sodium Chloride 10 ml 12/02/20 05:09 Sodium Chloride 0.9% 10 Ml Flush Syringe IV PRN PRN LINE FLUSH Zinc Sulfate 220 mg 12/02/20 10:00 12/12/20 09:37 Zinc Sulfate 220 Mg Cap PO 220 mg QDAY AZAEL Administration HEART Score - HEART Score Troponin: Troponin T 0.487 ng/mL (0.00-0.029) H* D 12/09/20 13:08
--- NOTE | 2020-12-12 14:19 | Progress Note ---
Assessment and Plan Acute hypoxemic respiratory failure COVID-19 infection STEMI Bilateral pneumonia Acute respiratory distress syndrome DM II Hypertension Elevated serum inflammatory markers to include LDH, ferritin and D-dimers Anemia - Heme-Onc consult (? HIT) - appreciate vascular surgery input - supportive transfusions for serum Hb < 7.0 - continue to trend H&H meanwhile - continue to wean vasopressors for target MAP > 65 mmHg - aggressive medical therapy for STEMI otherwise per cardiology - continue daily SAT's & SBT assessment as tolerated - continue to wean supplemental oxygen for target O2 sat's > 92% acutely - VAP bundle addressed - continue care as below otherwise; - continue bronchodilators with pulmonary hygiene per RT - continue accuchecks with glycemic control per SSI (While critically ill target blood glucose of 140-180 mg/dL; avoid hypoglycemia) - avoid nephrotoxins, renally dose all medications - continue to avoid benzodiazepine's, reduce the possibility of delirium - completed Anti-infective's per ID rec's - prn analgesia per pain score - Maintenance of sleep-wake cycle, avoid delirium - G.I. & VTE prophylaxis - PT/OT/ROM exercises - mobility protocols for pressure ulcer prophylaxis - Monitor hemodynamics closely - continue other care per attending / other consultants COVID SPECIFIC INTERVENTIONS - Remdesivir as per ID/Pulmonary developed protocols (receiving) - continue systemic steroids for severe COVID-19 infection (Decadron) - follow repeat COVID tests results - zinc and vitamin C supplementation - Monitor inflammatory markers per facility protocol - ferritin, Ddimer, CRP - therapeutic anticoagulation per system Protocol based on d-dimer and clinical considerations (VTE Prophylaxis) - Continue contact and airborne isolation .... Re-evaluate in am & prn CONDITION: CRITICAL PROGNOSIS: GUARDED CODE STATUS: FULL CODE The high probability of a clinically significant, sudden or life-threatening deterioration of the [respiratory, cardiovascular & neurologic] system(s) required my full and direct attention, intervention and personal management. The aggregate critical care time was [32] minutes without overlap. Time includes sp ent on; [x] Data Review and interpretation [x] Patient assessment and monitoring of vital signs [x] Documentation [x] Medication orders and management Subjective Date of service: 12/12/20 Principal diagnosis: Ac hypoxemic resp failure; COVID-19 infection; Pneumonia; ARDS; DM II; HTN Interval history: Patient is seen today for: Acute hypoxemic respiratory failure; COVID-19 infection; Pneumonia; ARDS; DM II; HTN Seen and examined at bedside; 24hour events reviewed; nursing and respiratory care staff consulted; no adverse overnight events reported to me; resting in bed; remains on MVS; H&H still trending down without gross bleed and IV Heparin on hold; still with cyanosis to tip of fingers and some toes; FiO2 at 75% with peep at 12 Objective Vital Signs - 12hr 12/12/20 12/12/20 12/12/20 02:30 02:45 03:00 Temperature Pulse Rate 59 L 60 59 L Respiratory 24 24 24 Rate Blood Pressure 106/44 111/50 114/45 O2 Sat by Pulse 100 100 100 Oximetry 12/12/20 12/12/20 12/12/20 03:15 03:30 03:32 Temperature 99.4 F Pulse Rate 59 L 60 Respiratory 24 24 Rate Blood Pressure 107/46 115/52 O2 Sat by Pulse 100 100 Oximetry 12/12/20 12/12/20 12/12/20 03:45 04:00 04:01 Temperature Pulse Rate 73 71 80 Respiratory 24 24 24 Rate Blood Pressure 115/52 118/58 O2 Sat by Pulse 100 98 100 Oximetry 12/12/20 12/12/20 12/12/20 04:08 04:15 04:30 Temperature Pulse Rate 60 89 86 Respiratory 21 24 Rate Blood Pressure 115/52 124/58 125/68 O2 Sat by Pulse 100 100 100 Oximetry 12/12/20 12/12/20 12/12/20 04:45 05:00 05:15 Temperature Pulse Rate 82 87 85 Respiratory 24 24 24 Rate Blood Pressure 124/58 122/60 131/61 O2 Sat by Pulse 100 100 100 Oximetry 12/12/20 12/12/20 12/12/20 05:18 05:30 05:45 Temperature Pulse Rate 80 86 81 Respiratory 24 24 Rate Blood Pressure 131/61 130/67 120/57 O2 Sat by Pulse 100 100 Oximetry 12/12/20 12/12/20 12/12/20 06:00 06:15 06:30 Temperature Pulse Rate 88 83 91 H Respiratory 24 24 24 Rate Blood Pressure 131/62 131/62 133/71 O2 Sat by Pulse 100 100 96 Oximetry 12/12/20 12/12/20 12/12/20 06:45 07:00 07:15 Temperature Pulse Rate 97 H 94 H 87 Respiratory 23 24 24 Rate Blood Pressure 133/71 115/61 115/61 O2 Sat by Pulse 93 100 97 Oximetry 12/12/20 12/12/20 12/12/20 07:30 07:45 08:00 Temperature 100 F H Pulse Rate 81 85 83 Respiratory 24 24 24 Rate Blood Pressure 107/56 123/64 94/51 O2 Sat by Pulse 100 100 100 Oximetry 12/12/20 12/12/20 12/12/20 08:15 08:30 08:45 Temperature Pulse Rate 76 84 86 Respiratory 23 24 24 Rate Blood Pressure 94/51 100/61 99/63 O2 Sat by Pulse 100 100 100 Oximetry 12/12/20 12/12/20 12/12/20 09:00 09:15 09:30 Temperature Pulse Rate 90 86 96 H Respiratory 24 24 24 Rate Blood Pressure 108/62 99/48 119/71 O2 Sat by Pulse 100 100 100 Oximetry 12/12/20 12/12/20 12/12/20 09:45 10:00 10:15 Temperature Pulse Rate 101 H 98 H 94 H Respiratory 23 24 24 Rate Blood Pressure 128/70 131/74 134/63 O2 Sat by Pulse 100 100 100 Oximetry 12/12/20 12/12/20 12/12/20 10:30 10:45 11:01 Temperature Pulse Rate 89 92 H 96 H Respiratory 24 24 24 Rate Blood Pressure 120/60 120/64 138/73 O2 Sat by Pulse 100 100 100 Oximetry Constitutional: no acute distress (sedated), other (elderly female with mildly increased respiratory effort at rest on MVS) Eyes: non-icteric ENT: oropharynx moist, other (ETT 23 cm JENNIFER) Neck: supple, no lymphadenopathy, no JVD Effort: mildly labored Ascultation: Bilateral: rhonchi (bases) Percussion: Bilateral: not dull Cardiovascular: regular rate and rhythm Gastrointestinal: normoactive bowel sounds, soft, non-tender, non-distended Integumentary: normal Extremities: no cyanosis, no edema, pulses normal, no ischemia or petechiae, other (right hand swollen but warm and pulses palpable) Neurologic: non-focal exam, pupils equal and round, unable to assess, other (sedated) Psychiatric: other (unable to assess re: AMS) CBC and BMP: 12/13/20 06:55 12/13/20 06:55 ABG, PT/INR, D-dimer: ABG ABG pH 7.380 (7.320-7.450) 12/12/20 04:00 POC ABG pCO2 41.5 mmHg (32.0-48.0) 12/12/20 04:00 POC ABG pO2 79.5 mmHg (83-108) L 12/12/20 04:00 POC ABG HCO3 24.0 12/12/20 04:00 ABG O2 Saturation 94.7 (0-100) 12/12/20 04:00 PT/INR, D-dimer PT 17.3 Sec. (12.2-14.9) H 12/11/20 15:45 INR 1.35 (0.87-1.13) H 12/11/20 15:45 D-Dimer > 29076 ng/mlDDU (0-234) H 12/12/20 08:10 Abnormal lab findings: Abnormal Labs 12/02/20 12/02/20 12/02/20 03:58 03:58 03:58 WBC RBC 3.57 L Hgb 8.9 L Hct 27.2 L MCV 76 L MCH 25 L RDW 17.6 H Plt Count Lymph % (Auto) 6.7 L Lymph # (Auto) 0.3 L Seg Neutrophils % 87.7 H Seg Neuts % (Manual) Lymphocytes % (Manual) Nucleated RBC % Seg Neutrophils # Man Lymphocytes # (Manual) PT INR APTT Fibrinogen D-Dimer 1559.33 H Heparin Anti-Xa Level ABG pH POC ABG pCO2 POC ABG pO2 ABG Hemoglobin ABG Oxyhemoglobin ABG Sodium ABG Potassium ABG Chloride ABG Glucose Carboxyhemoglobin Sodium 130 L Potassium Chloride 90.0 L Carbon Dioxide BUN 20 H Creatinine Glucose 346 H POC Glucose Hemoglobin A1c Lactic Acid Calcium Phosphorus Magnesium 2.40 H Ferritin AST 43 H Alkaline Phosphatase Lactate Dehydrogenase 582 H Total Creatine Kinase CK-MB (CK-2) CK-MB (CK-2) Rel Index Troponin T C-Reactive Protein 34.20 H NT-Pro-B Natriuret Pep Total Protein Albumin 3.1 L Triglycerides LDL Cholesterol Direct HDL Cholesterol Arterial Blood Glucose Arterial Blood Ionized Calcium Coronavirus (PCR) Crossmatch 12/02/20 12/02/20 12/02/20 03:58 06:15 07:37 WBC RBC Hgb Hct MCV MCH RDW Plt Count Lymph % (Auto) Lymph # (Auto) Seg Neutrophils % Seg Neuts % (Manual) Lymphocytes % (Manual) Nucleated RBC % Seg Neutrophils # Man Lymphocytes # (Manual) PT INR APTT Fibrinogen D-Dimer Heparin Anti-Xa Level ABG pH POC ABG pCO2 POC ABG pO2 ABG Hemoglobin ABG Oxyhemoglobin ABG Sodium ABG Potassium ABG Chloride ABG Glucose Carboxyhemoglobin Sodium Potassium Chloride Carbon Dioxide BUN Creatinine Glucose POC Glucose 339 H Hemoglobin A1c 9.5 H Lactic Acid Calcium Phosphorus Magnesium Ferritin 497.6 H AST Alkaline Phosphatase Lactate Dehydrogenase Total Creatine Kinase CK-MB (CK-2) CK-MB (CK-2) Rel Index Troponin T C-Reactive Protein NT-Pro-B Natriuret Pep Total Protein Albumin Triglycerides LDL Cholesterol Direct HDL Cholesterol Arterial Blood Glucose Arterial Blood Ionized Calcium Coronavirus (PCR) Crossmatch 12/02/20 12/02/20 12/02/20 08:15 11:52 13:29 WBC RBC Hgb 9.7 L Hct MCV MCH RDW Plt Count Lymph % (Auto) Lymph # (Auto) Seg Neutrophils % Seg Neuts % (Manual) Lymphocytes % (Manual) Nucleated RBC % Seg Neutrophils # Man Lymphocytes # (Manual) PT INR APTT Fibrinogen D-Dimer Heparin Anti-Xa Level ABG pH POC ABG pCO2 POC ABG pO2 ABG Hemoglobin ABG Oxyhemoglobin ABG Sodium ABG Potassium ABG Chloride ABG Glucose Carboxyhemoglobin Sodium Potassium Chloride Carbon Dioxide BUN Creatinine Glucose POC Glucose 305 H Hemoglobin A1c Lactic Acid Calcium Phosphorus Magnesium Ferritin AST Alkaline Phosphatase Lactate Dehydrogenase Total Creatine Kinase CK-MB (CK-2) CK-MB (CK-2) Rel Index Troponin T C-Reactive Protein NT-Pro-B Natriuret Pep Total Protein Albumin Triglycerides LDL Cholesterol Direct HDL Cholesterol Arterial Blood Glucose Arterial Blood Ionized Calcium Coronavirus (PCR) Positive A Crossmatch 12/02/20 12/02/20 12/02/20 16:53 22:39 23:39 WBC RBC Hgb Hct MCV MCH RDW Plt Count Lymph % (Auto) Lymph # (Auto) Seg Neutrophils % Seg Neuts % (Manual) Lymphocytes % (Manual) Nucleated RBC % Seg Neutrophils # Man Lymphocytes # (Manual) PT INR APTT Fibrinogen D-Dimer Heparin Anti-Xa Level ABG pH POC ABG pCO2 POC ABG pO2 ABG Hemoglobin ABG Oxyhemoglobin ABG Sodium ABG Potassium ABG Chloride ABG Glucose Carboxyhemoglobin Sodium 131 L Potassium Chloride 93.8 L Carbon Dioxide BUN 22 H Creatinine Glucose 301 H POC Glucose 281 H 290 H Hemoglobin A1c Lactic Acid Calcium Phosphorus Magnesium Ferritin AST Alkaline Phosphatase Lactate Dehydrogenase Total Creatine Kinase CK-MB (CK-2) CK-MB (CK-2) Rel Index Troponin T C-Reactive Protein NT-Pro-B Natriuret Pep Total Protein 6.2 L Albumin 2.8 L Triglycerides LDL Cholesterol Direct HDL Cholesterol Arterial Blood Glucose Arterial Blood Ionized Calcium Coronavirus (PCR) Crossmatch 12/03/20 12/03/20 12/03/20 03:48 03:48 08:59 WBC RBC 3.46 L Hgb 8.6 L Hct 26.5 L MCV 77 L MCH 25 L RDW 18.2 H Plt Count Lymph % (Auto) Lymph # (Auto) Seg Neutrophils % Seg Neuts % (Manual) 93.0 H Lymphocytes % (Manual) 3.0 L Nucleated RBC % Seg Neutrophils # Man Lymphocytes # (Manual) 0.2 L PT INR APTT Fibrinogen D-Dimer Heparin Anti-Xa Level ABG pH POC ABG pCO2 POC ABG pO2 ABG Hemoglobin ABG Oxyhemoglobin ABG Sodium ABG Potassium ABG Chloride ABG Glucose Carboxyhemoglobin Sodium 131 L Potassium Chloride 92.5 L Carbon Dioxide BUN 22 H Creatinine Glucose 279 H POC Glucose 258 H Hemoglobin A1c Lactic Acid Calcium 8.2 L Phosphorus Magnesium Ferritin AST Alkaline Phosphatase Lactate Dehydrogenase Total Creatine Kinase CK-MB (CK-2) CK-MB (CK-2) Rel Index Troponin T C-Reactive Protein NT-Pro-B Natriuret Pep Total Protein 5.6 L Albumin 2.8 L Triglycerides LDL Cholesterol Direct HDL Cholesterol Arterial Blood Glucose Arterial Blood Ionized Calcium Coronavirus (PCR) Crossmatch 12/03/20 12/03/20 12/03/20 12:45 15:57 17:01 WBC RBC Hgb Hct MCV MCH RDW Plt Count Lymph % (Auto) Lymph # (Auto) Seg Neutrophils % Seg Neuts % (Manual) Lymphocytes % (Manual) Nucleated RBC % Seg Neutrophils # Man Lymphocytes # (Manual) PT INR APTT Fibrinogen D-Dimer Heparin Anti-Xa Level ABG pH 7.527 H POC ABG pCO2 POC ABG pO2 50.4 L ABG Hemoglobin ABG Oxyhemoglobin ABG Sodium 129.8 L ABG Potassium ABG Chloride 95.0 L ABG Glucose 394 H Carboxyhemoglobin Sodium Potassium Chloride Carbon Dioxide BUN Creatinine Glucose POC Glucose 349 H 359 H Hemoglobin A1c Lactic Acid Calcium Phosphorus Magnesium Ferritin AST Alkaline Phosphatase Lactate Dehydrogenase Total Creatine Kinase CK-MB (CK-2) CK-MB (CK-2) Rel Index Troponin T C-Reactive Protein NT-Pro-B Natriuret Pep Total Protein Albumin Triglycerides LDL Cholesterol Direct HDL Cholesterol Arterial Blood Glucose 394 H Arterial Blood Ionized Calcium Coronavirus (PCR) Crossmatch 12/03/20 12/04/20 12/04/20 21:16 04:27 06:49 WBC RBC Hgb Hct MCV MCH RDW Plt Count Lymph % (Auto) Lymph # (Auto) Seg Neutrophils % Seg Neuts % (Manual) Lymphocytes % (Manual) Nucleated RBC % Seg Neutrophils # Man Lymphocytes # (Manual) PT INR APTT Fibrinogen D-Dimer Heparin Anti-Xa Level ABG pH 7.530 H POC ABG pCO2 POC ABG pO2 37.6 L ABG Hemoglobin 9.6 L ABG Oxyhemoglobin 72.5 L ABG Sodium 132.3 L ABG Potassium ABG Chloride ABG Glucose 180 H Carboxyhemoglobin 0.4 L Sodium 136 L Potassium Chloride 97.3 L Carbon Dioxide BUN 23 H Creatinine Glucose 166 H POC Glucose 295 H Hemoglobin A1c Lactic Acid Calcium Phosphorus Magnesium Ferritin AST Alkaline Phosphatase Lactate Dehydrogenase Total Creatine Kinase CK-MB (CK-2) CK-MB (CK-2) Rel Index Troponin T C-Reactive Protein NT-Pro-B Natriuret Pep Total Protein 5.7 L Albumin 2.6 L Triglycerides LDL Cholesterol Direct HDL Cholesterol Arterial Blood Glucose 180 H Arterial Blood Ionized Calcium Coronavirus (PCR) Crossmatch 12/04/20 12/04/20 12/04/20 07:49 11:37 16:22 WBC RBC Hgb Hct MCV MCH RDW Plt Count Lymph % (Auto) Lymph # (Auto) Seg Neutrophils % Seg Neuts % (Manual) Lymphocytes % (Manual) Nucleated RBC % Seg Neutrophils # Man Lymphocytes # (Manual) PT INR APTT Fibrinogen D-Dimer Heparin Anti-Xa Level ABG pH POC ABG pCO2 POC ABG pO2 ABG Hemoglobin ABG Oxyhemoglobin ABG Sodium ABG Potassium ABG Chloride ABG Glucose Carboxyhemoglobin Sodium Potassium Chloride Carbon Dioxide BUN Creatinine Glucose POC Glucose 180 H 213 H 177 H Hemoglobin A1c Lactic Acid Calcium Phosphorus Magnesium Ferritin AST Alkaline Phosphatase Lactate Dehydrogenase Total Creatine Kinase CK-MB (CK-2) CK-MB (CK-2) Rel Index Troponin T C-Reactive Protein NT-Pro-B Natriuret Pep Total Protein Albumin Triglycerides LDL Cholesterol Direct HDL Cholesterol Arterial Blood Glucose Arterial Blood Ionized Calcium Coronavirus (PCR) Crossmatch 12/04/20 12/04/20 12/05/20 22:21 23:12 05:16 WBC RBC Hgb Hct MCV MCH RDW Plt Count Lymph % (Auto) Lymph # (Auto) Seg Neutrophils % Seg Neuts % (Manual) Lymphocytes % (Manual) Nucleated RBC % Seg Neutrophils # Man Lymphocytes # (Manual) PT INR APTT Fibrinogen D-Dimer Heparin Anti-Xa Level ABG pH 7.494 H POC ABG pCO2 POC ABG pO2 56.3 L ABG Hemoglobin 8.6 L ABG Oxyhemoglobin 88.3 L ABG Sodium 131.8 L ABG Potassium ABG Chloride ABG Glucose 205 H Carboxyhemoglobin 0.3 L Sodium Potassium Chloride Carbon Dioxide BUN 19 H Creatinine Glucose 64 L POC Glucose 207 H Hemoglobin A1c Lactic Acid Calcium Phosphorus Magnesium Ferritin AST Alkaline Phosphatase Lactate Dehydrogenase Total Creatine Kinase CK-MB (CK-2) CK-MB (CK-2) Rel Index Troponin T C-Reactive Protein NT-Pro-B Natriuret Pep Total Protein 6.0 L Albumin 2.8 L Triglycerides LDL Cholesterol Direct HDL Cholesterol Arterial Blood Glucose 205 H Arterial Blood Ionized Calcium Coronavirus (PCR) Crossmatch 12/05/20 12/05/20 12/05/20 08:01 09:07 12:31 WBC RBC Hgb Hct MCV MCH RDW Plt Count Lymph % (Auto) Lymph # (Auto) Seg Neutrophils % Seg Neuts % (Manual) Lymphocytes % (Manual) Nucleated RBC % Seg Neutrophils # Man Lymphocytes # (Manual) PT INR APTT Fibrinogen D-Dimer Heparin Anti-Xa Level ABG pH POC ABG pCO2 POC ABG pO2 ABG Hemoglobin ABG Oxyhemoglobin ABG Sodium ABG Potassium ABG Chloride ABG Glucose Carboxyhemoglobin Sodium Potassium Chloride Carbon Dioxide BUN Creatinine Glucose POC Glucose 49 L 157 H 113 H Hemoglobin A1c Lactic Acid Calcium Phosphorus Magnesium Ferritin AST Alkaline Phosphatase Lactate Dehydrogenase Total Creatine Kinase CK-MB (CK-2) CK-MB (CK-2) Rel Index Troponin T C-Reactive Protein NT-Pro-B Natriuret Pep Total Protein Albumin Triglycerides LDL Cholesterol Direct HDL Cholesterol Arterial Blood Glucose Arterial Blood Ionized Calcium Coronavirus (PCR) Crossmatch 12/05/20 12/06/20 12/06/20 16:57 07:51 12:07 WBC RBC Hgb Hct MCV MCH RDW Plt Count Lymph % (Auto) Lymph # (Auto) Seg Neutrophils % Seg Neuts % (Manual) Lymphocytes % (Manual) Nucleated RBC % Seg Neutrophils # Man Lymphocytes # (Manual) PT INR APTT Fibrinogen D-Dimer Heparin Anti-Xa Level ABG pH POC ABG pCO2 POC ABG pO2 ABG Hemoglobin ABG Oxyhemoglobin ABG Sodium ABG Potassium ABG Chloride ABG Glucose Carboxyhemoglobin Sodium Potassium Chloride Carbon Dioxide BUN Creatinine Glucose POC Glucose 223 H 110 H 229 H Hemoglobin A1c Lactic Acid Calcium Phosphorus Magnesium Ferritin AST Alkaline Phosphatase Lactate Dehydrogenase Total Creatine Kinase CK-MB (CK-2) CK-MB (CK-2) Rel Index Troponin T C-Reactive Protein NT-Pro-B Natriuret Pep Total Protein Albumin Triglycerides LDL Cholesterol Direct HDL Cholesterol Arterial Blood Glucose Arterial Blood Ionized Calcium Coronavirus (PCR) Crossmatch 12/06/20 12/06/20 12/06/20 14:56 16:00 18:53 WBC RBC Hgb 9.6 L Hct MCV MCH RDW Plt Count Lymph % (Auto) Lymph # (Auto) Seg Neutrophils % Seg Neuts % (Manual) Lymphocytes % (Manual) Nucleated RBC % Seg Neutrophils # Man Lymphocytes # (Manual) PT INR APTT Fibrinogen D-Dimer > 09110 H Heparin Anti-Xa Level ABG pH POC ABG pCO2 POC ABG pO2 ABG Hemoglobin ABG Oxyhemoglobin ABG Sodium ABG Potassium ABG Chloride ABG Glucose Carboxyhemoglobin Sodium Potassium Chloride Carbon Dioxide BUN Creatinine Glucose POC Glucose 235 H Hemoglobin A1c Lactic Acid Calcium Phosphorus Magnesium Ferritin AST Alkaline Phosphatase Lactate Dehydrogenase Total Creatine Kinase CK-MB (CK-2) CK-MB (CK-2) Rel Index Troponin T C-Reactive Protein NT-Pro-B Natriuret Pep Total Protein Albumin Triglycerides LDL Cholesterol Direct HDL Cholesterol Arterial Blood Glucose Arterial Blood Ionized Calcium Coronavirus (PCR) Crossmatch 12/06/20 12/06/20 12/07/20 18:53 23:15 07:03 WBC RBC Hgb Hct MCV MCH RDW Plt Count Lymph % (Auto) Lymph # (Auto) Seg Neutrophils % Seg Neuts % (Manual) Lymphocytes % (Manual) Nucleated RBC % Seg Neutrophils # Man Lymphocytes # (Manual) PT 17.4 H INR 1.37 H APTT Fibrinogen D-Dimer Heparin Anti-Xa Level ABG pH POC ABG pCO2 POC ABG pO2 ABG Hemoglobin ABG Oxyhemoglobin ABG Sodium ABG Potassium ABG Chloride ABG Glucose Carboxyhemoglobin Sodium Potassium Chloride Carbon Dioxide BUN 23 H Creatinine Glucose 62 L POC Glucose 170 H Hemoglobin A1c Lactic Acid Calcium Phosphorus Magnesium Ferritin AST Alkaline Phosphatase Lactate Dehydrogenase Total Creatine Kinase CK-MB (CK-2) CK-MB (CK-2) Rel Index Troponin T C-Reactive Protein NT-Pro-B Natriuret Pep Total Protein Albumin Triglycerides LDL Cholesterol Direct HDL Cholesterol Arterial Blood Glucose Arterial Blood Ionized Calcium Coronavirus (PCR) Crossmatch 12/07/20 12/07/20 12/07/20 07:03 07:28 17:45 WBC RBC Hgb Hct MCV MCH RDW Plt Count Lymph % (Auto) Lymph # (Auto) Seg Neutrophils % Seg Neuts % (Manual) Lymphocytes % (Manual) Nucleated RBC % Seg Neutrophils # Man Lymphocytes # (Manual) PT INR APTT Fibrinogen D-Dimer Heparin Anti-Xa Level 0.85 H ABG pH POC ABG pCO2 POC ABG pO2 ABG Hemoglobin ABG Oxyhemoglobin ABG Sodium ABG Potassium ABG Chloride ABG Glucose Carboxyhemoglobin Sodium Potassium Chloride Carbon Dioxide BUN Creatinine Glucose POC Glucose 54 L 196 H Hemoglobin A1c Lactic Acid Calcium Phosphorus Magnesium Ferritin AST Alkaline Phosphatase Lactate Dehydrogenase Total Creatine Kinase CK-MB (CK-2) CK-MB (CK-2) Rel Index Troponin T C-Reactive Protein NT-Pro-B Natriuret Pep Total Protein Albumin Triglycerides LDL Cholesterol Direct HDL Cholesterol Arterial Blood Glucose Arterial Blood Ionized Calcium Coronavirus (PCR) Crossmatch 12/07/20 12/08/20 12/08/20 21:26 13:11 13:25 WBC RBC Hgb Hct MCV MCH RDW Plt Count Lymph % (Auto) Lymph # (Auto) Seg Neutrophils % Seg Neuts % (Manual) Lymphocytes % (Manual) Nucleated RBC % Seg Neutrophils # Man Lymphocytes # (Manual) PT INR APTT Fibrinogen D-Dimer Heparin Anti-Xa Level ABG pH POC ABG pCO2 POC ABG pO2 ABG Hemoglobin ABG Oxyhemoglobin ABG Sodium ABG Potassium ABG Chloride ABG Glucose Carboxyhemoglobin Sodium Potassium Chloride Carbon Dioxide BUN Creatinine Glucose POC Glucose 165 H 62 L Hemoglobin A1c Lactic Acid Calcium Phosphorus Magnesium Ferritin AST Alkaline Phosphatase Lactate Dehydrogenase Total Creatine Kinase 520 H CK-MB (CK-2) 33.2 H CK-MB (CK-2) Rel Index 6.3 H Troponin T 0.646 H* C-Reactive Protein NT-Pro-B Natriuret Pep Total Protein Albumin Triglycerides 181 H LDL Cholesterol Direct 30 L HDL Cholesterol 35 L Arterial Blood Glucose Arterial Blood Ionized Calcium Coronavirus (PCR) Crossmatch 12/08/20 12/08/20 12/08/20 15:36 18:05 20:15 WBC RBC Hgb Hct MCV MCH RDW Plt Count Lymph % (Auto) Lymph # (Auto) Seg Neutrophils % Seg Neuts % (Manual) Lymphocytes % (Manual) Nucleated RBC % Seg Neutrophils # Man Lymphocytes # (Manual) PT INR APTT Fibrinogen D-Dimer Heparin Anti-Xa Level ABG pH 7.117 L POC ABG pCO2 61.7 H POC ABG pO2 39.7 L ABG Hemoglobin 9.0 L ABG Oxyhemoglobin 46.0 L ABG Sodium 135.7 L ABG Potassium 4.6 H ABG Chloride ABG Glucose 235 H Carboxyhemoglobin Sodium Potassium Chloride Carbon Dioxide BUN Creatinine Glucose POC Glucose 163 H Hemoglobin A1c Lactic Acid Calcium Phosphorus Magnesium Ferritin AST Alkaline Phosphatase Lactate Dehydrogenase Total Creatine Kinase 521 H CK-MB (CK-2) 31.5 H CK-MB (CK-2) Rel Index 6.0 H Troponin T 0.648 H* C-Reactive Protein NT-Pro-B Natriuret Pep 1573 H Total Protein Albumin Triglycerides LDL Cholesterol Direct HDL Cholesterol Arterial Blood Glucose 235 H Arterial Blood Ionized Calcium Coronavirus (PCR) Crossmatch 12/08/20 12/08/20 12/08/20 20:15 20:15 20:15 WBC 24.0 H RBC 3.35 L Hgb 8.1 L Hct 26.0 L D MCV 78 L MCH 24 L RDW 18.5 H Plt Count Lymph % (Auto) Lymph # (Auto) Seg Neutrophils % Seg Neuts % (Manual) 91.0 H Lymphocytes % (Manual) 5.0 L Nucleated RBC % Seg Neutrophils # Man 21.8 H Lymphocytes # (Manual) PT INR APTT 62.9 H* Fibrinogen D-Dimer > 24772 H Heparin Anti-Xa Level ABG pH POC ABG pCO2 POC ABG pO2 ABG Hemoglobin ABG Oxyhemoglobin ABG Sodium ABG Potassium ABG Chloride ABG Glucose Carboxyhemoglobin Sodium Potassium 5.1 H D Chloride Carbon Dioxide BUN 27 H Creatinine Glucose 186 H POC Glucose Hemoglobin A1c Lactic Acid Calcium 7.8 L Phosphorus 5.50 H Magnesium 2.40 H Ferritin AST 126 H Alkaline Phosphatase 298 H Lactate Dehydrogenase 2677 H Total Creatine Kinase CK-MB (CK-2) CK-MB (CK-2) Rel Index Troponin T C-Reactive Protein NT-Pro-B Natriuret Pep Total Protein 4.9 L Albumin 2.6 L Triglycerides LDL Cholesterol Direct HDL Cholesterol Arterial Blood Glucose Arterial Blood Ionized Calcium Coronavirus (PCR) Crossmatch 12/08/20 12/08/20 12/09/20 21:00 22:03 06:00 WBC RBC Hgb Hct MCV MCH RDW Plt Count Lymph % (Auto) Lymph # (Auto) Seg Neutrophils % Seg Neuts % (Manual) Lymphocytes % (Manual) Nucleated RBC % Seg Neutrophils # Man Lymphocytes # (Manual) PT INR APTT Fibrinogen D-Dimer Heparin Anti-Xa Level 0.85 H ABG pH 7.318 L POC ABG pCO2 51.9 H POC ABG pO2 74.6 L ABG Hemoglobin 8.9 L ABG Oxyhemoglobin 90.8 L ABG Sodium ABG Potassium 4.9 H ABG Chloride ABG Glucose 141 H Carboxyhemoglobin Sodium Potassium Chloride Carbon Dioxide BUN Creatinine Glucose POC Glucose 163 H Hemoglobin A1c Lactic Acid Calcium Phosphorus Magnesium Ferritin AST Alkaline Phosphatase Lactate Dehydrogenase Total Creatine Kinase CK-MB (CK-2) CK-MB (CK-2) Rel Index Troponin T C-Reactive Protein NT-Pro-B Natriuret Pep Total Protein Albumin Triglycerides LDL Cholesterol Direct HDL Cholesterol Arterial Blood Glucose 141 H Arterial Blood Ionized Calcium 4.5 L Coronavirus (PCR) Crossmatch 12/09/20 12/09/20 12/09/20 08:13 11:53 13:08 WBC RBC Hgb Hct MCV MCH RDW Plt Count Lymph % (Auto) Lymph # (Auto) Seg Neutrophils % Seg Neuts % (Manual) Lymphocytes % (Manual) Nucleated RBC % Seg Neutrophils # Man Lymphocytes # (Manual) PT INR APTT Fibrinogen D-Dimer Heparin Anti-Xa Level 0.94 H ABG pH POC ABG pCO2 50.7 H POC ABG pO2 156.4 H ABG Hemoglobin 8.7 L ABG Oxyhemoglobin ABG Sodium 134.9 L ABG Potassium 5.4 H ABG Chloride ABG Glucose 140 H Carboxyhemoglobin Sodium Potassium Chloride Carbon Dioxide BUN Creatinine Glucose POC Glucose 127 H Hemoglobin A1c Lactic Acid Calcium Phosphorus Magnesium Ferritin AST Alkaline Phosphatase Lactate Dehydrogenase Total Creatine Kinase CK-MB (CK-2) CK-MB (CK-2) Rel Index Troponin T C-Reactive Protein NT-Pro-B Natriuret Pep Total Protein Albumin Triglycerides LDL Cholesterol Direct HDL Cholesterol Arterial Blood Glucose 140 H Arterial Blood Ionized Calcium 4.2 L Coronavirus (PCR) Crossmatch 12/09/20 12/09/20 12/09/20 13:08 13:08 13:08 WBC 20.8 H RBC 3.35 L Hgb 8.3 L Hct 26.2 L MCV 78 L MCH 25 L RDW 19.5 H Plt Count Lymph % (Auto) Lymph # (Auto) Seg Neutrophils % Seg Neuts % (Manual) Lymphocytes % (Manual) Nucleated RBC % Seg Neutrophils # Man Lymphocytes # (Manual) PT 15.2 H INR 1.15 H APTT 84.5 H* Fibrinogen D-Dimer 4051.67 H Heparin Anti-Xa Level ABG pH POC ABG pCO2 POC ABG pO2 ABG Hemoglobin ABG Oxyhemoglobin ABG Sodium ABG Potassium ABG Chloride ABG Glucose Carboxyhemoglobin Sodium Potassium Chloride Carbon Dioxide BUN 34 H Creatinine 1.4 H Glucose 156 H POC Glucose Hemoglobin A1c Lactic Acid Calcium 8.1 L Phosphorus Magnesium Ferritin AST 97 H Alkaline Phosphatase 241 H Lactate Dehydrogenase Total Creatine Kinase CK-MB (CK-2) CK-MB (CK-2) Rel Index Troponin T C-Reactive Protein NT-Pro-B Natriuret Pep Total Protein 5.2 L Albumin 2.7 L Triglycerides LDL Cholesterol Direct HDL Cholesterol Arterial Blood Glucose Arterial Blood Ionized Calcium Coronavirus (PCR) Crossmatch 12/09/20 12/09/20 12/09/20 13:08 13:08 13:08 WBC RBC Hgb Hct MCV MCH RDW Plt Count Lymph % (Auto) Lymph # (Auto) Seg Neutrophils % Seg Neuts % (Manual) Lymphocytes % (Manual) Nucleated RBC % Seg Neutrophils # Man Lymphocytes # (Manual) PT INR APTT Fibrinogen D-Dimer Heparin Anti-Xa Level ABG pH POC ABG pCO2 POC ABG pO2 ABG Hemoglobin ABG Oxyhemoglobin ABG Sodium ABG Potassium ABG Chloride ABG Glucose Carboxyhemoglobin Sodium Potassium Chloride Carbon Dioxide BUN Creatinine Glucose POC Glucose Hemoglobin A1c Lactic Acid 2.50 H* Calcium Phosphorus 4.70 H Magnesium 2.70 H Ferritin 472.6 H AST Alkaline Phosphatase Lactate Dehydrogenase 2146 H Total Creatine Kinase CK-MB (CK-2) CK-MB (CK-2) Rel Index Troponin T 0.487 H* D C-Reactive Protein 8.70 H NT-Pro-B Natriuret Pep Total Protein Albumin Triglycerides LDL Cholesterol Direct HDL Cholesterol Arterial Blood Glucose Arterial Blood Ionized Calcium Coronavirus (PCR) Crossmatch 12/09/20 12/09/20 12/09/20 13:08 17:17 23:43 WBC RBC Hgb Hct MCV MCH RDW Plt Count Lymph % (Auto) Lymph # (Auto) Seg Neutrophils % Seg Neuts % (Manual) Lymphocytes % (Manual) Nucleated RBC % Seg Neutrophils # Man Lymphocytes # (Manual) PT INR APTT Fibrinogen D-Dimer Heparin Anti-Xa Level ABG pH POC ABG pCO2 POC ABG pO2 ABG Hemoglobin ABG Oxyhemoglobin ABG Sodium ABG Potassium ABG Chloride ABG Glucose Carboxyhemoglobin Sodium Potassium Chloride Carbon Dioxide BUN Creatinine Glucose POC Glucose 179 H 144 H Hemoglobin A1c Lactic Acid Calcium Phosphorus Magnesium Ferritin AST Alkaline Phosphatase Lactate Dehydrogenase Total Creatine Kinase CK-MB (CK-2) CK-MB (CK-2) Rel Index Troponin T C-Reactive Protein NT-Pro-B Natriuret Pep 2396 H Total Protein Albumin Triglycerides LDL Cholesterol Direct HDL Cholesterol Arterial Blood Glucose Arterial Blood Ionized Calcium Coronavirus (PCR) Crossmatch 12/10/20 12/10/20 12/10/20 02:39 03:08 04:10 WBC 19.2 H RBC 2.76 L Hgb 6.7 L Hct 21.7 L MCV MCH 24 L RDW 19.3 H Plt Count Lymph % (Auto) Lymph # (Auto) Seg Neutrophils % Seg Neuts % (Manual) 95.0 H Lymphocytes % (Manual) 1.0 L Nucleated RBC % 3.0 H Seg Neutrophils # Man 18.2 H Lymphocytes # (Manual) 0.2 L PT INR APTT Fibrinogen D-Dimer Heparin Anti-Xa Level ABG pH POC ABG pCO2 POC ABG pO2 ABG Hemoglobin 6.3 L ABG Oxyhemoglobin 93.8 L ABG Sodium ABG Potassium ABG Chloride 108.0 H ABG Glucose 237 H Carboxyhemoglobin Sodium Potassium Chloride Carbon Dioxide BUN Creatinine Glucose POC Glucose Hemoglobin A1c Lactic Acid Calcium Phosphorus Magnesium Ferritin AST Alkaline Phosphatase Lactate Dehydrogenase Total Creatine Kinase CK-MB (CK-2) CK-MB (CK-2) Rel Index Troponin T C-Reactive Protein NT-Pro-B Natriuret Pep Total Protein Albumin Triglycerides LDL Cholesterol Direct HDL Cholesterol Arterial Blood Glucose 237 H Arterial Blood Ionized Calcium 4.3 L Coronavirus (PCR) Crossmatch See Detail 12/10/20 12/10/20 12/10/20 05:42 07:43 11:47 WBC RBC Hgb Hct MCV MCH RDW Plt Count Lymph % (Auto) Lymph # (Auto) Seg Neutrophils % Seg Neuts % (Manual) Lymphocytes % (Manual) Nucleated RBC % Seg Neutrophils # Man Lymphocytes # (Manual) PT INR APTT Fibrinogen D-Dimer Heparin Anti-Xa Level ABG pH POC ABG pCO2 POC ABG pO2 ABG Hemoglobin ABG Oxyhemoglobin ABG Sodium ABG Potassium ABG Chloride ABG Glucose Carboxyhemoglobin Sodium Potassium Chloride Carbon Dioxide BUN 39 H Creatinine 1.5 H Glucose 218 H POC Glucose 209 H 208 H Hemoglobin A1c Lactic Acid Calcium 7.9 L Phosphorus Magnesium Ferritin AST Alkaline Phosphatase Lactate Dehydrogenase Total Creatine Kinase CK-MB (CK-2) CK-MB (CK-2) Rel Index Troponin T C-Reactive Protein NT-Pro-B Natriuret Pep Total Protein Albumin Triglycerides LDL Cholesterol Direct HDL Cholesterol Arterial Blood Glucose Arterial Blood Ionized Calcium Coronavirus (PCR) Crossmatch 12/10/20 12/10/20 12/10/20 13:30 17:26 21:32 WBC RBC Hgb 7.8 L Hct 24.0 L MCV MCH RDW Plt Count Lymph % (Auto) Lymph # (Auto) Seg Neutrophils % Seg Neuts % (Manual) Lymphocytes % (Manual) Nucleated RBC % Seg Neutrophils # Man Lymphocytes # (Manual) PT INR APTT Fibrinogen D-Dimer Heparin Anti-Xa Level ABG pH POC ABG pCO2 POC ABG pO2 ABG Hemoglobin ABG Oxyhemoglobin ABG Sodium ABG Potassium ABG Chloride ABG Glucose Carboxyhemoglobin Sodium Potassium Chloride Carbon Dioxide BUN Creatinine Glucose POC Glucose 184 H 135 H Hemoglobin A1c Lactic Acid Calcium Phosphorus Magnesium Ferritin AST Alkaline Phosphatase Lactate Dehydrogenase Total Creatine Kinase CK-MB (CK-2) CK-MB (CK-2) Rel Index Troponin T C-Reactive Protein NT-Pro-B Natriuret Pep Total Protein Albumin Triglycerides LDL Cholesterol Direct HDL Cholesterol Arterial Blood Glucose Arterial Blood Ionized Calcium Coronavirus (PCR) Crossmatch 12/10/20 12/11/20 12/11/20 23:03 02:57 04:29 WBC RBC Hgb Hct MCV MCH RDW Plt Count Lymph % (Auto) Lymph # (Auto) Seg Neutrophils % Seg Neuts % (Manual) Lymphocytes % (Manual) Nucleated RBC % Seg Neutrophils # Man Lymphocytes # (Manual) PT INR APTT Fibrinogen D-Dimer Heparin Anti-Xa Level ABG pH POC ABG pCO2 POC ABG pO2 ABG Hemoglobin 7.4 L ABG Oxyhemoglobin ABG Sodium ABG Potassium ABG Chloride 110.0 H ABG Glucose 250 H Carboxyhemoglobin Sodium Potassium Chloride Carbon Dioxide BUN Creatinine Glucose POC Glucose 204 H Hemoglobin A1c Lactic Acid Calcium Phosphorus Magnesium Ferritin AST Alkaline Phosphatase Lactate Dehydrogenase Total Creatine Kinase CK-MB (CK-2) CK-MB (CK-2) Rel Index Troponin T C-Reactive Protein NT-Pro-B Natriuret Pep Total Protein Albumin Triglycerides 366 H LDL Cholesterol Direct HDL Cholesterol Arterial Blood Glucose 250 H Arterial Blood Ionized Calcium 4.4 L Coronavirus (PCR) Crossmatch 12/11/20 12/11/20 12/11/20 04:29 04:29 05:05 WBC 16.5 H RBC 2.60 L Hgb 7.0 L Hct 21.8 L MCV MCH 27 L RDW 18.4 H Plt Count 111 L Lymph % (Auto) Lymph # (Auto) Seg Neutrophils % Seg Neuts % (Manual) Lymphocytes % (Manual) Nucleated RBC % Seg Neutrophils # Man Lymphocytes # (Manual) PT INR APTT Fibrinogen D-Dimer Heparin Anti-Xa Level ABG pH POC ABG pCO2 POC ABG pO2 ABG Hemoglobin ABG Oxyhemoglobin ABG Sodium ABG Potassium ABG Chloride ABG Glucose Carboxyhemoglobin Sodium Potassium Chloride 107.5 H Carbon Dioxide BUN 45 H Creatinine 1.4 H Glucose 258 H POC Glucose 250 H Hemoglobin A1c Lactic Acid Calcium 7.7 L Phosphorus Magnesium 3.00 H Ferritin AST 78 H Alkaline Phosphatase 141 H Lactate Dehydrogenase Total Creatine Kinase CK-MB (CK-2) CK-MB (CK-2) Rel Index Troponin T C-Reactive Protein NT-Pro-B Natriuret Pep Total Protein 4.4 L Albumin 2.2 L Triglycerides LDL Cholesterol Direct HDL Cholesterol Arterial Blood Glucose Arterial Blood Ionized Calcium Coronavirus (PCR) Crossmatch 12/11/20 12/11/20 12/11/20 10:25 11:07 15:45 WBC RBC Hgb 6.7 L Hct 21.0 L MCV MCH RDW Plt Count Lymph % (Auto) Lymph # (Auto) Seg Neutrophils % Seg Neuts % (Manual) Lymphocytes % (Manual) Nucleated RBC % Seg Neutrophils # Man Lymphocytes # (Manual) PT INR APTT Fibrinogen D-Dimer Heparin Anti-Xa Level < 0.10 L ABG pH POC ABG pCO2 POC ABG pO2 ABG Hemoglobin ABG Oxyhemoglobin ABG Sodium ABG Potassium ABG Chloride ABG Glucose Carboxyhemoglobin Sodium Potassium Chloride Carbon Dioxide BUN Creatinine Glucose POC Glucose 225 H Hemoglobin A1c Lactic Acid Calcium Phosphorus Magnesium Ferritin AST Alkaline Phosphatase Lactate Dehydrogenase Total Creatine Kinase CK-MB (CK-2) CK-MB (CK-2) Rel Index Troponin T C-Reactive Protein NT-Pro-B Natriuret Pep Total Protein Albumin Triglycerides LDL Cholesterol Direct HDL Cholesterol Arterial Blood Glucose Arterial Blood Ionized Calcium Coronavirus (PCR) Crossmatch 12/11/20 12/11/20 12/11/20 15:45 16:21 17:54 WBC 17.2 H RBC 2.38 L Hgb 6.3 L Hct 19.6 L* MCV MCH 27 L RDW 18.8 H Plt Count 91 L Lymph % (Auto) Lymph # (Auto) Seg Neutrophils % Seg Neuts % (Manual) Lymphocytes % (Manual) Nucleated RBC % Seg Neutrophils # Man Lymphocytes # (Manual) PT 17.3 H INR 1.35 H APTT Fibrinogen 104 L* D-Dimer Heparin Anti-Xa Level ABG pH POC ABG pCO2 POC ABG pO2 ABG Hemoglobin ABG Oxyhemoglobin ABG Sodium ABG Potassium ABG Chloride ABG Glucose Carboxyhemoglobin Sodium Potassium Chloride Carbon Dioxide BUN Creatinine Glucose POC Glucose 259 H Hemoglobin A1c Lactic Acid Calcium Phosphorus Magnesium Ferritin AST Alkaline Phosphatase Lactate Dehydrogenase Total Creatine Kinase CK-MB (CK-2) CK-MB (CK-2) Rel Index Troponin T C-Reactive Protein NT-Pro-B Natriuret Pep Total Protein Albumin Triglycerides LDL Cholesterol Direct HDL Cholesterol Arterial Blood Glucose Arterial Blood Ionized Calcium Coronavirus (PCR) Crossmatch 12/11/20 12/11/20 12/11/20 21:28 23:19 Unknown WBC RBC Hgb 8.3 L Hct 26.0 L D MCV MCH RDW Plt Count Lymph % (Auto) Lymph # (Auto) Seg Neutrophils % Seg Neuts % (Manual) Lymphocytes % (Manual) Nucleated RBC % Seg Neutrophils # Man Lymphocytes # (Manual) PT INR APTT Fibrinogen D-Dimer Heparin Anti-Xa Level ABG pH POC ABG pCO2 POC ABG pO2 ABG Hemoglobin ABG Oxyhemoglobin ABG Sodium ABG Potassium ABG Chloride ABG Glucose Carboxyhemoglobin Sodium Potassium Chloride Carbon Dioxide BUN Creatinine Glucose POC Glucose 251 H 229 H Hemoglobin A1c Lactic Acid Calcium Phosphorus Magnesium Ferritin AST Alkaline Phosphatase Lactate Dehydrogenase Total Creatine Kinase CK-MB (CK-2) CK-MB (CK-2) Rel Index Troponin T C-Reactive Protein NT-Pro-B Natriuret Pep Total Protein Albumin Triglycerides LDL Cholesterol Direct HDL Cholesterol Arterial Blood Glucose Arterial Blood Ionized Calcium Coronavirus (PCR) Crossmatch 12/12/20 12/12/20 12/12/20 04:00 04:44 06:04 WBC 22.1 H RBC 3.21 L Hgb 8.4 L Hct 26.8 L MCV MCH 26 L RDW 19.5 H Plt Count 106 L Lymph % (Auto) Lymph # (Auto) Seg Neutrophils % Seg Neuts % (Manual) Lymphocytes % (Manual) Nucleated RBC % Seg Neutrophils # Man Lymphocytes # (Manual) PT INR APTT Fibrinogen D-Dimer Heparin Anti-Xa Level ABG pH POC ABG pCO2 POC ABG pO2 79.5 L ABG Hemoglobin 8.8 L ABG Oxyhemoglobin 93.5 L ABG Sodium ABG Potassium ABG Chloride 114.0 H ABG Glucose 257 H Carboxyhemoglobin Sodium Potassium Chloride Carbon Dioxide BUN Creatinine Glucose POC Glucose 232 H Hemoglobin A1c Lactic Acid Calcium Phosphorus Magnesium Ferritin AST Alkaline Phosphatase Lactate Dehydrogenase Total Creatine Kinase CK-MB (CK-2) CK-MB (CK-2) Rel Index Troponin T C-Reactive Protein NT-Pro-B Natriuret Pep Total Protein Albumin Triglycerides LDL Cholesterol Direct HDL Cholesterol Arterial Blood Glucose 257 H Arterial Blood Ionized Calcium Coronavirus (PCR) Crossmatch 12/12/20 12/12/20 12/12/20 06:04 06:04 08:10 WBC RBC Hgb Hct MCV MCH RDW Plt Count Lymph % (Auto) Lymph # (Auto) Seg Neutrophils % Seg Neuts % (Manual) Lymphocytes % (Manual) Nucleated RBC % Seg Neutrophils # Man Lymphocytes # (Manual) PT INR APTT Fibrinogen 100 L* D-Dimer > 28232 H Heparin Anti-Xa Level ABG pH POC ABG pCO2 POC ABG pO2 ABG Hemoglobin ABG Oxyhemoglobin ABG Sodium ABG Potassium ABG Chloride ABG Glucose Carboxyhemoglobin Sodium 146 H D Potassium Chloride 116.0 H Carbon Dioxide 20 L BUN 40 H Creatinine Glucose 234 H POC Glucose Hemoglobin A1c Lactic Acid Calcium 7.5 L Phosphorus Magnesium 3.10 H Ferritin 240.7 H AST Alkaline Phosphatase Lactate Dehydrogenase 1274 H Total Creatine Kinase CK-MB (CK-2) CK-MB (CK-2) Rel Index Troponin T C-Reactive Protein 2.80 H NT-Pro-B Natriuret Pep Total Protein Albumin Triglycerides LDL Cholesterol Direct HDL Cholesterol Arterial Blood Glucose Arterial Blood Ionized Calcium Coronavirus (PCR) Crossmatch 12/12/20 12/12/20 08:10 11:49 WBC RBC Hgb 8.2 L Hct 25.9 L MCV MCH RDW Plt Count Lymph % (Auto) Lymph # (Auto) Seg Neutrophils % Seg Neuts % (Manual) Lymphocytes % (Manual) Nucleated RBC % Seg Neutrophils # Man Lymphocytes # (Manual) PT INR APTT Fibrinogen D-Dimer Heparin Anti-Xa Level ABG pH POC ABG pCO2 POC ABG pO2 ABG Hemoglobin ABG Oxyhemoglobin ABG Sodium ABG Potassium ABG Chloride ABG Glucose Carboxyhemoglobin Sodium Potassium Chloride Carbon Dioxide BUN Creatinine Glucose POC Glucose 215 H Hemoglobin A1c Lactic Acid Calcium Phosphorus Magnesium Ferritin AST Alkaline Phosphatase Lactate Dehydrogenase Total Creatine Kinase CK-MB (CK-2) CK-MB (CK-2) Rel Index Troponin T C-Reactive Protein NT-Pro-B Natriuret Pep Total Protein Albumin Triglycerides LDL Cholesterol Direct HDL Cholesterol Arterial Blood Glucose Arterial Blood Ionized Calcium Coronavirus (PCR) Crossmatch Chest x-ray: image reviewed (no barotrauma; no new infiltrates) Allied health notes reviewed: nursing
--- NOTE | 2020-12-12 14:24 | Progress Note ---
<RAFFYMACKENZIE NancyDesire - Last Filed: 12/12/20 14:31> Assessment and Plan Assessment and plan: This is a 65 year old female with HTN, DM, GI bleed in 2016 admitted with COVID 19 pna, sepsis, acute hypoxic respiratory failure and ACS NEURO: -Patient opens eyes and moves lower extremities spontaneously -Patient is sedated on propofol, fentanyl -RASS goal 0 to -1 -Avoid delirium -SAT trials when appropriate CV: TX, h/o HTN -Cardiology consulted, appreciate recommendations -Per cardiology patient will be medically treated -Echocardiogram shows LVEF 65 to 70%, mild LVH-> see report for details -Aspirin, Lipitor, Plavix -Blood pressure monitor per protocol RESP: Acute hypoxic respiratory failure -No Baseline home oxygen requirements -Patient was intubated 12/08 -Wean mechanical ventilation as tolerated -VAP bundle -Daily CXR and ABGs -12/11 vent settings: Assist control tidal volume 500, rate of 30, PEEP of 14, 90% FiO2 -12/11 ABG and CXR reviewed She is in her room GI: TF, GIB -nutrition consult -TF held d/t bleeding noted at mouth/nose/ guiac positive -GI consulted, patient recommendations (signed off 12/12) -IV PPI -Bowel regimen: [place] -24 hour +976 ml : Urinary retention, metabolic acidosis, hypernatremia -Carpenter placed urinary retention, strict intake and output -Strict intake and output -Avoid nephrotoxic medication -Trend creatinine Heme: Anemia, brachial vein DVT, GIB, thrombocytopenia, -Guaiac positive stool, remote history of GI bleed (2016) -GI/vascular surgery consulted, appreciate recommendations -Trend H&H -Hemoglobin on admission 8.9 -s/p 1 unit PRBC -Transfuse as needed for hgb<7 -Patient was on heparin drip was discontinued due to GI bleed -SCDs to bilateral lower extremities while in bed -Per vascular surgery- When the patient is able to tolerate anticoagulation would recommend restarting a low-dose heparin drip to prevent propagation of the DVT. -new findings: Left radial pulse not able to palpated or heard on dopplar; Right radial pulse is papable and dopplarable ID: COVID-19 pneumonia, leukocytosis -Admits to known exposure -Presented at outside facility ([facility]) with Covid symptom complaints, CT angio chest bilateral ground glass opacities but no PE, consistent with Covid -COVID-19 PCR positive -Zinc/vitamin D/vitamin C -Steroids x5 days -S/p remdesivir x5 days, s/p Actemra -Per ID: Continue cefepime and vancomycin for 5 days (12/08 through 12/13) -Contact/droplet precautions -ID consulted, appreciate recommendations -Anticoagulation per protocol as tolerated ENDO: DM2 -Uncontrolled, with hyperglycemia -Blood glucose every 6 -Schedule Lantus and SSI coverage prn -HgbA1C 9.5 -Avoid hypoglycemia The high probability of a clinically significant, sudden or life threatening deterioration of the [pulmonary] system(s) required my full and direct attenti on, intervention and personal management. The aggregate critical care time was [60] minutes. This time is in addition to time spent performing reported procedures but includes the following: [x] Data Review and interpretation [x] Patient assessment and monitoring of vital signs [x] Documentation [x] Medication orders and management Disposition Plan: icu Total Time Spent with Patient (Minutes): 60 History Interval history: 65-year-old -[place]er female with history of hypertension, diabetes, and GI bleed who presents [facility] ED with complaints of shortness of breath, loss of taste and smell, malaise, fatigue and weakness. Of note this is a [facility] patient and [facility] has agreed to the admission. Patient presented to her local [facility] clinic yesterday evening with complaints of Covid symptoms x6 days. CT angio chest done at [facility] revealed extensive irregular bilateral groundglass opacities, and patient was referred to ED for further evaluation and treatment. Admits to known exposure, states that her friend whom she was in close contact with for several days recently tested positive for Covid. Endorses mild generalized headache, chest tightening, diarrhea, body aches, loss of smell and taste, and shortness of breath. 12/03: COVID-19 test is positive patient is high flow in progress 40liters/100%, will obtain pulmonary consultation. Will adjust glargine for better insulin coverage. Continue remdesivir and Solu-Medrol. Will monitor progression. Encourage prone positioning. We will give a dose of Lasix today. Would like to go to full dose anticoagulation but patient's anemia is precluding And also patient with noted positive stool and remote history of GI bleed in 2016 if no worsening renal function with the Lasix given today will consider CTA in the morning if patient is not improving 12/04: Patient seen and examined, considering worsening hypoxia and stable renal function will order CTA to rule out pulmonary embolism. Will give one-time full dose anticoagulation and continue the prophylactic dose as being careful due to history of GI bleed. And noted anemia. I discussed with the lens coating technician patient will transfer to [facility]. For now continue steroid therapy will give additional dose of Lasix today. Blood sugar is better controlled. Continue steroids and remdesivir. Patient also Getting Actmera also. Patient was able to prone today. 12/05: Patient s/p Actemra. Continue supportive care she is prone. She continues on steroids and remdesivir. We will give additional Lasix today and monitor renal function in a.m. She remains on high flow and nonrebreather mask/sign of the severity of her hypoxia 12/07: Patient remains on High flow, desaturating despite being on 100% highflow and NRBM, encourage to go back on BiPAP, she protested but now willing with improvement back to 89%. Patient is now on heparin drip, will obtain Chest xray. prongnosis -guarded 12/08: Patient still with hypoxic respiratory failure, worsening symptoms, EKG done concerning for inferior wall TX, STAT Troponin still pending. Discussed with the pulmonary doctor and also with the powder cutting operator. Patient due to worsening symptoms is unable to go to the cathlab as she is not stable due to significant hypoxic. The patient again denies any chest pain, BUT WONDER IF this is secondary to the ongoing Heparin drip. Will start on full dose Plavix, Low dose ASA, BB if tolerating. Transfer to the ICU. Patient is s.p Remdesivir and Actmera continue Steroids and Heparin drip. Plan discussed with the patient in detail Noted with Hypoglycemia, will adjust insulin Need to monitor Nutritional status Very guarded prognosis 12/09 no acute events overnight 12/10: LARISA, heparin gtt turned off d/t bleeding 12/11: Patient is anemic today and required transfusion of PRBC x1 which was ordered. Vascular surgery was consulted for evaluation of right radial artery. Patient's heparin drip was discontinued due to mouth/nose. venous US ordered and PT/INR/CBC and fibrinogen were ordered 12/12: brachial vein DVT shown on US. Pt now has no dopplarable or papable pulse on right wrist (brachial heard on Doppler). Vascular surgery is aware. Hospitalist Physical - Constitutional Vitals: Temp Pulse Resp BP Pulse Ox 100 F H 96 H 24 138/73 100 12/12/20 08:00 12/12/20 11:01 12/12/20 11:01 12/12/20 11:01 12/12/20 11:01 General appearance: Present: no acute distress, other (Intubated) HEART Score - HEART Score Troponin: Troponin T 0.487 ng/mL (0.00-0.029) H* D 12/09/20 13:08 Results - Labs CBC & Chem 7: 12/12/20 08:10 12/12/20 06:04 Labs: Laboratory Last Values WBC 22.1 K/mm3 (4.5-11.0) H 12/12/20 06:04 RBC 3.21 M/mm3 (3.65-5.03) L 12/12/20 06:04 Hgb 8.2 gm/dl (10.1-14.3) L 12/12/20 08:10 Hct 25.9 % (30.3-42.9) L 12/12/20 08:10 MCV 84 fl (79-97) 12/12/20 06:04 MCH 26 pg (28-32) L 12/12/20 06:04 MCHC 31 % (30-34) 12/12/20 06:04 RDW 19.5 % (13.2-15.2) H 12/12/20 06:04 Plt Count 106 K/mm3 (140-440) L 12/12/20 06:04 Lymph % (Auto) 6.7 % (13.4-35.0) L 12/02/20 03:58 [place] % (Auto) 5.4 % (0.0-7.3) 12/02/20 03:58 Eos % (Auto) 0.0 % (0.0-4.3) 12/02/20 03:58 Baso % (Auto) 0.2 % (0.0-1.8) 12/02/20 03:58 Lymph # (Auto) 0.3 K/mm3 (1.2-5.4) L 12/02/20 03:58 [place] # (Auto) 0.3 K/mm3 (0.0-0.8) 12/02/20 03:58 Eos # (Auto) 0.0 K/mm3 (0.0-0.4) 12/02/20 03:58 Baso # (Auto) 0.0 K/mm3 (0.0-0.1) 12/02/20 03:58 Add Manual Diff Complete 12/10/20 02:39 Total Counted 100 12/10/20 02:39 Seg Neutrophils % Wealth Management Consultant 12/10/20 02:39 Seg Neuts % (Manual) 95.0 % (40.0-70.0) H 12/10/20 02:39 Band Neutrophils % 2.0 % 12/10/20 02:39 Lymphocytes % (Manual) 1.0 % (13.4-35.0) L 12/10/20 02:39 Monocytes % (Manual) 2.0 % (0.0-7.3) 12/10/20 02:39 Eosinophils % (Manual) 1.0 % (0.0-4.3) 12/08/20 20:15 Nucleated RBC % 3.0 % (0.0-0.9) H 12/10/20 02:39 Seg Neutrophils # 4.4 K/mm3 (1.8-7.7) 12/02/20 03:58 Seg Neutrophils # Man 18.2 K/mm3 (1.8-7.7) H 12/10/20 02:39 Band Neutrophils # 0.4 K/mm3 12/10/20 02:39 Lymphocytes # (Manual) 0.2 K/mm3 (1.2-5.4) L 12/10/20 02:39 Abs React Lymphs (Man) 0.0 K/mm3 12/10/20 02:39 Monocytes # (Manual) 0.4 K/mm3 (0.0-0.8) 12/10/20 02:39 Eosinophils # (Manual) 0.0 K/mm3 (0.0-0.4) 12/10/20 02:39 Basophils # (Manual) 0.0 K/mm3 (0.0-0.1) 12/10/20 02:39 Metamyelocytes # 0.0 K/mm3 12/10/20 02:39 Myelocytes # 0.0 K/mm3 12/10/20 02:39 Promyelocytes # 0.0 K/mm3 12/10/20 02:39 Blast Cells # 0.0 K/mm3 12/10/20 02:39 WBC Morphology Not Reportable 12/10/20 02:39 Hypersegmented Neuts Not Reportable 12/10/20 02:39 Hyposegmented Neuts Not Reportable 12/10/20 02:39 Hypogranular Neuts Not Reportable 12/10/20 02:39 Smudge Cells Not Reportable 12/10/20 02:39 Toxic Granulation Not Reportable 12/10/20 02:39 Toxic Vacuolation Not Reportable 12/10/20 02:39 Dohle Bodies Not Reportable 12/10/20 02:39 Pelger-Huet Anomaly Not Reportable 12/10/20 02:39 Minna Rods Not Reportable 12/10/20 02:39 Platelet Estimate Consistent w auto 12/10/20 02:39 Clumped Platelets Not Reportable 12/10/20 02:39 Plt Clumps, EDTA Not Reportable 12/10/20 02:39 Large Platelets Few 12/10/20 02:39 Giant Platelets Not Reportable 12/10/20 02:39 Platelet Satelliting Not Reportable 12/10/20 02:39 Plt Morphology Comment Not Reportable 12/10/20 02:39 RBC Morphology Not Reportable 12/10/20 02:39 Dimorphic RBCs Not Reportable 12/10/20 02:39 Polychromasia Few 12/10/20 02:39 Hypochromasia 1+ 12/10/20 02:39 Poikilocytosis Not Reportable 12/10/20 02:39 Anisocytosis 1+ 12/10/20 02:39 Microcytosis Few 12/10/20 02:39 Macrocytosis Not Reportable 12/10/20 02:39 Spherocytes Not Reportable 12/10/20 02:39 Pappenheimer Bodies Not Reportable 12/10/20 02:39 Sickle Cells Not Reportable 12/10/20 02:39 Target Cells Not Reportable 12/10/20 02:39 Tear Drop Cells Few 12/10/20 02:39 Ovalocytes Not Reportable 12/10/20 02:39 Helmet Cells Not Reportable 12/10/20 02:39 [place] Bodies Not Reportable 12/10/20 02:39 [place] Rings Not Reportable 12/10/20 02:39 [place] Cells Not Reportable 12/10/20 02:39 Bite Cells Not Reportable 12/10/20 02:39 Crenated Cell Not Reportable 12/10/20 02:39 Elliptocytes Not Reportable 12/10/20 02:39 Acanthocytes (Spur) Not Reportable 12/10/20 02:39 Rouleaux Not Reportable 12/10/20 02:39 Hemoglobin C Crystals Not Reportable 12/10/20 02:39 Schistocytes Not Reportable 12/10/20 02:39 Malaria parasites Not Reportable 12/10/20 02:39 Po Bodies Not Reportable 12/10/20 02:39 Hem Pathologist Commnt No 12/10/20 02:39 PT 17.3 Sec. (12.2-14.9) H 12/11/20 15:45 INR 1.35 (0.87-1.13) H 12/11/20 15:45 APTT 29.2 Sec. (24.2-36.6) 12/11/20 15:45 Fibrinogen 100 mg/dl (211-480) L* 12/12/20 08:10 D-Dimer > 16662 ng/mlDDU (0-234) H 12/12/20 08:10 Heparin Anti-Xa Level < 0.10 U.I./ml (0.3-0.7) L 12/11/20 15:45 ABG pH 7.380 (7.320-7.450) 12/12/20 04:00 POC ABG pCO2 41.5 mmHg (32.0-48.0) 12/12/20 04:00 POC ABG pO2 79.5 mmHg (83-108) L 12/12/20 04:00 POC ABG HCO3 24.0 12/12/20 04:00 ABG O2 Saturation 94.7 (0-100) 12/12/20 04:00 POC ABG Base Excess -1.1 12/12/20 04:00 ABG Hemoglobin 8.8 (12.0-17.5) L 12/12/20 04:00 ABG Oxyhemoglobin 93.5 (94-98) L 12/12/20 04:00 ABG Methemoglobin 0.3 (0.0-1.5) 12/12/20 04:00 ABG Sodium 140.9 mmol/L (136.0-145.0) 12/12/20 04:00 ABG Potassium 4.4 mmol/L (3.40-4.50) 12/12/20 04:00 ABG Chloride 114.0 mmol/L (98-107) H 12/12/20 04:00 ABG Glucose 257 mg/dL (65-95) H 12/12/20 04:00 Carboxyhemoglobin 1.0 (0.5-1.5) 12/12/20 04:00 FiO2 % 70.0 12/12/20 04:00 Sodium 146 mmol/L (137-145) H D 12/12/20 06:04 Potassium 4.3 mmol/L (3.6-5.0) 12/12/20 06:04 Chloride 116.0 mmol/L (98-107) H 12/12/20 06:04 Carbon Dioxide 20 mmol/L (22-30) L 12/12/20 06:04 Anion Gap 14 mmol/L 12/12/20 06:04 BUN 40 mg/dL (7-17) H 12/12/20 06:04 Creatinine 1.0 mg/dL (0.6-1.2) 12/12/20 06:04 Estimated GFR > 60 ml/min 12/12/20 06:04 BUN/Creatinine Ratio 40 % 12/12/20 06:04 Glucose 234 mg/dL (65-100) H 12/12/20 06:04 POC Glucose 215 mg/dL (70-105) H 12/12/20 11:49 Hemoglobin A1c 9.5 % (4-6) H 12/02/20 06:15 Lactic Acid 2.50 mmol/L (0.7-2.0) H* 12/09/20 13:08 Calcium 7.5 mg/dL (8.4-10.2) L 12/12/20 06:04 Phosphorus 3.00 mg/dL (2.5-4.5) D 12/12/20 06:04 Magnesium 3.10 mg/dL (1.7-2.3) H 12/12/20 06:04 Ferritin 240.7 ng/mL (10.0-200.0) H 12/12/20 06:04 Total Bilirubin 0.40 mg/dL (0.1-1.2) 12/11/20 04:29 AST 78 units/L (5-40) H 12/11/20 04:29 ALT 26 units/L (7-56) 12/11/20 04:29 Alkaline Phosphatase 141 units/L (35-129) H 12/11/20 04:29 Lactate Dehydrogenase 1274 units/L (91-180) H 12/12/20 06:04 Total Creatine Kinase 521 units/L (30-135) H 12/08/20 20:15 CK-MB (CK-2) 31.5 ng/mL (0.0-4.0) H 12/08/20 20:15 CK-MB (CK-2) Rel Index 6.0 (0-4) H 12/08/20 20:15 Troponin T 0.487 ng/mL (0.00-0.029) H* D 12/09/20 13:08 C-Reactive Protein 2.80 mg/dL (0.00-1.30) H 12/12/20 06:04 NT-Pro-B Natriuret Pep 2396 pg/mL (0-900) H 12/09/20 13:08 Total Protein 4.4 g/dL (6.3-8.2) L 12/11/20 04:29 Albumin 2.2 g/dL (3.9-5) L 12/11/20 04:29 Albumin/Globulin Ratio 1.0 % 12/11/20 04:29 Triglycerides 366 mg/dL (2-149) H 12/11/20 04:29 Cholesterol 88 mg/dL (50-199) 12/08/20 13:25 LDL Cholesterol Direct 30 mg/dL (50-130) L 12/08/20 13:25 HDL Cholesterol 35 mg/dL (40-59) L 12/08/20 13:25 Cholesterol/HDL Ratio 2.51 % 12/08/20 13:25 Procalcitonin 1.18 ng/mL (<0.15) 12/02/20 03:58 Arterial Blood Glucose 257 mg/dL (65-95) H 12/12/20 04:00 Arterial Blood Ionized Calcium 4.7 mg/dL (4.6-5.3) 12/12/20 04:00 Coronavirus (PCR) Positive (Negative) A 12/02/20 08:15 Blood Type O POSITIVE 12/10/20 04:10 Antibody Screen Negative 12/10/20 04:10 Crossmatch See Detail 12/10/20 04:10 Microbiology: Microbiology 12/11/20 16:39 Tracheal Aspirate Sputum Culture - Preliminary Carpenter/IV: Voiding Method External Female Catheter Active Medications - Current Medications Current Medications: Generic Name Dose Route Start Last Admin Trade Name Freq PRN Reason Stop Dose Admin Acetaminophen 650 mg 12/02/20 05:09 12/06/20 21:12 Acetaminophen 325 Mg Tab PO 650 mg Q4H PRN Administration Pain MILD(1-3)/Fever >100.5/LARA Albuterol 2.5 mg 12/02/20 05:09 Albuterol 2.5 Mg/3 Ml Nebu IH Q3HRT PRN Shortness Of Breath Lipase/Protease/Amylase 1 each 12/09/20 10:32 Lipase 10,500/Protease 25,000/Amylase 43,750 (Units) Dr Fong FEEDTUBE PRN PRN For Clogged Feeding Tube Ascorbic Acid 500 mg 12/03/20 22:00 12/12/20 09:38 Ascorbic Acid 500 Mg Tab PO 500 mg BID AZAEL Administration Aspirin 81 mg 12/08/20 13:00 12/12/20 09:38 Aspirin 81 Mg Tab Chew PO 81 mg QDAY AZAEL Administration Atorvastatin Calcium 40 mg 12/08/20 22:00 12/11/20 21:24 Atorvastatin 40 Mg Tab PO 40 mg QHS AZAEL Administration Cholecalciferol 5,000 unit 12/02/20 10:00 12/12/20 09:38 Cholecalciferol (Vit D3) 5,000 Unit Tab PO 5,000 unit DAILY AZAEL Administration Clopidogrel Bisulfate 75 mg 12/09/20 10:00 12/12/20 09:38 Clopidogrel 75 Mg Tab PO 75 mg QDAY AZAEL Administration Dextrose 50 ml 12/02/20 05:09 12/05/20 08:09 Dextrose 50% In Water (25gm) 50 Ml Syringe IV 50 ml Q30MIN PRN Administration Hypoglycemia Protocol Docusate Sodium 100 mg 12/02/20 10:00 12/12/20 09:38 Docusate Sodium 100 Mg Cap PO 100 mg BID AZAEL Administration Fentanyl 50 mcg 12/08/20 15:13 Fentanyl 100 Mcg/2 Ml Inj IV Q10MIN PRN ANALGESIA Hydrophilic Ointment 1 applic 12/08/20 15:56 Lip Therapy Vaseline TP Q2HR PRN Dry Lips Fentanyl Citrate 2,000 mcg in 100 mls @ 3.243 mls/hr 12/08/20 16:00 12/12/20 13:46 Fentanyl Drip Premix IV 4 mcg/kg/hr TITR AZAEL 12.973 mls/hr Administration Protocol 1 MCG/KG/HR NORepinephrine/NS 8 MG-250 ML 8 mg in 250 mls @ 3.75 mls/hr 12/08/20 16:00 12/12/20 11:07 Norepinephrine/Ns 8 Mg-250 Ml (Double Conc) IV 6 mcg/min TITRATE AZAEL 11.25 mls/hr Administration Protocol 2 MCG/MIN Propofol 1,000 mg in 100 mls @ 1.946 mls/hr 12/08/20 17:00 12/12/20 11:07 Diprivan 10 Mg/Ml IV 20 mcg/kg/min TITR AZAEL 7.784 mls/hr Administration Protocol 5 MCG/KG/MIN Sodium Chloride 500 mls @ 1 mls/hr 12/08/20 17:19 Nacl 0.9% 500 Ml IV DIRECT PRN ARTERIAL LINE FLUSH Cefepime HCl 2 gm in 100 mls @ 200 mls/hr 12/09/20 14:00 12/12/20 02:50 Cefepime/Ns 2 Gm/100 Ml IV 12/14/20 02:29 200 mls/hr Q12H AZAEL Administration Protocol Vancomycin HCl 1 gm in 250 mls @ 167.007 mls/hr 12/10/20 14:00 12/11/20 14:15 Vancomycin/Ns 1 Gm/250 Ml IV 12/13/20 15:30 167.007 mls/hr Q24H AZAEL Administration Vasopressin 20 unit/ Sodium 101 mls @ 9.09 mls/hr 12/10/20 04:00 12/12/20 00:15 Chloride IV 0.03 units/min TITR AZAEL 9.09 mls/hr Administration Protocol 0.03 UNITS/MIN Pantoprazole Sodium 80 mg/ 100 mls @ 10 mls/hr 12/10/20 17:00 12/12/20 00:30 Sodium Chloride IV 8 mg/hr DIRECT AZAEL 10 mls/hr Administration 8 MG/HR Insulin Glargine 15 units 12/12/20 22:00 Insulin Glargine 100 Units/Ml SUB-Q QHS COUNT INCLUDES THE [facility] Insulin Human Lispro 0 unit 12/09/20 12:00 12/12/20 13:46 Insulin Lispro 100 Unit/Ml SUB-Q 6 unit Q6HR AZAEL Administration Protocol Metoclopramide HCl 5 mg 12/11/20 12:00 12/12/20 05:18 Metoclopramide 10 Mg/2 Ml Inj IV 5 mg Q6H AZAEL Administration Multi-Ingred Cream/Lotion/Oil/Oint 1 applic 12/08/20 15:56 Mineral Oil/Petrolatum, White Ophth Oint 3.5 Gm OU Q4HR PRN Dry Eye(s) Naloxone HCl 0.1 mg 12/02/20 05:09 Naloxone 0.4 Mg/1 Ml Inj IV Q2MIN PRN Res Rate </= 8 or 02 SAT < 92% Nitroglycerin 1 inch 12/08/20 14:00 12/12/20 09:38 Nitroglycerin 2% Oint 1 Gm TP 1 inch QIDNTG COUNT INCLUDES THE [facility] Administration Protocol Ondansetron HCl 4 mg 12/02/20 05:09 Ondansetron 4 Mg/2 Ml Inj IV Q6H PRN Nausea And Vomiting Senna/Docusate Sodium 1 tab 12/08/20 22:00 12/12/20 09:36 Sennosides/Docusate Sodium 8.6/50 Mg Tab FEEDTUBE 1 tab BID AZAEL Administration Simple Syrup 30 ml 12/09/20 10:32 Simple Syrup 15 Ml FEEDTUBE PRN PRN Hypoglycemia Sodium Bicarbonate 325 mg 12/09/20 10:32 Sodium Bicarbonate 325 Mg Tab FEEDTUBE PRN PRN For Clogged Feeding Tube Sodium Chloride 10 ml 12/02/20 10:00 12/12/20 09:39 Sodium Chloride 0.9% 10 Ml Flush Syringe IV 10 ml BID AZAEL Administration Sodium Chloride 10 ml 12/02/20 05:09 Sodium Chloride 0.9% 10 Ml Flush Syringe IV PRN PRN LINE FLUSH Zinc Sulfate 220 mg 12/02/20 10:00 12/12/20 09:37 Zinc Sulfate 220 Mg Cap PO 220 mg QDAY AZAEL Administration Nutrition/Malnutrition Assess - Dietary Evaluation Nutrition/Malnutrition Findings: Nutrition Notes Start: 08/19/21 10:33 Freq: Status: Active Protocol: Document 12/11/20 09:31 (Rec: 12/11/20 09:34 [email or web address]) Nutrition Notes Initial or Follow up Brief Note Current Diagnosis Respiratory Failure Other Pertinent Diagnosis Covid +, Hyperglycemia Current Diet Vital AF at 45 ml/hr Subjective/Other Information TF off due to pt bleeding large amount from nose and mouth with possible hematemesis yesterday. Per MD on chest xray, TF needs to be advanced further into the dudenum. Nutrition Intervention Follow-Up By: 12/14/20 Additional Comments F/u: TF restart and tolerance <JEREMY INMAN - Last Filed: 12/13/20 13:13> History Interval history: I saw and evaluated the patient. Discussed with the nurse practitioner and agree with their findings and plan as documented in this note. Hospitalist Physical - Constitutional Vitals: Temp Pulse Resp BP Pulse Ox 99.1 F 111 H 22 109/68 93 12/13/20 08:00 12/13/20 12:00 12/13/20 12:00 12/13/20 12:00 12/13/20 12:00 HEART Score - HEART Score Troponin: Troponin T 0.487 ng/mL (0.00-0.029) H* D 12/09/20 13:08 Results - Labs CBC & Chem 7: 12/13/20 06:55 12/13/20 06:55 Labs: Laboratory Last Values WBC 23.0 K/mm3 (4.5-11.0) H 12/13/20 06:55 RBC 2.74 M/mm3 (3.65-5.03) L 12/13/20 06:55 Hgb 7.1 gm/dl (10.1-14.3) L 12/13/20 06:55 Hct 22.6 % (30.3-42.9) L 12/13/20 06:55 MCV 83 fl (79-97) 12/13/20 06:55 MCH 26 pg (28-32) L 12/13/20 06:55 MCHC 31 % (30-34) 12/13/20 06:55 RDW 20.3 % (13.2-15.2) H 12/13/20 06:55 Plt Count 80 K/mm3 (140-440) L 12/13/20 06:55 Lymph % (Auto) 6.7 % (13.4-35.0) L 12/02/20 03:58 [place] % (Auto) 5.4 % (0.0-7.3) 12/02/20 03:58 Eos % (Auto) 0.0 % (0.0-4.3) 12/02/20 03:58 Baso % (Auto) 0.2 % (0.0-1.8) 12/02/20 03:58 Lymph # (Auto) 0.3 K/mm3 (1.2-5.4) L 12/02/20 03:58 [place] # (Auto) 0.3 K/mm3 (0.0-0.8) 12/02/20 03:58 Eos # (Auto) 0.0 K/mm3 (0.0-0.4) 12/02/20 03:58 Baso # (Auto) 0.0 K/mm3 (0.0-0.1) 12/02/20 03:58 Add Manual Diff Complete 12/10/20 02:39 Total Counted 100 12/10/20 02:39 Seg Neutrophils % Wealth Management Consultant 12/10/20 02:39 Seg Neuts % (Manual) 95.0 % (40.0-70.0) H 12/10/20 02:39 Band Neutrophils % 2.0 % 12/10/20 02:39 Lymphocytes % (Manual) 1.0 % (13.4-35.0) L 12/10/20 02:39 Monocytes % (Manual) 2.0 % (0.0-7.3) 12/10/20 02:39 Eosinophils % (Manual) 1.0 % (0.0-4.3) 12/08/20 20:15 Nucleated RBC % 3.0 % (0.0-0.9) H 12/10/20 02:39 Seg Neutrophils # 4.4 K/mm3 (1.8-7.7) 12/02/20 03:58 Seg Neutrophils # Man 18.2 K/mm3 (1.8-7.7) H 12/10/20 02:39 Band Neutrophils # 0.4 K/mm3 12/10/20 02:39 Lymphocytes # (Manual) 0.2 K/mm3 (1.2-5.4) L 12/10/20 02:39 Abs React Lymphs (Man) 0.0 K/mm3 12/10/20 02:39 Monocytes # (Manual) 0.4 K/mm3 (0.0-0.8) 12/10/20 02:39 Eosinophils # (Manual) 0.0 K/mm3 (0.0-0.4) 12/10/20 02:39 Basophils # (Manual) 0.0 K/mm3 (0.0-0.1) 12/10/20 02:39 Metamyelocytes # 0.0 K/mm3 12/10/20 02:39 Myelocytes # 0.0 K/mm3 12/10/20 02:39 Promyelocytes # 0.0 K/mm3 12/10/20 02:39 Blast Cells # 0.0 K/mm3 12/10/20 02:39 WBC Morphology Not Reportable 12/10/20 02:39 Hypersegmented Neuts Not Reportable 12/10/20 02:39 Hyposegmented Neuts Not Reportable 12/10/20 02:39 Hypogranular Neuts Not Reportable 12/10/20 02:39 Smudge Cells Not Reportable 12/10/20 02:39 Toxic Granulation Not Reportable 12/10/20 02:39 Toxic Vacuolation Not Reportable 12/10/20 02:39 Dohle Bodies Not Reportable 12/10/20 02:39 Pelger-Huet Anomaly Not Reportable 12/10/20 02:39 [place] Rods Not Reportable 12/10/20 02:39 Platelet Estimate Consistent w auto 12/10/20 02:39 Clumped Platelets Not Reportable 12/10/20 02:39 Plt Clumps, EDTA Not Reportable 12/10/20 02:39 Large Platelets Few 12/10/20 02:39 Giant Platelets Not Reportable 12/10/20 02:39 Platelet Satelliting Not Reportable 12/10/20 02:39 Plt Morphology Comment Not Reportable 12/10/20 02:39 RBC Morphology Not Reportable 12/10/20 02:39 Dimorphic RBCs Not Reportable 12/10/20 02:39 Polychromasia Few 12/10/20 02:39 Hypochromasia 1+ 12/10/20 02:39 Poikilocytosis Not Reportable 12/10/20 02:39 Anisocytosis 1+ 12/10/20 02:39 Microcytosis Few 12/10/20 02:39 Macrocytosis Not Reportable 12/10/20 02:39 Spherocytes Not Reportable 12/10/20 02:39 Pappenheimer Bodies Not Reportable 12/10/20 02:39 Sickle Cells Not Reportable 12/10/20 02:39 Target Cells Not Reportable 12/10/20 02:39 Tear Drop Cells Few 12/10/20 02:39 Ovalocytes Not Reportable 12/10/20 02:39 Helmet Cells Not Reportable 12/10/20 02:39 [place] Bodies Not Reportable 12/10/20 02:39 [place] Rings Not Reportable 12/10/20 02:39 [place] Cells Not Reportable 12/10/20 02:39 Bite Cells Not Reportable 12/10/20 02:39 Crenated Cell Not Reportable 12/10/20 02:39 Elliptocytes Not Reportable 12/10/20 02:39 Acanthocytes (Spur) Not Reportable 12/10/20 02:39 Rouleaux Not Reportable 12/10/20 02:39 Hemoglobin C Crystals Not Reportable 12/10/20 02:39 Schistocytes Not Reportable 12/10/20 02:39 [place] parasites Not Reportable 12/10/20 02:39 Po Bodies Not Reportable 12/10/20 02:39 Hem Pathologist Commnt No 12/10/20 02:39 PT 17.3 Sec. (12.2-14.9) H 12/11/20 15:45 INR 1.35 (0.87-1.13) H 12/11/20 15:45 APTT 29.2 Sec. (24.2-36.6) 12/11/20 15:45 Fibrinogen 100 mg/dl (211-480) L* 12/12/20 08:10 D-Dimer > 22266 ng/mlDDU (0-234) H 12/12/20 08:10 Heparin Anti-Xa Level < 0.10 U.I./ml (0.3-0.7) L 12/11/20 15:45 ABG pH 7.361 (7.320-7.450) 12/13/20 04:00 POC ABG pCO2 45.9 mmHg (32.0-48.0) 12/13/20 04:00 POC ABG pO2 56.6 mmHg (83-108) L 12/13/20 04:00 POC ABG HCO3 25.4 12/13/20 04:00 ABG O2 Saturation 87.1 (0-100) 12/13/20 04:00 POC ABG Base Excess -0.1 12/13/20 04:00 ABG Hemoglobin 7.0 (12.0-17.5) L 12/13/20 04:00 ABG Oxyhemoglobin 85.1 (94-98) L 12/13/20 04:00 ABG Methemoglobin 0.3 (0.0-1.5) 12/13/20 04:00 ABG Sodium 142.9 mmol/L (136.0-145.0) 12/13/20 04:00 ABG Potassium 4.5 mmol/L (3.40-4.50) 12/13/20 04:00 ABG Chloride 118.0 mmol/L (98-107) H 12/13/20 04:00 ABG Glucose 231 mg/dL (65-95) H 12/13/20 04:00 Carboxyhemoglobin 2.0 (0.5-1.5) H 12/13/20 04:00 FiO2 % 90.0 12/13/20 04:00 Sodium 149 mmol/L (137-145) H 12/13/20 06:55 Potassium 4.7 mmol/L (3.6-5.0) 12/13/20 06:55 Chloride 115.8 mmol/L (98-107) H 12/13/20 06:55 Carbon Dioxide 24 mmol/L (22-30) 12/13/20 06:55 Anion Gap 14 mmol/L 12/13/20 06:55 BUN 45 mg/dL (7-17) H 12/13/20 06:55 Creatinine 1.1 mg/dL (0.6-1.2) 12/13/20 06:55 Estimated GFR 60 ml/min 12/13/20 06:55 BUN/Creatinine Ratio 41 % 12/13/20 06:55 Glucose 237 mg/dL (65-100) H 12/13/20 06:55 POC Glucose 250 mg/dL (70-105) H 12/13/20 12:19 Hemoglobin A1c 9.5 % (4-6) H 12/02/20 06:15 Lactic Acid 2.50 mmol/L (0.7-2.0) H* 12/09/20 13:08 Calcium 8.4 mg/dL (8.4-10.2) 12/13/20 06:55 Phosphorus 3.00 mg/dL (2.5-4.5) 12/13/20 06:55 Magnesium 3.10 mg/dL (1.7-2.3) H 12/13/20 06:55 Ferritin 240.7 ng/mL (10.0-200.0) H 12/12/20 06:04 Total Bilirubin 0.50 mg/dL (0.1-1.2) 12/13/20 06:55 AST 88 units/L (5-40) H 12/13/20 06:55 ALT 19 units/L (7-56) 12/13/20 06:55 Alkaline Phosphatase 241 units/L (35-129) H 12/13/20 06:55 Lactate Dehydrogenase 1274 units/L (91-180) H 12/12/20 06:04 Total Creatine Kinase 521 units/L (30-135) H 12/08/20 20:15 CK-MB (CK-2) 31.5 ng/mL (0.0-4.0) H 12/08/20 20:15 CK-MB (CK-2) Rel Index 6.0 (0-4) H 12/08/20 20:15 Troponin T 0.487 ng/mL (0.00-0.029) H* D 12/09/20 13:08 C-Reactive Protein 2.80 mg/dL (0.00-1.30) H 12/12/20 06:04 NT-Pro-B Natriuret Pep 2396 pg/mL (0-900) H 12/09/20 13:08 Total Protein 5.1 g/dL (6.3-8.2) L 12/13/20 06:55 Albumin 2.8 g/dL (3.9-5) L 12/13/20 06:55 Albumin/Globulin Ratio 1.2 % 12/13/20 06:55 Triglycerides 366 mg/dL (2-149) H 12/11/20 04:29 Cholesterol 88 mg/dL (50-199) 12/08/20 13:25 LDL Cholesterol Direct 30 mg/dL (50-130) L 12/08/20 13:25 HDL Cholesterol 35 mg/dL (40-59) L 12/08/20 13:25 Cholesterol/HDL Ratio 2.51 % 12/08/20 13:25 Procalcitonin 1.18 ng/mL (<0.15) 12/02/20 03:58 Arterial Blood Glucose 231 mg/dL (65-95) H 12/13/20 04:00 Arterial Blood Ionized Calcium 4.8 mg/dL (4.6-5.3) 12/13/20 04:00 Coronavirus (PCR) Positive (Negative) A 12/02/20 08:15 Blood Type O POSITIVE 12/10/20 04:10 Antibody Screen Negative 12/10/20 04:10 Crossmatch See Detail 12/10/20 04:10 Microbiology: Microbiology 12/11/20 16:39 Tracheal Aspirate Sputum Culture - Final Carpenter/IV: Voiding Method External Female Catheter Active Medications - Current Medications Current Medications: Generic Name Dose Route Start Last Admin Trade Name Freq PRN Reason Stop Dose Admin Acetaminophen 650 mg 12/02/20 05:09 12/12/20 18:19 Acetaminophen 325 Mg Tab PO 650 mg Q4H PRN Administration Pain MILD(1-3)/Fever >100.5/LARA Albuterol 2.5 mg 12/02/20 05:09 Albuterol 2.5 Mg/3 Ml Nebu IH Q3HRT PRN Shortness Of Breath Lipase/Protease/Amylase 1 each 12/09/20 10:32 Lipase 10,500/Protease 25,000/Amylase 43,750 (Units) Dr Fong FEEDTUBE PRN PRN For Clogged Feeding Tube Ascorbic Acid 500 mg 12/03/20 22:00 12/13/20 10:48 Ascorbic Acid 500 Mg Tab PO 500 mg BID AZAEL Administration Aspirin 81 mg 12/08/20 13:00 12/13/20 10:48 Aspirin 81 Mg Tab Chew PO 81 mg QDAY AZAEL Administration Atorvastatin Calcium 40 mg 12/08/20 22:00 12/12/20 22:15 Atorvastatin 40 Mg Tab PO 40 mg QHS AZAEL Administration Cholecalciferol 5,000 unit 12/02/20 10:00 12/13/20 10:48 Cholecalciferol (Vit D3) 5,000 Unit Tab PO 5,000 unit DAILY AZAEL Administration Clopidogrel Bisulfate 75 mg 12/09/20 10:00 12/13/20 10:48 Clopidogrel 75 Mg Tab PO 75 mg QDAY AZAEL Administration Dextrose 50 ml 12/02/20 05:09 12/05/20 08:09 Dextrose 50% In Water (25gm) 50 Ml Syringe IV 50 ml Q30MIN PRN Administration Hypoglycemia Protocol Docusate Sodium 100 mg 12/02/20 10:00 12/13/20 10:49 Docusate Sodium 100 Mg Cap PO 100 mg BID AZAEL Administration Fentanyl 50 mcg 12/08/20 15:13 Fentanyl 100 Mcg/2 Ml Inj IV Q10MIN PRN ANALGESIA Hydrophilic Ointment 1 applic 12/08/20 15:56 Lip Therapy Vaseline TP Q2HR PRN Dry Lips Fentanyl Citrate 2,000 mcg in 100 mls @ 3.243 mls/hr 12/08/20 16:00 12/13/20 06:57 Fentanyl Drip Premix IV 4 mcg/kg/hr TITR AZAEL 12.973 mls/hr Administration Protocol 1 MCG/KG/HR NORepinephrine/NS 8 MG-250 ML 8 mg in 250 mls @ 3.75 mls/hr 12/08/20 16:00 12/13/20 13:08 Norepinephrine/Ns 8 Mg-250 Ml (Double Conc) IV 4 mcg/min TITRATE AZAEL 7.5 mls/hr Administration Protocol 2 MCG/MIN Propofol 1,000 mg in 100 mls @ 1.946 mls/hr 12/08/20 17:00 12/13/20 10:49 Diprivan 10 Mg/Ml IV 25 mcg/kg/min TITR AZAEL 9.73 mls/hr Administration Protocol 5 MCG/KG/MIN Sodium Chloride 500 mls @ 1 mls/hr 12/08/20 17:19 Nacl 0.9% 500 Ml IV DIRECT PRN ARTERIAL LINE FLUSH Cefepime HCl 2 gm in 100 mls @ 200 mls/hr 12/09/20 14:00 12/13/20 02:46 Cefepime/Ns 2 Gm/100 Ml IV 12/14/20 02:29 200 mls/hr Q12H AZAEL Administration Protocol Vancomycin HCl 1 gm in 250 mls @ 167.007 mls/hr 12/10/20 14:00 12/12/20 14:28 Vancomycin/Ns 1 Gm/250 Ml IV 12/13/20 15:30 167.007 mls/hr Q24H AZAEL Administration Vasopressin 20 unit/ Sodium 101 mls @ 9.09 mls/hr 12/10/20 04:00 12/12/20 12:00 Chloride IV Infused TITR COUNT INCLUDES THE [facility] Titration Protocol 0.03 UNITS/MIN Insulin Glargine 20 units 12/13/20 22:00 Insulin Glargine 100 Units/Ml SUB-Q QHS AZAEL Insulin Human Lispro 0 unit 12/09/20 12:00 12/13/20 12:57 Insulin Lispro 100 Unit/Ml SUB-Q 6 unit Q6HR COUNT INCLUDES THE [facility] Administration Protocol Methylprednisolone Sodium Succinate 60 mg 12/13/20 11:00 12/13/20 11:15 Methylprednisolone Sod Succinate 125 Mg/2 Ml Inj IV 12/16/20 10:59 60 mg Q12H COUNT INCLUDES THE [facility] Administration Metoclopramide HCl 5 mg 12/11/20 12:00 12/13/20 12:57 Metoclopramide 10 Mg/2 Ml Inj IV 5 mg Q6H AZAEL Administration Multi-Ingred Cream/Lotion/Oil/Oint 1 applic 12/08/20 15:56 Mineral Oil/Petrolatum, White Ophth Oint 3.5 Gm OU Q4HR PRN Dry Eye(s) Naloxone HCl 0.1 mg 12/02/20 05:09 Naloxone 0.4 Mg/1 Ml Inj IV Q2MIN PRN Res Rate </= 8 or 02 SAT < 92% Nitroglycerin 1 inch 12/08/20 14:00 12/13/20 13:02 Nitroglycerin 2% Oint 1 Gm TP 1 inch QIDNTG COUNT INCLUDES THE [facility] Administration Protocol Ondansetron HCl 4 mg 12/02/20 05:09 Ondansetron 4 Mg/2 Ml Inj IV Q6H PRN Nausea And Vomiting Pantoprazole Sodium 40 mg 12/13/20 10:00 12/13/20 10:49 Pantoprazole 40 Mg Inj IV 40 mg BID AZAEL Administration Senna/Docusate Sodium 1 tab 12/08/20 22:00 12/13/20 10:48 Sennosides/Docusate Sodium 8.6/50 Mg Tab FEEDTUBE 1 tab BID AZAEL Administration Simple Syrup 30 ml 08/25/21 10:32 Simple Syrup 15 Ml FEEDTUBE PRN PRN Hypoglycemia Sodium Bicarbonate 325 mg 12/09/20 10:32 Sodium Bicarbonate 325 Mg Tab FEEDTUBE PRN PRN For Clogged Feeding Tube Sodium Chloride 10 ml 12/02/20 10:00 12/13/20 10:50 Sodium Chloride 0.9% 10 Ml Flush Syringe IV 10 ml BID AZAEL Administration Sodium Chloride 10 ml 12/02/20 05:09 Sodium Chloride 0.9% 10 Ml Flush Syringe IV PRN PRN LINE FLUSH Zinc Sulfate 220 mg 12/02/20 10:00 12/13/20 12:57 Zinc Sulfate 220 Mg Cap PO 220 mg QDAY AZAEL Administration Nutrition/Malnutrition Assess - Dietary Evaluation Nutrition/Malnutrition Findings: Nutrition Notes Start: 12/03/20 10:33 Freq: Status: Active Protocol: Document 12/11/20 09:31 (Rec: 12/11/20 09:34 [id number]) Nutrition Notes Initial or Follow up Brief Note Current Diagnosis Respiratory Failure Other Pertinent Diagnosis Covid +, Hyperglycemia Current Diet Vital AF at 45 ml/hr Subjective/Other Information TF off due to pt bleeding large amount from nose and mouth with possible hematemesis yesterday. Per MD on chest xray, TF needs to be advanced further into the dudenum. Nutrition Intervention Follow-Up By: 12/14/20 Additional Comments F/u: TF restart and tolerance
[2020-12-12] MEDS: VANCOMYCIN/NS 1 GM/250 ML 1 GM/250 ML BAG IV SCH (14:28)
--- NOTE | 2020-12-12 15:41 | Progress Note ---
Assessment and Plan 65-year-old female with COVID pneumonia intubated on pressors with inability to be anticoagulated. Patient has deep tissue injury with inability to palpate the left radial artery. Arterial ultrasound came back normal. Left first and second digit have deep tissue injury and there is ischemia of the third digit. Could be distal emboliz ation to fingers with swelling over access site making it difficult to palpate pulse. Alternatively, artery may have occluded since ultrasound. Unfortunately, patient is actively ill with Covid pneumonia and is on pressors and cannot be anticoagulated. Not candidate for intervention. Once patient can be anticoagulated, recommend anticoagulation. Given decreased platelets, consider HIT panel, but suspect decreased platelets more likely due to underlying Covid sepsis. Recommend weaning pressors as soon as possible, if possible. Once these interventions can be performed, then repeat arterial ultrasound can be obtained. Subjective Date of service: 12/12/20 Principal diagnosis: Ac hypoxemic resp failure; COVID-19 infection; Pneumonia; ARDS; DM II; HTN Interval history: Intubated. On pressors. Cannot be anticoagulated due to bleeding issues. Palpable right radial pulse and right dorsalis pedis pulse with no ischemia of the fingers or toes. Nonpalpable left radial pulse with ischemia of the first and second digit with deep tissue injury and decreased capillary refill, and ischemia of the third digit without deep tissue injury with capillary refill between 2 and 3 seconds. Fourth and fifth digit have normal capillary refill without evidence of ischemia. Left dorsalis pedis is palpable with ischemia of the first through fifth digit without evidence of deep tissue injury. Capillary refill is borderline at 2 to 3 seconds. Objective - Constitutional Vitals: Vital Signs - 12hr 12/12/20 12/12/20 12/12/20 03:45 04:00 04:01 Temperature Pulse Rate 73 71 80 Respiratory 24 24 24 Rate Blood Pressure 115/52 118/58 O2 Sat by Pulse 100 98 100 Oximetry 12/12/20 12/12/20 12/12/20 04:08 04:15 04:30 Temperature Pulse Rate 60 89 86 Respiratory 21 24 Rate Blood Pressure 115/52 124/58 125/68 O2 Sat by Pulse 100 100 100 Oximetry 12/12/20 12/12/20 12/12/20 04:45 05:00 05:15 Temperature Pulse Rate 82 87 85 Respiratory 24 24 24 Rate Blood Pressure 124/58 122/60 131/61 O2 Sat by Pulse 100 100 100 Oximetry 12/12/20 12/12/20 12/12/20 05:18 05:30 05:45 Temperature Pulse Rate 80 86 81 Respiratory 24 24 Rate Blood Pressure 131/61 130/67 120/57 O2 Sat by Pulse 100 100 Oximetry 12/12/20 12/12/20 12/12/20 06:00 06:15 06:30 Temperature Pulse Rate 88 83 91 H Respiratory 24 24 24 Rate Blood Pressure 131/62 131/62 133/71 O2 Sat by Pulse 100 100 96 Oximetry 12/12/20 12/12/20 12/12/20 06:45 07:00 07:15 Temperature Pulse Rate 97 H 94 H 87 Respiratory 23 24 24 Rate Blood Pressure 133/71 115/61 115/61 O2 Sat by Pulse 93 100 97 Oximetry 12/12/20 12/12/20 12/12/20 07:30 07:45 08:00 Temperature 100 F H Pulse Rate 81 85 83 Respiratory 24 24 24 Rate Blood Pressure 107/56 123/64 94/51 O2 Sat by Pulse 100 100 100 Oximetry 12/12/20 12/12/20 12/12/20 08:15 08:30 08:45 Temperature Pulse Rate 76 84 86 Respiratory 23 24 24 Rate Blood Pressure 94/51 100/61 99/63 O2 Sat by Pulse 100 100 100 Oximetry 12/12/20 12/12/20 12/12/20 09:00 09:15 09:30 Temperature Pulse Rate 90 86 96 H Respiratory 24 24 24 Rate Blood Pressure 108/62 99/48 119/71 O2 Sat by Pulse 100 100 100 Oximetry 12/12/20 12/12/20 12/12/20 09:45 10:00 10:15 Temperature Pulse Rate 101 H 98 H 94 H Respiratory 23 24 24 Rate Blood Pressure 128/70 131/74 134/63 O2 Sat by Pulse 100 100 100 Oximetry 12/12/20 12/12/20 12/12/20 10:30 10:45 11:01 Temperature Pulse Rate 89 92 H 96 H Respiratory 24 24 24 Rate Blood Pressure 120/60 120/64 138/73 O2 Sat by Pulse 100 100 100 Oximetry 12/12/20 12/12/20 12/12/20 11:15 11:30 11:45 Temperature Pulse Rate 102 H 117 H 107 H Respiratory 24 22 24 Rate Blood Pressure 136/76 141/77 146/71 O2 Sat by Pulse 100 94 96 Oximetry 12/12/20 12/12/20 12/12/20 12:00 12:15 12:30 Temperature Pulse Rate 109 H 108 H 106 H Respiratory 24 22 22 Rate Blood Pressure 137/68 123/66 139/69 O2 Sat by Pulse 100 95 92 Oximetry 12/12/20 12/12/20 12/12/20 12:45 13:00 13:15 Temperature Pulse Rate 111 H 108 H 108 H Respiratory 22 24 24 Rate Blood Pressure 141/74 145/68 160/75 O2 Sat by Pulse 94 92 92 Oximetry 12/12/20 12/12/20 12/12/20 13:30 13:45 14:00 Temperature Pulse Rate 121 H 113 H 107 H Respiratory 23 24 22 Rate Blood Pressure 168/73 138/73 148/73 O2 Sat by Pulse 96 100 94 Oximetry 12/12/20 12/12/20 12/12/20 14:15 14:30 14:45 Temperature Pulse Rate 107 H 111 H 110 H Respiratory 22 23 24 Rate Blood Pressure 129/64 132/75 130/73 O2 Sat by Pulse 99 98 98 Oximetry 12/12/20 12/12/20 12/12/20 15:01 15:15 15:29 Temperature Pulse Rate 124 H 123 H 123 H Respiratory 24 25 H Rate Blood Pressure 159/86 144/72 144/72 O2 Sat by Pulse 93 88 88 Oximetry General appearance: Present: other (Intubated) - EENT ENT: other (Intubated) - Respiratory Respiratory effort: other (Intubated) Extremities: abnormal (see subjective) - Neurologic Neurologic: moves all extremities - Psychiatric Psychiatric: other (Intubated) - Labs CBC & Chem 7: 12/12/20 08:10 12/12/20 06:04 Labs: Abnormal lab results 12/10/20 12/11/20 12/11/20 Range/Units 04:10 15:45 15:45 WBC (4.5-11.0) K/mm3 RBC (3.65-5.03) M/mm3 Hgb (10.1-14.3) gm/dl Hct (30.3-42.9) % MCH (28-32) pg RDW (13.2-15.2) % Plt Count (140-440) K/mm3 PT 17.3 H (12.2-14.9) Sec. INR 1.35 H (0.87-1.13) Fibrinogen 104 L* (211-480) mg/dl D-Dimer (0-234) ng/mlDDU Heparin Anti-Xa Level < 0.10 L (0.3-0.7) U.I./ml POC ABG pO2 (83-108) mmHg ABG Hemoglobin (12.0-17.5) ABG Oxyhemoglobin (94-98) ABG Chloride (98-107) mmol/L ABG Glucose (65-95) mg/dL Sodium (137-145) mmol/L Chloride (98-107) mmol/L Carbon Dioxide (22-30) mmol/L BUN (7-17) mg/dL Glucose (65-100) mg/dL POC Glucose (70-105) mg/dL Calcium (8.4-10.2) mg/dL Magnesium (1.7-2.3) mg/dL Ferritin (10.0-200.0) ng/mL Lactate Dehydrogenase (91-180) units/L C-Reactive Protein (0.00-1.30) mg/dL Arterial Blood Glucose (65-95) mg/dL Crossmatch See Detail 12/11/20 12/11/20 12/11/20 Range/Units 16:21 17:54 21:28 WBC 17.2 H (4.5-11.0) K/mm3 RBC 2.38 L (3.65-5.03) M/mm3 Hgb 6.3 L (10.1-14.3) gm/dl Hct 19.6 L* (30.3-42.9) % MCH 27 L (28-32) pg RDW 18.8 H (13.2-15.2) % Plt Count 91 L (140-440) K/mm3 PT (12.2-14.9) Sec. INR (0.87-1.13) Fibrinogen (211-480) mg/dl D-Dimer (0-234) ng/mlDDU Heparin Anti-Xa Level (0.3-0.7) U.I./ml POC ABG pO2 (83-108) mmHg ABG Hemoglobin (12.0-17.5) ABG Oxyhemoglobin (94-98) ABG Chloride (98-107) mmol/L ABG Glucose (65-95) mg/dL Sodium (137-145) mmol/L Chloride (98-107) mmol/L Carbon Dioxide (22-30) mmol/L BUN (7-17) mg/dL Glucose (65-100) mg/dL POC Glucose 259 H 251 H (70-105) mg/dL Calcium (8.4-10.2) mg/dL Magnesium (1.7-2.3) mg/dL Ferritin (10.0-200.0) ng/mL Lactate Dehydrogenase (91-180) units/L C-Reactive Protein (0.00-1.30) mg/dL Arterial Blood Glucose (65-95) mg/dL Crossmatch 12/11/20 12/11/20 12/12/20 Range/Units 23:19 Unknown 04:00 WBC (4.5-11.0) K/mm3 RBC (3.65-5.03) M/mm3 Hgb 8.3 L (10.1-14.3) gm/dl Hct 26.0 L D (30.3-42.9) % MCH (28-32) pg RDW (13.2-15.2) % Plt Count (140-440) K/mm3 PT (12.2-14.9) Sec. INR (0.87-1.13) Fibrinogen (211-480) mg/dl D-Dimer (0-234) ng/mlDDU Heparin Anti-Xa Level (0.3-0.7) U.I./ml POC ABG pO2 79.5 L (83-108) mmHg ABG Hemoglobin 8.8 L (12.0-17.5) ABG Oxyhemoglobin 93.5 L (94-98) ABG Chloride 114.0 H (98-107) mmol/L ABG Glucose 257 H (65-95) mg/dL Sodium (137-145) mmol/L Chloride (98-107) mmol/L Carbon Dioxide (22-30) mmol/L BUN (7-17) mg/dL Glucose (65-100) mg/dL POC Glucose 229 H (70-105) mg/dL Calcium (8.4-10.2) mg/dL Magnesium (1.7-2.3) mg/dL Ferritin (10.0-200.0) ng/mL Lactate Dehydrogenase (91-180) units/L C-Reactive Protein (0.00-1.30) mg/dL Arterial Blood Glucose 257 H (65-95) mg/dL Crossmatch 12/12/20 12/12/20 12/12/20 Range/Units 04:44 06:04 06:04 WBC 22.1 H (4.5-11.0) K/mm3 RBC 3.21 L (3.65-5.03) M/mm3 Hgb 8.4 L (10.1-14.3) gm/dl Hct 26.8 L (30.3-42.9) % MCH 26 L (28-32) pg RDW 19.5 H (13.2-15.2) % Plt Count 106 L (140-440) K/mm3 PT (12.2-14.9) Sec. INR (0.87-1.13) Fibrinogen (211-480) mg/dl D-Dimer (0-234) ng/mlDDU Heparin Anti-Xa Level (0.3-0.7) U.I./ml POC ABG pO2 (83-108) mmHg ABG Hemoglobin (12.0-17.5) ABG Oxyhemoglobin (94-98) ABG Chloride (98-107) mmol/L ABG Glucose (65-95) mg/dL Sodium 146 H D (137-145) mmol/L Chloride 116.0 H (98-107) mmol/L Carbon Dioxide 20 L (22-30) mmol/L BUN 40 H (7-17) mg/dL Glucose 234 H (65-100) mg/dL POC Glucose 232 H (70-105) mg/dL Calcium 7.5 L (8.4-10.2) mg/dL Magnesium 3.10 H (1.7-2.3) mg/dL Ferritin (10.0-200.0) ng/mL Lactate Dehydrogenase 1274 H (91-180) units/L C-Reactive Protein 2.80 H (0.00-1.30) mg/dL Arterial Blood Glucose (65-95) mg/dL Crossmatch 12/12/20 12/12/20 12/12/20 Range/Units 06:04 08:10 08:10 WBC (4.5-11.0) K/mm3 RBC (3.65-5.03) M/mm3 Hgb 8.2 L (10.1-14.3) gm/dl Hct 25.9 L (30.3-42.9) % MCH (28-32) pg RDW (13.2-15.2) % Plt Count (140-440) K/mm3 PT (12.2-14.9) Sec. INR (0.87-1.13) Fibrinogen 100 L* (211-480) mg/dl D-Dimer > 82679 H (0-234) ng/mlDDU Heparin Anti-Xa Level (0.3-0.7) U.I./ml POC ABG pO2 (83-108) mmHg ABG Hemoglobin (12.0-17.5) ABG Oxyhemoglobin (94-98) ABG Chloride (98-107) mmol/L ABG Glucose (65-95) mg/dL Sodium (137-145) mmol/L Chloride (98-107) mmol/L Carbon Dioxide (22-30) mmol/L BUN (7-17) mg/dL Glucose (65-100) mg/dL POC Glucose (70-105) mg/dL Calcium (8.4-10.2) mg/dL Magnesium (1.7-2.3) mg/dL Ferritin 240.7 H (10.0-200.0) ng/mL Lactate Dehydrogenase (91-180) units/L C-Reactive Protein (0.00-1.30) mg/dL Arterial Blood Glucose (65-95) mg/dL Crossmatch 12/12/20 Range/Units 11:49 WBC (4.5-11.0) K/mm3 RBC (3.65-5.03) M/mm3 Hgb (10.1-14.3) gm/dl Hct (30.3-42.9) % MCH (28-32) pg RDW (13.2-15.2) % Plt Count (140-440) K/mm3 PT (12.2-14.9) Sec. INR (0.87-1.13) Fibrinogen (211-480) mg/dl D-Dimer (0-234) ng/mlDDU Heparin Anti-Xa Level (0.3-0.7) U.I./ml POC ABG pO2 (83-108) mmHg ABG Hemoglobin (12.0-17.5) ABG Oxyhemoglobin (94-98) ABG Chloride (98-107) mmol/L ABG Glucose (65-95) mg/dL Sodium (137-145) mmol/L Chloride (98-107) mmol/L Carbon Dioxide (22-30) mmol/L BUN (7-17) mg/dL Glucose (65-100) mg/dL POC Glucose 215 H (70-105) mg/dL Calcium (8.4-10.2) mg/dL Magnesium (1.7-2.3) mg/dL Ferritin (10.0-200.0) ng/mL Lactate Dehydrogenase (91-180) units/L C-Reactive Protein (0.00-1.30) mg/dL Arterial Blood Glucose (65-95) mg/dL Crossmatch Medications & Allergies - Medications Allergies/Adverse Reactions: Allergies shellfish derived Allergy (Verified 12/02/20 03:37) Unknown Home Medications: Home Medications Medication Instructions Recorded Confirmed Last Taken Type [id number] [id number] mg Tab 3 mg PO DAILY 12/03/20 12/03/20 12/02/20 History Iron 65 mg PO DAILY 12/03/20 12/03/20 12/02/20 History Lisinopril/Hydrochlorothiazide 20 mg PO DAILY 12/03/20 12/03/20 Unknown History Metformin HCl [metFORMIN] 1,000 mg PO BID 12/03/20 12/03/20 12/02/20 History Simvastatin 40 mg PO DAILY 12/03/20 12/03/20 Unknown History glipiZIDE 10 mg PO DAILY 12/03/20 12/03/20 Unknown History Active Medications: Generic Name Dose Route Start Last Admin Trade Name Freq PRN Reason Stop Dose Admin Acetaminophen 650 mg 12/02/20 05:09 12/06/20 21:12 Acetaminophen 325 Mg Tab PO 650 mg Q4H PRN Administration Pain MILD(1-3)/Fever >100.5/LARA Albuterol 2.5 mg 12/02/20 05:09 Albuterol 2.5 Mg/3 Ml Nebu IH Q3HRT PRN Shortness Of Breath Lipase/Protease/Amylase 1 each 12/09/20 10:32 Lipase 10,500/Protease 25,000/Amylase 43,750 (Units) Dr Cap FEEDTUBE PRN PRN For Clogged Feeding Tube Ascorbic Acid 500 mg 12/03/20 22:00 12/12/20 09:38 Ascorbic Acid 500 Mg Tab PO 500 mg BID AZAEL Administration Aspirin 81 mg 12/08/20 13:00 12/12/20 09:38 Aspirin 81 Mg Tab Chew PO 81 mg QDAY AZAEL Administration Atorvastatin Calcium 40 mg 12/08/20 22:00 12/11/20 21:24 Atorvastatin 40 Mg Tab PO 40 mg QHS AZAEL Administration Cholecalciferol 5,000 unit 12/02/20 10:00 12/12/20 09:38 Cholecalciferol (Vit D3) 5,000 Unit Tab PO 5,000 unit DAILY AZAEL Administration Clopidogrel Bisulfate 75 mg 12/09/20 10:00 12/12/20 09:38 Clopidogrel 75 Mg Tab PO 75 mg QDAY AZAEL Administration Dextrose 50 ml 12/02/20 05:09 12/05/20 08:09 Dextrose 50% In Water (25gm) 50 Ml Syringe IV 50 ml Q30MIN PRN Administration Hypoglycemia Protocol Docusate Sodium 100 mg 12/02/20 10:00 12/12/20 09:38 Docusate Sodium 100 Mg Cap PO 100 mg BID [facility] Administration Fentanyl 50 mcg 12/08/20 15:13 Fentanyl 100 Mcg/2 Ml Inj IV Q10MIN PRN ANALGESIA Hydrophilic Ointment 1 applic 12/08/20 15:56 Lip Therapy Vaseline TP Q2HR PRN Dry Lips Fentanyl Citrate 2,000 mcg in 100 mls @ 3.243 mls/hr 12/08/20 16:00 12/12/20 13:46 Fentanyl Drip Premix IV 4 mcg/kg/hr TITR [facility] 12.973 mls/hr Administration Protocol 1 MCG/KG/HR NORepinephrine/NS 8 MG-250 ML 8 mg in 250 mls @ 3.75 mls/hr 12/08/20 16:00 12/12/20 11:07 Norepinephrine/Ns 8 Mg-250 Ml (Double Conc) IV 6 mcg/min TITRATE [facility] 11.25 mls/hr Administration Protocol 2 MCG/MIN Propofol 1,000 mg in 100 mls @ 1.946 mls/hr 12/08/20 17:00 12/12/20 11:07 Diprivan 10 Mg/Ml IV 20 mcg/kg/min TITR [facility] 7.784 mls/hr Administration Protocol 5 MCG/KG/MIN Sodium Chloride 500 mls @ 1 mls/hr 12/08/20 17:19 Nacl 0.9% 500 Ml IV DIRECT PRN ARTERIAL LINE FLUSH Cefepime HCl 2 gm in 100 mls @ 200 mls/hr 12/09/20 14:00 12/12/20 14:29 Cefepime/Ns 2 Gm/100 Ml IV 12/14/20 02:29 200 mls/hr Q12H [facility] Administration Protocol Vancomycin HCl 1 gm in 250 mls @ 167.007 mls/hr 12/10/20 14:00 12/12/20 14:28 Vancomycin/Ns 1 Gm/250 Ml IV 12/13/20 15:30 167.007 mls/hr Q24H [facility] Administration Vasopressin 20 unit/ Sodium 101 mls @ 9.09 mls/hr 12/10/20 04:00 12/12/20 00:15 Chloride IV 0.03 units/min TITR [facility] 9.09 mls/hr Administration Protocol 0.03 UNITS/MIN Pantoprazole Sodium 80 mg/ 100 mls @ 10 mls/hr 12/10/20 17:00 12/12/20 14:28 Sodium Chloride IV 8 mg/hr DIRECT [facility] 10 mls/hr Administration 8 MG/HR Insulin Glargine 15 units 12/12/20 22:00 Insulin Glargine 100 Units/Ml SUB-Q QHS [facility] Insulin Human Lispro 0 unit 12/09/20 12:00 12/12/20 13:46 Insulin Lispro 100 Unit/Ml SUB-Q 6 unit Q6HR [facility] Administration Protocol Metoclopramide HCl 5 mg 12/11/20 12:00 12/12/20 14:29 Metoclopramide 10 Mg/2 Ml Inj IV 5 mg Q6H [facility] Administration Multi-Ingred Cream/Lotion/Oil/Oint 1 applic 12/08/20 15:56 Mineral Oil/Petrolatum, White Ophth Oint 3.5 Gm OU Q4HR PRN Dry Eye(s) Naloxone HCl 0.1 mg 12/02/20 05:09 Naloxone 0.4 Mg/1 Ml Inj IV Q2MIN PRN Res Rate </= 8 or 02 SAT < 92% Nitroglycerin 1 inch 12/08/20 14:00 12/12/20 14:28 Nitroglycerin 2% Oint 1 Gm TP 1 inch QIDNTG [facility] Administration Protocol Ondansetron HCl 4 mg 12/02/20 05:09 Ondansetron 4 Mg/2 Ml Inj IV Q6H PRN Nausea And Vomiting Senna/Docusate Sodium 1 tab 12/08/20 22:00 12/12/20 09:36 Sennosides/Docusate Sodium 8.6/50 Mg Tab FEEDTUBE 1 tab BID [facility] Administration Simple Syrup 30 ml 12/09/20 10:32 Simple Syrup 15 Ml FEEDTUBE PRN PRN Hypoglycemia Sodium Bicarbonate 325 mg 12/09/20 10:32 Sodium Bicarbonate 325 Mg Tab FEEDTUBE PRN PRN For Clogged Feeding Tube Sodium Chloride 10 ml 12/02/20 10:00 12/12/20 09:39 Sodium Chloride 0.9% 10 Ml Flush Syringe IV 10 ml BID [facility] Administration Sodium Chloride 10 ml 12/02/20 05:09 Sodium Chloride 0.9% 10 Ml Flush Syringe IV PRN PRN LINE FLUSH Zinc Sulfate 220 mg 12/02/20 10:00 12/12/20 09:37 Zinc Sulfate 220 Mg Cap PO 220 mg QDAY [facility] Administration HEART Score - HEART Score Troponin: Troponin T 0.487 ng/mL (0.00-0.029) H* D 12/09/20 13:08
--- NOTE | 2020-12-12 17:01 | Progress Note ---
Assessment and Plan Acute ST elevation MN during hospital course Normal LVEF COVID 19 pneumonia Acute respiratory failure intubated on the vent Hypertension Diabetes HL ANEMIA Patient is not a candidate for invasive cardiac procedures due to critical illness, respiratory failure and severe COVID 19 pneumonia. Continue aggressive medical therapy including nitrates, beta blockers, aspirin and plavix as tolerated. Subjective Date of service: 12/12/20 Principal diagnosis: Ac hypoxemic resp failure; COVID-19 infection; Pneumonia; ARDS; DM II; HTN Interval history: No acute events Objective Vital Signs Temp Pulse Resp BP Pulse Ox 12/12/20 16:15 118 H 24 151/72 92 12/12/20 16:00 100.2 F H 116 H 24 145/62 94 12/12/20 15:45 121 H 27 H 140/75 89 12/12/20 15:30 122 H 22 142/70 94 12/12/20 15:29 123 H 144/72 88 12/12/20 15:15 123 H 25 H 144/72 88 12/12/20 15:01 124 H 24 159/86 93 12/12/20 14:45 110 H 24 130/73 98 12/12/20 14:30 111 H 23 132/75 98 12/12/20 14:15 107 H 22 129/64 99 12/12/20 14:00 107 H 22 148/73 94 12/12/20 13:45 113 H 24 138/73 100 12/12/20 13:30 121 H 23 168/73 96 12/12/20 13:15 108 H 24 160/75 92 12/12/20 13:00 108 H 24 145/68 92 12/12/20 12:45 111 H 22 141/74 94 12/12/20 12:30 106 H 22 139/69 92 12/12/20 12:15 108 H 22 123/66 95 12/12/20 12:00 109 H 24 137/68 100 12/12/20 11:45 107 H 24 146/71 96 12/12/20 11:30 117 H 22 141/77 94 12/12/20 11:15 102 H 24 136/76 100 12/12/20 11:01 96 H 24 138/73 100 12/12/20 10:45 92 H 24 120/64 100 12/12/20 10:30 89 24 120/60 100 12/12/20 10:15 94 H 24 134/63 100 12/12/20 10:00 98 H 24 131/74 100 12/12/20 09:45 101 H 23 128/70 100 12/12/20 09:30 96 H 24 119/71 100 12/12/20 09:15 86 24 99/48 100 12/12/20 09:00 90 24 108/62 100 12/12/20 08:45 86 24 99/63 100 12/12/20 08:30 84 24 100/61 100 12/12/20 08:15 76 23 94/51 100 12/12/20 08:00 100 F H 83 24 94/51 100 12/12/20 07:45 85 24 123/64 100 12/12/20 07:30 81 24 107/56 100 12/12/20 07:15 87 24 115/61 97 12/12/20 07:00 94 H 24 115/61 100 12/12/20 06:45 97 H 23 133/71 93 12/12/20 06:30 91 H 24 133/71 96 12/12/20 06:15 83 24 131/62 100 12/12/20 06:00 88 24 131/62 100 12/12/20 05:45 81 24 120/57 100 12/12/20 05:30 86 24 130/67 100 12/12/20 05:18 80 131/61 12/12/20 05:15 85 24 131/61 100 12/12/20 05:00 87 24 122/60 100 12/12/20 04:45 82 24 124/58 100 12/12/20 04:30 86 24 125/68 100 12/12/20 04:15 89 21 124/58 100 12/12/20 04:08 60 115/52 100 12/12/20 04:01 80 24 118/58 100 12/12/20 04:00 71 24 98 12/12/20 03:45 73 24 115/52 100 12/12/20 03:32 99.4 F 12/12/20 03:30 60 24 115/52 100 12/12/20 03:15 59 L 24 107/46 100 12/12/20 03:00 59 L 24 114/45 100 12/12/20 02:45 60 24 111/50 100 12/12/20 02:30 59 L 24 106/44 100 12/12/20 02:15 61 24 115/47 100 12/12/20 02:00 61 24 112/48 100 12/12/20 01:45 58 L 24 111/46 100 12/12/20 01:30 63 24 110/49 100 12/12/20 01:15 61 24 113/48 100 12/12/20 01:00 60 24 104/50 100 12/12/20 00:45 63 24 105/48 100 12/12/20 00:30 63 24 107/55 100 12/12/20 00:15 64 24 111/52 100 12/12/20 00:00 68 24 116/55 98 12/11/20 23:45 70 24 159/45 100 12/11/20 23:40 99.1 F 12/11/20 23:31 60 24 159/45 100 12/11/20 23:24 57 L 118/46 100 12/11/20 23:15 64 24 114/52 100 12/11/20 23:00 58 L 24 114/52 100 12/11/20 22:45 59 L 24 118/46 100 12/11/20 22:30 58 L 24 115/46 100 12/11/20 22:15 59 L 24 116/54 100 12/11/20 22:00 59 L 24 111/44 100 12/11/20 21:45 60 24 116/48 100 12/11/20 21:30 58 L 24 121/52 100 12/11/20 21:15 60 24 116/47 100 12/11/20 21:00 61 24 130/50 100 12/11/20 20:45 60 24 113/49 100 12/11/20 20:32 60 113/49 100 12/11/20 20:30 59 L 24 113/49 100 12/11/20 20:15 61 24 124/48 100 12/11/20 20:00 99.1 F 56 L 24 124/48 100 12/11/20 19:45 56 L 24 122/48 100 12/11/20 19:30 99 F 58 L 24 122/49 100 12/11/20 19:15 61 24 113/49 100 12/11/20 19:01 65 24 110/43 100 12/11/20 18:51 69 104/51 08/27/21 18:45 99.1 F 73 24 104/51 100 12/11/20 18:30 99.1 F 71 24 92/43 100 12/11/20 18:19 69 24 110/49 100 12/11/20 18:15 70 24 110/49 100 12/11/20 18:00 82 24 94/44 100 12/11/20 17:45 74 24 104/55 100 12/11/20 17:31 79 24 104/44 100 12/11/20 17:15 77 24 122/59 100 - Physical Examination General: Other (intubated on the vent,,EXAM DEFERRRED) Cardiac: Positive: Reg Rate and Rhythm Lungs: Positive: clear to auscultation Abdomen: Positive: Soft - Labs and Meds Cardiac Enzymes 12/12/20 Range/Units 06:04 Lactate Dehydrogenase 1274 H (91-180) units/L CBC 12/11/20 12/11/20 12/12/20 Range/Units 16:21 Unknown 06:04 WBC 17.2 H 22.1 H (4.5-11.0) K/mm3 RBC 2.38 L 3.21 L (3.65-5.03) M/mm3 Hgb 6.3 L 8.3 L 8.4 L (10.1-14.3) gm/dl Hct 19.6 L* 26.0 L D 26.8 L (30.3-42.9) % Plt Count 91 L 106 L (140-440) K/mm3 12/12/20 Range/Units 08:10 WBC (4.5-11.0) K/mm3 RBC (3.65-5.03) M/mm3 Hgb 8.2 L (10.1-14.3) gm/dl Hct 25.9 L (30.3-42.9) % Plt Count (140-440) K/mm3 Comprehensive Metabolic Panel 12/12/20 Range/Units 06:04 Sodium 146 H D (137-145) mmol/L Potassium 4.3 (3.6-5.0) mmol/L Chloride 116.0 H (98-107) mmol/L Carbon Dioxide 20 L (22-30) mmol/L BUN 40 H (7-17) mg/dL Creatinine 1.0 (0.6-1.2) mg/dL Glucose 234 H (65-100) mg/dL Calcium 7.5 L (8.4-10.2) mg/dL - Allied health notes Allied health notes reviewed: nursing
[2020-12-12] MEDS: ACETAMINOPHEN 325 MG TAB PO PRN (18:19)
[2020-12-12] MEDS ORDERED: INSULIN GLARGINE 100 UNITS/ML SUB-Q SCH (22:00)
[2020-12-13] MEDS: METOCLOPRAMIDE 10 MG/2 ML INJ IV SCH ×3 (01:01→12:57)
[2020-12-13] MEDS: INSULIN LISPRO 100 UNIT/ML SUB-Q SCH ×4 (01:16→17:52)
[2020-12-13] MEDS: CEFEPIME/NS 2 GM/100 ML 2 GM/100 ML BAG IV SCH ×2 (02:46→17:52)
[2020-12-13] MEDS: fentaNYL DRIP Premix 2,000 MCG/100 ML BAG IV SCH ×2 (06:57→14:41)
[2020-12-13] MEDS: NITROGLYCERIN 2% OINT 1 GM TP SCH ×4 (06:58→17:54)
[2020-12-13 07:29] LABS: Hematocrit 22.6 % (30.3-42.9); Hemoglobin 7.1 gm/dl (10.1-14.3); Mean Corpuscular HGB Conc 31 % (30-34); Mean Corpuscular Volume 83 fl (79-97); Red Blood Count 2.74 M/mm3 (3.65-5.03)
[2020-12-13 07:46] LABS: Platelet Count 80 K/mm3 (140-440); Red Cell Distribution Width 20.3 % (13.2-15.2)
[2020-12-13 07:58] LABS: Albumin 2.8 g/dL (3.9-5); Calcium 8.4 mg/dL (8.4-10.2)
--- NOTE | 2020-12-13 10:19 | Hem/Onc Consultation ---
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 thrombocytopenia and arm DVT 65yo AA woman with recent covid symptoms-->abn Chest CT-->now admitted for covid pneumonia, s/p SC has been intubated in ICU-->hypoxia-->IV heparin for presumed PE has been receiving steroids, s/p tocilizumab right arm brachial DVT found, Left hand ischemia described received IV heparin-->oral bleeding-->RBC transfusion 12/10/20 has had low fibrinogen has been on vasopressors data reviewed below IMP: covid pneumonia, critically ill, on vasopressors presumed clotting tendency with L hand digital ischemia, R arm DVT, STEMI "clotter-bleeder", not tolerating "full dose" heparin low fibrinogen related to critical illness, maybe HIT REC: labs to include PF4 Ab cryo transfusion today back on steroids for presumed adrenal insufficiency consider "low dose" argatroban if/when bleeding stops RBC transfusions for bleeding or severe anemia per nurse: L radial pulse is weak some bleeding in mouth fibrinogen low PMH: GI tract bleeding 2016, per notes Active Medications Lipase/Protease/Amylase (Lipase 10,500/Protease 25,000/Amylase 43,750 (Units) Dr Fong) 1 each FEEDTUBE PRN PRN PRN Reason: For Clogged Feeding Tube Ascorbic Acid (Ascorbic Acid 500 Mg Tab) 500 mg PO BID [facility] Last Admin: 12/12/20 22:20 Dose: 500 mg Documented by: Aspirin (Aspirin 81 Mg Tab Chew) 81 mg PO QDAY [facility] Last Admin: 12/12/20 09:38 Dose: 81 mg Documented by: Clopidogrel Bisulfate (Clopidogrel 75 Mg Tab) 75 mg PO QDAY [facility] Last Admin: 12/12/20 09:38 Dose: 75 mg Documented by: Sodium Chloride (Nacl 0.9% 500 Ml) 500 mls @ 1 mls/hr IV DIRECT PRN PRN Reason: ARTERIAL LINE FLUSH Cefepime HCl (Cefepime/Ns 2 Gm/100 Ml) 2 gm in 100 mls @ 200 mls/hr IV Q12H [facility]; Protocol Stop: 12/14/20 02:29 Last Admin: 12/13/20 02:46 Dose: 200 mls/hr Documented by: Vancomycin HCl (Vancomycin/Ns 1 Gm/250 Ml) 1 gm in 250 mls @ 167.007 mls/hr IV Q24H [facility] Stop: 12/13/20 15:30 Last Admin: 12/12/20 14:28 Dose: 167.007 mls/hr Documented by: Laboratory Last Values WBC 23.0 K/mm3 (4.5-11.0) H 12/13/20 06:55 Hgb 7.1 gm/dl (10.1-14.3) L 12/13/20 06:55 Hct 22.6 % (30.3-42.9) L 12/13/20 06:55 Plt Count 80 K/mm3 (140-440) L 12/13/20 06:55 PT 17.3 Sec. (12.2-14.9) H 12/11/20 15:45 INR 1.35 (0.87-1.13) H 12/11/20 15:45 APTT 29.2 Sec. (24.2-36.6) 12/11/20 15:45 Fibrinogen 100 mg/dl (211-480) L* 12/12/20 08:10 D-Dimer > 63049 ng/mlDDU (0-234) H 12/12/20 08:10 Creatinine 1.1 mg/dL (0.6-1.2) 12/13/20 06:55 Ferritin 240.7 ng/mL (10.0-200.0) H 12/12/20 06:04 Total Bilirubin 0.50 mg/dL (0.1-1.2) 12/13/20 06:55 AST 88 units/L (5-40) H 12/13/20 06:55 ALT 19 units/L (7-56) 12/13/20 06:55 Alkaline Phosphatase 241 units/L (35-129) H 12/13/20 06:55 Lactate Dehydrogenase 1274 units/L (91-180) H 12/12/20 06:04 Coronavirus (PCR) Positive (Negative) A 12/02/20 08:15 Blood Type O POSITIVE 12/10/20 04:10 Antibody Screen Negative 12/10/20 04:10 Crossmatch See Detail 12/10/20 04:10 Past History Past Medical History: diabetes, hypertension, other (GIB (2016)) Past Surgical History: Other (right wrist sx) Social history: single, full code, other (has a roommate). denies: smoking, alcohol abuse, prescription drug abuse, IV drug use Family history: diabetes, hypertension Medications and Allergies Allergies Allergy/AdvReac Type Severity Reaction Status Date / Time shellfish derived Allergy Unknown Verified 12/02/20 03:37 Home Medications Medication Instructions Recorded Confirmed Last Taken Type Hxz-Zvz-Boya 334-134-5 mg Tab 3 mg PO DAILY 12/03/20 12/03/20 12/02/20 History Iron 65 mg PO DAILY 12/03/20 12/03/20 12/02/20 History Lisinopril/Hydrochlorothiazide 20 mg PO DAILY 12/03/20 12/03/20 Unknown History Metformin HCl [metFORMIN] 1,000 mg PO BID 12/03/20 12/03/20 12/02/20 History Simvastatin 40 mg PO DAILY 12/03/20 12/03/20 Unknown History glipiZIDE 10 mg PO DAILY 12/03/20 12/03/20 Unknown History Active Meds: Active Medications Acetaminophen (Acetaminophen 325 Mg Tab) 650 mg PO Q4H PRN PRN Reason: Pain MILD(1-3)/Fever >100.5/LARA Last Admin: 12/12/20 18:19 Dose: 650 mg Documented by: Albuterol (Albuterol 2.5 Mg/3 Ml Nebu) 2.5 mg IH Q3HRT PRN PRN Reason: Shortness Of Breath Lipase/Protease/Amylase (Lipase 10,500/Protease 25,000/Amylase 43,750 (Units) Dr Fong) 1 each FEEDTUBE PRN PRN PRN Reason: For Clogged Feeding Tube Ascorbic Acid (Ascorbic Acid 500 Mg Tab) 500 mg PO BID [facility] Last Admin: 12/12/20 22:20 Dose: 500 mg Documented by: Aspirin (Aspirin 81 Mg Tab Chew) 81 mg PO QDAY [facility] Last Admin: 12/12/20 09:38 Dose: 81 mg Documented by: Atorvastatin Calcium (Atorvastatin 40 Mg Tab) 40 mg PO QHS [facility] Last Admin: 12/12/20 22:15 Dose: 40 mg Documented by: Cholecalciferol (Cholecalciferol (Vit D3) 5,000 Unit Tab) 5,000 unit PO DAILY [facility] Last Admin: 12/12/20 09:38 Dose: 5,000 unit Documented by: Clopidogrel Bisulfate (Clopidogrel 75 Mg Tab) 75 mg PO QDAY [facility] Last Admin: 12/12/20 09:38 Dose: 75 mg Documented by: Dextrose (Dextrose 50% In Water (25gm) 50 Ml Syringe) 50 ml IV Q30MIN PRN; Protocol PRN Reason: Hypoglycemia Last Admin: 12/05/20 08:09 Dose: 50 ml Documented by: Docusate Sodium (Docusate Sodium 100 Mg Cap) 100 mg PO BID [facility] Last Admin: 12/12/20 09:38 Dose: 100 mg Documented by: Fentanyl (Fentanyl 100 Mcg/2 Ml Inj) 50 mcg IV Q10MIN PRN PRN Reason: ANALGESIA Hydrophilic Ointment (Lip Therapy Vaseline) 1 applic TP Q2HR PRN PRN Reason: Dry Lips Fentanyl Citrate (Fentanyl Drip Premix) 2,000 mcg in 100 mls @ 3.243 mls/hr IV TITR [facility]; Protocol Last Admin: 12/13/20 06:57 Dose: 4 mcg/kg/hr, 12.973 mls/hr Documented by: NORepinephrine/NS 8 MG-250 ML (Norepinephrine/Ns 8 Mg-250 Ml (Double Conc)) 8 mg in 250 mls @ 3.75 mls/hr IV TITRATE [facility]; Protocol Last Titration: 12/12/20 16:30 Dose: 4 mcg/min, 7.5 mls/hr Documented by: Propofol (Diprivan 10 Mg/Ml) 1,000 mg in 100 mls @ 1.946 mls/hr IV TITR [facility]; Protocol Last Titration: 12/13/20 02:47 Dose: 25 mcg/kg/min, 9.73 mls/hr Documented by: Sodium Chloride (Nacl 0.9% 500 Ml) 500 mls @ 1 mls/hr IV DIRECT PRN PRN Reason: ARTERIAL LINE FLUSH Cefepime HCl (Cefepime/Ns 2 Gm/100 Ml) 2 gm in 100 mls @ 200 mls/hr IV Q12H [facility]; Protocol Stop: 12/14/20 02:29 Last Admin: 12/13/20 02:46 Dose: 200 mls/hr Documented by: Vancomycin HCl (Vancomycin/Ns 1 Gm/250 Ml) 1 gm in 250 mls @ 167.007 mls/hr IV Q24H [facility] Stop: 12/13/20 15:30 Last Admin: 12/12/20 14:28 Dose: 167.007 mls/hr Documented by: Vasopressin 20 unit/ Sodium (Chloride) 101 mls @ 9.09 mls/hr IV TITR [facility]; Protocol Last Titration: 12/12/20 12:00 Dose: Infused Documented by: Insulin Glargine (Insulin Glargine 100 Units/Ml) 20 units SUB-Q QHS [facility] Insulin Human Lispro (Insulin Lispro 100 Unit/Ml) 0 unit SUB-Q Q6HR [facility]; Protocol Last Admin: 12/13/20 06:58 Dose: 4 unit Documented by: Metoclopramide HCl (Metoclopramide 10 Mg/2 Ml Inj) 5 mg IV Q6H [facility] Last Admin: 12/13/20 06:57 Dose: 5 mg Documented by: Multi-Ingred Cream/Lotion/Oil/Oint (Mineral Oil/Petrolatum, White Ophth Oint 3.5 Gm) 1 applic OU Q4HR PRN PRN Reason: Dry Eye(s) Naloxone HCl (Naloxone 0.4 Mg/1 Ml Inj) 0.1 mg IV Q2MIN PRN PRN Reason: Res Rate </= 8 or 02 SAT < 92% Nitroglycerin (Nitroglycerin 2% Oint 1 Gm) 1 inch TP QIDNTG [facility]; Protocol Last Admin: 12/13/20 06:58 Dose: 1 inch Documented by: Ondansetron HCl (Ondansetron 4 Mg/2 Ml Inj) 4 mg IV Q6H PRN PRN Reason: Nausea And Vomiting Pantoprazole Sodium (Pantoprazole 40 Mg Inj) 40 mg IV BID [facility] Senna/Docusate Sodium (Sennosides/Docusate Sodium 8.6/50 Mg Tab) 1 tab FEEDTUBE BID [facility] Last Admin: 12/12/20 22:15 Dose: 1 tab Documented by: Simple Syrup (Simple Syrup 15 Ml) 30 ml FEEDTUBE PRN PRN PRN Reason: Hypoglycemia Sodium Bicarbonate (Sodium Bicarbonate 325 Mg Tab) 325 mg FEEDTUBE PRN PRN PRN Reason: For Clogged Feeding Tube Sodium Chloride (Sodium Chloride 0.9% 10 Ml Flush Syringe) 10 ml IV BID [facility] Last Admin: 12/12/20 22:16 Dose: 10 ml Documented by: Sodium Chloride (Sodium Chloride 0.9% 10 Ml Flush Syringe) 10 ml IV PRN PRN PRN Reason: LINE FLUSH Zinc Sulfate (Zinc Sulfate 220 Mg Cap) 220 mg PO QDAY [facility] Last Admin: 12/12/20 09:37 Dose: 220 mg Documented by: Exam - Constitutional Vitals: Last Vital Signs Temp 99.1 F 12/13/20 08:00 Pulse 110 H 12/13/20 09:30 Resp 19 12/13/20 09:30 BP 134/62 12/13/20 09:30 Pulse Ox 92 12/13/20 09:30 Results - Labs lab Results: Laboratory Results - last 24 hr 12/12/20 12/12/20 12/12/20 08:10 11:49 17:41 WBC RBC Hgb Hct MCV MCH MCHC RDW Plt Count Fibrinogen 100 L* D-Dimer > 72905 H ABG pH POC ABG pCO2 POC ABG pO2 POC ABG HCO3 ABG O2 Saturation POC ABG Base Excess ABG Hemoglobin ABG Oxyhemoglobin ABG Methemoglobin ABG Sodium ABG Potassium ABG Chloride ABG Glucose Carboxyhemoglobin FiO2 % Sodium Potassium Chloride Carbon Dioxide Anion Gap BUN Creatinine Estimated GFR BUN/Creatinine Ratio Glucose POC Glucose 215 H 143 H Calcium Phosphorus Magnesium Total Bilirubin AST ALT Alkaline Phosphatase Total Protein Albumin Albumin/Globulin Ratio Arterial Blood Glucose Arterial Blood Ionized Calcium 12/12/20 12/13/20 12/13/20 23:38 04:00 05:20 WBC RBC Hgb Hct MCV MCH MCHC RDW Plt Count Fibrinogen D-Dimer ABG pH 7.361 POC ABG pCO2 45.9 POC ABG pO2 56.6 L POC ABG HCO3 25.4 ABG O2 Saturation 87.1 POC ABG Base Excess -0.1 ABG Hemoglobin 7.0 L ABG Oxyhemoglobin 85.1 L ABG Methemoglobin 0.3 ABG Sodium 142.9 ABG Potassium 4.5 ABG Chloride 118.0 H ABG Glucose 231 H Carboxyhemoglobin 2.0 H FiO2 % 90.0 Sodium Potassium Chloride Carbon Dioxide Anion Gap BUN Creatinine Estimated GFR BUN/Creatinine Ratio Glucose POC Glucose 220 H 215 H Calcium Phosphorus Magnesium Total Bilirubin AST ALT Alkaline Phosphatase Total Protein Albumin Albumin/Globulin Ratio Arterial Blood Glucose 231 H Arterial Blood Ionized Calcium 4.8 12/13/20 12/13/20 06:55 06:55 WBC 23.0 H RBC 2.74 L Hgb 7.1 L Hct 22.6 L MCV 83 MCH 26 L MCHC 31 RDW 20.3 H Plt Count 80 L Fibrinogen D-Dimer ABG pH POC ABG pCO2 POC ABG pO2 POC ABG HCO3 ABG O2 Saturation POC ABG Base Excess ABG Hemoglobin ABG Oxyhemoglobin ABG Methemoglobin ABG Sodium ABG Potassium ABG Chloride ABG Glucose Carboxyhemoglobin FiO2 % Sodium 149 H Potassium 4.7 Chloride 115.8 H Carbon Dioxide 24 Anion Gap 14 BUN 45 H Creatinine 1.1 Estimated GFR 60 BUN/Creatinine Ratio 41 Glucose 237 H POC Glucose Calcium 8.4 Phosphorus 3.00 Magnesium 3.10 H Total Bilirubin 0.50 AST 88 H ALT 19 Alkaline Phosphatase 241 H Total Protein 5.1 L Albumin 2.8 L Albumin/Globulin Ratio 1.2 Arterial Blood Glucose Arterial Blood Ionized Calcium
--- NOTE | 2020-12-13 10:20 | Progress Note ---
Assessment and Plan Normal LVEF COVID 19 pneumonia Acute respiratory failure intubated on the vent Abnormal EKG with subtle inferior ST elevation however normal wall motion and echo Hypertension Diabetes HL ANEMIA Patient is not a candidate for invasive cardiac procedures due to critical illness, respiratory failure and severe COVID 19 pneumonia. Continue aggressive medical therapy including nitrates, beta blockers, aspirin and plavix as tolerated. Subjective Date of service: 12/13/20 Principal diagnosis: Ac hypoxemic resp failure; COVID-19 infection; Pneumonia; ARDS; DM II; HTN Interval history: Patient continues to do poorly in the setting of Covid pneumonia Objective Vital Signs Temp Pulse Pulse Resp BP Pulse Ox 12/13/20 09:30 110 H 19 134/62 92 12/13/20 09:15 100 H 24 91/43 100 12/13/20 09:00 94 H 24 91/43 100 12/13/20 08:45 96 H 24 98/49 100 12/13/20 08:30 98 H 22 91/49 100 12/13/20 08:15 103 H 24 100/50 100 12/13/20 08:00 99.1 F 93 H 20 91/43 100 12/13/20 07:45 109 H 22 116/47 100 12/13/20 07:30 113 H 19 104/45 100 12/13/20 07:15 125 H 23 87/42 95 12/13/20 07:01 123 H 23 127/71 100 12/13/20 06:58 133 H 127/71 12/13/20 06:45 130 H 20 141/60 81 L 12/13/20 06:42 80 L 12/13/20 06:31 124 H 18 141/60 79 L 12/13/20 06:15 124 H 22 156/69 79 L 12/13/20 06:01 120 H 18 123/64 83 L 12/13/20 05:45 111 H 17 124/60 87 12/13/20 05:30 103 H 18 124/60 92 12/13/20 05:15 99 H 21 110/53 99 12/13/20 05:02 102 H 111/49 95 12/13/20 05:00 100 H 21 101/54 99 12/13/20 04:45 103 H 22 110/56 92 12/13/20 04:30 103 H 20 110/54 92 12/13/20 04:15 111 H 20 123/66 91 12/13/20 04:00 102 H 19 111/49 95 12/13/20 03:45 101 H 20 122/67 95 12/13/20 03:31 108 H 25 H 122/67 96 12/13/20 03:15 104 H 20 106/49 97 12/13/20 03:09 100 F H 12/13/20 03:00 108 H 21 93/48 98 12/13/20 02:45 109 H 20 114/49 97 12/13/20 02:31 113 H 20 114/49 95 12/13/20 02:15 114 H 20 112/60 93 12/13/20 02:00 123 H 22 126/69 97 12/13/20 01:45 124 H 22 128/68 95 12/13/20 01:30 116 H 21 108/54 87 12/13/20 01:15 125 H 24 116/68 90 12/13/20 01:00 128 H 25 H 154/76 87 12/13/20 00:45 123 H 20 166/73 81 L 12/13/20 00:30 123 H 22 166/73 80 L 12/13/20 00:15 122 H 20 125/65 84 12/13/20 00:00 100 F H 102 H 113 H 25 H 125/65 94 12/12/20 23:45 106 H 21 130/62 98 12/12/20 23:35 113 H 26 H 130/62 97 12/12/20 23:30 109 H 21 130/62 98 12/12/20 23:18 112 H 138/57 98 12/12/20 23:15 114 H 21 157/73 99 12/12/20 23:00 110 H 22 138/57 86 12/12/20 22:45 115 H 23 137/66 91 12/12/20 22:30 125 H 17 138/68 89 12/12/20 22:15 120 H 22 152/77 89 12/12/20 22:00 116 H 21 144/69 88 12/12/20 21:45 112 H 22 134/69 87 12/12/20 21:30 114 H 25 H 115/58 88 12/12/20 21:15 104 H 22 115/58 94 12/12/20 21:00 105 H 23 122/57 95 12/12/20 20:45 113 H 22 119/59 95 12/12/20 20:30 111 H 24 114/54 93 12/12/20 20:15 118 H 25 H 120/60 94 12/12/20 20:00 113 H 113 H 26 H 120/60 95 12/12/20 19:49 100.2 F H 12/12/20 19:45 117 H 21 109/68 96 12/12/20 19:30 118 H 23 130/70 95 12/12/20 19:15 117 H 22 122/66 94 12/12/20 19:00 115 H 21 127/59 94 12/12/20 18:45 113 H 22 140/60 95 12/12/20 18:30 121 H 24 140/60 95 12/12/20 18:15 114 H 24 141/64 97 12/12/20 18:00 115 H 23 138/65 97 12/12/20 17:45 115 H 22 146/68 93 12/12/20 17:30 110 H 24 125/60 97 12/12/20 17:15 111 H 24 133/69 97 12/12/20 17:00 110 H 26 H 129/61 97 12/12/20 16:45 113 H 23 145/62 93 12/12/20 16:30 119 H 22 132/74 97 12/12/20 16:15 118 H 24 151/72 92 12/12/20 16:00 100.2 F H 116 H 24 145/62 94 12/12/20 15:45 121 H 27 H 140/75 89 12/12/20 15:30 122 H 22 142/70 94 12/12/20 15:29 123 H 144/72 88 12/12/20 15:15 123 H 25 H 144/72 88 12/12/20 15:01 124 H 24 159/86 93 12/12/20 14:45 110 H 24 130/73 98 12/12/20 14:30 111 H 23 132/75 98 12/12/20 14:15 107 H 22 129/64 99 12/12/20 14:00 107 H 22 148/73 94 12/12/20 13:45 113 H 24 138/73 100 12/12/20 13:30 121 H 23 168/73 96 12/12/20 13:15 108 H 24 160/75 92 12/12/20 13:00 108 H 24 145/68 92 12/12/20 12:45 111 H 22 141/74 94 12/12/20 12:30 106 H 22 139/69 92 12/12/20 12:15 108 H 22 123/66 95 12/12/20 12:00 109 H 24 137/68 100 12/12/20 11:45 107 H 24 146/71 96 12/12/20 11:30 117 H 22 141/77 94 12/12/20 11:15 102 H 24 136/76 100 12/12/20 11:01 96 H 24 138/73 100 12/12/20 10:45 92 H 24 120/64 100 12/12/20 10:30 89 24 120/60 100 - Physical Examination General: Other (intubated on the vent,,EXAM DEFERRRED) HEENT: Positive: Normocephaly Cardiac: Positive: Reg Rate and Rhythm Lungs: Positive: No Wheeze, Rales, Rhonchi Neuro: Positive: Other (Patient sedated and intubated) Abdomen: Positive: Unremarkable, Soft - Labs and Meds Cardiac Enzymes 12/13/20 Range/Units 06:55 AST 88 H (5-40) units/L CBC 12/13/20 Range/Units 06:55 WBC 23.0 H (4.5-11.0) K/mm3 RBC 2.74 L (3.65-5.03) M/mm3 Hgb 7.1 L (10.1-14.3) gm/dl Hct 22.6 L (30.3-42.9) % Plt Count 80 L (140-440) K/mm3 Comprehensive Metabolic Panel 12/13/20 Range/Units 06:55 Sodium 149 H (137-145) mmol/L Potassium 4.7 (3.6-5.0) mmol/L Chloride 115.8 H (98-107) mmol/L Carbon Dioxide 24 (22-30) mmol/L BUN 45 H (7-17) mg/dL Creatinine 1.1 (0.6-1.2) mg/dL Glucose 237 H (65-100) mg/dL Calcium 8.4 (8.4-10.2) mg/dL AST 88 H (5-40) units/L ALT 19 (7-56) units/L Alkaline Phosphatase 241 H (35-129) units/L Total Protein 5.1 L (6.3-8.2) g/dL Albumin 2.8 L (3.9-5) g/dL - Allied health notes Allied health notes reviewed: nursing
[2020-12-13] MEDS: ASCORBIC ACID 500 MG TAB PO SCH ×2 (10:48→21:54)
[2020-12-13] MEDS: SENNOSIDES/DOCUSATE SODIUM 8.6/50 MG TAB FEEDTUBE SCH ×2 (10:48→21:58)
[2020-12-13] MEDS: CLOPIDOGREL 75 MG TAB PO SCH (10:48)
[2020-12-13] MEDS: CHOLECALCIFEROL (VIT D3) 5,000 UNIT TAB PO SCH (10:48)
[2020-12-13] MEDS: ASPIRIN 81 MG TAB CHEW PO SCH (10:48)
[2020-12-13] MEDS: DOCUSATE SODIUM 100 MG CAP PO SCH ×3 (10:49→22:07)
[2020-12-13] MEDS: PANTOPRAZOLE 40 MG INJ IV SCH ×2 (10:49→21:54)
[2020-12-13] MEDS: FREE WATER PO SCH ×3 (10:50→17:53)
[2020-12-13] MEDS: methylPREDNISolone Sod Succinate 125 MG/2 ML INJ IV SCH ×2 (11:15→23:32)
[2020-12-13] MEDS: ZINC SULFATE 220 MG CAP PO SCH (12:57)
[2020-12-13] MEDS: NORepinephrine/NS 8 MG-250 ML 8 MG/250 ML INFUS..BTL IV SCH (13:08)
--- NOTE | 2020-12-13 16:01 | Progress Note ---
Assessment and Plan Acute hypoxemic respiratory failure COVID-19 infection STEMI Bilateral pneumonia Acute respiratory distress syndrome DM II Hypertension Elevated serum inflammatory markers to include LDH, ferritin and D-dimers Anemia - follow H&H - dollow HIT assay - continuing Plavix and ASA re: STEMI - appreciate vascular surgery input - supportive transfusions for serum Hb < 7.0 - continue to wean vasopressors for target MAP > 65 mmHg - aggressive medical therapy for STEMI otherwise per cardiology - continue daily SAT's & SBT assessment as tolerated - continue to wean supplemental oxygen for target O2 sat's > 92% acutely - VAP bundle addressed - continue care as below otherwise; - continue bronchodilators with pulmonary hygiene per RT - continue accuchecks with glycemic control per SSI (While critically ill target blood glucose of 140-180 mg/dL; avoid hypoglycemia) - avoid nephrotoxins, renally dose all medications - continue to avoid benzodiazepine's, reduce the possibility of delirium - completed Anti-infective's per ID rec's - prn analgesia per pain score - Maintenance of sleep-wake cycle, avoid delirium - G.I. & VTE prophylaxis - PT/OT/ROM exercises - mobility protocols for pressure ulcer prophylaxis - Monitor hemodynamics closely - continue other care per attending / other consultants COVID SPECIFIC INTERVENTIONS - Remdesivir as per ID/Pulmonary developed protocols (receiving) - continue systemic steroids for severe COVID-19 infection (Decadron) - follow repeat COVID tests results - zinc and vitamin C supplementation - Monitor inflammatory markers per facility protocol - ferritin, Ddimer, CRP - therapeutic anticoagulation per system Protocol based on d-dimer and clinical considerations (VTE Prophylaxis) - Continue contact and airborne isolation .... Re-evaluate in am & prn CONDITION: CRITICAL PROGNOSIS: GRAVE CODE STATUS: FULL CODE The high probability of a clinically significant, sudden or life-threatening deterioration of the [respiratory, cardiovascular & neurologic] system(s) required my full and direct attention, intervention and personal management. The aggregate critical care time was [33] minutes without overlap. Time includes spent on; [x] Data Review and interpretation [x] Patient assessment and monitoring of vital signs [x] Documentation [x] Medication orders and management Subjective Date of service: 12/13/20 Principal diagnosis: Ac hypoxemic resp failure; COVID-19 infection; Pneumonia; ARDS; DM II; HTN Interval history: Patient is seen today for: Acute hypoxemic respiratory failure; COVID-19 infection; Pneumonia; ARDS; DM II; HTN Seen and examined at bedside; 24hour events reviewed; nursing and respiratory care staff consulted; no adverse overnight events reported to me; resting in bed; remains on MVS; remains with digital ischemia; no gross bleeding; Heparin on hold; oxygenation remains labile with FiO2 at 75% Objective Vital Signs - 12hr 12/13/20 12/13/20 12/13/20 04:15 04:30 04:45 Temperature Pulse Rate 111 H 103 H 103 H Pulse Rate [ From Monitor] Respiratory 20 20 22 Rate Blood Pressure 123/66 110/54 110/56 O2 Sat by Pulse 91 92 92 Oximetry 12/13/20 12/13/20 12/13/20 05:00 05:02 05:15 Temperature Pulse Rate 100 H 102 H 99 H Pulse Rate [ From Monitor] Respiratory 21 21 Rate Blood Pressure 101/54 111/49 110/53 O2 Sat by Pulse 99 95 99 Oximetry 12/13/20 12/13/20 12/13/20 05:30 05:45 06:01 Temperature Pulse Rate 103 H 111 H 120 H Pulse Rate [ From Monitor] Respiratory 18 17 18 Rate Blood Pressure 124/60 124/60 123/64 O2 Sat by Pulse 92 87 83 L Oximetry 12/13/20 12/13/20 12/13/20 06:15 06:31 06:42 Temperature Pulse Rate 124 H 124 H Pulse Rate [ From Monitor] Respiratory 22 18 Rate Blood Pressure 156/69 141/60 O2 Sat by Pulse 79 L 79 L 80 L Oximetry 12/13/20 12/13/20 12/13/20 06:45 06:58 07:01 Temperature Pulse Rate 130 H 133 H 123 H Pulse Rate [ From Monitor] Respiratory 20 23 Rate Blood Pressure 141/60 127/71 127/71 O2 Sat by Pulse 81 L 100 Oximetry 12/13/20 12/13/20 12/13/20 07:15 07:30 07:45 Temperature Pulse Rate 125 H 113 H 109 H Pulse Rate [ From Monitor] Respiratory 23 19 22 Rate Blood Pressure 87/42 104/45 116/47 O2 Sat by Pulse 95 100 100 Oximetry 12/13/20 12/13/20 12/13/20 08:00 08:15 08:30 Temperature 99.1 F Pulse Rate 102 H 103 H 98 H Pulse Rate [ 102 H From Monitor] Respiratory 22 24 22 Rate Blood Pressure 91/43 100/50 91/49 O2 Sat by Pulse 100 100 100 Oximetry 12/13/20 12/13/20 12/13/20 08:45 09:00 09:15 Temperature Pulse Rate 96 H 94 H 100 H Pulse Rate [ From Monitor] Respiratory 24 24 24 Rate Blood Pressure 98/49 91/43 91/43 O2 Sat by Pulse 100 100 100 Oximetry 12/13/20 12/13/20 12/13/20 09:30 09:45 10:00 Temperature Pulse Rate 110 H 110 H 116 H Pulse Rate [ From Monitor] Respiratory 19 18 14 Rate Blood Pressure 134/62 116/68 111/72 O2 Sat by Pulse 92 94 89 Oximetry 12/13/20 12/13/20 12/13/20 10:15 10:30 10:45 Temperature Pulse Rate 122 H 118 H 114 H Pulse Rate [ From Monitor] Respiratory 15 17 24 Rate Blood Pressure 133/72 104/63 111/49 O2 Sat by Pulse 84 92 100 Oximetry 12/13/20 12/13/20 12/13/20 10:49 11:00 11:01 Temperature 100.6 F H Pulse Rate 115 H 117 H Pulse Rate [ From Monitor] Respiratory 15 Rate Blood Pressure 114/49 122/56 O2 Sat by Pulse 93 Oximetry 12/13/20 12/13/20 12/13/20 11:15 11:30 11:45 Temperature Pulse Rate 119 H 114 H 111 H Pulse Rate [ From Monitor] Respiratory 22 12 22 Rate Blood Pressure 122/56 105/50 119/56 O2 Sat by Pulse 87 91 90 Oximetry 12/13/20 12/13/20 12/13/20 12:00 12:15 12:30 Temperature 100.4 F H Pulse Rate 114 H 107 H 111 H Pulse Rate [ 114 H From Monitor] Respiratory 27 H 28 H 22 Rate Blood Pressure 109/68 109/68 85/46 O2 Sat by Pulse 93 100 91 Oximetry 12/13/20 12/13/20 12/13/20 12:45 13:00 13:15 Temperature Pulse Rate 103 H 99 H 111 H Pulse Rate [ From Monitor] Respiratory 23 27 H 17 Rate Blood Pressure 98/61 98/51 98/51 O2 Sat by Pulse 98 100 89 Oximetry 12/13/20 12/13/20 12/13/20 13:30 13:45 14:00 Temperature Pulse Rate 110 H 114 H 109 H Pulse Rate [ From Monitor] Respiratory 24 21 21 Rate Blood Pressure 120/56 127/63 120/54 O2 Sat by Pulse 84 89 88 Oximetry 12/13/20 12/13/20 12/13/20 14:15 14:30 14:45 Temperature Pulse Rate 115 H 114 H 103 H Pulse Rate [ From Monitor] Respiratory 17 20 22 Rate Blood Pressure 120/56 136/79 140/64 O2 Sat by Pulse 88 83 L 93 Oximetry 12/13/20 15:00 Temperature Pulse Rate 105 H Pulse Rate [ From Monitor] Respiratory 27 H Rate Blood Pressure 103/58 O2 Sat by Pulse 99 Oximetry Constitutional: appears uncomfortable, other (elderly female with mildly increas ed respiratory effort at rest on MVS) Eyes: non-icteric ENT: oropharynx moist, other (ETT 23 cm JENNIFER) Neck: supple, no lymphadenopathy, no JVD Effort: mildly labored Ascultation: Bilateral: rhonchi Percussion: Bilateral: not dull Cardiovascular: regular rate and rhythm Gastrointestinal: normoactive bowel sounds, soft, non-tender, non-distended Integumentary: normal Extremities: no cyanosis, no edema, pulses normal, other (+ digital ischemia and cyanosis to hands and feet) Neurologic: non-focal exam, pupils equal and round, unable to assess, other (sedated) Psychiatric: other (unable to assess re: AMS) CBC and BMP: 12/14/20 06:55 12/14/20 06:55 ABG, PT/INR, D-dimer: ABG ABG pH 7.361 (7.320-7.450) 12/13/20 04:00 POC ABG pCO2 45.9 mmHg (32.0-48.0) 12/13/20 04:00 POC ABG pO2 56.6 mmHg (83-108) L 12/13/20 04:00 POC ABG HCO3 25.4 12/13/20 04:00 ABG O2 Saturation 87.1 (0-100) 12/13/20 04:00 PT/INR, D-dimer PT 17.3 Sec. (12.2-14.9) H 12/11/20 15:45 INR 1.35 (0.87-1.13) H 12/11/20 15:45 D-Dimer > 40409 ng/mlDDU (0-234) H 12/12/20 08:10 Abnormal lab findings: Abnormal Labs 12/02/20 12/02/20 12/02/20 03:58 03:58 03:58 WBC RBC 3.57 L Hgb 8.9 L Hct 27.2 L MCV 76 L MCH 25 L RDW 17.6 H Plt Count Lymph % (Auto) 6.7 L Lymph # (Auto) 0.3 L Seg Neutrophils % 87.7 H Seg Neuts % (Manual) Lymphocytes % (Manual) Nucleated RBC % Seg Neutrophils # Man Lymphocytes # (Manual) PT INR APTT Fibrinogen D-Dimer 1559.33 H Heparin Anti-Xa Level ABG pH POC ABG pCO2 POC ABG pO2 ABG Hemoglobin ABG Oxyhemoglobin ABG Sodium ABG Potassium ABG Chloride ABG Glucose Carboxyhemoglobin Sodium 130 L Potassium Chloride 90.0 L Carbon Dioxide BUN 20 H Creatinine Glucose 346 H POC Glucose Hemoglobin A1c Lactic Acid Calcium Phosphorus Magnesium 2.40 H Ferritin AST 43 H Alkaline Phosphatase Lactate Dehydrogenase 582 H Total Creatine Kinase CK-MB (CK-2) CK-MB (CK-2) Rel Index Troponin T C-Reactive Protein 34.20 H NT-Pro-B Natriuret Pep Total Protein Albumin 3.1 L Triglycerides LDL Cholesterol Direct HDL Cholesterol Arterial Blood Glucose Arterial Blood Ionized Calcium Coronavirus (PCR) Crossmatch 12/02/20 12/02/20 12/02/20 03:58 06:15 07:37 WBC RBC Hgb Hct MCV MCH RDW Plt Count Lymph % (Auto) Lymph # (Auto) Seg Neutrophils % Seg Neuts % (Manual) Lymphocytes % (Manual) Nucleated RBC % Seg Neutrophils # Man Lymphocytes # (Manual) PT INR APTT Fibrinogen D-Dimer Heparin Anti-Xa Level ABG pH POC ABG pCO2 POC ABG pO2 ABG Hemoglobin ABG Oxyhemoglobin ABG Sodium ABG Potassium ABG Chloride ABG Glucose Carboxyhemoglobin Sodium Potassium Chloride Carbon Dioxide BUN Creatinine Glucose POC Glucose 339 H Hemoglobin A1c 9.5 H Lactic Acid Calcium Phosphorus Magnesium Ferritin 497.6 H AST Alkaline Phosphatase Lactate Dehydrogenase Total Creatine Kinase CK-MB (CK-2) CK-MB (CK-2) Rel Index Troponin T C-Reactive Protein NT-Pro-B Natriuret Pep Total Protein Albumin Triglycerides LDL Cholesterol Direct HDL Cholesterol Arterial Blood Glucose Arterial Blood Ionized Calcium Coronavirus (PCR) Crossmatch 12/02/20 12/02/20 12/02/20 08:15 11:52 13:29 WBC RBC Hgb 9.7 L Hct MCV MCH RDW Plt Count Lymph % (Auto) Lymph # (Auto) Seg Neutrophils % Seg Neuts % (Manual) Lymphocytes % (Manual) Nucleated RBC % Seg Neutrophils # Man Lymphocytes # (Manual) PT INR APTT Fibrinogen D-Dimer Heparin Anti-Xa Level ABG pH POC ABG pCO2 POC ABG pO2 ABG Hemoglobin ABG Oxyhemoglobin ABG Sodium ABG Potassium ABG Chloride ABG Glucose Carboxyhemoglobin Sodium Potassium Chloride Carbon Dioxide BUN Creatinine Glucose POC Glucose 305 H Hemoglobin A1c Lactic Acid Calcium Phosphorus Magnesium Ferritin AST Alkaline Phosphatase Lactate Dehydrogenase Total Creatine Kinase CK-MB (CK-2) CK-MB (CK-2) Rel Index Troponin T C-Reactive Protein NT-Pro-B Natriuret Pep Total Protein Albumin Triglycerides LDL Cholesterol Direct HDL Cholesterol Arterial Blood Glucose Arterial Blood Ionized Calcium Coronavirus (PCR) Positive A Crossmatch 12/02/20 12/02/20 12/02/20 16:53 22:39 23:39 WBC RBC Hgb Hct MCV MCH RDW Plt Count Lymph % (Auto) Lymph # (Auto) Seg Neutrophils % Seg Neuts % (Manual) Lymphocytes % (Manual) Nucleated RBC % Seg Neutrophils # Man Lymphocytes # (Manual) PT INR APTT Fibrinogen D-Dimer Heparin Anti-Xa Level ABG pH POC ABG pCO2 POC ABG pO2 ABG Hemoglobin ABG Oxyhemoglobin ABG Sodium ABG Potassium ABG Chloride ABG Glucose Carboxyhemoglobin Sodium 131 L Potassium Chloride 93.8 L Carbon Dioxide BUN 22 H Creatinine Glucose 301 H POC Glucose 281 H 290 H Hemoglobin A1c Lactic Acid Calcium Phosphorus Magnesium Ferritin AST Alkaline Phosphatase Lactate Dehydrogenase Total Creatine Kinase CK-MB (CK-2) CK-MB (CK-2) Rel Index Troponin T C-Reactive Protein NT-Pro-B Natriuret Pep Total Protein 6.2 L Albumin 2.8 L Triglycerides LDL Cholesterol Direct HDL Cholesterol Arterial Blood Glucose Arterial Blood Ionized Calcium Coronavirus (PCR) Crossmatch 12/03/20 12/03/20 12/03/20 03:48 03:48 08:59 WBC RBC 3.46 L Hgb 8.6 L Hct 26.5 L MCV 77 L MCH 25 L RDW 18.2 H Plt Count Lymph % (Auto) Lymph # (Auto) Seg Neutrophils % Seg Neuts % (Manual) 93.0 H Lymphocytes % (Manual) 3.0 L Nucleated RBC % Seg Neutrophils # Man Lymphocytes # (Manual) 0.2 L PT INR APTT Fibrinogen D-Dimer Heparin Anti-Xa Level ABG pH POC ABG pCO2 POC ABG pO2 ABG Hemoglobin ABG Oxyhemoglobin ABG Sodium ABG Potassium ABG Chloride ABG Glucose Carboxyhemoglobin Sodium 131 L Potassium Chloride 92.5 L Carbon Dioxide BUN 22 H Creatinine Glucose 279 H POC Glucose 258 H Hemoglobin A1c Lactic Acid Calcium 8.2 L Phosphorus Magnesium Ferritin AST Alkaline Phosphatase Lactate Dehydrogenase Total Creatine Kinase CK-MB (CK-2) CK-MB (CK-2) Rel Index Troponin T C-Reactive Protein NT-Pro-B Natriuret Pep Total Protein 5.6 L Albumin 2.8 L Triglycerides LDL Cholesterol Direct HDL Cholesterol Arterial Blood Glucose Arterial Blood Ionized Calcium Coronavirus (PCR) Crossmatch 12/03/20 12/03/20 12/03/20 12:45 15:57 17:01 WBC RBC Hgb Hct MCV MCH RDW Plt Count Lymph % (Auto) Lymph # (Auto) Seg Neutrophils % Seg Neuts % (Manual) Lymphocytes % (Manual) Nucleated RBC % Seg Neutrophils # Man Lymphocytes # (Manual) PT INR APTT Fibrinogen D-Dimer Heparin Anti-Xa Level ABG pH 7.527 H POC ABG pCO2 POC ABG pO2 50.4 L ABG Hemoglobin ABG Oxyhemoglobin ABG Sodium 129.8 L ABG Potassium ABG Chloride 95.0 L ABG Glucose 394 H Carboxyhemoglobin Sodium Potassium Chloride Carbon Dioxide BUN Creatinine Glucose POC Glucose 349 H 359 H Hemoglobin A1c Lactic Acid Calcium Phosphorus Magnesium Ferritin AST Alkaline Phosphatase Lactate Dehydrogenase Total Creatine Kinase CK-MB (CK-2) CK-MB (CK-2) Rel Index Troponin T C-Reactive Protein NT-Pro-B Natriuret Pep Total Protein Albumin Triglycerides LDL Cholesterol Direct HDL Cholesterol Arterial Blood Glucose 394 H Arterial Blood Ionized Calcium Coronavirus (PCR) Crossmatch 12/03/20 12/04/20 12/04/20 21:16 04:27 06:49 WBC RBC Hgb Hct MCV MCH RDW Plt Count Lymph % (Auto) Lymph # (Auto) Seg Neutrophils % Seg Neuts % (Manual) Lymphocytes % (Manual) Nucleated RBC % Seg Neutrophils # Man Lymphocytes # (Manual) PT INR APTT Fibrinogen D-Dimer Heparin Anti-Xa Level ABG pH 7.530 H POC ABG pCO2 POC ABG pO2 37.6 L ABG Hemoglobin 9.6 L ABG Oxyhemoglobin 72.5 L ABG Sodium 132.3 L ABG Potassium ABG Chloride ABG Glucose 180 H Carboxyhemoglobin 0.4 L Sodium 136 L Potassium Chloride 97.3 L Carbon Dioxide BUN 23 H Creatinine Glucose 166 H POC Glucose 295 H Hemoglobin A1c Lactic Acid Calcium Phosphorus Magnesium Ferritin AST Alkaline Phosphatase Lactate Dehydrogenase Total Creatine Kinase CK-MB (CK-2) CK-MB (CK-2) Rel Index Troponin T C-Reactive Protein NT-Pro-B Natriuret Pep Total Protein 5.7 L Albumin 2.6 L Triglycerides LDL Cholesterol Direct HDL Cholesterol Arterial Blood Glucose 180 H Arterial Blood Ionized Calcium Coronavirus (PCR) Crossmatch 12/04/20 12/04/20 12/04/20 07:49 11:37 16:22 WBC RBC Hgb Hct MCV MCH RDW Plt Count Lymph % (Auto) Lymph # (Auto) Seg Neutrophils % Seg Neuts % (Manual) Lymphocytes % (Manual) Nucleated RBC % Seg Neutrophils # Man Lymphocytes # (Manual) PT INR APTT Fibrinogen D-Dimer Heparin Anti-Xa Level ABG pH POC ABG pCO2 POC ABG pO2 ABG Hemoglobin ABG Oxyhemoglobin ABG Sodium ABG Potassium ABG Chloride ABG Glucose Carboxyhemoglobin Sodium Potassium Chloride Carbon Dioxide BUN Creatinine Glucose POC Glucose 180 H 213 H 177 H Hemoglobin A1c Lactic Acid Calcium Phosphorus Magnesium Ferritin AST Alkaline Phosphatase Lactate Dehydrogenase Total Creatine Kinase CK-MB (CK-2) CK-MB (CK-2) Rel Index Troponin T C-Reactive Protein NT-Pro-B Natriuret Pep Total Protein Albumin Triglycerides LDL Cholesterol Direct HDL Cholesterol Arterial Blood Glucose Arterial Blood Ionized Calcium Coronavirus (PCR) Crossmatch 12/04/20 12/04/20 12/05/20 22:21 23:12 05:16 WBC RBC Hgb Hct MCV MCH RDW Plt Count Lymph % (Auto) Lymph # (Auto) Seg Neutrophils % Seg Neuts % (Manual) Lymphocytes % (Manual) Nucleated RBC % Seg Neutrophils # Man Lymphocytes # (Manual) PT INR APTT Fibrinogen D-Dimer Heparin Anti-Xa Level ABG pH 7.494 H POC ABG pCO2 POC ABG pO2 56.3 L ABG Hemoglobin 8.6 L ABG Oxyhemoglobin 88.3 L ABG Sodium 131.8 L ABG Potassium ABG Chloride ABG Glucose 205 H Carboxyhemoglobin 0.3 L Sodium Potassium Chloride Carbon Dioxide BUN 19 H Creatinine Glucose 64 L POC Glucose 207 H Hemoglobin A1c Lactic Acid Calcium Phosphorus Magnesium Ferritin AST Alkaline Phosphatase Lactate Dehydrogenase Total Creatine Kinase CK-MB (CK-2) CK-MB (CK-2) Rel Index Troponin T C-Reactive Protein NT-Pro-B Natriuret Pep Total Protein 6.0 L Albumin 2.8 L Triglycerides LDL Cholesterol Direct HDL Cholesterol Arterial Blood Glucose 205 H Arterial Blood Ionized Calcium Coronavirus (PCR) Crossmatch 12/05/20 12/05/20 12/05/20 08:01 09:07 12:31 WBC RBC Hgb Hct MCV MCH RDW Plt Count Lymph % (Auto) Lymph # (Auto) Seg Neutrophils % Seg Neuts % (Manual) Lymphocytes % (Manual) Nucleated RBC % Seg Neutrophils # Man Lymphocytes # (Manual) PT INR APTT Fibrinogen D-Dimer Heparin Anti-Xa Level ABG pH POC ABG pCO2 POC ABG pO2 ABG Hemoglobin ABG Oxyhemoglobin ABG Sodium ABG Potassium ABG Chloride ABG Glucose Carboxyhemoglobin Sodium Potassium Chloride Carbon Dioxide BUN Creatinine Glucose POC Glucose 49 L 157 H 113 H Hemoglobin A1c Lactic Acid Calcium Phosphorus Magnesium Ferritin AST Alkaline Phosphatase Lactate Dehydrogenase Total Creatine Kinase CK-MB (CK-2) CK-MB (CK-2) Rel Index Troponin T C-Reactive Protein NT-Pro-B Natriuret Pep Total Protein Albumin Triglycerides LDL Cholesterol Direct HDL Cholesterol Arterial Blood Glucose Arterial Blood Ionized Calcium Coronavirus (PCR) Crossmatch 12/05/20 12/06/20 12/06/20 16:57 07:51 12:07 WBC RBC Hgb Hct MCV MCH RDW Plt Count Lymph % (Auto) Lymph # (Auto) Seg Neutrophils % Seg Neuts % (Manual) Lymphocytes % (Manual) Nucleated RBC % Seg Neutrophils # Man Lymphocytes # (Manual) PT INR APTT Fibrinogen D-Dimer Heparin Anti-Xa Level ABG pH POC ABG pCO2 POC ABG pO2 ABG Hemoglobin ABG Oxyhemoglobin ABG Sodium ABG Potassium ABG Chloride ABG Glucose Carboxyhemoglobin Sodium Potassium Chloride Carbon Dioxide BUN Creatinine Glucose POC Glucose 223 H 110 H 229 H Hemoglobin A1c Lactic Acid Calcium Phosphorus Magnesium Ferritin AST Alkaline Phosphatase Lactate Dehydrogenase Total Creatine Kinase CK-MB (CK-2) CK-MB (CK-2) Rel Index Troponin T C-Reactive Protein NT-Pro-B Natriuret Pep Total Protein Albumin Triglycerides LDL Cholesterol Direct HDL Cholesterol Arterial Blood Glucose Arterial Blood Ionized Calcium Coronavirus (PCR) Crossmatch 12/06/20 12/06/20 12/06/20 14:56 16:00 18:53 WBC RBC Hgb 9.6 L Hct MCV MCH RDW Plt Count Lymph % (Auto) Lymph # (Auto) Seg Neutrophils % Seg Neuts % (Manual) Lymphocytes % (Manual) Nucleated RBC % Seg Neutrophils # Man Lymphocytes # (Manual) PT INR APTT Fibrinogen D-Dimer > 82237 H Heparin Anti-Xa Level ABG pH POC ABG pCO2 POC ABG pO2 ABG Hemoglobin ABG Oxyhemoglobin ABG Sodium ABG Potassium ABG Chloride ABG Glucose Carboxyhemoglobin Sodium Potassium Chloride Carbon Dioxide BUN Creatinine Glucose POC Glucose 235 H Hemoglobin A1c Lactic Acid Calcium Phosphorus Magnesium Ferritin AST Alkaline Phosphatase Lactate Dehydrogenase Total Creatine Kinase CK-MB (CK-2) CK-MB (CK-2) Rel Index Troponin T C-Reactive Protein NT-Pro-B Natriuret Pep Total Protein Albumin Triglycerides LDL Cholesterol Direct HDL Cholesterol Arterial Blood Glucose Arterial Blood Ionized Calcium Coronavirus (PCR) Crossmatch 12/06/20 12/06/20 12/07/20 18:53 23:15 07:03 WBC RBC Hgb Hct MCV MCH RDW Plt Count Lymph % (Auto) Lymph # (Auto) Seg Neutrophils % Seg Neuts % (Manual) Lymphocytes % (Manual) Nucleated RBC % Seg Neutrophils # Man Lymphocytes # (Manual) PT 17.4 H INR 1.37 H APTT Fibrinogen D-Dimer Heparin Anti-Xa Level ABG pH POC ABG pCO2 POC ABG pO2 ABG Hemoglobin ABG Oxyhemoglobin ABG Sodium ABG Potassium ABG Chloride ABG Glucose Carboxyhemoglobin Sodium Potassium Chloride Carbon Dioxide BUN 23 H Creatinine Glucose 62 L POC Glucose 170 H Hemoglobin A1c Lactic Acid Calcium Phosphorus Magnesium Ferritin AST Alkaline Phosphatase Lactate Dehydrogenase Total Creatine Kinase CK-MB (CK-2) CK-MB (CK-2) Rel Index Troponin T C-Reactive Protein NT-Pro-B Natriuret Pep Total Protein Albumin Triglycerides LDL Cholesterol Direct HDL Cholesterol Arterial Blood Glucose Arterial Blood Ionized Calcium Coronavirus (PCR) Crossmatch 12/07/20 12/07/20 12/07/20 07:03 07:28 17:45 WBC RBC Hgb Hct MCV MCH RDW Plt Count Lymph % (Auto) Lymph # (Auto) Seg Neutrophils % Seg Neuts % (Manual) Lymphocytes % (Manual) Nucleated RBC % Seg Neutrophils # Man Lymphocytes # (Manual) PT INR APTT Fibrinogen D-Dimer Heparin Anti-Xa Level 0.85 H ABG pH POC ABG pCO2 POC ABG pO2 ABG Hemoglobin ABG Oxyhemoglobin ABG Sodium ABG Potassium ABG Chloride ABG Glucose Carboxyhemoglobin Sodium Potassium Chloride Carbon Dioxide BUN Creatinine Glucose POC Glucose 54 L 196 H Hemoglobin A1c Lactic Acid Calcium Phosphorus Magnesium Ferritin AST Alkaline Phosphatase Lactate Dehydrogenase Total Creatine Kinase CK-MB (CK-2) CK-MB (CK-2) Rel Index Troponin T C-Reactive Protein NT-Pro-B Natriuret Pep Total Protein Albumin Triglycerides LDL Cholesterol Direct HDL Cholesterol Arterial Blood Glucose Arterial Blood Ionized Calcium Coronavirus (PCR) Crossmatch 12/07/20 12/08/20 12/08/20 21:26 13:11 13:25 WBC RBC Hgb Hct MCV MCH RDW Plt Count Lymph % (Auto) Lymph # (Auto) Seg Neutrophils % Seg Neuts % (Manual) Lymphocytes % (Manual) Nucleated RBC % Seg Neutrophils # Man Lymphocytes # (Manual) PT INR APTT Fibrinogen D-Dimer Heparin Anti-Xa Level ABG pH POC ABG pCO2 POC ABG pO2 ABG Hemoglobin ABG Oxyhemoglobin ABG Sodium ABG Potassium ABG Chloride ABG Glucose Carboxyhemoglobin Sodium Potassium Chloride Carbon Dioxide BUN Creatinine Glucose POC Glucose 165 H 62 L Hemoglobin A1c Lactic Acid Calcium Phosphorus Magnesium Ferritin AST Alkaline Phosphatase Lactate Dehydrogenase Total Creatine Kinase 520 H CK-MB (CK-2) 33.2 H CK-MB (CK-2) Rel Index 6.3 H Troponin T 0.646 H* C-Reactive Protein NT-Pro-B Natriuret Pep Total Protein Albumin Triglycerides 181 H LDL Cholesterol Direct 30 L HDL Cholesterol 35 L Arterial Blood Glucose Arterial Blood Ionized Calcium Coronavirus (PCR) Crossmatch 12/08/20 12/08/20 12/08/20 15:36 18:05 20:15 WBC RBC Hgb Hct MCV MCH RDW Plt Count Lymph % (Auto) Lymph # (Auto) Seg Neutrophils % Seg Neuts % (Manual) Lymphocytes % (Manual) Nucleated RBC % Seg Neutrophils # Man Lymphocytes # (Manual) PT INR APTT Fibrinogen D-Dimer Heparin Anti-Xa Level ABG pH 7.117 L POC ABG pCO2 61.7 H POC ABG pO2 39.7 L ABG Hemoglobin 9.0 L ABG Oxyhemoglobin 46.0 L ABG Sodium 135.7 L ABG Potassium 4.6 H ABG Chloride ABG Glucose 235 H Carboxyhemoglobin Sodium Potassium Chloride Carbon Dioxide BUN Creatinine Glucose POC Glucose 163 H Hemoglobin A1c Lactic Acid Calcium Phosphorus Magnesium Ferritin AST Alkaline Phosphatase Lactate Dehydrogenase Total Creatine Kinase 521 H CK-MB (CK-2) 31.5 H CK-MB (CK-2) Rel Index 6.0 H Troponin T 0.648 H* C-Reactive Protein NT-Pro-B Natriuret Pep 1573 H Total Protein Albumin Triglycerides LDL Cholesterol Direct HDL Cholesterol Arterial Blood Glucose 235 H Arterial Blood Ionized Calcium Coronavirus (PCR) Crossmatch 12/08/20 12/08/20 12/08/20 20:15 20:15 20:15 WBC 24.0 H RBC 3.35 L Hgb 8.1 L Hct 26.0 L D MCV 78 L MCH 24 L RDW 18.5 H Plt Count Lymph % (Auto) Lymph # (Auto) Seg Neutrophils % Seg Neuts % (Manual) 91.0 H Lymphocytes % (Manual) 5.0 L Nucleated RBC % Seg Neutrophils # Man 21.8 H Lymphocytes # (Manual) PT INR APTT 62.9 H* Fibrinogen D-Dimer > 95399 H Heparin Anti-Xa Level ABG pH POC ABG pCO2 POC ABG pO2 ABG Hemoglobin ABG Oxyhemoglobin ABG Sodium ABG Potassium ABG Chloride ABG Glucose Carboxyhemoglobin Sodium Potassium 5.1 H D Chloride Carbon Dioxide BUN 27 H Creatinine Glucose 186 H POC Glucose Hemoglobin A1c Lactic Acid Calcium 7.8 L Phosphorus 5.50 H Magnesium 2.40 H Ferritin AST 126 H Alkaline Phosphatase 298 H Lactate Dehydrogenase 2677 H Total Creatine Kinase CK-MB (CK-2) CK-MB (CK-2) Rel Index Troponin T C-Reactive Protein NT-Pro-B Natriuret Pep Total Protein 4.9 L Albumin 2.6 L Triglycerides LDL Cholesterol Direct HDL Cholesterol Arterial Blood Glucose Arterial Blood Ionized Calcium Coronavirus (PCR) Crossmatch 12/08/20 12/08/20 12/09/20 21:00 22:03 06:00 WBC RBC Hgb Hct MCV MCH RDW Plt Count Lymph % (Auto) Lymph # (Auto) Seg Neutrophils % Seg Neuts % (Manual) Lymphocytes % (Manual) Nucleated RBC % Seg Neutrophils # Man Lymphocytes # (Manual) PT INR APTT Fibrinogen D-Dimer Heparin Anti-Xa Level 0.85 H ABG pH 7.318 L POC ABG pCO2 51.9 H POC ABG pO2 74.6 L ABG Hemoglobin 8.9 L ABG Oxyhemoglobin 90.8 L ABG Sodium ABG Potassium 4.9 H ABG Chloride ABG Glucose 141 H Carboxyhemoglobin Sodium Potassium Chloride Carbon Dioxide BUN Creatinine Glucose POC Glucose 163 H Hemoglobin A1c Lactic Acid Calcium Phosphorus Magnesium Ferritin AST Alkaline Phosphatase Lactate Dehydrogenase Total Creatine Kinase CK-MB (CK-2) CK-MB (CK-2) Rel Index Troponin T C-Reactive Protein NT-Pro-B Natriuret Pep Total Protein Albumin Triglycerides LDL Cholesterol Direct HDL Cholesterol Arterial Blood Glucose 141 H Arterial Blood Ionized Calcium 4.5 L Coronavirus (PCR) Crossmatch 12/09/20 12/09/20 12/09/20 08:13 11:53 13:08 WBC RBC Hgb Hct MCV MCH RDW Plt Count Lymph % (Auto) Lymph # (Auto) Seg Neutrophils % Seg Neuts % (Manual) Lymphocytes % (Manual) Nucleated RBC % Seg Neutrophils # Man Lymphocytes # (Manual) PT INR APTT Fibrinogen D-Dimer Heparin Anti-Xa Level 0.94 H ABG pH POC ABG pCO2 50.7 H POC ABG pO2 156.4 H ABG Hemoglobin 8.7 L ABG Oxyhemoglobin ABG Sodium 134.9 L ABG Potassium 5.4 H ABG Chloride ABG Glucose 140 H Carboxyhemoglobin Sodium Potassium Chloride Carbon Dioxide BUN Creatinine Glucose POC Glucose 127 H Hemoglobin A1c Lactic Acid Calcium Phosphorus Magnesium Ferritin AST Alkaline Phosphatase Lactate Dehydrogenase Total Creatine Kinase CK-MB (CK-2) CK-MB (CK-2) Rel Index Troponin T C-Reactive Protein NT-Pro-B Natriuret Pep Total Protein Albumin Triglycerides LDL Cholesterol Direct HDL Cholesterol Arterial Blood Glucose 140 H Arterial Blood Ionized Calcium 4.2 L Coronavirus (PCR) Crossmatch 12/09/20 12/09/20 12/09/20 13:08 13:08 13:08 WBC 20.8 H RBC 3.35 L Hgb 8.3 L Hct 26.2 L MCV 78 L MCH 25 L RDW 19.5 H Plt Count Lymph % (Auto) Lymph # (Auto) Seg Neutrophils % Seg Neuts % (Manual) Lymphocytes % (Manual) Nucleated RBC % Seg Neutrophils # Man Lymphocytes # (Manual) PT 15.2 H INR 1.15 H APTT 84.5 H* Fibrinogen D-Dimer 4051.67 H Heparin Anti-Xa Level ABG pH POC ABG pCO2 POC ABG pO2 ABG Hemoglobin ABG Oxyhemoglobin ABG Sodium ABG Potassium ABG Chloride ABG Glucose Carboxyhemoglobin Sodium Potassium Chloride Carbon Dioxide BUN 34 H Creatinine 1.4 H Glucose 156 H POC Glucose Hemoglobin A1c Lactic Acid Calcium 8.1 L Phosphorus Magnesium Ferritin AST 97 H Alkaline Phosphatase 241 H Lactate Dehydrogenase Total Creatine Kinase CK-MB (CK-2) CK-MB (CK-2) Rel Index Troponin T C-Reactive Protein NT-Pro-B Natriuret Pep Total Protein 5.2 L Albumin 2.7 L Triglycerides LDL Cholesterol Direct HDL Cholesterol Arterial Blood Glucose Arterial Blood Ionized Calcium Coronavirus (PCR) Crossmatch 12/09/20 12/09/20 12/09/20 13:08 13:08 13:08 WBC RBC Hgb Hct MCV MCH RDW Plt Count Lymph % (Auto) Lymph # (Auto) Seg Neutrophils % Seg Neuts % (Manual) Lymphocytes % (Manual) Nucleated RBC % Seg Neutrophils # Man Lymphocytes # (Manual) PT INR APTT Fibrinogen D-Dimer Heparin Anti-Xa Level ABG pH POC ABG pCO2 POC ABG pO2 ABG Hemoglobin ABG Oxyhemoglobin ABG Sodium ABG Potassium ABG Chloride ABG Glucose Carboxyhemoglobin Sodium Potassium Chloride Carbon Dioxide BUN Creatinine Glucose POC Glucose Hemoglobin A1c Lactic Acid 2.50 H* Calcium Phosphorus 4.70 H Magnesium 2.70 H Ferritin 472.6 H AST Alkaline Phosphatase Lactate Dehydrogenase 2146 H Total Creatine Kinase CK-MB (CK-2) CK-MB (CK-2) Rel Index Troponin T 0.487 H* D C-Reactive Protein 8.70 H NT-Pro-B Natriuret Pep Total Protein Albumin Triglycerides LDL Cholesterol Direct HDL Cholesterol Arterial Blood Glucose Arterial Blood Ionized Calcium Coronavirus (PCR) Crossmatch 12/09/20 12/09/20 12/09/20 13:08 17:17 23:43 WBC RBC Hgb Hct MCV MCH RDW Plt Count Lymph % (Auto) Lymph # (Auto) Seg Neutrophils % Seg Neuts % (Manual) Lymphocytes % (Manual) Nucleated RBC % Seg Neutrophils # Man Lymphocytes # (Manual) PT INR APTT Fibrinogen D-Dimer Heparin Anti-Xa Level ABG pH POC ABG pCO2 POC ABG pO2 ABG Hemoglobin ABG Oxyhemoglobin ABG Sodium ABG Potassium ABG Chloride ABG Glucose Carboxyhemoglobin Sodium Potassium Chloride Carbon Dioxide BUN Creatinine Glucose POC Glucose 179 H 144 H Hemoglobin A1c Lactic Acid Calcium Phosphorus Magnesium Ferritin AST Alkaline Phosphatase Lactate Dehydrogenase Total Creatine Kinase CK-MB (CK-2) CK-MB (CK-2) Rel Index Troponin T C-Reactive Protein NT-Pro-B Natriuret Pep 2396 H Total Protein Albumin Triglycerides LDL Cholesterol Direct HDL Cholesterol Arterial Blood Glucose Arterial Blood Ionized Calcium Coronavirus (PCR) Crossmatch 12/10/20 12/10/20 12/10/20 02:39 03:08 04:10 WBC 19.2 H RBC 2.76 L Hgb 6.7 L Hct 21.7 L MCV MCH 24 L RDW 19.3 H Plt Count Lymph % (Auto) Lymph # (Auto) Seg Neutrophils % Seg Neuts % (Manual) 95.0 H Lymphocytes % (Manual) 1.0 L Nucleated RBC % 3.0 H Seg Neutrophils # Man 18.2 H Lymphocytes # (Manual) 0.2 L PT INR APTT Fibrinogen D-Dimer Heparin Anti-Xa Level ABG pH POC ABG pCO2 POC ABG pO2 ABG Hemoglobin 6.3 L ABG Oxyhemoglobin 93.8 L ABG Sodium ABG Potassium ABG Chloride 108.0 H ABG Glucose 237 H Carboxyhemoglobin Sodium Potassium Chloride Carbon Dioxide BUN Creatinine Glucose POC Glucose Hemoglobin A1c Lactic Acid Calcium Phosphorus Magnesium Ferritin AST Alkaline Phosphatase Lactate Dehydrogenase Total Creatine Kinase CK-MB (CK-2) CK-MB (CK-2) Rel Index Troponin T C-Reactive Protein NT-Pro-B Natriuret Pep Total Protein Albumin Triglycerides LDL Cholesterol Direct HDL Cholesterol Arterial Blood Glucose 237 H Arterial Blood Ionized Calcium 4.3 L Coronavirus (PCR) Crossmatch See Detail 12/10/20 12/10/20 12/10/20 05:42 07:43 11:47 WBC RBC Hgb Hct MCV MCH RDW Plt Count Lymph % (Auto) Lymph # (Auto) Seg Neutrophils % Seg Neuts % (Manual) Lymphocytes % (Manual) Nucleated RBC % Seg Neutrophils # Man Lymphocytes # (Manual) PT INR APTT Fibrinogen D-Dimer Heparin Anti-Xa Level ABG pH POC ABG pCO2 POC ABG pO2 ABG Hemoglobin ABG Oxyhemoglobin ABG Sodium ABG Potassium ABG Chloride ABG Glucose Carboxyhemoglobin Sodium Potassium Chloride Carbon Dioxide BUN 39 H Creatinine 1.5 H Glucose 218 H POC Glucose 209 H 208 H Hemoglobin A1c Lactic Acid Calcium 7.9 L Phosphorus Magnesium Ferritin AST Alkaline Phosphatase Lactate Dehydrogenase Total Creatine Kinase CK-MB (CK-2) CK-MB (CK-2) Rel Index Troponin T C-Reactive Protein NT-Pro-B Natriuret Pep Total Protein Albumin Triglycerides LDL Cholesterol Direct HDL Cholesterol Arterial Blood Glucose Arterial Blood Ionized Calcium Coronavirus (PCR) Crossmatch 12/10/20 12/10/20 12/10/20 13:30 17:26 21:32 WBC RBC Hgb 7.8 L Hct 24.0 L MCV MCH RDW Plt Count Lymph % (Auto) Lymph # (Auto) Seg Neutrophils % Seg Neuts % (Manual) Lymphocytes % (Manual) Nucleated RBC % Seg Neutrophils # Man Lymphocytes # (Manual) PT INR APTT Fibrinogen D-Dimer Heparin Anti-Xa Level ABG pH POC ABG pCO2 POC ABG pO2 ABG Hemoglobin ABG Oxyhemoglobin ABG Sodium ABG Potassium ABG Chloride ABG Glucose Carboxyhemoglobin Sodium Potassium Chloride Carbon Dioxide BUN Creatinine Glucose POC Glucose 184 H 135 H Hemoglobin A1c Lactic Acid Calcium Phosphorus Magnesium Ferritin AST Alkaline Phosphatase Lactate Dehydrogenase Total Creatine Kinase CK-MB (CK-2) CK-MB (CK-2) Rel Index Troponin T C-Reactive Protein NT-Pro-B Natriuret Pep Total Protein Albumin Triglycerides LDL Cholesterol Direct HDL Cholesterol Arterial Blood Glucose Arterial Blood Ionized Calcium Coronavirus (PCR) Crossmatch 12/10/20 12/11/20 12/11/20 23:03 02:57 04:29 WBC RBC Hgb Hct MCV MCH RDW Plt Count Lymph % (Auto) Lymph # (Auto) Seg Neutrophils % Seg Neuts % (Manual) Lymphocytes % (Manual) Nucleated RBC % Seg Neutrophils # Man Lymphocytes # (Manual) PT INR APTT Fibrinogen D-Dimer Heparin Anti-Xa Level ABG pH POC ABG pCO2 POC ABG pO2 ABG Hemoglobin 7.4 L ABG Oxyhemoglobin ABG Sodium ABG Potassium ABG Chloride 110.0 H ABG Glucose 250 H Carboxyhemoglobin Sodium Potassium Chloride Carbon Dioxide BUN Creatinine Glucose POC Glucose 204 H Hemoglobin A1c Lactic Acid Calcium Phosphorus Magnesium Ferritin AST Alkaline Phosphatase Lactate Dehydrogenase Total Creatine Kinase CK-MB (CK-2) CK-MB (CK-2) Rel Index Troponin T C-Reactive Protein NT-Pro-B Natriuret Pep Total Protein Albumin Triglycerides 366 H LDL Cholesterol Direct HDL Cholesterol Arterial Blood Glucose 250 H Arterial Blood Ionized Calcium 4.4 L Coronavirus (PCR) Crossmatch 12/11/20 12/11/20 12/11/20 04:29 04:29 05:05 WBC 16.5 H RBC 2.60 L Hgb 7.0 L Hct 21.8 L MCV MCH 27 L RDW 18.4 H Plt Count 111 L Lymph % (Auto) Lymph # (Auto) Seg Neutrophils % Seg Neuts % (Manual) Lymphocytes % (Manual) Nucleated RBC % Seg Neutrophils # Man Lymphocytes # (Manual) PT INR APTT Fibrinogen D-Dimer Heparin Anti-Xa Level ABG pH POC ABG pCO2 POC ABG pO2 ABG Hemoglobin ABG Oxyhemoglobin ABG Sodium ABG Potassium ABG Chloride ABG Glucose Carboxyhemoglobin Sodium Potassium Chloride 107.5 H Carbon Dioxide BUN 45 H Creatinine 1.4 H Glucose 258 H POC Glucose 250 H Hemoglobin A1c Lactic Acid Calcium 7.7 L Phosphorus Magnesium 3.00 H Ferritin AST 78 H Alkaline Phosphatase 141 H Lactate Dehydrogenase Total Creatine Kinase CK-MB (CK-2) CK-MB (CK-2) Rel Index Troponin T C-Reactive Protein NT-Pro-B Natriuret Pep Total Protein 4.4 L Albumin 2.2 L Triglycerides LDL Cholesterol Direct HDL Cholesterol Arterial Blood Glucose Arterial Blood Ionized Calcium Coronavirus (PCR) Crossmatch 12/11/20 12/11/20 12/11/20 10:25 11:07 15:45 WBC RBC Hgb 6.7 L Hct 21.0 L MCV MCH RDW Plt Count Lymph % (Auto) Lymph # (Auto) Seg Neutrophils % Seg Neuts % (Manual) Lymphocytes % (Manual) Nucleated RBC % Seg Neutrophils # Man Lymphocytes # (Manual) PT INR APTT Fibrinogen D-Dimer Heparin Anti-Xa Level < 0.10 L ABG pH POC ABG pCO2 POC ABG pO2 ABG Hemoglobin ABG Oxyhemoglobin ABG Sodium ABG Potassium ABG Chloride ABG Glucose Carboxyhemoglobin Sodium Potassium Chloride Carbon Dioxide BUN Creatinine Glucose POC Glucose 225 H Hemoglobin A1c Lactic Acid Calcium Phosphorus Magnesium Ferritin AST Alkaline Phosphatase Lactate Dehydrogenase Total Creatine Kinase CK-MB (CK-2) CK-MB (CK-2) Rel Index Troponin T C-Reactive Protein NT-Pro-B Natriuret Pep Total Protein Albumin Triglycerides LDL Cholesterol Direct HDL Cholesterol Arterial Blood Glucose Arterial Blood Ionized Calcium Coronavirus (PCR) Crossmatch 12/11/20 12/11/20 12/11/20 15:45 16:21 17:54 WBC 17.2 H RBC 2.38 L Hgb 6.3 L Hct 19.6 L* MCV MCH 27 L RDW 18.8 H Plt Count 91 L Lymph % (Auto) Lymph # (Auto) Seg Neutrophils % Seg Neuts % (Manual) Lymphocytes % (Manual) Nucleated RBC % Seg Neutrophils # Man Lymphocytes # (Manual) PT 17.3 H INR 1.35 H APTT Fibrinogen 104 L* D-Dimer Heparin Anti-Xa Level ABG pH POC ABG pCO2 POC ABG pO2 ABG Hemoglobin ABG Oxyhemoglobin ABG Sodium ABG Potassium ABG Chloride ABG Glucose Carboxyhemoglobin Sodium Potassium Chloride Carbon Dioxide BUN Creatinine Glucose POC Glucose 259 H Hemoglobin A1c Lactic Acid Calcium Phosphorus Magnesium Ferritin AST Alkaline Phosphatase Lactate Dehydrogenase Total Creatine Kinase CK-MB (CK-2) CK-MB (CK-2) Rel Index Troponin T C-Reactive Protein NT-Pro-B Natriuret Pep Total Protein Albumin Triglycerides LDL Cholesterol Direct HDL Cholesterol Arterial Blood Glucose Arterial Blood Ionized Calcium Coronavirus (PCR) Crossmatch 12/11/20 12/11/20 12/11/20 21:28 23:19 Unknown WBC RBC Hgb 8.3 L Hct 26.0 L D MCV MCH RDW Plt Count Lymph % (Auto) Lymph # (Auto) Seg Neutrophils % Seg Neuts % (Manual) Lymphocytes % (Manual) Nucleated RBC % Seg Neutrophils # Man Lymphocytes # (Manual) PT INR APTT Fibrinogen D-Dimer Heparin Anti-Xa Level ABG pH POC ABG pCO2 POC ABG pO2 ABG Hemoglobin ABG Oxyhemoglobin ABG Sodium ABG Potassium ABG Chloride ABG Glucose Carboxyhemoglobin Sodium Potassium Chloride Carbon Dioxide BUN Creatinine Glucose POC Glucose 251 H 229 H Hemoglobin A1c Lactic Acid Calcium Phosphorus Magnesium Ferritin AST Alkaline Phosphatase Lactate Dehydrogenase Total Creatine Kinase CK-MB (CK-2) CK-MB (CK-2) Rel Index Troponin T C-Reactive Protein NT-Pro-B Natriuret Pep Total Protein Albumin Triglycerides LDL Cholesterol Direct HDL Cholesterol Arterial Blood Glucose Arterial Blood Ionized Calcium Coronavirus (PCR) Crossmatch 12/12/20 12/12/20 12/12/20 04:00 04:44 06:04 WBC 22.1 H RBC 3.21 L Hgb 8.4 L Hct 26.8 L MCV MCH 26 L RDW 19.5 H Plt Count 106 L Lymph % (Auto) Lymph # (Auto) Seg Neutrophils % Seg Neuts % (Manual) Lymphocytes % (Manual) Nucleated RBC % Seg Neutrophils # Man Lymphocytes # (Manual) PT INR APTT Fibrinogen D-Dimer Heparin Anti-Xa Level ABG pH POC ABG pCO2 POC ABG pO2 79.5 L ABG Hemoglobin 8.8 L ABG Oxyhemoglobin 93.5 L ABG Sodium ABG Potassium ABG Chloride 114.0 H ABG Glucose 257 H Carboxyhemoglobin Sodium Potassium Chloride Carbon Dioxide BUN Creatinine Glucose POC Glucose 232 H Hemoglobin A1c Lactic Acid Calcium Phosphorus Magnesium Ferritin AST Alkaline Phosphatase Lactate Dehydrogenase Total Creatine Kinase CK-MB (CK-2) CK-MB (CK-2) Rel Index Troponin T C-Reactive Protein NT-Pro-B Natriuret Pep Total Protein Albumin Triglycerides LDL Cholesterol Direct HDL Cholesterol Arterial Blood Glucose 257 H Arterial Blood Ionized Calcium Coronavirus (PCR) Crossmatch 12/12/20 12/12/20 12/12/20 06:04 06:04 08:10 WBC RBC Hgb Hct MCV MCH RDW Plt Count Lymph % (Auto) Lymph # (Auto) Seg Neutrophils % Seg Neuts % (Manual) Lymphocytes % (Manual) Nucleated RBC % Seg Neutrophils # Man Lymphocytes # (Manual) PT INR APTT Fibrinogen 100 L* D-Dimer > 92983 H Heparin Anti-Xa Level ABG pH POC ABG pCO2 POC ABG pO2 ABG Hemoglobin ABG Oxyhemoglobin ABG Sodium ABG Potassium ABG Chloride ABG Glucose Carboxyhemoglobin Sodium 146 H D Potassium Chloride 116.0 H Carbon Dioxide 20 L BUN 40 H Creatinine Glucose 234 H POC Glucose Hemoglobin A1c Lactic Acid Calcium 7.5 L Phosphorus Magnesium 3.10 H Ferritin 240.7 H AST Alkaline Phosphatase Lactate Dehydrogenase 1274 H Total Creatine Kinase CK-MB (CK-2) CK-MB (CK-2) Rel Index Troponin T C-Reactive Protein 2.80 H NT-Pro-B Natriuret Pep Total Protein Albumin Triglycerides LDL Cholesterol Direct HDL Cholesterol Arterial Blood Glucose Arterial Blood Ionized Calcium Coronavirus (PCR) Crossmatch 12/12/20 12/12/20 12/12/20 08:10 11:49 17:41 WBC RBC Hgb 8.2 L Hct 25.9 L MCV MCH RDW Plt Count Lymph % (Auto) Lymph # (Auto) Seg Neutrophils % Seg Neuts % (Manual) Lymphocytes % (Manual) Nucleated RBC % Seg Neutrophils # Man Lymphocytes # (Manual) PT INR APTT Fibrinogen D-Dimer Heparin Anti-Xa Level ABG pH POC ABG pCO2 POC ABG pO2 ABG Hemoglobin ABG Oxyhemoglobin ABG Sodium ABG Potassium ABG Chloride ABG Glucose Carboxyhemoglobin Sodium Potassium Chloride Carbon Dioxide BUN Creatinine Glucose POC Glucose 215 H 143 H Hemoglobin A1c Lactic Acid Calcium Phosphorus Magnesium Ferritin AST Alkaline Phosphatase Lactate Dehydrogenase Total Creatine Kinase CK-MB (CK-2) CK-MB (CK-2) Rel Index Troponin T C-Reactive Protein NT-Pro-B Natriuret Pep Total Protein Albumin Triglycerides LDL Cholesterol Direct HDL Cholesterol Arterial Blood Glucose Arterial Blood Ionized Calcium Coronavirus (PCR) Crossmatch 12/12/20 12/13/20 12/13/20 23:38 04:00 05:20 WBC RBC Hgb Hct MCV MCH RDW Plt Count Lymph % (Auto) Lymph # (Auto) Seg Neutrophils % Seg Neuts % (Manual) Lymphocytes % (Manual) Nucleated RBC % Seg Neutrophils # Man Lymphocytes # (Manual) PT INR APTT Fibrinogen D-Dimer Heparin Anti-Xa Level ABG pH POC ABG pCO2 POC ABG pO2 56.6 L ABG Hemoglobin 7.0 L ABG Oxyhemoglobin 85.1 L ABG Sodium ABG Potassium ABG Chloride 118.0 H ABG Glucose 231 H Carboxyhemoglobin 2.0 H Sodium Potassium Chloride Carbon Dioxide BUN Creatinine Glucose POC Glucose 220 H 215 H Hemoglobin A1c Lactic Acid Calcium Phosphorus Magnesium Ferritin AST Alkaline Phosphatase Lactate Dehydrogenase Total Creatine Kinase CK-MB (CK-2) CK-MB (CK-2) Rel Index Troponin T C-Reactive Protein NT-Pro-B Natriuret Pep Total Protein Albumin Triglycerides LDL Cholesterol Direct HDL Cholesterol Arterial Blood Glucose 231 H Arterial Blood Ionized Calcium Coronavirus (PCR) Crossmatch 12/13/20 12/13/20 12/13/20 06:55 06:55 12:19 WBC 23.0 H RBC 2.74 L Hgb 7.1 L Hct 22.6 L MCV MCH 26 L RDW 20.3 H Plt Count 80 L Lymph % (Auto) Lymph # (Auto) Seg Neutrophils % Seg Neuts % (Manual) Lymphocytes % (Manual) Nucleated RBC % Seg Neutrophils # Man Lymphocytes # (Manual) PT INR APTT Fibrinogen D-Dimer Heparin Anti-Xa Level ABG pH POC ABG pCO2 POC ABG pO2 ABG Hemoglobin ABG Oxyhemoglobin ABG Sodium ABG Potassium ABG Chloride ABG Glucose Carboxyhemoglobin Sodium 149 H Potassium Chloride 115.8 H Carbon Dioxide BUN 45 H Creatinine Glucose 237 H POC Glucose 250 H Hemoglobin A1c Lactic Acid Calcium Phosphorus Magnesium 3.10 H Ferritin AST 88 H Alkaline Phosphatase 241 H Lactate Dehydrogenase Total Creatine Kinase CK-MB (CK-2) CK-MB (CK-2) Rel Index Troponin T C-Reactive Protein NT-Pro-B Natriuret Pep Total Protein 5.1 L Albumin 2.8 L Triglycerides LDL Cholesterol Direct HDL Cholesterol Arterial Blood Glucose Arterial Blood Ionized Calcium Coronavirus (PCR) Crossmatch Chest x-ray: other (none today) Allied health notes reviewed: nursing
--- NOTE | 2020-12-13 16:46 | Progress Note ---
<RAFFYMACKENZIE NancyeDsire - Last Filed: 12/13/20 18:14> Assessment and Plan Assessment and plan: This is a 65 year old female with HTN, DM, GI bleed in 2016 admitted with COVID 19 pna, sepsis, acute hypoxic respiratory failure and ACS NEURO: -Patient opens eyes and moves lower extremities spontaneously -Patient is sedated on propofol, fentanyl -RASS goal 0 to -1 -Avoid delirium -SAT trials when appropriate CV: IL, h/o HTN -Cardiology consulted, appreciate recommendations -Per cardiology patient will be medically treated -Echocardiogram shows LVEF 65 to 70%, mild LVH-> see report for details -Aspirin, Lipitor, Plavix -Blood pressure monitor per protocol RESP: Acute hypoxic respiratory failure -No Baseline home oxygen requirements -Patient was intubated 12/08 -Wean mechanical ventilation as tolerated -VAP bundle -Daily CXR and ABGs -12/11 vent settings: Assist control tidal volume 500, rate of 30, PEEP of 14, 90% FiO2 -12/11 ABG and CXR reviewed -merly again today GI: TF, GIB -nutrition consult -TF held d/t bleeding noted at mouth/nose/ guiac positive -GI consulted, patient recommendations (signed off 12/12) -IV PPI -Bowel regimen: Sennakot -24 hour +976 ml : Urinary retention, metabolic acidosis, hypernatremia -Carpenter placed urinary retention, strict intake and output -Strict intake and output -Avoid nephrotoxic medication -Trend creatinine Heme: Anemia, brachial vein DVT, GIB, thrombocytopenia, -Guaiac positive stool, remote history of GI bleed (2016) -GI/vascular/hem/onc consulted, appreciate recommendations -Trend H&H -Hemoglobin on admission 8.9 -s/p unit PRBC -Transfuse as needed for hgb<7 -Patient was on heparin drip was discontinued due to GI bleed -SCDs to bilateral lower extremities while in bed -Per vascular surgery- When the patient is able to tolerate anticoagulation would recommend restarting a low-dose heparin drip to prevent propagation of the DVT. -PE: Left and right radial pulse palpated; Bilateral DP and PT palpable, B hands cold with discolored thumb/index and middle fingers, B feet cold wioth discolored toes ID: COVID-19 pneumonia, leukocytosis -Admits to known exposure -Presented at outside facility ([facility]) with Covid symptom complaints, CT angio chest bilateral ground glass opacities but no PE, consistent with Covid -COVID-19 PCR positive -Zinc/vitamin D/vitamin C -Steroids x5 days -S/p remdesivir x5 days, s/p Actemra -Per ID: Continue cefepime and vancomycin for 5 days (12/08 through 12/13) -Contact/droplet precautions -ID consulted, appreciate recommendations -Anticoagulation per protocol as tolerated ENDO: DM2 -Uncontrolled, with hyperglycemia -Blood glucose every 6 -Scheduled Lantus (titrate as needed) and SSI coverage prn -HgbA1C 9.5 -Avoid hypoglycemia The high probability of a clinically significant, sudden or life threatening deterioration of the [pulmonary] system(s) required my full and direct attention, intervention and personal management. The aggregate critical care time was [60] minutes. This time is in addition to time spent performing reported procedures but includes the following: [x] Data Review and interpretation [x] Patient assessment and monitoring of vital signs [x] Documentation [x] Medication orders and management Disposition Plan: icu Total Time Spent with Patient (Minutes): 60 History Interval history: 65-year-old -Tongan female with history of hypertension, diabetes, and GI bleed who presents [facility] ED with complaints of shortness of breath, loss of taste and smell, malaise, fatigue and weakness. Of note this is a [facility] patient and [facility] has agreed to the admission. Patient presented to her local [facility] clinic yesterday evening with complaints of Covid symptoms x6 days. CT angio chest done at [facility] revealed extensive irregular bilateral groundglass opacities, and patient was referred to ED for further evaluation and treatment. Admits to known exposure, states that her friend whom she was in close contact with for several days recently tested positive for Covid. Endorses mild generalized headache, chest tightening, diarrhea, body aches, loss of smell and taste, and shortness of breath. 12/03: COVID-19 test is positive patient is high flow in progress 40liters/100%, will obtain pulmonary consultation. Will adjust glargine for better insulin coverage. Continue remdesivir and Solu-Medrol. Will monitor progression. Encourage prone positioning. We will give a dose of Lasix today. Would like to go to full dose anticoagulation but patient's anemia is precluding And also patient with noted positive stool and remote history of GI bleed in 2016 if no worsening renal function with the Lasix given today will consider CTA in the morning if patient is not improving 12/04: Patient seen and examined, considering worsening hypoxia and stable renal function will order CTA to rule out pulmonary embolism. Will give one-time full dose anticoagulation and continue the prophylactic dose as being careful due to history of GI bleed. And noted anemia. I discussed with the pricing director patient will transfer to [facility]. For now continue steroid therapy will give additional dose of Lasix today. Blood sugar is better controlled. Continue steroids and remdesivir. Patient also Getting Actmera also. Patient was able to prone today. 12/05: Patient s/p Actemra. Continue supportive care she is prone. She continues on steroids and remdesivir. We will give additional Lasix today and monitor renal function in a.m. She remains on high flow and nonrebreather mask/sign of the severity of her hypoxia 12/07: Patient remains on High flow, desaturating despite being on 100% highflow and NRBM, encourage to go back on BiPAP, she protested but now willing with improvement back to 89%. Patient is now on heparin drip, will obtain Chest xray. prongnosis -guarded 12/08: Patient still with hypoxic respiratory failure, worsening symptoms, EKG done concerning for inferior wall IL, STAT Troponin still pending. Discussed with the pulmonary doctor and also with the electro optical engineer. Patient due to worsening symptoms is unable to go to the cathlab as she is not stable due to significant hypoxic. The patient again denies any chest pain, BUT WONDER IF this is secondary to the ongoing Heparin drip. Will start on full dose Plavix, Low dose ASA, BB if tolerating. Transfer to the ICU. Patient is s.p Remdesivir and Actmera continue Steroids and Heparin drip. Plan discussed with the patient in detail Noted with Hypoglycemia, will adjust insulin Need to monitor Nutritional status Very guarded prognosis 12/09 no acute events overnight 12/10: LARISA, heparin gtt turned off d/t bleeding 12/11: Patient is anemic today and required transfusion of PRBC x1 which was ordered. Vascular surgery was consulted for evaluation of right radial artery. Patient's heparin drip was discontinued due to mouth/nose. venous US ordered and PT/INR/CBC and fibrinogen were ordered 12/12: brachial vein DVT shown on US. Pt now has no dopplarable or papable pulse on right wrist (brachial heard on Doppler). Vascular surgery is aware. 12/13: PPP papable now, hand remain cold and feet are warmer. Started n argatroban and received cryo Hospitalist Physical - Constitutional Vitals: Temp Pulse Resp BP Pulse Ox 100.4 F H 105 H 27 H 103/58 99 12/13/20 12:00 12/13/20 15:00 12/13/20 15:00 12/13/20 15:00 12/13/20 15:00 General appearance: Present: other (Intubated, sedated) - EENT Eyes: Present: PERRL - Neck Neck: Absent: masses or JVD, cervical LAD - Respiratory Respiratory effort: normal Respiratory: bilateral: diminished - Cardiovascular Rhythm: regular Heart Sounds: Present: S1 & S2. Absent: systolic murmur, diastolic murmur - Extremities Extremities: pulses intact Extremity abnormal: cyanosis, black, cold, pulses diminished Peripheral Pulses: abnormal - Peripheral pulses radial pulse Pulse Strength: 1+ (Doppler) - Abdominal General gastrointestinal: soft, non-tender, hypoactive bowel sounds - Integumentary Integumentary: Present: dry - Psychiatric Psychiatric: other (sedated) - Neurologic Neurologic: other (sedated) - Allied Health Allied health notes reviewed: nursing, RT HEART Score - HEART Score Troponin: Troponin T 0.487 ng/mL (0.00-0.029) H* D 12/09/20 13:08 Results - Labs CBC & Chem 7: 12/13/20 06:55 12/13/20 06:55 Labs: Laboratory Last Values WBC 23.0 K/mm3 (4.5-11.0) H 12/13/20 06:55 RBC 2.74 M/mm3 (3.65-5.03) L 12/13/20 06:55 Hgb 7.1 gm/dl (10.1-14.3) L 12/13/20 06:55 Hct 22.6 % (30.3-42.9) L 12/13/20 06:55 MCV 83 fl (79-97) 12/13/20 06:55 MCH 26 pg (28-32) L 12/13/20 06:55 MCHC 31 % (30-34) 12/13/20 06:55 RDW 20.3 % (13.2-15.2) H 12/13/20 06:55 Plt Count 80 K/mm3 (140-440) L 12/13/20 06:55 Lymph % (Auto) 6.7 % (13.4-35.0) L 12/02/20 03:58 Woodruff % (Auto) 5.4 % (0.0-7.3) 12/02/20 03:58 Eos % (Auto) 0.0 % (0.0-4.3) 12/02/20 03:58 Baso % (Auto) 0.2 % (0.0-1.8) 12/02/20 03:58 Lymph # (Auto) 0.3 K/mm3 (1.2-5.4) L 12/02/20 03:58 Woodruff # (Auto) 0.3 K/mm3 (0.0-0.8) 12/02/20 03:58 Eos # (Auto) 0.0 K/mm3 (0.0-0.4) 12/02/20 03:58 Baso # (Auto) 0.0 K/mm3 (0.0-0.1) 12/02/20 03:58 Add Manual Diff Complete 12/10/20 02:39 Total Counted 100 12/10/20 02:39 Seg Neutrophils % General Ii Farmworker 12/10/20 02:39 Seg Neuts % (Manual) 95.0 % (40.0-70.0) H 12/10/20 02:39 Band Neutrophils % 2.0 % 12/10/20 02:39 Lymphocytes % (Manual) 1.0 % (13.4-35.0) L 12/10/20 02:39 Monocytes % (Manual) 2.0 % (0.0-7.3) 12/10/20 02:39 Eosinophils % (Manual) 1.0 % (0.0-4.3) 12/08/20 20:15 Nucleated RBC % 3.0 % (0.0-0.9) H 12/10/20 02:39 Seg Neutrophils # 4.4 K/mm3 (1.8-7.7) 12/02/20 03:58 Seg Neutrophils # Man 18.2 K/mm3 (1.8-7.7) H 12/10/20 02:39 Band Neutrophils # 0.4 K/mm3 12/10/20 02:39 Lymphocytes # (Manual) 0.2 K/mm3 (1.2-5.4) L 12/10/20 02:39 Abs React Lymphs (Man) 0.0 K/mm3 12/10/20 02:39 Monocytes # (Manual) 0.4 K/mm3 (0.0-0.8) 12/10/20 02:39 Eosinophils # (Manual) 0.0 K/mm3 (0.0-0.4) 12/10/20 02:39 Basophils # (Manual) 0.0 K/mm3 (0.0-0.1) 12/10/20 02:39 Metamyelocytes # 0.0 K/mm3 12/10/20 02:39 Myelocytes # 0.0 K/mm3 12/10/20 02:39 Promyelocytes # 0.0 K/mm3 12/10/20 02:39 Blast Cells # 0.0 K/mm3 12/10/20 02:39 WBC Morphology Not Reportable 12/10/20 02:39 Hypersegmented Neuts Not Reportable 12/10/20 02:39 Hyposegmented Neuts Not Reportable 12/10/20 02:39 Hypogranular Neuts Not Reportable 12/10/20 02:39 Smudge Cells Not Reportable 12/10/20 02:39 Toxic Granulation Not Reportable 12/10/20 02:39 Toxic Vacuolation Not Reportable 12/10/20 02:39 Dohle Bodies Not Reportable 12/10/20 02:39 Pelger-Huet Anomaly Not Reportable 12/10/20 02:39 Minna Rods Not Reportable 12/10/20 02:39 Platelet Estimate Consistent w auto 12/10/20 02:39 Clumped Platelets Not Reportable 12/10/20 02:39 Plt Clumps, EDTA Not Reportable 12/10/20 02:39 Large Platelets Few 12/10/20 02:39 Giant Platelets Not Reportable 12/10/20 02:39 Platelet Satelliting Not Reportable 12/10/20 02:39 Plt Morphology Comment Not Reportable 12/10/20 02:39 RBC Morphology Not Reportable 12/10/20 02:39 Dimorphic RBCs Not Reportable 12/10/20 02:39 Polychromasia Few 12/10/20 02:39 Hypochromasia 1+ 12/10/20 02:39 Poikilocytosis Not Reportable 12/10/20 02:39 Anisocytosis 1+ 12/10/20 02:39 Microcytosis Few 12/10/20 02:39 Macrocytosis Not Reportable 12/10/20 02:39 Spherocytes Not Reportable 12/10/20 02:39 Pappenheimer Bodies Not Reportable 12/10/20 02:39 Sickle Cells Not Reportable 12/10/20 02:39 Target Cells Not Reportable 12/10/20 02:39 Tear Drop Cells Few 12/10/20 02:39 Ovalocytes Not Reportable 12/10/20 02:39 Helmet Cells Not Reportable 12/10/20 02:39 [place] Bodies Not Reportable 12/10/20 02:39 Buckley Rings Not Reportable 12/10/20 02:39 Goyo Cells Not Reportable 12/10/20 02:39 Bite Cells Not Reportable 12/10/20 02:39 Crenated Cell Not Reportable 12/10/20 02:39 Elliptocytes Not Reportable 12/10/20 02:39 Acanthocytes (Spur) Not Reportable 12/10/20 02:39 Rouleaux Not Reportable 12/10/20 02:39 Hemoglobin C Crystals Not Reportable 12/10/20 02:39 Schistocytes Not Reportable 12/10/20 02:39 Malaria parasites Not Reportable 12/10/20 02:39 Po Bodies Not Reportable 12/10/20 02:39 Hem Pathologist Commnt No 12/10/20 02:39 PT 17.3 Sec. (12.2-14.9) H 12/11/20 15:45 INR 1.35 (0.87-1.13) H 12/11/20 15:45 APTT 29.2 Sec. (24.2-36.6) 12/11/20 15:45 Fibrinogen 100 mg/dl (211-480) L* 12/12/20 08:10 D-Dimer > 30123 ng/mlDDU (0-234) H 12/12/20 08:10 Heparin Anti-Xa Level < 0.10 U.I./ml (0.3-0.7) L 12/11/20 15:45 ABG pH 7.361 (7.320-7.450) 12/13/20 04:00 POC ABG pCO2 45.9 mmHg (32.0-48.0) 12/13/20 04:00 POC ABG pO2 56.6 mmHg (83-108) L 12/13/20 04:00 POC ABG HCO3 25.4 12/13/20 04:00 ABG O2 Saturation 87.1 (0-100) 12/13/20 04:00 POC ABG Base Excess -0.1 12/13/20 04:00 ABG Hemoglobin 7.0 (12.0-17.5) L 12/13/20 04:00 ABG Oxyhemoglobin 85.1 (94-98) L 12/13/20 04:00 ABG Methemoglobin 0.3 (0.0-1.5) 12/13/20 04:00 ABG Sodium 142.9 mmol/L (136.0-145.0) 12/13/20 04:00 ABG Potassium 4.5 mmol/L (3.40-4.50) 12/13/20 04:00 ABG Chloride 118.0 mmol/L (98-107) H 12/13/20 04:00 ABG Glucose 231 mg/dL (65-95) H 12/13/20 04:00 Carboxyhemoglobin 2.0 (0.5-1.5) H 12/13/20 04:00 FiO2 % 90.0 12/13/20 04:00 Sodium 149 mmol/L (137-145) H 12/13/20 06:55 Potassium 4.7 mmol/L (3.6-5.0) 12/13/20 06:55 Chloride 115.8 mmol/L (98-107) H 12/13/20 06:55 Carbon Dioxide 24 mmol/L (22-30) 12/13/20 06:55 Anion Gap 14 mmol/L 12/13/20 06:55 BUN 45 mg/dL (7-17) H 12/13/20 06:55 Creatinine 1.1 mg/dL (0.6-1.2) 12/13/20 06:55 Estimated GFR 60 ml/min 12/13/20 06:55 BUN/Creatinine Ratio 41 % 12/13/20 06:55 Glucose 237 mg/dL (65-100) H 12/13/20 06:55 POC Glucose 250 mg/dL (70-105) H 12/13/20 12:19 Hemoglobin A1c 9.5 % (4-6) H 12/02/20 06:15 Lactic Acid 2.50 mmol/L (0.7-2.0) H* 12/09/20 13:08 Calcium 8.4 mg/dL (8.4-10.2) 12/13/20 06:55 Phosphorus 3.00 mg/dL (2.5-4.5) 12/13/20 06:55 Magnesium 3.10 mg/dL (1.7-2.3) H 12/13/20 06:55 Ferritin 240.7 ng/mL (10.0-200.0) H 12/12/20 06:04 Total Bilirubin 0.50 mg/dL (0.1-1.2) 12/13/20 06:55 AST 88 units/L (5-40) H 12/13/20 06:55 ALT 19 units/L (7-56) 12/13/20 06:55 Alkaline Phosphatase 241 units/L (35-129) H 12/13/20 06:55 Lactate Dehydrogenase 1274 units/L (91-180) H 12/12/20 06:04 Total Creatine Kinase 521 units/L (30-135) H 12/08/20 20:15 CK-MB (CK-2) 31.5 ng/mL (0.0-4.0) H 12/08/20 20:15 CK-MB (CK-2) Rel Index 6.0 (0-4) H 12/08/20 20:15 Troponin T 0.487 ng/mL (0.00-0.029) H* D 12/09/20 13:08 C-Reactive Protein 2.80 mg/dL (0.00-1.30) H 12/12/20 06:04 NT-Pro-B Natriuret Pep 2396 pg/mL (0-900) H 12/09/20 13:08 Total Protein 5.1 g/dL (6.3-8.2) L 12/13/20 06:55 Albumin 2.8 g/dL (3.9-5) L 12/13/20 06:55 Albumin/Globulin Ratio 1.2 % 12/13/20 06:55 Triglycerides 366 mg/dL (2-149) H 12/11/20 04:29 Cholesterol 88 mg/dL (50-199) 12/08/20 13:25 LDL Cholesterol Direct 30 mg/dL (50-130) L 12/08/20 13:25 HDL Cholesterol 35 mg/dL (40-59) L 12/08/20 13:25 Cholesterol/HDL Ratio 2.51 % 12/08/20 13:25 Procalcitonin 1.18 ng/mL (<0.15) 12/02/20 03:58 Arterial Blood Glucose 231 mg/dL (65-95) H 12/13/20 04:00 Arterial Blood Ionized Calcium 4.8 mg/dL (4.6-5.3) 12/13/20 04:00 Coronavirus (PCR) Positive (Negative) A 12/02/20 08:15 Blood Type O POSITIVE 12/10/20 04:10 Antibody Screen Negative 12/10/20 04:10 Crossmatch See Detail 12/10/20 04:10 Microbiology: Microbiology 12/11/20 16:39 Tracheal Aspirate Sputum Culture - Final Carpenter/IV: Voiding Method Indwelling Catheter Active Medications - Current Medications Current Medications: Generic Name Dose Route Start Last Admin Trade Name Freq PRN Reason Stop Dose Admin Acetaminophen 650 mg 12/02/20 05:09 12/12/20 18:19 Acetaminophen 325 Mg Tab PO 650 mg Q4H PRN Administration Pain MILD(1-3)/Fever >100.5/LARA Albuterol 2.5 mg 12/02/20 05:09 Albuterol 2.5 Mg/3 Ml Nebu IH Q3HRT PRN Shortness Of Breath Lipase/Protease/Amylase 1 each 12/09/20 10:32 Lipase 10,500/Protease 25,000/Amylase 43,750 (Units) Dr Fong FEEDTUBE PRN PRN For Clogged Feeding Tube Ascorbic Acid 500 mg 12/03/20 22:00 12/13/20 10:48 Ascorbic Acid 500 Mg Tab PO 500 mg BID AZAEL Administration Aspirin 81 mg 12/08/20 13:00 12/13/20 10:48 Aspirin 81 Mg Tab Chew PO 81 mg QDAY AZAEL Administration Atorvastatin Calcium 40 mg 12/08/20 22:00 12/12/20 22:15 Atorvastatin 40 Mg Tab PO 40 mg QHS AZAEL Administration Cholecalciferol 5,000 unit 12/02/20 10:00 12/13/20 10:48 Cholecalciferol (Vit D3) 5,000 Unit Tab PO 5,000 unit DAILY AZAEL Administration Clopidogrel Bisulfate 75 mg 12/09/20 10:00 12/13/20 10:48 Clopidogrel 75 Mg Tab PO 75 mg QDAY AZAEL Administration Dextrose 50 ml 12/02/20 05:09 12/05/20 08:09 Dextrose 50% In Water (25gm) 50 Ml Syringe IV 50 ml Q30MIN PRN Administration Hypoglycemia Protocol Docusate Sodium 100 mg 12/02/20 10:00 12/13/20 10:49 Docusate Sodium 100 Mg Cap PO 100 mg BID AZAEL Administration Fentanyl 50 mcg 12/08/20 15:13 Fentanyl 100 Mcg/2 Ml Inj IV Q10MIN PRN ANALGESIA Hydrophilic Ointment 1 applic 12/08/20 15:56 Lip Therapy Vaseline TP Q2HR PRN Dry Lips Fentanyl Citrate 2,000 mcg in 100 mls @ 3.243 mls/hr 12/08/20 16:00 12/13/20 14:41 Fentanyl Drip Premix IV 4 mcg/kg/hr TITR AZAEL 12.973 mls/hr Administration Protocol 1 MCG/KG/HR NORepinephrine/NS 8 MG-250 ML 8 mg in 250 mls @ 3.75 mls/hr 12/08/20 16:00 12/13/20 13:08 Norepinephrine/Ns 8 Mg-250 Ml (Double Conc) IV 4 mcg/min TITRATE AZAEL 7.5 mls/hr Administration Protocol 2 MCG/MIN Propofol 1,000 mg in 100 mls @ 1.946 mls/hr 12/08/20 17:00 12/13/20 10:49 Diprivan 10 Mg/Ml IV 25 mcg/kg/min TITR AZAEL 9.73 mls/hr Administration Protocol 5 MCG/KG/MIN Sodium Chloride 500 mls @ 1 mls/hr 12/08/20 17:19 12/13/20 14:10 Nacl 0.9% 500 Ml IV 250 mls/hr DIRECT PRN Administration ARTERIAL LINE FLUSH Cefepime HCl 2 gm in 100 mls @ 200 mls/hr 12/09/20 14:00 12/13/20 02:46 Cefepime/Ns 2 Gm/100 Ml IV 12/14/20 02:29 200 mls/hr Q12H [facility] Administration Protocol Vasopressin 20 unit/ Sodium 101 mls @ 9.09 mls/hr 12/10/20 04:00 12/12/20 12:00 Chloride IV Infused TITR [facility] Titration Protocol 0.03 UNITS/MIN Insulin Glargine 20 units 12/13/20 22:00 Insulin Glargine 100 Units/Ml SUB-Q QHS AZAEL Insulin Human Lispro 0 unit 12/09/20 12:00 12/13/20 12:57 Insulin Lispro 100 Unit/Ml SUB-Q 6 unit Q6HR [facility] Administration Protocol Methylprednisolone Sodium Succinate 60 mg 12/13/20 11:00 12/13/20 11:15 Methylprednisolone Sod Succinate 125 Mg/2 Ml Inj IV 12/16/20 10:59 60 mg Q12H [facility] Administration Metoclopramide HCl 5 mg 12/11/20 12:00 12/13/20 12:57 Metoclopramide 10 Mg/2 Ml Inj IV 5 mg Q6H AZAEL Administration Multi-Ingred Cream/Lotion/Oil/Oint 1 applic 12/08/20 15:56 Mineral Oil/Petrolatum, White Ophth Oint 3.5 Gm OU Q4HR PRN Dry Eye(s) Naloxone HCl 0.1 mg 12/02/20 05:09 Naloxone 0.4 Mg/1 Ml Inj IV Q2MIN PRN Res Rate </= 8 or 02 SAT < 92% Nitroglycerin 1 inch 12/08/20 14:00 12/13/20 13:02 Nitroglycerin 2% Oint 1 Gm TP 1 inch QIDNTG [facility] Administration Protocol Ondansetron HCl 4 mg 12/02/20 05:09 Ondansetron 4 Mg/2 Ml Inj IV Q6H PRN Nausea And Vomiting Pantoprazole Sodium 40 mg 12/13/20 10:00 12/13/20 10:49 Pantoprazole 40 Mg Inj IV 40 mg BID AZAEL Administration Senna/Docusate Sodium 1 tab 12/08/20 22:00 12/13/20 10:48 Sennosides/Docusate Sodium 8.6/50 Mg Tab FEEDTUBE 1 tab BID AZAEL Administration Simple Syrup 30 ml 12/09/20 10:32 Simple Syrup 15 Ml FEEDTUBE PRN PRN Hypoglycemia Sodium Bicarbonate 325 mg 12/09/20 10:32 Sodium Bicarbonate 325 Mg Tab FEEDTUBE PRN PRN For Clogged Feeding Tube Sodium Chloride 10 ml 12/02/20 10:00 12/13/20 10:50 Sodium Chloride 0.9% 10 Ml Flush Syringe IV 10 ml BID AZAEL Administration Sodium Chloride 10 ml 12/02/20 05:09 Sodium Chloride 0.9% 10 Ml Flush Syringe IV PRN PRN LINE FLUSH Zinc Sulfate 220 mg 12/02/20 10:00 12/13/20 12:57 Zinc Sulfate 220 Mg Cap PO 220 mg QDAY AZAEL Administration Nutrition/Malnutrition Assess - Dietary Evaluation Nutrition/Malnutrition Findings: Nutrition Notes Start: 12/03/20 10:33 Freq: Status: Active Protocol: Document 12/11/20 09:31 (Rec: 12/11/20 09:34 [id number]) Nutrition Notes Initial or Follow up Brief Note Current Diagnosis Respiratory Failure Other Pertinent Diagnosis Covid +, Hyperglycemia Current Diet Vital AF at 45 ml/hr Subjective/Other Information TF off due to pt bleeding large amount from nose and mouth with possible hematemesis yesterday. Per MD on chest xray, TF needs to be advanced further into the dudenum. Nutrition Intervention Follow-Up By: 12/14/20 Additional Comments F/u: TF restart and tolerance <JEREMY INMAN - Last Filed: 12/14/20 17:37> History Interval history: I saw and evaluated the patient. Discussed with the nurse practitioner and agree with their findings and plan as documented in this note. Hospitalist Physical - Constitutional Vitals: Temp Pulse Resp BP Pulse Ox 99.5 F 81 9 L 98/41 93 12/14/20 12:00 12/14/20 17:00 12/14/20 17:00 12/14/20 17:00 12/14/20 17:00 HEART Score - HEART Score Troponin: Troponin T 0.487 ng/mL (0.00-0.029) H* D 12/09/20 13:08 Results - Labs CBC & Chem 7: 12/14/20 06:55 12/14/20 06:55 Labs: Laboratory Last Values WBC 18.7 K/mm3 (4.5-11.0) H 12/14/20 06:55 RBC 2.27 M/mm3 (3.65-5.03) L 12/14/20 06:55 Hgb 5.9 gm/dl (10.1-14.3) L* 12/14/20 06:55 Hct 19.6 % (30.3-42.9) L* 12/14/20 06:55 MCV 86 fl (79-97) 12/14/20 06:55 MCH 26 pg (28-32) L 12/14/20 06:55 MCHC 30 % (30-34) 12/14/20 06:55 RDW 20.7 % (13.2-15.2) H 12/14/20 06:55 Plt Count 58 K/mm3 (140-440) L 12/14/20 06:55 Lymph % (Auto) 6.7 % (13.4-35.0) L 12/02/20 03:58 Woodruff % (Auto) 5.4 % (0.0-7.3) 12/02/20 03:58 Eos % (Auto) 0.0 % (0.0-4.3) 12/02/20 03:58 Baso % (Auto) 0.2 % (0.0-1.8) 12/02/20 03:58 Lymph # (Auto) 0.3 K/mm3 (1.2-5.4) L 12/02/20 03:58 Woodruff # (Auto) 0.3 K/mm3 (0.0-0.8) 12/02/20 03:58 Eos # (Auto) 0.0 K/mm3 (0.0-0.4) 12/02/20 03:58 Baso # (Auto) 0.0 K/mm3 (0.0-0.1) 12/02/20 03:58 Add Manual Diff Complete 12/10/20 02:39 Total Counted 100 12/10/20 02:39 Seg Neutrophils % General Ii Farmworker 12/10/20 02:39 Seg Neuts % (Manual) 95.0 % (40.0-70.0) H 12/10/20 02:39 Band Neutrophils % 2.0 % 12/10/20 02:39 Lymphocytes % (Manual) 1.0 % (13.4-35.0) L 12/10/20 02:39 Monocytes % (Manual) 2.0 % (0.0-7.3) 12/10/20 02:39 Eosinophils % (Manual) 1.0 % (0.0-4.3) 12/08/20 20:15 Nucleated RBC % 3.0 % (0.0-0.9) H 12/10/20 02:39 Seg Neutrophils # 4.4 K/mm3 (1.8-7.7) 12/02/20 03:58 Seg Neutrophils # Man 18.2 K/mm3 (1.8-7.7) H 12/10/20 02:39 Band Neutrophils # 0.4 K/mm3 12/10/20 02:39 Lymphocytes # (Manual) 0.2 K/mm3 (1.2-5.4) L 12/10/20 02:39 Abs React Lymphs (Man) 0.0 K/mm3 12/10/20 02:39 Monocytes # (Manual) 0.4 K/mm3 (0.0-0.8) 12/10/20 02:39 Eosinophils # (Manual) 0.0 K/mm3 (0.0-0.4) 12/10/20 02:39 Basophils # (Manual) 0.0 K/mm3 (0.0-0.1) 12/10/20 02:39 Metamyelocytes # 0.0 K/mm3 12/10/20 02:39 Myelocytes # 0.0 K/mm3 12/10/20 02:39 Promyelocytes # 0.0 K/mm3 12/10/20 02:39 Blast Cells # 0.0 K/mm3 12/10/20 02:39 WBC Morphology Not Reportable 12/10/20 02:39 Hypersegmented Neuts Not Reportable 12/10/20 02:39 Hyposegmented Neuts Not Reportable 12/10/20 02:39 Hypogranular Neuts Not Reportable 12/10/20 02:39 Smudge Cells Not Reportable 12/10/20 02:39 Toxic Granulation Not Reportable 12/10/20 02:39 Toxic Vacuolation Not Reportable 12/10/20 02:39 Dohle Bodies Not Reportable 12/10/20 02:39 Pelger-Huet Anomaly Not Reportable 12/10/20 02:39 Minna Rods Not Reportable 12/10/20 02:39 Platelet Estimate Consistent w auto 12/10/20 02:39 Clumped Platelets Not Reportable 12/10/20 02:39 Plt Clumps, EDTA Not Reportable 12/10/20 02:39 Large Platelets Few 12/10/20 02:39 Giant Platelets Not Reportable 12/10/20 02:39 Platelet Satelliting Not Reportable 12/10/20 02:39 Plt Morphology Comment Not Reportable 12/10/20 02:39 RBC Morphology Not Reportable 12/10/20 02:39 Dimorphic RBCs Not Reportable 12/10/20 02:39 Polychromasia Few 12/10/20 02:39 Hypochromasia 1+ 12/10/20 02:39 Poikilocytosis Not Reportable 12/10/20 02:39 Anisocytosis 1+ 12/10/20 02:39 Microcytosis Few 12/10/20 02:39 Macrocytosis Not Reportable 12/10/20 02:39 Spherocytes Not Reportable 12/10/20 02:39 Pappenheimer Bodies Not Reportable 12/10/20 02:39 Sickle Cells Not Reportable 12/10/20 02:39 Target Cells Not Reportable 12/10/20 02:39 Tear Drop Cells Few 12/10/20 02:39 Ovalocytes Not Reportable 12/10/20 02:39 Helmet Cells Not Reportable 12/10/20 02:39 [place] Bodies Not Reportable 12/10/20 02:39 [place] Rings Not Reportable 12/10/20 02:39 [place] Cells Not Reportable 12/10/20 02:39 Bite Cells Not Reportable 12/10/20 02:39 Crenated Cell Not Reportable 12/10/20 02:39 Elliptocytes Not Reportable 12/10/20 02:39 Acanthocytes (Spur) Not Reportable 12/10/20 02:39 Rouleaux Not Reportable 12/10/20 02:39 Hemoglobin C Crystals Not Reportable 12/10/20 02:39 Schistocytes Not Reportable 12/10/20 02:39 Malaria parasites Not Reportable 12/10/20 02:39 Po Bodies Not Reportable 12/10/20 02:39 Hem Pathologist Commnt No 12/10/20 02:39 PT 17.5 Sec. (12.2-14.9) H 12/14/20 06:55 INR 1.37 (0.87-1.13) H 12/14/20 06:55 APTT 29.2 Sec. (24.2-36.6) 12/11/20 15:45 Fibrinogen 120 mg/dl (211-480) L* 12/14/20 06:55 D-Dimer > 61354 ng/mlDDU (0-234) H 12/14/20 06:55 Heparin Anti-Xa Level < 0.10 U.I./ml (0.3-0.7) L 12/11/20 15:45 ABG pH Not Reportable 12/14/20 06:25 POC ABG pCO2 45.9 mmHg (32.0-48.0) 12/13/20 04:00 ABG pCO2 Not Reportable 12/14/20 06:25 POC ABG pO2 56.6 mmHg (83-108) L 12/13/20 04:00 ABG pO2 Not Reportable 12/14/20 06:25 POC ABG HCO3 25.4 12/13/20 04:00 ABG HCO3 Not Reportable 12/14/20 06:25 ABG O2 Saturation 75.8 % (95.0-99.0) L 12/14/20 06:25 ABG O2 Content 6.2 (0.0-44) 12/14/20 06:25 POC ABG Base Excess -0.1 12/13/20 04:00 ABG Base Excess Not Reportable 12/14/20 06:25 ABG Hemoglobin 5.8 gm/dl (12.0-16.0) L 12/14/20 06:25 ABG Oxyhemoglobin 85.1 (94-98) L 12/13/20 04:00 ABG Carboxyhemoglobin 2.3 % (0.0-5.0) 12/14/20 06:25 ABG Methemoglobin 0.6 % (0.0-1.5) 12/14/20 06:25 ABG Sodium 142.9 mmol/L (136.0-145.0) 12/13/20 04:00 ABG Potassium 4.5 mmol/L (3.40-4.50) 12/13/20 04:00 ABG Chloride 118.0 mmol/L (98-107) H 12/13/20 04:00 ABG Glucose 231 mg/dL (65-95) H 12/13/20 04:00 Oxyhemoglobin 73.5 % (95.0-99.0) L 12/14/20 06:25 Carboxyhemoglobin 2.0 (0.5-1.5) H 12/13/20 04:00 FiO2 10 % 12/14/20 06:25 FiO2 % 90.0 12/13/20 04:00 Sodium 147 mmol/L (137-145) H 12/14/20 06:55 Potassium 5.3 mmol/L (3.6-5.0) H 12/14/20 06:55 Chloride 116.7 mmol/L (98-107) H 12/14/20 06:55 Carbon Dioxide 22 mmol/L (22-30) 12/14/20 06:55 Anion Gap 14 mmol/L 12/14/20 06:55 BUN 55 mg/dL (7-17) H 12/14/20 06:55 Creatinine 1.0 mg/dL (0.6-1.2) 12/14/20 06:55 Estimated GFR > 60 ml/min 12/14/20 06:55 BUN/Creatinine Ratio 55 % 12/14/20 06:55 Glucose 368 mg/dL (65-100) H 12/14/20 06:55 POC Glucose 524 mg/dL (70-105) H 12/14/20 17:05 Hemoglobin A1c 9.5 % (4-6) H 12/02/20 06:15 Lactic Acid 2.50 mmol/L (0.7-2.0) H* 12/09/20 13:08 Calcium 8.5 mg/dL (8.4-10.2) 12/14/20 06:55 Phosphorus 3.00 mg/dL (2.5-4.5) 12/13/20 06:55 Magnesium 3.10 mg/dL (1.7-2.3) H 12/13/20 06:55 Ferritin 398.2 ng/mL (10.0-200.0) H 12/14/20 06:55 Total Bilirubin 0.50 mg/dL (0.1-1.2) 12/14/20 06:55 AST 86 units/L (5-40) H 12/14/20 06:55 ALT 16 units/L (7-56) 12/14/20 06:55 Alkaline Phosphatase 270 units/L (35-129) H 12/14/20 06:55 Lactate Dehydrogenase 2448 units/L (91-180) H 12/14/20 06:55 Total Creatine Kinase 521 units/L (30-135) H 12/08/20 20:15 CK-MB (CK-2) 31.5 ng/mL (0.0-4.0) H 12/08/20 20:15 CK-MB (CK-2) Rel Index 6.0 (0-4) H 12/08/20 20:15 Troponin T 0.487 ng/mL (0.00-0.029) H* D 12/09/20 13:08 C-Reactive Protein 9.10 mg/dL (0.00-1.30) H 12/14/20 06:55 NT-Pro-B Natriuret Pep 2396 pg/mL (0-900) H 12/09/20 13:08 Total Protein 5.2 g/dL (6.3-8.2) L 12/14/20 06:55 Albumin 2.7 g/dL (3.9-5) L 12/14/20 06:55 Albumin/Globulin Ratio 1.1 % 12/14/20 06:55 Triglycerides 327 mg/dL (2-149) H 12/14/20 08:38 Cholesterol 88 mg/dL (50-199) 12/08/20 13:25 LDL Cholesterol Direct 30 mg/dL (50-130) L 12/08/20 13:25 HDL Cholesterol 35 mg/dL (40-59) L 12/08/20 13:25 Cholesterol/HDL Ratio 2.51 % 12/08/20 13:25 Procalcitonin 1.18 ng/mL (<0.15) 12/02/20 03:58 Arterial Blood Glucose 231 mg/dL (65-95) H 12/13/20 04:00 Arterial Blood Ionized Calcium 4.8 mg/dL (4.6-5.3) 12/13/20 04:00 Coronavirus (PCR) Positive (Negative) A 12/02/20 08:15 Blood Type O POSITIVE 12/14/20 14:20 Antibody Screen Negative 12/14/20 14:20 Crossmatch See Detail 12/14/20 14:20 Carpenter/IV: Voiding Method Indwelling Catheter Active Medications - Current Medications Current Medications: Generic Name Dose Route Start Last Admin Trade Name Freq PRN Reason Stop Dose Admin Acetaminophen 650 mg 12/02/20 05:09 12/12/20 18:19 Acetaminophen 325 Mg Tab PO 650 mg Q4H PRN Administration Pain MILD(1-3)/Fever >100.5/LARA Albuterol 2.5 mg 12/02/20 05:09 Albuterol 2.5 Mg/3 Ml Nebu IH Q3HRT PRN Shortness Of Breath Lipase/Protease/Amylase 1 each 12/09/20 10:32 Lipase 10,500/Protease 25,000/Amylase 43,750 (Units) Dr Fong FEEDTUBE PRN PRN For Clogged Feeding Tube Ascorbic Acid 500 mg 12/03/20 22:00 12/14/20 10:37 Ascorbic Acid 500 Mg Tab PO 500 mg BID AZAEL Administration Aspirin 81 mg 12/08/20 13:00 12/14/20 10:36 Aspirin 81 Mg Tab Chew PO Not Given QDAY AZAEL Atorvastatin Calcium 40 mg 12/08/20 22:00 12/13/20 21:54 Atorvastatin 40 Mg Tab PO 40 mg QHS AZAEL Administration Cholecalciferol 5,000 unit 12/02/20 10:00 12/14/20 10:37 Cholecalciferol (Vit D3) 5,000 Unit Tab PO 5,000 unit DAILY AZAEL Administration Clopidogrel Bisulfate 75 mg 12/09/20 10:00 12/14/20 10:36 Clopidogrel 75 Mg Tab PO Not Given QDAY AZAEL Dextrose 50 ml 12/02/20 05:09 12/05/20 08:09 Dextrose 50% In Water (25gm) 50 Ml Syringe IV 50 ml Q30MIN PRN Administration Hypoglycemia Protocol Docusate Sodium 100 mg 12/14/20 10:00 12/14/20 10:36 Docusate Sodium 100 Mg/10 Ml Oral Liqd FEEDTUBE 100 mg BID AZAEL Administration Fentanyl 50 mcg 12/08/20 15:13 Fentanyl 100 Mcg/2 Ml Inj IV Q10MIN PRN ANALGESIA Hydrophilic Ointment 1 applic 12/08/20 15:56 Lip Therapy Vaseline TP Q2HR PRN Dry Lips Fentanyl Citrate 2,000 mcg in 100 mls @ 3.243 mls/hr 12/08/20 16:00 12/14/20 14:03 Fentanyl Drip Premix IV 4 mcg/kg/hr TITR AZAEL 12.973 mls/hr Administration Protocol 1 MCG/KG/HR NORepinephrine/NS 8 MG-250 ML 8 mg in 250 mls @ 3.75 mls/hr 12/08/20 16:00 12/14/20 17:11 Norepinephrine/Ns 8 Mg-250 Ml (Double Conc) IV 8 mcg/min TITRATE AZAEL 15 mls/hr Titration Protocol 2 MCG/MIN Propofol 1,000 mg in 100 mls @ 1.946 mls/hr 12/08/20 17:00 12/14/20 14:04 Diprivan 10 Mg/Ml IV 35 mcg/kg/min TITR AZAEL 13.621 mls/hr Titration Protocol 5 MCG/KG/MIN Sodium Chloride 500 mls @ 1 mls/hr 12/08/20 17:19 12/13/20 14:10 Nacl 0.9% 500 Ml IV 250 mls/hr DIRECT PRN Administration ARTERIAL LINE FLUSH Vasopressin 20 unit/ Sodium 101 mls @ 9.09 mls/hr 12/10/20 04:00 12/14/20 17:08 Chloride IV 0.03 units/min TITR AZAEL 9.09 mls/hr Administration Protocol 0.03 UNITS/MIN Sodium Chloride 500 mls @ 0 mls/hr 12/14/20 09:53 Nacl 0.9% 500 Ml IV 12/14/20 23:59 ONCE NR As Directed Diltiazem HCl 100 mg in 100 mls @ 5 mls/hr 12/14/20 11:00 12/14/20 14:03 Cardizem/D5w 100mg/100ml IV 10 mg/hr TITR AZAEL 10 mls/hr Titration Protocol 5 MG/HR Insulin Glargine 25 units 12/14/20 18:00 Insulin Glargine 100 Units/Ml SUB-Q BID [facility] Insulin Human Isoph/Insulin Regular 10 unit 12/14/20 17:22 Insulin Nph/Regular 70/30 Inj SUB-Q 12/14/20 17:23 ONCE ONE Insulin Human Lispro 0 unit 12/14/20 18:00 Insulin Lispro 100 Unit/Ml SUB-Q Q4H [facility] [place] Protocol Insulin Human Regular 10 units 12/14/20 18:00 Insulin Regular, Human 100 Units/1 Ml SUB-Q 12/14/20 20:00 ONCE AZAEL Methylprednisolone Sodium Succinate 60 mg 12/13/20 11:00 12/14/20 10:37 Methylprednisolone Sod Succinate 125 Mg/2 Ml Inj IV 12/16/20 10:59 60 mg Q12H AZAEL Administration Metoclopramide HCl 5 mg 12/11/20 12:00 12/14/20 17:32 Metoclopramide 10 Mg/2 Ml Inj IV 5 mg Q6H AZAEL Administration Multi-Ingred Cream/Lotion/Oil/Oint 1 applic 12/08/20 15:56 Mineral Oil/Petrolatum, White Ophth Oint 3.5 Gm OU Q4HR PRN Dry Eye(s) Nitroglycerin 1 inch 12/08/20 14:00 12/14/20 17:13 Nitroglycerin 2% Oint 1 Gm TP Not Given QIDNTG [facility] Protocol Ondansetron HCl 4 mg 12/02/20 05:09 Ondansetron 4 Mg/2 Ml Inj IV Q6H PRN Nausea And Vomiting Pantoprazole Sodium 40 mg 12/13/20 10:00 12/14/20 10:36 Pantoprazole 40 Mg Inj IV 40 mg BID AZAEL Administration Senna/Docusate Sodium 1 tab 12/08/20 22:00 12/14/20 10:36 Sennosides/Docusate Sodium 8.6/50 Mg Tab FEEDTUBE 1 tab BID AZAEL Administration Simple Syrup 30 ml 12/09/20 10:32 Simple Syrup 15 Ml FEEDTUBE PRN PRN Hypoglycemia Sodium Bicarbonate 325 mg 12/09/20 10:32 Sodium Bicarbonate 325 Mg Tab FEEDTUBE PRN PRN For Clogged Feeding Tube Sodium Chloride 10 ml 12/02/20 10:00 12/14/20 10:36 Sodium Chloride 0.9% 10 Ml Flush Syringe IV 10 ml BID AZAEL Administration Sodium Chloride 10 ml 12/02/20 05:09 Sodium Chloride 0.9% 10 Ml Flush Syringe IV PRN PRN LINE FLUSH Zinc Sulfate 220 mg 12/02/20 10:00 12/14/20 10:37 Zinc Sulfate 220 Mg Cap PO 220 mg QDAY AZAEL Administration Nutrition/Malnutrition Assess - Dietary Evaluation Nutrition/Malnutrition Findings: Nutrition Notes Start: 12/03/20 10:33 Freq: Status: Active Protocol: Document 12/14/20 10:32 (Rec: 12/14/20 10:42 [id number]) Nutrition Notes Initial or Follow up Reassessment Current Diagnosis Respiratory Failure Other Pertinent Diagnosis Covid +, Hyperglycemia Current Diet Vital AF at 45 ml/hr Labs/Tests Na 147 K 5.3 BUN 55 BG 368 Pertinent Medications Propofol at 11.676 ml/hr Height 4 ft 11.84 in Weight 64.86 kg Bath Body Weight (kg) 45.09 BMI 28.0 Weight Status Overweight Subjective/Other Information TF running at 45ml/hr (goal rate) and pt tolerating. Percent of energy/protein needs met: 98%/100% Burn Absent Trauma Absent Current % PO Negligible Minimum of two criteria No #1 Nutrition Diagnosis Inadequate oral intake Diagnosis Progress(for reassessment Continues documentation) Is patient on ventilator? Yes Is Patient Ambulatory and/or Out of Bed No REE-([facility]-confined to bed) 1328.772 Calculation Used for Recommendations [facility] Additional Notes Pro needs 1.2-2g/k-130g/ day Fluid needs 1ml/kcal Nutrition Intervention Change Diet Order: continue Nutrition Support: Vital AF 1.2 at 45 ml/hr. Flush 75 ml q4h or per MD. Kcal 1,296 Protein (gm) 81 Fluid (mL) 876 Goal #1 Meet at least 75% of protein and energy needs via TF Anticipated Discharge Needs: Unable to determine at this time Follow-Up By: 12/16/20 Additional Comments F/u: TF tolerance and renal funciton
[2020-12-13] MEDS: VANCOMYCIN/NS 1 GM/250 ML 1 GM/250 ML BAG IV SCH (17:16)
[2020-12-13] MEDS ORDERED: FUROSEMIDE 20 MG/2 ML INJ IV ONE (18:13)
[2020-12-13] MEDS ORDERED: INSULIN GLARGINE 100 UNITS/ML SUB-Q SCH (22:00)
[2020-12-14] MEDS: CEFEPIME/NS 2 GM/100 ML 2 GM/100 ML BAG IV SCH (02:41)
--- NOTE | 2020-12-14 03:56 | XRay Report ---
CHEST 1 VIEW 12/14/2020 2:39 AM INDICATION / CLINICAL INFORMATION: hypoxia. COMPARISON: 12/12/2020. FINDINGS: SUPPORT DEVICES: Unchanged. HEART / MEDIASTINUM: No significant abnormality. LUNGS / PLEURA: Mild worsening of bilateral interstitial opacity. Mild decreasing aeration left base. No pneumothorax. ADDITIONAL FINDINGS: No significant additional findings. IMPRESSION: Mild worsening. Signer Name: Slade Mcginnis MD Signed: 12/14/2020 3:52 AM Workstation Name: [email or web address]
[2020-12-14] MEDS: NITROGLYCERIN 2% OINT 1 GM TP SCH ×4 (05:59→17:13)
[2020-12-14] MEDS: INSULIN LISPRO 100 UNIT/ML SUB-Q SCH ×5 (06:01→22:15)
[2020-12-14] MEDS: fentaNYL DRIP Premix 2,000 MCG/100 ML BAG IV SCH ×3 (06:14→21:39)
[2020-12-14] MEDS ORDERED: ADENOSINE 6 MG/2 ML INJ IV ONE (06:30)
[2020-12-14 07:18] LABS: ABG Methemoglobin 0.6 % (0.0-1.5); ABG Oxygen Saturation 75.8 % (95.0-99.0)
[2020-12-14 07:22] LABS: Mean Corpuscular HGB Conc 30 % (30-34); Mean Corpuscular Volume 86 fl (79-97); Red Blood Count 2.27 M/mm3 (3.65-5.03)
[2020-12-14 07:29] LABS: Hematocrit 19.6 % (30.3-42.9); Hemoglobin 5.9 gm/dl (10.1-14.3); Platelet Count 58 K/mm3 (140-440); Red Cell Distribution Width 20.7 % (13.2-15.2)
[2020-12-14 07:34] LABS: INR 1.37 (0.87-1.13)
[2020-12-14 07:40] LABS: Alanine Aminotransferase 16 units/L (7-56); Albumin 2.7 g/dL (3.9-5); BUN/Creatinine Ratio 55; Blood Urea Nitrogen 55 mg/dL (7-17); Calcium 8.5 mg/dL (8.4-10.2); Hemolysis Index 6
[2020-12-14 07:49] LABS: Fibrinogen 120 mg/dl (211-480)
[2020-12-14] MEDS ORDERED: SODIUM CHLORIDE 0.9% 500 ML 500 ML IV NR (09:53)
--- NOTE | 2020-12-14 10:18 | Progress Note ---
Assessment and Plan - Patient Problems (1) Acute myocardial infarction Current Visit: Yes Status: Acute (2) Pneumonia due to COVID-19 virus Current Visit: Yes Status: Acute (3) A-fib Current Visit: Yes Status: Acute Subjective Date of service: 12/14/20 Principal diagnosis: Ac hypoxemic resp failure; COVID-19 infection; Pneumonia; ARDS; DM II; HTN Interval history: ON THE VENT Objective Vital Signs Temp Pulse Pulse Resp BP Pulse Ox 12/14/20 10:00 156 H 12 85/58 12/14/20 09:46 155 H 22 85/58 96 12/14/20 09:30 136 H 12 104/56 91 12/14/20 09:16 152 H 23 110/53 97 12/14/20 09:00 148 H 24 88/54 97 12/14/20 08:46 136 H 13 119/70 100 12/14/20 08:30 122 H 19 80/56 100 12/14/20 08:15 133 H 17 91/54 100 12/14/20 08:00 99.9 F H 141 H 19 91/47 100 12/14/20 07:45 144 H 13 88/52 100 12/14/20 07:30 138 H 12 81/53 98 12/14/20 07:15 138 H 14 92/51 100 12/14/20 07:00 160 H 22 101/58 100 12/14/20 06:46 140 H 19 96/50 100 12/14/20 06:30 141 H 13 87/54 100 12/14/20 06:16 135 H 16 130/56 96 12/14/20 06:00 94 H 13 130/56 98 12/14/20 05:59 94 H 123/78 12/14/20 05:46 97 H 15 123/78 100 12/14/20 05:30 99 H 12 126/63 100 12/14/20 05:16 102 H 14 126/63 92 12/14/20 05:00 107 H 14 126/63 94 12/14/20 04:46 110 H 14 126/63 95 12/14/20 04:30 115 H 17 126/63 92 12/14/20 04:16 108 H 13 126/63 91 12/14/20 04:00 106 H 13 126/63 93 12/14/20 03:45 108 H 17 138/71 100 12/14/20 03:30 109 H 24 143/68 91 12/14/20 03:15 107 H 30 H 136/76 93 12/14/20 03:11 100.8 F H 12/14/20 03:00 108 H 34 H 166/64 90 12/14/20 02:45 114 H 33 H 156/74 92 12/14/20 02:30 107 H 22 149/71 90 12/14/20 02:15 108 H 19 147/73 92 12/14/20 02:00 109 H 34 H 138/69 89 12/14/20 01:45 105 H 31 H 120/66 93 12/14/20 01:30 105 H 36 H 124/67 92 12/14/20 01:15 115 H 29 H 131/66 96 12/14/20 01:00 110 H 45 H 132/60 84 12/14/20 00:45 111 H 26 H 127/61 85 12/14/20 00:30 111 H 16 117/62 87 12/14/20 00:15 107 H 19 121/64 85 12/14/20 00:00 100.4 F H 92 H 97 H 15 111/61 94 12/13/20 23:45 90 17 102/55 100 12/13/20 23:30 93 H 26 H 94/54 100 12/13/20 23:15 95 H 33 H 94/50 100 12/13/20 23:00 97 H 28 H 90/50 100 12/13/20 22:45 101 H 28 H 93/48 100 12/13/20 22:30 120 H 32 H 119/64 86 12/13/20 22:15 116 H 32 H 95/45 93 12/13/20 22:00 127 H 28 H 132/71 86 12/13/20 21:46 128 H 29 H 146/74 79 L 12/13/20 21:30 117 H 22 146/79 92 12/13/20 21:15 106 H 40 H 90/52 100 12/13/20 21:00 122 H 15 129/63 93 12/13/20 20:45 123 H 36 H 136/62 74 L 12/13/20 20:30 114 H 19 132/68 65 L 12/13/20 20:16 104 H 14 112/64 85 12/13/20 20:00 110 H 97 H 13 109/58 85 12/13/20 19:58 99.7 F H 12/13/20 19:45 109 H 14 104/49 88 12/13/20 19:30 100 H 29 H 123/64 78 L 12/13/20 19:15 33 H 119/57 90 12/13/20 19:00 106 H 21 128/65 89 12/13/20 18:45 103 H 15 146/67 99 12/13/20 18:30 91 H 24 95/50 100 12/13/20 18:15 94 H 22 109/52 100 12/13/20 18:04 98 H 24 118/64 97 12/13/20 18:00 103 H 24 118/64 98 12/13/20 17:54 103 H 153/63 12/13/20 17:45 100 H 11 L 153/63 92 12/13/20 17:30 111 H 14 148/80 93 12/13/20 17:16 104 H 11 L 133/52 92 12/13/20 17:00 105 H 16 113/59 95 12/13/20 16:45 99 H 13 106/61 92 12/13/20 16:30 98 H 20 103/53 100 12/13/20 16:15 109 H 22 127/71 100 12/13/20 16:05 97 H 97 H 24 100 12/13/20 16:00 99.9 F H 101 H 25 H 153/63 99 12/13/20 15:45 98 H 28 H 96/51 100 12/13/20 15:30 101 H 28 H 97/49 99 12/13/20 15:15 112 H 29 H 114/57 81 L 12/13/20 15:00 105 H 27 H 103/58 99 12/13/20 14:45 103 H 22 140/64 93 12/13/20 14:30 114 H 20 136/79 83 L 12/13/20 14:15 115 H 17 120/56 88 12/13/20 14:00 109 H 21 120/54 88 12/13/20 13:45 114 H 21 127/63 89 12/13/20 13:30 110 H 24 120/56 84 12/13/20 13:15 111 H 17 98/51 89 12/13/20 13:00 99 H 27 H 98/51 100 12/13/20 12:45 103 H 23 98/61 98 12/13/20 12:30 111 H 22 85/46 91 12/13/20 12:15 107 H 28 H 109/68 100 12/13/20 12:00 100.4 F H 96 H 114 H 27 H 97/50 97 12/13/20 11:45 111 H 22 119/56 90 12/13/20 11:30 114 H 12 105/50 91 12/13/20 11:15 119 H 22 122/56 87 12/13/20 11:01 117 H 15 122/56 93 12/13/20 11:00 100.6 F H 12/13/20 10:49 115 H 114/49 12/13/20 10:45 114 H 24 111/49 100 12/13/20 10:30 118 H 17 104/63 92 - Physical Examination General: Other (ON THE VENT',,,NOT EXAMINED DUE TO COVID') Neuro: Positive: Other (Patient sedated and intubated) Abdomen: Positive: Unremarkable, Soft - Labs and Meds Cardiac Enzymes 12/14/20 Range/Units 06:55 AST 86 H (5-40) units/L Lactate Dehydrogenase 2448 H (91-180) units/L Coagulation 12/14/20 Range/Units 06:55 PT 17.5 H (12.2-14.9) Sec. INR 1.37 H (0.87-1.13) Lipids 12/14/20 Range/Units 08:38 Triglycerides 327 H (2-149) mg/dL CBC 12/14/20 Range/Units 06:55 WBC 18.7 H (4.5-11.0) K/mm3 RBC 2.27 L (3.65-5.03) M/mm3 Hgb 5.9 L* (10.1-14.3) gm/dl Hct 19.6 L* (30.3-42.9) % Plt Count 58 L (140-440) K/mm3 Comprehensive Metabolic Panel 12/14/20 Range/Units 06:55 Sodium 147 H (137-145) mmol/L Potassium 5.3 H (3.6-5.0) mmol/L Chloride 116.7 H (98-107) mmol/L Carbon Dioxide 22 (22-30) mmol/L BUN 55 H (7-17) mg/dL Creatinine 1.0 (0.6-1.2) mg/dL Glucose 368 H (65-100) mg/dL Calcium 8.5 (8.4-10.2) mg/dL AST 86 H (5-40) units/L ALT 16 (7-56) units/L Alkaline Phosphatase 270 H (35-129) units/L Total Protein 5.2 L (6.3-8.2) g/dL Albumin 2.7 L (3.9-5) g/dL - Allied health notes Allied health notes reviewed: nursing
[2020-12-14] MEDS: METOCLOPRAMIDE 10 MG/2 ML INJ IV SCH ×3 (10:34→17:32)
[2020-12-14] MEDS: FREE WATER PO SCH ×4 (10:35→17:13)
[2020-12-14] MEDS: DOCUSATE SODIUM 100 MG/10 ML ORAL LIQD FEEDTUBE SCH ×2 (10:36→22:13)
[2020-12-14] MEDS: SENNOSIDES/DOCUSATE SODIUM 8.6/50 MG TAB FEEDTUBE SCH (10:36)
[2020-12-14] MEDS: ASPIRIN 81 MG TAB CHEW PO SCH (10:36)
[2020-12-14] MEDS: CLOPIDOGREL 75 MG TAB PO SCH (10:36)
[2020-12-14] MEDS: PANTOPRAZOLE 40 MG INJ IV SCH ×2 (10:36→22:13)
[2020-12-14] MEDS: methylPREDNISolone Sod Succinate 125 MG/2 ML INJ IV SCH ×2 (10:37→22:13)
[2020-12-14] MEDS: CHOLECALCIFEROL (VIT D3) 5,000 UNIT TAB PO SCH (10:37)
[2020-12-14] MEDS: ZINC SULFATE 220 MG CAP PO SCH (10:37)
[2020-12-14] MEDS: ASCORBIC ACID 500 MG TAB PO SCH ×2 (10:37→22:13)
[2020-12-14] MEDS: dilTIAZem/D5W 100 MG/100 ML BAG IV SCH ×2 (11:09→21:09)
[2020-12-14] MEDS ORDERED: INSULIN GLARGINE 100 UNITS/ML SUB-Q ONE (12:00)
--- NOTE | 2020-12-14 14:21 | Progress Note ---
Assessment and Plan Cultures: SARS CoV2 PCR: Positive 12/02/2020 blood culture: no growth A/P: 65-year-old female with diabetes, hypertension admitted with: #Shock, multifactorial, probably due to severe COVID, ?cardiogenic. No clear bacterial infection identified. #Bilateral pneumonia: Secondary to COVID-19. Severe disease. #Acute hypoxic respiratory failure: Secondary to above. Failed BiPAP, now on the vent. #Diabetes mellitus, uncontrolled: HbA1c 9.5 #ST elevation DE: Cardiology on board. #Bleeding, anemia Recs: -continue steroids, at least 10 days -Status post 5 days of remdesivir, s/p Actemra -Completed antibiotics. -Prognosis remains extremely poor Stanford Interiano MD [facility] O: [phone] F: [phone] Subjective Date of service: 12/14/20 Principal diagnosis: Ac hypoxemic resp failure; COVID-19 infection; Pneumonia; ARDS; DM II; HTN Objective - Constitutional Vitals: Vital Signs Temp Pulse Resp BP Pulse Ox 99.5 F 140 H 12 90/46 96 12/14/20 12:00 12/14/20 11:09 12/14/20 10:00 12/14/20 11:09 12/14/20 09:46 Temperature -Last 24 Hours Temperature 99.5 F Temperature 99.9 F Temperature 100.8 F Temperature 100.4 F Temperature 99.7 F Temperature 99.9 F Temperature 99.9 F - Labs CBC & Chem 7: 12/14/20 06:55 12/14/20 06:55 Labs: Abnormal lab results 12/13/20 12/13/20 12/14/20 Range/Units 17:39 23:50 04:59 WBC (4.5-11.0) K/mm3 RBC (3.65-5.03) M/mm3 Hgb (10.1-14.3) gm/dl Hct (30.3-42.9) % MCH (28-32) pg RDW (13.2-15.2) % Plt Count (140-440) K/mm3 PT (12.2-14.9) Sec. INR (0.87-1.13) Fibrinogen (211-480) mg/dl D-Dimer (0-234) ng/mlDDU ABG O2 Saturation (95.0-99.0) % ABG Hemoglobin (12.0-16.0) gm/dl Oxyhemoglobin (95.0-99.0) % Sodium (137-145) mmol/L Potassium (3.6-5.0) mmol/L Chloride (98-107) mmol/L BUN (7-17) mg/dL Glucose (65-100) mg/dL POC Glucose 257 H 288 H 362 H (70-105) mg/dL Ferritin (10.0-200.0) ng/mL AST (5-40) units/L Alkaline Phosphatase (35-129) units/L Lactate Dehydrogenase (91-180) units/L C-Reactive Protein (0.00-1.30) mg/dL Total Protein (6.3-8.2) g/dL Albumin (3.9-5) g/dL Triglycerides (2-149) mg/dL 12/14/20 12/14/20 12/14/20 Range/Units 06:25 06:55 06:55 WBC 18.7 H (4.5-11.0) K/mm3 RBC 2.27 L (3.65-5.03) M/mm3 Hgb 5.9 L* (10.1-14.3) gm/dl Hct 19.6 L* (30.3-42.9) % MCH 26 L (28-32) pg RDW 20.7 H (13.2-15.2) % Plt Count 58 L (140-440) K/mm3 PT 17.5 H (12.2-14.9) Sec. INR 1.37 H (0.87-1.13) Fibrinogen 120 L* (211-480) mg/dl D-Dimer > 60667 H (0-234) ng/mlDDU ABG O2 Saturation 75.8 L (95.0-99.0) % ABG Hemoglobin 5.8 L (12.0-16.0) gm/dl Oxyhemoglobin 73.5 L (95.0-99.0) % Sodium (137-145) mmol/L Potassium (3.6-5.0) mmol/L Chloride (98-107) mmol/L BUN (7-17) mg/dL Glucose (65-100) mg/dL POC Glucose (70-105) mg/dL Ferritin (10.0-200.0) ng/mL AST (5-40) units/L Alkaline Phosphatase (35-129) units/L Lactate Dehydrogenase (91-180) units/L C-Reactive Protein (0.00-1.30) mg/dL Total Protein (6.3-8.2) g/dL Albumin (3.9-5) g/dL Triglycerides (2-149) mg/dL 12/14/20 12/14/20 12/14/20 Range/Units 06:55 06:55 08:38 WBC (4.5-11.0) K/mm3 RBC (3.65-5.03) M/mm3 Hgb (10.1-14.3) gm/dl Hct (30.3-42.9) % MCH (28-32) pg RDW (13.2-15.2) % Plt Count (140-440) K/mm3 PT (12.2-14.9) Sec. INR (0.87-1.13) Fibrinogen (211-480) mg/dl D-Dimer (0-234) ng/mlDDU ABG O2 Saturation (95.0-99.0) % ABG Hemoglobin (12.0-16.0) gm/dl Oxyhemoglobin (95.0-99.0) % Sodium 147 H (137-145) mmol/L Potassium 5.3 H (3.6-5.0) mmol/L Chloride 116.7 H (98-107) mmol/L BUN 55 H (7-17) mg/dL Glucose 368 H (65-100) mg/dL POC Glucose (70-105) mg/dL Ferritin 398.2 H (10.0-200.0) ng/mL AST 86 H (5-40) units/L Alkaline Phosphatase 270 H (35-129) units/L Lactate Dehydrogenase 2448 H (91-180) units/L C-Reactive Protein 9.10 H (0.00-1.30) mg/dL Total Protein 5.2 L (6.3-8.2) g/dL Albumin 2.7 L (3.9-5) g/dL Triglycerides 327 H (2-149) mg/dL 12/14/20 Range/Units 11:42 WBC (4.5-11.0) K/mm3 RBC (3.65-5.03) M/mm3 Hgb (10.1-14.3) gm/dl Hct (30.3-42.9) % MCH (28-32) pg RDW (13.2-15.2) % Plt Count (140-440) K/mm3 PT (12.2-14.9) Sec. INR (0.87-1.13) Fibrinogen (211-480) mg/dl D-Dimer (0-234) ng/mlDDU ABG O2 Saturation (95.0-99.0) % ABG Hemoglobin (12.0-16.0) gm/dl Oxyhemoglobin (95.0-99.0) % Sodium (137-145) mmol/L Potassium (3.6-5.0) mmol/L Chloride (98-107) mmol/L BUN (7-17) mg/dL Glucose (65-100) mg/dL POC Glucose 454 H (70-105) mg/dL Ferritin (10.0-200.0) ng/mL AST (5-40) units/L Alkaline Phosphatase (35-129) units/L Lactate Dehydrogenase (91-180) units/L C-Reactive Protein (0.00-1.30) mg/dL Total Protein (6.3-8.2) g/dL Albumin (3.9-5) g/dL Triglycerides (2-149) mg/dL
--- NOTE | 2020-12-14 14:28 | Progress Note ---
Assessment and Plan 65-year-old female with COVID pneumonia intubated on pressors with inability to be anticoagulated. Patient has deep tissue injury with inability to palpate the left radial artery. Arterial ultrasound demonstrated occluded left distal radial artery. Left first and second digit have deep tissue injury and there is ischemia of the third digit. Could be distal embolization or flow related issues secondary to occlusion likely from repeated arterial blood gas. Unfortunately, patient is actively ill with Covid pneumonia and is on pressors and cannot be anticoagulated. Not candidate for intervention. Once patient can be anticoagulated, recommend anticoagulation. Hematology has seen patient and ordered HIT panel. Recommend weaning pressors as soon as possible, if possible. Once these interventions can be performed, then repeat arterial ultrasound can be obtained. Overall, poor prognosis. Subjective Date of service: 12/14/20 Principal diagnosis: Ac hypoxemic resp failure; COVID-19 infection; Pneumonia; ARDS; DM II; HTN Interval history: Intubated. On pressors. Cannot be anticoagulated due to bleeding issues. Palpable right radial pulse and right dorsalis pedis pulse with duskiness of the fingers and toes. Nonpalpable left radial pulse with ischemia of the first and second digit with deep tissue injury and decreased capillary refill, and ischemia of the third digit without deep tissue injury with capillary refill between 2 and 3 seconds. Fourth and fifth digit have normal capillary refill without evidence of ischemia. Left dorsalis pedis is palpable with duskiness of the toes. Objective - Constitutional Vitals: Vital Signs - 12hr 12/14/20 12/14/20 12/14/20 02:30 02:45 03:00 Temperature Pulse Rate 107 H 114 H 108 H Pulse Rate [ From Monitor] Respiratory 22 33 H 34 H Rate Blood Pressure 149/71 156/74 166/64 O2 Sat by Pulse 90 92 90 Oximetry 12/14/20 12/14/20 12/14/20 03:11 03:15 03:30 Temperature 100.8 F H Pulse Rate 107 H 109 H Pulse Rate [ From Monitor] Respiratory 30 H 24 Rate Blood Pressure 136/76 143/68 O2 Sat by Pulse 93 91 Oximetry 12/14/20 12/14/20 12/14/20 03:45 04:00 04:16 Temperature Pulse Rate 108 H 106 H 108 H Pulse Rate [ From Monitor] Respiratory 17 13 13 Rate Blood Pressure 138/71 126/63 126/63 O2 Sat by Pulse 100 93 91 Oximetry 12/14/20 12/14/20 12/14/20 04:30 04:46 05:00 Temperature Pulse Rate 115 H 110 H 107 H Pulse Rate [ From Monitor] Respiratory 17 14 14 Rate Blood Pressure 126/63 126/63 126/63 O2 Sat by Pulse 92 95 94 Oximetry 12/14/20 12/14/20 12/14/20 05:16 05:30 05:46 Temperature Pulse Rate 102 H 99 H 97 H Pulse Rate [ From Monitor] Respiratory 14 12 15 Rate Blood Pressure 126/63 126/63 123/78 O2 Sat by Pulse 92 100 100 Oximetry 12/14/20 12/14/20 12/14/20 05:59 06:00 06:16 Temperature Pulse Rate 94 H 94 H 135 H Pulse Rate [ From Monitor] Respiratory 13 16 Rate Blood Pressure 123/78 130/56 130/56 O2 Sat by Pulse 98 96 Oximetry 12/14/20 12/14/20 12/14/20 06:30 06:46 07:00 Temperature Pulse Rate 141 H 140 H 160 H Pulse Rate [ From Monitor] Respiratory 13 19 22 Rate Blood Pressure 87/54 96/50 101/58 O2 Sat by Pulse 100 100 100 Oximetry 12/14/20 12/14/20 12/14/20 07:15 07:30 07:45 Temperature Pulse Rate 138 H 138 H 144 H Pulse Rate [ From Monitor] Respiratory 14 12 13 Rate Blood Pressure 92/51 81/53 88/52 O2 Sat by Pulse 100 98 100 Oximetry 12/14/20 12/14/20 12/14/20 08:00 08:15 08:30 Temperature 99.9 F H Pulse Rate 141 H 133 H 122 H Pulse Rate [ 141 H From Monitor] Respiratory 19 17 19 Rate Blood Pressure 91/47 91/54 80/56 O2 Sat by Pulse 100 100 100 Oximetry 12/14/20 12/14/20 12/14/20 08:46 09:00 09:16 Temperature Pulse Rate 136 H 148 H 152 H Pulse Rate [ From Monitor] Respiratory 13 24 23 Rate Blood Pressure 119/70 88/54 110/53 O2 Sat by Pulse 100 97 97 Oximetry 12/14/20 12/14/20 12/14/20 09:30 09:46 10:00 Temperature Pulse Rate 136 H 155 H 156 H Pulse Rate [ From Monitor] Respiratory 12 22 12 Rate Blood Pressure 104/56 85/58 85/58 O2 Sat by Pulse 91 96 Oximetry 12/14/20 12/14/20 11:09 12:00 Temperature 99.5 F Pulse Rate 140 H Pulse Rate [ From Monitor] Respiratory Rate Blood Pressure 90/46 O2 Sat by Pulse Oximetry General appearance: Present: other (Intubated) - EENT ENT: other (Intubated) - Respiratory Respiratory effort: other (Intubated) Extremities: abnormal (See subjective) Extremity abnormal: other (See subjective) - Psychiatric Psychiatric: other (Intubated) - Labs CBC & Chem 7: 12/14/20 06:55 12/14/20 06:55 Labs: Abnormal lab results 12/13/20 12/13/20 12/14/20 Range/Units 17:39 23:50 04:59 WBC (4.5-11.0) K/mm3 RBC (3.65-5.03) M/mm3 Hgb (10.1-14.3) gm/dl Hct (30.3-42.9) % MCH (28-32) pg RDW (13.2-15.2) % Plt Count (140-440) K/mm3 PT (12.2-14.9) Sec. INR (0.87-1.13) Fibrinogen (211-480) mg/dl D-Dimer (0-234) ng/mlDDU ABG O2 Saturation (95.0-99.0) % ABG Hemoglobin (12.0-16.0) gm/dl Oxyhemoglobin (95.0-99.0) % Sodium (137-145) mmol/L Potassium (3.6-5.0) mmol/L Chloride (98-107) mmol/L BUN (7-17) mg/dL Glucose (65-100) mg/dL POC Glucose 257 H 288 H 362 H (70-105) mg/dL Ferritin (10.0-200.0) ng/mL AST (5-40) units/L Alkaline Phosphatase (35-129) units/L Lactate Dehydrogenase (91-180) units/L C-Reactive Protein (0.00-1.30) mg/dL Total Protein (6.3-8.2) g/dL Albumin (3.9-5) g/dL Triglycerides (2-149) mg/dL 12/14/20 12/14/20 12/14/20 Range/Units 06:25 06:55 06:55 WBC 18.7 H (4.5-11.0) K/mm3 RBC 2.27 L (3.65-5.03) M/mm3 Hgb 5.9 L* (10.1-14.3) gm/dl Hct 19.6 L* (30.3-42.9) % MCH 26 L (28-32) pg RDW 20.7 H (13.2-15.2) % Plt Count 58 L (140-440) K/mm3 PT 17.5 H (12.2-14.9) Sec. INR 1.37 H (0.87-1.13) Fibrinogen 120 L* (211-480) mg/dl D-Dimer > 21620 H (0-234) ng/mlDDU ABG O2 Saturation 75.8 L (95.0-99.0) % ABG Hemoglobin 5.8 L (12.0-16.0) gm/dl Oxyhemoglobin 73.5 L (95.0-99.0) % Sodium (137-145) mmol/L Potassium (3.6-5.0) mmol/L Chloride (98-107) mmol/L BUN (7-17) mg/dL Glucose (65-100) mg/dL POC Glucose (70-105) mg/dL Ferritin (10.0-200.0) ng/mL AST (5-40) units/L Alkaline Phosphatase (35-129) units/L Lactate Dehydrogenase (91-180) units/L C-Reactive Protein (0.00-1.30) mg/dL Total Protein (6.3-8.2) g/dL Albumin (3.9-5) g/dL Triglycerides (2-149) mg/dL 12/14/20 12/14/20 12/14/20 Range/Units 06:55 06:55 08:38 WBC (4.5-11.0) K/mm3 RBC (3.65-5.03) M/mm3 Hgb (10.1-14.3) gm/dl Hct (30.3-42.9) % MCH (28-32) pg RDW (13.2-15.2) % Plt Count (140-440) K/mm3 PT (12.2-14.9) Sec. INR (0.87-1.13) Fibrinogen (211-480) mg/dl D-Dimer (0-234) ng/mlDDU ABG O2 Saturation (95.0-99.0) % ABG Hemoglobin (12.0-16.0) gm/dl Oxyhemoglobin (95.0-99.0) % Sodium 147 H (137-145) mmol/L Potassium 5.3 H (3.6-5.0) mmol/L Chloride 116.7 H (98-107) mmol/L BUN 55 H (7-17) mg/dL Glucose 368 H (65-100) mg/dL POC Glucose (70-105) mg/dL Ferritin 398.2 H (10.0-200.0) ng/mL AST 86 H (5-40) units/L Alkaline Phosphatase 270 H (35-129) units/L Lactate Dehydrogenase 2448 H (91-180) units/L C-Reactive Protein 9.10 H (0.00-1.30) mg/dL Total Protein 5.2 L (6.3-8.2) g/dL Albumin 2.7 L (3.9-5) g/dL Triglycerides 327 H (2-149) mg/dL 12/14/20 Range/Units 11:42 WBC (4.5-11.0) K/mm3 RBC (3.65-5.03) M/mm3 Hgb (10.1-14.3) gm/dl Hct (30.3-42.9) % MCH (28-32) pg RDW (13.2-15.2) % Plt Count (140-440) K/mm3 PT (12.2-14.9) Sec. INR (0.87-1.13) Fibrinogen (211-480) mg/dl D-Dimer (0-234) ng/mlDDU ABG O2 Saturation (95.0-99.0) % ABG Hemoglobin (12.0-16.0) gm/dl Oxyhemoglobin (95.0-99.0) % Sodium (137-145) mmol/L Potassium (3.6-5.0) mmol/L Chloride (98-107) mmol/L BUN (7-17) mg/dL Glucose (65-100) mg/dL POC Glucose 454 H (70-105) mg/dL Ferritin (10.0-200.0) ng/mL AST (5-40) units/L Alkaline Phosphatase (35-129) units/L Lactate Dehydrogenase (91-180) units/L C-Reactive Protein (0.00-1.30) mg/dL Total Protein (6.3-8.2) g/dL Albumin (3.9-5) g/dL Triglycerides (2-149) mg/dL Medications & Allergies - Medications Allergies/Adverse Reactions: Allergies shellfish derived Allergy (Verified 12/02/20 03:37) Unknown Home Medications: Home Medications Medication Instructions Recorded Confirmed Last Taken Type Hby-Jnl-Mejm 334-134-5 mg Tab 3 mg PO DAILY 12/03/20 12/03/20 12/02/20 History Iron 65 mg PO DAILY 12/03/20 12/03/20 12/02/20 History Lisinopril/Hydrochlorothiazide 20 mg PO DAILY 12/03/20 12/03/20 Unknown History Metformin HCl [metFORMIN] 1,000 mg PO BID 12/03/20 12/03/20 12/02/20 History Simvastatin 40 mg PO DAILY 12/03/20 12/03/20 Unknown History glipiZIDE 10 mg PO DAILY 12/03/20 12/03/20 Unknown History Active Medications: Generic Name Dose Route Start Last Admin Trade Name Freq PRN Reason Stop Dose Admin Acetaminophen 650 mg 12/02/20 05:09 12/12/20 18:19 Acetaminophen 325 Mg Tab PO 650 mg Q4H PRN Administration Pain MILD(1-3)/Fever >100.5/LARA Albuterol 2.5 mg 12/02/20 05:09 Albuterol 2.5 Mg/3 Ml Nebu IH Q3HRT PRN Shortness Of Breath Lipase/Protease/Amylase 1 each 12/09/20 10:32 Lipase 10,500/Protease 25,000/Amylase 43,750 (Units) Dr Fong FEEDTUBE PRN PRN For Clogged Feeding Tube Ascorbic Acid 500 mg 12/03/20 22:00 12/14/20 10:37 Ascorbic Acid 500 Mg Tab PO 500 mg BID AZAEL Administration Aspirin 81 mg 12/08/20 13:00 12/14/20 10:36 Aspirin 81 Mg Tab Chew PO Not Given QDAY AZAEL Atorvastatin Calcium 40 mg 12/08/20 22:00 12/13/20 21:54 Atorvastatin 40 Mg Tab PO 40 mg QHS AZAEL Administration Cholecalciferol 5,000 unit 12/02/20 10:00 12/14/20 10:37 Cholecalciferol (Vit D3) 5,000 Unit Tab PO 5,000 unit DAILY AZAEL Administration Clopidogrel Bisulfate 75 mg 12/09/20 10:00 12/14/20 10:36 Clopidogrel 75 Mg Tab PO Not Given QDAY AZAEL Dextrose 50 ml 12/02/20 05:09 12/05/20 08:09 Dextrose 50% In Water (25gm) 50 Ml Syringe IV 50 ml Q30MIN PRN Administration Hypoglycemia Protocol Docusate Sodium 100 mg 12/14/20 10:00 12/14/20 10:36 Docusate Sodium 100 Mg/10 Ml Oral Liqd FEEDTUBE 100 mg BID AZAEL Administration Fentanyl 50 mcg 12/08/20 15:13 Fentanyl 100 Mcg/2 Ml Inj IV Q10MIN PRN ANALGESIA Hydrophilic Ointment 1 applic 12/08/20 15:56 Lip Therapy Vaseline TP Q2HR PRN Dry Lips Fentanyl Citrate 2,000 mcg in 100 mls @ 3.243 mls/hr 12/08/20 16:00 12/14/20 14:03 Fentanyl Drip Premix IV 4 mcg/kg/hr TITR AZAEL 12.973 mls/hr Administration Protocol 1 MCG/KG/HR NORepinephrine/NS 8 MG-250 ML 8 mg in 250 mls @ 3.75 mls/hr 12/08/20 16:00 12/14/20 11:10 Norepinephrine/Ns 8 Mg-250 Ml (Double Conc) IV 6 mcg/min TITRATE AZAEL 11.25 mls/hr Titration Protocol 2 MCG/MIN Propofol 1,000 mg in 100 mls @ 1.946 mls/hr 12/08/20 17:00 12/14/20 14:04 Diprivan 10 Mg/Ml IV 35 mcg/kg/min TITR AZAEL 13.621 mls/hr Titration Protocol 5 MCG/KG/MIN Sodium Chloride 500 mls @ 1 mls/hr 12/08/20 17:19 12/13/20 14:10 Nacl 0.9% 500 Ml IV 250 mls/hr DIRECT PRN Administration ARTERIAL LINE FLUSH Vasopressin 20 unit/ Sodium 101 mls @ 9.09 mls/hr 12/10/20 04:00 12/12/20 12:00 Chloride IV Infused TITR AZAEL Titration Protocol 0.03 UNITS/MIN Sodium Chloride 500 mls @ 0 mls/hr 12/14/20 09:53 Nacl 0.9% 500 Ml IV 12/14/20 23:59 ONCE NR As Directed Diltiazem HCl 100 mg in 100 mls @ 5 mls/hr 12/14/20 11:00 12/14/20 14:03 Cardizem/D5w 100mg/100ml IV 10 mg/hr TITR AZAEL 10 mls/hr Titration Protocol 5 MG/HR Insulin Glargine 25 units 12/14/20 22:00 Insulin Glargine 100 Units/Ml SUB-Q QHS [facility] Insulin Human Lispro 0 unit 12/09/20 12:00 12/14/20 10:35 Insulin Lispro 100 Unit/Ml SUB-Q Not Given Q6HR [facility] Protocol Methylprednisolone Sodium Succinate 60 mg 12/13/20 11:00 12/14/20 10:37 Methylprednisolone Sod Succinate 125 Mg/2 Ml Inj IV 12/16/20 10:59 60 mg Q12H [facility] Administration Metoclopramide HCl 5 mg 12/11/20 12:00 12/14/20 10:34 Metoclopramide 10 Mg/2 Ml Inj IV Not Given Q6H [facility] Multi-Ingred Cream/Lotion/Oil/Oint 1 applic 12/08/20 15:56 Mineral Oil/Petrolatum, White Ophth Oint 3.5 Gm OU Q4HR PRN Dry Eye(s) Nitroglycerin 1 inch 12/08/20 14:00 12/14/20 10:36 Nitroglycerin 2% Oint 1 Gm TP Not Given QIDNTG [facility] Protocol Ondansetron HCl 4 mg 12/02/20 05:09 Ondansetron 4 Mg/2 Ml Inj IV Q6H PRN Nausea And Vomiting Pantoprazole Sodium 40 mg 12/13/20 10:00 12/14/20 10:36 Pantoprazole 40 Mg Inj IV 40 mg BID [facility] Administration Senna/Docusate Sodium 1 tab 12/08/20 22:00 12/14/20 10:36 Sennosides/Docusate Sodium 8.6/50 Mg Tab FEEDTUBE 1 tab BID AZAEL Administration Simple Syrup 30 ml 12/09/20 10:32 Simple Syrup 15 Ml FEEDTUBE PRN PRN Hypoglycemia Sodium Bicarbonate 325 mg 12/09/20 10:32 Sodium Bicarbonate 325 Mg Tab FEEDTUBE PRN PRN For Clogged Feeding Tube Sodium Chloride 10 ml 12/02/20 10:00 12/14/20 10:36 Sodium Chloride 0.9% 10 Ml Flush Syringe IV 10 ml BID AZAEL Administration Sodium Chloride 10 ml 12/02/20 05:09 Sodium Chloride 0.9% 10 Ml Flush Syringe IV PRN PRN LINE FLUSH Zinc Sulfate 220 mg 12/02/20 10:00 12/14/20 10:37 Zinc Sulfate 220 Mg Cap PO 220 mg QDAY AZAEL Administration HEART Score - HEART Score Troponin: Troponin T 0.487 ng/mL (0.00-0.029) H* D 12/09/20 13:08
--- NOTE | 2020-12-14 14:59 | Progress Note ---
Assessment and Plan Acute hypoxemic respiratory failure COVID-19 infection STEMI Bilateral pneumonia Acute respiratory distress syndrome DM II Hypertension Elevated serum inflammatory markers to include LDH, ferritin and D-dimers Anemia - for 2 units PRBC's - fibrinogen per swatch cutter - FiO2 reduced to 85% - will accept O2 sats > 88% to avoid increasing peep and oxygen toxicity at higher FiO2's - get lactic acid level and trend - cardizem drip started for SVT in 170's - follow HIT assay - continuing Plavix and ASA re: STEMI - appreciate vascular surgery input - supportive transfusions for serum Hb < 7.0 - continue to wean vasopressors for target MAP > 65 mmHg - aggressive medical therapy for STEMI otherwise per cardiology - continue daily SAT's & SBT assessment as tolerated - VAP bundle addressed - continue care as below otherwise; - continue bronchodilators with pulmonary hygiene per RT - continue accuchecks with glycemic control per SSI (While critically ill target blood glucose of 140-180 mg/dL; avoid hypoglycemia) - avoid nephrotoxins, renally dose all medications - continue to avoid benzodiazepine's, reduce the possibility of delirium - completed Anti-infective's per ID rec's - prn analgesia per pain score - Maintenance of sleep-wake cycle, avoid delirium - G.I. & VTE prophylaxis - PT/OT/ROM exercises - mobility protocols for pressure ulcer prophylaxis - Monitor hemodynamics closely - continue other care per attending / other consultants COVID SPECIFIC INTERVENTIONS - Remdesivir as per ID/Pulmonary developed protocols (receiving) - continue systemic steroids for severe COVID-19 infection (Decadron) - follow repeat COVID tests results - zinc and vitamin C supplementation - Monitor inflammatory markers per facility protocol - ferritin, Ddimer, CRP - therapeutic anticoagulation per system Protocol based on d-dimer and clinical considerations (VTE Prophylaxis) - Continue contact and airborne isolation .... Re-evaluate in am & prn CONDITION: CRITICAL PROGNOSIS: GRAVE CODE STATUS: FULL CODE The high probability of a clinically significant, sudden or life-threatening deterioration of the [respiratory, cardiovascular & neurologic] system(s) r equired my full and direct attention, intervention and personal management. The aggregate critical care time was [35] minutes without overlap. Time includes spent on; [x] Data Review and interpretation [x] Patient assessment and monitoring of vital signs [x] Documentation [x] Medication orders and management Subjective Date of service: 12/14/20 Principal diagnosis: Ac hypoxemic resp failure; COVID-19 infection; Pneumonia; ARDS; DM II; HTN Interval history: Patient is seen today for: Acute hypoxemic respiratory failure; COVID-19 infection; Pneumonia; ARDS; DM II; HTN Seen and examined at bedside; 24hour events reviewed; nursing and respiratory care staff consulted; no adverse overnight events reported to me; resting in bed; remains on MVS; remains with digital ischemia; FiO2 bumped to 100% overnight but some room top wean now; Hb is 5.9 today; no gross G.I. bleeding and tolerating tube feeds Objective Vital Signs - 12hr 12/14/20 12/14/20 12/14/20 03:00 03:11 03:15 Temperature 100.8 F H Pulse Rate 108 H 107 H Pulse Rate [ From Monitor] Respiratory 34 H 30 H Rate Blood Pressure 166/64 136/76 O2 Sat by Pulse 90 93 Oximetry 12/14/20 12/14/20 12/14/20 03:30 03:45 04:00 Temperature Pulse Rate 109 H 108 H 106 H Pulse Rate [ From Monitor] Respiratory 24 17 13 Rate Blood Pressure 143/68 138/71 126/63 O2 Sat by Pulse 91 100 93 Oximetry 12/14/20 12/14/20 12/14/20 04:16 04:30 04:46 Temperature Pulse Rate 108 H 115 H 110 H Pulse Rate [ From Monitor] Respiratory 13 17 14 Rate Blood Pressure 126/63 126/63 126/63 O2 Sat by Pulse 91 92 95 Oximetry 12/14/20 12/14/20 12/14/20 05:00 05:16 05:30 Temperature Pulse Rate 107 H 102 H 99 H Pulse Rate [ From Monitor] Respiratory 14 14 12 Rate Blood Pressure 126/63 126/63 126/63 O2 Sat by Pulse 94 92 100 Oximetry 12/14/20 12/14/20 12/14/20 05:46 05:59 06:00 Temperature Pulse Rate 97 H 94 H 94 H Pulse Rate [ From Monitor] Respiratory 15 13 Rate Blood Pressure 123/78 123/78 130/56 O2 Sat by Pulse 100 98 Oximetry 12/14/20 12/14/20 12/14/20 06:16 06:30 06:46 Temperature Pulse Rate 135 H 141 H 140 H Pulse Rate [ From Monitor] Respiratory 16 13 19 Rate Blood Pressure 130/56 87/54 96/50 O2 Sat by Pulse 96 100 100 Oximetry 12/14/20 12/14/20 12/14/20 07:00 07:15 07:30 Temperature Pulse Rate 160 H 138 H 138 H Pulse Rate [ From Monitor] Respiratory 22 14 12 Rate Blood Pressure 101/58 92/51 81/53 O2 Sat by Pulse 100 100 98 Oximetry 12/14/20 12/14/20 12/14/20 07:45 08:00 08:15 Temperature 99.9 F H Pulse Rate 144 H 141 H 133 H Pulse Rate [ 141 H From Monitor] Respiratory 13 19 17 Rate Blood Pressure 88/52 91/47 91/54 O2 Sat by Pulse 100 100 100 Oximetry 12/14/20 12/14/20 12/14/20 08:30 08:46 09:00 Temperature Pulse Rate 122 H 136 H 148 H Pulse Rate [ From Monitor] Respiratory 19 13 24 Rate Blood Pressure 80/56 119/70 88/54 O2 Sat by Pulse 100 100 97 Oximetry 12/14/20 12/14/20 12/14/20 09:16 09:30 09:46 Temperature Pulse Rate 152 H 136 H 155 H Pulse Rate [ From Monitor] Respiratory 23 12 22 Rate Blood Pressure 110/53 104/56 85/58 O2 Sat by Pulse 97 91 96 Oximetry 12/14/20 12/14/20 12/14/20 10:00 10:16 10:30 Temperature Pulse Rate 156 H 139 H 139 H Pulse Rate [ From Monitor] Respiratory 12 16 14 Rate Blood Pressure 85/58 109/57 110/56 O2 Sat by Pulse 77 L 79 L Oximetry 12/14/20 12/14/20 12/14/20 10:46 11:00 11:09 Temperature Pulse Rate 147 H 135 H 140 H Pulse Rate [ From Monitor] Respiratory 14 12 Rate Blood Pressure 116/69 115/58 90/46 O2 Sat by Pulse 100 Oximetry 12/14/20 12/14/20 12/14/20 11:16 11:30 11:45 Temperature Pulse Rate 160 H 147 H 141 H Pulse Rate [ From Monitor] Respiratory 14 10 L 19 Rate Blood Pressure 123/58 94/58 87/51 O2 Sat by Pulse 83 L 92 100 Oximetry 12/14/20 12/14/20 12/14/20 12:00 12:15 12:30 Temperature 99.5 F Pulse Rate 154 H 138 H 122 H Pulse Rate [ 141 H From Monitor] Respiratory 24 12 11 L Rate Blood Pressure 88/46 130/59 115/74 O2 Sat by Pulse 100 90 91 Oximetry 12/14/20 12/14/20 12/14/20 12:45 13:00 13:15 Temperature Pulse Rate 132 H 140 H 134 H Pulse Rate [ From Monitor] Respiratory 15 9 L 11 L Rate Blood Pressure 130/68 106/58 115/56 O2 Sat by Pulse 91 96 86 Oximetry 12/14/20 12/14/20 12/14/20 13:30 13:46 14:00 Temperature Pulse Rate 135 H 131 H 132 H Pulse Rate [ From Monitor] Respiratory 13 10 L 15 Rate Blood Pressure 107/50 98/51 105/60 O2 Sat by Pulse 91 90 Oximetry 12/14/20 14:15 Temperature Pulse Rate 128 H Pulse Rate [ From Monitor] Respiratory 14 Rate Blood Pressure 105/63 O2 Sat by Pulse 100 Oximetry Constitutional: appears uncomfortable, other (elderly female with mildly incre ased respiratory effort at rest on MVS) Eyes: non-icteric ENT: oropharynx moist, other (ETT 23 cm JENNIFER) Neck: supple, no lymphadenopathy, no JVD Effort: mildly labored Ascultation: Bilateral: rhonchi Percussion: Bilateral: not dull Cardiovascular: regular rate and rhythm Gastrointestinal: normoactive bowel sounds, soft, non-tender, non-distended Integumentary: normal Extremities: no cyanosis, no edema, pulses normal, other (+ digital ischemia and cyanosis to hands and feet) Neurologic: non-focal exam, pupils equal and round, unable to assess, other (sedated) Psychiatric: other (unable to assess re: AMS) CBC and BMP: 12/14/20 06:55 12/14/20 06:55 ABG, PT/INR, D-dimer: ABG ABG pH Not Reportable 12/14/20 06:25 POC ABG pCO2 45.9 mmHg (32.0-48.0) 12/13/20 04:00 ABG pCO2 Not Reportable 12/14/20 06:25 POC ABG pO2 56.6 mmHg (83-108) L 12/13/20 04:00 ABG pO2 Not Reportable 12/14/20 06:25 POC ABG HCO3 25.4 12/13/20 04:00 ABG O2 Saturation 75.8 % (95.0-99.0) L 12/14/20 06:25 PT/INR, D-dimer PT 17.5 Sec. (12.2-14.9) H 12/14/20 06:55 INR 1.37 (0.87-1.13) H 12/14/20 06:55 D-Dimer > 23379 ng/mlDDU (0-234) H 12/14/20 06:55 Abnormal lab findings: Abnormal Labs 12/02/20 12/02/20 12/02/20 03:58 03:58 03:58 WBC RBC 3.57 L Hgb 8.9 L Hct 27.2 L MCV 76 L MCH 25 L RDW 17.6 H Plt Count Lymph % (Auto) 6.7 L Lymph # (Auto) 0.3 L Seg Neutrophils % 87.7 H Seg Neuts % (Manual) Lymphocytes % (Manual) Nucleated RBC % Seg Neutrophils # Man Lymphocytes # (Manual) PT INR APTT Fibrinogen D-Dimer 1559.33 H Heparin Anti-Xa Level ABG pH POC ABG pCO2 POC ABG pO2 ABG O2 Saturation ABG Hemoglobin ABG Oxyhemoglobin ABG Sodium ABG Potassium ABG Chloride ABG Glucose Oxyhemoglobin Carboxyhemoglobin Sodium 130 L Potassium Chloride 90.0 L Carbon Dioxide BUN 20 H Creatinine Glucose 346 H POC Glucose Hemoglobin A1c Lactic Acid Calcium Phosphorus Magnesium 2.40 H Ferritin AST 43 H Alkaline Phosphatase Lactate Dehydrogenase 582 H Total Creatine Kinase CK-MB (CK-2) CK-MB (CK-2) Rel Index Troponin T C-Reactive Protein 34.20 H NT-Pro-B Natriuret Pep Total Protein Albumin 3.1 L Triglycerides LDL Cholesterol Direct HDL Cholesterol Arterial Blood Glucose Arterial Blood Ionized Calcium Coronavirus (PCR) Crossmatch 12/02/20 12/02/20 12/02/20 03:58 06:15 07:37 WBC RBC Hgb Hct MCV MCH RDW Plt Count Lymph % (Auto) Lymph # (Auto) Seg Neutrophils % Seg Neuts % (Manual) Lymphocytes % (Manual) Nucleated RBC % Seg Neutrophils # Man Lymphocytes # (Manual) PT INR APTT Fibrinogen D-Dimer Heparin Anti-Xa Level ABG pH POC ABG pCO2 POC ABG pO2 ABG O2 Saturation ABG Hemoglobin ABG Oxyhemoglobin ABG Sodium ABG Potassium ABG Chloride ABG Glucose Oxyhemoglobin Carboxyhemoglobin Sodium Potassium Chloride Carbon Dioxide BUN Creatinine Glucose POC Glucose 339 H Hemoglobin A1c 9.5 H Lactic Acid Calcium Phosphorus Magnesium Ferritin 497.6 H AST Alkaline Phosphatase Lactate Dehydrogenase Total Creatine Kinase CK-MB (CK-2) CK-MB (CK-2) Rel Index Troponin T C-Reactive Protein NT-Pro-B Natriuret Pep Total Protein Albumin Triglycerides LDL Cholesterol Direct HDL Cholesterol Arterial Blood Glucose Arterial Blood Ionized Calcium Coronavirus (PCR) Crossmatch 12/02/20 12/02/20 12/02/20 08:15 11:52 13:29 WBC RBC Hgb 9.7 L Hct MCV MCH RDW Plt Count Lymph % (Auto) Lymph # (Auto) Seg Neutrophils % Seg Neuts % (Manual) Lymphocytes % (Manual) Nucleated RBC % Seg Neutrophils # Man Lymphocytes # (Manual) PT INR APTT Fibrinogen D-Dimer Heparin Anti-Xa Level ABG pH POC ABG pCO2 POC ABG pO2 ABG O2 Saturation ABG Hemoglobin ABG Oxyhemoglobin ABG Sodium ABG Potassium ABG Chloride ABG Glucose Oxyhemoglobin Carboxyhemoglobin Sodium Potassium Chloride Carbon Dioxide BUN Creatinine Glucose POC Glucose 305 H Hemoglobin A1c Lactic Acid Calcium Phosphorus Magnesium Ferritin AST Alkaline Phosphatase Lactate Dehydrogenase Total Creatine Kinase CK-MB (CK-2) CK-MB (CK-2) Rel Index Troponin T C-Reactive Protein NT-Pro-B Natriuret Pep Total Protein Albumin Triglycerides LDL Cholesterol Direct HDL Cholesterol Arterial Blood Glucose Arterial Blood Ionized Calcium Coronavirus (PCR) Positive A Crossmatch 12/02/20 12/02/20 12/02/20 16:53 22:39 23:39 WBC RBC Hgb Hct MCV MCH RDW Plt Count Lymph % (Auto) Lymph # (Auto) Seg Neutrophils % Seg Neuts % (Manual) Lymphocytes % (Manual) Nucleated RBC % Seg Neutrophils # Man Lymphocytes # (Manual) PT INR APTT Fibrinogen D-Dimer Heparin Anti-Xa Level ABG pH POC ABG pCO2 POC ABG pO2 ABG O2 Saturation ABG Hemoglobin ABG Oxyhemoglobin ABG Sodium ABG Potassium ABG Chloride ABG Glucose Oxyhemoglobin Carboxyhemoglobin Sodium 131 L Potassium Chloride 93.8 L Carbon Dioxide BUN 22 H Creatinine Glucose 301 H POC Glucose 281 H 290 H Hemoglobin A1c Lactic Acid Calcium Phosphorus Magnesium Ferritin AST Alkaline Phosphatase Lactate Dehydrogenase Total Creatine Kinase CK-MB (CK-2) CK-MB (CK-2) Rel Index Troponin T C-Reactive Protein NT-Pro-B Natriuret Pep Total Protein 6.2 L Albumin 2.8 L Triglycerides LDL Cholesterol Direct HDL Cholesterol Arterial Blood Glucose Arterial Blood Ionized Calcium Coronavirus (PCR) Crossmatch 12/03/20 12/03/20 12/03/20 03:48 03:48 08:59 WBC RBC 3.46 L Hgb 8.6 L Hct 26.5 L MCV 77 L MCH 25 L RDW 18.2 H Plt Count Lymph % (Auto) Lymph # (Auto) Seg Neutrophils % Seg Neuts % (Manual) 93.0 H Lymphocytes % (Manual) 3.0 L Nucleated RBC % Seg Neutrophils # Man Lymphocytes # (Manual) 0.2 L PT INR APTT Fibrinogen D-Dimer Heparin Anti-Xa Level ABG pH POC ABG pCO2 POC ABG pO2 ABG O2 Saturation ABG Hemoglobin ABG Oxyhemoglobin ABG Sodium ABG Potassium ABG Chloride ABG Glucose Oxyhemoglobin Carboxyhemoglobin Sodium 131 L Potassium Chloride 92.5 L Carbon Dioxide BUN 22 H Creatinine Glucose 279 H POC Glucose 258 H Hemoglobin A1c Lactic Acid Calcium 8.2 L Phosphorus Magnesium Ferritin AST Alkaline Phosphatase Lactate Dehydrogenase Total Creatine Kinase CK-MB (CK-2) CK-MB (CK-2) Rel Index Troponin T C-Reactive Protein NT-Pro-B Natriuret Pep Total Protein 5.6 L Albumin 2.8 L Triglycerides LDL Cholesterol Direct HDL Cholesterol Arterial Blood Glucose Arterial Blood Ionized Calcium Coronavirus (PCR) Crossmatch 12/03/20 12/03/20 12/03/20 12:45 15:57 17:01 WBC RBC Hgb Hct MCV MCH RDW Plt Count Lymph % (Auto) Lymph # (Auto) Seg Neutrophils % Seg Neuts % (Manual) Lymphocytes % (Manual) Nucleated RBC % Seg Neutrophils # Man Lymphocytes # (Manual) PT INR APTT Fibrinogen D-Dimer Heparin Anti-Xa Level ABG pH 7.527 H POC ABG pCO2 POC ABG pO2 50.4 L ABG O2 Saturation ABG Hemoglobin ABG Oxyhemoglobin ABG Sodium 129.8 L ABG Potassium ABG Chloride 95.0 L ABG Glucose 394 H Oxyhemoglobin Carboxyhemoglobin Sodium Potassium Chloride Carbon Dioxide BUN Creatinine Glucose POC Glucose 349 H 359 H Hemoglobin A1c Lactic Acid Calcium Phosphorus Magnesium Ferritin AST Alkaline Phosphatase Lactate Dehydrogenase Total Creatine Kinase CK-MB (CK-2) CK-MB (CK-2) Rel Index Troponin T C-Reactive Protein NT-Pro-B Natriuret Pep Total Protein Albumin Triglycerides LDL Cholesterol Direct HDL Cholesterol Arterial Blood Glucose 394 H Arterial Blood Ionized Calcium Coronavirus (PCR) Crossmatch 12/03/20 12/04/20 12/04/20 21:16 04:27 06:49 WBC RBC Hgb Hct MCV MCH RDW Plt Count Lymph % (Auto) Lymph # (Auto) Seg Neutrophils % Seg Neuts % (Manual) Lymphocytes % (Manual) Nucleated RBC % Seg Neutrophils # Man Lymphocytes # (Manual) PT INR APTT Fibrinogen D-Dimer Heparin Anti-Xa Level ABG pH 7.530 H POC ABG pCO2 POC ABG pO2 37.6 L ABG O2 Saturation ABG Hemoglobin 9.6 L ABG Oxyhemoglobin 72.5 L ABG Sodium 132.3 L ABG Potassium ABG Chloride ABG Glucose 180 H Oxyhemoglobin Carboxyhemoglobin 0.4 L Sodium 136 L Potassium Chloride 97.3 L Carbon Dioxide BUN 23 H Creatinine Glucose 166 H POC Glucose 295 H Hemoglobin A1c Lactic Acid Calcium Phosphorus Magnesium Ferritin AST Alkaline Phosphatase Lactate Dehydrogenase Total Creatine Kinase CK-MB (CK-2) CK-MB (CK-2) Rel Index Troponin T C-Reactive Protein NT-Pro-B Natriuret Pep Total Protein 5.7 L Albumin 2.6 L Triglycerides LDL Cholesterol Direct HDL Cholesterol Arterial Blood Glucose 180 H Arterial Blood Ionized Calcium Coronavirus (PCR) Crossmatch 12/04/20 12/04/20 12/04/20 07:49 11:37 16:22 WBC RBC Hgb Hct MCV MCH RDW Plt Count Lymph % (Auto) Lymph # (Auto) Seg Neutrophils % Seg Neuts % (Manual) Lymphocytes % (Manual) Nucleated RBC % Seg Neutrophils # Man Lymphocytes # (Manual) PT INR APTT Fibrinogen D-Dimer Heparin Anti-Xa Level ABG pH POC ABG pCO2 POC ABG pO2 ABG O2 Saturation ABG Hemoglobin ABG Oxyhemoglobin ABG Sodium ABG Potassium ABG Chloride ABG Glucose Oxyhemoglobin Carboxyhemoglobin Sodium Potassium Chloride Carbon Dioxide BUN Creatinine Glucose POC Glucose 180 H 213 H 177 H Hemoglobin A1c Lactic Acid Calcium Phosphorus Magnesium Ferritin AST Alkaline Phosphatase Lactate Dehydrogenase Total Creatine Kinase CK-MB (CK-2) CK-MB (CK-2) Rel Index Troponin T C-Reactive Protein NT-Pro-B Natriuret Pep Total Protein Albumin Triglycerides LDL Cholesterol Direct HDL Cholesterol Arterial Blood Glucose Arterial Blood Ionized Calcium Coronavirus (PCR) Crossmatch 12/04/20 12/04/20 12/05/20 22:21 23:12 05:16 WBC RBC Hgb Hct MCV MCH RDW Plt Count Lymph % (Auto) Lymph # (Auto) Seg Neutrophils % Seg Neuts % (Manual) Lymphocytes % (Manual) Nucleated RBC % Seg Neutrophils # Man Lymphocytes # (Manual) PT INR APTT Fibrinogen D-Dimer Heparin Anti-Xa Level ABG pH 7.494 H POC ABG pCO2 POC ABG pO2 56.3 L ABG O2 Saturation ABG Hemoglobin 8.6 L ABG Oxyhemoglobin 88.3 L ABG Sodium 131.8 L ABG Potassium ABG Chloride ABG Glucose 205 H Oxyhemoglobin Carboxyhemoglobin 0.3 L Sodium Potassium Chloride Carbon Dioxide BUN 19 H Creatinine Glucose 64 L POC Glucose 207 H Hemoglobin A1c Lactic Acid Calcium Phosphorus Magnesium Ferritin AST Alkaline Phosphatase Lactate Dehydrogenase Total Creatine Kinase CK-MB (CK-2) CK-MB (CK-2) Rel Index Troponin T C-Reactive Protein NT-Pro-B Natriuret Pep Total Protein 6.0 L Albumin 2.8 L Triglycerides LDL Cholesterol Direct HDL Cholesterol Arterial Blood Glucose 205 H Arterial Blood Ionized Calcium Coronavirus (PCR) Crossmatch 12/05/20 12/05/20 12/05/20 08:01 09:07 12:31 WBC RBC Hgb Hct MCV MCH RDW Plt Count Lymph % (Auto) Lymph # (Auto) Seg Neutrophils % Seg Neuts % (Manual) Lymphocytes % (Manual) Nucleated RBC % Seg Neutrophils # Man Lymphocytes # (Manual) PT INR APTT Fibrinogen D-Dimer Heparin Anti-Xa Level ABG pH POC ABG pCO2 POC ABG pO2 ABG O2 Saturation ABG Hemoglobin ABG Oxyhemoglobin ABG Sodium ABG Potassium ABG Chloride ABG Glucose Oxyhemoglobin Carboxyhemoglobin Sodium Potassium Chloride Carbon Dioxide BUN Creatinine Glucose POC Glucose 49 L 157 H 113 H Hemoglobin A1c Lactic Acid Calcium Phosphorus Magnesium Ferritin AST Alkaline Phosphatase Lactate Dehydrogenase Total Creatine Kinase CK-MB (CK-2) CK-MB (CK-2) Rel Index Troponin T C-Reactive Protein NT-Pro-B Natriuret Pep Total Protein Albumin Triglycerides LDL Cholesterol Direct HDL Cholesterol Arterial Blood Glucose Arterial Blood Ionized Calcium Coronavirus (PCR) Crossmatch 12/05/20 12/06/20 12/06/20 16:57 07:51 12:07 WBC RBC Hgb Hct MCV MCH RDW Plt Count Lymph % (Auto) Lymph # (Auto) Seg Neutrophils % Seg Neuts % (Manual) Lymphocytes % (Manual) Nucleated RBC % Seg Neutrophils # Man Lymphocytes # (Manual) PT INR APTT Fibrinogen D-Dimer Heparin Anti-Xa Level ABG pH POC ABG pCO2 POC ABG pO2 ABG O2 Saturation ABG Hemoglobin ABG Oxyhemoglobin ABG Sodium ABG Potassium ABG Chloride ABG Glucose Oxyhemoglobin Carboxyhemoglobin Sodium Potassium Chloride Carbon Dioxide BUN Creatinine Glucose POC Glucose 223 H 110 H 229 H Hemoglobin A1c Lactic Acid Calcium Phosphorus Magnesium Ferritin AST Alkaline Phosphatase Lactate Dehydrogenase Total Creatine Kinase CK-MB (CK-2) CK-MB (CK-2) Rel Index Troponin T C-Reactive Protein NT-Pro-B Natriuret Pep Total Protein Albumin Triglycerides LDL Cholesterol Direct HDL Cholesterol Arterial Blood Glucose Arterial Blood Ionized Calcium Coronavirus (PCR) Crossmatch 12/06/20 12/06/20 12/06/20 14:56 16:00 18:53 WBC RBC Hgb 9.6 L Hct MCV MCH RDW Plt Count Lymph % (Auto) Lymph # (Auto) Seg Neutrophils % Seg Neuts % (Manual) Lymphocytes % (Manual) Nucleated RBC % Seg Neutrophils # Man Lymphocytes # (Manual) PT INR APTT Fibrinogen D-Dimer > 16971 H Heparin Anti-Xa Level ABG pH POC ABG pCO2 POC ABG pO2 ABG O2 Saturation ABG Hemoglobin ABG Oxyhemoglobin ABG Sodium ABG Potassium ABG Chloride ABG Glucose Oxyhemoglobin Carboxyhemoglobin Sodium Potassium Chloride Carbon Dioxide BUN Creatinine Glucose POC Glucose 235 H Hemoglobin A1c Lactic Acid Calcium Phosphorus Magnesium Ferritin AST Alkaline Phosphatase Lactate Dehydrogenase Total Creatine Kinase CK-MB (CK-2) CK-MB (CK-2) Rel Index Troponin T C-Reactive Protein NT-Pro-B Natriuret Pep Total Protein Albumin Triglycerides LDL Cholesterol Direct HDL Cholesterol Arterial Blood Glucose Arterial Blood Ionized Calcium Coronavirus (PCR) Crossmatch 12/06/20 12/06/20 12/07/20 18:53 23:15 07:03 WBC RBC Hgb Hct MCV MCH RDW Plt Count Lymph % (Auto) Lymph # (Auto) Seg Neutrophils % Seg Neuts % (Manual) Lymphocytes % (Manual) Nucleated RBC % Seg Neutrophils # Man Lymphocytes # (Manual) PT 17.4 H INR 1.37 H APTT Fibrinogen D-Dimer Heparin Anti-Xa Level ABG pH POC ABG pCO2 POC ABG pO2 ABG O2 Saturation ABG Hemoglobin ABG Oxyhemoglobin ABG Sodium ABG Potassium ABG Chloride ABG Glucose Oxyhemoglobin Carboxyhemoglobin Sodium Potassium Chloride Carbon Dioxide BUN 23 H Creatinine Glucose 62 L POC Glucose 170 H Hemoglobin A1c Lactic Acid Calcium Phosphorus Magnesium Ferritin AST Alkaline Phosphatase Lactate Dehydrogenase Total Creatine Kinase CK-MB (CK-2) CK-MB (CK-2) Rel Index Troponin T C-Reactive Protein NT-Pro-B Natriuret Pep Total Protein Albumin Triglycerides LDL Cholesterol Direct HDL Cholesterol Arterial Blood Glucose Arterial Blood Ionized Calcium Coronavirus (PCR) Crossmatch 12/07/20 12/07/20 12/07/20 07:03 07:28 17:45 WBC RBC Hgb Hct MCV MCH RDW Plt Count Lymph % (Auto) Lymph # (Auto) Seg Neutrophils % Seg Neuts % (Manual) Lymphocytes % (Manual) Nucleated RBC % Seg Neutrophils # Man Lymphocytes # (Manual) PT INR APTT Fibrinogen D-Dimer Heparin Anti-Xa Level 0.85 H ABG pH POC ABG pCO2 POC ABG pO2 ABG O2 Saturation ABG Hemoglobin ABG Oxyhemoglobin ABG Sodium ABG Potassium ABG Chloride ABG Glucose Oxyhemoglobin Carboxyhemoglobin Sodium Potassium Chloride Carbon Dioxide BUN Creatinine Glucose POC Glucose 54 L 196 H Hemoglobin A1c Lactic Acid Calcium Phosphorus Magnesium Ferritin AST Alkaline Phosphatase Lactate Dehydrogenase Total Creatine Kinase CK-MB (CK-2) CK-MB (CK-2) Rel Index Troponin T C-Reactive Protein NT-Pro-B Natriuret Pep Total Protein Albumin Triglycerides LDL Cholesterol Direct HDL Cholesterol Arterial Blood Glucose Arterial Blood Ionized Calcium Coronavirus (PCR) Crossmatch 12/07/20 12/08/20 12/08/20 21:26 13:11 13:25 WBC RBC Hgb Hct MCV MCH RDW Plt Count Lymph % (Auto) Lymph # (Auto) Seg Neutrophils % Seg Neuts % (Manual) Lymphocytes % (Manual) Nucleated RBC % Seg Neutrophils # Man Lymphocytes # (Manual) PT INR APTT Fibrinogen D-Dimer Heparin Anti-Xa Level ABG pH POC ABG pCO2 POC ABG pO2 ABG O2 Saturation ABG Hemoglobin ABG Oxyhemoglobin ABG Sodium ABG Potassium ABG Chloride ABG Glucose Oxyhemoglobin Carboxyhemoglobin Sodium Potassium Chloride Carbon Dioxide BUN Creatinine Glucose POC Glucose 165 H 62 L Hemoglobin A1c Lactic Acid Calcium Phosphorus Magnesium Ferritin AST Alkaline Phosphatase Lactate Dehydrogenase Total Creatine Kinase 520 H CK-MB (CK-2) 33.2 H CK-MB (CK-2) Rel Index 6.3 H Troponin T 0.646 H* C-Reactive Protein NT-Pro-B Natriuret Pep Total Protein Albumin Triglycerides 181 H LDL Cholesterol Direct 30 L HDL Cholesterol 35 L Arterial Blood Glucose Arterial Blood Ionized Calcium Coronavirus (PCR) Crossmatch 12/08/20 12/08/20 12/08/20 15:36 18:05 20:15 WBC RBC Hgb Hct MCV MCH RDW Plt Count Lymph % (Auto) Lymph # (Auto) Seg Neutrophils % Seg Neuts % (Manual) Lymphocytes % (Manual) Nucleated RBC % Seg Neutrophils # Man Lymphocytes # (Manual) PT INR APTT Fibrinogen D-Dimer Heparin Anti-Xa Level ABG pH 7.117 L POC ABG pCO2 61.7 H POC ABG pO2 39.7 L ABG O2 Saturation ABG Hemoglobin 9.0 L ABG Oxyhemoglobin 46.0 L ABG Sodium 135.7 L ABG Potassium 4.6 H ABG Chloride ABG Glucose 235 H Oxyhemoglobin Carboxyhemoglobin Sodium Potassium Chloride Carbon Dioxide BUN Creatinine Glucose POC Glucose 163 H Hemoglobin A1c Lactic Acid Calcium Phosphorus Magnesium Ferritin AST Alkaline Phosphatase Lactate Dehydrogenase Total Creatine Kinase 521 H CK-MB (CK-2) 31.5 H CK-MB (CK-2) Rel Index 6.0 H Troponin T 0.648 H* C-Reactive Protein NT-Pro-B Natriuret Pep 1573 H Total Protein Albumin Triglycerides LDL Cholesterol Direct HDL Cholesterol Arterial Blood Glucose 235 H Arterial Blood Ionized Calcium Coronavirus (PCR) Crossmatch 12/08/20 12/08/20 12/08/20 20:15 20:15 20:15 WBC 24.0 H RBC 3.35 L Hgb 8.1 L Hct 26.0 L D MCV 78 L MCH 24 L RDW 18.5 H Plt Count Lymph % (Auto) Lymph # (Auto) Seg Neutrophils % Seg Neuts % (Manual) 91.0 H Lymphocytes % (Manual) 5.0 L Nucleated RBC % Seg Neutrophils # Man 21.8 H Lymphocytes # (Manual) PT INR APTT 62.9 H* Fibrinogen D-Dimer > 78207 H Heparin Anti-Xa Level ABG pH POC ABG pCO2 POC ABG pO2 ABG O2 Saturation ABG Hemoglobin ABG Oxyhemoglobin ABG Sodium ABG Potassium ABG Chloride ABG Glucose Oxyhemoglobin Carboxyhemoglobin Sodium Potassium 5.1 H D Chloride Carbon Dioxide BUN 27 H Creatinine Glucose 186 H POC Glucose Hemoglobin A1c Lactic Acid Calcium 7.8 L Phosphorus 5.50 H Magnesium 2.40 H Ferritin AST 126 H Alkaline Phosphatase 298 H Lactate Dehydrogenase 2677 H Total Creatine Kinase CK-MB (CK-2) CK-MB (CK-2) Rel Index Troponin T C-Reactive Protein NT-Pro-B Natriuret Pep Total Protein 4.9 L Albumin 2.6 L Triglycerides LDL Cholesterol Direct HDL Cholesterol Arterial Blood Glucose Arterial Blood Ionized Calcium Coronavirus (PCR) Crossmatch 12/08/20 12/08/20 12/09/20 21:00 22:03 06:00 WBC RBC Hgb Hct MCV MCH RDW Plt Count Lymph % (Auto) Lymph # (Auto) Seg Neutrophils % Seg Neuts % (Manual) Lymphocytes % (Manual) Nucleated RBC % Seg Neutrophils # Man Lymphocytes # (Manual) PT INR APTT Fibrinogen D-Dimer Heparin Anti-Xa Level 0.85 H ABG pH 7.318 L POC ABG pCO2 51.9 H POC ABG pO2 74.6 L ABG O2 Saturation ABG Hemoglobin 8.9 L ABG Oxyhemoglobin 90.8 L ABG Sodium ABG Potassium 4.9 H ABG Chloride ABG Glucose 141 H Oxyhemoglobin Carboxyhemoglobin Sodium Potassium Chloride Carbon Dioxide BUN Creatinine Glucose POC Glucose 163 H Hemoglobin A1c Lactic Acid Calcium Phosphorus Magnesium Ferritin AST Alkaline Phosphatase Lactate Dehydrogenase Total Creatine Kinase CK-MB (CK-2) CK-MB (CK-2) Rel Index Troponin T C-Reactive Protein NT-Pro-B Natriuret Pep Total Protein Albumin Triglycerides LDL Cholesterol Direct HDL Cholesterol Arterial Blood Glucose 141 H Arterial Blood Ionized Calcium 4.5 L Coronavirus (PCR) Crossmatch 12/09/20 12/09/20 12/09/20 08:13 11:53 13:08 WBC RBC Hgb Hct MCV MCH RDW Plt Count Lymph % (Auto) Lymph # (Auto) Seg Neutrophils % Seg Neuts % (Manual) Lymphocytes % (Manual) Nucleated RBC % Seg Neutrophils # Man Lymphocytes # (Manual) PT INR APTT Fibrinogen D-Dimer Heparin Anti-Xa Level 0.94 H ABG pH POC ABG pCO2 50.7 H POC ABG pO2 156.4 H ABG O2 Saturation ABG Hemoglobin 8.7 L ABG Oxyhemoglobin ABG Sodium 134.9 L ABG Potassium 5.4 H ABG Chloride ABG Glucose 140 H Oxyhemoglobin Carboxyhemoglobin Sodium Potassium Chloride Carbon Dioxide BUN Creatinine Glucose POC Glucose 127 H Hemoglobin A1c Lactic Acid Calcium Phosphorus Magnesium Ferritin AST Alkaline Phosphatase Lactate Dehydrogenase Total Creatine Kinase CK-MB (CK-2) CK-MB (CK-2) Rel Index Troponin T C-Reactive Protein NT-Pro-B Natriuret Pep Total Protein Albumin Triglycerides LDL Cholesterol Direct HDL Cholesterol Arterial Blood Glucose 140 H Arterial Blood Ionized Calcium 4.2 L Coronavirus (PCR) Crossmatch 12/09/20 12/09/20 12/09/20 13:08 13:08 13:08 WBC 20.8 H RBC 3.35 L Hgb 8.3 L Hct 26.2 L MCV 78 L MCH 25 L RDW 19.5 H Plt Count Lymph % (Auto) Lymph # (Auto) Seg Neutrophils % Seg Neuts % (Manual) Lymphocytes % (Manual) Nucleated RBC % Seg Neutrophils # Man Lymphocytes # (Manual) PT 15.2 H INR 1.15 H APTT 84.5 H* Fibrinogen D-Dimer 4051.67 H Heparin Anti-Xa Level ABG pH POC ABG pCO2 POC ABG pO2 ABG O2 Saturation ABG Hemoglobin ABG Oxyhemoglobin ABG Sodium ABG Potassium ABG Chloride ABG Glucose Oxyhemoglobin Carboxyhemoglobin Sodium Potassium Chloride Carbon Dioxide BUN 34 H Creatinine 1.4 H Glucose 156 H POC Glucose Hemoglobin A1c Lactic Acid Calcium 8.1 L Phosphorus Magnesium Ferritin AST 97 H Alkaline Phosphatase 241 H Lactate Dehydrogenase Total Creatine Kinase CK-MB (CK-2) CK-MB (CK-2) Rel Index Troponin T C-Reactive Protein NT-Pro-B Natriuret Pep Total Protein 5.2 L Albumin 2.7 L Triglycerides LDL Cholesterol Direct HDL Cholesterol Arterial Blood Glucose Arterial Blood Ionized Calcium Coronavirus (PCR) Crossmatch 12/09/20 12/09/20 12/09/20 13:08 13:08 13:08 WBC RBC Hgb Hct MCV MCH RDW Plt Count Lymph % (Auto) Lymph # (Auto) Seg Neutrophils % Seg Neuts % (Manual) Lymphocytes % (Manual) Nucleated RBC % Seg Neutrophils # Man Lymphocytes # (Manual) PT INR APTT Fibrinogen D-Dimer Heparin Anti-Xa Level ABG pH POC ABG pCO2 POC ABG pO2 ABG O2 Saturation ABG Hemoglobin ABG Oxyhemoglobin ABG Sodium ABG Potassium ABG Chloride ABG Glucose Oxyhemoglobin Carboxyhemoglobin Sodium Potassium Chloride Carbon Dioxide BUN Creatinine Glucose POC Glucose Hemoglobin A1c Lactic Acid 2.50 H* Calcium Phosphorus 4.70 H Magnesium 2.70 H Ferritin 472.6 H AST Alkaline Phosphatase Lactate Dehydrogenase 2146 H Total Creatine Kinase CK-MB (CK-2) CK-MB (CK-2) Rel Index Troponin T 0.487 H* D C-Reactive Protein 8.70 H NT-Pro-B Natriuret Pep Total Protein Albumin Triglycerides LDL Cholesterol Direct HDL Cholesterol Arterial Blood Glucose Arterial Blood Ionized Calcium Coronavirus (PCR) Crossmatch 12/09/20 12/09/20 12/09/20 13:08 17:17 23:43 WBC RBC Hgb Hct MCV MCH RDW Plt Count Lymph % (Auto) Lymph # (Auto) Seg Neutrophils % Seg Neuts % (Manual) Lymphocytes % (Manual) Nucleated RBC % Seg Neutrophils # Man Lymphocytes # (Manual) PT INR APTT Fibrinogen D-Dimer Heparin Anti-Xa Level ABG pH POC ABG pCO2 POC ABG pO2 ABG O2 Saturation ABG Hemoglobin ABG Oxyhemoglobin ABG Sodium ABG Potassium ABG Chloride ABG Glucose Oxyhemoglobin Carboxyhemoglobin Sodium Potassium Chloride Carbon Dioxide BUN Creatinine Glucose POC Glucose 179 H 144 H Hemoglobin A1c Lactic Acid Calcium Phosphorus Magnesium Ferritin AST Alkaline Phosphatase Lactate Dehydrogenase Total Creatine Kinase CK-MB (CK-2) CK-MB (CK-2) Rel Index Troponin T C-Reactive Protein NT-Pro-B Natriuret Pep 2396 H Total Protein Albumin Triglycerides LDL Cholesterol Direct HDL Cholesterol Arterial Blood Glucose Arterial Blood Ionized Calcium Coronavirus (PCR) Crossmatch 12/10/20 12/10/20 12/10/20 02:39 03:08 04:10 WBC 19.2 H RBC 2.76 L Hgb 6.7 L Hct 21.7 L MCV MCH 24 L RDW 19.3 H Plt Count Lymph % (Auto) Lymph # (Auto) Seg Neutrophils % Seg Neuts % (Manual) 95.0 H Lymphocytes % (Manual) 1.0 L Nucleated RBC % 3.0 H Seg Neutrophils # Man 18.2 H Lymphocytes # (Manual) 0.2 L PT INR APTT Fibrinogen D-Dimer Heparin Anti-Xa Level ABG pH POC ABG pCO2 POC ABG pO2 ABG O2 Saturation ABG Hemoglobin 6.3 L ABG Oxyhemoglobin 93.8 L ABG Sodium ABG Potassium ABG Chloride 108.0 H ABG Glucose 237 H Oxyhemoglobin Carboxyhemoglobin Sodium Potassium Chloride Carbon Dioxide BUN Creatinine Glucose POC Glucose Hemoglobin A1c Lactic Acid Calcium Phosphorus Magnesium Ferritin AST Alkaline Phosphatase Lactate Dehydrogenase Total Creatine Kinase CK-MB (CK-2) CK-MB (CK-2) Rel Index Troponin T C-Reactive Protein NT-Pro-B Natriuret Pep Total Protein Albumin Triglycerides LDL Cholesterol Direct HDL Cholesterol Arterial Blood Glucose 237 H Arterial Blood Ionized Calcium 4.3 L Coronavirus (PCR) Crossmatch See Detail 12/10/20 12/10/20 12/10/20 05:42 07:43 11:47 WBC RBC Hgb Hct MCV MCH RDW Plt Count Lymph % (Auto) Lymph # (Auto) Seg Neutrophils % Seg Neuts % (Manual) Lymphocytes % (Manual) Nucleated RBC % Seg Neutrophils # Man Lymphocytes # (Manual) PT INR APTT Fibrinogen D-Dimer Heparin Anti-Xa Level ABG pH POC ABG pCO2 POC ABG pO2 ABG O2 Saturation ABG Hemoglobin ABG Oxyhemoglobin ABG Sodium ABG Potassium ABG Chloride ABG Glucose Oxyhemoglobin Carboxyhemoglobin Sodium Potassium Chloride Carbon Dioxide BUN 39 H Creatinine 1.5 H Glucose 218 H POC Glucose 209 H 208 H Hemoglobin A1c Lactic Acid Calcium 7.9 L Phosphorus Magnesium Ferritin AST Alkaline Phosphatase Lactate Dehydrogenase Total Creatine Kinase CK-MB (CK-2) CK-MB (CK-2) Rel Index Troponin T C-Reactive Protein NT-Pro-B Natriuret Pep Total Protein Albumin Triglycerides LDL Cholesterol Direct HDL Cholesterol Arterial Blood Glucose Arterial Blood Ionized Calcium Coronavirus (PCR) Crossmatch 12/10/20 12/10/20 12/10/20 13:30 17:26 21:32 WBC RBC Hgb 7.8 L Hct 24.0 L MCV MCH RDW Plt Count Lymph % (Auto) Lymph # (Auto) Seg Neutrophils % Seg Neuts % (Manual) Lymphocytes % (Manual) Nucleated RBC % Seg Neutrophils # Man Lymphocytes # (Manual) PT INR APTT Fibrinogen D-Dimer Heparin Anti-Xa Level ABG pH POC ABG pCO2 POC ABG pO2 ABG O2 Saturation ABG Hemoglobin ABG Oxyhemoglobin ABG Sodium ABG Potassium ABG Chloride ABG Glucose Oxyhemoglobin Carboxyhemoglobin Sodium Potassium Chloride Carbon Dioxide BUN Creatinine Glucose POC Glucose 184 H 135 H Hemoglobin A1c Lactic Acid Calcium Phosphorus Magnesium Ferritin AST Alkaline Phosphatase Lactate Dehydrogenase Total Creatine Kinase CK-MB (CK-2) CK-MB (CK-2) Rel Index Troponin T C-Reactive Protein NT-Pro-B Natriuret Pep Total Protein Albumin Triglycerides LDL Cholesterol Direct HDL Cholesterol Arterial Blood Glucose Arterial Blood Ionized Calcium Coronavirus (PCR) Crossmatch 12/10/20 12/11/20 12/11/20 23:03 02:57 04:29 WBC RBC Hgb Hct MCV MCH RDW Plt Count Lymph % (Auto) Lymph # (Auto) Seg Neutrophils % Seg Neuts % (Manual) Lymphocytes % (Manual) Nucleated RBC % Seg Neutrophils # Man Lymphocytes # (Manual) PT INR APTT Fibrinogen D-Dimer Heparin Anti-Xa Level ABG pH POC ABG pCO2 POC ABG pO2 ABG O2 Saturation ABG Hemoglobin 7.4 L ABG Oxyhemoglobin ABG Sodium ABG Potassium ABG Chloride 110.0 H ABG Glucose 250 H Oxyhemoglobin Carboxyhemoglobin Sodium Potassium Chloride Carbon Dioxide BUN Creatinine Glucose POC Glucose 204 H Hemoglobin A1c Lactic Acid Calcium Phosphorus Magnesium Ferritin AST Alkaline Phosphatase Lactate Dehydrogenase Total Creatine Kinase CK-MB (CK-2) CK-MB (CK-2) Rel Index Troponin T C-Reactive Protein NT-Pro-B Natriuret Pep Total Protein Albumin Triglycerides 366 H LDL Cholesterol Direct HDL Cholesterol Arterial Blood Glucose 250 H Arterial Blood Ionized Calcium 4.4 L Coronavirus (PCR) Crossmatch 12/11/20 12/11/20 12/11/20 04:29 04:29 05:05 WBC 16.5 H RBC 2.60 L Hgb 7.0 L Hct 21.8 L MCV MCH 27 L RDW 18.4 H Plt Count 111 L Lymph % (Auto) Lymph # (Auto) Seg Neutrophils % Seg Neuts % (Manual) Lymphocytes % (Manual) Nucleated RBC % Seg Neutrophils # Man Lymphocytes # (Manual) PT INR APTT Fibrinogen D-Dimer Heparin Anti-Xa Level ABG pH POC ABG pCO2 POC ABG pO2 ABG O2 Saturation ABG Hemoglobin ABG Oxyhemoglobin ABG Sodium ABG Potassium ABG Chloride ABG Glucose Oxyhemoglobin Carboxyhemoglobin Sodium Potassium Chloride 107.5 H Carbon Dioxide BUN 45 H Creatinine 1.4 H Glucose 258 H POC Glucose 250 H Hemoglobin A1c Lactic Acid Calcium 7.7 L Phosphorus Magnesium 3.00 H Ferritin AST 78 H Alkaline Phosphatase 141 H Lactate Dehydrogenase Total Creatine Kinase CK-MB (CK-2) CK-MB (CK-2) Rel Index Troponin T C-Reactive Protein NT-Pro-B Natriuret Pep Total Protein 4.4 L Albumin 2.2 L Triglycerides LDL Cholesterol Direct HDL Cholesterol Arterial Blood Glucose Arterial Blood Ionized Calcium Coronavirus (PCR) Crossmatch 12/11/20 12/11/20 12/11/20 10:25 11:07 15:45 WBC RBC Hgb 6.7 L Hct 21.0 L MCV MCH RDW Plt Count Lymph % (Auto) Lymph # (Auto) Seg Neutrophils % Seg Neuts % (Manual) Lymphocytes % (Manual) Nucleated RBC % Seg Neutrophils # Man Lymphocytes # (Manual) PT INR APTT Fibrinogen D-Dimer Heparin Anti-Xa Level < 0.10 L ABG pH POC ABG pCO2 POC ABG pO2 ABG O2 Saturation ABG Hemoglobin ABG Oxyhemoglobin ABG Sodium ABG Potassium ABG Chloride ABG Glucose Oxyhemoglobin Carboxyhemoglobin Sodium Potassium Chloride Carbon Dioxide BUN Creatinine Glucose POC Glucose 225 H Hemoglobin A1c Lactic Acid Calcium Phosphorus Magnesium Ferritin AST Alkaline Phosphatase Lactate Dehydrogenase Total Creatine Kinase CK-MB (CK-2) CK-MB (CK-2) Rel Index Troponin T C-Reactive Protein NT-Pro-B Natriuret Pep Total Protein Albumin Triglycerides LDL Cholesterol Direct HDL Cholesterol Arterial Blood Glucose Arterial Blood Ionized Calcium Coronavirus (PCR) Crossmatch 12/11/20 12/11/20 12/11/20 15:45 16:21 17:54 WBC 17.2 H RBC 2.38 L Hgb 6.3 L Hct 19.6 L* MCV MCH 27 L RDW 18.8 H Plt Count 91 L Lymph % (Auto) Lymph # (Auto) Seg Neutrophils % Seg Neuts % (Manual) Lymphocytes % (Manual) Nucleated RBC % Seg Neutrophils # Man Lymphocytes # (Manual) PT 17.3 H INR 1.35 H APTT Fibrinogen 104 L* D-Dimer Heparin Anti-Xa Level ABG pH POC ABG pCO2 POC ABG pO2 ABG O2 Saturation ABG Hemoglobin ABG Oxyhemoglobin ABG Sodium ABG Potassium ABG Chloride ABG Glucose Oxyhemoglobin Carboxyhemoglobin Sodium Potassium Chloride Carbon Dioxide BUN Creatinine Glucose POC Glucose 259 H Hemoglobin A1c Lactic Acid Calcium Phosphorus Magnesium Ferritin AST Alkaline Phosphatase Lactate Dehydrogenase Total Creatine Kinase CK-MB (CK-2) CK-MB (CK-2) Rel Index Troponin T C-Reactive Protein NT-Pro-B Natriuret Pep Total Protein Albumin Triglycerides LDL Cholesterol Direct HDL Cholesterol Arterial Blood Glucose Arterial Blood Ionized Calcium Coronavirus (PCR) Crossmatch 12/11/20 12/11/20 12/11/20 21:28 23:19 Unknown WBC RBC Hgb 8.3 L Hct 26.0 L D MCV MCH RDW Plt Count Lymph % (Auto) Lymph # (Auto) Seg Neutrophils % Seg Neuts % (Manual) Lymphocytes % (Manual) Nucleated RBC % Seg Neutrophils # Man Lymphocytes # (Manual) PT INR APTT Fibrinogen D-Dimer Heparin Anti-Xa Level ABG pH POC ABG pCO2 POC ABG pO2 ABG O2 Saturation ABG Hemoglobin ABG Oxyhemoglobin ABG Sodium ABG Potassium ABG Chloride ABG Glucose Oxyhemoglobin Carboxyhemoglobin Sodium Potassium Chloride Carbon Dioxide BUN Creatinine Glucose POC Glucose 251 H 229 H Hemoglobin A1c Lactic Acid Calcium Phosphorus Magnesium Ferritin AST Alkaline Phosphatase Lactate Dehydrogenase Total Creatine Kinase CK-MB (CK-2) CK-MB (CK-2) Rel Index Troponin T C-Reactive Protein NT-Pro-B Natriuret Pep Total Protein Albumin Triglycerides LDL Cholesterol Direct HDL Cholesterol Arterial Blood Glucose Arterial Blood Ionized Calcium Coronavirus (PCR) Crossmatch 12/12/20 12/12/20 12/12/20 04:00 04:44 06:04 WBC 22.1 H RBC 3.21 L Hgb 8.4 L Hct 26.8 L MCV MCH 26 L RDW 19.5 H Plt Count 106 L Lymph % (Auto) Lymph # (Auto) Seg Neutrophils % Seg Neuts % (Manual) Lymphocytes % (Manual) Nucleated RBC % Seg Neutrophils # Man Lymphocytes # (Manual) PT INR APTT Fibrinogen D-Dimer Heparin Anti-Xa Level ABG pH POC ABG pCO2 POC ABG pO2 79.5 L ABG O2 Saturation ABG Hemoglobin 8.8 L ABG Oxyhemoglobin 93.5 L ABG Sodium ABG Potassium ABG Chloride 114.0 H ABG Glucose 257 H Oxyhemoglobin Carboxyhemoglobin Sodium Potassium Chloride Carbon Dioxide BUN Creatinine Glucose POC Glucose 232 H Hemoglobin A1c Lactic Acid Calcium Phosphorus Magnesium Ferritin AST Alkaline Phosphatase Lactate Dehydrogenase Total Creatine Kinase CK-MB (CK-2) CK-MB (CK-2) Rel Index Troponin T C-Reactive Protein NT-Pro-B Natriuret Pep Total Protein Albumin Triglycerides LDL Cholesterol Direct HDL Cholesterol Arterial Blood Glucose 257 H Arterial Blood Ionized Calcium Coronavirus (PCR) Crossmatch 12/12/20 12/12/20 12/12/20 06:04 06:04 08:10 WBC RBC Hgb Hct MCV MCH RDW Plt Count Lymph % (Auto) Lymph # (Auto) Seg Neutrophils % Seg Neuts % (Manual) Lymphocytes % (Manual) Nucleated RBC % Seg Neutrophils # Man Lymphocytes # (Manual) PT INR APTT Fibrinogen 100 L* D-Dimer > 10122 H Heparin Anti-Xa Level ABG pH POC ABG pCO2 POC ABG pO2 ABG O2 Saturation ABG Hemoglobin ABG Oxyhemoglobin ABG Sodium ABG Potassium ABG Chloride ABG Glucose Oxyhemoglobin Carboxyhemoglobin Sodium 146 H D Potassium Chloride 116.0 H Carbon Dioxide 20 L BUN 40 H Creatinine Glucose 234 H POC Glucose Hemoglobin A1c Lactic Acid Calcium 7.5 L Phosphorus Magnesium 3.10 H Ferritin 240.7 H AST Alkaline Phosphatase Lactate Dehydrogenase 1274 H Total Creatine Kinase CK-MB (CK-2) CK-MB (CK-2) Rel Index Troponin T C-Reactive Protein 2.80 H NT-Pro-B Natriuret Pep Total Protein Albumin Triglycerides LDL Cholesterol Direct HDL Cholesterol Arterial Blood Glucose Arterial Blood Ionized Calcium Coronavirus (PCR) Crossmatch 12/12/20 12/12/20 12/12/20 08:10 11:49 17:41 WBC RBC Hgb 8.2 L Hct 25.9 L MCV MCH RDW Plt Count Lymph % (Auto) Lymph # (Auto) Seg Neutrophils % Seg Neuts % (Manual) Lymphocytes % (Manual) Nucleated RBC % Seg Neutrophils # Man Lymphocytes # (Manual) PT INR APTT Fibrinogen D-Dimer Heparin Anti-Xa Level ABG pH POC ABG pCO2 POC ABG pO2 ABG O2 Saturation ABG Hemoglobin ABG Oxyhemoglobin ABG Sodium ABG Potassium ABG Chloride ABG Glucose Oxyhemoglobin Carboxyhemoglobin Sodium Potassium Chloride Carbon Dioxide BUN Creatinine Glucose POC Glucose 215 H 143 H Hemoglobin A1c Lactic Acid Calcium Phosphorus Magnesium Ferritin AST Alkaline Phosphatase Lactate Dehydrogenase Total Creatine Kinase CK-MB (CK-2) CK-MB (CK-2) Rel Index Troponin T C-Reactive Protein NT-Pro-B Natriuret Pep Total Protein Albumin Triglycerides LDL Cholesterol Direct HDL Cholesterol Arterial Blood Glucose Arterial Blood Ionized Calcium Coronavirus (PCR) Crossmatch 12/12/20 12/13/20 12/13/20 23:38 04:00 05:20 WBC RBC Hgb Hct MCV MCH RDW Plt Count Lymph % (Auto) Lymph # (Auto) Seg Neutrophils % Seg Neuts % (Manual) Lymphocytes % (Manual) Nucleated RBC % Seg Neutrophils # Man Lymphocytes # (Manual) PT INR APTT Fibrinogen D-Dimer Heparin Anti-Xa Level ABG pH POC ABG pCO2 POC ABG pO2 56.6 L ABG O2 Saturation ABG Hemoglobin 7.0 L ABG Oxyhemoglobin 85.1 L ABG Sodium ABG Potassium ABG Chloride 118.0 H ABG Glucose 231 H Oxyhemoglobin Carboxyhemoglobin 2.0 H Sodium Potassium Chloride Carbon Dioxide BUN Creatinine Glucose POC Glucose 220 H 215 H Hemoglobin A1c Lactic Acid Calcium Phosphorus Magnesium Ferritin AST Alkaline Phosphatase Lactate Dehydrogenase Total Creatine Kinase CK-MB (CK-2) CK-MB (CK-2) Rel Index Troponin T C-Reactive Protein NT-Pro-B Natriuret Pep Total Protein Albumin Triglycerides LDL Cholesterol Direct HDL Cholesterol Arterial Blood Glucose 231 H Arterial Blood Ionized Calcium Coronavirus (PCR) Crossmatch 12/13/20 12/13/20 12/13/20 06:55 06:55 12:19 WBC 23.0 H RBC 2.74 L Hgb 7.1 L Hct 22.6 L MCV MCH 26 L RDW 20.3 H Plt Count 80 L Lymph % (Auto) Lymph # (Auto) Seg Neutrophils % Seg Neuts % (Manual) Lymphocytes % (Manual) Nucleated RBC % Seg Neutrophils # Man Lymphocytes # (Manual) PT INR APTT Fibrinogen D-Dimer Heparin Anti-Xa Level ABG pH POC ABG pCO2 POC ABG pO2 ABG O2 Saturation ABG Hemoglobin ABG Oxyhemoglobin ABG Sodium ABG Potassium ABG Chloride ABG Glucose Oxyhemoglobin Carboxyhemoglobin Sodium 149 H Potassium Chloride 115.8 H Carbon Dioxide BUN 45 H Creatinine Glucose 237 H POC Glucose 250 H Hemoglobin A1c Lactic Acid Calcium Phosphorus Magnesium 3.10 H Ferritin AST 88 H Alkaline Phosphatase 241 H Lactate Dehydrogenase Total Creatine Kinase CK-MB (CK-2) CK-MB (CK-2) Rel Index Troponin T C-Reactive Protein NT-Pro-B Natriuret Pep Total Protein 5.1 L Albumin 2.8 L Triglycerides LDL Cholesterol Direct HDL Cholesterol Arterial Blood Glucose Arterial Blood Ionized Calcium Coronavirus (PCR) Crossmatch 12/13/20 12/13/20 12/14/20 17:39 23:50 04:59 WBC RBC Hgb Hct MCV MCH RDW Plt Count Lymph % (Auto) Lymph # (Auto) Seg Neutrophils % Seg Neuts % (Manual) Lymphocytes % (Manual) Nucleated RBC % Seg Neutrophils # Man Lymphocytes # (Manual) PT INR APTT Fibrinogen D-Dimer Heparin Anti-Xa Level ABG pH POC ABG pCO2 POC ABG pO2 ABG O2 Saturation ABG Hemoglobin ABG Oxyhemoglobin ABG Sodium ABG Potassium ABG Chloride ABG Glucose Oxyhemoglobin Carboxyhemoglobin Sodium Potassium Chloride Carbon Dioxide BUN Creatinine Glucose POC Glucose 257 H 288 H 362 H Hemoglobin A1c Lactic Acid Calcium Phosphorus Magnesium Ferritin AST Alkaline Phosphatase Lactate Dehydrogenase Total Creatine Kinase CK-MB (CK-2) CK-MB (CK-2) Rel Index Troponin T C-Reactive Protein NT-Pro-B Natriuret Pep Total Protein Albumin Triglycerides LDL Cholesterol Direct HDL Cholesterol Arterial Blood Glucose Arterial Blood Ionized Calcium Coronavirus (PCR) Crossmatch 12/14/20 12/14/20 12/14/20 06:25 06:55 06:55 WBC 18.7 H RBC 2.27 L Hgb 5.9 L* Hct 19.6 L* MCV MCH 26 L RDW 20.7 H Plt Count 58 L Lymph % (Auto) Lymph # (Auto) Seg Neutrophils % Seg Neuts % (Manual) Lymphocytes % (Manual) Nucleated RBC % Seg Neutrophils # Man Lymphocytes # (Manual) PT 17.5 H INR 1.37 H APTT Fibrinogen 120 L* D-Dimer > 59747 H Heparin Anti-Xa Level ABG pH POC ABG pCO2 POC ABG pO2 ABG O2 Saturation 75.8 L ABG Hemoglobin 5.8 L ABG Oxyhemoglobin ABG Sodium ABG Potassium ABG Chloride ABG Glucose Oxyhemoglobin 73.5 L Carboxyhemoglobin Sodium Potassium Chloride Carbon Dioxide BUN Creatinine Glucose POC Glucose Hemoglobin A1c Lactic Acid Calcium Phosphorus Magnesium Ferritin AST Alkaline Phosphatase Lactate Dehydrogenase Total Creatine Kinase CK-MB (CK-2) CK-MB (CK-2) Rel Index Troponin T C-Reactive Protein NT-Pro-B Natriuret Pep Total Protein Albumin Triglycerides LDL Cholesterol Direct HDL Cholesterol Arterial Blood Glucose Arterial Blood Ionized Calcium Coronavirus (PCR) Crossmatch 12/14/20 12/14/20 12/14/20 06:55 06:55 08:38 WBC RBC Hgb Hct MCV MCH RDW Plt Count Lymph % (Auto) Lymph # (Auto) Seg Neutrophils % Seg Neuts % (Manual) Lymphocytes % (Manual) Nucleated RBC % Seg Neutrophils # Man Lymphocytes # (Manual) PT INR APTT Fibrinogen D-Dimer Heparin Anti-Xa Level ABG pH POC ABG pCO2 POC ABG pO2 ABG O2 Saturation ABG Hemoglobin ABG Oxyhemoglobin ABG Sodium ABG Potassium ABG Chloride ABG Glucose Oxyhemoglobin Carboxyhemoglobin Sodium 147 H Potassium 5.3 H Chloride 116.7 H Carbon Dioxide BUN 55 H Creatinine Glucose 368 H POC Glucose Hemoglobin A1c Lactic Acid Calcium Phosphorus Magnesium Ferritin 398.2 H AST 86 H Alkaline Phosphatase 270 H Lactate Dehydrogenase 2448 H Total Creatine Kinase CK-MB (CK-2) CK-MB (CK-2) Rel Index Troponin T C-Reactive Protein 9.10 H NT-Pro-B Natriuret Pep Total Protein 5.2 L Albumin 2.7 L Triglycerides 327 H LDL Cholesterol Direct HDL Cholesterol Arterial Blood Glucose Arterial Blood Ionized Calcium Coronavirus (PCR) Crossmatch 12/14/20 11:42 WBC RBC Hgb Hct MCV MCH RDW Plt Count Lymph % (Auto) Lymph # (Auto) Seg Neutrophils % Seg Neuts % (Manual) Lymphocytes % (Manual) Nucleated RBC % Seg Neutrophils # Man Lymphocytes # (Manual) PT INR APTT Fibrinogen D-Dimer Heparin Anti-Xa Level ABG pH POC ABG pCO2 POC ABG pO2 ABG O2 Saturation ABG Hemoglobin ABG Oxyhemoglobin ABG Sodium ABG Potassium ABG Chloride ABG Glucose Oxyhemoglobin Carboxyhemoglobin Sodium Potassium Chloride Carbon Dioxide BUN Creatinine Glucose POC Glucose 454 H Hemoglobin A1c Lactic Acid Calcium Phosphorus Magnesium Ferritin AST Alkaline Phosphatase Lactate Dehydrogenase Total Creatine Kinase CK-MB (CK-2) CK-MB (CK-2) Rel Index Troponin T C-Reactive Protein NT-Pro-B Natriuret Pep Total Protein Albumin Triglycerides LDL Cholesterol Direct HDL Cholesterol Arterial Blood Glucose Arterial Blood Ionized Calcium Coronavirus (PCR) Crossmatch Chest x-ray: image reviewed (lower lung volumes but increasing interstitial infiltrates non the less) Allied health notes reviewed: nursing
--- NOTE | 2020-12-14 15:53 | Progress Note ---
<KASSIGUS LENZ Ruthann - Last Filed: 12/14/20 16:14> Assessment and Plan Assessment and plan: Assessment and Plan Assessment and plan: This is a 65 year old female with HTN, DM, GI bleed in 2016 admitted with COVID 19 pna, sepsis, acute hypoxic respiratory failure and ACS NEURO: metabolic encephalopathy; sedation -Patient opens eyes and moves lower extremities spontaneously -Patient is sedated on propofol, fentanyl -RASS goal 0 to -1 -Avoid delirium -SAT trials when appropriate CV: sp STEMI, h/o HTN; SVT/afib -Cardiology consulted, appreciate recommendations -Per cardiology patient will be medically treated -Echocardiogram shows LVEF 65 to 70%, mild LVH-> see report for details -Aspirin, Lipitor, Plavix -Blood pressure monitor per protocol -adenosine this AM per cards -on cardizem now -german for MAP; may try vaso to see if less tachycardia) remains in afib rate 100-120 in the context of bleeding/anemia RESP: Acute hypoxic respiratory failure due to [id number] -Patient was intubated 12/08 -Wean mechanical ventilation as tolerated see RT notes for titration to 85% FiO2 today sat goall .88 -VAP bundle -trend ABG and chest xray GI: GIB; protein charo malnutrition -nutrition consult -TF -GI consulted, patient recommendations (signed off 12/12) -IV PPI -Bowel regimen: [place]enn[place] : Urinary retention -Carpenter placed urinary retention -Strict intake and output -Avoid nephrotoxic medication -Trend creatinine Heme: Anemia, brachial vein DVT, GIB, thrombocytopenia; covid coagulopathy -Guaiac positive stool, remote history of GI bleed (2015) -GI/vascular/hem/onc consulted, appreciate recommendations -Trend H&H -Hemoglobin on admission 8.9 -Transfuse as needed for hgb<7 -Patient was on heparin drip was discontinued due to GI bleed -SCDs to bilateral lower extremities while in bed -Per vascular surgery- When the patient is able to tolerate anticoagulation would recommend restarting a low-dose heparin drip to prevent propagation of the DVT. -PE: Left and right radial pulse palpated; Bilateral DP and PT palpable, B hands cold with discolored thumb/index and middle fingers, B feet cold wioth discolored toes -transfusing per heme -follow CBC and coags -HIT pending ID: COVID-19 pneumonia, leukocytosis -Admits to known exposure -Presented at outside facility ([facility]) with Covid symptom complaints, CT angio chest bilateral ground glass opacities but no PE, consistent with Covid -COVID-19 PCR positive -Zinc/vitamin D/vitamin C -ID following -steroids per ID -S/p remdesivir x5 days, s/p Actemra -Per ID: Continue cefepime and vancomycin for 5 days (12/08 through 12/13) -Contact/droplet precautions -trend temp and WBC curve -follow culture data ENDO: DM2; hyperglycemia -SSI PRN -Scheduled Lantus (titrate as needed) -HgbA1C 9.5 -Avoid hypoglycemia The high probability of a clinically significant, sudden or life threatening det erioration of the [pulmonary] system(s) required my full and direct attention, intervention and personal management. The aggregate critical care time was [60] minutes. This time is in addition to time spent performing reported procedures but includes the following: [x] Data Review and interpretation [x] Patient assessment and monitoring of vital signs [x] Documentation [x] Medication orders and management Disposition Plan: icu Total Time Spent with Patient (Minutes): 60 History Interval history: 65-year-old -[place]cu[place] female with history of hypertension, diabetes, and GI bleed who presents [facility] ED with complaints of shortness of breath, loss of taste and smell, malaise, fatigue and weakness. Of note this is a [facility] patient and [facility] has agreed to the admission. Patient presented to her local [facility] clinic yesterday evening with complaints of Covid symptoms x6 days. CT angio chest done at [facility] revealed extensive irregular bilateral groundglass opacities, and patient was referred to ED for further evaluation and treatment. Admits to known exposure, states that her friend whom she was in close contact with for several days recently tested positive for Covid. Endorses mild generalized headache, chest tightening, diarrhea, body aches, loss of smell and taste, and shortness of breath. 12/03: COVID-19 test is positive patient is high flow in progress 40liters/100%, will obtain pulmonary consultation. Will adjust glargine for better insulin cov erage. Continue remdesivir and Solu-Medrol. Will monitor progression. Encourage prone positioning. We will give a dose of Lasix today. Would like to go to full dose anticoagulation but patient's anemia is precluding And also patient with noted positive stool and remote history of GI bleed in 2016 if no worsening renal function with the Lasix given today will consider CTA in the morning if patient is not improving 12/04: Patient seen and examined, considering worsening hypoxia and stable renal function will order CTA to rule out pulmonary embolism. Will give one-time full dose anticoagulation and continue the prophylactic dose as being careful due to history of GI bleed. And noted anemia. I discussed with the tobacco primer machine operator patient will transfer to [facility]. For now continue steroid therapy will give additional dose of Lasix today. Blood sugar is better controlled. Continue steroids and remdesivir. Patient also Getting Actmera also. Patient was able to prone today. 12/05: Patient s/p Actemra. Continue supportive care she is prone. She continues on steroids and remdesivir. We will give additional Lasix today and monitor renal function in a.m. She remains on high flow and nonrebreather mask/sign of the severity of her hypoxia 12/07: Patient remains on High flow, desaturating despite being on 100% highflow and NRBM, encourage to go back on BiPAP, she protested but now willing with improvement back to 89%. Patient is now on heparin drip, will obtain Chest xray. prongnosis -guarded 12/08: Patient still with hypoxic respiratory failure, worsening symptoms, EKG done concerning for inferior wall MA, STAT Troponin still pending. Discussed with the pulmonary doctor and also with the christian counselor. Patient due to worsening symptoms is unable to go to the cathlab as she is not stable due to significant hypoxic. The patient again denies any chest pain, BUT WONDER IF this is secondary to the ongoing Heparin drip. Will start on full dose Plavix, Low dose ASA, BB if tolerating. Transfer to the ICU. Patient is s.p Remdesivir and Actmera continue Steroids and Heparin drip. Plan discussed with the patient in detail Noted with Hypoglycemia, will adjust insulin Need to monitor Nutritional status Very guarded prognosis 12/09 no acute events overnight 12/10: LARISA, heparin gtt turned off d/t bleeding 12/11: Patient is anemic today and required transfusion of PRBC x1 which was ordered. Vascular surgery was consulted for evaluation of right radial artery. Patient's heparin drip was discontinued due to mouth/nose. venous US ordered and PT/INR/CBC and fibrinogen were ordered 12/12: brachial vein DVT shown on US. Pt now has no dopplarable or papable pulse on right wrist (brachial heard on Doppler). Vascular surgery is aware. 12/13: PPP papable now, hand remain cold and feet are warmer. Started n argatroban and received cryo 8-30 heme following- transfused per recs Disposition Plan: icu Total Time Spent with Patient (Minutes): 60 History Interval history: no acute events Hospitalist Physical - Constitutional Vitals: Temp Pulse Resp BP Pulse Ox 99.5 F 128 H 14 105/63 100 12/14/20 12:00 12/14/20 14:15 12/14/20 14:15 12/14/20 14:15 12/14/20 14:15 General appearance: Present: other (Intubated) HEART Score - HEART Score Troponin: Troponin T 0.487 ng/mL (0.00-0.029) H* D 12/09/20 13:08 Results - Labs CBC & Chem 7: 12/14/20 06:55 12/14/20 06:55 Labs: Laboratory Last Values WBC 18.7 K/mm3 (4.5-11.0) H 12/14/20 06:55 RBC 2.27 M/mm3 (3.65-5.03) L 12/14/20 06:55 Hgb 5.9 gm/dl (10.1-14.3) L* 12/14/20 06:55 Hct 19.6 % (30.3-42.9) L* 12/14/20 06:55 MCV 86 fl (79-97) 12/14/20 06:55 MCH 26 pg (28-32) L 12/14/20 06:55 MCHC 30 % (30-34) 12/14/20 06:55 RDW 20.7 % (13.2-15.2) H 12/14/20 06:55 Plt Count 58 K/mm3 (140-440) L 12/14/20 06:55 Lymph % (Auto) 6.7 % (13.4-35.0) L 12/02/20 03:58 [place] % (Auto) 5.4 % (0.0-7.3) 12/02/20 03:58 Eos % (Auto) 0.0 % (0.0-4.3) 12/02/20 03:58 Baso % (Auto) 0.2 % (0.0-1.8) 12/02/20 03:58 Lymph # (Auto) 0.3 K/mm3 (1.2-5.4) L 12/02/20 03:58 [place] # (Auto) 0.3 K/mm3 (0.0-0.8) 12/02/20 03:58 Eos # (Auto) 0.0 K/mm3 (0.0-0.4) 12/02/20 03:58 Baso # (Auto) 0.0 K/mm3 (0.0-0.1) 12/02/20 03:58 Add Manual Diff Complete 12/10/20 02:39 Total Counted 100 12/10/20 02:39 Seg Neutrophils % General Cleaner 12/10/20 02:39 Seg Neuts % (Manual) 95.0 % (40.0-70.0) H 12/10/20 02:39 Band Neutrophils % 2.0 % 12/10/20 02:39 Lymphocytes % (Manual) 1.0 % (13.4-35.0) L 12/10/20 02:39 Monocytes % (Manual) 2.0 % (0.0-7.3) 12/10/20 02:39 Eosinophils % (Manual) 1.0 % (0.0-4.3) 12/08/20 20:15 Nucleated RBC % 3.0 % (0.0-0.9) H 12/10/20 02:39 Seg Neutrophils # 4.4 K/mm3 (1.8-7.7) 12/02/20 03:58 Seg Neutrophils # Man 18.2 K/mm3 (1.8-7.7) H 12/10/20 02:39 Band Neutrophils # 0.4 K/mm3 12/10/20 02:39 Lymphocytes # (Manual) 0.2 K/mm3 (1.2-5.4) L 12/10/20 02:39 Abs React Lymphs (Man) 0.0 K/mm3 12/10/20 02:39 Monocytes # (Manual) 0.4 K/mm3 (0.0-0.8) 12/10/20 02:39 Eosinophils # (Manual) 0.0 K/mm3 (0.0-0.4) 12/10/20 02:39 Basophils # (Manual) 0.0 K/mm3 (0.0-0.1) 12/10/20 02:39 Metamyelocytes # 0.0 K/mm3 12/10/20 02:39 Myelocytes # 0.0 K/mm3 12/10/20 02:39 Promyelocytes # 0.0 K/mm3 12/10/20 02:39 Blast Cells # 0.0 K/mm3 12/10/20 02:39 WBC Morphology Not Reportable 12/10/20 02:39 Hypersegmented Neuts Not Reportable 12/10/20 02:39 Hyposegmented Neuts Not Reportable 12/10/20 02:39 Hypogranular Neuts Not Reportable 12/10/20 02:39 Smudge Cells Not Reportable 12/10/20 02:39 Toxic Granulation Not Reportable 12/10/20 02:39 Toxic Vacuolation Not Reportable 12/10/20 02:39 Dohle Bodies Not Reportable 12/10/20 02:39 Pelger-Huet Anomaly Not Reportable 12/10/20 02:39 Minna Rods Not Reportable 12/10/20 02:39 Platelet Estimate Consistent w auto 12/10/20 02:39 Clumped Platelets Not Reportable 12/10/20 02:39 Plt Clumps, EDTA Not Reportable 12/10/20 02:39 Large Platelets Few 12/10/20 02:39 Giant Platelets Not Reportable 12/10/20 02:39 Platelet Satelliting Not Reportable 12/10/20 02:39 Plt Morphology Comment Not Reportable 12/10/20 02:39 RBC Morphology Not Reportable 12/10/20 02:39 Dimorphic RBCs Not Reportable 12/10/20 02:39 Polychromasia Few 12/10/20 02:39 Hypochromasia 1+ 12/10/20 02:39 Poikilocytosis Not Reportable 12/10/20 02:39 Anisocytosis 1+ 12/10/20 02:39 Microcytosis Few 12/10/20 02:39 Macrocytosis Not Reportable 12/10/20 02:39 Spherocytes Not Reportable 12/10/20 02:39 Pappenheimer Bodies Not Reportable 12/10/20 02:39 Sickle Cells Not Reportable 12/10/20 02:39 Target Cells Not Reportable 12/10/20 02:39 Tear Drop Cells Few 12/10/20 02:39 Ovalocytes Not Reportable 12/10/20 02:39 Helmet Cells Not Reportable 12/10/20 02:39 [place] Bodies Not Reportable 12/10/20 02:39 [place] Rings Not Reportable 12/10/20 02:39 [place] Cells Not Reportable 12/10/20 02:39 Bite Cells Not Reportable 12/10/20 02:39 Crenated Cell Not Reportable 12/10/20 02:39 Elliptocytes Not Reportable 12/10/20 02:39 Acanthocytes (Spur) Not Reportable 12/10/20 02:39 Rouleaux Not Reportable 12/10/20 02:39 Hemoglobin C Crystals Not Reportable 12/10/20 02:39 Schistocytes Not Reportable 12/10/20 02:39 Malaria parasites Not Reportable 12/10/20 02:39 Po Bodies Not Reportable 12/10/20 02:39 Hem Pathologist Commnt No 12/10/20 02:39 PT 17.5 Sec. (12.2-14.9) H 12/14/20 06:55 INR 1.37 (0.87-1.13) H 12/14/20 06:55 APTT 29.2 Sec. (24.2-36.6) 12/11/20 15:45 Fibrinogen 120 mg/dl (211-480) L* 12/14/20 06:55 D-Dimer > 64425 ng/mlDDU (0-234) H 12/14/20 06:55 Heparin Anti-Xa Level < 0.10 U.I./ml (0.3-0.7) L 12/11/20 15:45 ABG pH Not Reportable 12/14/20 06:25 POC ABG pCO2 45.9 mmHg (32.0-48.0) 12/13/20 04:00 ABG pCO2 Not Reportable 12/14/20 06:25 POC ABG pO2 56.6 mmHg (83-108) L 12/13/20 04:00 ABG pO2 Not Reportable 12/14/20 06:25 POC ABG HCO3 25.4 12/13/20 04:00 ABG HCO3 Not Reportable 12/14/20 06:25 ABG O2 Saturation 75.8 % (95.0-99.0) L 12/14/20 06:25 ABG O2 Content 6.2 (0.0-44) 12/14/20 06:25 POC ABG Base Excess -0.1 12/13/20 04:00 ABG Base Excess Not Reportable 12/14/20 06:25 ABG Hemoglobin 5.8 gm/dl (12.0-16.0) L 12/14/20 06:25 ABG Oxyhemoglobin 85.1 (94-98) L 12/13/20 04:00 ABG Carboxyhemoglobin 2.3 % (0.0-5.0) 12/14/20 06:25 ABG Methemoglobin 0.6 % (0.0-1.5) 12/14/20 06:25 ABG Sodium 142.9 mmol/L (136.0-145.0) 12/13/20 04:00 ABG Potassium 4.5 mmol/L (3.40-4.50) 12/13/20 04:00 ABG Chloride 118.0 mmol/L (98-107) H 12/13/20 04:00 ABG Glucose 231 mg/dL (65-95) H 12/13/20 04:00 Oxyhemoglobin 73.5 % (95.0-99.0) L 12/14/20 06:25 Carboxyhemoglobin 2.0 (0.5-1.5) H 12/13/20 04:00 FiO2 10 % 12/14/20 06:25 FiO2 % 90.0 12/13/20 04:00 Sodium 147 mmol/L (137-145) H 12/14/20 06:55 Potassium 5.3 mmol/L (3.6-5.0) H 12/14/20 06:55 Chloride 116.7 mmol/L (98-107) H 12/14/20 06:55 Carbon Dioxide 22 mmol/L (22-30) 12/14/20 06:55 Anion Gap 14 mmol/L 12/14/20 06:55 BUN 55 mg/dL (7-17) H 12/14/20 06:55 Creatinine 1.0 mg/dL (0.6-1.2) 12/14/20 06:55 Estimated GFR > 60 ml/min 12/14/20 06:55 BUN/Creatinine Ratio 55 % 12/14/20 06:55 Glucose 368 mg/dL (65-100) H 12/14/20 06:55 POC Glucose 454 mg/dL (70-105) H 12/14/20 11:42 Hemoglobin A1c 9.5 % (4-6) H 12/02/20 06:15 Lactic Acid 2.50 mmol/L (0.7-2.0) H* 12/09/20 13:08 Calcium 8.5 mg/dL (8.4-10.2) 12/14/20 06:55 Phosphorus 3.00 mg/dL (2.5-4.5) 12/13/20 06:55 Magnesium 3.10 mg/dL (1.7-2.3) H 12/13/20 06:55 Ferritin 398.2 ng/mL (10.0-200.0) H 12/14/20 06:55 Total Bilirubin 0.50 mg/dL (0.1-1.2) 12/14/20 06:55 AST 86 units/L (5-40) H 12/14/20 06:55 ALT 16 units/L (7-56) 12/14/20 06:55 Alkaline Phosphatase 270 units/L (35-129) H 12/14/20 06:55 Lactate Dehydrogenase 2448 units/L (91-180) H 12/14/20 06:55 Total Creatine Kinase 521 units/L (30-135) H 12/08/20 20:15 CK-MB (CK-2) 31.5 ng/mL (0.0-4.0) H 12/08/20 20:15 CK-MB (CK-2) Rel Index 6.0 (0-4) H 12/08/20 20:15 Troponin T 0.487 ng/mL (0.00-0.029) H* D 12/09/20 13:08 C-Reactive Protein 9.10 mg/dL (0.00-1.30) H 12/14/20 06:55 NT-Pro-B Natriuret Pep 2396 pg/mL (0-900) H 12/09/20 13:08 Total Protein 5.2 g/dL (6.3-8.2) L 12/14/20 06:55 Albumin 2.7 g/dL (3.9-5) L 12/14/20 06:55 Albumin/Globulin Ratio 1.1 % 12/14/20 06:55 Triglycerides 327 mg/dL (2-149) H 12/14/20 08:38 Cholesterol 88 mg/dL (50-199) 12/08/20 13:25 LDL Cholesterol Direct 30 mg/dL (50-130) L 12/08/20 13:25 HDL Cholesterol 35 mg/dL (40-59) L 12/08/20 13:25 Cholesterol/HDL Ratio 2.51 % 12/08/20 13:25 Procalcitonin 1.18 ng/mL (<0.15) 12/02/20 03:58 Arterial Blood Glucose 231 mg/dL (65-95) H 12/13/20 04:00 Arterial Blood Ionized Calcium 4.8 mg/dL (4.6-5.3) 12/13/20 04:00 Coronavirus (PCR) Positive (Negative) A 12/02/20 08:15 Blood Type O POSITIVE 12/14/20 14:20 Antibody Screen Negative 12/10/20 04:10 Crossmatch See Detail 12/14/20 14:20 Carpenter/IV: Voiding Method Indwelling Catheter Active Medications - Current Medications Current Medications: Generic Name Dose Route Start Last Admin Trade Name Freq PRN Reason Stop Dose Admin Acetaminophen 650 mg 12/02/20 05:09 12/12/20 18:19 Acetaminophen 325 Mg Tab PO 650 mg Q4H PRN Administration Pain MILD(1-3)/Fever >100.5/LARA Albuterol 2.5 mg 12/02/20 05:09 Albuterol 2.5 Mg/3 Ml Nebu IH Q3HRT PRN Shortness Of Breath Lipase/Protease/Amylase 1 each 12/09/20 10:32 Lipase 10,500/Protease 25,000/Amylase 43,750 (Units) Dr Fong FEEDTUBE PRN PRN For Clogged Feeding Tube Ascorbic Acid 500 mg 12/03/20 22:00 12/14/20 10:37 Ascorbic Acid 500 Mg Tab PO 500 mg BID AZAEL Administration Aspirin 81 mg 12/08/20 13:00 12/14/20 10:36 Aspirin 81 Mg Tab Chew PO Not Given QDAY AZAEL Atorvastatin Calcium 40 mg 12/08/20 22:00 12/13/20 21:54 Atorvastatin 40 Mg Tab PO 40 mg QHS AZAEL Administration Cholecalciferol 5,000 unit 12/02/20 10:00 12/14/20 10:37 Cholecalciferol (Vit D3) 5,000 Unit Tab PO 5,000 unit DAILY AZAEL Administration Clopidogrel Bisulfate 75 mg 12/09/20 10:00 12/14/20 10:36 Clopidogrel 75 Mg Tab PO Not Given QDAY AZAEL Dextrose 50 ml 12/02/20 05:09 12/05/20 08:09 Dextrose 50% In Water (25gm) 50 Ml Syringe IV 50 ml Q30MIN PRN Administration Hypoglycemia Protocol Docusate Sodium 100 mg 12/14/20 10:00 12/14/20 10:36 Docusate Sodium 100 Mg/10 Ml Oral Liqd FEEDTUBE 100 mg BID AZAEL Administration Fentanyl 50 mcg 12/08/20 15:13 Fentanyl 100 Mcg/2 Ml Inj IV Q10MIN PRN ANALGESIA Hydrophilic Ointment 1 applic 12/08/20 15:56 Lip Therapy Vaseline TP Q2HR PRN Dry Lips Fentanyl Citrate 2,000 mcg in 100 mls @ 3.243 mls/hr 12/08/20 16:00 12/14/20 14:03 Fentanyl Drip Premix IV 4 mcg/kg/hr TITR AZAEL 12.973 mls/hr Administration Protocol 1 MCG/KG/HR NORepinephrine/NS 8 MG-250 ML 8 mg in 250 mls @ 3.75 mls/hr 12/08/20 16:00 12/14/20 11:10 Norepinephrine/Ns 8 Mg-250 Ml (Double Conc) IV 6 mcg/min TITRATE AZAEL 11.25 mls/hr Titration Protocol 2 MCG/MIN Propofol 1,000 mg in 100 mls @ 1.946 mls/hr 12/08/20 17:00 12/14/20 14:04 Diprivan 10 Mg/Ml IV 35 mcg/kg/min TITR AZAEL 13.621 mls/hr Titration Protocol 5 MCG/KG/MIN Sodium Chloride 500 mls @ 1 mls/hr 12/08/20 17:19 12/13/20 14:10 Nacl 0.9% 500 Ml IV 250 mls/hr DIRECT PRN Administration ARTERIAL LINE FLUSH Vasopressin 20 unit/ Sodium 101 mls @ 9.09 mls/hr 12/10/20 04:00 12/12/20 12:00 Chloride IV Infused TITR [facility] Titration Protocol 0.03 UNITS/MIN Sodium Chloride 500 mls @ 0 mls/hr 12/14/20 09:53 Nacl 0.9% 500 Ml IV 12/14/20 23:59 ONCE NR As Directed Diltiazem HCl 100 mg in 100 mls @ 5 mls/hr 12/14/20 11:00 12/14/20 14:03 Cardizem/D5w 100mg/100ml IV 10 mg/hr TITR AZAEL 10 mls/hr Titration Protocol 5 MG/HR Insulin Glargine 25 units 12/14/20 22:00 Insulin Glargine 100 Units/Ml SUB-Q QHS [facility] Insulin Human Lispro 0 unit 12/09/20 12:00 12/14/20 13:30 Insulin Lispro 100 Unit/Ml SUB-Q 10 unit Q6HR [facility] Administration Protocol Methylprednisolone Sodium Succinate 60 mg 12/13/20 11:00 12/14/20 10:37 Methylprednisolone Sod Succinate 125 Mg/2 Ml Inj IV 12/16/20 10:59 60 mg Q12H [facility] Administration Metoclopramide HCl 5 mg 12/11/20 12:00 12/14/20 10:34 Metoclopramide 10 Mg/2 Ml Inj IV Not Given Q6H [facility] Multi-Ingred Cream/Lotion/Oil/Oint 1 applic 12/08/20 15:56 Mineral Oil/Petrolatum, White Ophth Oint 3.5 Gm OU Q4HR PRN Dry Eye(s) Nitroglycerin 1 inch 12/08/20 14:00 12/14/20 14:54 Nitroglycerin 2% Oint 1 Gm TP Not Given QIDNTG [facility] Protocol Ondansetron HCl 4 mg 12/02/20 05:09 Ondansetron 4 Mg/2 Ml Inj IV Q6H PRN Nausea And Vomiting Pantoprazole Sodium 40 mg 12/13/20 10:00 12/14/20 10:36 Pantoprazole 40 Mg Inj IV 40 mg BID [facility] Administration Senna/Docusate Sodium 1 tab 12/08/20 22:00 12/14/20 10:36 Sennosides/Docusate Sodium 8.6/50 Mg Tab FEEDTUBE 1 tab BID AZAEL Administration Simple Syrup 30 ml 12/09/20 10:32 Simple Syrup 15 Ml FEEDTUBE PRN PRN Hypoglycemia Sodium Bicarbonate 325 mg 12/09/20 10:32 Sodium Bicarbonate 325 Mg Tab FEEDTUBE PRN PRN For Clogged Feeding Tube Sodium Chloride 10 ml 12/02/20 10:00 12/14/20 10:36 Sodium Chloride 0.9% 10 Ml Flush Syringe IV 10 ml BID AZAEL Administration Sodium Chloride 10 ml 12/02/20 05:09 Sodium Chloride 0.9% 10 Ml Flush Syringe IV PRN PRN LINE FLUSH Zinc Sulfate 220 mg 12/02/20 10:00 12/14/20 10:37 Zinc Sulfate 220 Mg Cap PO 220 mg QDAY AZAEL Administration Nutrition/Malnutrition Assess - Dietary Evaluation Nutrition/Malnutrition Findings: Nutrition Notes Start: 12/03/20 10:33 Freq: Status: Active Protocol: Document 12/14/20 10:32 (Rec: 12/14/20 10:42 [id number]) Nutrition Notes Initial or Follow up Reassessment Current Diagnosis Respiratory Failure Other Pertinent Diagnosis Covid +, Hyperglycemia Current Diet Vital AF at 45 ml/hr Labs/Tests Na 147 K 5.3 BUN 55 BG 368 Pertinent Medications Propofol at 11.676 ml/hr Height 4 ft 11.84 in Weight 64.86 kg [place] Body Weight (kg) 45.09 BMI 28.0 Weight Status Overweight Subjective/Other Information TF running at 45ml/hr (goal rate) and pt tolerating. Percent of energy/protein needs met: 98%/100% Burn Absent Trauma Absent Current % PO Negligible Minimum of two criteria No #1 Nutrition Diagnosis Inadequate oral intake Diagnosis Progress(for reassessment Continues documentation) Is patient on ventilator? Yes Is Patient Ambulatory and/or Out of Bed No REE-([facility]-confined to bed) 1328.772 Calculation Used for Recommendations [facility] Additional Notes Pro needs 1.2-2g/k-130g/ day Fluid needs 1ml/kcal Nutrition Intervention Change Diet Order: continue Nutrition Support: Vital AF 1.2 at 45 ml/hr. Flush 75 ml q4h or per MD. Kcal 1,296 Protein (gm) 81 Fluid (mL) 876 Goal #1 Meet at least 75% of protein and energy needs via TF Anticipated Discharge Needs: Unable to determine at this time Follow-Up By: 12/16/20 Additional Comments F/u: TF tolerance and renal funciton - Attestation Statement I have reviewed and agreed w/ Malnutrition eval & tx plan: Yes <JEREMY INMAN - Last Filed: 12/14/20 17:31> History Interval history: I saw and evaluated the patient. Discussed with the nurse practitioner and agree with their findings and plan as documented in this note. Hospitalist Physical - Constitutional Vitals: Temp Pulse Resp BP Pulse Ox 99.5 F 81 9 L 98/41 93 12/14/20 12:00 12/14/20 17:00 12/14/20 17:00 12/14/20 17:00 12/14/20 17:00 HEART Score - HEART Score Troponin: Troponin T 0.487 ng/mL (0.00-0.029) H* D 12/09/20 13:08 Results - Labs CBC & Chem 7: 12/14/20 06:55 12/14/20 06:55 Labs: Laboratory Last Values WBC 18.7 K/mm3 (4.5-11.0) H 12/14/20 06:55 RBC 2.27 M/mm3 (3.65-5.03) L 12/14/20 06:55 Hgb 5.9 gm/dl (10.1-14.3) L* 12/14/20 06:55 Hct 19.6 % (30.3-42.9) L* 12/14/20 06:55 MCV 86 fl (79-97) 12/14/20 06:55 MCH 26 pg (28-32) L 12/14/20 06:55 MCHC 30 % (30-34) 12/14/20 06:55 RDW 20.7 % (13.2-15.2) H 12/14/20 06:55 Plt Count 58 K/mm3 (140-440) L 12/14/20 06:55 Lymph % (Auto) 6.7 % (13.4-35.0) L 12/02/20 03:58 [place] % (Auto) 5.4 % (0.0-7.3) 12/02/20 03:58 Eos % (Auto) 0.0 % (0.0-4.3) 12/02/20 03:58 Baso % (Auto) 0.2 % (0.0-1.8) 12/02/20 03:58 Lymph # (Auto) 0.3 K/mm3 (1.2-5.4) L 12/02/20 03:58 [place] # (Auto) 0.3 K/mm3 (0.0-0.8) 12/02/20 03:58 Eos # (Auto) 0.0 K/mm3 (0.0-0.4) 12/02/20 03:58 Baso # (Auto) 0.0 K/mm3 (0.0-0.1) 12/02/20 03:58 Add Manual Diff Complete 12/10/20 02:39 Total Counted 100 12/10/20 02:39 Seg Neutrophils % General Cleaner 12/10/20 02:39 Seg Neuts % (Manual) 95.0 % (40.0-70.0) H 12/10/20 02:39 Band Neutrophils % 2.0 % 12/10/20 02:39 Lymphocytes % (Manual) 1.0 % (13.4-35.0) L 12/10/20 02:39 Monocytes % (Manual) 2.0 % (0.0-7.3) 12/10/20 02:39 Eosinophils % (Manual) 1.0 % (0.0-4.3) 12/08/20 20:15 Nucleated RBC % 3.0 % (0.0-0.9) H 12/10/20 02:39 Seg Neutrophils # 4.4 K/mm3 (1.8-7.7) 12/02/20 03:58 Seg Neutrophils # Man 18.2 K/mm3 (1.8-7.7) H 12/10/20 02:39 Band Neutrophils # 0.4 K/mm3 12/10/20 02:39 Lymphocytes # (Manual) 0.2 K/mm3 (1.2-5.4) L 12/10/20 02:39 Abs React Lymphs (Man) 0.0 K/mm3 12/10/20 02:39 Monocytes # (Manual) 0.4 K/mm3 (0.0-0.8) 12/10/20 02:39 Eosinophils # (Manual) 0.0 K/mm3 (0.0-0.4) 12/10/20 02:39 Basophils # (Manual) 0.0 K/mm3 (0.0-0.1) 12/10/20 02:39 Metamyelocytes # 0.0 K/mm3 12/10/20 02:39 Myelocytes # 0.0 K/mm3 12/10/20 02:39 Promyelocytes # 0.0 K/mm3 12/10/20 02:39 Blast Cells # 0.0 K/mm3 12/10/20 02:39 WBC Morphology Not Reportable 12/10/20 02:39 Hypersegmented Neuts Not Reportable 12/10/20 02:39 Hyposegmented Neuts Not Reportable 12/10/20 02:39 Hypogranular Neuts Not Reportable 12/10/20 02:39 Smudge Cells Not Reportable 12/10/20 02:39 Toxic Granulation Not Reportable 12/10/20 02:39 Toxic Vacuolation Not Reportable 12/10/20 02:39 Dohle Bodies Not Reportable 12/10/20 02:39 Pelger-Huet Anomaly Not Reportable 12/10/20 02:39 Minna Rods Not Reportable 12/10/20 02:39 Platelet Estimate Consistent w auto 12/10/20 02:39 Clumped Platelets Not Reportable 12/10/20 02:39 Plt Clumps, EDTA Not Reportable 12/10/20 02:39 Large Platelets Few 12/10/20 02:39 Giant Platelets Not Reportable 12/10/20 02:39 Platelet Satelliting Not Reportable 12/10/20 02:39 Plt Morphology Comment Not Reportable 12/10/20 02:39 RBC Morphology Not Reportable 12/10/20 02:39 Dimorphic RBCs Not Reportable 12/10/20 02:39 Polychromasia Few 12/10/20 02:39 Hypochromasia 1+ 12/10/20 02:39 Poikilocytosis Not Reportable 12/10/20 02:39 Anisocytosis 1+ 12/10/20 02:39 Microcytosis Few 12/10/20 02:39 Macrocytosis Not Reportable 12/10/20 02:39 Spherocytes Not Reportable 12/10/20 02:39 Pappenheimer Bodies Not Reportable 12/10/20 02:39 Sickle Cells Not Reportable 12/10/20 02:39 Target Cells Not Reportable 12/10/20 02:39 Tear Drop Cells Few 12/10/20 02:39 Ovalocytes Not Reportable 12/10/20 02:39 Helmet Cells Not Reportable 12/10/20 02:39 [place] Bodies Not Reportable 12/10/20 02:39 [place] Rings Not Reportable 12/10/20 02:39 G[place] Cells Not Reportable 12/10/20 02:39 Bite Cells Not Reportable 12/10/20 02:39 Crenated Cell Not Reportable 12/10/20 02:39 Elliptocytes Not Reportable 12/10/20 02:39 Acanthocytes (Spur) Not Reportable 12/10/20 02:39 Rouleaux Not Reportable 12/10/20 02:39 Hemoglobin C Crystals Not Reportable 12/10/20 02:39 Schistocytes Not Reportable 12/10/20 02:39 Malaria parasites Not Reportable 12/10/20 02:39 Po Bodies Not Reportable 12/10/20 02:39 Hem Pathologist Commnt No 12/10/20 02:39 PT 17.5 Sec. (12.2-14.9) H 12/14/20 06:55 INR 1.37 (0.87-1.13) H 12/14/20 06:55 APTT 29.2 Sec. (24.2-36.6) 12/11/20 15:45 Fibrinogen 120 mg/dl (211-480) L* 12/14/20 06:55 D-Dimer > 50686 ng/mlDDU (0-234) H 12/14/20 06:55 Heparin Anti-Xa Level < 0.10 U.I./ml (0.3-0.7) L 12/11/20 15:45 ABG pH Not Reportable 12/14/20 06:25 POC ABG pCO2 45.9 mmHg (32.0-48.0) 12/13/20 04:00 ABG pCO2 Not Reportable 12/14/20 06:25 POC ABG pO2 56.6 mmHg (83-108) L 12/13/20 04:00 ABG pO2 Not Reportable 12/14/20 06:25 POC ABG HCO3 25.4 12/13/20 04:00 ABG HCO3 Not Reportable 12/14/20 06:25 ABG O2 Saturation 75.8 % (95.0-99.0) L 12/14/20 06:25 ABG O2 Content 6.2 (0.0-44) 12/14/20 06:25 POC ABG Base Excess -0.1 12/13/20 04:00 ABG Base Excess Not Reportable 12/14/20 06:25 ABG Hemoglobin 5.8 gm/dl (12.0-16.0) L 12/14/20 06:25 ABG Oxyhemoglobin 85.1 (94-98) L 12/13/20 04:00 ABG Carboxyhemoglobin 2.3 % (0.0-5.0) 12/14/20 06:25 ABG Methemoglobin 0.6 % (0.0-1.5) 12/14/20 06:25 ABG Sodium 142.9 mmol/L (136.0-145.0) 12/13/20 04:00 ABG Potassium 4.5 mmol/L (3.40-4.50) 12/13/20 04:00 ABG Chloride 118.0 mmol/L (98-107) H 12/13/20 04:00 ABG Glucose 231 mg/dL (65-95) H 12/13/20 04:00 Oxyhemoglobin 73.5 % (95.0-99.0) L 12/14/20 06:25 Carboxyhemoglobin 2.0 (0.5-1.5) H 12/13/20 04:00 FiO2 10 % 12/14/20 06:25 FiO2 % 90.0 12/13/20 04:00 Sodium 147 mmol/L (137-145) H 12/14/20 06:55 Potassium 5.3 mmol/L (3.6-5.0) H 12/14/20 06:55 Chloride 116.7 mmol/L (98-107) H 12/14/20 06:55 Carbon Dioxide 22 mmol/L (22-30) 12/14/20 06:55 Anion Gap 14 mmol/L 12/14/20 06:55 BUN 55 mg/dL (7-17) H 12/14/20 06:55 Creatinine 1.0 mg/dL (0.6-1.2) 12/14/20 06:55 Estimated GFR > 60 ml/min 12/14/20 06:55 BUN/Creatinine Ratio 55 % 12/14/20 06:55 Glucose 368 mg/dL (65-100) H 12/14/20 06:55 POC Glucose 524 mg/dL (70-105) H 12/14/20 17:05 Hemoglobin A1c 9.5 % (4-6) H 12/02/20 06:15 Lactic Acid 2.50 mmol/L (0.7-2.0) H* 12/09/20 13:08 Calcium 8.5 mg/dL (8.4-10.2) 12/14/20 06:55 Phosphorus 3.00 mg/dL (2.5-4.5) 12/13/20 06:55 Magnesium 3.10 mg/dL (1.7-2.3) H 12/13/20 06:55 Ferritin 398.2 ng/mL (10.0-200.0) H 12/14/20 06:55 Total Bilirubin 0.50 mg/dL (0.1-1.2) 12/14/20 06:55 AST 86 units/L (5-40) H 12/14/20 06:55 ALT 16 units/L (7-56) 12/14/20 06:55 Alkaline Phosphatase 270 units/L (35-129) H 12/14/20 06:55 Lactate Dehydrogenase 2448 units/L (91-180) H 12/14/20 06:55 Total Creatine Kinase 521 units/L (30-135) H 12/08/20 20:15 CK-MB (CK-2) 31.5 ng/mL (0.0-4.0) H 12/08/20 20:15 CK-MB (CK-2) Rel Index 6.0 (0-4) H 12/08/20 20:15 Troponin T 0.487 ng/mL (0.00-0.029) H* D 12/09/20 13:08 C-Reactive Protein 9.10 mg/dL (0.00-1.30) H 12/14/20 06:55 NT-Pro-B Natriuret Pep 2396 pg/mL (0-900) H 12/09/20 13:08 Total Protein 5.2 g/dL (6.3-8.2) L 12/14/20 06:55 Albumin 2.7 g/dL (3.9-5) L 12/14/20 06:55 Albumin/Globulin Ratio 1.1 % 12/14/20 06:55 Triglycerides 327 mg/dL (2-149) H 12/14/20 08:38 Cholesterol 88 mg/dL (50-199) 12/08/20 13:25 LDL Cholesterol Direct 30 mg/dL (50-130) L 12/08/20 13:25 HDL Cholesterol 35 mg/dL (40-59) L 12/08/20 13:25 Cholesterol/HDL Ratio 2.51 % 12/08/20 13:25 Procalcitonin 1.18 ng/mL (<0.15) 12/02/20 03:58 Arterial Blood Glucose 231 mg/dL (65-95) H 12/13/20 04:00 Arterial Blood Ionized Calcium 4.8 mg/dL (4.6-5.3) 12/13/20 04:00 Coronavirus (PCR) Positive (Negative) A 12/02/20 08:15 Blood Type O POSITIVE 12/14/20 14:20 Antibody Screen Negative 12/14/20 14:20 Crossmatch See Detail 12/14/20 14:20 Carpenter/IV: Voiding Method Indwelling Catheter Active Medications - Current Medications Current Medications: Generic Name Dose Route Start Last Admin Trade Name Freq PRN Reason Stop Dose Admin Acetaminophen 650 mg 12/02/20 05:09 12/12/20 18:19 Acetaminophen 325 Mg Tab PO 650 mg Q4H PRN Administration Pain MILD(1-3)/Fever >100.5/LARA Albuterol 2.5 mg 12/02/20 05:09 Albuterol 2.5 Mg/3 Ml Nebu IH Q3HRT PRN Shortness Of Breath Lipase/Protease/Amylase 1 each 12/09/20 10:32 Lipase 10,500/Protease 25,000/Amylase 43,750 (Units) Dr Fong FEEDTUBE PRN PRN For Clogged Feeding Tube Ascorbic Acid 500 mg 12/03/20 22:00 12/14/20 10:37 Ascorbic Acid 500 Mg Tab PO 500 mg BID AZAEL Administration Aspirin 81 mg 12/08/20 13:00 12/14/20 10:36 Aspirin 81 Mg Tab Chew PO Not Given QDAY AZAEL Atorvastatin Calcium 40 mg 12/08/20 22:00 12/13/20 21:54 Atorvastatin 40 Mg Tab PO 40 mg QHS AZAEL Administration Cholecalciferol 5,000 unit 12/02/20 10:00 12/14/20 10:37 Cholecalciferol (Vit D3) 5,000 Unit Tab PO 5,000 unit DAILY AZAEL Administration Clopidogrel Bisulfate 75 mg 12/09/20 10:00 12/14/20 10:36 Clopidogrel 75 Mg Tab PO Not Given QDAY AZAEL Dextrose 50 ml 12/02/20 05:09 12/05/20 08:09 Dextrose 50% In Water (25gm) 50 Ml Syringe IV 50 ml Q30MIN PRN Administration Hypoglycemia Protocol Docusate Sodium 100 mg 12/14/20 10:00 12/14/20 10:36 Docusate Sodium 100 Mg/10 Ml Oral Liqd FEEDTUBE 100 mg BID AZAEL Administration Fentanyl 50 mcg 12/08/20 15:13 Fentanyl 100 Mcg/2 Ml Inj IV Q10MIN PRN ANALGESIA Hydrophilic Ointment 1 applic 12/08/20 15:56 Lip Therapy Vaseline TP Q2HR PRN Dry Lips Fentanyl Citrate 2,000 mcg in 100 mls @ 3.243 mls/hr 12/08/20 16:00 12/14/20 14:03 Fentanyl Drip Premix IV 4 mcg/kg/hr TITR AZAEL 12.973 mls/hr Administration Protocol 1 MCG/KG/HR NORepinephrine/NS 8 MG-250 ML 8 mg in 250 mls @ 3.75 mls/hr 12/08/20 16:00 12/14/20 17:11 Norepinephrine/Ns 8 Mg-250 Ml (Double Conc) IV 8 mcg/min TITRATE AZAEL 15 mls/hr Titration Protocol 2 MCG/MIN Propofol 1,000 mg in 100 mls @ 1.946 mls/hr 12/08/20 17:00 12/14/20 14:04 Diprivan 10 Mg/Ml IV 35 mcg/kg/min TITR AZAEL 13.621 mls/hr Titration Protocol 5 MCG/KG/MIN Sodium Chloride 500 mls @ 1 mls/hr 12/08/20 17:19 12/13/20 14:10 Nacl 0.9% 500 Ml IV 250 mls/hr DIRECT PRN Administration ARTERIAL LINE FLUSH Vasopressin 20 unit/ Sodium 101 mls @ 9.09 mls/hr 12/10/20 04:00 12/14/20 17:08 Chloride IV 0.03 units/min TITR AZAEL 9.09 mls/hr Administration Protocol 0.03 UNITS/MIN Sodium Chloride 500 mls @ 0 mls/hr 12/14/20 09:53 Nacl 0.9% 500 Ml IV 12/14/20 23:59 ONCE NR As Directed Diltiazem HCl 100 mg in 100 mls @ 5 mls/hr 12/14/20 11:00 12/14/20 14:03 Cardizem/D5w 100mg/100ml IV 10 mg/hr TITR AZAEL 10 mls/hr Titration Protocol 5 MG/HR Insulin Glargine 25 units 12/14/20 18:00 Insulin Glargine 100 Units/Ml SUB-Q BID [facility] Insulin Human Isoph/Insulin Regular 10 unit 12/14/20 17:22 Insulin Nph/Regular 70/30 Inj SUB-Q 12/14/20 17:23 ONCE ONE Insulin Human Lispro 0 unit 12/14/20 18:00 Insulin Lispro 100 Unit/Ml SUB-Q Q4H [facility] Protocol Methylprednisolone Sodium Succinate 60 mg 12/13/20 11:00 12/14/20 10:37 Methylprednisolone Sod Succinate 125 Mg/2 Ml Inj IV 12/16/20 10:59 60 mg Q12H [facility] Administration Metoclopramide HCl 5 mg 12/11/20 12:00 12/14/20 16:38 Metoclopramide 10 Mg/2 Ml Inj IV Not Given Q6H [facility] Multi-Ingred Cream/Lotion/Oil/Oint 1 applic 12/08/20 15:56 Mineral Oil/Petrolatum, White Ophth Oint 3.5 Gm OU Q4HR PRN Dry Eye(s) Nitroglycerin 1 inch 12/08/20 14:00 12/14/20 17:13 Nitroglycerin 2% Oint 1 Gm TP Not Given QIDNTG [facility] Protocol Ondansetron HCl 4 mg 12/02/20 05:09 Ondansetron 4 Mg/2 Ml Inj IV Q6H PRN Nausea And Vomiting Pantoprazole Sodium 40 mg 12/13/20 10:00 12/14/20 10:36 Pantoprazole 40 Mg Inj IV 40 mg BID [facility] Administration Senna/Docusate Sodium 1 tab 12/08/20 22:00 12/14/20 10:36 Sennosides/Docusate Sodium 8.6/50 Mg Tab FEEDTUBE 1 tab BID AZAEL Administration Simple Syrup 30 ml 12/09/20 10:32 Simple Syrup 15 Ml FEEDTUBE PRN PRN Hypoglycemia Sodium Bicarbonate 325 mg 12/09/20 10:32 Sodium Bicarbonate 325 Mg Tab FEEDTUBE PRN PRN For Clogged Feeding Tube Sodium Chloride 10 ml 12/02/20 10:00 12/14/20 10:36 Sodium Chloride 0.9% 10 Ml Flush Syringe IV 10 ml BID AZAEL Administration Sodium Chloride 10 ml 12/02/20 05:09 Sodium Chloride 0.9% 10 Ml Flush Syringe IV PRN PRN LINE FLUSH Zinc Sulfate 220 mg 12/02/20 10:00 12/14/20 10:37 Zinc Sulfate 220 Mg Cap PO 220 mg QDAY AZAEL Administration Nutrition/Malnutrition Assess - Dietary Evaluation Nutrition/Malnutrition Findings: Nutrition Notes Start: 12/03/20 10:33 Freq: Status: Active Protocol: Document 12/14/20 10:32 (Rec: 12/14/20 10:42 [id number]) Nutrition Notes Initial or Follow up Reassessment Current Diagnosis Respiratory Failure Other Pertinent Diagnosis Covid +, Hyperglycemia Current Diet Vital AF at 45 ml/hr Labs/Tests Na 147 K 5.3 BUN 55 BG 368 Pertinent Medications Propofol at 11.676 ml/hr Height 4 ft 11.84 in Weight 64.86 kg [place] Body Weight (kg) 45.09 BMI 28.0 Weight Status Overweight Subjective/Other Information TF running at 45ml/hr (goal rate) and pt tolerating. Percent of energy/protein needs met: 98%/100% Burn Absent Trauma Absent Current % PO Negligible Minimum of two criteria No #1 Nutrition Diagnosis Inadequate oral intake Diagnosis Progress(for reassessment Continues documentation) Is patient on ventilator? Yes Is Patient Ambulatory and/or Out of Bed No REE-([facility]-confined to bed) 1328.282 Calculation Used for Recommendations [facility] Additional Notes Pro needs 1.2-2g/k-130g/ day Fluid needs 1ml/kcal Nutrition Intervention Change Diet Order: continue Nutrition Support: Vital AF 1.2 at 45 ml/hr. Flush 75 ml q4h or per MD. Kcal 1,296 Protein (gm) 81 Fluid (mL) 876 Goal #1 Meet at least 75% of protein and energy needs via TF Anticipated Discharge Needs: Unable to determine at this time Follow-Up By: 12/16/20 Additional Comments F/u: TF tolerance and renal funciton
[2020-12-14] MEDS: NORepinephrine/NS 8 MG-250 ML 8 MG/250 ML INFUS..BTL IV SCH (17:08)
[2020-12-14] MEDS: VASOPRESSIN 20 UNIT in SODIUM CHLORIDE 0.9% 100 ML IV SCH (17:08)
[2020-12-14] MEDS ORDERED: DEXTROSE 50% IN WATER (25GM) 50 ML SYRINGE IV PRN (17:18)
[2020-12-14] MEDS ORDERED: INSULIN NPH/REGULAR 70/30 INJ SUB-Q ONE (17:22)
[2020-12-14] MEDS ORDERED: INSULIN REGULAR, HUMAN 100 UNITS/1 ML SUB-Q SCH (18:00)
[2020-12-14] MEDS: INSULIN GLARGINE 100 UNITS/ML SUB-Q SCH ×2 (18:18→22:16)
[2020-12-14] MEDS ORDERED: INSULIN GLARGINE 100 UNITS/ML SUB-Q SCH (22:00)
[2020-12-15] MEDS: METOCLOPRAMIDE 10 MG/2 ML INJ IV SCH ×3 (00:17→13:36)
[2020-12-15] MEDS: SENNOSIDES/DOCUSATE SODIUM 8.6/50 MG TAB FEEDTUBE SCH ×3 (00:29→21:59)
[2020-12-15 02:39] LABS: Hematocrit 23.6 % (30.3-42.9); Hemoglobin 7.7 gm/dl (10.1-14.3); Mean Corpuscular HGB Conc 33 % (30-34); Mean Corpuscular Volume 86 fl (79-97); Red Blood Count 2.76 M/mm3 (3.65-5.03)
[2020-12-15 03:06] LABS: Platelet Count 31 K/mm3 (140-440)
--- NOTE | 2020-12-15 03:15 | Hem/Onc Progress Note ---
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 thrombocytopenia and arm DVT 65yo AA woman with recent covid symptoms-->abn Chest CT-->now admitted for covid pneumonia, s/p VT has been intubated in ICU-->hypoxia-->IV heparin for presumed PE has been receiving steroids, s/p tocilizumab right arm brachial DVT found, Left hand ischemia described received IV heparin-->oral bleeding-->RBC transfusion 12/10/20 and again yest 12/13/20 has had low fibrinogen has been on vasopressors still has bleeding around mouth, ET tube unable to start argatroban data reviewed below IMP: covid pneumonia, critically ill, on vasopressors presumed clotting tendency with L hand digital ischemia, R arm DVT, STEMI "clotter-bleeder", not tolerating "full dose" heparin low fibrinogen related to critical illness, maybe HIT very high LDH likely due to tisssue injury REC: labs to include PF4 Ab cryo transfusion today back on steroids for presumed adrenal insufficiency consider "low dose" argatroban if/when bleeding stops RBC transfusions for bleeding or severe anemia Active Medications Methylprednisolone Sodium Succinate (Methylprednisolone Sod Succinate 125 Mg/2 Ml Inj) 60 mg IV Q12H AZAEL Stop: 12/16/20 10:59 Last Admin: 12/14/20 22:13 Dose: 60 mg Documented by: Laboratory Last Values WBC 19.4 K/mm3 (4.5-11.0) H 12/15/20 02:15 Hgb 7.7 gm/dl (10.1-14.3) L 12/15/20 02:15 Hct 23.6 % (30.3-42.9) L 12/15/20 02:15 Plt Count 31 K/mm3 (140-440) L 12/15/20 02:15 PT 17.5 Sec. (12.2-14.9) H 12/14/20 06:55 INR 1.37 (0.87-1.13) H 12/14/20 06:55 APTT 29.2 Sec. (24.2-36.6) 12/11/20 15:45 Fibrinogen 120 mg/dl (211-480) L* 12/14/20 06:55 D-Dimer > 65863 ng/mlDDU (0-234) H 12/14/20 06:55 Creatinine 1.0 mg/dL (0.6-1.2) 12/14/20 06:55 Total Bilirubin 0.50 mg/dL (0.1-1.2) 12/14/20 06:55 AST 86 units/L (5-40) H 12/14/20 06:55 ALT 16 units/L (7-56) 12/14/20 06:55 Alkaline Phosphatase 270 units/L (35-129) H 12/14/20 06:55 Lactate Dehydrogenase 2448 units/L (91-180) H 12/14/20 06:55 Total Creatine Kinase 521 units/L (30-135) H 12/08/20 20:15 Coronavirus (PCR) Positive (Negative) A 12/02/20 08:15 Blood Type O POSITIVE 12/14/20 14:20 Antibody Screen Negative 12/14/20 14:20 Crossmatch See Detail 12/14/20 14:20 Objective - Constitutional Vitals: Last Vital Signs Temp 98.6 F 12/15/20 00:00 Pulse 74 12/15/20 02:30 Resp 20 12/15/20 02:30 BP 112/38 12/15/20 02:30 Pulse Ox 98 12/15/20 02:30 - Labs Lab Results: Laboratory Results - last 24 hr 12/10/20 12/14/20 12/14/20 04:10 04:59 06:25 WBC RBC Hgb Hct MCV MCH MCHC RDW Plt Count PT INR Fibrinogen D-Dimer ABG pH Not Reportable ABG pCO2 Not Reportable ABG pO2 Not Reportable ABG HCO3 Not Reportable ABG O2 Saturation 75.8 L ABG O2 Content 6.2 ABG Base Excess Not Reportable ABG Hemoglobin 5.8 L ABG Carboxyhemoglobin 2.3 ABG Methemoglobin 0.6 Oxyhemoglobin 73.5 L FiO2 10 Sodium Potassium Chloride Carbon Dioxide Anion Gap BUN Creatinine Estimated GFR BUN/Creatinine Ratio Glucose POC Glucose 362 H Lactic Acid Calcium Ferritin Total Bilirubin AST ALT Alkaline Phosphatase Lactate Dehydrogenase C-Reactive Protein Total Protein Albumin Albumin/Globulin Ratio Triglycerides Blood Type Antibody Screen Crossmatch See Detail 12/14/20 12/14/20 12/14/20 06:55 06:55 06:55 WBC 18.7 H RBC 2.27 L Hgb 5.9 L* Hct 19.6 L* MCV 86 MCH 26 L MCHC 30 RDW 20.7 H Plt Count 58 L PT 17.5 H INR 1.37 H Fibrinogen 120 L* D-Dimer > 26274 H ABG pH ABG pCO2 ABG pO2 ABG HCO3 ABG O2 Saturation ABG O2 Content ABG Base Excess ABG Hemoglobin ABG Carboxyhemoglobin ABG Methemoglobin Oxyhemoglobin FiO2 Sodium Potassium Chloride Carbon Dioxide Anion Gap BUN Creatinine Estimated GFR BUN/Creatinine Ratio Glucose POC Glucose Lactic Acid Calcium Ferritin 398.2 H Total Bilirubin AST ALT Alkaline Phosphatase Lactate Dehydrogenase C-Reactive Protein Total Protein Albumin Albumin/Globulin Ratio Triglycerides Blood Type Antibody Screen Crossmatch 12/14/20 12/14/20 12/14/20 06:55 08:38 11:42 WBC RBC Hgb Hct MCV MCH MCHC RDW Plt Count PT INR Fibrinogen D-Dimer ABG pH ABG pCO2 ABG pO2 ABG HCO3 ABG O2 Saturation ABG O2 Content ABG Base Excess ABG Hemoglobin ABG Carboxyhemoglobin ABG Methemoglobin Oxyhemoglobin FiO2 Sodium 147 H Potassium 5.3 H Chloride 116.7 H Carbon Dioxide 22 Anion Gap 14 BUN 55 H Creatinine 1.0 Estimated GFR > 60 BUN/Creatinine Ratio 55 Glucose 368 H POC Glucose 454 H Lactic Acid Calcium 8.5 Ferritin Total Bilirubin 0.50 AST 86 H ALT 16 Alkaline Phosphatase 270 H Lactate Dehydrogenase 2448 H C-Reactive Protein 9.10 H Total Protein 5.2 L Albumin 2.7 L Albumin/Globulin Ratio 1.1 Triglycerides 327 H Blood Type Antibody Screen Crossmatch 12/14/20 12/14/20 12/14/20 14:20 17:04 17:05 WBC RBC Hgb Hct MCV MCH MCHC RDW Plt Count PT INR Fibrinogen D-Dimer ABG pH ABG pCO2 ABG pO2 ABG HCO3 ABG O2 Saturation ABG O2 Content ABG Base Excess ABG Hemoglobin ABG Carboxyhemoglobin ABG Methemoglobin Oxyhemoglobin FiO2 Sodium Potassium Chloride Carbon Dioxide Anion Gap BUN Creatinine Estimated GFR BUN/Creatinine Ratio Glucose POC Glucose 506 H 524 H Lactic Acid Calcium Ferritin Total Bilirubin AST ALT Alkaline Phosphatase Lactate Dehydrogenase C-Reactive Protein Total Protein Albumin Albumin/Globulin Ratio Triglycerides Blood Type O POSITIVE Antibody Screen Negative Crossmatch See Detail 12/14/20 12/15/20 12/15/20 21:16 02:15 02:15 WBC 19.4 H RBC 2.76 L Hgb 7.7 L Hct 23.6 L MCV 86 MCH 28 MCHC 33 RDW 18.0 H Plt Count 31 L PT INR Fibrinogen D-Dimer ABG pH ABG pCO2 ABG pO2 ABG HCO3 ABG O2 Saturation ABG O2 Content ABG Base Excess ABG Hemoglobin ABG Carboxyhemoglobin ABG Methemoglobin Oxyhemoglobin FiO2 Sodium Potassium Chloride Carbon Dioxide Anion Gap BUN Creatinine Estimated GFR BUN/Creatinine Ratio Glucose POC Glucose 483 H Lactic Acid 1.80 Calcium Ferritin Total Bilirubin AST ALT Alkaline Phosphatase Lactate Dehydrogenase C-Reactive Protein Total Protein Albumin Albumin/Globulin Ratio Triglycerides Blood Type Antibody Screen Crossmatch Medications & Allergies - Medications Allergies/Adverse Reactions: Allergies shellfish derived Allergy (Verified 12/02/20 03:37) Unknown Home Medications: Home Medications Medication Instructions Recorded Confirmed Last Taken Type [id number] [id number] mg Tab 3 mg PO DAILY 12/03/20 12/03/20 12/02/20 History Iron 65 mg PO DAILY 12/03/20 12/03/20 12/02/20 History Lisinopril/Hydrochlorothiazide 20 mg PO DAILY 12/03/20 12/03/20 Unknown History Metformin HCl [metFORMIN] 1,000 mg PO BID 12/03/20 12/03/20 12/02/20 History Simvastatin 40 mg PO DAILY 12/03/20 12/03/20 Unknown History glipiZIDE 10 mg PO DAILY 12/03/20 12/03/20 Unknown History Active Medications: Generic Name Dose Route Start Last Admin Trade Name Freq PRN Reason Stop Dose Admin Acetaminophen 650 mg 12/02/20 05:09 12/12/20 18:19 Acetaminophen 325 Mg Tab PO 650 mg Q4H PRN Administration Pain MILD(1-3)/Fever >100.5/LARA Albuterol 2.5 mg 12/02/20 05:09 Albuterol 2.5 Mg/3 Ml Nebu IH Q3HRT PRN Shortness Of Breath Lipase/Protease/Amylase 1 each 12/09/20 10:32 Lipase 10,500/Protease 25,000/Amylase 43,750 (Units) Dr Fong FEEDTUBE PRN PRN For Clogged Feeding Tube Ascorbic Acid 500 mg 12/03/20 22:00 12/14/20 22:13 Ascorbic Acid 500 Mg Tab PO 500 mg BID AZAEL Administration Aspirin 81 mg 12/08/20 13:00 12/14/20 10:36 Aspirin 81 Mg Tab Chew PO Not Given QDAY AZAEL Atorvastatin Calcium 40 mg 12/08/20 22:00 12/14/20 22:13 Atorvastatin 40 Mg Tab PO 40 mg QHS AZAEL Administration Cholecalciferol 5,000 unit 12/02/20 10:00 12/14/20 10:37 Cholecalciferol (Vit D3) 5,000 Unit Tab PO 5,000 unit DAILY AZAEL Administration Clopidogrel Bisulfate 75 mg 12/09/20 10:00 12/14/20 10:36 Clopidogrel 75 Mg Tab PO Not Given QDAY AZAEL Dextrose 50 ml 12/02/20 05:09 12/05/20 08:09 Dextrose 50% In Water (25gm) 50 Ml Syringe IV 50 ml Q30MIN PRN Administration Hypoglycemia Protocol Docusate Sodium 100 mg 12/14/20 10:00 12/14/20 22:13 Docusate Sodium 100 Mg/10 Ml Oral Liqd FEEDTUBE 100 mg BID AZAEL Administration Fentanyl 50 mcg 12/08/20 15:13 Fentanyl 100 Mcg/2 Ml Inj IV Q10MIN PRN ANALGESIA Hydrophilic Ointment 1 applic 12/08/20 15:56 Lip Therapy Vaseline TP Q2HR PRN Dry Lips Fentanyl Citrate 2,000 mcg in 100 mls @ 3.243 mls/hr 12/08/20 16:00 12/14/20 21:39 Fentanyl Drip Premix IV 4 mcg/kg/hr TITR AZAEL 12.973 mls/hr Administration Protocol 1 MCG/KG/HR NORepinephrine/NS 8 MG-250 ML 8 mg in 250 mls @ 3.75 mls/hr 12/08/20 16:00 12/15/20 02:17 Norepinephrine/Ns 8 Mg-250 Ml (Double Conc) IV 8 mcg/min TITRATE AZAEL 15 mls/hr Titration Protocol 2 MCG/MIN Propofol 1,000 mg in 100 mls @ 1.946 mls/hr 12/08/20 17:00 12/14/20 21:07 Diprivan 10 Mg/Ml IV 35 mcg/kg/min TITR AZAEL 13.621 mls/hr Administration Protocol 5 MCG/KG/MIN Sodium Chloride 500 mls @ 1 mls/hr 12/08/20 17:19 12/13/20 14:10 Nacl 0.9% 500 Ml IV 250 mls/hr DIRECT PRN Administration ARTERIAL LINE FLUSH Vasopressin 20 unit/ Sodium 101 mls @ 9.09 mls/hr 12/10/20 04:00 12/14/20 17:08 Chloride IV 0.03 units/min TITR AZAEL 9.09 mls/hr Administration Protocol 0.03 UNITS/MIN Diltiazem HCl 100 mg in 100 mls @ 5 mls/hr 12/14/20 11:00 12/14/20 21:09 Cardizem/D5w 100mg/100ml IV 10 mg/hr TITR AZAEL 10 mls/hr Administration Protocol 5 MG/HR Insulin Glargine 25 units 12/14/20 18:00 12/14/20 22:16 Insulin Glargine 100 Units/Ml SUB-Q 25 units BID [facility] Administration Insulin Human Lispro 0 unit 12/14/20 18:00 12/14/20 22:15 Insulin Lispro 100 Unit/Ml SUB-Q 10 unit Q4H [facility] Administration Protocol Methylprednisolone Sodium Succinate 60 mg 12/13/20 11:00 12/14/20 22:13 Methylprednisolone Sod Succinate 125 Mg/2 Ml Inj IV 12/16/20 10:59 60 mg Q12H [facility] Administration Metoclopramide HCl 5 mg 12/11/20 12:00 12/15/20 00:17 Metoclopramide 10 Mg/2 Ml Inj IV 5 mg Q6H [facility] Administration Multi-Ingred Cream/Lotion/Oil/Oint 1 applic 12/08/20 15:56 Mineral Oil/Petrolatum, White Ophth Oint 3.5 Gm OU Q4HR PRN Dry Eye(s) Nitroglycerin 1 inch 12/08/20 14:00 12/14/20 17:13 Nitroglycerin 2% Oint 1 Gm TP Not Given QIDNTG [facility] Protocol Ondansetron HCl 4 mg 12/02/20 05:09 Ondansetron 4 Mg/2 Ml Inj IV Q6H PRN Nausea And Vomiting Pantoprazole Sodium 40 mg 12/13/20 10:00 12/14/20 22:13 Pantoprazole 40 Mg Inj IV 40 mg BID AZAEL Administration Senna/Docusate Sodium 1 tab 12/08/20 22:00 12/15/20 00:29 Sennosides/Docusate Sodium 8.6/50 Mg Tab FEEDTUBE Not Given BID AZAEL Simple Syrup 30 ml 12/09/20 10:32 Simple Syrup 15 Ml FEEDTUBE PRN PRN Hypoglycemia Sodium Bicarbonate 325 mg 12/09/20 10:32 Sodium Bicarbonate 325 Mg Tab FEEDTUBE PRN PRN For Clogged Feeding Tube Sodium Chloride 10 ml 12/02/20 10:00 12/14/20 22:00 Sodium Chloride 0.9% 10 Ml Flush Syringe IV 10 ml BID AZAEL Administration Sodium Chloride 10 ml 12/02/20 05:09 Sodium Chloride 0.9% 10 Ml Flush Syringe IV PRN PRN LINE FLUSH Zinc Sulfate 220 mg 12/02/20 10:00 12/14/20 10:37 Zinc Sulfate 220 Mg Cap PO 220 mg QDAY AZAEL Administration
[2020-12-15] MEDS: INSULIN LISPRO 100 UNIT/ML SUB-Q SCH ×7 (03:49→21:58)
[2020-12-15] MEDS: fentaNYL DRIP Premix 2,000 MCG/100 ML BAG IV SCH ×3 (05:40→19:12)
[2020-12-15] MEDS: dilTIAZem/D5W 100 MG/100 ML BAG IV SCH (05:44)
[2020-12-15 06:01] LABS: INR 1.4 (0.87-1.13)
[2020-12-15] MEDS: NITROGLYCERIN 2% OINT 1 GM TP SCH ×2 (06:28→09:48)
[2020-12-15 06:30] LABS: Albumin 2.1 g/dL (3.9-5); Calcium 8.2 mg/dL (8.4-10.2)
--- NOTE | 2020-12-15 07:44 | Vascular Lab Report ---
DUPLEX DOPPLER UPPER EXTREMITY ARTERIAL, LEFT INDICATION / CLINICAL INFORMATION: ischemia of digits. Left upper extremity ischemic digits TECHNIQUE: Arterial duplex examination of both upper extremities performed using B-mode, color flow a nd spectral Doppler assessment. FINDINGS: Comment: This examination is just presented to me for interpretation. LEFT: -Subclavian: PSV 154 cm/sec. Triphasic waveform. - Axillary: PSV 82 cm/sec. Triphasic waveform. - Brachial: PSV 61 cm/sec. Triphasic waveform. - Radial: Occluded - Ulnar: PSV 113 cm/sec. Triphasic waveform. IMPRESSION: Occlusion of the left radial artery. These findings were reported to the charge nurseNitin at 0958 hours Signer Name: Travis Monroe Jr, MD Signed: 12/15/2020 7:40 AM Workstation Name: [id number]
--- NOTE | 2020-12-15 09:41 | Electrocardiograph Report ---
[facility] Test Date: 2020-12-14 Test Time: 11:49:15 Pat Name: KENNETH REIS Department: Room: A255 1 Gender: F Sign Language Interpreter: AGATA : [id number] Requested By: LENO CUENCA Order Number: [id number] Reading MD: Leno Cuenca Measurements Intervals Horatio Rate: 127 P: [place]: QRS: 18 QRSD: 74 T: 54 QT: 311 QTc: 464 Interpretive Statements Atrial fibrillation WITH RVR ST depression [id number] ISCHEMIA [id number] Compared to ECG 12/08/2020 11:37:30 ST (T wave) deviation now present Sinus tachycardia no longer present Myocardial infarct finding no longer present Electronically Signed On 12-15-2020 9:40:46 EDT by Leno Cuenca
[2020-12-15] MEDS: INSULIN GLARGINE 100 UNITS/ML SUB-Q SCH ×2 (09:45→21:55)
[2020-12-15] MEDS: CHOLECALCIFEROL (VIT D3) 5,000 UNIT TAB PO SCH (09:46)
[2020-12-15] MEDS: PANTOPRAZOLE 40 MG INJ IV SCH ×2 (09:46→21:55)
[2020-12-15] MEDS: ASPIRIN 81 MG TAB CHEW PO SCH (09:46)
[2020-12-15] MEDS: DOCUSATE SODIUM 100 MG/10 ML ORAL LIQD FEEDTUBE SCH ×2 (09:46→21:56)
--- NOTE | 2020-12-15 09:46 | Progress Note ---
<CHALO CARPIO - Last Filed: 12/15/20 12:11> Assessment and Plan Abnormal EKG with inferior ST elevation during hospital course hyperdynamic LVEF 65-70% however normal wall motion on echo Paroxysmal atrial fibrillation spontaneously reverted to SR; on IV diltiazem for suppression. COVID 19 pneumonia Acute respiratory failure intubated on the vent Anemia/Thrombocytopenia Hypertension now hypotensive Diabetes Patient is not a candidate for invasive cardiac procedures due to respiratory failure and severe COVID 19 pneumonia. Continue medical therapy for underlying CAD and paroxysmal atrial fibrillation as tolerated. Subjective Date of service: 12/15/20 Principal diagnosis: Ac hypoxemic resp failure; COVID-19 infection; Pneumonia; ARDS; DM II; HTN Interval history: Patient remains intubated and on pressors for support. Currently, she is sinus rhythm on telemetry. Objective Vital Signs Temp Pulse Pulse Resp BP Pulse Ox 12/15/20 09:30 82 24 94/34 100 12/15/20 09:29 97.9 F 12/15/20 09:15 83 22 104/37 100 12/15/20 09:00 83 15 105/36 100 12/15/20 08:46 81 21 100 12/15/20 08:40 79 90/38 100 12/15/20 08:30 92 H 20 90/38 100 12/15/20 08:15 87 24 104/41 100 12/15/20 08:00 86 21 107/45 100 12/15/20 07:45 90 24 99/37 100 12/15/20 07:30 92 H 15 115/56 100 12/15/20 07:16 85 13 112/37 99 12/15/20 07:00 81 15 109/43 100 12/15/20 06:45 82 14 111/44 100 12/15/20 06:30 70 14 112/52 100 12/15/20 06:15 82 20 118/40 100 12/15/20 06:00 70 16 136/58 100 12/15/20 05:46 75 18 117/54 93 12/15/20 05:30 71 17 156/48 95 12/15/20 05:16 62 17 120/36 94 12/15/20 05:00 69 14 95/35 100 12/15/20 04:46 70 14 95/42 95 12/15/20 04:30 67 10 L 95/35 94 12/15/20 04:15 68 19 103/34 98 12/15/20 04:04 72 12/15/20 04:00 69 141 H 19 93/36 98 12/15/20 03:57 98.8 F 12/15/20 03:45 68 18 102/35 99 12/15/20 03:42 68 92/26 99 12/15/20 03:30 69 18 110/32 100 12/15/20 03:16 71 20 123/27 100 12/15/20 03:00 72 12 114/34 97 12/15/20 02:45 68 12 107/44 97 12/15/20 02:30 74 20 112/38 98 12/15/20 02:16 74 20 105/65 88 12/15/20 02:00 67 19 116/38 100 12/15/20 01:46 72 15 116/38 92 12/15/20 01:30 63 14 134/29 81 L 12/15/20 01:16 65 14 143/30 81 L 12/15/20 01:00 60 11 L 119/39 97 12/15/20 00:46 63 14 131/48 84 12/15/20 00:30 61 13 163/40 83 L 12/15/20 00:10 63 19 155/46 100 12/15/20 00:05 68 12/15/20 00:00 98.6 F 61 141 H 24 113/44 100 12/14/20 23:50 63 12 113/44 84 12/14/20 23:40 59 L 10 L 123/42 98 12/14/20 23:30 62 15 115/38 83 L 12/14/20 23:20 65 21 115/38 100 12/14/20 23:10 57 L 15 119/38 91 12/14/20 23:02 62 16 119/38 100 12/14/20 23:00 63 14 119/38 100 12/14/20 22:45 63 13 115/35 100 12/14/20 22:30 65 16 105/37 100 12/14/20 22:16 64 14 107/37 100 12/14/20 22:00 63 14 115/37 100 12/14/20 21:45 63 9 L 115/40 98 12/14/20 21:30 63 13 145/47 89 12/14/20 21:16 58 L 16 126/40 94 12/14/20 21:00 136/43 100 12/14/20 20:46 65 14 102/39 97 12/14/20 20:30 72 12 118/38 99 12/14/20 20:19 74 138/61 95 12/14/20 20:15 74 20 119/42 98 12/14/20 20:07 66 12/14/20 20:00 74 141 H 11 L 125/37 90 12/14/20 19:58 99.1 F 12/14/20 19:45 69 14 139/49 93 12/14/20 19:30 67 10 L 125/45 97 12/14/20 19:15 73 21 126/37 97 12/14/20 19:00 69 12 140/47 91 12/14/20 18:46 76 17 132/35 98 12/14/20 18:30 79 10 L 122/51 90 12/14/20 18:15 72 13 129/52 92 12/14/20 18:00 74 21 112/48 98 12/14/20 17:45 76 11 L 126/55 88 12/14/20 17:30 73 9 L 123/47 98 12/14/20 17:16 83 11 L 78/42 89 12/14/20 17:00 81 9 L 98/41 93 12/14/20 16:45 82 8 L 95/47 95 12/14/20 16:30 83 9 L 100/48 94 12/14/20 16:16 83 10 L 73/43 94 12/14/20 16:00 128 H 141 H 24 96/47 100 12/14/20 15:45 122 H 9 L 97/46 90 12/14/20 15:30 124 H 10 L 101/49 92 12/14/20 15:15 124 H 11 L 89/53 92 12/14/20 15:00 133 H 11 L 108/60 86 12/14/20 14:45 133 H 10 L 97/49 86 12/14/20 14:30 126 H 14 103/56 94 12/14/20 14:15 128 H 14 105/63 100 12/14/20 14:00 132 H 15 105/60 12/14/20 13:46 131 H 10 L 98/51 90 12/14/20 13:30 135 H 13 107/50 91 12/14/20 13:15 134 H 11 L 115/56 86 12/14/20 13:00 140 H 9 L 106/58 96 12/14/20 12:45 132 H 15 130/68 91 12/14/20 12:30 122 H 11 L 115/74 91 12/14/20 12:15 138 H 12 130/59 90 12/14/20 12:00 99.5 F 82 141 H 24 100/48 94 12/14/20 11:45 141 H 19 87/51 100 12/14/20 11:30 147 H 10 L 94/58 92 12/14/20 11:16 160 H 14 123/58 83 L 12/14/20 11:09 140 H 90/46 12/14/20 11:00 135 H 12 115/58 100 12/14/20 10:46 147 H 14 116/69 12/14/20 10:30 139 H 14 110/56 79 L 12/14/20 10:16 139 H 16 109/57 77 L 12/14/20 10:00 156 H 12 85/58 12/14/20 09:46 155 H 22 85/58 96 - Physical Examination Narrative exam: Deferred due to isolation protocol. General: Other (ON THE VENT) Cardiac: Positive: Reg Rate and Rhythm - Labs and Meds Cardiac Enzymes 12/15/20 Range/Units 05:10 AST 53 H (5-40) units/L Coagulation 12/15/20 Range/Units 05:10 PT 17.8 H (12.2-14.9) Sec. INR 1.40 H (0.87-1.13) CBC 12/15/20 Range/Units 02:15 WBC 19.4 H (4.5-11.0) K/mm3 RBC 2.76 L (3.65-5.03) M/mm3 Hgb 7.7 L (10.1-14.3) gm/dl Hct 23.6 L (30.3-42.9) % Plt Count 31 L (140-440) K/mm3 Comprehensive Metabolic Panel 12/15/20 Range/Units 05:10 Sodium 147 H (137-145) mmol/L Potassium 6.2 H* (3.6-5.0) mmol/L Chloride 116.7 H (98-107) mmol/L Carbon Dioxide 24 (22-30) mmol/L BUN 82 H (7-17) mg/dL Creatinine 1.3 H (0.6-1.2) mg/dL Glucose 661 H* (65-100) mg/dL Calcium 8.2 L (8.4-10.2) mg/dL AST 53 H (5-40) units/L ALT 12 (7-56) units/L Alkaline Phosphatase 298 H (35-129) units/L Total Protein 4.2 L (6.3-8.2) g/dL Albumin 2.1 L (3.9-5) g/dL - Allied health notes Allied health notes reviewed: nursing <LENO PERRY - Last Filed: 12/17/20 11:35> Assessment and Plan - Patient Problems (1) Acute myocardial infarction Status: Acute (2) Pneumonia due to COVID-19 virus Status: Acute (3) A-fib Status: Acute Subjective Interval history: I SAW THIS PT & AGREE WITH THE Dx & Tx PLAN. Objective Vital Signs Temp Pulse Pulse Resp BP Pulse Ox 12/16/20 23:54 0 L 12/16/20 23:15 91 H 23 146/46 100 12/16/20 23:00 92 H 22 139/46 99 12/16/20 22:45 90 21 141/44 98 12/16/20 22:30 97.3 F L 91 H 22 136/50 100 12/16/20 22:15 95 H 16 136/50 100 12/16/20 22:00 97.3 F L 89 20 128/43 100 12/16/20 21:45 90 22 130/52 100 12/16/20 21:30 96.6 F L 90 21 124/44 100 12/16/20 21:15 91 H 20 131/41 99 12/16/20 21:00 93 H 19 110/47 99 12/16/20 20:46 95.5 F L 89 21 124/44 100 12/16/20 20:45 96 H 14 113/34 98 12/16/20 20:30 92 H 92 H 13 115/38 99 12/16/20 20:22 97.5 F L 93 H 22 107/35 100 12/16/20 20:18 94 H 107/35 100 12/16/20 20:17 92 H 12/16/20 20:15 93 H 13 107/35 97 12/16/20 20:00 98.0 F 96 H 11 L 118/32 99 12/16/20 19:45 96 H 11 L 110/29 100 12/16/20 19:30 98 H 12 101/32 99 12/16/20 19:15 98 H 11 L 111/31 99 12/16/20 19:00 99 H 11 L 109/29 97 12/16/20 18:58 97.7 F 95 H 14 113/34 98 12/16/20 18:54 97.0 F L 99 H 13 101/32 95 12/16/20 18:45 100 H 16 107/37 98 12/16/20 18:32 101 H 16 102/40 99 12/16/20 18:30 101 H 15 102/40 99 12/16/20 18:25 101 H 15 99/36 99 12/16/20 18:15 97.6 F 104 H 23 99/36 97 12/16/20 18:00 98 F 105 H 9 L 84/48 100 12/16/20 17:53 106 H 75/27 99 12/16/20 17:45 98.3 F 107 H 12 79/29 99 12/16/20 17:30 106 H 14 88/23 99 12/16/20 17:20 71 16 80/21 100 12/16/20 17:10 65 14 77/21 99 12/16/20 17:00 102 H 16 77/21 98 12/16/20 16:50 107 H 16 76/24 99 12/16/20 16:40 106 H 15 80/22 99 12/16/20 16:30 103 H 15 80/22 100 12/16/20 16:20 101 H 13 72/24 99 12/16/20 16:14 100 H 16 100 12/16/20 16:09 100 H 12/16/20 16:00 98.2 F 101 H 13 72/24 100 12/16/20 15:45 101 H 14 72/24 100 12/16/20 15:30 103 H 15 76/21 100 12/16/20 15:16 105 H 13 71/22 100 12/16/20 15:00 105 H 15 76/21 100 12/16/20 14:46 106 H 13 82/22 100 12/16/20 14:30 106 H 15 65/23 12/16/20 14:15 107 H 16 69/27 12/16/20 14:00 108 H 12 63/22 12/16/20 13:45 108 H 14 69/26 12/16/20 13:30 109 H 17 79/21 12/16/20 13:15 110 H 18 86/29 12/16/20 13:00 98.8 F 110 H 18 53/35 12/16/20 12:45 111 H 15 80/30 12/16/20 12:30 110 H 16 64/40 12/16/20 12:15 111 H 15 84/32 12/16/20 12:00 111 H 17 69/43 12/16/20 11:45 113 H 13 75/32 100
[2020-12-15] MEDS: ASCORBIC ACID 500 MG TAB PO SCH ×2 (09:47→21:56)
[2020-12-15] MEDS: ZINC SULFATE 220 MG CAP PO SCH (09:47)
[2020-12-15] MEDS: CLOPIDOGREL 75 MG TAB PO SCH (09:47)
[2020-12-15] MEDS: NORepinephrine/NS 8 MG-250 ML 8 MG/250 ML INFUS..BTL IV SCH (09:59)
[2020-12-15] MEDS ORDERED: INSULIN GLARGINE 100 UNITS/ML SUB-Q ONE (10:00)
[2020-12-15] MEDS: FREE WATER PO SCH ×4 (10:35→21:57)
[2020-12-15] MEDS ORDERED: SODIUM BICARB 8.4% 50 MEQ/50 ML SYRINGE IV ONE (11:00)
[2020-12-15] MEDS ORDERED: INSULIN REGULAR, HUMAN 100 UNITS/1 ML IV SCH (11:00)
[2020-12-15] MEDS ORDERED: CALCIUM GLUCONATE 1,000 MG in SODIUM CHLORIDE 0.9% 100 ML IV ONE (11:00)
[2020-12-15] MEDS ORDERED: SODIUM POLYSTYRENE 15 GM/60 ML ORAL LIQD PO ONE (11:00)
--- NOTE | 2020-12-15 12:18 | Progress Note ---
Assessment and Plan Assessment and plan: Assessment and Plan Assessment and plan: This is a 65 year old female with HTN, DM, GI bleed in 2016 admitted with COVID 19 pna, sepsis, acute hypoxic respiratory failure and ACS NEURO: metabolic encephalopathy; sedation -Patient opens eyes and moves lower extremities spontaneously -Patient is sedated on propofol, fentanyl -RASS goal 0 to -1 -Avoid delirium -SAT trials when appropriate -prop d/c due to bradycardia CV: sp STEMI, h/o HTN; SVT/afib -Cardiology consulted, appreciate recommendations -Per cardiology patient will be medically treated -Echocardiogram shows LVEF 65 to 70%, mild LVH-> see report for details -Aspirin and plavix held due to bleeding -Lipitor -Blood pressure monitor per protocol -on cardizem now -MAP goal 65 -pressors as needed RESP: Acute hypoxic respiratory failure due to [id number] -Patient was intubated 12/08 -Wean mechanical ventilation as tolerated see RT notes for titration sat goal .88\ PEEP to 12 -VAP bundle -trend ABG and chest xray GI: GIB; protein charo malnutrition -nutrition consult -TF -GI consulted, patient recommendations (signed off 12/12) -IV PPI -Bowel regimen: [place] : Urinary retention; hyperK -Carpenter placed urinary retention -Strict intake and output -Avoid nephrotoxic medication -Trend creatinine -hyperK this AM medically treateed -afternoon BMP ordered Heme: Anemia, brachial vein DVT, GIB, thrombocytopenia; covid coagulopathy -Guaiac positive stool, remote history of GI bleed (2016) -GI/vascular/hem/onc consulted, appreciate recommendations -Trend H&H -Hemoglobin on admission 8.9 -Transfuse as needed for hgb<7 -Patient was on heparin drip was discontinued due to GI bleed -SCDs to bilateral lower extremities while in bed -Per vascular surgery- When the patient is able to tolerate anticoagulation would recommend restarting a low-dose heparin drip to prevent propagation of the DVT. -PE: Left and right radial pulse palpated; Bilateral DP and PT palpable, B hands cold with discolored thumb/index and middle fingers, B feet cold wioth discolored toes -transfusing per heme -follow CBC and coags -HIT pending ID: COVID-19 pneumonia, leukocytosis -Admits to known exposure -Presented at outside facility ([facility]) with Covid symptom complaints, CT angio chest bilateral ground glass opacities but no PE, consistent with Covid -COVID-19 PCR positive -Zinc/vitamin D/vitamin C -ID following -steroids per ID -S/p remdesivir x5 days, s/p Actemra -Per ID: Continue cefepime and vancomycin for 5 days (12/08 through 12/13) -Contact/droplet precautions -trend temp and WBC curve -follow culture data ENDO: DM2; hyperglycemia -SSI PRN -Scheduled Lantus (titrate as needed) -persistent hyperglycemia despite escalating insulin doses steroids to complete 12/16 hopefully this will improve blood glucose avoid hypoglycemia -HgbA1C 9.5 The high probability of a clinically significant, sudden or life threatening deterioration of the [pulmonary] system(s) required my full and direct attention, intervention and personal management. The aggregate critical care time was [60] minutes. This time is in addition to time spent performing reported procedures but includes the following: [x] Data Review and interpretation [x] Patient assessment and monitoring of vital signs [x] Documentation [x] Medication orders and management Disposition Plan: icu Total Time Spent with Patient (Minutes): 60 History Interval history: 65-year-old -Surinamese female with history of hypertension, diabetes, and GI bleed who presents [facility] ED with complaints of shortness of breath, loss of taste and smell, malaise, fatigue and weakness. Of note this is a [facility] patient and [facility] has agreed to the admission. Patient presented to her local [facility] clinic yesterday evening with complaints of Covid symptoms x6 days. CT angio chest done at [facility] revealed extensive irregular bilateral groundglass opacities, and patient was referred to ED for further evaluation and treatment. Admits to known exposure, states that her friend whom she was in close contact with for several days recently tested positive for Covid. Endorses mild generalized headache, chest tightening, diarrhea, body aches, loss of smell and taste, and shortness of breath. 12/03: COVID-19 test is positive patient is high flow in progress 40liters/100%, will obtain pulmonary consultation. Will adjust glargine for better insulin coverage. Continue remdesivir and Solu-Medrol. Will monitor progression. Encourage prone positioning. We will give a dose of Lasix today. Would like to go to full dose anticoagulation but patient's anemia is precluding And also patient with noted positive stool and remote history of GI bleed in 2016 if no worsening renal function with the Lasix given today will consider CTA in the morning if patient is not improving 12/04: Patient seen and examined, considering worsening hypoxia and stable renal function will order CTA to rule out pulmonary embolism. Will give one-time full dose anticoagulation and continue the prophylactic dose as being careful due to history of GI bleed. And noted anemia. I discussed with the director of catering patient will transfer to [facility]. For now continue steroid therapy will give additional dose of Lasix today. Blood sugar is better controlled. Continue steroids and remdesivir. Patient also Getting Actmera also. Patient was able to prone today. 12/05: Patient s/p Actemra. Continue supportive care she is prone. She continues on steroids and remdesivir. We will give additional Lasix today and monitor renal function in a.m. She remains on high flow and nonrebreather mask/sign of the severity of her hypoxia 12/07: Patient remains on High flow, desaturating despite being on 100% highflow and NRBM, encourage to go back on BiPAP, she protested but now willing with improvement back to 89%. Patient is now on heparin drip, will obtain Chest xray. prongnosis -guarded 12/08: Patient still with hypoxic respiratory failure, worsening symptoms, EKG done concerning for inferior wall CA, STAT Troponin still pending. Discussed with the pulmonary doctor and also with the immigration services officer. Patient due to worsening symptoms is unable to go to the cathlab as she is not stable due to significant hypoxic. The patient again denies any chest pain, BUT WONDER IF this is secondary to the ongoing Heparin drip. Will start on full dose Plavix, Low dose ASA, BB if tolerating. Transfer to the ICU. Patient is s.p Remdesivir and Actmera continue Steroids and Heparin drip. Plan discussed with the patient in detail Noted with Hypoglycemia, will adjust insulin Need to monitor Nutritional status Very guarded prognosis 12/09 no acute events overnight 12/10: LARISA, heparin gtt turned off d/t bleeding 12/11: Patient is anemic today and required transfusion of PRBC x1 which was ordered. Vascular surgery was consulted for evaluation of right radial artery. Patient's heparin drip was discontinued due to mouth/nose. venous US ordered and PT/INR/CBC and fibrinogen were ordered 12/12: brachial vein DVT shown on US. Pt now has no dopplarable or papable pulse on right wrist (brachial heard on Doppler). Vascular surgery is aware. 12/13: PPP papable now, hand remain cold and feet are warmer. Started n arg atroban and received cryo - heme following- transfused per recs 12-15 hyperkalemia today- medically treated; peristent hyperglycemia despite escalating insulin doses (steriods to be d/c 9-1; which may help) Disposition Plan: icu Total Time Spent with Patient (Minutes): 60 History Interval history: no acute events Hospitalist Physical - Constitutional Vitals: Temp Pulse Resp BP Pulse Ox 97.9 F 78 24 112/43 100 12/15/20 09:29 12/15/20 10:00 12/15/20 10:00 12/15/20 10:00 12/15/20 10:00 General appearance: Present: no acute distress, other (Intubated) - EENT Eyes: Present: PERRL, EOM intact ENT: hearing intact - Neck Neck: Present: supple - Respiratory Respiratory effort: normal - Cardiovascular Rhythm: regular Heart Sounds: Present: S1 & S2 - Extremities Extremities: no ischemia - Abdominal General gastrointestinal: soft - Integumentary Integumentary: Present: clear - Psychiatric Psychiatric: other - Neurologic Neurologic: other - Allied Health Allied health notes reviewed: nursing, social work, case management HEART Score - HEART Score Troponin: Troponin T 0.487 ng/mL (0.00-0.029) H* D 12/09/20 13:08 Results - Labs CBC & Chem 7: 12/15/20 02:15 12/15/20 05:10 Labs: Laboratory Last Values WBC 19.4 K/mm3 (4.5-11.0) H 12/15/20 02:15 RBC 2.76 M/mm3 (3.65-5.03) L 12/15/20 02:15 Hgb 7.7 gm/dl (10.1-14.3) L 12/15/20 02:15 Hct 23.6 % (30.3-42.9) L 12/15/20 02:15 MCV 86 fl (79-97) 12/15/20 02:15 MCH 28 pg (28-32) 12/15/20 02:15 MCHC 33 % (30-34) 12/15/20 02:15 RDW 18.0 % (13.2-15.2) H 12/15/20 02:15 Plt Count 31 K/mm3 (140-440) L 12/15/20 02:15 Lymph % (Auto) 6.7 % (13.4-35.0) L 12/02/20 03:58 Porter % (Auto) 5.4 % (0.0-7.3) 12/02/20 03:58 Eos % (Auto) 0.0 % (0.0-4.3) 12/02/20 03:58 Baso % (Auto) 0.2 % (0.0-1.8) 12/02/20 03:58 Lymph # (Auto) 0.3 K/mm3 (1.2-5.4) L 12/02/20 03:58 Porter # (Auto) 0.3 K/mm3 (0.0-0.8) 12/02/20 03:58 Eos # (Auto) 0.0 K/mm3 (0.0-0.4) 12/02/20 03:58 Baso # (Auto) 0.0 K/mm3 (0.0-0.1) 12/02/20 03:58 Add Manual Diff Complete 12/10/20 02:39 Total Counted 100 12/10/20 02:39 Seg Neutrophils % Cooling Room Attendant 12/10/20 02:39 Seg Neuts % (Manual) 95.0 % (40.0-70.0) H 12/10/20 02:39 Band Neutrophils % 2.0 % 12/10/20 02:39 Lymphocytes % (Manual) 1.0 % (13.4-35.0) L 12/10/20 02:39 Monocytes % (Manual) 2.0 % (0.0-7.3) 12/10/20 02:39 Eosinophils % (Manual) 1.0 % (0.0-4.3) 12/08/20 20:15 Nucleated RBC % 3.0 % (0.0-0.9) H 12/10/20 02:39 Seg Neutrophils # 4.4 K/mm3 (1.8-7.7) 12/02/20 03:58 Seg Neutrophils # Man 18.2 K/mm3 (1.8-7.7) H 12/10/20 02:39 Band Neutrophils # 0.4 K/mm3 12/10/20 02:39 Lymphocytes # (Manual) 0.2 K/mm3 (1.2-5.4) L 12/10/20 02:39 Abs React Lymphs (Man) 0.0 K/mm3 12/10/20 02:39 Monocytes # (Manual) 0.4 K/mm3 (0.0-0.8) 12/10/20 02:39 Eosinophils # (Manual) 0.0 K/mm3 (0.0-0.4) 12/10/20 02:39 Basophils # (Manual) 0.0 K/mm3 (0.0-0.1) 12/10/20 02:39 Metamyelocytes # 0.0 K/mm3 12/10/20 02:39 Myelocytes # 0.0 K/mm3 12/10/20 02:39 Promyelocytes # 0.0 K/mm3 12/10/20 02:39 Blast Cells # 0.0 K/mm3 12/10/20 02:39 WBC Morphology Not Reportable 12/10/20 02:39 Hypersegmented Neuts Not Reportable 12/10/20 02:39 Hyposegmented Neuts Not Reportable 12/10/20 02:39 Hypogranular Neuts Not Reportable 12/10/20 02:39 Smudge Cells Not Reportable 12/10/20 02:39 Toxic Granulation Not Reportable 12/10/20 02:39 Toxic Vacuolation Not Reportable 12/10/20 02:39 Dohle Bodies Not Reportable 12/10/20 02:39 Pelger-Huet Anomaly Not Reportable 12/10/20 02:39 Minna Rods Not Reportable 12/10/20 02:39 Platelet Estimate Consistent w auto 12/10/20 02:39 Clumped Platelets Not Reportable 12/10/20 02:39 Plt Clumps, EDTA Not Reportable 12/10/20 02:39 Large Platelets Few 12/10/20 02:39 Giant Platelets Not Reportable 12/10/20 02:39 Platelet Satelliting Not Reportable 12/10/20 02:39 Plt Morphology Comment Not Reportable 12/10/20 02:39 RBC Morphology Not Reportable 12/10/20 02:39 Dimorphic RBCs Not Reportable 12/10/20 02:39 Polychromasia Few 12/10/20 02:39 Hypochromasia 1+ 12/10/20 02:39 Poikilocytosis Not Reportable 12/10/20 02:39 Anisocytosis 1+ 12/10/20 02:39 Microcytosis Few 12/10/20 02:39 Macrocytosis Not Reportable 12/10/20 02:39 Spherocytes Not Reportable 12/10/20 02:39 Pappenheimer Bodies Not Reportable 12/10/20 02:39 Sickle Cells Not Reportable 12/10/20 02:39 Target Cells Not Reportable 12/10/20 02:39 Tear Drop Cells Few 12/10/20 02:39 Ovalocytes Not Reportable 12/10/20 02:39 Helmet Cells Not Reportable 12/10/20 02:39 [place] Bodies Not Reportable 12/10/20 02:39 [place] Rings Not Reportable 12/10/20 02:39 Goyo Cells Not Reportable 12/10/20 02:39 Bite Cells Not Reportable 12/10/20 02:39 Crenated Cell Not Reportable 12/10/20 02:39 Elliptocytes Not Reportable 12/10/20 02:39 Acanthocytes (Spur) Not Reportable 12/10/20 02:39 Rouleaux Not Reportable 12/10/20 02:39 Hemoglobin C Crystals Not Reportable 12/10/20 02:39 Schistocytes Not Reportable 12/10/20 02:39 Malaria parasites Not Reportable 12/10/20 02:39 Po Bodies Not Reportable 12/10/20 02:39 Hem Pathologist Commnt No 12/10/20 02:39 PT 17.8 Sec. (12.2-14.9) H 12/15/20 05:10 INR 1.40 (0.87-1.13) H 12/15/20 05:10 APTT 29.2 Sec. (24.2-36.6) 12/11/20 15:45 Fibrinogen 143 mg/dl (211-480) L* 12/15/20 05:10 D-Dimer > 41379 ng/mlDDU (0-234) H 12/14/20 06:55 Heparin Anti-Xa Level < 0.10 U.I./ml (0.3-0.7) L 12/11/20 15:45 ABG pH 7.313 (7.320-7.450) L 12/15/20 03:05 POC ABG pCO2 44.5 mmHg (32.0-48.0) 12/15/20 03:05 ABG pCO2 Not Reportable 12/14/20 06:25 POC ABG pO2 66.7 mmHg (83-108) L 12/15/20 03:05 ABG pO2 Not Reportable 12/14/20 06:25 POC ABG HCO3 22.1 12/15/20 03:05 ABG HCO3 Not Reportable 12/14/20 06:25 ABG O2 Saturation 91.2 (0-100) 12/15/20 03:05 ABG O2 Content 6.2 (0.0-44) 12/14/20 06:25 POC ABG Base Excess -3.9 12/15/20 03:05 ABG Base Excess Not Reportable 12/14/20 06:25 ABG Hemoglobin 6.9 (12.0-17.5) L 12/15/20 03:05 ABG Oxyhemoglobin 89.3 (94-98) L 12/15/20 03:05 ABG Carboxyhemoglobin 2.3 % (0.0-5.0) 12/14/20 06:25 ABG Methemoglobin 0.3 (0.0-1.5) 12/15/20 03:05 ABG Sodium 144.2 mmol/L (136.0-145.0) 12/15/20 03:05 ABG Potassium 6.3 mmol/L (3.40-4.50) H 12/15/20 03:05 ABG Chloride 117.0 mmol/L (98-107) H 12/15/20 03:05 ABG Glucose 693 mg/dL (65-95) H 12/15/20 03:05 Oxyhemoglobin 73.5 % (95.0-99.0) L 12/14/20 06:25 Carboxyhemoglobin 1.8 (0.5-1.5) H 12/15/20 03:05 FiO2 10 % 12/14/20 06:25 FiO2 % 100.0 12/15/20 03:05 Sodium 147 mmol/L (137-145) H 12/15/20 05:10 Potassium 6.2 mmol/L (3.6-5.0) H* 12/15/20 05:10 Chloride 116.7 mmol/L (98-107) H 12/15/20 05:10 Carbon Dioxide 24 mmol/L (22-30) 12/15/20 05:10 Anion Gap 13 mmol/L 12/15/20 05:10 BUN 82 mg/dL (7-17) H 12/15/20 05:10 Creatinine 1.3 mg/dL (0.6-1.2) H 12/15/20 05:10 Estimated GFR 49 ml/min 12/15/20 05:10 BUN/Creatinine Ratio 63 % 12/15/20 05:10 Glucose 661 mg/dL (65-100) H* 12/15/20 05:10 POC Glucose 547 mg/dL (70-105) H 12/15/20 11:37 Hemoglobin A1c 9.5 % (4-6) H 12/02/20 06:15 Lactic Acid 1.80 mmol/L (0.7-2.0) 12/15/20 02:15 Calcium 8.2 mg/dL (8.4-10.2) L 12/15/20 05:10 Phosphorus 3.00 mg/dL (2.5-4.5) 12/13/20 06:55 Magnesium 3.10 mg/dL (1.7-2.3) H 12/13/20 06:55 Ferritin 398.2 ng/mL (10.0-200.0) H 12/14/20 06:55 Total Bilirubin 0.50 mg/dL (0.1-1.2) 12/15/20 05:10 AST 53 units/L (5-40) H 12/15/20 05:10 ALT 12 units/L (7-56) 12/15/20 05:10 Alkaline Phosphatase 298 units/L (35-129) H 12/15/20 05:10 Lactate Dehydrogenase 2448 units/L (91-180) H 12/14/20 06:55 Total Creatine Kinase 521 units/L (30-135) H 12/08/20 20:15 CK-MB (CK-2) 31.5 ng/mL (0.0-4.0) H 12/08/20 20:15 CK-MB (CK-2) Rel Index 6.0 (0-4) H 12/08/20 20:15 Troponin T 0.487 ng/mL (0.00-0.029) H* D 12/09/20 13:08 C-Reactive Protein 9.10 mg/dL (0.00-1.30) H 12/14/20 06:55 NT-Pro-B Natriuret Pep 2396 pg/mL (0-900) H 12/09/20 13:08 Total Protein 4.2 g/dL (6.3-8.2) L 12/15/20 05:10 Albumin 2.1 g/dL (3.9-5) L 12/15/20 05:10 Albumin/Globulin Ratio 1.0 % 12/15/20 05:10 Triglycerides 327 mg/dL (2-149) H 12/14/20 08:38 Cholesterol 88 mg/dL (50-199) 12/08/20 13:25 LDL Cholesterol Direct 30 mg/dL (50-130) L 12/08/20 13:25 HDL Cholesterol 35 mg/dL (40-59) L 12/08/20 13:25 Cholesterol/HDL Ratio 2.51 % 12/08/20 13:25 Procalcitonin 1.18 ng/mL (<0.15) 12/02/20 03:58 Arterial Blood Glucose 693 mg/dL (65-95) H 12/15/20 03:05 Arterial Blood Ionized Calcium 4.9 mg/dL (4.6-5.3) 12/15/20 03:05 Coronavirus (PCR) Positive (Negative) A 12/02/20 08:15 Blood Type O POSITIVE 12/14/20 14:20 Antibody Screen Negative 12/14/20 14:20 Crossmatch See Detail 12/14/20 14:20 Carpenter/IV: Voiding Method Indwelling Catheter Active Medications - Current Medications Current Medications: Generic Name Dose Route Start Last Admin Trade Name Freq PRN Reason Stop Dose Admin Acetaminophen 650 mg 12/02/20 05:09 12/12/20 18:19 Acetaminophen 325 Mg Tab PO 650 mg Q4H PRN Administration Pain MILD(1-3)/Fever >100.5/LARA Albuterol 2.5 mg 08/18/21 05:09 Albuterol 2.5 Mg/3 Ml Nebu IH Q3HRT PRN Shortness Of Breath Lipase/Protease/Amylase 1 each 12/09/20 10:32 Lipase 10,500/Protease 25,000/Amylase 43,750 (Units) Dr Cap FEEDTUBE PRN PRN For Clogged Feeding Tube Ascorbic Acid 500 mg 12/03/20 22:00 12/15/20 09:47 Ascorbic Acid 500 Mg Tab PO 500 mg BID AZAEL Administration Aspirin 81 mg 12/08/20 13:00 12/15/20 09:46 Aspirin 81 Mg Tab Chew PO 81 mg QDAY AZAEL Administration Atorvastatin Calcium 40 mg 12/08/20 22:00 12/14/20 22:13 Atorvastatin 40 Mg Tab PO 40 mg QHS AZAEL Administration Cholecalciferol 5,000 unit 12/02/20 10:00 12/15/20 09:46 Cholecalciferol (Vit D3) 5,000 Unit Tab PO 5,000 unit DAILY AZAEL Administration Clopidogrel Bisulfate 75 mg 12/09/20 10:00 12/15/20 09:47 Clopidogrel 75 Mg Tab PO 75 mg QDAY AZAEL Administration Dextrose 50 ml 12/02/20 05:09 12/05/20 08:09 Dextrose 50% In Water (25gm) 50 Ml Syringe IV 50 ml Q30MIN PRN Administration Hypoglycemia Protocol Docusate Sodium 100 mg 12/14/20 10:00 12/15/20 09:46 Docusate Sodium 100 Mg/10 Ml Oral Liqd FEEDTUBE 100 mg BID AZAEL Administration Fentanyl 50 mcg 12/08/20 15:13 Fentanyl 100 Mcg/2 Ml Inj IV Q10MIN PRN ANALGESIA Hydrophilic Ointment 1 applic 12/08/20 15:56 Lip Therapy Vaseline TP Q2HR PRN Dry Lips Fentanyl Citrate 2,000 mcg in 100 mls @ 3.243 mls/hr 12/08/20 16:00 12/15/20 05:40 Fentanyl Drip Premix IV 4 mcg/kg/hr TITR AZAEL 12.973 mls/hr Administration Protocol 1 MCG/KG/HR NORepinephrine/NS 8 MG-250 ML 8 mg in 250 mls @ 3.75 mls/hr 12/08/20 16:00 12/15/20 09:59 Norepinephrine/Ns 8 Mg-250 Ml (Double Conc) IV 8 mcg/min TITRATE AZAEL 15 mls/hr Administration Protocol 2 MCG/MIN Propofol 1,000 mg in 100 mls @ 1.946 mls/hr 12/08/20 17:00 12/15/20 05:39 Diprivan 10 Mg/Ml IV 35 mcg/kg/min TITR AZAEL 13.621 mls/hr Administration Protocol 5 MCG/KG/MIN Sodium Chloride 500 mls @ 1 mls/hr 12/08/20 17:19 12/13/20 14:10 Nacl 0.9% 500 Ml IV 250 mls/hr DIRECT PRN Administration ARTERIAL LINE FLUSH Vasopressin 20 unit/ Sodium 101 mls @ 9.09 mls/hr 12/10/20 04:00 12/14/20 17:08 Chloride IV 0.03 units/min TITR AZAEL 9.09 mls/hr Administration Protocol 0.03 UNITS/MIN Diltiazem HCl 100 mg in 100 mls @ 5 mls/hr 12/14/20 11:00 12/15/20 05:44 Cardizem/D5w 100mg/100ml IV 10 mg/hr TITR AZAEL 10 mls/hr Administration Protocol 5 MG/HR Insulin Glargine 25 units 12/14/20 18:00 12/15/20 09:45 Insulin Glargine 100 Units/Ml SUB-Q 25 units BID AZAEL Administration Insulin Human Lispro 0 unit 12/14/20 18:00 12/15/20 06:26 Insulin Lispro 100 Unit/Ml SUB-Q 10 unit Q4H AZAEL Administration Protocol Methylprednisolone Sodium Succinate 60 mg 12/13/20 11:00 12/14/20 22:13 Methylprednisolone Sod Succinate 125 Mg/2 Ml Inj IV 12/16/20 10:59 60 mg Q12H AZAEL Administration Metoclopramide HCl 5 mg 12/11/20 12:00 12/15/20 05:46 Metoclopramide 10 Mg/2 Ml Inj IV 5 mg Q6H AZAEL Administration Multi-Ingred Cream/Lotion/Oil/Oint 1 applic 12/08/20 15:56 Mineral Oil/Petrolatum, White Ophth Oint 3.5 Gm OU Q4HR PRN Dry Eye(s) Ondansetron HCl 4 mg 12/02/20 05:09 Ondansetron 4 Mg/2 Ml Inj IV Q6H PRN Nausea And Vomiting Pantoprazole Sodium 40 mg 12/13/20 10:00 12/15/20 09:46 Pantoprazole 40 Mg Inj IV 40 mg BID AZAEL Administration Senna/Docusate Sodium 1 tab 12/08/20 22:00 12/15/20 09:46 Sennosides/Docusate Sodium 8.6/50 Mg Tab FEEDTUBE 1 tab BID AZAEL Administration Simple Syrup 30 ml 12/09/20 10:32 Simple Syrup 15 Ml FEEDTUBE PRN PRN Hypoglycemia Sodium Bicarbonate 325 mg 12/09/20 10:32 Sodium Bicarbonate 325 Mg Tab FEEDTUBE PRN PRN For Clogged Feeding Tube Sodium Chloride 10 ml 12/02/20 10:00 12/15/20 09:48 Sodium Chloride 0.9% 10 Ml Flush Syringe IV 10 ml BID AZAEL Administration Sodium Chloride 10 ml 12/02/20 05:09 Sodium Chloride 0.9% 10 Ml Flush Syringe IV PRN PRN LINE FLUSH Zinc Sulfate 220 mg 12/02/20 10:00 12/15/20 09:47 Zinc Sulfate 220 Mg Cap PO 220 mg QDAY AZAEL Administration Nutrition/Malnutrition Assess - Dietary Evaluation Nutrition/Malnutrition Findings: Nutrition Notes Start: 12/03/20 10:33 Freq: Status: Active Protocol: Document 12/14/20 10:32 (Rec: 12/14/20 10:42 [id number]) Nutrition Notes Initial or Follow up Reassessment Current Diagnosis Respiratory Failure Other Pertinent Diagnosis Covid +, Hyperglycemia Current Diet Vital AF at 45 ml/hr Labs/Tests Na 147 K 5.3 BUN 55 BG 368 Pertinent Medications Propofol at 11.676 ml/hr Height 4 ft 11.84 in Weight 64.86 kg [place] Body Weight (kg) 45.09 BMI 28.0 Weight Status Overweight Subjective/Other Information TF running at 45ml/hr (goal rate) and pt tolerating. Percent of energy/protein needs met: 98%/100% Burn Absent Trauma Absent Current % PO Negligible Minimum of two criteria No #1 Nutrition Diagnosis Inadequate oral intake Diagnosis Progress(for reassessment Continues documentation) Is patient on ventilator? Yes Is Patient Ambulatory and/or Out of Bed No [facility] 1328.892 Calculation Used for Recommendations [facility] Additional Notes Pro needs 1.2-2g/k-130g/ day Fluid needs 1ml/kcal Nutrition Intervention Change Diet Order: continue Nutrition Support: Vital AF 1.2 at 45 ml/hr. Flush 75 ml q4h or per MD. Kcal 1,296 Protein (gm) 81 Fluid (mL) 876 Goal #1 Meet at least 75% of protein and energy needs via TF Anticipated Discharge Needs: Unable to determine at this time Follow-Up By: 12/17/20 Additional Comments F/u: TF tolerance and renal funciton - Attestation Statement I have reviewed and agreed w/ Malnutrition eval & tx plan: Yes
[2020-12-15] MEDS ORDERED: MIDAZOLAM 2 MG/2 ML INJ IV PRN (12:38)
[2020-12-15] MEDS ORDERED: MIDAZOLAM 100 MG in SODIUM CHLORIDE 0.9% 80 ML IV SCH (13:00)
[2020-12-15] MEDS ORDERED: SODIUM POLYSTYRENE 15 GM/60 ML ORAL LIQD ONE (13:30)
[2020-12-15] MEDS: methylPREDNISolone Sod Succinate 125 MG/2 ML INJ IV SCH (13:34)
--- NOTE | 2020-12-15 14:39 | Progress Note ---
Assessment and Plan Acute hypoxemic respiratory failure COVID-19 infection STEMI Bilateral pneumonia Acute respiratory distress syndrome DM II Hypertension Elevated serum inflammatory markers to include LDH, ferritin and D-dimers Anemia - discontinued Propofol re: shira - stopped Cardizem - add Versed for RASS -2 to -3 - reduced peep to 12 - will accept O2 sats > 88% to avoid increasing peep and oxygen toxicity at higher FiO2's - get lactic acid level and trend (WNL today) - nephrology consult placed - s/p Calcium, Kayexalate, bicarbonate and Insulin - follow HIT assay (pending) - appreciate vascular surgery input - supportive transfusions for serum Hb < 7.0 - continue to wean vasopressors for target MAP > 65 mmHg - aggressive medical therapy for STEMI otherwise per cardiology - continue daily SAT's & SBT assessment as tolerated - VAP bundle addressed - continue care as below otherwise; - continue bronchodilators with pulmonary hygiene per RT - continue accuchecks with glycemic control per SSI (While critically ill target blood glucose of 140-180 mg/dL; avoid hypoglycemia) - avoid nephrotoxins, renally dose all medications - continue to avoid benzodiazepine's, reduce the possibility of delirium - completed Anti-infective's per ID rec's - prn analgesia per pain score - Maintenance of sleep-wake cycle, avoid delirium - G.I. & VTE prophylaxis - PT/OT/ROM exercises - mobility protocols for pressure ulcer prophylaxis - Monitor hemodynamics closely - continue other care per attending / other consultants COVID SPECIFIC INTERVENTIONS - Remdesivir as per ID/Pulmonary developed protocols (receiving) - continue systemic steroids for severe COVID-19 infection (Decadron) - follow repeat COVID tests results - zinc and vitamin C supplementation - Monitor inflammatory markers per facility protocol - ferritin, Ddimer, CRP - therapeutic anticoagulation per system Protocol based on d-dimer and clinical considerations (VTE Prophylaxis) - Continue contact and airborne isolation .... Re-evaluate in am & prn CONDITION: CRITICAL PROGNOSIS: GRAVE CODE STATUS: FULL CODE The high probability of a clinically significant, sudden or life-threatening deterioration of the [respiratory, cardiovascular & neurologic] system(s) required my full and direct attention, intervention and personal management. The aggregate critical care time was [32] minutes without overlap. Time includes spent on; [x] Data Review and interpretation [x] Patient assessment and monitoring of vital signs [x] Documentation [x] Medication orders and management Subjective Date of service: 12/15/20 Principal diagnosis: Ac hypoxemic resp failure; COVID-19 infection; Pneumonia; ARDS; DM II; HTN Interval history: Patient is seen today for: Acute hypoxemic respiratory failure; COVID-19 infection; Pneumonia; ARDS; DM II; HTN Seen and examined at bedside; 24hour events reviewed; nursing and respiratory care staff consulted; no adverse overnight events reported to me; resting in bed; remains on MVS; remains with digital ischemia; FiO2 bumped to 100% overnight; peep at 14; sedated but delirious during SAT's; bradycardic now on cardizem drip Objective Vital Signs - 12hr 12/15/20 12/15/20 12/15/20 02:45 03:00 03:16 Temperature Pulse Rate 68 72 71 Pulse Rate [ From Monitor] Respiratory 12 12 20 Rate Blood Pressure 107/44 114/34 123/27 O2 Sat by Pulse 97 97 100 Oximetry 12/15/20 12/15/20 12/15/20 03:30 03:42 03:45 Temperature Pulse Rate 69 68 68 Pulse Rate [ From Monitor] Respiratory 18 18 Rate Blood Pressure 110/32 92/26 102/35 O2 Sat by Pulse 100 99 99 Oximetry 12/15/20 12/15/20 12/15/20 03:57 04:00 04:04 Temperature 98.8 F Pulse Rate 69 72 Pulse Rate [ 141 H From Monitor] Respiratory 19 Rate Blood Pressure 93/36 O2 Sat by Pulse 98 Oximetry 12/15/20 12/15/20 12/15/20 04:15 04:30 04:46 Temperature Pulse Rate 68 67 70 Pulse Rate [ From Monitor] Respiratory 19 10 L 14 Rate Blood Pressure 103/34 95/35 95/42 O2 Sat by Pulse 98 94 95 Oximetry 12/15/20 12/15/20 12/15/20 05:00 05:16 05:30 Temperature Pulse Rate 69 62 71 Pulse Rate [ From Monitor] Respiratory 14 17 17 Rate Blood Pressure 95/35 120/36 156/48 O2 Sat by Pulse 100 94 95 Oximetry 12/15/20 12/15/20 12/15/20 05:46 06:00 06:15 Temperature Pulse Rate 75 70 82 Pulse Rate [ From Monitor] Respiratory 18 16 20 Rate Blood Pressure 117/54 136/58 118/40 O2 Sat by Pulse 93 100 100 Oximetry 12/15/20 12/15/20 12/15/20 06:30 06:45 07:00 Temperature Pulse Rate 70 82 81 Pulse Rate [ From Monitor] Respiratory 14 14 15 Rate Blood Pressure 112/52 111/44 109/43 O2 Sat by Pulse 100 100 100 Oximetry 12/15/20 12/15/20 12/15/20 07:16 07:30 07:45 Temperature Pulse Rate 85 92 H 90 Pulse Rate [ From Monitor] Respiratory 13 15 24 Rate Blood Pressure 112/37 115/56 99/37 O2 Sat by Pulse 99 100 100 Oximetry 12/15/20 12/15/20 12/15/20 08:00 08:15 08:30 Temperature Pulse Rate 86 87 92 H Pulse Rate [ From Monitor] Respiratory 21 24 20 Rate Blood Pressure 107/45 104/41 90/38 O2 Sat by Pulse 100 100 100 Oximetry 12/15/20 12/15/20 12/15/20 08:40 08:46 09:00 Temperature Pulse Rate 79 81 83 Pulse Rate [ From Monitor] Respiratory 21 15 Rate Blood Pressure 90/38 105/36 O2 Sat by Pulse 100 100 100 Oximetry 12/15/20 12/15/20 12/15/20 09:15 09:29 09:30 Temperature 97.9 F Pulse Rate 83 82 Pulse Rate [ From Monitor] Respiratory 22 24 Rate Blood Pressure 104/37 94/34 O2 Sat by Pulse 100 100 Oximetry 12/15/20 12/15/20 12/15/20 09:45 10:00 10:15 Temperature Pulse Rate 75 78 70 Pulse Rate [ From Monitor] Respiratory 16 24 18 Rate Blood Pressure 103/46 112/43 112/34 O2 Sat by Pulse 100 100 100 Oximetry 12/15/20 12/15/20 12/15/20 10:30 10:45 11:00 Temperature Pulse Rate 69 75 71 Pulse Rate [ From Monitor] Respiratory 24 21 22 Rate Blood Pressure 97/33 106/38 97/32 O2 Sat by Pulse 100 100 100 Oximetry 12/15/20 12/15/20 12/15/20 11:15 11:30 11:45 Temperature Pulse Rate 73 74 73 Pulse Rate [ From Monitor] Respiratory 24 20 24 Rate Blood Pressure 99/32 105/43 99/36 O2 Sat by Pulse 100 100 100 Oximetry 12/15/20 12/15/20 12/15/20 12:00 12:15 12:30 Temperature Pulse Rate 73 73 77 Pulse Rate [ From Monitor] Respiratory 21 24 24 Rate Blood Pressure 113/38 101/37 110/43 O2 Sat by Pulse 100 100 100 Oximetry 12/15/20 12/15/20 12/15/20 12:41 12:45 13:00 Temperature Pulse Rate 76 74 77 Pulse Rate [ From Monitor] Respiratory 20 17 Rate Blood Pressure 110/43 118/40 119/43 O2 Sat by Pulse 100 100 100 Oximetry 12/15/20 12/15/20 12/15/20 13:16 13:30 13:45 Temperature Pulse Rate 81 79 83 Pulse Rate [ From Monitor] Respiratory 25 H 25 H 24 Rate Blood Pressure 99/33 97/36 100/38 O2 Sat by Pulse 49 L 100 96 Oximetry 12/15/20 12/15/20 14:00 14:15 Temperature Pulse Rate 82 79 Pulse Rate [ From Monitor] Respiratory 24 24 Rate Blood Pressure 105/34 106/35 O2 Sat by Pulse 99 98 Oximetry Constitutional: appears uncomfortable, other (elderly female with mildly increased respiratory effort at rest on MVS) Eyes: non-icteric ENT: oropharynx moist, other (ETT 23 cm JENNIFER) Neck: supple, no lymphadenopathy, no JVD Effort: mildly labored Ascultation: Bilateral: rhonchi Percussion: Bilateral: not dull Cardiovascular: regular rate and rhythm Gastrointestinal: normoactive bowel sounds, soft, non-tender, non-distended Integumentary: normal Extremities: no cyanosis, no edema, pulses normal, other (+ digital ischemia and cyanosis to hands and feet) Neurologic: non-focal exam (grossly), pupils equal and round, unable to assess, other (sedated) Psychiatric: other (unable to assess re: AMS) CBC and BMP: 12/15/20 02:15 12/15/20 05:10 ABG, PT/INR, D-dimer: ABG ABG pH 7.313 (7.320-7.450) L 12/15/20 03:05 POC ABG pCO2 44.5 mmHg (32.0-48.0) 12/15/20 03:05 ABG pCO2 Not Reportable 12/14/20 06:25 POC ABG pO2 66.7 mmHg (83-108) L 12/15/20 03:05 ABG pO2 Not Reportable 12/14/20 06:25 POC ABG HCO3 22.1 12/15/20 03:05 ABG O2 Saturation 91.2 (0-100) 12/15/20 03:05 PT/INR, D-dimer PT 17.8 Sec. (12.2-14.9) H 12/15/20 05:10 INR 1.40 (0.87-1.13) H 12/15/20 05:10 D-Dimer > 25418 ng/mlDDU (0-234) H 12/14/20 06:55 Abnormal lab findings: Abnormal Labs 12/02/20 12/02/20 12/02/20 03:58 03:58 03:58 WBC RBC 3.57 L Hgb 8.9 L Hct 27.2 L MCV 76 L MCH 25 L RDW 17.6 H Plt Count Lymph % (Auto) 6.7 L Lymph # (Auto) 0.3 L Seg Neutrophils % 87.7 H Seg Neuts % (Manual) Lymphocytes % (Manual) Nucleated RBC % Seg Neutrophils # Man Lymphocytes # (Manual) PT INR APTT Fibrinogen D-Dimer 1559.33 H Heparin Anti-Xa Level ABG pH POC ABG pCO2 POC ABG pO2 ABG O2 Saturation ABG Hemoglobin ABG Oxyhemoglobin ABG Sodium ABG Potassium ABG Chloride ABG Glucose Oxyhemoglobin Carboxyhemoglobin Sodium 130 L Potassium Chloride 90.0 L Carbon Dioxide BUN 20 H Creatinine Glucose 346 H POC Glucose Hemoglobin A1c Lactic Acid Calcium Phosphorus Magnesium 2.40 H Ferritin AST 43 H Alkaline Phosphatase Lactate Dehydrogenase 582 H Total Creatine Kinase CK-MB (CK-2) CK-MB (CK-2) Rel Index Troponin T C-Reactive Protein 34.20 H NT-Pro-B Natriuret Pep Total Protein Albumin 3.1 L Triglycerides LDL Cholesterol Direct HDL Cholesterol Arterial Blood Glucose Arterial Blood Ionized Calcium Coronavirus (PCR) Crossmatch 12/02/20 12/02/20 12/02/20 03:58 06:15 07:37 WBC RBC Hgb Hct MCV MCH RDW Plt Count Lymph % (Auto) Lymph # (Auto) Seg Neutrophils % Seg Neuts % (Manual) Lymphocytes % (Manual) Nucleated RBC % Seg Neutrophils # Man Lymphocytes # (Manual) PT INR APTT Fibrinogen D-Dimer Heparin Anti-Xa Level ABG pH POC ABG pCO2 POC ABG pO2 ABG O2 Saturation ABG Hemoglobin ABG Oxyhemoglobin ABG Sodium ABG Potassium ABG Chloride ABG Glucose Oxyhemoglobin Carboxyhemoglobin Sodium Potassium Chloride Carbon Dioxide BUN Creatinine Glucose POC Glucose 339 H Hemoglobin A1c 9.5 H Lactic Acid Calcium Phosphorus Magnesium Ferritin 497.6 H AST Alkaline Phosphatase Lactate Dehydrogenase Total Creatine Kinase CK-MB (CK-2) CK-MB (CK-2) Rel Index Troponin T C-Reactive Protein NT-Pro-B Natriuret Pep Total Protein Albumin Triglycerides LDL Cholesterol Direct HDL Cholesterol Arterial Blood Glucose Arterial Blood Ionized Calcium Coronavirus (PCR) Crossmatch 12/02/20 12/02/20 12/02/20 08:15 11:52 13:29 WBC RBC Hgb 9.7 L Hct MCV MCH RDW Plt Count Lymph % (Auto) Lymph # (Auto) Seg Neutrophils % Seg Neuts % (Manual) Lymphocytes % (Manual) Nucleated RBC % Seg Neutrophils # Man Lymphocytes # (Manual) PT INR APTT Fibrinogen D-Dimer Heparin Anti-Xa Level ABG pH POC ABG pCO2 POC ABG pO2 ABG O2 Saturation ABG Hemoglobin ABG Oxyhemoglobin ABG Sodium ABG Potassium ABG Chloride ABG Glucose Oxyhemoglobin Carboxyhemoglobin Sodium Potassium Chloride Carbon Dioxide BUN Creatinine Glucose POC Glucose 305 H Hemoglobin A1c Lactic Acid Calcium Phosphorus Magnesium Ferritin AST Alkaline Phosphatase Lactate Dehydrogenase Total Creatine Kinase CK-MB (CK-2) CK-MB (CK-2) Rel Index Troponin T C-Reactive Protein NT-Pro-B Natriuret Pep Total Protein Albumin Triglycerides LDL Cholesterol Direct HDL Cholesterol Arterial Blood Glucose Arterial Blood Ionized Calcium Coronavirus (PCR) Positive A Crossmatch 12/02/20 12/02/20 12/02/20 16:53 22:39 23:39 WBC RBC Hgb Hct MCV MCH RDW Plt Count Lymph % (Auto) Lymph # (Auto) Seg Neutrophils % Seg Neuts % (Manual) Lymphocytes % (Manual) Nucleated RBC % Seg Neutrophils # Man Lymphocytes # (Manual) PT INR APTT Fibrinogen D-Dimer Heparin Anti-Xa Level ABG pH POC ABG pCO2 POC ABG pO2 ABG O2 Saturation ABG Hemoglobin ABG Oxyhemoglobin ABG Sodium ABG Potassium ABG Chloride ABG Glucose Oxyhemoglobin Carboxyhemoglobin Sodium 131 L Potassium Chloride 93.8 L Carbon Dioxide BUN 22 H Creatinine Glucose 301 H POC Glucose 281 H 290 H Hemoglobin A1c Lactic Acid Calcium Phosphorus Magnesium Ferritin AST Alkaline Phosphatase Lactate Dehydrogenase Total Creatine Kinase CK-MB (CK-2) CK-MB (CK-2) Rel Index Troponin T C-Reactive Protein NT-Pro-B Natriuret Pep Total Protein 6.2 L Albumin 2.8 L Triglycerides LDL Cholesterol Direct HDL Cholesterol Arterial Blood Glucose Arterial Blood Ionized Calcium Coronavirus (PCR) Crossmatch 12/03/20 12/03/20 12/03/20 03:48 03:48 08:59 WBC RBC 3.46 L Hgb 8.6 L Hct 26.5 L MCV 77 L MCH 25 L RDW 18.2 H Plt Count Lymph % (Auto) Lymph # (Auto) Seg Neutrophils % Seg Neuts % (Manual) 93.0 H Lymphocytes % (Manual) 3.0 L Nucleated RBC % Seg Neutrophils # Man Lymphocytes # (Manual) 0.2 L PT INR APTT Fibrinogen D-Dimer Heparin Anti-Xa Level ABG pH POC ABG pCO2 POC ABG pO2 ABG O2 Saturation ABG Hemoglobin ABG Oxyhemoglobin ABG Sodium ABG Potassium ABG Chloride ABG Glucose Oxyhemoglobin Carboxyhemoglobin Sodium 131 L Potassium Chloride 92.5 L Carbon Dioxide BUN 22 H Creatinine Glucose 279 H POC Glucose 258 H Hemoglobin A1c Lactic Acid Calcium 8.2 L Phosphorus Magnesium Ferritin AST Alkaline Phosphatase Lactate Dehydrogenase Total Creatine Kinase CK-MB (CK-2) CK-MB (CK-2) Rel Index Troponin T C-Reactive Protein NT-Pro-B Natriuret Pep Total Protein 5.6 L Albumin 2.8 L Triglycerides LDL Cholesterol Direct HDL Cholesterol Arterial Blood Glucose Arterial Blood Ionized Calcium Coronavirus (PCR) Crossmatch 12/03/20 12/03/20 12/03/20 12:45 15:57 17:01 WBC RBC Hgb Hct MCV MCH RDW Plt Count Lymph % (Auto) Lymph # (Auto) Seg Neutrophils % Seg Neuts % (Manual) Lymphocytes % (Manual) Nucleated RBC % Seg Neutrophils # Man Lymphocytes # (Manual) PT INR APTT Fibrinogen D-Dimer Heparin Anti-Xa Level ABG pH 7.527 H POC ABG pCO2 POC ABG pO2 50.4 L ABG O2 Saturation ABG Hemoglobin ABG Oxyhemoglobin ABG Sodium 129.8 L ABG Potassium ABG Chloride 95.0 L ABG Glucose 394 H Oxyhemoglobin Carboxyhemoglobin Sodium Potassium Chloride Carbon Dioxide BUN Creatinine Glucose POC Glucose 349 H 359 H Hemoglobin A1c Lactic Acid Calcium Phosphorus Magnesium Ferritin AST Alkaline Phosphatase Lactate Dehydrogenase Total Creatine Kinase CK-MB (CK-2) CK-MB (CK-2) Rel Index Troponin T C-Reactive Protein NT-Pro-B Natriuret Pep Total Protein Albumin Triglycerides LDL Cholesterol Direct HDL Cholesterol Arterial Blood Glucose 394 H Arterial Blood Ionized Calcium Coronavirus (PCR) Crossmatch 12/03/20 12/04/20 12/04/20 21:16 04:27 06:49 WBC RBC Hgb Hct MCV MCH RDW Plt Count Lymph % (Auto) Lymph # (Auto) Seg Neutrophils % Seg Neuts % (Manual) Lymphocytes % (Manual) Nucleated RBC % Seg Neutrophils # Man Lymphocytes # (Manual) PT INR APTT Fibrinogen D-Dimer Heparin Anti-Xa Level ABG pH 7.530 H POC ABG pCO2 POC ABG pO2 37.6 L ABG O2 Saturation ABG Hemoglobin 9.6 L ABG Oxyhemoglobin 72.5 L ABG Sodium 132.3 L ABG Potassium ABG Chloride ABG Glucose 180 H Oxyhemoglobin Carboxyhemoglobin 0.4 L Sodium 136 L Potassium Chloride 97.3 L Carbon Dioxide BUN 23 H Creatinine Glucose 166 H POC Glucose 295 H Hemoglobin A1c Lactic Acid Calcium Phosphorus Magnesium Ferritin AST Alkaline Phosphatase Lactate Dehydrogenase Total Creatine Kinase CK-MB (CK-2) CK-MB (CK-2) Rel Index Troponin T C-Reactive Protein NT-Pro-B Natriuret Pep Total Protein 5.7 L Albumin 2.6 L Triglycerides LDL Cholesterol Direct HDL Cholesterol Arterial Blood Glucose 180 H Arterial Blood Ionized Calcium Coronavirus (PCR) Crossmatch 12/04/20 12/04/20 12/04/20 07:49 11:37 16:22 WBC RBC Hgb Hct MCV MCH RDW Plt Count Lymph % (Auto) Lymph # (Auto) Seg Neutrophils % Seg Neuts % (Manual) Lymphocytes % (Manual) Nucleated RBC % Seg Neutrophils # Man Lymphocytes # (Manual) PT INR APTT Fibrinogen D-Dimer Heparin Anti-Xa Level ABG pH POC ABG pCO2 POC ABG pO2 ABG O2 Saturation ABG Hemoglobin ABG Oxyhemoglobin ABG Sodium ABG Potassium ABG Chloride ABG Glucose Oxyhemoglobin Carboxyhemoglobin Sodium Potassium Chloride Carbon Dioxide BUN Creatinine Glucose POC Glucose 180 H 213 H 177 H Hemoglobin A1c Lactic Acid Calcium Phosphorus Magnesium Ferritin AST Alkaline Phosphatase Lactate Dehydrogenase Total Creatine Kinase CK-MB (CK-2) CK-MB (CK-2) Rel Index Troponin T C-Reactive Protein NT-Pro-B Natriuret Pep Total Protein Albumin Triglycerides LDL Cholesterol Direct HDL Cholesterol Arterial Blood Glucose Arterial Blood Ionized Calcium Coronavirus (PCR) Crossmatch 12/04/20 12/04/20 12/05/20 22:21 23:12 05:16 WBC RBC Hgb Hct MCV MCH RDW Plt Count Lymph % (Auto) Lymph # (Auto) Seg Neutrophils % Seg Neuts % (Manual) Lymphocytes % (Manual) Nucleated RBC % Seg Neutrophils # Man Lymphocytes # (Manual) PT INR APTT Fibrinogen D-Dimer Heparin Anti-Xa Level ABG pH 7.494 H POC ABG pCO2 POC ABG pO2 56.3 L ABG O2 Saturation ABG Hemoglobin 8.6 L ABG Oxyhemoglobin 88.3 L ABG Sodium 131.8 L ABG Potassium ABG Chloride ABG Glucose 205 H Oxyhemoglobin Carboxyhemoglobin 0.3 L Sodium Potassium Chloride Carbon Dioxide BUN 19 H Creatinine Glucose 64 L POC Glucose 207 H Hemoglobin A1c Lactic Acid Calcium Phosphorus Magnesium Ferritin AST Alkaline Phosphatase Lactate Dehydrogenase Total Creatine Kinase CK-MB (CK-2) CK-MB (CK-2) Rel Index Troponin T C-Reactive Protein NT-Pro-B Natriuret Pep Total Protein 6.0 L Albumin 2.8 L Triglycerides LDL Cholesterol Direct HDL Cholesterol Arterial Blood Glucose 205 H Arterial Blood Ionized Calcium Coronavirus (PCR) Crossmatch 12/05/20 12/05/20 12/05/20 08:01 09:07 12:31 WBC RBC Hgb Hct MCV MCH RDW Plt Count Lymph % (Auto) Lymph # (Auto) Seg Neutrophils % Seg Neuts % (Manual) Lymphocytes % (Manual) Nucleated RBC % Seg Neutrophils # Man Lymphocytes # (Manual) PT INR APTT Fibrinogen D-Dimer Heparin Anti-Xa Level ABG pH POC ABG pCO2 POC ABG pO2 ABG O2 Saturation ABG Hemoglobin ABG Oxyhemoglobin ABG Sodium ABG Potassium ABG Chloride ABG Glucose Oxyhemoglobin Carboxyhemoglobin Sodium Potassium Chloride Carbon Dioxide BUN Creatinine Glucose POC Glucose 49 L 157 H 113 H Hemoglobin A1c Lactic Acid Calcium Phosphorus Magnesium Ferritin AST Alkaline Phosphatase Lactate Dehydrogenase Total Creatine Kinase CK-MB (CK-2) CK-MB (CK-2) Rel Index Troponin T C-Reactive Protein NT-Pro-B Natriuret Pep Total Protein Albumin Triglycerides LDL Cholesterol Direct HDL Cholesterol Arterial Blood Glucose Arterial Blood Ionized Calcium Coronavirus (PCR) Crossmatch 12/05/20 12/06/20 12/06/20 16:57 07:51 12:07 WBC RBC Hgb Hct MCV MCH RDW Plt Count Lymph % (Auto) Lymph # (Auto) Seg Neutrophils % Seg Neuts % (Manual) Lymphocytes % (Manual) Nucleated RBC % Seg Neutrophils # Man Lymphocytes # (Manual) PT INR APTT Fibrinogen D-Dimer Heparin Anti-Xa Level ABG pH POC ABG pCO2 POC ABG pO2 ABG O2 Saturation ABG Hemoglobin ABG Oxyhemoglobin ABG Sodium ABG Potassium ABG Chloride ABG Glucose Oxyhemoglobin Carboxyhemoglobin Sodium Potassium Chloride Carbon Dioxide BUN Creatinine Glucose POC Glucose 223 H 110 H 229 H Hemoglobin A1c Lactic Acid Calcium Phosphorus Magnesium Ferritin AST Alkaline Phosphatase Lactate Dehydrogenase Total Creatine Kinase CK-MB (CK-2) CK-MB (CK-2) Rel Index Troponin T C-Reactive Protein NT-Pro-B Natriuret Pep Total Protein Albumin Triglycerides LDL Cholesterol Direct HDL Cholesterol Arterial Blood Glucose Arterial Blood Ionized Calcium Coronavirus (PCR) Crossmatch 12/06/20 12/06/20 12/06/20 14:56 16:00 18:53 WBC RBC Hgb 9.6 L Hct MCV MCH RDW Plt Count Lymph % (Auto) Lymph # (Auto) Seg Neutrophils % Seg Neuts % (Manual) Lymphocytes % (Manual) Nucleated RBC % Seg Neutrophils # Man Lymphocytes # (Manual) PT INR APTT Fibrinogen D-Dimer > 34973 H Heparin Anti-Xa Level ABG pH POC ABG pCO2 POC ABG pO2 ABG O2 Saturation ABG Hemoglobin ABG Oxyhemoglobin ABG Sodium ABG Potassium ABG Chloride ABG Glucose Oxyhemoglobin Carboxyhemoglobin Sodium Potassium Chloride Carbon Dioxide BUN Creatinine Glucose POC Glucose 235 H Hemoglobin A1c Lactic Acid Calcium Phosphorus Magnesium Ferritin AST Alkaline Phosphatase Lactate Dehydrogenase Total Creatine Kinase CK-MB (CK-2) CK-MB (CK-2) Rel Index Troponin T C-Reactive Protein NT-Pro-B Natriuret Pep Total Protein Albumin Triglycerides LDL Cholesterol Direct HDL Cholesterol Arterial Blood Glucose Arterial Blood Ionized Calcium Coronavirus (PCR) Crossmatch 12/06/20 12/06/20 12/07/20 18:53 23:15 07:03 WBC RBC Hgb Hct MCV MCH RDW Plt Count Lymph % (Auto) Lymph # (Auto) Seg Neutrophils % Seg Neuts % (Manual) Lymphocytes % (Manual) Nucleated RBC % Seg Neutrophils # Man Lymphocytes # (Manual) PT 17.4 H INR 1.37 H APTT Fibrinogen D-Dimer Heparin Anti-Xa Level ABG pH POC ABG pCO2 POC ABG pO2 ABG O2 Saturation ABG Hemoglobin ABG Oxyhemoglobin ABG Sodium ABG Potassium ABG Chloride ABG Glucose Oxyhemoglobin Carboxyhemoglobin Sodium Potassium Chloride Carbon Dioxide BUN 23 H Creatinine Glucose 62 L POC Glucose 170 H Hemoglobin A1c Lactic Acid Calcium Phosphorus Magnesium Ferritin AST Alkaline Phosphatase Lactate Dehydrogenase Total Creatine Kinase CK-MB (CK-2) CK-MB (CK-2) Rel Index Troponin T C-Reactive Protein NT-Pro-B Natriuret Pep Total Protein Albumin Triglycerides LDL Cholesterol Direct HDL Cholesterol Arterial Blood Glucose Arterial Blood Ionized Calcium Coronavirus (PCR) Crossmatch 12/07/20 12/07/20 12/07/20 07:03 07:28 17:45 WBC RBC Hgb Hct MCV MCH RDW Plt Count Lymph % (Auto) Lymph # (Auto) Seg Neutrophils % Seg Neuts % (Manual) Lymphocytes % (Manual) Nucleated RBC % Seg Neutrophils # Man Lymphocytes # (Manual) PT INR APTT Fibrinogen D-Dimer Heparin Anti-Xa Level 0.85 H ABG pH POC ABG pCO2 POC ABG pO2 ABG O2 Saturation ABG Hemoglobin ABG Oxyhemoglobin ABG Sodium ABG Potassium ABG Chloride ABG Glucose Oxyhemoglobin Carboxyhemoglobin Sodium Potassium Chloride Carbon Dioxide BUN Creatinine Glucose POC Glucose 54 L 196 H Hemoglobin A1c Lactic Acid Calcium Phosphorus Magnesium Ferritin AST Alkaline Phosphatase Lactate Dehydrogenase Total Creatine Kinase CK-MB (CK-2) CK-MB (CK-2) Rel Index Troponin T C-Reactive Protein NT-Pro-B Natriuret Pep Total Protein Albumin Triglycerides LDL Cholesterol Direct HDL Cholesterol Arterial Blood Glucose Arterial Blood Ionized Calcium Coronavirus (PCR) Crossmatch 12/07/20 12/08/20 12/08/20 21:26 13:11 13:25 WBC RBC Hgb Hct MCV MCH RDW Plt Count Lymph % (Auto) Lymph # (Auto) Seg Neutrophils % Seg Neuts % (Manual) Lymphocytes % (Manual) Nucleated RBC % Seg Neutrophils # Man Lymphocytes # (Manual) PT INR APTT Fibrinogen D-Dimer Heparin Anti-Xa Level ABG pH POC ABG pCO2 POC ABG pO2 ABG O2 Saturation ABG Hemoglobin ABG Oxyhemoglobin ABG Sodium ABG Potassium ABG Chloride ABG Glucose Oxyhemoglobin Carboxyhemoglobin Sodium Potassium Chloride Carbon Dioxide BUN Creatinine Glucose POC Glucose 165 H 62 L Hemoglobin A1c Lactic Acid Calcium Phosphorus Magnesium Ferritin AST Alkaline Phosphatase Lactate Dehydrogenase Total Creatine Kinase 520 H CK-MB (CK-2) 33.2 H CK-MB (CK-2) Rel Index 6.3 H Troponin T 0.646 H* C-Reactive Protein NT-Pro-B Natriuret Pep Total Protein Albumin Triglycerides 181 H LDL Cholesterol Direct 30 L HDL Cholesterol 35 L Arterial Blood Glucose Arterial Blood Ionized Calcium Coronavirus (PCR) Crossmatch 12/08/20 12/08/20 12/08/20 15:36 18:05 20:15 WBC RBC Hgb Hct MCV MCH RDW Plt Count Lymph % (Auto) Lymph # (Auto) Seg Neutrophils % Seg Neuts % (Manual) Lymphocytes % (Manual) Nucleated RBC % Seg Neutrophils # Man Lymphocytes # (Manual) PT INR APTT Fibrinogen D-Dimer Heparin Anti-Xa Level ABG pH 7.117 L POC ABG pCO2 61.7 H POC ABG pO2 39.7 L ABG O2 Saturation ABG Hemoglobin 9.0 L ABG Oxyhemoglobin 46.0 L ABG Sodium 135.7 L ABG Potassium 4.6 H ABG Chloride ABG Glucose 235 H Oxyhemoglobin Carboxyhemoglobin Sodium Potassium Chloride Carbon Dioxide BUN Creatinine Glucose POC Glucose 163 H Hemoglobin A1c Lactic Acid Calcium Phosphorus Magnesium Ferritin AST Alkaline Phosphatase Lactate Dehydrogenase Total Creatine Kinase 521 H CK-MB (CK-2) 31.5 H CK-MB (CK-2) Rel Index 6.0 H Troponin T 0.648 H* C-Reactive Protein NT-Pro-B Natriuret Pep 1573 H Total Protein Albumin Triglycerides LDL Cholesterol Direct HDL Cholesterol Arterial Blood Glucose 235 H Arterial Blood Ionized Calcium Coronavirus (PCR) Crossmatch 12/08/20 12/08/20 12/08/20 20:15 20:15 20:15 WBC 24.0 H RBC 3.35 L Hgb 8.1 L Hct 26.0 L D MCV 78 L MCH 24 L RDW 18.5 H Plt Count Lymph % (Auto) Lymph # (Auto) Seg Neutrophils % Seg Neuts % (Manual) 91.0 H Lymphocytes % (Manual) 5.0 L Nucleated RBC % Seg Neutrophils # Man 21.8 H Lymphocytes # (Manual) PT INR APTT 62.9 H* Fibrinogen D-Dimer > 17352 H Heparin Anti-Xa Level ABG pH POC ABG pCO2 POC ABG pO2 ABG O2 Saturation ABG Hemoglobin ABG Oxyhemoglobin ABG Sodium ABG Potassium ABG Chloride ABG Glucose Oxyhemoglobin Carboxyhemoglobin Sodium Potassium 5.1 H D Chloride Carbon Dioxide BUN 27 H Creatinine Glucose 186 H POC Glucose Hemoglobin A1c Lactic Acid Calcium 7.8 L Phosphorus 5.50 H Magnesium 2.40 H Ferritin AST 126 H Alkaline Phosphatase 298 H Lactate Dehydrogenase 2677 H Total Creatine Kinase CK-MB (CK-2) CK-MB (CK-2) Rel Index Troponin T C-Reactive Protein NT-Pro-B Natriuret Pep Total Protein 4.9 L Albumin 2.6 L Triglycerides LDL Cholesterol Direct HDL Cholesterol Arterial Blood Glucose Arterial Blood Ionized Calcium Coronavirus (PCR) Crossmatch 12/08/20 12/08/20 12/09/20 21:00 22:03 06:00 WBC RBC Hgb Hct MCV MCH RDW Plt Count Lymph % (Auto) Lymph # (Auto) Seg Neutrophils % Seg Neuts % (Manual) Lymphocytes % (Manual) Nucleated RBC % Seg Neutrophils # Man Lymphocytes # (Manual) PT INR APTT Fibrinogen D-Dimer Heparin Anti-Xa Level 0.85 H ABG pH 7.318 L POC ABG pCO2 51.9 H POC ABG pO2 74.6 L ABG O2 Saturation ABG Hemoglobin 8.9 L ABG Oxyhemoglobin 90.8 L ABG Sodium ABG Potassium 4.9 H ABG Chloride ABG Glucose 141 H Oxyhemoglobin Carboxyhemoglobin Sodium Potassium Chloride Carbon Dioxide BUN Creatinine Glucose POC Glucose 163 H Hemoglobin A1c Lactic Acid Calcium Phosphorus Magnesium Ferritin AST Alkaline Phosphatase Lactate Dehydrogenase Total Creatine Kinase CK-MB (CK-2) CK-MB (CK-2) Rel Index Troponin T C-Reactive Protein NT-Pro-B Natriuret Pep Total Protein Albumin Triglycerides LDL Cholesterol Direct HDL Cholesterol Arterial Blood Glucose 141 H Arterial Blood Ionized Calcium 4.5 L Coronavirus (PCR) Crossmatch 12/09/20 12/09/20 12/09/20 08:13 11:53 13:08 WBC RBC Hgb Hct MCV MCH RDW Plt Count Lymph % (Auto) Lymph # (Auto) Seg Neutrophils % Seg Neuts % (Manual) Lymphocytes % (Manual) Nucleated RBC % Seg Neutrophils # Man Lymphocytes # (Manual) PT INR APTT Fibrinogen D-Dimer Heparin Anti-Xa Level 0.94 H ABG pH POC ABG pCO2 50.7 H POC ABG pO2 156.4 H ABG O2 Saturation ABG Hemoglobin 8.7 L ABG Oxyhemoglobin ABG Sodium 134.9 L ABG Potassium 5.4 H ABG Chloride ABG Glucose 140 H Oxyhemoglobin Carboxyhemoglobin Sodium Potassium Chloride Carbon Dioxide BUN Creatinine Glucose POC Glucose 127 H Hemoglobin A1c Lactic Acid Calcium Phosphorus Magnesium Ferritin AST Alkaline Phosphatase Lactate Dehydrogenase Total Creatine Kinase CK-MB (CK-2) CK-MB (CK-2) Rel Index Troponin T C-Reactive Protein NT-Pro-B Natriuret Pep Total Protein Albumin Triglycerides LDL Cholesterol Direct HDL Cholesterol Arterial Blood Glucose 140 H Arterial Blood Ionized Calcium 4.2 L Coronavirus (PCR) Crossmatch 12/09/20 12/09/20 12/09/20 13:08 13:08 13:08 WBC 20.8 H RBC 3.35 L Hgb 8.3 L Hct 26.2 L MCV 78 L MCH 25 L RDW 19.5 H Plt Count Lymph % (Auto) Lymph # (Auto) Seg Neutrophils % Seg Neuts % (Manual) Lymphocytes % (Manual) Nucleated RBC % Seg Neutrophils # Man Lymphocytes # (Manual) PT 15.2 H INR 1.15 H APTT 84.5 H* Fibrinogen D-Dimer 4051.67 H Heparin Anti-Xa Level ABG pH POC ABG pCO2 POC ABG pO2 ABG O2 Saturation ABG Hemoglobin ABG Oxyhemoglobin ABG Sodium ABG Potassium ABG Chloride ABG Glucose Oxyhemoglobin Carboxyhemoglobin Sodium Potassium Chloride Carbon Dioxide BUN 34 H Creatinine 1.4 H Glucose 156 H POC Glucose Hemoglobin A1c Lactic Acid Calcium 8.1 L Phosphorus Magnesium Ferritin AST 97 H Alkaline Phosphatase 241 H Lactate Dehydrogenase Total Creatine Kinase CK-MB (CK-2) CK-MB (CK-2) Rel Index Troponin T C-Reactive Protein NT-Pro-B Natriuret Pep Total Protein 5.2 L Albumin 2.7 L Triglycerides LDL Cholesterol Direct HDL Cholesterol Arterial Blood Glucose Arterial Blood Ionized Calcium Coronavirus (PCR) Crossmatch 12/09/20 12/09/20 12/09/20 13:08 13:08 13:08 WBC RBC Hgb Hct MCV MCH RDW Plt Count Lymph % (Auto) Lymph # (Auto) Seg Neutrophils % Seg Neuts % (Manual) Lymphocytes % (Manual) Nucleated RBC % Seg Neutrophils # Man Lymphocytes # (Manual) PT INR APTT Fibrinogen D-Dimer Heparin Anti-Xa Level ABG pH POC ABG pCO2 POC ABG pO2 ABG O2 Saturation ABG Hemoglobin ABG Oxyhemoglobin ABG Sodium ABG Potassium ABG Chloride ABG Glucose Oxyhemoglobin Carboxyhemoglobin Sodium Potassium Chloride Carbon Dioxide BUN Creatinine Glucose POC Glucose Hemoglobin A1c Lactic Acid 2.50 H* Calcium Phosphorus 4.70 H Magnesium 2.70 H Ferritin 472.6 H AST Alkaline Phosphatase Lactate Dehydrogenase 2146 H Total Creatine Kinase CK-MB (CK-2) CK-MB (CK-2) Rel Index Troponin T 0.487 H* D C-Reactive Protein 8.70 H NT-Pro-B Natriuret Pep Total Protein Albumin Triglycerides LDL Cholesterol Direct HDL Cholesterol Arterial Blood Glucose Arterial Blood Ionized Calcium Coronavirus (PCR) Crossmatch 12/09/20 12/09/20 12/09/20 13:08 17:17 23:43 WBC RBC Hgb Hct MCV MCH RDW Plt Count Lymph % (Auto) Lymph # (Auto) Seg Neutrophils % Seg Neuts % (Manual) Lymphocytes % (Manual) Nucleated RBC % Seg Neutrophils # Man Lymphocytes # (Manual) PT INR APTT Fibrinogen D-Dimer Heparin Anti-Xa Level ABG pH POC ABG pCO2 POC ABG pO2 ABG O2 Saturation ABG Hemoglobin ABG Oxyhemoglobin ABG Sodium ABG Potassium ABG Chloride ABG Glucose Oxyhemoglobin Carboxyhemoglobin Sodium Potassium Chloride Carbon Dioxide BUN Creatinine Glucose POC Glucose 179 H 144 H Hemoglobin A1c Lactic Acid Calcium Phosphorus Magnesium Ferritin AST Alkaline Phosphatase Lactate Dehydrogenase Total Creatine Kinase CK-MB (CK-2) CK-MB (CK-2) Rel Index Troponin T C-Reactive Protein NT-Pro-B Natriuret Pep 2396 H Total Protein Albumin Triglycerides LDL Cholesterol Direct HDL Cholesterol Arterial Blood Glucose Arterial Blood Ionized Calcium Coronavirus (PCR) Crossmatch 12/10/20 12/10/20 12/10/20 02:39 03:08 04:10 WBC 19.2 H RBC 2.76 L Hgb 6.7 L Hct 21.7 L MCV MCH 24 L RDW 19.3 H Plt Count Lymph % (Auto) Lymph # (Auto) Seg Neutrophils % Seg Neuts % (Manual) 95.0 H Lymphocytes % (Manual) 1.0 L Nucleated RBC % 3.0 H Seg Neutrophils # Man 18.2 H Lymphocytes # (Manual) 0.2 L PT INR APTT Fibrinogen D-Dimer Heparin Anti-Xa Level ABG pH POC ABG pCO2 POC ABG pO2 ABG O2 Saturation ABG Hemoglobin 6.3 L ABG Oxyhemoglobin 93.8 L ABG Sodium ABG Potassium ABG Chloride 108.0 H ABG Glucose 237 H Oxyhemoglobin Carboxyhemoglobin Sodium Potassium Chloride Carbon Dioxide BUN Creatinine Glucose POC Glucose Hemoglobin A1c Lactic Acid Calcium Phosphorus Magnesium Ferritin AST Alkaline Phosphatase Lactate Dehydrogenase Total Creatine Kinase CK-MB (CK-2) CK-MB (CK-2) Rel Index Troponin T C-Reactive Protein NT-Pro-B Natriuret Pep Total Protein Albumin Triglycerides LDL Cholesterol Direct HDL Cholesterol Arterial Blood Glucose 237 H Arterial Blood Ionized Calcium 4.3 L Coronavirus (PCR) Crossmatch See Detail 12/10/20 12/10/20 12/10/20 05:42 07:43 11:47 WBC RBC Hgb Hct MCV MCH RDW Plt Count Lymph % (Auto) Lymph # (Auto) Seg Neutrophils % Seg Neuts % (Manual) Lymphocytes % (Manual) Nucleated RBC % Seg Neutrophils # Man Lymphocytes # (Manual) PT INR APTT Fibrinogen D-Dimer Heparin Anti-Xa Level ABG pH POC ABG pCO2 POC ABG pO2 ABG O2 Saturation ABG Hemoglobin ABG Oxyhemoglobin ABG Sodium ABG Potassium ABG Chloride ABG Glucose Oxyhemoglobin Carboxyhemoglobin Sodium Potassium Chloride Carbon Dioxide BUN 39 H Creatinine 1.5 H Glucose 218 H POC Glucose 209 H 208 H Hemoglobin A1c Lactic Acid Calcium 7.9 L Phosphorus Magnesium Ferritin AST Alkaline Phosphatase Lactate Dehydrogenase Total Creatine Kinase CK-MB (CK-2) CK-MB (CK-2) Rel Index Troponin T C-Reactive Protein NT-Pro-B Natriuret Pep Total Protein Albumin Triglycerides LDL Cholesterol Direct HDL Cholesterol Arterial Blood Glucose Arterial Blood Ionized Calcium Coronavirus (PCR) Crossmatch 12/10/20 12/10/20 12/10/20 13:30 17:26 21:32 WBC RBC Hgb 7.8 L Hct 24.0 L MCV MCH RDW Plt Count Lymph % (Auto) Lymph # (Auto) Seg Neutrophils % Seg Neuts % (Manual) Lymphocytes % (Manual) Nucleated RBC % Seg Neutrophils # Man Lymphocytes # (Manual) PT INR APTT Fibrinogen D-Dimer Heparin Anti-Xa Level ABG pH POC ABG pCO2 POC ABG pO2 ABG O2 Saturation ABG Hemoglobin ABG Oxyhemoglobin ABG Sodium ABG Potassium ABG Chloride ABG Glucose Oxyhemoglobin Carboxyhemoglobin Sodium Potassium Chloride Carbon Dioxide BUN Creatinine Glucose POC Glucose 184 H 135 H Hemoglobin A1c Lactic Acid Calcium Phosphorus Magnesium Ferritin AST Alkaline Phosphatase Lactate Dehydrogenase Total Creatine Kinase CK-MB (CK-2) CK-MB (CK-2) Rel Index Troponin T C-Reactive Protein NT-Pro-B Natriuret Pep Total Protein Albumin Triglycerides LDL Cholesterol Direct HDL Cholesterol Arterial Blood Glucose Arterial Blood Ionized Calcium Coronavirus (PCR) Crossmatch 12/10/20 12/11/20 12/11/20 23:03 02:57 04:29 WBC RBC Hgb Hct MCV MCH RDW Plt Count Lymph % (Auto) Lymph # (Auto) Seg Neutrophils % Seg Neuts % (Manual) Lymphocytes % (Manual) Nucleated RBC % Seg Neutrophils # Man Lymphocytes # (Manual) PT INR APTT Fibrinogen D-Dimer Heparin Anti-Xa Level ABG pH POC ABG pCO2 POC ABG pO2 ABG O2 Saturation ABG Hemoglobin 7.4 L ABG Oxyhemoglobin ABG Sodium ABG Potassium ABG Chloride 110.0 H ABG Glucose 250 H Oxyhemoglobin Carboxyhemoglobin Sodium Potassium Chloride Carbon Dioxide BUN Creatinine Glucose POC Glucose 204 H Hemoglobin A1c Lactic Acid Calcium Phosphorus Magnesium Ferritin AST Alkaline Phosphatase Lactate Dehydrogenase Total Creatine Kinase CK-MB (CK-2) CK-MB (CK-2) Rel Index Troponin T C-Reactive Protein NT-Pro-B Natriuret Pep Total Protein Albumin Triglycerides 366 H LDL Cholesterol Direct HDL Cholesterol Arterial Blood Glucose 250 H Arterial Blood Ionized Calcium 4.4 L Coronavirus (PCR) Crossmatch 12/11/20 12/11/20 12/11/20 04:29 04:29 05:05 WBC 16.5 H RBC 2.60 L Hgb 7.0 L Hct 21.8 L MCV MCH 27 L RDW 18.4 H Plt Count 111 L Lymph % (Auto) Lymph # (Auto) Seg Neutrophils % Seg Neuts % (Manual) Lymphocytes % (Manual) Nucleated RBC % Seg Neutrophils # Man Lymphocytes # (Manual) PT INR APTT Fibrinogen D-Dimer Heparin Anti-Xa Level ABG pH POC ABG pCO2 POC ABG pO2 ABG O2 Saturation ABG Hemoglobin ABG Oxyhemoglobin ABG Sodium ABG Potassium ABG Chloride ABG Glucose Oxyhemoglobin Carboxyhemoglobin Sodium Potassium Chloride 107.5 H Carbon Dioxide BUN 45 H Creatinine 1.4 H Glucose 258 H POC Glucose 250 H Hemoglobin A1c Lactic Acid Calcium 7.7 L Phosphorus Magnesium 3.00 H Ferritin AST 78 H Alkaline Phosphatase 141 H Lactate Dehydrogenase Total Creatine Kinase CK-MB (CK-2) CK-MB (CK-2) Rel Index Troponin T C-Reactive Protein NT-Pro-B Natriuret Pep Total Protein 4.4 L Albumin 2.2 L Triglycerides LDL Cholesterol Direct HDL Cholesterol Arterial Blood Glucose Arterial Blood Ionized Calcium Coronavirus (PCR) Crossmatch 12/11/20 12/11/20 12/11/20 10:25 11:07 15:45 WBC RBC Hgb 6.7 L Hct 21.0 L MCV MCH RDW Plt Count Lymph % (Auto) Lymph # (Auto) Seg Neutrophils % Seg Neuts % (Manual) Lymphocytes % (Manual) Nucleated RBC % Seg Neutrophils # Man Lymphocytes # (Manual) PT INR APTT Fibrinogen D-Dimer Heparin Anti-Xa Level < 0.10 L ABG pH POC ABG pCO2 POC ABG pO2 ABG O2 Saturation ABG Hemoglobin ABG Oxyhemoglobin ABG Sodium ABG Potassium ABG Chloride ABG Glucose Oxyhemoglobin Carboxyhemoglobin Sodium Potassium Chloride Carbon Dioxide BUN Creatinine Glucose POC Glucose 225 H Hemoglobin A1c Lactic Acid Calcium Phosphorus Magnesium Ferritin AST Alkaline Phosphatase Lactate Dehydrogenase Total Creatine Kinase CK-MB (CK-2) CK-MB (CK-2) Rel Index Troponin T C-Reactive Protein NT-Pro-B Natriuret Pep Total Protein Albumin Triglycerides LDL Cholesterol Direct HDL Cholesterol Arterial Blood Glucose Arterial Blood Ionized Calcium Coronavirus (PCR) Crossmatch 12/11/20 12/11/20 12/11/20 15:45 16:21 17:54 WBC 17.2 H RBC 2.38 L Hgb 6.3 L Hct 19.6 L* MCV MCH 27 L RDW 18.8 H Plt Count 91 L Lymph % (Auto) Lymph # (Auto) Seg Neutrophils % Seg Neuts % (Manual) Lymphocytes % (Manual) Nucleated RBC % Seg Neutrophils # Man Lymphocytes # (Manual) PT 17.3 H INR 1.35 H APTT Fibrinogen 104 L* D-Dimer Heparin Anti-Xa Level ABG pH POC ABG pCO2 POC ABG pO2 ABG O2 Saturation ABG Hemoglobin ABG Oxyhemoglobin ABG Sodium ABG Potassium ABG Chloride ABG Glucose Oxyhemoglobin Carboxyhemoglobin Sodium Potassium Chloride Carbon Dioxide BUN Creatinine Glucose POC Glucose 259 H Hemoglobin A1c Lactic Acid Calcium Phosphorus Magnesium Ferritin AST Alkaline Phosphatase Lactate Dehydrogenase Total Creatine Kinase CK-MB (CK-2) CK-MB (CK-2) Rel Index Troponin T C-Reactive Protein NT-Pro-B Natriuret Pep Total Protein Albumin Triglycerides LDL Cholesterol Direct HDL Cholesterol Arterial Blood Glucose Arterial Blood Ionized Calcium Coronavirus (PCR) Crossmatch 12/11/20 12/11/20 12/11/20 21:28 23:19 Unknown WBC RBC Hgb 8.3 L Hct 26.0 L D MCV MCH RDW Plt Count Lymph % (Auto) Lymph # (Auto) Seg Neutrophils % Seg Neuts % (Manual) Lymphocytes % (Manual) Nucleated RBC % Seg Neutrophils # Man Lymphocytes # (Manual) PT INR APTT Fibrinogen D-Dimer Heparin Anti-Xa Level ABG pH POC ABG pCO2 POC ABG pO2 ABG O2 Saturation ABG Hemoglobin ABG Oxyhemoglobin ABG Sodium ABG Potassium ABG Chloride ABG Glucose Oxyhemoglobin Carboxyhemoglobin Sodium Potassium Chloride Carbon Dioxide BUN Creatinine Glucose POC Glucose 251 H 229 H Hemoglobin A1c Lactic Acid Calcium Phosphorus Magnesium Ferritin AST Alkaline Phosphatase Lactate Dehydrogenase Total Creatine Kinase CK-MB (CK-2) CK-MB (CK-2) Rel Index Troponin T C-Reactive Protein NT-Pro-B Natriuret Pep Total Protein Albumin Triglycerides LDL Cholesterol Direct HDL Cholesterol Arterial Blood Glucose Arterial Blood Ionized Calcium Coronavirus (PCR) Crossmatch 12/12/20 12/12/20 12/12/20 04:00 04:44 06:04 WBC 22.1 H RBC 3.21 L Hgb 8.4 L Hct 26.8 L MCV MCH 26 L RDW 19.5 H Plt Count 106 L Lymph % (Auto) Lymph # (Auto) Seg Neutrophils % Seg Neuts % (Manual) Lymphocytes % (Manual) Nucleated RBC % Seg Neutrophils # Man Lymphocytes # (Manual) PT INR APTT Fibrinogen D-Dimer Heparin Anti-Xa Level ABG pH POC ABG pCO2 POC ABG pO2 79.5 L ABG O2 Saturation ABG Hemoglobin 8.8 L ABG Oxyhemoglobin 93.5 L ABG Sodium ABG Potassium ABG Chloride 114.0 H ABG Glucose 257 H Oxyhemoglobin Carboxyhemoglobin Sodium Potassium Chloride Carbon Dioxide BUN Creatinine Glucose POC Glucose 232 H Hemoglobin A1c Lactic Acid Calcium Phosphorus Magnesium Ferritin AST Alkaline Phosphatase Lactate Dehydrogenase Total Creatine Kinase CK-MB (CK-2) CK-MB (CK-2) Rel Index Troponin T C-Reactive Protein NT-Pro-B Natriuret Pep Total Protein Albumin Triglycerides LDL Cholesterol Direct HDL Cholesterol Arterial Blood Glucose 257 H Arterial Blood Ionized Calcium Coronavirus (PCR) Crossmatch 12/12/20 12/12/20 12/12/20 06:04 06:04 08:10 WBC RBC Hgb Hct MCV MCH RDW Plt Count Lymph % (Auto) Lymph # (Auto) Seg Neutrophils % Seg Neuts % (Manual) Lymphocytes % (Manual) Nucleated RBC % Seg Neutrophils # Man Lymphocytes # (Manual) PT INR APTT Fibrinogen 100 L* D-Dimer > 89706 H Heparin Anti-Xa Level ABG pH POC ABG pCO2 POC ABG pO2 ABG O2 Saturation ABG Hemoglobin ABG Oxyhemoglobin ABG Sodium ABG Potassium ABG Chloride ABG Glucose Oxyhemoglobin Carboxyhemoglobin Sodium 146 H D Potassium Chloride 116.0 H Carbon Dioxide 20 L BUN 40 H Creatinine Glucose 234 H POC Glucose Hemoglobin A1c Lactic Acid Calcium 7.5 L Phosphorus Magnesium 3.10 H Ferritin 240.7 H AST Alkaline Phosphatase Lactate Dehydrogenase 1274 H Total Creatine Kinase CK-MB (CK-2) CK-MB (CK-2) Rel Index Troponin T C-Reactive Protein 2.80 H NT-Pro-B Natriuret Pep Total Protein Albumin Triglycerides LDL Cholesterol Direct HDL Cholesterol Arterial Blood Glucose Arterial Blood Ionized Calcium Coronavirus (PCR) Crossmatch 12/12/20 12/12/20 12/12/20 08:10 11:49 17:41 WBC RBC Hgb 8.2 L Hct 25.9 L MCV MCH RDW Plt Count Lymph % (Auto) Lymph # (Auto) Seg Neutrophils % Seg Neuts % (Manual) Lymphocytes % (Manual) Nucleated RBC % Seg Neutrophils # Man Lymphocytes # (Manual) PT INR APTT Fibrinogen D-Dimer Heparin Anti-Xa Level ABG pH POC ABG pCO2 POC ABG pO2 ABG O2 Saturation ABG Hemoglobin ABG Oxyhemoglobin ABG Sodium ABG Potassium ABG Chloride ABG Glucose Oxyhemoglobin Carboxyhemoglobin Sodium Potassium Chloride Carbon Dioxide BUN Creatinine Glucose POC Glucose 215 H 143 H Hemoglobin A1c Lactic Acid Calcium Phosphorus Magnesium Ferritin AST Alkaline Phosphatase Lactate Dehydrogenase Total Creatine Kinase CK-MB (CK-2) CK-MB (CK-2) Rel Index Troponin T C-Reactive Protein NT-Pro-B Natriuret Pep Total Protein Albumin Triglycerides LDL Cholesterol Direct HDL Cholesterol Arterial Blood Glucose Arterial Blood Ionized Calcium Coronavirus (PCR) Crossmatch 12/12/20 12/13/20 12/13/20 23:38 04:00 05:20 WBC RBC Hgb Hct MCV MCH RDW Plt Count Lymph % (Auto) Lymph # (Auto) Seg Neutrophils % Seg Neuts % (Manual) Lymphocytes % (Manual) Nucleated RBC % Seg Neutrophils # Man Lymphocytes # (Manual) PT INR APTT Fibrinogen D-Dimer Heparin Anti-Xa Level ABG pH POC ABG pCO2 POC ABG pO2 56.6 L ABG O2 Saturation ABG Hemoglobin 7.0 L ABG Oxyhemoglobin 85.1 L ABG Sodium ABG Potassium ABG Chloride 118.0 H ABG Glucose 231 H Oxyhemoglobin Carboxyhemoglobin 2.0 H Sodium Potassium Chloride Carbon Dioxide BUN Creatinine Glucose POC Glucose 220 H 215 H Hemoglobin A1c Lactic Acid Calcium Phosphorus Magnesium Ferritin AST Alkaline Phosphatase Lactate Dehydrogenase Total Creatine Kinase CK-MB (CK-2) CK-MB (CK-2) Rel Index Troponin T C-Reactive Protein NT-Pro-B Natriuret Pep Total Protein Albumin Triglycerides LDL Cholesterol Direct HDL Cholesterol Arterial Blood Glucose 231 H Arterial Blood Ionized Calcium Coronavirus (PCR) Crossmatch 12/13/20 12/13/20 12/13/20 06:55 06:55 12:19 WBC 23.0 H RBC 2.74 L Hgb 7.1 L Hct 22.6 L MCV MCH 26 L RDW 20.3 H Plt Count 80 L Lymph % (Auto) Lymph # (Auto) Seg Neutrophils % Seg Neuts % (Manual) Lymphocytes % (Manual) Nucleated RBC % Seg Neutrophils # Man Lymphocytes # (Manual) PT INR APTT Fibrinogen D-Dimer Heparin Anti-Xa Level ABG pH POC ABG pCO2 POC ABG pO2 ABG O2 Saturation ABG Hemoglobin ABG Oxyhemoglobin ABG Sodium ABG Potassium ABG Chloride ABG Glucose Oxyhemoglobin Carboxyhemoglobin Sodium 149 H Potassium Chloride 115.8 H Carbon Dioxide BUN 45 H Creatinine Glucose 237 H POC Glucose 250 H Hemoglobin A1c Lactic Acid Calcium Phosphorus Magnesium 3.10 H Ferritin AST 88 H Alkaline Phosphatase 241 H Lactate Dehydrogenase Total Creatine Kinase CK-MB (CK-2) CK-MB (CK-2) Rel Index Troponin T C-Reactive Protein NT-Pro-B Natriuret Pep Total Protein 5.1 L Albumin 2.8 L Triglycerides LDL Cholesterol Direct HDL Cholesterol Arterial Blood Glucose Arterial Blood Ionized Calcium Coronavirus (PCR) Crossmatch 12/13/20 12/13/20 12/14/20 17:39 23:50 04:59 WBC RBC Hgb Hct MCV MCH RDW Plt Count Lymph % (Auto) Lymph # (Auto) Seg Neutrophils % Seg Neuts % (Manual) Lymphocytes % (Manual) Nucleated RBC % Seg Neutrophils # Man Lymphocytes # (Manual) PT INR APTT Fibrinogen D-Dimer Heparin Anti-Xa Level ABG pH POC ABG pCO2 POC ABG pO2 ABG O2 Saturation ABG Hemoglobin ABG Oxyhemoglobin ABG Sodium ABG Potassium ABG Chloride ABG Glucose Oxyhemoglobin Carboxyhemoglobin Sodium Potassium Chloride Carbon Dioxide BUN Creatinine Glucose POC Glucose 257 H 288 H 362 H Hemoglobin A1c Lactic Acid Calcium Phosphorus Magnesium Ferritin AST Alkaline Phosphatase Lactate Dehydrogenase Total Creatine Kinase CK-MB (CK-2) CK-MB (CK-2) Rel Index Troponin T C-Reactive Protein NT-Pro-B Natriuret Pep Total Protein Albumin Triglycerides LDL Cholesterol Direct HDL Cholesterol Arterial Blood Glucose Arterial Blood Ionized Calcium Coronavirus (PCR) Crossmatch 12/14/20 12/14/20 12/14/20 06:25 06:55 06:55 WBC 18.7 H RBC 2.27 L Hgb 5.9 L* Hct 19.6 L* MCV MCH 26 L RDW 20.7 H Plt Count 58 L Lymph % (Auto) Lymph # (Auto) Seg Neutrophils % Seg Neuts % (Manual) Lymphocytes % (Manual) Nucleated RBC % Seg Neutrophils # Man Lymphocytes # (Manual) PT 17.5 H INR 1.37 H APTT Fibrinogen 120 L* D-Dimer > 68330 H Heparin Anti-Xa Level ABG pH POC ABG pCO2 POC ABG pO2 ABG O2 Saturation 75.8 L ABG Hemoglobin 5.8 L ABG Oxyhemoglobin ABG Sodium ABG Potassium ABG Chloride ABG Glucose Oxyhemoglobin 73.5 L Carboxyhemoglobin Sodium Potassium Chloride Carbon Dioxide BUN Creatinine Glucose POC Glucose Hemoglobin A1c Lactic Acid Calcium Phosphorus Magnesium Ferritin AST Alkaline Phosphatase Lactate Dehydrogenase Total Creatine Kinase CK-MB (CK-2) CK-MB (CK-2) Rel Index Troponin T C-Reactive Protein NT-Pro-B Natriuret Pep Total Protein Albumin Triglycerides LDL Cholesterol Direct HDL Cholesterol Arterial Blood Glucose Arterial Blood Ionized Calcium Coronavirus (PCR) Crossmatch 0812/14/20 12/14/20 06:55 06:55 08:38 WBC RBC Hgb Hct MCV MCH RDW Plt Count Lymph % (Auto) Lymph # (Auto) Seg Neutrophils % Seg Neuts % (Manual) Lymphocytes % (Manual) Nucleated RBC % Seg Neutrophils # Man Lymphocytes # (Manual) PT INR APTT Fibrinogen D-Dimer Heparin Anti-Xa Level ABG pH POC ABG pCO2 POC ABG pO2 ABG O2 Saturation ABG Hemoglobin ABG Oxyhemoglobin ABG Sodium ABG Potassium ABG Chloride ABG Glucose Oxyhemoglobin Carboxyhemoglobin Sodium 147 H Potassium 5.3 H Chloride 116.7 H Carbon Dioxide BUN 55 H Creatinine Glucose 368 H POC Glucose Hemoglobin A1c Lactic Acid Calcium Phosphorus Magnesium Ferritin 398.2 H AST 86 H Alkaline Phosphatase 270 H Lactate Dehydrogenase 2448 H Total Creatine Kinase CK-MB (CK-2) CK-MB (CK-2) Rel Index Troponin T C-Reactive Protein 9.10 H NT-Pro-B Natriuret Pep Total Protein 5.2 L Albumin 2.7 L Triglycerides 327 H LDL Cholesterol Direct HDL Cholesterol Arterial Blood Glucose Arterial Blood Ionized Calcium Coronavirus (PCR) Crossmatch 12/14/20 12/14/20 12/14/20 11:42 14:20 17:04 WBC RBC Hgb Hct MCV MCH RDW Plt Count Lymph % (Auto) Lymph # (Auto) Seg Neutrophils % Seg Neuts % (Manual) Lymphocytes % (Manual) Nucleated RBC % Seg Neutrophils # Man Lymphocytes # (Manual) PT INR APTT Fibrinogen D-Dimer Heparin Anti-Xa Level ABG pH POC ABG pCO2 POC ABG pO2 ABG O2 Saturation ABG Hemoglobin ABG Oxyhemoglobin ABG Sodium ABG Potassium ABG Chloride ABG Glucose Oxyhemoglobin Carboxyhemoglobin Sodium Potassium Chloride Carbon Dioxide BUN Creatinine Glucose POC Glucose 454 H 506 H Hemoglobin A1c Lactic Acid Calcium Phosphorus Magnesium Ferritin AST Alkaline Phosphatase Lactate Dehydrogenase Total Creatine Kinase CK-MB (CK-2) CK-MB (CK-2) Rel Index Troponin T C-Reactive Protein NT-Pro-B Natriuret Pep Total Protein Albumin Triglycerides LDL Cholesterol Direct HDL Cholesterol Arterial Blood Glucose Arterial Blood Ionized Calcium Coronavirus (PCR) Crossmatch See Detail 12/14/20 12/14/20 12/15/20 17:05 21:16 02:15 WBC 19.4 H RBC 2.76 L Hgb 7.7 L Hct 23.6 L MCV MCH RDW 18.0 H Plt Count 31 L Lymph % (Auto) Lymph # (Auto) Seg Neutrophils % Seg Neuts % (Manual) Lymphocytes % (Manual) Nucleated RBC % Seg Neutrophils # Man Lymphocytes # (Manual) PT INR APTT Fibrinogen D-Dimer Heparin Anti-Xa Level ABG pH POC ABG pCO2 POC ABG pO2 ABG O2 Saturation ABG Hemoglobin ABG Oxyhemoglobin ABG Sodium ABG Potassium ABG Chloride ABG Glucose Oxyhemoglobin Carboxyhemoglobin Sodium Potassium Chloride Carbon Dioxide BUN Creatinine Glucose POC Glucose 524 H 483 H Hemoglobin A1c Lactic Acid Calcium Phosphorus Magnesium Ferritin AST Alkaline Phosphatase Lactate Dehydrogenase Total Creatine Kinase CK-MB (CK-2) CK-MB (CK-2) Rel Index Troponin T C-Reactive Protein NT-Pro-B Natriuret Pep Total Protein Albumin Triglycerides LDL Cholesterol Direct HDL Cholesterol Arterial Blood Glucose Arterial Blood Ionized Calcium Coronavirus (PCR) Crossmatch 12/15/20 12/15/20 12/15/20 03:05 03:26 05:10 WBC RBC Hgb Hct MCV MCH RDW Plt Count Lymph % (Auto) Lymph # (Auto) Seg Neutrophils % Seg Neuts % (Manual) Lymphocytes % (Manual) Nucleated RBC % Seg Neutrophils # Man Lymphocytes # (Manual) PT 17.8 H INR 1.40 H APTT Fibrinogen 143 L* D-Dimer Heparin Anti-Xa Level ABG pH 7.313 L POC ABG pCO2 POC ABG pO2 66.7 L ABG O2 Saturation ABG Hemoglobin 6.9 L ABG Oxyhemoglobin 89.3 L ABG Sodium ABG Potassium 6.3 H ABG Chloride 117.0 H ABG Glucose 693 H Oxyhemoglobin Carboxyhemoglobin 1.8 H Sodium Potassium Chloride Carbon Dioxide BUN Creatinine Glucose POC Glucose 517 H Hemoglobin A1c Lactic Acid Calcium Phosphorus Magnesium Ferritin AST Alkaline Phosphatase Lactate Dehydrogenase Total Creatine Kinase CK-MB (CK-2) CK-MB (CK-2) Rel Index Troponin T C-Reactive Protein NT-Pro-B Natriuret Pep Total Protein Albumin Triglycerides LDL Cholesterol Direct HDL Cholesterol Arterial Blood Glucose 693 H Arterial Blood Ionized Calcium Coronavirus (PCR) Crossmatch 12/15/20 12/15/20 12/15/20 05:10 05:46 11:37 WBC RBC Hgb Hct MCV MCH RDW Plt Count Lymph % (Auto) Lymph # (Auto) Seg Neutrophils % Seg Neuts % (Manual) Lymphocytes % (Manual) Nucleated RBC % Seg Neutrophils # Man Lymphocytes # (Manual) PT INR APTT Fibrinogen D-Dimer Heparin Anti-Xa Level ABG pH POC ABG pCO2 POC ABG pO2 ABG O2 Saturation ABG Hemoglobin ABG Oxyhemoglobin ABG Sodium ABG Potassium ABG Chloride ABG Glucose Oxyhemoglobin Carboxyhemoglobin Sodium 147 H Potassium 6.2 H* Chloride 116.7 H Carbon Dioxide BUN 82 H Creatinine 1.3 H Glucose 661 H* POC Glucose 471 H 547 H Hemoglobin A1c Lactic Acid Calcium 8.2 L Phosphorus Magnesium Ferritin AST 53 H Alkaline Phosphatase 298 H Lactate Dehydrogenase Total Creatine Kinase CK-MB (CK-2) CK-MB (CK-2) Rel Index Troponin T C-Reactive Protein NT-Pro-B Natriuret Pep Total Protein 4.2 L Albumin 2.1 L Triglycerides LDL Cholesterol Direct HDL Cholesterol Arterial Blood Glucose Arterial Blood Ionized Calcium Coronavirus (PCR) Crossmatch Chest x-ray: other (none today) Allied health notes reviewed: nursing
[2020-12-15] MEDS: VASOPRESSIN 20 UNIT in SODIUM CHLORIDE 0.9% 100 ML IV SCH (15:03)
--- NOTE | 2020-12-15 15:11 | Progress Note ---
Assessment and Plan Cultures: SARS CoV2 PCR: Positive 12/02/2020 blood culture: no growth A/P: 65-year-old female with diabetes, hypertension admitted with: #Shock, multifactorial, probably due to severe COVID, ?cardiogenic. No clear bacterial infection identified. #Bilateral pneumonia: Secondary to COVID-19. Severe disease. #Acute hypoxic respiratory failure: Secondary to above. Failed BiPAP, now on the vent. #Diabetes mellitus, uncontrolled: HbA1c 9.5 #ST elevation OR: Cardiology on board. #Bleeding, anemia Recs: -continue steroids, at least 10 days -Status post 5 days of remdesivir, s/p Actemra -Completed antibiotics. -Prognosis remains extremely poor Stanford Interiano MD [facility] ([facility] O: [phone] F: [phone] Subjective Date of service: 12/15/20 Principal diagnosis: Ac hypoxemic resp failure; COVID-19 infection; Pneumonia; ARDS; DM II; HTN Interval history: Afebrile over last 24 hours, white count 19.4 which is stable. Objective - Exam Narrative Exam: Physical exam deferred to reduce risk of transmission of COVID-19. Please refer to primary team's note. - Constitutional Vitals: Vital Signs Temp Pulse Resp BP Pulse Ox 97.9 F 79 24 106/35 98 12/15/20 09:29 12/15/20 14:15 12/15/20 14:15 12/15/20 14:15 12/15/20 14:15 Temperature -Last 24 Hours Temperature 97.9 F Temperature 98.8 F Temperature 98.6 F Temperature 99.1 F - Labs CBC & Chem 7: 12/15/20 02:15 12/15/20 05:10 Labs: Abnormal lab results 12/10/20 12/14/20 12/14/20 Range/Units 04:10 14:20 17:04 WBC (4.5-11.0) K/mm3 RBC (3.65-5.03) M/mm3 Hgb (10.1-14.3) gm/dl Hct (30.3-42.9) % RDW (13.2-15.2) % Plt Count (140-440) K/mm3 PT (12.2-14.9) Sec. INR (0.87-1.13) Fibrinogen (211-480) mg/dl ABG pH (7.320-7.450) POC ABG pO2 (83-108) mmHg ABG Hemoglobin (12.0-17.5) ABG Oxyhemoglobin (94-98) ABG Potassium (3.40-4.50) mmol/L ABG Chloride (98-107) mmol/L ABG Glucose (65-95) mg/dL Carboxyhemoglobin (0.5-1.5) Sodium (137-145) mmol/L Potassium (3.6-5.0) mmol/L Chloride (98-107) mmol/L BUN (7-17) mg/dL Creatinine (0.6-1.2) mg/dL Glucose (65-100) mg/dL POC Glucose 506 H (70-105) mg/dL Calcium (8.4-10.2) mg/dL AST (5-40) units/L Alkaline Phosphatase (35-129) units/L Total Protein (6.3-8.2) g/dL Albumin (3.9-5) g/dL Arterial Blood Glucose (65-95) mg/dL Crossmatch See Detail See Detail 12/14/20 12/14/20 12/15/20 Range/Units 17:05 21:16 02:15 WBC 19.4 H (4.5-11.0) K/mm3 RBC 2.76 L (3.65-5.03) M/mm3 Hgb 7.7 L (10.1-14.3) gm/dl Hct 23.6 L (30.3-42.9) % RDW 18.0 H (13.2-15.2) % Plt Count 31 L (140-440) K/mm3 PT (12.2-14.9) Sec. INR (0.87-1.13) Fibrinogen (211-480) mg/dl ABG pH (7.320-7.450) POC ABG pO2 (83-108) mmHg ABG Hemoglobin (12.0-17.5) ABG Oxyhemoglobin (94-98) ABG Potassium (3.40-4.50) mmol/L ABG Chloride (98-107) mmol/L ABG Glucose (65-95) mg/dL Carboxyhemoglobin (0.5-1.5) Sodium (137-145) mmol/L Potassium (3.6-5.0) mmol/L Chloride (98-107) mmol/L BUN (7-17) mg/dL Creatinine (0.6-1.2) mg/dL Glucose (65-100) mg/dL POC Glucose 524 H 483 H (70-105) mg/dL Calcium (8.4-10.2) mg/dL AST (5-40) units/L Alkaline Phosphatase (35-129) units/L Total Protein (6.3-8.2) g/dL Albumin (3.9-5) g/dL Arterial Blood Glucose (65-95) mg/dL Crossmatch 12/15/20 12/15/20 12/15/20 Range/Units 03:05 03:26 05:10 WBC (4.5-11.0) K/mm3 RBC (3.65-5.03) M/mm3 Hgb (10.1-14.3) gm/dl Hct (30.3-42.9) % RDW (13.2-15.2) % Plt Count (140-440) K/mm3 PT 17.8 H (12.2-14.9) Sec. INR 1.40 H (0.87-1.13) Fibrinogen 143 L* (211-480) mg/dl ABG pH 7.313 L (7.320-7.450) POC ABG pO2 66.7 L (83-108) mmHg ABG Hemoglobin 6.9 L (12.0-17.5) ABG Oxyhemoglobin 89.3 L (94-98) ABG Potassium 6.3 H (3.40-4.50) mmol/L ABG Chloride 117.0 H (98-107) mmol/L ABG Glucose 693 H (65-95) mg/dL Carboxyhemoglobin 1.8 H (0.5-1.5) Sodium (137-145) mmol/L Potassium (3.6-5.0) mmol/L Chloride (98-107) mmol/L BUN (7-17) mg/dL Creatinine (0.6-1.2) mg/dL Glucose (65-100) mg/dL POC Glucose 517 H (70-105) mg/dL Calcium (8.4-10.2) mg/dL AST (5-40) units/L Alkaline Phosphatase (35-129) units/L Total Protein (6.3-8.2) g/dL Albumin (3.9-5) g/dL Arterial Blood Glucose 693 H (65-95) mg/dL Crossmatch 12/15/20 12/15/20 12/15/20 Range/Units 05:10 05:46 11:37 WBC (4.5-11.0) K/mm3 RBC (3.65-5.03) M/mm3 Hgb (10.1-14.3) gm/dl Hct (30.3-42.9) % RDW (13.2-15.2) % Plt Count (140-440) K/mm3 PT (12.2-14.9) Sec. INR (0.87-1.13) Fibrinogen (211-480) mg/dl ABG pH (7.320-7.450) POC ABG pO2 (83-108) mmHg ABG Hemoglobin (12.0-17.5) ABG Oxyhemoglobin (94-98) ABG Potassium (3.40-4.50) mmol/L ABG Chloride (98-107) mmol/L ABG Glucose (65-95) mg/dL Carboxyhemoglobin (0.5-1.5) Sodium 147 H (137-145) mmol/L Potassium 6.2 H* (3.6-5.0) mmol/L Chloride 116.7 H (98-107) mmol/L BUN 82 H (7-17) mg/dL Creatinine 1.3 H (0.6-1.2) mg/dL Glucose 661 H* (65-100) mg/dL POC Glucose 471 H 547 H (70-105) mg/dL Calcium 8.2 L (8.4-10.2) mg/dL AST 53 H (5-40) units/L Alkaline Phosphatase 298 H (35-129) units/L Total Protein 4.2 L (6.3-8.2) g/dL Albumin 2.1 L (3.9-5) g/dL Arterial Blood Glucose (65-95) mg/dL Crossmatch
[2020-12-15] MEDS ORDERED: INSULIN LISPRO 100 UNIT/ML SUB-Q SCH (18:00)
[2020-12-15 18:12] LABS: Calcium 8.3 mg/dL (8.4-10.2)
[2020-12-16] MEDS: INSULIN LISPRO 100 UNIT/ML SUB-Q SCH ×10 (00:25→22:53)
[2020-12-16] MEDS: NORepinephrine/NS 8 MG-250 ML 8 MG/250 ML INFUS..BTL IV SCH ×3 (00:27→20:50)
[2020-12-16] MEDS: methylPREDNISolone Sod Succinate 125 MG/2 ML INJ IV SCH (01:20)
[2020-12-16] MEDS: fentaNYL DRIP Premix 2,000 MCG/100 ML BAG IV SCH ×3 (02:24→17:27)
[2020-12-16] MEDS: VASOPRESSIN 20 UNIT in SODIUM CHLORIDE 0.9% 100 ML IV SCH ×2 (02:27→14:27)
[2020-12-16] MEDS ORDERED: SODIUM BICARB 8.4% 50 MEQ/50 ML SYRINGE IV ONE (04:25)
[2020-12-16] MEDS ORDERED: EPINEPHrine 1 MG/10 ML SYRINGE ONE (04:25)
[2020-12-16 05:07] LABS: Mean Corpuscular HGB Conc 31 % (30-34); Mean Corpuscular Volume 87 fl (79-97); Red Blood Count 1.69 M/mm3 (3.65-5.03); Red Cell Distribution Width 18.6 % (13.2-15.2)
[2020-12-16 05:38] LABS: Hematocrit 14.8 % (30.3-42.9); Hemoglobin 4.6 gm/dl (10.1-14.3)
[2020-12-16] MEDS ORDERED: SODIUM CHLORIDE 0.9% 500 ML 500 ML IV ONE (05:39)
[2020-12-16] MEDS: FREE WATER PO SCH ×6 (06:23→22:53)
[2020-12-16] MEDS: METOCLOPRAMIDE 10 MG/2 ML INJ IV SCH (06:25)
[2020-12-16 06:43] LABS: Band Neutrophils # (Manual) 0.9 K/mm3; Total Cells Counted 100
[2020-12-16 07:19] LABS: Smudge Cells 3+
[2020-12-16 07:21] LABS: Hypochromasia 3+; Spherocytes 1+
[2020-12-16 07:22] LABS: Anisocytosis 2+; Ovalocytes 1+
[2020-12-16 07:26] LABS: Platelet Estimate Consistent w Auto; Schistocytes Few
[2020-12-16 07:30] LABS: Platelet Count 9 K/mm3 (140-440)
--- NOTE | 2020-12-16 08:45 | Hem/Onc Progress Note ---
Subjective Interval history: heme data review T 65yo AA woman with recent covid infection has been intubated in ICU-->hypoxia-->IV heparin for presumed PE has been receiving steroids, s/p tocilizumab right arm brachial DVT found, Left hand ischemia described received IV heparin-->oral bleeding-->RBC transfusions has had low fibrinogen has been on vasopressors still has bleeding around mouth, ET tube data reviewed below IMP: covid pneumonia, critically ill, on vasopressors persistent low fibrinogen likely due to liver dysfunction "DIC" is also possible REC: cryos transfusions and RBC transfusions daily plt transfusion today end of life discussion may be appropriate Laboratory Last Values WBC 18.2 K/mm3 (4.5-11.0) H 12/16/20 04:30 Hgb 4.6 gm/dl (10.1-14.3) L* D 12/16/20 04:30 Hct 14.8 % (30.3-42.9) L* D 12/16/20 04:30 Plt Count 9 K/mm3 (140-440) L* 12/16/20 04:30 PT 17.8 Sec. (12.2-14.9) H 12/15/20 05:10 INR 1.40 (0.87-1.13) H 12/15/20 05:10 APTT 29.2 Sec. (24.2-36.6) 12/11/20 15:45 Fibrinogen 76 mg/dl (211-480) L* 12/16/20 04:30 Creatinine 1.5 mg/dL (0.6-1.2) H 12/15/20 17:40 Lactic Acid 2.60 mmol/L (0.7-2.0) H* 12/16/20 04:30 AST 53 units/L (5-40) H 12/15/20 05:10 ALT 12 units/L (7-56) 12/15/20 05:10 Alkaline Phosphatase 298 units/L (35-129) H 12/15/20 05:10 Lactate Dehydrogenase 2448 units/L (91-180) H 12/14/20 06:55 Crossmatch See Detail 12/14/20 14:20 Objective - Constitutional Vitals: Last Vital Signs Temp 99.1 F 12/16/20 07:16 Pulse 118 H 12/16/20 08:15 Resp 13 12/16/20 08:15 BP 99/46 12/16/20 08:15 Pulse Ox 100 12/16/20 08:15 - Labs Lab Results: Laboratory Results - last 24 hr 12/14/20 12/15/20 12/15/20 14:20 11:37 17:40 WBC RBC Hgb Hct MCV MCH MCHC RDW Plt Count Add Manual Diff Total Counted Seg Neutrophils % Seg Neuts % (Manual) Band Neutrophils % Nucleated RBC % Seg Neutrophils # Man Band Neutrophils # Lymphocytes # (Manual) Abs React Lymphs (Man) Monocytes # (Manual) Eosinophils # (Manual) Basophils # (Manual) Metamyelocytes # Myelocytes # Promyelocytes # Blast Cells # WBC Morphology Hypersegmented Neuts Hyposegmented Neuts Hypogranular Neuts Smudge Cells Toxic Granulation Toxic Vacuolation Dohle Bodies Pelger-Huet Anomaly Minna Rods Platelet Estimate Clumped Platelets Plt Clumps, EDTA Large Platelets Giant Platelets Platelet Satelliting Plt Morphology Comment RBC Morphology Dimorphic RBCs Polychromasia Hypochromasia Poikilocytosis Anisocytosis Microcytosis Macrocytosis Spherocytes Pappenheimer Bodies Sickle Cells Target Cells Tear Drop Cells Ovalocytes Helmet Cells [place] Bodies [place] Rings Goyo Cells Bite Cells Crenated Cell Elliptocytes Acanthocytes (Spur) Rouleaux Hemoglobin C Crystals Schistocytes Malaria parasites Po Bodies Hem Pathologist Commnt Fibrinogen ABG pH POC ABG pCO2 POC ABG pO2 POC ABG HCO3 ABG O2 Saturation POC ABG Base Excess ABG Hemoglobin ABG Oxyhemoglobin ABG Methemoglobin ABG Sodium ABG Potassium ABG Chloride ABG Glucose Carboxyhemoglobin FiO2 % Sodium 150 H Potassium 5.9 H Chloride 117.8 H Carbon Dioxide 25 Anion Gap 13 BUN 93 H Creatinine 1.5 H Estimated GFR 42 BUN/Creatinine Ratio 62 Glucose 694 H* POC Glucose 547 H Lactic Acid Calcium 8.3 L Arterial Blood Glucose Arterial Blood Ionized Calcium Crossmatch See Detail 12/15/20 12/15/20 12/16/20 17:47 21:32 02:11 WBC RBC Hgb Hct MCV MCH MCHC RDW Plt Count Add Manual Diff Total Counted Seg Neutrophils % Seg Neuts % (Manual) Band Neutrophils % Nucleated RBC % Seg Neutrophils # Man Band Neutrophils # Lymphocytes # (Manual) Abs React Lymphs (Man) Monocytes # (Manual) Eosinophils # (Manual) Basophils # (Manual) Metamyelocytes # Myelocytes # Promyelocytes # Blast Cells # WBC Morphology Hypersegmented Neuts Hyposegmented Neuts Hypogranular Neuts Smudge Cells Toxic Granulation Toxic Vacuolation Dohle Bodies Pelger-Huet Anomaly Min[place] Rods Platelet Estimate Clumped Platelets Plt Clumps, EDTA Large Platelets Giant Platelets Platelet Satelliting Plt Morphology Comment RBC Morphology Dimorphic RBCs Polychromasia Hypochromasia Poikilocytosis Anisocytosis Microcytosis Macrocytosis Spherocytes Pappenheimer Bodies Sickle Cells Target Cells Tear Drop Cells Ovalocytes Helmet Cells [place] Bodies [place] Rings [place] Cells Bite Cells Crenated Cell Elliptocytes Acanthocytes (Spur) Rouleaux Hemoglobin C Crystals Schistocytes Malaria parasites Po Bodies Hem Pathologist Commnt Fibrinogen ABG pH POC ABG pCO2 POC ABG pO2 POC ABG HCO3 ABG O2 Saturation POC ABG Base Excess ABG Hemoglobin ABG Oxyhemoglobin ABG Methemoglobin ABG Sodium ABG Potassium ABG Chloride ABG Glucose Carboxyhemoglobin FiO2 % Sodium Potassium Chloride Carbon Dioxide Anion Gap BUN Creatinine Estimated GFR BUN/Creatinine Ratio Glucose POC Glucose 585 H 468 H 459 H Lactic Acid Calcium Arterial Blood Glucose Arterial Blood Ionized Calcium Crossmatch 12/16/20 12/16/20 12/16/20 04:00 04:30 04:30 WBC 18.2 H RBC 1.69 L Hgb 4.6 L* D Hct 14.8 L* D MCV 87 MCH 27 L MCHC 31 RDW 18.6 H Plt Count 9 L* Add Manual Diff Complete Total Counted 100 Seg Neutrophils % Flight Teacher Seg Neuts % (Manual) 95.0 H Band Neutrophils % 5.0 Nucleated RBC % 14.0 H Seg Neutrophils # Man 17.8 H Band Neutrophils # 0.9 Lymphocytes # (Manual) 0.0 L Abs React Lymphs (Man) 0.0 Monocytes # (Manual) 0.0 Eosinophils # (Manual) 0.0 Basophils # (Manual) 0.0 Metamyelocytes # 0.0 Myelocytes # 0.0 Promyelocytes # 62.0 Blast Cells # 0.0 WBC Morphology Not Reportable Hypersegmented Neuts Not Reportable Hyposegmented Neuts Not Reportable Hypogranular Neuts Not Reportable Smudge Cells 3+ Toxic Granulation Not Reportable Toxic Vacuolation Not Reportable Dohle Bodies Not Reportable Pelger-Huet Anomaly Not Reportable Minna Rods Not Reportable Platelet Estimate Consistent w auto Clumped Platelets Not Reportable Plt Clumps, EDTA Not Reportable Large Platelets Not Reportable Giant Platelets Not Reportable Platelet Satelliting Not Reportable Plt Morphology Comment Not Reportable RBC Morphology Not Reportable Dimorphic RBCs Not Reportable Polychromasia 1+ Hypochromasia 3+ Poikilocytosis Not Reportable Anisocytosis 2+ Microcytosis Not Reportable Macrocytosis Not Reportable Spherocytes 1+ Pappenheimer Bodies Not Reportable Sickle Cells Not Reportable Target Cells Not Reportable Tear Drop Cells Not Reportable Ovalocytes 1+ Helmet Cells Not Reportable [place] Bodies Not Reportable [place] Rings Not Reportable Goyo Cells Not Reportable Bite Cells Not Reportable Crenated Cell Not Reportable Elliptocytes Not Reportable Acanthocytes (Spur) Not Reportable Rouleaux Not Reportable Hemoglobin C Crystals Not Reportable Schistocytes Few Malaria parasites Not Reportable Po Bodies Not Reportable Hem Pathologist Commnt No Fibrinogen 76 L* ABG pH 7.345 POC ABG pCO2 43.1 POC ABG pO2 117.8 H POC ABG HCO3 23.0 ABG O2 Saturation 98.1 POC ABG Base Excess -2.4 ABG Hemoglobin 4.7 L ABG Oxyhemoglobin 96.0 ABG Methemoglobin 0 ABG Sodium 146.9 H ABG Potassium 5.2 H ABG Chloride 118.0 H ABG Glucose 582 H Carboxyhemoglobin 2.1 H FiO2 % 100.0 Sodium Potassium Chloride Carbon Dioxide Anion Gap BUN Creatinine Estimated GFR BUN/Creatinine Ratio Glucose POC Glucose Lactic Acid Calcium Arterial Blood Glucose 582 H Arterial Blood Ionized Calcium 5.0 Crossmatch 12/16/20 12/16/20 04:30 06:12 WBC RBC Hgb Hct MCV MCH MCHC RDW Plt Count Add Manual Diff Total Counted Seg Neutrophils % Seg Neuts % (Manual) Band Neutrophils % Nucleated RBC % Seg Neutrophils # Man Band Neutrophils # Lymphocytes # (Manual) Abs React Lymphs (Man) Monocytes # (Manual) Eosinophils # (Manual) Basophils # (Manual) Metamyelocytes # Myelocytes # Promyelocytes # Blast Cells # WBC Morphology Hypersegmented Neuts Hyposegmented Neuts Hypogranular Neuts Smudge Cells Toxic Granulation Toxic Vacuolation Dohle Bodies Pelger-Huet Anomaly Minna Rods Platelet Estimate Clumped Platelets Plt Clumps, EDTA Large Platelets Giant Platelets Platelet Satelliting Plt Morphology Comment RBC Morphology Dimorphic RBCs Polychromasia Hypochromasia Poikilocytosis Anisocytosis Microcytosis Macrocytosis Spherocytes Pappenheimer Bodies Sickle Cells Target Cells Tear Drop Cells Ovalocytes Helmet Cells [place] Bodies [place] Rings Goyo Cells Bite Cells Crenated Cell Elliptocytes Acanthocytes (Spur) Rouleaux Hemoglobin C Crystals Schistocytes Malaria parasites Po Bodies Hem Pathologist Commnt Fibrinogen ABG pH POC ABG pCO2 POC ABG pO2 POC ABG HCO3 ABG O2 Saturation POC ABG Base Excess ABG Hemoglobin ABG Oxyhemoglobin ABG Methemoglobin ABG Sodium ABG Potassium ABG Chloride ABG Glucose Carboxyhemoglobin FiO2 % Sodium Potassium Chloride Carbon Dioxide Anion Gap BUN Creatinine Estimated GFR BUN/Creatinine Ratio Glucose POC Glucose 440 H Lactic Acid 2.60 H* Calcium Arterial Blood Glucose Arterial Blood Ionized Calcium Crossmatch Medications & Allergies - Medications Allergies/Adverse Reactions: Allergies shellfish derived Allergy (Verified 12/02/20 03:37) Unknown Home Medications: Home Medications Medication Instructions Recorded Confirmed Last Taken Type [id number] 334-134-5 mg Tab 3 mg PO DAILY 12/03/20 12/03/20 12/02/20 History Iron 65 mg PO DAILY 12/03/20 12/03/20 12/02/20 History Lisinopril/Hydrochlorothiazide 20 mg PO DAILY 12/03/20 12/03/20 Unknown History Metformin HCl [metFORMIN] 1,000 mg PO BID 12/03/20 12/03/20 12/02/20 History Simvastatin 40 mg PO DAILY 12/03/20 12/03/20 Unknown History glipiZIDE 10 mg PO DAILY 12/03/20 12/03/20 Unknown History Active Medications: Generic Name Dose Route Start Last Admin Trade Name Freq PRN Reason Stop Dose Admin Acetaminophen 650 mg 12/02/20 05:09 12/12/20 18:19 Acetaminophen 325 Mg Tab PO 650 mg Q4H PRN Administration Pain MILD(1-3)/Fever >100.5/LARA Albuterol 2.5 mg 12/02/20 05:09 Albuterol 2.5 Mg/3 Ml Nebu IH Q3HRT PRN Shortness Of Breath Lipase/Protease/Amylase 1 each 12/09/20 10:32 Lipase 10,500/Protease 25,000/Amylase 43,750 (Units) Dr Cap FEEDTUBE PRN PRN For Clogged Feeding Tube Ascorbic Acid 500 mg 12/03/20 22:00 12/15/20 21:56 Ascorbic Acid 500 Mg Tab PO 500 mg BID AZAEL Administration Aspirin 81 mg 12/08/20 13:00 12/15/20 09:46 Aspirin 81 Mg Tab Chew PO 81 mg QDAY AZAEL Administration Atorvastatin Calcium 40 mg 12/08/20 22:00 12/15/20 21:56 Atorvastatin 40 Mg Tab PO 40 mg QHS AZAEL Administration Cholecalciferol 5,000 unit 12/02/20 10:00 12/15/20 09:46 Cholecalciferol (Vit D3) 5,000 Unit Tab PO 5,000 unit DAILY AZAEL Administration Clopidogrel Bisulfate 75 mg 12/09/20 10:00 12/15/20 09:47 Clopidogrel 75 Mg Tab PO 75 mg QDAY AZAEL Administration Dextrose 50 ml 12/02/20 05:09 12/05/20 08:09 Dextrose 50% In Water (25gm) 50 Ml Syringe IV 50 ml Q30MIN PRN Administration Hypoglycemia Protocol Docusate Sodium 100 mg 12/14/20 10:00 12/15/20 21:56 Docusate Sodium 100 Mg/10 Ml Oral Liqd FEEDTUBE Not Given BID AZAEL Fentanyl 50 mcg 12/08/20 15:13 Fentanyl 100 Mcg/2 Ml Inj IV Q10MIN PRN ANALGESIA Hydrophilic Ointment 1 applic 12/08/20 15:56 Lip Therapy Vaseline TP Q2HR PRN Dry Lips Fentanyl Citrate 2,000 mcg in 100 mls @ 3.243 mls/hr 12/08/20 16:00 12/16/20 02:24 Fentanyl Drip Premix IV 4 mcg/kg/hr TITR AZAEL 12.973 mls/hr Administration Protocol 1 MCG/KG/HR NORepinephrine/NS 8 MG-250 ML 8 mg in 250 mls @ 3.75 mls/hr 12/08/20 16:00 12/16/20 00:27 Norepinephrine/Ns 8 Mg-250 Ml (Double Conc) IV 8 mcg/min TITRATE AZAEL 15 mls/hr Administration Protocol 2 MCG/MIN Sodium Chloride 500 mls @ 1 mls/hr 12/08/20 17:19 12/13/20 14:10 Nacl 0.9% 500 Ml IV 250 mls/hr DIRECT PRN Administration ARTERIAL LINE FLUSH Vasopressin 20 unit/ Sodium 101 mls @ 9.09 mls/hr 12/10/20 04:00 12/16/20 02:27 Chloride IV 0.03 units/min TITR AZAEL 9.09 mls/hr Administration Protocol 0.03 UNITS/MIN Diltiazem HCl 100 mg in 100 mls @ 5 mls/hr 12/14/20 11:00 12/15/20 05:44 Cardizem/D5w 100mg/100ml IV 10 mg/hr TITR AZAEL 10 mls/hr Administration Protocol 5 MG/HR Midazolam HCl 100 mg/ Sodium 100 mls @ 1 mls/hr 12/15/20 13:00 12/15/20 13:02 Chloride IV 2 mg/hr TITR AZAEL 2 mls/hr Administration Protocol 1 MG/HR Insulin Glargine 25 units 12/14/20 18:00 12/15/20 21:55 Insulin Glargine 100 Units/Ml SUB-Q 25 units BID AZAEL Administration Insulin Human Lispro 0 unit 12/14/20 18:00 12/16/20 06:21 Insulin Lispro 100 Unit/Ml SUB-Q 10 unit Q4H AZAEL Administration Protocol Insulin Human Lispro 10 unit 12/15/20 18:00 12/16/20 06:21 Insulin Lispro 100 Unit/Ml SUB-Q 10 unit Q6HR AZAEL Administration Methylprednisolone Sodium Succinate 60 mg 12/13/20 11:00 12/16/20 01:20 Methylprednisolone Sod Succinate 125 Mg/2 Ml Inj IV 12/16/20 10:59 60 mg Q12H AZAEL Administration Metoclopramide HCl 5 mg 12/11/20 12:00 12/16/20 06:25 Metoclopramide 10 Mg/2 Ml Inj IV Not Given Q6H AZAEL Midazolam HCl 2 mg 12/15/20 12:38 Midazolam 2 Mg/2 Ml Inj IV Q10MIN PRN Sedation Multi-Ingred Cream/Lotion/Oil/Oint 1 applic 12/08/20 15:56 Mineral Oil/Petrolatum, White Ophth Oint 3.5 Gm OU Q4HR PRN Dry Eye(s) Ondansetron HCl 4 mg 12/02/20 05:09 Ondansetron 4 Mg/2 Ml Inj IV Q6H PRN Nausea And Vomiting Pantoprazole Sodium 40 mg 12/13/20 10:00 12/15/20 21:55 Pantoprazole 40 Mg Inj IV 40 mg BID AZAEL Administration Senna/Docusate Sodium 1 tab 12/08/20 22:00 12/15/20 21:59 Sennosides/Docusate Sodium 8.6/50 Mg Tab FEEDTUBE Not Given BID AZAEL Simple Syrup 30 ml 12/09/20 10:32 Simple Syrup 15 Ml FEEDTUBE PRN PRN Hypoglycemia Sodium Bicarbonate 325 mg 12/09/20 10:32 Sodium Bicarbonate 325 Mg Tab FEEDTUBE PRN PRN For Clogged Feeding Tube Sodium Chloride 10 ml 12/02/20 10:00 12/15/20 21:59 Sodium Chloride 0.9% 10 Ml Flush Syringe IV 10 ml BID AZAEL Administration Sodium Chloride 10 ml 12/02/20 05:09 Sodium Chloride 0.9% 10 Ml Flush Syringe IV PRN PRN LINE FLUSH Zinc Sulfate 220 mg 12/02/20 10:00 12/15/20 09:47 Zinc Sulfate 220 Mg Cap PO 220 mg QDAY AZAEL Administration
[2020-12-16] MEDS ORDERED: SODIUM CHLORIDE 0.9% 500 ML 500 ML IV SCH (09:00)
[2020-12-16] MEDS: SENNOSIDES/DOCUSATE SODIUM 8.6/50 MG TAB FEEDTUBE SCH ×2 (09:13→22:50)
[2020-12-16] MEDS: CLOPIDOGREL 75 MG TAB PO SCH (09:13)
[2020-12-16] MEDS: PANTOPRAZOLE 40 MG INJ IV SCH ×2 (09:13→22:50)
[2020-12-16] MEDS: CHOLECALCIFEROL (VIT D3) 5,000 UNIT TAB PO SCH (09:13)
[2020-12-16] MEDS: ASPIRIN 81 MG TAB CHEW PO SCH (09:13)
[2020-12-16] MEDS: ASCORBIC ACID 500 MG TAB PO SCH ×2 (09:13→22:50)
[2020-12-16] MEDS: DOCUSATE SODIUM 100 MG/10 ML ORAL LIQD FEEDTUBE SCH ×2 (09:13→22:50)
[2020-12-16] MEDS: ZINC SULFATE 220 MG CAP PO SCH (09:13)
[2020-12-16] MEDS: INSULIN GLARGINE 100 UNITS/ML SUB-Q SCH (09:17)
[2020-12-16] MEDS ORDERED: SODIUM CHLORIDE 0.9% 500 ML 500 ML IV NR (10:12)
--- NOTE | 2020-12-16 10:20 | Progress Note ---
<CHALO CARPIO - Last Filed: 12/16/20 10:16> Assessment and Plan Abnormal EKG with inferior ST elevation during hospital course hyperdynamic LVEF 65-70% however normal wall motion on echo Patient is not a candidate for invasive cardiac procedures due to respiratory failure and severe COVID 19 pneumonia. Paroxysmal atrial fibrillation spontaneously reverted to SR; on diltiazem for suppression. COVID 19 pneumonia Acute respiratory failure intubated on the vent Anemia/Thrombocytopenia Hypertension now hypotensive Diabetes Plavix and aspirin has been discontinued due to severe anemia and thrombocytopenia. Prognosis is guarded. Subjective Date of service: 12/16/20 Principal diagnosis: Ac hypoxemic resp failure; COVID-19 infection; Pneumonia; ARDS; DM II; HTN Interval history: Patient remains intubated and on pressors for support. Labs shows severe anemia and thrombocytopenia. Objective Vital Signs Temp Pulse Pulse Resp BP Pulse Ox 12/16/20 10:00 114 H 24 83/44 100 12/16/20 09:46 114 H 14 91/40 100 12/16/20 09:30 114 H 12 99/39 100 12/16/20 09:27 99.5 F 12/16/20 09:15 113 H 14 87/40 100 12/16/20 09:00 115 H 13 104/38 100 12/16/20 08:45 117 H 12 93/42 100 12/16/20 08:30 116 H 14 95/48 100 12/16/20 08:15 118 H 13 99/46 100 12/16/20 08:00 119 H 12 99/52 100 12/16/20 07:49 118 H 12/16/20 07:45 119 H 13 108/44 100 12/16/20 07:30 118 H 13 102/51 99 12/16/20 07:16 99.1 F 117 H 13 109/53 98 12/16/20 07:00 115 H 13 106/66 98 12/16/20 06:45 114 H 13 104/41 99 12/16/20 06:30 112 H 13 101/58 98 12/16/20 06:15 113 H 14 104/62 99 12/16/20 06:00 109 H 14 101/42 100 12/16/20 05:45 107 H 19 107/36 100 12/16/20 05:30 109 H 16 135/66 89 12/16/20 05:15 101 H 22 113/52 100 12/16/20 05:00 103 H 16 116/46 100 12/16/20 04:45 105 H 20 123/44 100 12/16/20 04:32 91 H 21 85 12/16/20 04:30 98 H 23 98/44 100 12/16/20 04:15 92 H 23 98/44 100 12/16/20 04:00 98.6 F 89 20 102/39 100 12/16/20 03:45 91 H 23 105/41 100 12/16/20 03:30 88 21 105/35 100 12/16/20 03:24 88 108/31 100 12/16/20 03:15 88 24 108/31 100 12/16/20 03:00 88 22 99/29 100 12/16/20 02:45 85 16 101/31 100 12/16/20 02:30 91 H 14 115/41 100 12/16/20 02:15 88 19 110/28 100 12/16/20 02:00 89 18 111/36 100 12/16/20 01:45 90 18 105/40 100 12/16/20 01:30 86 20 97/34 100 12/16/20 01:15 86 20 104/42 100 12/16/20 01:00 85 20 111/51 100 12/16/20 00:45 84 20 103/52 100 12/16/20 00:30 83 23 109/46 100 12/16/20 00:15 84 18 101/57 100 12/16/20 00:12 100 12/16/20 00:00 98.1 F 81 24 119/38 100 12/15/20 23:46 88 24 103/33 100 12/15/20 23:30 82 22 108/48 100 12/15/20 23:15 82 18 97/46 100 12/15/20 23:00 80 25 H 86/33 100 12/15/20 22:45 80 24 122/29 100 12/15/20 22:30 80 20 98/32 100 12/15/20 22:16 83 24 86/33 100 12/15/20 22:00 87 24 109/34 100 12/15/20 21:45 92 H 17 109/47 91 12/15/20 21:30 84 22 115/56 100 12/15/20 21:15 84 24 103/36 100 12/15/20 21:00 83 80 25 H 107/36 100 12/15/20 20:45 82 21 107/37 100 12/15/20 20:30 81 19 103/45 100 12/15/20 20:15 74 22 115/43 100 12/15/20 20:05 85 100/44 100 12/15/20 20:00 97.0 F L 84 19 100/44 100 12/15/20 19:45 83 19 113/37 100 12/15/20 19:30 81 23 107/34 100 12/15/20 19:15 82 25 H 113/31 100 12/15/20 19:08 81 25 H 106/34 100 12/15/20 19:00 81 21 106/34 100 12/15/20 18:59 81 20 119/35 100 12/15/20 18:45 83 16 119/35 100 12/15/20 18:42 81 22 110/56 100 12/15/20 18:30 82 25 H 107/38 100 12/15/20 18:15 80 23 102/35 100 12/15/20 18:00 81 21 103/32 100 12/15/20 17:45 83 22 113/29 100 12/15/20 17:31 88 127/36 100 12/15/20 17:30 82 20 127/36 100 12/15/20 17:16 83 25 H 110/56 12/15/20 17:01 110/56 12/15/20 16:45 79 23 120/47 97 12/15/20 16:30 77 24 110/38 99 12/15/20 16:15 76 24 101/35 98 12/15/20 16:00 97.2 F L 75 76 22 101/39 98 12/15/20 15:45 74 24 120/42 98 12/15/20 15:30 75 22 107/40 98 12/15/20 15:15 75 24 119/42 99 12/15/20 15:00 75 22 115/43 98 12/15/20 14:45 79 26 H 110/40 97 12/15/20 14:30 78 25 H 110/38 98 12/15/20 14:15 79 24 106/35 98 12/15/20 14:00 82 24 105/34 99 12/15/20 13:45 83 24 100/38 96 12/15/20 13:30 79 25 H 97/36 100 12/15/20 13:16 81 25 H 99/33 49 L 12/15/20 13:00 77 17 119/43 100 12/15/20 12:45 74 20 118/40 100 12/15/20 12:41 76 110/43 100 12/15/20 12:30 77 24 110/43 100 12/15/20 12:15 74 74 24 101/37 100 12/15/20 12:00 98.4 F 73 21 113/38 100 12/15/20 11:45 73 24 99/36 100 12/15/20 11:30 74 20 105/43 100 12/15/20 11:15 73 24 99/32 100 12/15/20 11:00 71 22 97/32 100 12/15/20 10:45 75 21 106/38 100 12/15/20 10:30 69 24 97/33 100 - Physical Examination Narrative exam: Deferred due to isolation protocol. General: Other (ON THE VENT) Cardiac: Positive: Tachycardia Neuro: Positive: Other (Patient is intubated and sedated) - Labs and Meds CBC 12/16/20 Range/Units 04:30 WBC 18.2 H (4.5-11.0) K/mm3 RBC 1.69 L (3.65-5.03) M/mm3 Hgb 4.6 L* D (10.1-14.3) gm/dl Hct 14.8 L* D (30.3-42.9) % Plt Count 9 L* (140-440) K/mm3 Comprehensive Metabolic Panel 12/15/20 Range/Units 17:40 Sodium 150 H (137-145) mmol/L Potassium 5.9 H (3.6-5.0) mmol/L Chloride 117.8 H (98-107) mmol/L Carbon Dioxide 25 (22-30) mmol/L BUN 93 H (7-17) mg/dL Creatinine 1.5 H (0.6-1.2) mg/dL Glucose 694 H* (65-100) mg/dL Calcium 8.3 L (8.4-10.2) mg/dL - Allied health notes Allied health notes reviewed: nursing <LENO PERRY - Last Filed: 12/17/20 11:29> Assessment and Plan - Patient Problems (1) Acute myocardial infarction Status: Acute (2) Pneumonia due to COVID-19 virus Status: Acute (3) A-fib Status: Acute Subjective Interval history: I SAW THIS PT & AGREE WITH THE Dx & Tx PLAN. Objective Vital Signs Temp Pulse Pulse Resp BP Pulse Ox 12/16/20 23:54 0 L 12/16/20 23:15 91 H 23 146/46 100 12/16/20 23:00 92 H 22 139/46 99 12/16/20 22:45 90 21 141/44 98 12/16/20 22:30 97.3 F L 91 H 22 136/50 100 12/16/20 22:15 95 H 16 136/50 100 12/16/20 22:00 97.3 F L 89 20 128/43 100 12/16/20 21:45 90 22 130/52 100 12/16/20 21:30 96.6 F L 90 21 124/44 100 12/16/20 21:15 91 H 20 131/41 99 12/16/20 21:00 93 H 19 110/47 99 12/16/20 20:46 95.5 F L 89 21 124/44 100 12/16/20 20:45 96 H 14 113/34 98 12/16/20 20:30 92 H 92 H 13 115/38 99 12/16/20 20:22 97.5 F L 93 H 22 107/35 100 12/16/20 20:18 94 H 107/35 100 12/16/20 20:17 92 H 12/16/20 20:15 93 H 13 107/35 97 12/16/20 20:00 98.0 F 96 H 11 L 118/32 99 12/16/20 19:45 96 H 11 L 110/29 100 12/16/20 19:30 98 H 12 101/32 99 12/16/20 19:15 98 H 11 L 111/31 99 12/16/20 19:00 99 H 11 L 109/29 97 12/16/20 18:58 97.7 F 95 H 14 113/34 98 12/16/20 18:54 97.0 F L 99 H 13 101/32 95 12/16/20 18:45 100 H 16 107/37 98 12/16/20 18:32 101 H 16 102/40 99 12/16/20 18:30 101 H 15 102/40 99 12/16/20 18:25 101 H 15 99/36 99 12/16/20 18:15 97.6 F 104 H 23 99/36 97 12/16/20 18:00 98 F 105 H 9 L 84/48 100 12/16/20 17:53 106 H 75/27 99 12/16/20 17:45 98.3 F 107 H 12 79/29 99 12/16/20 17:30 106 H 14 88/23 99 12/16/20 17:20 71 16 80/21 100 12/16/20 17:10 65 14 77/21 99 12/16/20 17:00 102 H 16 77/21 98 12/16/20 16:50 107 H 16 76/24 99 12/16/20 16:40 106 H 15 80/22 99 12/16/20 16:30 103 H 15 80/22 100 12/16/20 16:20 101 H 13 72/24 99 12/16/20 16:14 100 H 16 100 12/16/20 16:09 100 H 12/16/20 16:00 98.2 F 101 H 13 72/24 100 12/16/20 15:45 101 H 14 72/24 100 12/16/20 15:30 103 H 15 76/21 100 12/16/20 15:16 105 H 13 71/22 100 12/16/20 15:00 105 H 15 76/21 100 12/16/20 14:46 106 H 13 82/22 100 12/16/20 14:30 106 H 15 65/23 100 12/16/20 14:15 107 H 16 69/27 100 12/16/20 14:00 108 H 12 63/22 100 12/16/20 13:45 108 H 14 69/26 100 12/16/20 13:30 109 H 17 79/21 100 12/16/20 13:15 110 H 18 86/29 100 12/16/20 13:00 98.8 F 110 H 18 53/35 100 12/16/20 12:45 111 H 15 80/30 100 12/16/20 12:30 110 H 16 64/40 100 12/16/20 12:15 111 H 15 84/32 100 12/16/20 12:00 111 H 17 69/43 12/16/20 11:45 113 H 13 75/32 12/16/20 11:30 112 H 18 85/36 12/16/20 11:29 112 H 76/39 100
--- NOTE | 2020-12-16 13:13 | Progress Note ---
Assessment and Plan Acute hypoxemic respiratory failure COVID-19 infection STEMI Bilateral pneumonia Acute respiratory distress syndrome DM II Hypertension Elevated serum inflammatory markers to include LDH, ferritin and D-dimers Anemia - discontinued Propofol re: shira - stopped Cardizem - add Versed for RASS -2 to -3 - reduced peep to 12 - will accept O2 sats > 88% to avoid increasing peep and oxygen toxicity at higher FiO2's - get lactic acid level and trend (WNL today) - nephrology consult placed - s/p Calcium, Kayexalate, bicarbonate and Insulin - follow HIT assay (pending) - appreciate vascular surgery input - supportive transfusions for serum Hb < 7.0 - continue to wean vasopressors for target MAP > 65 mmHg - aggressive medical therapy for STEMI otherwise per cardiology - continue daily SAT's & SBT assessment as tolerated - VAP bundle addressed - continue care as below otherwise; - continue bronchodilators with pulmonary hygiene per RT - continue accuchecks with glycemic control per SSI (While critically ill target blood glucose of 140-180 mg/dL; avoid hypoglycemia) - avoid nephrotoxins, renally dose all medications - continue to avoid benzodiazepine's, reduce the possibility of delirium - completed Anti-infective's per ID rec's - prn analgesia per pain score - Maintenance of sleep-wake cycle, avoid delirium - G.I. & VTE prophylaxis - PT/OT/ROM exercises - mobility protocols for pressure ulcer prophylaxis - Monitor hemodynamics closely - continue other care per attending / other consultants COVID SPECIFIC INTERVENTIONS - Remdesivir as per ID/Pulmonary developed protocols (receiving) - continue systemic steroids for severe COVID-19 infection (Decadron) - follow repeat COVID tests results - zinc and vitamin C supplementation - Monitor inflammatory markers per facility protocol - ferritin, Ddimer, CRP - therapeutic anticoagulation per system Protocol based on d-dimer and clinical considerations (VTE Prophylaxis) - Continue contact and airborne isolation .... Re-evaluate in am & prn CONDITION: CRITICAL PROGNOSIS: GRAVE CODE STATUS: FULL CODE The high probability of a clinically significant, sudden or life-threatening deterioration of the [respiratory, cardiovascular & neurologic] system(s) required my full and direct attention, intervention and personal management. The aggregate critical care time was [32] minutes without overlap. Time includes spent on; [x] Data Review and interpretation [x] Patient assessment and monitoring of vital signs [x] Documentation [x] Medication orders and management Subjective Date of service: 12/16/20 Principal diagnosis: Ac hypoxemic resp failure; COVID-19 infection; Pneumonia; ARDS; DM II; HTN Interval history: Patient is seen today for: Acute hypoxemic respiratory failure; COVID-19 infection; Pneumonia; ARDS; DM II; HTN Seen and examined at bedside; 24hour events reviewed; nursing and respiratory care staff consulted; no adverse overnight events reported to me; resting in bed; Objective Vital Signs - 12hr 12/16/20 12/16/20 12/16/20 01:15 01:30 01:45 Temperature Pulse Rate 86 86 90 Pulse Rate [ From Monitor] Respiratory 20 20 18 Rate Blood Pressure 104/42 97/34 105/40 O2 Sat by Pulse 100 100 100 Oximetry 12/16/20 12/16/20 12/16/20 02:00 02:15 02:30 Temperature Pulse Rate 89 88 91 H Pulse Rate [ From Monitor] Respiratory 18 19 14 Rate Blood Pressure 111/36 110/28 115/41 O2 Sat by Pulse 100 100 100 Oximetry 12/16/20 12/16/20 12/16/20 02:45 03:00 03:15 Temperature Pulse Rate 85 88 88 Pulse Rate [ From Monitor] Respiratory 16 22 24 Rate Blood Pressure 101/31 99/29 108/31 O2 Sat by Pulse 100 100 100 Oximetry 12/16/20 12/16/20 12/16/20 03:24 03:30 03:45 Temperature Pulse Rate 88 88 91 H Pulse Rate [ From Monitor] Respiratory 21 23 Rate Blood Pressure 108/31 105/35 105/41 O2 Sat by Pulse 100 100 100 Oximetry 12/16/20 12/16/20 12/16/20 04:00 04:15 04:30 Temperature 98.6 F Pulse Rate 89 92 H 98 H Pulse Rate [ From Monitor] Respiratory 20 23 23 Rate Blood Pressure 102/39 98/44 98/44 O2 Sat by Pulse 100 100 100 Oximetry 12/16/20 12/16/20 12/16/20 04:32 04:45 05:00 Temperature Pulse Rate 105 H 103 H Pulse Rate [ 91 H From Monitor] Respiratory 21 20 16 Rate Blood Pressure 123/44 116/46 O2 Sat by Pulse 85 100 100 Oximetry 12/16/20 12/16/20 12/16/20 05:15 05:30 05:45 Temperature Pulse Rate 101 H 109 H 107 H Pulse Rate [ From Monitor] Respiratory 22 16 19 Rate Blood Pressure 113/52 135/66 107/36 O2 Sat by Pulse 100 89 100 Oximetry 12/16/20 12/16/20 12/16/20 06:00 06:15 06:30 Temperature Pulse Rate 109 H 113 H 112 H Pulse Rate [ From Monitor] Respiratory 14 14 13 Rate Blood Pressure 101/42 104/62 101/58 O2 Sat by Pulse 100 99 98 Oximetry 12/16/20 12/16/20 12/16/20 06:45 07:00 07:16 Temperature 99.1 F Pulse Rate 114 H 115 H 117 H Pulse Rate [ From Monitor] Respiratory 13 13 13 Rate Blood Pressure 104/41 106/66 109/53 O2 Sat by Pulse 99 98 98 Oximetry 12/16/20 12/16/20 12/16/20 07:30 07:45 07:49 Temperature Pulse Rate 118 H 119 H 118 H Pulse Rate [ From Monitor] Respiratory 13 13 Rate Blood Pressure 102/51 108/44 O2 Sat by Pulse 99 100 Oximetry 12/16/20 12/16/20 12/16/20 08:00 08:15 08:30 Temperature Pulse Rate 119 H 118 H 116 H Pulse Rate [ From Monitor] Respiratory 12 13 14 Rate Blood Pressure 99/52 99/46 95/48 O2 Sat by Pulse 100 100 100 Oximetry 12/16/20 12/16/20 12/16/20 08:45 09:00 09:15 Temperature Pulse Rate 117 H 115 H 113 H Pulse Rate [ From Monitor] Respiratory 12 13 14 Rate Blood Pressure 93/42 104/38 87/40 O2 Sat by Pulse 100 100 100 Oximetry 12/16/20 12/16/20 12/16/20 09:27 09:30 09:46 Temperature 99.5 F Pulse Rate 114 H 114 H Pulse Rate [ From Monitor] Respiratory 12 14 Rate Blood Pressure 99/39 91/40 O2 Sat by Pulse 100 100 Oximetry 12/16/20 12/16/20 12/16/20 10:00 10:15 10:30 Temperature Pulse Rate 114 H 113 H 114 H Pulse Rate [ From Monitor] Respiratory 24 26 H 25 H Rate Blood Pressure 83/44 80/38 83/35 O2 Sat by Pulse 100 100 100 Oximetry 12/16/20 12/16/20 12/16/20 10:45 11:00 11:16 Temperature Pulse Rate 112 H 113 H 111 H Pulse Rate [ From Monitor] Respiratory 23 25 H 18 Rate Blood Pressure 81/38 78/36 76/39 O2 Sat by Pulse 100 100 100 Oximetry 12/16/20 12/16/20 12/16/20 11:28 11:29 11:30 Temperature 99.5 F Pulse Rate 112 H 112 H Pulse Rate [ From Monitor] Respiratory 18 Rate Blood Pressure 76/39 85/36 O2 Sat by Pulse 100 100 Oximetry 12/16/20 12/16/20 12/16/20 11:45 12:00 12:15 Temperature Pulse Rate 113 H 111 H 111 H Pulse Rate [ From Monitor] Respiratory 13 17 15 Rate Blood Pressure 75/32 69/43 84/32 O2 Sat by Pulse 100 100 100 Oximetry 12/16/20 12/16/20 12/16/20 12:30 12:45 13:00 Temperature 98.8 F Pulse Rate 110 H 111 H 110 H Pulse Rate [ From Monitor] Respiratory 16 15 18 Rate Blood Pressure 64/40 80/30 53/35 O2 Sat by Pulse 100 100 100 Oximetry Constitutional: appears uncomfortable, other (elderly female with mildly increased respiratory effort at rest on MVS) Eyes: non-icteric ENT: oropharynx moist, other (ETT 23 cm JENNIFER) Neck: supple, no lymphadenopathy, no JVD Effort: mildly labored Ascultation: Bilateral: rhonchi Percussion: Bilateral: not dull Cardiovascular: regular rate and rhythm Gastrointestinal: normoactive bowel sounds, soft, non-tender, non-distended Integumentary: normal Extremities: no cyanosis, no edema, pulses normal, other (+ digital ischemia and cyanosis to hands and feet) Neurologic: non-focal exam (grossly), pupils equal and round, unable to assess, other (sedated) Psychiatric: other (unable to assess re: AMS) CBC and BMP: 12/16/20 04:30 12/15/20 17:40 ABG, PT/INR, D-dimer: ABG ABG pH 7.345 (7.320-7.450) 12/16/20 04:00 POC ABG pCO2 43.1 mmHg (32.0-48.0) 12/16/20 04:00 ABG pCO2 Not Reportable 12/14/20 06:25 POC ABG pO2 117.8 mmHg (83-108) H 12/16/20 04:00 ABG pO2 Not Reportable 12/14/20 06:25 POC ABG HCO3 23.0 12/16/20 04:00 ABG O2 Saturation 98.1 (0-100) 12/16/20 04:00 PT/INR, D-dimer PT 17.8 Sec. (12.2-14.9) H 12/15/20 05:10 INR 1.40 (0.87-1.13) H 12/15/20 05:10 D-Dimer > 61416 ng/mlDDU (0-234) H 12/14/20 06:55 Abnormal lab findings: Abnormal Labs 12/02/20 12/02/20 12/02/20 03:58 03:58 03:58 WBC RBC 3.57 L Hgb 8.9 L Hct 27.2 L MCV 76 L MCH 25 L RDW 17.6 H Plt Count Lymph % (Auto) 6.7 L Lymph # (Auto) 0.3 L Seg Neutrophils % 87.7 H Seg Neuts % (Manual) Lymphocytes % (Manual) Nucleated RBC % Seg Neutrophils # Man Lymphocytes # (Manual) PT INR APTT Fibrinogen D-Dimer 1559.33 H Heparin Anti-Xa Level ABG pH POC ABG pCO2 POC ABG pO2 ABG O2 Saturation ABG Hemoglobin ABG Oxyhemoglobin ABG Sodium ABG Potassium ABG Chloride ABG Glucose Oxyhemoglobin Carboxyhemoglobin Sodium 130 L Potassium Chloride 90.0 L Carbon Dioxide BUN 20 H Creatinine Glucose 346 H POC Glucose Hemoglobin A1c Lactic Acid Calcium Phosphorus Magnesium 2.40 H Ferritin AST 43 H Alkaline Phosphatase Lactate Dehydrogenase 582 H Total Creatine Kinase CK-MB (CK-2) CK-MB (CK-2) Rel Index Troponin T C-Reactive Protein 34.20 H NT-Pro-B Natriuret Pep Total Protein Albumin 3.1 L Triglycerides LDL Cholesterol Direct HDL Cholesterol Arterial Blood Glucose Arterial Blood Ionized Calcium Coronavirus (PCR) Crossmatch 12/02/20 12/02/20 12/02/20 03:58 06:15 07:37 WBC RBC Hgb Hct MCV MCH RDW Plt Count Lymph % (Auto) Lymph # (Auto) Seg Neutrophils % Seg Neuts % (Manual) Lymphocytes % (Manual) Nucleated RBC % Seg Neutrophils # Man Lymphocytes # (Manual) PT INR APTT Fibrinogen D-Dimer Heparin Anti-Xa Level ABG pH POC ABG pCO2 POC ABG pO2 ABG O2 Saturation ABG Hemoglobin ABG Oxyhemoglobin ABG Sodium ABG Potassium ABG Chloride ABG Glucose Oxyhemoglobin Carboxyhemoglobin Sodium Potassium Chloride Carbon Dioxide BUN Creatinine Glucose POC Glucose 339 H Hemoglobin A1c 9.5 H Lactic Acid Calcium Phosphorus Magnesium Ferritin 497.6 H AST Alkaline Phosphatase Lactate Dehydrogenase Total Creatine Kinase CK-MB (CK-2) CK-MB (CK-2) Rel Index Troponin T C-Reactive Protein NT-Pro-B Natriuret Pep Total Protein Albumin Triglycerides LDL Cholesterol Direct HDL Cholesterol Arterial Blood Glucose Arterial Blood Ionized Calcium Coronavirus (PCR) Crossmatch 12/02/20 12/02/20 12/02/20 08:15 11:52 13:29 WBC RBC Hgb 9.7 L Hct MCV MCH RDW Plt Count Lymph % (Auto) Lymph # (Auto) Seg Neutrophils % Seg Neuts % (Manual) Lymphocytes % (Manual) Nucleated RBC % Seg Neutrophils # Man Lymphocytes # (Manual) PT INR APTT Fibrinogen D-Dimer Heparin Anti-Xa Level ABG pH POC ABG pCO2 POC ABG pO2 ABG O2 Saturation ABG Hemoglobin ABG Oxyhemoglobin ABG Sodium ABG Potassium ABG Chloride ABG Glucose Oxyhemoglobin Carboxyhemoglobin Sodium Potassium Chloride Carbon Dioxide BUN Creatinine Glucose POC Glucose 305 H Hemoglobin A1c Lactic Acid Calcium Phosphorus Magnesium Ferritin AST Alkaline Phosphatase Lactate Dehydrogenase Total Creatine Kinase CK-MB (CK-2) CK-MB (CK-2) Rel Index Troponin T C-Reactive Protein NT-Pro-B Natriuret Pep Total Protein Albumin Triglycerides LDL Cholesterol Direct HDL Cholesterol Arterial Blood Glucose Arterial Blood Ionized Calcium Coronavirus (PCR) Positive A Crossmatch 12/02/20 12/02/20 12/02/20 16:53 22:39 23:39 WBC RBC Hgb Hct MCV MCH RDW Plt Count Lymph % (Auto) Lymph # (Auto) Seg Neutrophils % Seg Neuts % (Manual) Lymphocytes % (Manual) Nucleated RBC % Seg Neutrophils # Man Lymphocytes # (Manual) PT INR APTT Fibrinogen D-Dimer Heparin Anti-Xa Level ABG pH POC ABG pCO2 POC ABG pO2 ABG O2 Saturation ABG Hemoglobin ABG Oxyhemoglobin ABG Sodium ABG Potassium ABG Chloride ABG Glucose Oxyhemoglobin Carboxyhemoglobin Sodium 131 L Potassium Chloride 93.8 L Carbon Dioxide BUN 22 H Creatinine Glucose 301 H POC Glucose 281 H 290 H Hemoglobin A1c Lactic Acid Calcium Phosphorus Magnesium Ferritin AST Alkaline Phosphatase Lactate Dehydrogenase Total Creatine Kinase CK-MB (CK-2) CK-MB (CK-2) Rel Index Troponin T C-Reactive Protein NT-Pro-B Natriuret Pep Total Protein 6.2 L Albumin 2.8 L Triglycerides LDL Cholesterol Direct HDL Cholesterol Arterial Blood Glucose Arterial Blood Ionized Calcium Coronavirus (PCR) Crossmatch 12/03/20 12/03/20 12/03/20 03:48 03:48 08:59 WBC RBC 3.46 L Hgb 8.6 L Hct 26.5 L MCV 77 L MCH 25 L RDW 18.2 H Plt Count Lymph % (Auto) Lymph # (Auto) Seg Neutrophils % Seg Neuts % (Manual) 93.0 H Lymphocytes % (Manual) 3.0 L Nucleated RBC % Seg Neutrophils # Man Lymphocytes # (Manual) 0.2 L PT INR APTT Fibrinogen D-Dimer Heparin Anti-Xa Level ABG pH POC ABG pCO2 POC ABG pO2 ABG O2 Saturation ABG Hemoglobin ABG Oxyhemoglobin ABG Sodium ABG Potassium ABG Chloride ABG Glucose Oxyhemoglobin Carboxyhemoglobin Sodium 131 L Potassium Chloride 92.5 L Carbon Dioxide BUN 22 H Creatinine Glucose 279 H POC Glucose 258 H Hemoglobin A1c Lactic Acid Calcium 8.2 L Phosphorus Magnesium Ferritin AST Alkaline Phosphatase Lactate Dehydrogenase Total Creatine Kinase CK-MB (CK-2) CK-MB (CK-2) Rel Index Troponin T C-Reactive Protein NT-Pro-B Natriuret Pep Total Protein 5.6 L Albumin 2.8 L Triglycerides LDL Cholesterol Direct HDL Cholesterol Arterial Blood Glucose Arterial Blood Ionized Calcium Coronavirus (PCR) Crossmatch 12/03/20 12/03/20 12/03/20 12:45 15:57 17:01 WBC RBC Hgb Hct MCV MCH RDW Plt Count Lymph % (Auto) Lymph # (Auto) Seg Neutrophils % Seg Neuts % (Manual) Lymphocytes % (Manual) Nucleated RBC % Seg Neutrophils # Man Lymphocytes # (Manual) PT INR APTT Fibrinogen D-Dimer Heparin Anti-Xa Level ABG pH 7.527 H POC ABG pCO2 POC ABG pO2 50.4 L ABG O2 Saturation ABG Hemoglobin ABG Oxyhemoglobin ABG Sodium 129.8 L ABG Potassium ABG Chloride 95.0 L ABG Glucose 394 H Oxyhemoglobin Carboxyhemoglobin Sodium Potassium Chloride Carbon Dioxide BUN Creatinine Glucose POC Glucose 349 H 359 H Hemoglobin A1c Lactic Acid Calcium Phosphorus Magnesium Ferritin AST Alkaline Phosphatase Lactate Dehydrogenase Total Creatine Kinase CK-MB (CK-2) CK-MB (CK-2) Rel Index Troponin T C-Reactive Protein NT-Pro-B Natriuret Pep Total Protein Albumin Triglycerides LDL Cholesterol Direct HDL Cholesterol Arterial Blood Glucose 394 H Arterial Blood Ionized Calcium Coronavirus (PCR) Crossmatch 12/03/20 12/04/20 12/04/20 21:16 04:27 06:49 WBC RBC Hgb Hct MCV MCH RDW Plt Count Lymph % (Auto) Lymph # (Auto) Seg Neutrophils % Seg Neuts % (Manual) Lymphocytes % (Manual) Nucleated RBC % Seg Neutrophils # Man Lymphocytes # (Manual) PT INR APTT Fibrinogen D-Dimer Heparin Anti-Xa Level ABG pH 7.530 H POC ABG pCO2 POC ABG pO2 37.6 L ABG O2 Saturation ABG Hemoglobin 9.6 L ABG Oxyhemoglobin 72.5 L ABG Sodium 132.3 L ABG Potassium ABG Chloride ABG Glucose 180 H Oxyhemoglobin Carboxyhemoglobin 0.4 L Sodium 136 L Potassium Chloride 97.3 L Carbon Dioxide BUN 23 H Creatinine Glucose 166 H POC Glucose 295 H Hemoglobin A1c Lactic Acid Calcium Phosphorus Magnesium Ferritin AST Alkaline Phosphatase Lactate Dehydrogenase Total Creatine Kinase CK-MB (CK-2) CK-MB (CK-2) Rel Index Troponin T C-Reactive Protein NT-Pro-B Natriuret Pep Total Protein 5.7 L Albumin 2.6 L Triglycerides LDL Cholesterol Direct HDL Cholesterol Arterial Blood Glucose 180 H Arterial Blood Ionized Calcium Coronavirus (PCR) Crossmatch 12/04/20 12/04/20 12/04/20 07:49 11:37 16:22 WBC RBC Hgb Hct MCV MCH RDW Plt Count Lymph % (Auto) Lymph # (Auto) Seg Neutrophils % Seg Neuts % (Manual) Lymphocytes % (Manual) Nucleated RBC % Seg Neutrophils # Man Lymphocytes # (Manual) PT INR APTT Fibrinogen D-Dimer Heparin Anti-Xa Level ABG pH POC ABG pCO2 POC ABG pO2 ABG O2 Saturation ABG Hemoglobin ABG Oxyhemoglobin ABG Sodium ABG Potassium ABG Chloride ABG Glucose Oxyhemoglobin Carboxyhemoglobin Sodium Potassium Chloride Carbon Dioxide BUN Creatinine Glucose POC Glucose 180 H 213 H 177 H Hemoglobin A1c Lactic Acid Calcium Phosphorus Magnesium Ferritin AST Alkaline Phosphatase Lactate Dehydrogenase Total Creatine Kinase CK-MB (CK-2) CK-MB (CK-2) Rel Index Troponin T C-Reactive Protein NT-Pro-B Natriuret Pep Total Protein Albumin Triglycerides LDL Cholesterol Direct HDL Cholesterol Arterial Blood Glucose Arterial Blood Ionized Calcium Coronavirus (PCR) Crossmatch 12/04/20 12/04/20 12/05/20 22:21 23:12 05:16 WBC RBC Hgb Hct MCV MCH RDW Plt Count Lymph % (Auto) Lymph # (Auto) Seg Neutrophils % Seg Neuts % (Manual) Lymphocytes % (Manual) Nucleated RBC % Seg Neutrophils # Man Lymphocytes # (Manual) PT INR APTT Fibrinogen D-Dimer Heparin Anti-Xa Level ABG pH 7.494 H POC ABG pCO2 POC ABG pO2 56.3 L ABG O2 Saturation ABG Hemoglobin 8.6 L ABG Oxyhemoglobin 88.3 L ABG Sodium 131.8 L ABG Potassium ABG Chloride ABG Glucose 205 H Oxyhemoglobin Carboxyhemoglobin 0.3 L Sodium Potassium Chloride Carbon Dioxide BUN 19 H Creatinine Glucose 64 L POC Glucose 207 H Hemoglobin A1c Lactic Acid Calcium Phosphorus Magnesium Ferritin AST Alkaline Phosphatase Lactate Dehydrogenase Total Creatine Kinase CK-MB (CK-2) CK-MB (CK-2) Rel Index Troponin T C-Reactive Protein NT-Pro-B Natriuret Pep Total Protein 6.0 L Albumin 2.8 L Triglycerides LDL Cholesterol Direct HDL Cholesterol Arterial Blood Glucose 205 H Arterial Blood Ionized Calcium Coronavirus (PCR) Crossmatch 12/05/20 12/05/20 12/05/20 08:01 09:07 12:31 WBC RBC Hgb Hct MCV MCH RDW Plt Count Lymph % (Auto) Lymph # (Auto) Seg Neutrophils % Seg Neuts % (Manual) Lymphocytes % (Manual) Nucleated RBC % Seg Neutrophils # Man Lymphocytes # (Manual) PT INR APTT Fibrinogen D-Dimer Heparin Anti-Xa Level ABG pH POC ABG pCO2 POC ABG pO2 ABG O2 Saturation ABG Hemoglobin ABG Oxyhemoglobin ABG Sodium ABG Potassium ABG Chloride ABG Glucose Oxyhemoglobin Carboxyhemoglobin Sodium Potassium Chloride Carbon Dioxide BUN Creatinine Glucose POC Glucose 49 L 157 H 113 H Hemoglobin A1c Lactic Acid Calcium Phosphorus Magnesium Ferritin AST Alkaline Phosphatase Lactate Dehydrogenase Total Creatine Kinase CK-MB (CK-2) CK-MB (CK-2) Rel Index Troponin T C-Reactive Protein NT-Pro-B Natriuret Pep Total Protein Albumin Triglycerides LDL Cholesterol Direct HDL Cholesterol Arterial Blood Glucose Arterial Blood Ionized Calcium Coronavirus (PCR) Crossmatch 12/05/20 12/06/20 12/06/20 16:57 07:51 12:07 WBC RBC Hgb Hct MCV MCH RDW Plt Count Lymph % (Auto) Lymph # (Auto) Seg Neutrophils % Seg Neuts % (Manual) Lymphocytes % (Manual) Nucleated RBC % Seg Neutrophils # Man Lymphocytes # (Manual) PT INR APTT Fibrinogen D-Dimer Heparin Anti-Xa Level ABG pH POC ABG pCO2 POC ABG pO2 ABG O2 Saturation ABG Hemoglobin ABG Oxyhemoglobin ABG Sodium ABG Potassium ABG Chloride ABG Glucose Oxyhemoglobin Carboxyhemoglobin Sodium Potassium Chloride Carbon Dioxide BUN Creatinine Glucose POC Glucose 223 H 110 H 229 H Hemoglobin A1c Lactic Acid Calcium Phosphorus Magnesium Ferritin AST Alkaline Phosphatase Lactate Dehydrogenase Total Creatine Kinase CK-MB (CK-2) CK-MB (CK-2) Rel Index Troponin T C-Reactive Protein NT-Pro-B Natriuret Pep Total Protein Albumin Triglycerides LDL Cholesterol Direct HDL Cholesterol Arterial Blood Glucose Arterial Blood Ionized Calcium Coronavirus (PCR) Crossmatch 12/06/20 12/06/20 12/06/20 14:56 16:00 18:53 WBC RBC Hgb 9.6 L Hct MCV MCH RDW Plt Count Lymph % (Auto) Lymph # (Auto) Seg Neutrophils % Seg Neuts % (Manual) Lymphocytes % (Manual) Nucleated RBC % Seg Neutrophils # Man Lymphocytes # (Manual) PT INR APTT Fibrinogen D-Dimer > 83927 H Heparin Anti-Xa Level ABG pH POC ABG pCO2 POC ABG pO2 ABG O2 Saturation ABG Hemoglobin ABG Oxyhemoglobin ABG Sodium ABG Potassium ABG Chloride ABG Glucose Oxyhemoglobin Carboxyhemoglobin Sodium Potassium Chloride Carbon Dioxide BUN Creatinine Glucose POC Glucose 235 H Hemoglobin A1c Lactic Acid Calcium Phosphorus Magnesium Ferritin AST Alkaline Phosphatase Lactate Dehydrogenase Total Creatine Kinase CK-MB (CK-2) CK-MB (CK-2) Rel Index Troponin T C-Reactive Protein NT-Pro-B Natriuret Pep Total Protein Albumin Triglycerides LDL Cholesterol Direct HDL Cholesterol Arterial Blood Glucose Arterial Blood Ionized Calcium Coronavirus (PCR) Crossmatch 12/06/20 12/06/20 12/07/20 18:53 23:15 07:03 WBC RBC Hgb Hct MCV MCH RDW Plt Count Lymph % (Auto) Lymph # (Auto) Seg Neutrophils % Seg Neuts % (Manual) Lymphocytes % (Manual) Nucleated RBC % Seg Neutrophils # Man Lymphocytes # (Manual) PT 17.4 H INR 1.37 H APTT Fibrinogen D-Dimer Heparin Anti-Xa Level ABG pH POC ABG pCO2 POC ABG pO2 ABG O2 Saturation ABG Hemoglobin ABG Oxyhemoglobin ABG Sodium ABG Potassium ABG Chloride ABG Glucose Oxyhemoglobin Carboxyhemoglobin Sodium Potassium Chloride Carbon Dioxide BUN 23 H Creatinine Glucose 62 L POC Glucose 170 H Hemoglobin A1c Lactic Acid Calcium Phosphorus Magnesium Ferritin AST Alkaline Phosphatase Lactate Dehydrogenase Total Creatine Kinase CK-MB (CK-2) CK-MB (CK-2) Rel Index Troponin T C-Reactive Protein NT-Pro-B Natriuret Pep Total Protein Albumin Triglycerides LDL Cholesterol Direct HDL Cholesterol Arterial Blood Glucose Arterial Blood Ionized Calcium Coronavirus (PCR) Crossmatch 12/07/20 12/07/20 12/07/20 07:03 07:28 17:45 WBC RBC Hgb Hct MCV MCH RDW Plt Count Lymph % (Auto) Lymph # (Auto) Seg Neutrophils % Seg Neuts % (Manual) Lymphocytes % (Manual) Nucleated RBC % Seg Neutrophils # Man Lymphocytes # (Manual) PT INR APTT Fibrinogen D-Dimer Heparin Anti-Xa Level 0.85 H ABG pH POC ABG pCO2 POC ABG pO2 ABG O2 Saturation ABG Hemoglobin ABG Oxyhemoglobin ABG Sodium ABG Potassium ABG Chloride ABG Glucose Oxyhemoglobin Carboxyhemoglobin Sodium Potassium Chloride Carbon Dioxide BUN Creatinine Glucose POC Glucose 54 L 196 H Hemoglobin A1c Lactic Acid Calcium Phosphorus Magnesium Ferritin AST Alkaline Phosphatase Lactate Dehydrogenase Total Creatine Kinase CK-MB (CK-2) CK-MB (CK-2) Rel Index Troponin T C-Reactive Protein NT-Pro-B Natriuret Pep Total Protein Albumin Triglycerides LDL Cholesterol Direct HDL Cholesterol Arterial Blood Glucose Arterial Blood Ionized Calcium Coronavirus (PCR) Crossmatch 12/07/20 12/08/20 12/08/20 21:26 13:11 13:25 WBC RBC Hgb Hct MCV MCH RDW Plt Count Lymph % (Auto) Lymph # (Auto) Seg Neutrophils % Seg Neuts % (Manual) Lymphocytes % (Manual) Nucleated RBC % Seg Neutrophils # Man Lymphocytes # (Manual) PT INR APTT Fibrinogen D-Dimer Heparin Anti-Xa Level ABG pH POC ABG pCO2 POC ABG pO2 ABG O2 Saturation ABG Hemoglobin ABG Oxyhemoglobin ABG Sodium ABG Potassium ABG Chloride ABG Glucose Oxyhemoglobin Carboxyhemoglobin Sodium Potassium Chloride Carbon Dioxide BUN Creatinine Glucose POC Glucose 165 H 62 L Hemoglobin A1c Lactic Acid Calcium Phosphorus Magnesium Ferritin AST Alkaline Phosphatase Lactate Dehydrogenase Total Creatine Kinase 520 H CK-MB (CK-2) 33.2 H CK-MB (CK-2) Rel Index 6.3 H Troponin T 0.646 H* C-Reactive Protein NT-Pro-B Natriuret Pep Total Protein Albumin Triglycerides 181 H LDL Cholesterol Direct 30 L HDL Cholesterol 35 L Arterial Blood Glucose Arterial Blood Ionized Calcium Coronavirus (PCR) Crossmatch 12/08/20 12/08/20 12/08/20 15:36 18:05 20:15 WBC RBC Hgb Hct MCV MCH RDW Plt Count Lymph % (Auto) Lymph # (Auto) Seg Neutrophils % Seg Neuts % (Manual) Lymphocytes % (Manual) Nucleated RBC % Seg Neutrophils # Man Lymphocytes # (Manual) PT INR APTT Fibrinogen D-Dimer Heparin Anti-Xa Level ABG pH 7.117 L POC ABG pCO2 61.7 H POC ABG pO2 39.7 L ABG O2 Saturation ABG Hemoglobin 9.0 L ABG Oxyhemoglobin 46.0 L ABG Sodium 135.7 L ABG Potassium 4.6 H ABG Chloride ABG Glucose 235 H Oxyhemoglobin Carboxyhemoglobin Sodium Potassium Chloride Carbon Dioxide BUN Creatinine Glucose POC Glucose 163 H Hemoglobin A1c Lactic Acid Calcium Phosphorus Magnesium Ferritin AST Alkaline Phosphatase Lactate Dehydrogenase Total Creatine Kinase 521 H CK-MB (CK-2) 31.5 H CK-MB (CK-2) Rel Index 6.0 H Troponin T 0.648 H* C-Reactive Protein NT-Pro-B Natriuret Pep 1573 H Total Protein Albumin Triglycerides LDL Cholesterol Direct HDL Cholesterol Arterial Blood Glucose 235 H Arterial Blood Ionized Calcium Coronavirus (PCR) Crossmatch 12/08/20 12/08/20 12/08/20 20:15 20:15 20:15 WBC 24.0 H RBC 3.35 L Hgb 8.1 L Hct 26.0 L D MCV 78 L MCH 24 L RDW 18.5 H Plt Count Lymph % (Auto) Lymph # (Auto) Seg Neutrophils % Seg Neuts % (Manual) 91.0 H Lymphocytes % (Manual) 5.0 L Nucleated RBC % Seg Neutrophils # Man 21.8 H Lymphocytes # (Manual) PT INR APTT 62.9 H* Fibrinogen D-Dimer > 84805 H Heparin Anti-Xa Level ABG pH POC ABG pCO2 POC ABG pO2 ABG O2 Saturation ABG Hemoglobin ABG Oxyhemoglobin ABG Sodium ABG Potassium ABG Chloride ABG Glucose Oxyhemoglobin Carboxyhemoglobin Sodium Potassium 5.1 H D Chloride Carbon Dioxide BUN 27 H Creatinine Glucose 186 H POC Glucose Hemoglobin A1c Lactic Acid Calcium 7.8 L Phosphorus 5.50 H Magnesium 2.40 H Ferritin AST 126 H Alkaline Phosphatase 298 H Lactate Dehydrogenase 2677 H Total Creatine Kinase CK-MB (CK-2) CK-MB (CK-2) Rel Index Troponin T C-Reactive Protein NT-Pro-B Natriuret Pep Total Protein 4.9 L Albumin 2.6 L Triglycerides LDL Cholesterol Direct HDL Cholesterol Arterial Blood Glucose Arterial Blood Ionized Calcium Coronavirus (PCR) Crossmatch 12/08/20 12/08/20 12/09/20 21:00 22:03 06:00 WBC RBC Hgb Hct MCV MCH RDW Plt Count Lymph % (Auto) Lymph # (Auto) Seg Neutrophils % Seg Neuts % (Manual) Lymphocytes % (Manual) Nucleated RBC % Seg Neutrophils # Man Lymphocytes # (Manual) PT INR APTT Fibrinogen D-Dimer Heparin Anti-Xa Level 0.85 H ABG pH 7.318 L POC ABG pCO2 51.9 H POC ABG pO2 74.6 L ABG O2 Saturation ABG Hemoglobin 8.9 L ABG Oxyhemoglobin 90.8 L ABG Sodium ABG Potassium 4.9 H ABG Chloride ABG Glucose 141 H Oxyhemoglobin Carboxyhemoglobin Sodium Potassium Chloride Carbon Dioxide BUN Creatinine Glucose POC Glucose 163 H Hemoglobin A1c Lactic Acid Calcium Phosphorus Magnesium Ferritin AST Alkaline Phosphatase Lactate Dehydrogenase Total Creatine Kinase CK-MB (CK-2) CK-MB (CK-2) Rel Index Troponin T C-Reactive Protein NT-Pro-B Natriuret Pep Total Protein Albumin Triglycerides LDL Cholesterol Direct HDL Cholesterol Arterial Blood Glucose 141 H Arterial Blood Ionized Calcium 4.5 L Coronavirus (PCR) Crossmatch 12/09/20 12/09/20 12/09/20 08:13 11:53 13:08 WBC RBC Hgb Hct MCV MCH RDW Plt Count Lymph % (Auto) Lymph # (Auto) Seg Neutrophils % Seg Neuts % (Manual) Lymphocytes % (Manual) Nucleated RBC % Seg Neutrophils # Man Lymphocytes # (Manual) PT INR APTT Fibrinogen D-Dimer Heparin Anti-Xa Level 0.94 H ABG pH POC ABG pCO2 50.7 H POC ABG pO2 156.4 H ABG O2 Saturation ABG Hemoglobin 8.7 L ABG Oxyhemoglobin ABG Sodium 134.9 L ABG Potassium 5.4 H ABG Chloride ABG Glucose 140 H Oxyhemoglobin Carboxyhemoglobin Sodium Potassium Chloride Carbon Dioxide BUN Creatinine Glucose POC Glucose 127 H Hemoglobin A1c Lactic Acid Calcium Phosphorus Magnesium Ferritin AST Alkaline Phosphatase Lactate Dehydrogenase Total Creatine Kinase CK-MB (CK-2) CK-MB (CK-2) Rel Index Troponin T C-Reactive Protein NT-Pro-B Natriuret Pep Total Protein Albumin Triglycerides LDL Cholesterol Direct HDL Cholesterol Arterial Blood Glucose 140 H Arterial Blood Ionized Calcium 4.2 L Coronavirus (PCR) Crossmatch 12/09/20 12/09/20 12/09/20 13:08 13:08 13:08 WBC 20.8 H RBC 3.35 L Hgb 8.3 L Hct 26.2 L MCV 78 L MCH 25 L RDW 19.5 H Plt Count Lymph % (Auto) Lymph # (Auto) Seg Neutrophils % Seg Neuts % (Manual) Lymphocytes % (Manual) Nucleated RBC % Seg Neutrophils # Man Lymphocytes # (Manual) PT 15.2 H INR 1.15 H APTT 84.5 H* Fibrinogen D-Dimer 4051.67 H Heparin Anti-Xa Level ABG pH POC ABG pCO2 POC ABG pO2 ABG O2 Saturation ABG Hemoglobin ABG Oxyhemoglobin ABG Sodium ABG Potassium ABG Chloride ABG Glucose Oxyhemoglobin Carboxyhemoglobin Sodium Potassium Chloride Carbon Dioxide BUN 34 H Creatinine 1.4 H Glucose 156 H POC Glucose Hemoglobin A1c Lactic Acid Calcium 8.1 L Phosphorus Magnesium Ferritin AST 97 H Alkaline Phosphatase 241 H Lactate Dehydrogenase Total Creatine Kinase CK-MB (CK-2) CK-MB (CK-2) Rel Index Troponin T C-Reactive Protein NT-Pro-B Natriuret Pep Total Protein 5.2 L Albumin 2.7 L Triglycerides LDL Cholesterol Direct HDL Cholesterol Arterial Blood Glucose Arterial Blood Ionized Calcium Coronavirus (PCR) Crossmatch 12/09/20 12/09/20 12/09/20 13:08 13:08 13:08 WBC RBC Hgb Hct MCV MCH RDW Plt Count Lymph % (Auto) Lymph # (Auto) Seg Neutrophils % Seg Neuts % (Manual) Lymphocytes % (Manual) Nucleated RBC % Seg Neutrophils # Man Lymphocytes # (Manual) PT INR APTT Fibrinogen D-Dimer Heparin Anti-Xa Level ABG pH POC ABG pCO2 POC ABG pO2 ABG O2 Saturation ABG Hemoglobin ABG Oxyhemoglobin ABG Sodium ABG Potassium ABG Chloride ABG Glucose Oxyhemoglobin Carboxyhemoglobin Sodium Potassium Chloride Carbon Dioxide BUN Creatinine Glucose POC Glucose Hemoglobin A1c Lactic Acid 2.50 H* Calcium Phosphorus 4.70 H Magnesium 2.70 H Ferritin 472.6 H AST Alkaline Phosphatase Lactate Dehydrogenase 2146 H Total Creatine Kinase CK-MB (CK-2) CK-MB (CK-2) Rel Index Troponin T 0.487 H* D C-Reactive Protein 8.70 H NT-Pro-B Natriuret Pep Total Protein Albumin Triglycerides LDL Cholesterol Direct HDL Cholesterol Arterial Blood Glucose Arterial Blood Ionized Calcium Coronavirus (PCR) Crossmatch 12/09/20 12/09/20 12/09/20 13:08 17:17 23:43 WBC RBC Hgb Hct MCV MCH RDW Plt Count Lymph % (Auto) Lymph # (Auto) Seg Neutrophils % Seg Neuts % (Manual) Lymphocytes % (Manual) Nucleated RBC % Seg Neutrophils # Man Lymphocytes # (Manual) PT INR APTT Fibrinogen D-Dimer Heparin Anti-Xa Level ABG pH POC ABG pCO2 POC ABG pO2 ABG O2 Saturation ABG Hemoglobin ABG Oxyhemoglobin ABG Sodium ABG Potassium ABG Chloride ABG Glucose Oxyhemoglobin Carboxyhemoglobin Sodium Potassium Chloride Carbon Dioxide BUN Creatinine Glucose POC Glucose 179 H 144 H Hemoglobin A1c Lactic Acid Calcium Phosphorus Magnesium Ferritin AST Alkaline Phosphatase Lactate Dehydrogenase Total Creatine Kinase CK-MB (CK-2) CK-MB (CK-2) Rel Index Troponin T C-Reactive Protein NT-Pro-B Natriuret Pep 2396 H Total Protein Albumin Triglycerides LDL Cholesterol Direct HDL Cholesterol Arterial Blood Glucose Arterial Blood Ionized Calcium Coronavirus (PCR) Crossmatch 12/10/20 12/10/20 12/10/20 02:39 03:08 04:10 WBC 19.2 H RBC 2.76 L Hgb 6.7 L Hct 21.7 L MCV MCH 24 L RDW 19.3 H Plt Count Lymph % (Auto) Lymph # (Auto) Seg Neutrophils % Seg Neuts % (Manual) 95.0 H Lymphocytes % (Manual) 1.0 L Nucleated RBC % 3.0 H Seg Neutrophils # Man 18.2 H Lymphocytes # (Manual) 0.2 L PT INR APTT Fibrinogen D-Dimer Heparin Anti-Xa Level ABG pH POC ABG pCO2 POC ABG pO2 ABG O2 Saturation ABG Hemoglobin 6.3 L ABG Oxyhemoglobin 93.8 L ABG Sodium ABG Potassium ABG Chloride 108.0 H ABG Glucose 237 H Oxyhemoglobin Carboxyhemoglobin Sodium Potassium Chloride Carbon Dioxide BUN Creatinine Glucose POC Glucose Hemoglobin A1c Lactic Acid Calcium Phosphorus Magnesium Ferritin AST Alkaline Phosphatase Lactate Dehydrogenase Total Creatine Kinase CK-MB (CK-2) CK-MB (CK-2) Rel Index Troponin T C-Reactive Protein NT-Pro-B Natriuret Pep Total Protein Albumin Triglycerides LDL Cholesterol Direct HDL Cholesterol Arterial Blood Glucose 237 H Arterial Blood Ionized Calcium 4.3 L Coronavirus (PCR) Crossmatch See Detail 12/10/20 12/10/20 12/10/20 05:42 07:43 11:47 WBC RBC Hgb Hct MCV MCH RDW Plt Count Lymph % (Auto) Lymph # (Auto) Seg Neutrophils % Seg Neuts % (Manual) Lymphocytes % (Manual) Nucleated RBC % Seg Neutrophils # Man Lymphocytes # (Manual) PT INR APTT Fibrinogen D-Dimer Heparin Anti-Xa Level ABG pH POC ABG pCO2 POC ABG pO2 ABG O2 Saturation ABG Hemoglobin ABG Oxyhemoglobin ABG Sodium ABG Potassium ABG Chloride ABG Glucose Oxyhemoglobin Carboxyhemoglobin Sodium Potassium Chloride Carbon Dioxide BUN 39 H Creatinine 1.5 H Glucose 218 H POC Glucose 209 H 208 H Hemoglobin A1c Lactic Acid Calcium 7.9 L Phosphorus Magnesium Ferritin AST Alkaline Phosphatase Lactate Dehydrogenase Total Creatine Kinase CK-MB (CK-2) CK-MB (CK-2) Rel Index Troponin T C-Reactive Protein NT-Pro-B Natriuret Pep Total Protein Albumin Triglycerides LDL Cholesterol Direct HDL Cholesterol Arterial Blood Glucose Arterial Blood Ionized Calcium Coronavirus (PCR) Crossmatch 12/10/20 12/10/20 12/10/20 13:30 17:26 21:32 WBC RBC Hgb 7.8 L Hct 24.0 L MCV MCH RDW Plt Count Lymph % (Auto) Lymph # (Auto) Seg Neutrophils % Seg Neuts % (Manual) Lymphocytes % (Manual) Nucleated RBC % Seg Neutrophils # Man Lymphocytes # (Manual) PT INR APTT Fibrinogen D-Dimer Heparin Anti-Xa Level ABG pH POC ABG pCO2 POC ABG pO2 ABG O2 Saturation ABG Hemoglobin ABG Oxyhemoglobin ABG Sodium ABG Potassium ABG Chloride ABG Glucose Oxyhemoglobin Carboxyhemoglobin Sodium Potassium Chloride Carbon Dioxide BUN Creatinine Glucose POC Glucose 184 H 135 H Hemoglobin A1c Lactic Acid Calcium Phosphorus Magnesium Ferritin AST Alkaline Phosphatase Lactate Dehydrogenase Total Creatine Kinase CK-MB (CK-2) CK-MB (CK-2) Rel Index Troponin T C-Reactive Protein NT-Pro-B Natriuret Pep Total Protein Albumin Triglycerides LDL Cholesterol Direct HDL Cholesterol Arterial Blood Glucose Arterial Blood Ionized Calcium Coronavirus (PCR) Crossmatch 12/10/20 12/11/20 12/11/20 23:03 02:57 04:29 WBC RBC Hgb Hct MCV MCH RDW Plt Count Lymph % (Auto) Lymph # (Auto) Seg Neutrophils % Seg Neuts % (Manual) Lymphocytes % (Manual) Nucleated RBC % Seg Neutrophils # Man Lymphocytes # (Manual) PT INR APTT Fibrinogen D-Dimer Heparin Anti-Xa Level ABG pH POC ABG pCO2 POC ABG pO2 ABG O2 Saturation ABG Hemoglobin 7.4 L ABG Oxyhemoglobin ABG Sodium ABG Potassium ABG Chloride 110.0 H ABG Glucose 250 H Oxyhemoglobin Carboxyhemoglobin Sodium Potassium Chloride Carbon Dioxide BUN Creatinine Glucose POC Glucose 204 H Hemoglobin A1c Lactic Acid Calcium Phosphorus Magnesium Ferritin AST Alkaline Phosphatase Lactate Dehydrogenase Total Creatine Kinase CK-MB (CK-2) CK-MB (CK-2) Rel Index Troponin T C-Reactive Protein NT-Pro-B Natriuret Pep Total Protein Albumin Triglycerides 366 H LDL Cholesterol Direct HDL Cholesterol Arterial Blood Glucose 250 H Arterial Blood Ionized Calcium 4.4 L Coronavirus (PCR) Crossmatch 12/11/20 12/11/20 12/11/20 04:29 04:29 05:05 WBC 16.5 H RBC 2.60 L Hgb 7.0 L Hct 21.8 L MCV MCH 27 L RDW 18.4 H Plt Count 111 L Lymph % (Auto) Lymph # (Auto) Seg Neutrophils % Seg Neuts % (Manual) Lymphocytes % (Manual) Nucleated RBC % Seg Neutrophils # Man Lymphocytes # (Manual) PT INR APTT Fibrinogen D-Dimer Heparin Anti-Xa Level ABG pH POC ABG pCO2 POC ABG pO2 ABG O2 Saturation ABG Hemoglobin ABG Oxyhemoglobin ABG Sodium ABG Potassium ABG Chloride ABG Glucose Oxyhemoglobin Carboxyhemoglobin Sodium Potassium Chloride 107.5 H Carbon Dioxide BUN 45 H Creatinine 1.4 H Glucose 258 H POC Glucose 250 H Hemoglobin A1c Lactic Acid Calcium 7.7 L Phosphorus Magnesium 3.00 H Ferritin AST 78 H Alkaline Phosphatase 141 H Lactate Dehydrogenase Total Creatine Kinase CK-MB (CK-2) CK-MB (CK-2) Rel Index Troponin T C-Reactive Protein NT-Pro-B Natriuret Pep Total Protein 4.4 L Albumin 2.2 L Triglycerides LDL Cholesterol Direct HDL Cholesterol Arterial Blood Glucose Arterial Blood Ionized Calcium Coronavirus (PCR) Crossmatch 12/11/20 12/11/20 12/11/20 10:25 11:07 15:45 WBC RBC Hgb 6.7 L Hct 21.0 L MCV MCH RDW Plt Count Lymph % (Auto) Lymph # (Auto) Seg Neutrophils % Seg Neuts % (Manual) Lymphocytes % (Manual) Nucleated RBC % Seg Neutrophils # Man Lymphocytes # (Manual) PT INR APTT Fibrinogen D-Dimer Heparin Anti-Xa Level < 0.10 L ABG pH POC ABG pCO2 POC ABG pO2 ABG O2 Saturation ABG Hemoglobin ABG Oxyhemoglobin ABG Sodium ABG Potassium ABG Chloride ABG Glucose Oxyhemoglobin Carboxyhemoglobin Sodium Potassium Chloride Carbon Dioxide BUN Creatinine Glucose POC Glucose 225 H Hemoglobin A1c Lactic Acid Calcium Phosphorus Magnesium Ferritin AST Alkaline Phosphatase Lactate Dehydrogenase Total Creatine Kinase CK-MB (CK-2) CK-MB (CK-2) Rel Index Troponin T C-Reactive Protein NT-Pro-B Natriuret Pep Total Protein Albumin Triglycerides LDL Cholesterol Direct HDL Cholesterol Arterial Blood Glucose Arterial Blood Ionized Calcium Coronavirus (PCR) Crossmatch 12/11/20 12/11/20 12/11/20 15:45 16:21 17:54 WBC 17.2 H RBC 2.38 L Hgb 6.3 L Hct 19.6 L* MCV MCH 27 L RDW 18.8 H Plt Count 91 L Lymph % (Auto) Lymph # (Auto) Seg Neutrophils % Seg Neuts % (Manual) Lymphocytes % (Manual) Nucleated RBC % Seg Neutrophils # Man Lymphocytes # (Manual) PT 17.3 H INR 1.35 H APTT Fibrinogen 104 L* D-Dimer Heparin Anti-Xa Level ABG pH POC ABG pCO2 POC ABG pO2 ABG O2 Saturation ABG Hemoglobin ABG Oxyhemoglobin ABG Sodium ABG Potassium ABG Chloride ABG Glucose Oxyhemoglobin Carboxyhemoglobin Sodium Potassium Chloride Carbon Dioxide BUN Creatinine Glucose POC Glucose 259 H Hemoglobin A1c Lactic Acid Calcium Phosphorus Magnesium Ferritin AST Alkaline Phosphatase Lactate Dehydrogenase Total Creatine Kinase CK-MB (CK-2) CK-MB (CK-2) Rel Index Troponin T C-Reactive Protein NT-Pro-B Natriuret Pep Total Protein Albumin Triglycerides LDL Cholesterol Direct HDL Cholesterol Arterial Blood Glucose Arterial Blood Ionized Calcium Coronavirus (PCR) Crossmatch 12/11/20 12/11/20 12/11/20 21:28 23:19 Unknown WBC RBC Hgb 8.3 L Hct 26.0 L D MCV MCH RDW Plt Count Lymph % (Auto) Lymph # (Auto) Seg Neutrophils % Seg Neuts % (Manual) Lymphocytes % (Manual) Nucleated RBC % Seg Neutrophils # Man Lymphocytes # (Manual) PT INR APTT Fibrinogen D-Dimer Heparin Anti-Xa Level ABG pH POC ABG pCO2 POC ABG pO2 ABG O2 Saturation ABG Hemoglobin ABG Oxyhemoglobin ABG Sodium ABG Potassium ABG Chloride ABG Glucose Oxyhemoglobin Carboxyhemoglobin Sodium Potassium Chloride Carbon Dioxide BUN Creatinine Glucose POC Glucose 251 H 229 H Hemoglobin A1c Lactic Acid Calcium Phosphorus Magnesium Ferritin AST Alkaline Phosphatase Lactate Dehydrogenase Total Creatine Kinase CK-MB (CK-2) CK-MB (CK-2) Rel Index Troponin T C-Reactive Protein NT-Pro-B Natriuret Pep Total Protein Albumin Triglycerides LDL Cholesterol Direct HDL Cholesterol Arterial Blood Glucose Arterial Blood Ionized Calcium Coronavirus (PCR) Crossmatch 12/12/20 12/12/20 12/12/20 04:00 04:44 06:04 WBC 22.1 H RBC 3.21 L Hgb 8.4 L Hct 26.8 L MCV MCH 26 L RDW 19.5 H Plt Count 106 L Lymph % (Auto) Lymph # (Auto) Seg Neutrophils % Seg Neuts % (Manual) Lymphocytes % (Manual) Nucleated RBC % Seg Neutrophils # Man Lymphocytes # (Manual) PT INR APTT Fibrinogen D-Dimer Heparin Anti-Xa Level ABG pH POC ABG pCO2 POC ABG pO2 79.5 L ABG O2 Saturation ABG Hemoglobin 8.8 L ABG Oxyhemoglobin 93.5 L ABG Sodium ABG Potassium ABG Chloride 114.0 H ABG Glucose 257 H Oxyhemoglobin Carboxyhemoglobin Sodium Potassium Chloride Carbon Dioxide BUN Creatinine Glucose POC Glucose 232 H Hemoglobin A1c Lactic Acid Calcium Phosphorus Magnesium Ferritin AST Alkaline Phosphatase Lactate Dehydrogenase Total Creatine Kinase CK-MB (CK-2) CK-MB (CK-2) Rel Index Troponin T C-Reactive Protein NT-Pro-B Natriuret Pep Total Protein Albumin Triglycerides LDL Cholesterol Direct HDL Cholesterol Arterial Blood Glucose 257 H Arterial Blood Ionized Calcium Coronavirus (PCR) Crossmatch 12/12/20 12/12/20 12/12/20 06:04 06:04 08:10 WBC RBC Hgb Hct MCV MCH RDW Plt Count Lymph % (Auto) Lymph # (Auto) Seg Neutrophils % Seg Neuts % (Manual) Lymphocytes % (Manual) Nucleated RBC % Seg Neutrophils # Man Lymphocytes # (Manual) PT INR APTT Fibrinogen 100 L* D-Dimer > 14993 H Heparin Anti-Xa Level ABG pH POC ABG pCO2 POC ABG pO2 ABG O2 Saturation ABG Hemoglobin ABG Oxyhemoglobin ABG Sodium ABG Potassium ABG Chloride ABG Glucose Oxyhemoglobin Carboxyhemoglobin Sodium 146 H D Potassium Chloride 116.0 H Carbon Dioxide 20 L BUN 40 H Creatinine Glucose 234 H POC Glucose Hemoglobin A1c Lactic Acid Calcium 7.5 L Phosphorus Magnesium 3.10 H Ferritin 240.7 H AST Alkaline Phosphatase Lactate Dehydrogenase 1274 H Total Creatine Kinase CK-MB (CK-2) CK-MB (CK-2) Rel Index Troponin T C-Reactive Protein 2.80 H NT-Pro-B Natriuret Pep Total Protein Albumin Triglycerides LDL Cholesterol Direct HDL Cholesterol Arterial Blood Glucose Arterial Blood Ionized Calcium Coronavirus (PCR) Crossmatch 12/12/20 12/12/20 12/12/20 08:10 11:49 17:41 WBC RBC Hgb 8.2 L Hct 25.9 L MCV MCH RDW Plt Count Lymph % (Auto) Lymph # (Auto) Seg Neutrophils % Seg Neuts % (Manual) Lymphocytes % (Manual) Nucleated RBC % Seg Neutrophils # Man Lymphocytes # (Manual) PT INR APTT Fibrinogen D-Dimer Heparin Anti-Xa Level ABG pH POC ABG pCO2 POC ABG pO2 ABG O2 Saturation ABG Hemoglobin ABG Oxyhemoglobin ABG Sodium ABG Potassium ABG Chloride ABG Glucose Oxyhemoglobin Carboxyhemoglobin Sodium Potassium Chloride Carbon Dioxide BUN Creatinine Glucose POC Glucose 215 H 143 H Hemoglobin A1c Lactic Acid Calcium Phosphorus Magnesium Ferritin AST Alkaline Phosphatase Lactate Dehydrogenase Total Creatine Kinase CK-MB (CK-2) CK-MB (CK-2) Rel Index Troponin T C-Reactive Protein NT-Pro-B Natriuret Pep Total Protein Albumin Triglycerides LDL Cholesterol Direct HDL Cholesterol Arterial Blood Glucose Arterial Blood Ionized Calcium Coronavirus (PCR) Crossmatch 12/12/20 12/13/20 12/13/20 23:38 04:00 05:20 WBC RBC Hgb Hct MCV MCH RDW Plt Count Lymph % (Auto) Lymph # (Auto) Seg Neutrophils % Seg Neuts % (Manual) Lymphocytes % (Manual) Nucleated RBC % Seg Neutrophils # Man Lymphocytes # (Manual) PT INR APTT Fibrinogen D-Dimer Heparin Anti-Xa Level ABG pH POC ABG pCO2 POC ABG pO2 56.6 L ABG O2 Saturation ABG Hemoglobin 7.0 L ABG Oxyhemoglobin 85.1 L ABG Sodium ABG Potassium ABG Chloride 118.0 H ABG Glucose 231 H Oxyhemoglobin Carboxyhemoglobin 2.0 H Sodium Potassium Chloride Carbon Dioxide BUN Creatinine Glucose POC Glucose 220 H 215 H Hemoglobin A1c Lactic Acid Calcium Phosphorus Magnesium Ferritin AST Alkaline Phosphatase Lactate Dehydrogenase Total Creatine Kinase CK-MB (CK-2) CK-MB (CK-2) Rel Index Troponin T C-Reactive Protein NT-Pro-B Natriuret Pep Total Protein Albumin Triglycerides LDL Cholesterol Direct HDL Cholesterol Arterial Blood Glucose 231 H Arterial Blood Ionized Calcium Coronavirus (PCR) Crossmatch 12/13/20 12/13/20 12/13/20 06:55 06:55 12:19 WBC 23.0 H RBC 2.74 L Hgb 7.1 L Hct 22.6 L MCV MCH 26 L RDW 20.3 H Plt Count 80 L Lymph % (Auto) Lymph # (Auto) Seg Neutrophils % Seg Neuts % (Manual) Lymphocytes % (Manual) Nucleated RBC % Seg Neutrophils # Man Lymphocytes # (Manual) PT INR APTT Fibrinogen D-Dimer Heparin Anti-Xa Level ABG pH POC ABG pCO2 POC ABG pO2 ABG O2 Saturation ABG Hemoglobin ABG Oxyhemoglobin ABG Sodium ABG Potassium ABG Chloride ABG Glucose Oxyhemoglobin Carboxyhemoglobin Sodium 149 H Potassium Chloride 115.8 H Carbon Dioxide BUN 45 H Creatinine Glucose 237 H POC Glucose 250 H Hemoglobin A1c Lactic Acid Calcium Phosphorus Magnesium 3.10 H Ferritin AST 88 H Alkaline Phosphatase 241 H Lactate Dehydrogenase Total Creatine Kinase CK-MB (CK-2) CK-MB (CK-2) Rel Index Troponin T C-Reactive Protein NT-Pro-B Natriuret Pep Total Protein 5.1 L Albumin 2.8 L Triglycerides LDL Cholesterol Direct HDL Cholesterol Arterial Blood Glucose Arterial Blood Ionized Calcium Coronavirus (PCR) Crossmatch 12/13/20 12/13/20 12/14/20 17:39 23:50 04:59 WBC RBC Hgb Hct MCV MCH RDW Plt Count Lymph % (Auto) Lymph # (Auto) Seg Neutrophils % Seg Neuts % (Manual) Lymphocytes % (Manual) Nucleated RBC % Seg Neutrophils # Man Lymphocytes # (Manual) PT INR APTT Fibrinogen D-Dimer Heparin Anti-Xa Level ABG pH POC ABG pCO2 POC ABG pO2 ABG O2 Saturation ABG Hemoglobin ABG Oxyhemoglobin ABG Sodium ABG Potassium ABG Chloride ABG Glucose Oxyhemoglobin Carboxyhemoglobin Sodium Potassium Chloride Carbon Dioxide BUN Creatinine Glucose POC Glucose 257 H 288 H 362 H Hemoglobin A1c Lactic Acid Calcium Phosphorus Magnesium Ferritin AST Alkaline Phosphatase Lactate Dehydrogenase Total Creatine Kinase CK-MB (CK-2) CK-MB (CK-2) Rel Index Troponin T C-Reactive Protein NT-Pro-B Natriuret Pep Total Protein Albumin Triglycerides LDL Cholesterol Direct HDL Cholesterol Arterial Blood Glucose Arterial Blood Ionized Calcium Coronavirus (PCR) Crossmatch 12/14/20 12/14/20 12/14/20 06:25 06:55 06:55 WBC 18.7 H RBC 2.27 L Hgb 5.9 L* Hct 19.6 L* MCV MCH 26 L RDW 20.7 H Plt Count 58 L Lymph % (Auto) Lymph # (Auto) Seg Neutrophils % Seg Neuts % (Manual) Lymphocytes % (Manual) Nucleated RBC % Seg Neutrophils # Man Lymphocytes # (Manual) PT 17.5 H INR 1.37 H APTT Fibrinogen 120 L* D-Dimer > 85637 H Heparin Anti-Xa Level ABG pH POC ABG pCO2 POC ABG pO2 ABG O2 Saturation 75.8 L ABG Hemoglobin 5.8 L ABG Oxyhemoglobin ABG Sodium ABG Potassium ABG Chloride ABG Glucose Oxyhemoglobin 73.5 L Carboxyhemoglobin Sodium Potassium Chloride Carbon Dioxide BUN Creatinine Glucose POC Glucose Hemoglobin A1c Lactic Acid Calcium Phosphorus Magnesium Ferritin AST Alkaline Phosphatase Lactate Dehydrogenase Total Creatine Kinase CK-MB (CK-2) CK-MB (CK-2) Rel Index Troponin T C-Reactive Protein NT-Pro-B Natriuret Pep Total Protein Albumin Triglycerides LDL Cholesterol Direct HDL Cholesterol Arterial Blood Glucose Arterial Blood Ionized Calcium Coronavirus (PCR) Crossmatch 12/14/20 12/14/20 12/14/20 06:55 06:55 08:38 WBC RBC Hgb Hct MCV MCH RDW Plt Count Lymph % (Auto) Lymph # (Auto) Seg Neutrophils % Seg Neuts % (Manual) Lymphocytes % (Manual) Nucleated RBC % Seg Neutrophils # Man Lymphocytes # (Manual) PT INR APTT Fibrinogen D-Dimer Heparin Anti-Xa Level ABG pH POC ABG pCO2 POC ABG pO2 ABG O2 Saturation ABG Hemoglobin ABG Oxyhemoglobin ABG Sodium ABG Potassium ABG Chloride ABG Glucose Oxyhemoglobin Carboxyhemoglobin Sodium 147 H Potassium 5.3 H Chloride 116.7 H Carbon Dioxide BUN 55 H Creatinine Glucose 368 H POC Glucose Hemoglobin A1c Lactic Acid Calcium Phosphorus Magnesium Ferritin 398.2 H AST 86 H Alkaline Phosphatase 270 H Lactate Dehydrogenase 2448 H Total Creatine Kinase CK-MB (CK-2) CK-MB (CK-2) Rel Index Troponin T C-Reactive Protein 9.10 H NT-Pro-B Natriuret Pep Total Protein 5.2 L Albumin 2.7 L Triglycerides 327 H LDL Cholesterol Direct HDL Cholesterol Arterial Blood Glucose Arterial Blood Ionized Calcium Coronavirus (PCR) Crossmatch 12/14/20 12/14/20 12/14/20 11:42 14:20 17:04 WBC RBC Hgb Hct MCV MCH RDW Plt Count Lymph % (Auto) Lymph # (Auto) Seg Neutrophils % Seg Neuts % (Manual) Lymphocytes % (Manual) Nucleated RBC % Seg Neutrophils # Man Lymphocytes # (Manual) PT INR APTT Fibrinogen D-Dimer Heparin Anti-Xa Level ABG pH POC ABG pCO2 POC ABG pO2 ABG O2 Saturation ABG Hemoglobin ABG Oxyhemoglobin ABG Sodium ABG Potassium ABG Chloride ABG Glucose Oxyhemoglobin Carboxyhemoglobin Sodium Potassium Chloride Carbon Dioxide BUN Creatinine Glucose POC Glucose 454 H 506 H Hemoglobin A1c Lactic Acid Calcium Phosphorus Magnesium Ferritin AST Alkaline Phosphatase Lactate Dehydrogenase Total Creatine Kinase CK-MB (CK-2) CK-MB (CK-2) Rel Index Troponin T C-Reactive Protein NT-Pro-B Natriuret Pep Total Protein Albumin Triglycerides LDL Cholesterol Direct HDL Cholesterol Arterial Blood Glucose Arterial Blood Ionized Calcium Coronavirus (PCR) Crossmatch See Detail 12/14/20 12/14/20 12/15/20 17:05 21:16 02:15 WBC 19.4 H RBC 2.76 L Hgb 7.7 L Hct 23.6 L MCV MCH RDW 18.0 H Plt Count 31 L Lymph % (Auto) Lymph # (Auto) Seg Neutrophils % Seg Neuts % (Manual) Lymphocytes % (Manual) Nucleated RBC % Seg Neutrophils # Man Lymphocytes # (Manual) PT INR APTT Fibrinogen D-Dimer Heparin Anti-Xa Level ABG pH POC ABG pCO2 POC ABG pO2 ABG O2 Saturation ABG Hemoglobin ABG Oxyhemoglobin ABG Sodium ABG Potassium ABG Chloride ABG Glucose Oxyhemoglobin Carboxyhemoglobin Sodium Potassium Chloride Carbon Dioxide BUN Creatinine Glucose POC Glucose 524 H 483 H Hemoglobin A1c Lactic Acid Calcium Phosphorus Magnesium Ferritin AST Alkaline Phosphatase Lactate Dehydrogenase Total Creatine Kinase CK-MB (CK-2) CK-MB (CK-2) Rel Index Troponin T C-Reactive Protein NT-Pro-B Natriuret Pep Total Protein Albumin Triglycerides LDL Cholesterol Direct HDL Cholesterol Arterial Blood Glucose Arterial Blood Ionized Calcium Coronavirus (PCR) Crossmatch 12/15/20 12/15/20 12/15/20 03:05 03:26 05:10 WBC RBC Hgb Hct MCV MCH RDW Plt Count Lymph % (Auto) Lymph # (Auto) Seg Neutrophils % Seg Neuts % (Manual) Lymphocytes % (Manual) Nucleated RBC % Seg Neutrophils # Man Lymphocytes # (Manual) PT 17.8 H INR 1.40 H APTT Fibrinogen 143 L* D-Dimer Heparin Anti-Xa Level ABG pH 7.313 L POC ABG pCO2 POC ABG pO2 66.7 L ABG O2 Saturation ABG Hemoglobin 6.9 L ABG Oxyhemoglobin 89.3 L ABG Sodium ABG Potassium 6.3 H ABG Chloride 117.0 H ABG Glucose 693 H Oxyhemoglobin Carboxyhemoglobin 1.8 H Sodium Potassium Chloride Carbon Dioxide BUN Creatinine Glucose POC Glucose 517 H Hemoglobin A1c Lactic Acid Calcium Phosphorus Magnesium Ferritin AST Alkaline Phosphatase Lactate Dehydrogenase Total Creatine Kinase CK-MB (CK-2) CK-MB (CK-2) Rel Index Troponin T C-Reactive Protein NT-Pro-B Natriuret Pep Total Protein Albumin Triglycerides LDL Cholesterol Direct HDL Cholesterol Arterial Blood Glucose 693 H Arterial Blood Ionized Calcium Coronavirus (PCR) Crossmatch 12/15/20 12/15/20 12/15/20 05:10 05:46 11:37 WBC RBC Hgb Hct MCV MCH RDW Plt Count Lymph % (Auto) Lymph # (Auto) Seg Neutrophils % Seg Neuts % (Manual) Lymphocytes % (Manual) Nucleated RBC % Seg Neutrophils # Man Lymphocytes # (Manual) PT INR APTT Fibrinogen D-Dimer Heparin Anti-Xa Level ABG pH POC ABG pCO2 POC ABG pO2 ABG O2 Saturation ABG Hemoglobin ABG Oxyhemoglobin ABG Sodium ABG Potassium ABG Chloride ABG Glucose Oxyhemoglobin Carboxyhemoglobin Sodium 147 H Potassium 6.2 H* Chloride 116.7 H Carbon Dioxide BUN 82 H Creatinine 1.3 H Glucose 661 H* POC Glucose 471 H 547 H Hemoglobin A1c Lactic Acid Calcium 8.2 L Phosphorus Magnesium Ferritin AST 53 H Alkaline Phosphatase 298 H Lactate Dehydrogenase Total Creatine Kinase CK-MB (CK-2) CK-MB (CK-2) Rel Index Troponin T C-Reactive Protein NT-Pro-B Natriuret Pep Total Protein 4.2 L Albumin 2.1 L Triglycerides LDL Cholesterol Direct HDL Cholesterol Arterial Blood Glucose Arterial Blood Ionized Calcium Coronavirus (PCR) Crossmatch 12/15/20 12/15/20 12/15/20 17:40 17:47 21:32 WBC RBC Hgb Hct MCV MCH RDW Plt Count Lymph % (Auto) Lymph # (Auto) Seg Neutrophils % Seg Neuts % (Manual) Lymphocytes % (Manual) Nucleated RBC % Seg Neutrophils # Man Lymphocytes # (Manual) PT INR APTT Fibrinogen D-Dimer Heparin Anti-Xa Level ABG pH POC ABG pCO2 POC ABG pO2 ABG O2 Saturation ABG Hemoglobin ABG Oxyhemoglobin ABG Sodium ABG Potassium ABG Chloride ABG Glucose Oxyhemoglobin Carboxyhemoglobin Sodium 150 H Potassium 5.9 H Chloride 117.8 H Carbon Dioxide BUN 93 H Creatinine 1.5 H Glucose 694 H* POC Glucose 585 H 468 H Hemoglobin A1c Lactic Acid Calcium 8.3 L Phosphorus Magnesium Ferritin AST Alkaline Phosphatase Lactate Dehydrogenase Total Creatine Kinase CK-MB (CK-2) CK-MB (CK-2) Rel Index Troponin T C-Reactive Protein NT-Pro-B Natriuret Pep Total Protein Albumin Triglycerides LDL Cholesterol Direct HDL Cholesterol Arterial Blood Glucose Arterial Blood Ionized Calcium Coronavirus (PCR) Crossmatch 12/16/20 12/16/20 12/16/20 02:11 04:00 04:30 WBC RBC Hgb Hct MCV MCH RDW Plt Count Lymph % (Auto) Lymph # (Auto) Seg Neutrophils % Seg Neuts % (Manual) Lymphocytes % (Manual) Nucleated RBC % Seg Neutrophils # Man Lymphocytes # (Manual) PT INR APTT Fibrinogen 76 L* D-Dimer Heparin Anti-Xa Level ABG pH POC ABG pCO2 POC ABG pO2 117.8 H ABG O2 Saturation ABG Hemoglobin 4.7 L ABG Oxyhemoglobin ABG Sodium 146.9 H ABG Potassium 5.2 H ABG Chloride 118.0 H ABG Glucose 582 H Oxyhemoglobin Carboxyhemoglobin 2.1 H Sodium Potassium Chloride Carbon Dioxide BUN Creatinine Glucose POC Glucose 459 H Hemoglobin A1c Lactic Acid Calcium Phosphorus Magnesium Ferritin AST Alkaline Phosphatase Lactate Dehydrogenase Total Creatine Kinase CK-MB (CK-2) CK-MB (CK-2) Rel Index Troponin T C-Reactive Protein NT-Pro-B Natriuret Pep Total Protein Albumin Triglycerides LDL Cholesterol Direct HDL Cholesterol Arterial Blood Glucose 582 H Arterial Blood Ionized Calcium Coronavirus (PCR) Crossmatch 12/16/20 12/16/20 12/16/20 04:30 04:30 06:12 WBC 18.2 H RBC 1.69 L Hgb 4.6 L* D Hct 14.8 L* D MCV MCH 27 L RDW 18.6 H Plt Count 9 L* Lymph % (Auto) Lymph # (Auto) Seg Neutrophils % Seg Neuts % (Manual) 95.0 H Lymphocytes % (Manual) Nucleated RBC % 14.0 H Seg Neutrophils # Man 17.8 H Lymphocytes # (Manual) 0.0 L PT INR APTT Fibrinogen D-Dimer Heparin Anti-Xa Level ABG pH POC ABG pCO2 POC ABG pO2 ABG O2 Saturation ABG Hemoglobin ABG Oxyhemoglobin ABG Sodium ABG Potassium ABG Chloride ABG Glucose Oxyhemoglobin Carboxyhemoglobin Sodium Potassium Chloride Carbon Dioxide BUN Creatinine Glucose POC Glucose 440 H Hemoglobin A1c Lactic Acid 2.60 H* Calcium Phosphorus Magnesium Ferritin AST Alkaline Phosphatase Lactate Dehydrogenase Total Creatine Kinase CK-MB (CK-2) CK-MB (CK-2) Rel Index Troponin T C-Reactive Protein NT-Pro-B Natriuret Pep Total Protein Albumin Triglycerides LDL Cholesterol Direct HDL Cholesterol Arterial Blood Glucose Arterial Blood Ionized Calcium Coronavirus (PCR) Crossmatch 12/16/20 12/16/20 09:35 09:53 WBC RBC Hgb Hct MCV MCH RDW Plt Count Lymph % (Auto) Lymph # (Auto) Seg Neutrophils % Seg Neuts % (Manual) Lymphocytes % (Manual) Nucleated RBC % Seg Neutrophils # Man Lymphocytes # (Manual) PT INR APTT Fibrinogen D-Dimer Heparin Anti-Xa Level ABG pH POC ABG pCO2 POC ABG pO2 ABG O2 Saturation ABG Hemoglobin ABG Oxyhemoglobin ABG Sodium ABG Potassium ABG Chloride ABG Glucose Oxyhemoglobin Carboxyhemoglobin Sodium Potassium Chloride Carbon Dioxide BUN Creatinine Glucose POC Glucose 391 H Hemoglobin A1c Lactic Acid 6.80 H* Calcium Phosphorus Magnesium Ferritin AST Alkaline Phosphatase Lactate Dehydrogenase Total Creatine Kinase CK-MB (CK-2) CK-MB (CK-2) Rel Index Troponin T C-Reactive Protein NT-Pro-B Natriuret Pep Total Protein Albumin Triglycerides LDL Cholesterol Direct HDL Cholesterol Arterial Blood Glucose Arterial Blood Ionized Calcium Coronavirus (PCR) Crossmatch Allied health notes reviewed: nursing
--- NOTE | 2020-12-16 13:35 | Progress Note ---
Assessment and Plan Assessment and plan: This is a 65 year old female with HTN, DM, GI bleed in 2016 admitted with COVID 19 pna, sepsis, acute hypoxic respiratory failure and ACS Heme: Anemia, brachial vein DVT, GIB, thrombocytopenia; covid coagulopathy -Guaiac positive stool, remote history of GI bleed (2016)- Reconsult GI considering severe anemia and nurse reporting rectal bleed. - Severe anemia and Thrombocytopenia less than 10 of the latter- Transfuse Plt. -GI/vascular/hem/onc consulted, appreciate recommendations -Trend H&H -Hemoglobin on admission 8.9 -Transfuse as needed for hgb<7 -Patient was on heparin drip was discontinued due to GI bleed -SCDs to bilateral lower extremities while in bed -Per vascular surgery- When the patient is able to tolerate anticoagulation would recommend restarting a low-dose heparin drip to prevent propagation of the DVT. -PE: Left and right radial pulse palpated; Bilateral DP and PT palpable, B hands cold with discolored thumb/index and middle fingers, B feet cold wioth discolored toes -transfusing per heme -follow CBC and coags -HIT pending rectal tube placed for diarrhea stools; not consistent with cdiff but continue to monitor NEURO: metabolic encephalopathy; sedation -Patient opens eyes and moves lower extremities spontaneously -Patient is sedated on propofol, fentanyl -RASS goal 0 to -1 -Avoid delirium -SAT trials when appropriate -prop d/c due to bradycardia CV: sp STEMI, h/o HTN; SVT/afib -Cardiology consulted, appreciate recommendations -Per cardiology patient will be medically treated -Echocardiogram shows LVEF 65 to 70%, mild LVH-> see report for details -Aspirin and plavix held due to bleeding -Lipitor -Blood pressure monitor per protocol -on cardizem now -MAP goal 65 -pressors as needed RESP: Acute hypoxic respiratory failure due to [id number] -Patient was intubated 12/08 -Wean mechanical ventilation as tolerated see RT notes for titration sat goal .88\ PEEP to 12 -VAP bundle -trend ABG and chest xray GI: GIB; protein charo malnutrition -nutrition consult -TF -GI consulted, patient recommendations (signed off 12/12) -IV PPI -Bowel regimen: [place] : Urinary retention; hyperK -Carpenter placed urinary retention -Strict intake and output -Avoid nephrotoxic medication -Trend creatinine -hyperK this AM medically treateed -afternoon BMP ordered ID: COVID-19 pneumonia, leukocytosis -Admits to known exposure -Presented at outside facility ([facility]) with Covid symptom complaints, CT angio chest bilateral ground glass opacities but no PE, consistent with Covid -COVID-19 PCR positive -Zinc/vitamin D/vitamin C -ID following -steroids per ID -S/p remdesivir x5 days, s/p Actemra -Per ID: Continue cefepime and vancomycin for 5 days (12/08 through 12/13) -Contact/droplet precautions -trend temp and WBC curve -follow culture data ENDO: DM2; hyperglycemia -SSI PRN -Scheduled Lantus (titrate as needed) -persistent hyperglycemia despite escalating insulin doses steroids to complete 12/16 hopefully this will improve blood glucose avoid hypoglycemia -HgbA1C 9.5 The high probability of a clinically significant, sudden or life threatening deterioration of the [pulmonary] system(s) required my full and direct attention, intervention and personal management. The aggregate critical care time was [40] minutes. This time is in addition to time spent performing reported procedures but includes the following: [x] Data Review and interpretation [x] Patient assessment and monitoring of vital signs [x] Documentation [x] Medication orders and management Disposition Plan: icu Total Time Spent with Patient (Minutes): 45 History Interval history: 65-year-old -[place] female with history of hypertension, diabetes, and GI bleed who presents [facility] ED with complaints of shortness of breath, loss of taste and smell, malaise, fatigue and weakness. Of note this is a [facility] patient and [facility] has agreed to the admission. Patient presented to her local [facility] clinic yesterday evening with complaints of Covid symptoms x6 days. CT angio chest done at [facility] revealed extensive irregular bilateral groundglass opacities, and patient was referred to ED for further evaluation and treatment. Admits to known exposure, states that her friend whom she was in close contact with for several days recently tested positive for Covid. Endorses mild generalized headache, chest tightening, diarrhea, body aches, loss of smell and taste, and shortness of breath. 12/03: COVID-19 test is positive patient is high flow in progress 40liters/100%, will obtain pulmonary consultation. Will adjust glargine for better insulin coverage. Continue remdesivir and Solu-Medrol. Will monitor progression. Encourage prone positioning. We will give a dose of Lasix today. Would like to go to full dose anticoagulatio n but patient's anemia is precluding And also patient with noted positive stool and remote history of GI bleed in 2016 if no worsening renal function with the Lasix given today will consider CTA in the morning if patient is not improving 12/04: Patient seen and examined, considering worsening hypoxia and stable renal function will order CTA to rule out pulmonary embolism. Will give one-time full dose anticoagulation and continue the prophylactic dose as being careful due to history of GI bleed. And noted anemia. I discussed with the software firmware engineer patient will transfer to [facility]. For now continue steroid therapy will give additional dose of Lasix today. Blood sugar is better controlled. Continue steroids and remdesivir. Patient also Getting Actmera also. Patient was able to prone today. 12/05: Patient s/p Actemra. Continue supportive care she is prone. She continues on steroids and remdesivir. We will give additional Lasix today and monitor renal function in a.m. She remains on high flow and nonrebreather mask/sign of the severity of her hypoxia 12/07: Patient remains on High flow, desaturating despite being on 100% highflow and NRBM, encourage to go back on BiPAP, she protested but now willing with improvement back to 89%. Patient is now on heparin drip, will obtain Chest xray. prongnosis -guarded 12/08: Patient still with hypoxic respiratory failure, worsening symptoms, EKG done concerning for inferior wall AR, STAT Troponin still pending. Discussed with the pulmonary doctor and also with the nibbler operator. Patient due to worsening symptoms is unable to go to the cathlab as she is not stable due to significant hypoxic. The patient again denies any chest pain, BUT WONDER IF this is secondary to the ongoing Heparin drip. Will start on full dose Plavix, Low dose ASA, BB if tolerating. Transfer to the ICU. Patient is s.p Remdesivir and Actmera continue Steroids and Heparin drip. Plan discussed with the patient in detail Noted with Hypoglycemia, will adjust insulin Need to monitor Nutritional status Very guarded prognosis 12/09 no acute events overnight 12/10: LARISA, heparin gtt turned off d/t bleeding 12/11: Patient is anemic today and required transfusion of PRBC x1 which was ordered. Vascular surgery was consulted for evaluation of right radial artery. Patient's heparin drip was discontinued due to mouth/nose. venous US ordered and PT/INR/CBC and fibrinogen were ordered 12/12: brachial vein DVT shown on US. Pt now has no dopplarable or papable pulse on right wrist (brachial heard on Doppler). Vascular surgery is aware. 12/13: PPP papable now, hand remain cold and feet are warmer. Started n argatroban and received cryo 12-14 heme following- transfused per recs 12-15 hyperkalemia today- medically treated; peristent hyperglycemia despite escalating insulin doses (steriods to be d/c 12-16; which may help) 12/16: Patient remains intubated, minimally responsive but again sedated today, completes steroids today. SEVERE ANEMIA AND THROMBOYTOPENIA Hospitalist Physical - Physical exam Narrative exam: General appearance: Present: no acute distress, other (Intubated) NOT RESPONSIVE ALTHOUGH SEDATED - EENT Eyes: Present: PERRL, EOM intact ENT: hearing intact - Neck Neck: Present: supple - Respiratory Respiratory effort: normal - Cardiovascular Rhythm: regular Heart Sounds: Present: S1 & S2 - Extremities Extremities: no ischemia - Abdominal General gastrointestinal: soft - Integumentary Integumentary: Present: clear - Psychiatric Psychiatric: other - Neurologic Neurologic: other - Allied Health Allied health notes reviewed: nursing, social work, case management - Constitutional Vitals: Temp Pulse Resp BP Pulse Ox 98.8 F 110 H 18 53/35 100 12/16/20 13:00 12/16/20 13:00 12/16/20 13:00 12/16/20 13:00 12/16/20 13:00 General appearance: Present: no acute distress, other (Intubated) HEART Score - HEART Score Troponin: Troponin T 0.487 ng/mL (0.00-0.029) H* D 12/09/20 13:08 Results - Labs CBC & Chem 7: 12/16/20 04:30 12/15/20 17:40 Labs: Laboratory Last Values WBC 18.2 K/mm3 (4.5-11.0) H 12/16/20 04:30 RBC 1.69 M/mm3 (3.65-5.03) L 12/16/20 04:30 Hgb 4.6 gm/dl (10.1-14.3) L* D 12/16/20 04:30 Hct 14.8 % (30.3-42.9) L* D 12/16/20 04:30 MCV 87 fl (79-97) 12/16/20 04:30 MCH 27 pg (28-32) L 12/16/20 04:30 MCHC 31 % (30-34) 12/16/20 04:30 RDW 18.6 % (13.2-15.2) H 12/16/20 04:30 Plt Count 9 K/mm3 (140-440) L* 12/16/20 04:30 Lymph % (Auto) 6.7 % (13.4-35.0) L 12/02/20 03:58 [place] % (Auto) 5.4 % (0.0-7.3) 12/02/20 03:58 Eos % (Auto) 0.0 % (0.0-4.3) 12/02/20 03:58 Baso % (Auto) 0.2 % (0.0-1.8) 12/02/20 03:58 Lymph # (Auto) 0.3 K/mm3 (1.2-5.4) L 12/02/20 03:58 [place] # (Auto) 0.3 K/mm3 (0.0-0.8) 12/02/20 03:58 Eos # (Auto) 0.0 K/mm3 (0.0-0.4) 12/02/20 03:58 Baso # (Auto) 0.0 K/mm3 (0.0-0.1) 12/02/20 03:58 Add Manual Diff Complete 12/16/20 04:30 Total Counted 100 12/16/20 04:30 Seg Neutrophils % Life Science Research Assistant 12/16/20 04:30 Seg Neuts % (Manual) 95.0 % (40.0-70.0) H 12/16/20 04:30 Band Neutrophils % 5.0 % 12/16/20 04:30 Lymphocytes % (Manual) 1.0 % (13.4-35.0) L 12/10/20 02:39 Monocytes % (Manual) 2.0 % (0.0-7.3) 12/10/20 02:39 Eosinophils % (Manual) 1.0 % (0.0-4.3) 12/08/20 20:15 Nucleated RBC % 14.0 % (0.0-0.9) H 12/16/20 04:30 Seg Neutrophils # 4.4 K/mm3 (1.8-7.7) 12/02/20 03:58 Seg Neutrophils # Man 17.8 K/mm3 (1.8-7.7) H 12/16/20 04:30 Band Neutrophils # 0.9 K/mm3 12/16/20 04:30 Lymphocytes # (Manual) 0.0 K/mm3 (1.2-5.4) L 12/16/20 04:30 Abs React Lymphs (Man) 0.0 K/mm3 12/16/20 04:30 Monocytes # (Manual) 0.0 K/mm3 (0.0-0.8) 12/16/20 04:30 Eosinophils # (Manual) 0.0 K/mm3 (0.0-0.4) 12/16/20 04:30 Basophils # (Manual) 0.0 K/mm3 (0.0-0.1) 12/16/20 04:30 Metamyelocytes # 0.0 K/mm3 12/16/20 04:30 Myelocytes # 0.0 K/mm3 12/16/20 04:30 Promyelocytes # 62.0 K/mm3 12/16/20 04:30 Blast Cells # 0.0 K/mm3 12/16/20 04:30 WBC Morphology Not Reportable 12/16/20 04:30 Hypersegmented Neuts Not Reportable 12/16/20 04:30 Hyposegmented Neuts Not Reportable 12/16/20 04:30 Hypogranular Neuts Not Reportable 12/16/20 04:30 Smudge Cells 3+ 12/16/20 04:30 Toxic Granulation Not Reportable 12/16/20 04:30 Toxic Vacuolation Not Reportable 12/16/20 04:30 Dohle Bodies Not Reportable 12/16/20 04:30 Pelger-Huet Anomaly Not Reportable 12/16/20 04:30 Minna Rods Not Reportable 12/16/20 04:30 Platelet Estimate Consistent w auto 12/16/20 04:30 Clumped Platelets Not Reportable 12/16/20 04:30 Plt Clumps, EDTA Not Reportable 12/16/20 04:30 Large Platelets Not Reportable 12/16/20 04:30 Giant Platelets Not Reportable 12/16/20 04:30 Platelet Satelliting Not Reportable 12/16/20 04:30 Plt Morphology Comment Not Reportable 12/16/20 04:30 RBC Morphology Not Reportable 12/16/20 04:30 Dimorphic RBCs Not Reportable 12/16/20 04:30 Polychromasia 1+ 12/16/20 04:30 Hypochromasia 3+ 12/16/20 04:30 Poikilocytosis Not Reportable 12/16/20 04:30 Anisocytosis 2+ 12/16/20 04:30 Microcytosis Not Reportable 12/16/20 04:30 Macrocytosis Not Reportable 12/16/20 04:30 Spherocytes 1+ 12/16/20 04:30 Pappenheimer Bodies Not Reportable 12/16/20 04:30 Sickle Cells Not Reportable 12/16/20 04:30 Target Cells Not Reportable 12/16/20 04:30 Tear Drop Cells Not Reportable 12/16/20 04:30 Ovalocytes 1+ 12/16/20 04:30 Helmet Cells Not Reportable 12/16/20 04:30 L[place] Bodies Not Reportable 12/16/20 04:30 Kaplan Rings Not Reportable 12/16/20 04:30 [place] Cells Not Reportable 12/16/20 04:30 Bite Cells Not Reportable 12/16/20 04:30 Crenated Cell Not Reportable 12/16/20 04:30 Elliptocytes Not Reportable 12/16/20 04:30 Acanthocytes (Spur) Not Reportable 12/16/20 04:30 Rouleaux Not Reportable 12/16/20 04:30 Hemoglobin C Crystals Not Reportable 12/16/20 04:30 Schistocytes Few 12/16/20 04:30 Malaria parasites Not Reportable 12/16/20 04:30 Po Bodies Not Reportable 12/16/20 04:30 Hem Pathologist Commnt No 12/16/20 04:30 PT 17.8 Sec. (12.2-14.9) H 12/15/20 05:10 INR 1.40 (0.87-1.13) H 12/15/20 05:10 APTT 29.2 Sec. (24.2-36.6) 12/11/20 15:45 Fibrinogen 76 mg/dl (211-480) L* 12/16/20 04:30 D-Dimer > 12968 ng/mlDDU (0-234) H 12/14/20 06:55 Heparin Anti-Xa Level < 0.10 U.I./ml (0.3-0.7) L 12/11/20 15:45 ABG pH 7.345 (7.320-7.450) 12/16/20 04:00 POC ABG pCO2 43.1 mmHg (32.0-48.0) 12/16/20 04:00 ABG pCO2 Not Reportable 12/14/20 06:25 POC ABG pO2 117.8 mmHg (83-108) H 12/16/20 04:00 ABG pO2 Not Reportable 12/14/20 06:25 POC ABG HCO3 23.0 12/16/20 04:00 ABG HCO3 Not Reportable 12/14/20 06:25 ABG O2 Saturation 98.1 (0-100) 12/16/20 04:00 ABG O2 Content 6.2 (0.0-44) 12/14/20 06:25 POC ABG Base Excess -2.4 12/16/20 04:00 ABG Base Excess Not Reportable 12/14/20 06:25 ABG Hemoglobin 4.7 (12.0-17.5) L 12/16/20 04:00 ABG Oxyhemoglobin 96.0 (94-98) 12/16/20 04:00 ABG Carboxyhemoglobin 2.3 % (0.0-5.0) 12/14/20 06:25 ABG Methemoglobin 0 (0.0-1.5) 12/16/20 04:00 ABG Sodium 146.9 mmol/L (136.0-145.0) H 12/16/20 04:00 ABG Potassium 5.2 mmol/L (3.40-4.50) H 12/16/20 04:00 ABG Chloride 118.0 mmol/L (98-107) H 12/16/20 04:00 ABG Glucose 582 mg/dL (65-95) H 12/16/20 04:00 Oxyhemoglobin 73.5 % (95.0-99.0) L 12/14/20 06:25 Carboxyhemoglobin 2.1 (0.5-1.5) H 12/16/20 04:00 FiO2 10 % 12/14/20 06:25 FiO2 % 100.0 12/16/20 04:00 Sodium 150 mmol/L (137-145) H 12/15/20 17:40 Potassium 5.9 mmol/L (3.6-5.0) H 12/15/20 17:40 Chloride 117.8 mmol/L (98-107) H 12/15/20 17:40 Carbon Dioxide 25 mmol/L (22-30) 12/15/20 17:40 Anion Gap 13 mmol/L 12/15/20 17:40 BUN 93 mg/dL (7-17) H 12/15/20 17:40 Creatinine 1.5 mg/dL (0.6-1.2) H 12/15/20 17:40 Estimated GFR 42 ml/min 12/15/20 17:40 BUN/Creatinine Ratio 62 % 12/15/20 17:40 Glucose 694 mg/dL (65-100) H* 12/15/20 17:40 POC Glucose 391 mg/dL (70-105) H 12/16/20 09:53 Hemoglobin A1c 9.5 % (4-6) H 12/02/20 06:15 Lactic Acid 6.80 mmol/L (0.7-2.0) H* 12/16/20 09:35 Calcium 8.3 mg/dL (8.4-10.2) L 12/15/20 17:40 Phosphorus 3.00 mg/dL (2.5-4.5) 12/13/20 06:55 Magnesium 3.10 mg/dL (1.7-2.3) H 12/13/20 06:55 Ferritin 398.2 ng/mL (10.0-200.0) H 12/14/20 06:55 Total Bilirubin 0.50 mg/dL (0.1-1.2) 12/15/20 05:10 AST 53 units/L (5-40) H 12/15/20 05:10 ALT 12 units/L (7-56) 12/15/20 05:10 Alkaline Phosphatase 298 units/L (35-129) H 12/15/20 05:10 Lactate Dehydrogenase 2448 units/L (91-180) H 12/14/20 06:55 Total Creatine Kinase 521 units/L (30-135) H 12/08/20 20:15 CK-MB (CK-2) 31.5 ng/mL (0.0-4.0) H 12/08/20 20:15 CK-MB (CK-2) Rel Index 6.0 (0-4) H 12/08/20 20:15 Troponin T 0.487 ng/mL (0.00-0.029) H* D 12/09/20 13:08 C-Reactive Protein 9.10 mg/dL (0.00-1.30) H 12/14/20 06:55 NT-Pro-B Natriuret Pep 2396 pg/mL (0-900) H 12/09/20 13:08 Total Protein 4.2 g/dL (6.3-8.2) L 12/15/20 05:10 Albumin 2.1 g/dL (3.9-5) L 12/15/20 05:10 Albumin/Globulin Ratio 1.0 % 12/15/20 05:10 Triglycerides 327 mg/dL (2-149) H 12/14/20 08:38 Cholesterol 88 mg/dL (50-199) 12/08/20 13:25 LDL Cholesterol Direct 30 mg/dL (50-130) L 12/08/20 13:25 HDL Cholesterol 35 mg/dL (40-59) L 12/08/20 13:25 Cholesterol/HDL Ratio 2.51 % 12/08/20 13:25 Procalcitonin 1.18 ng/mL (<0.15) 12/02/20 03:58 Arterial Blood Glucose 582 mg/dL (65-95) H 12/16/20 04:00 Arterial Blood Ionized Calcium 5.0 mg/dL (4.6-5.3) 12/16/20 04:00 Coronavirus (PCR) Positive (Negative) A 12/02/20 08:15 Blood Type O POSITIVE 12/14/20 14:20 Antibody Screen Negative 12/14/20 14:20 Crossmatch See Detail 12/14/20 14:20 Carpenter/IV: Voiding Method Indwelling Catheter Active Medications - Current Medications Current Medications: Generic Name Dose Route Start Last Admin Trade Name Freq PRN Reason Stop Dose Admin Acetaminophen 650 mg 12/02/20 05:09 12/12/20 18:19 Acetaminophen 325 Mg Tab PO 650 mg Q4H PRN Administration Pain MILD(1-3)/Fever >100.5/LARA Albuterol 2.5 mg 12/02/20 05:09 Albuterol 2.5 Mg/3 Ml Nebu IH Q3HRT PRN Shortness Of Breath Lipase/Protease/Amylase 1 each 12/09/20 10:32 Lipase 10,500/Protease 25,000/Amylase 43,750 (Units) Dr Cap FEEDTUBE PRN PRN For Clogged Feeding Tube Ascorbic Acid 500 mg 12/03/20 22:00 12/16/20 09:13 Ascorbic Acid 500 Mg Tab PO 500 mg BID AZAEL Administration Atorvastatin Calcium 40 mg 12/08/20 22:00 12/15/20 21:56 Atorvastatin 40 Mg Tab PO 40 mg QHS AZAEL Administration Cholecalciferol 5,000 unit 12/02/20 10:00 12/16/20 09:13 Cholecalciferol (Vit D3) 5,000 Unit Tab PO 5,000 unit DAILY AZAEL Administration Dextrose 50 ml 12/02/20 05:09 12/05/20 08:09 Dextrose 50% In Water (25gm) 50 Ml Syringe IV 50 ml Q30MIN PRN Administration Hypoglycemia Protocol Docusate Sodium 100 mg 12/14/20 10:00 12/16/20 09:13 Docusate Sodium 100 Mg/10 Ml Oral Liqd FEEDTUBE 100 mg BID AZAEL Administration Fentanyl 50 mcg 12/08/20 15:13 Fentanyl 100 Mcg/2 Ml Inj IV Q10MIN PRN ANALGESIA Hydrophilic Ointment 1 applic 12/08/20 15:56 Lip Therapy Vaseline TP Q2HR PRN Dry Lips Fentanyl Citrate 2,000 mcg in 100 mls @ 3.243 mls/hr 12/08/20 16:00 12/16/20 10:21 Fentanyl Drip Premix IV 4 mcg/kg/hr TITR AZAEL 12.973 mls/hr Administration Protocol 1 MCG/KG/HR NORepinephrine/NS 8 MG-250 ML 8 mg in 250 mls @ 3.75 mls/hr 12/08/20 16:00 12/16/20 12:58 Norepinephrine/Ns 8 Mg-250 Ml (Double Conc) IV 12 mcg/min TITRATE AZAEL 22.5 mls/hr Titration Protocol 2 MCG/MIN Sodium Chloride 500 mls @ 1 mls/hr 12/08/20 17:19 12/13/20 14:10 Nacl 0.9% 500 Ml IV 250 mls/hr DIRECT PRN Administration ARTERIAL LINE FLUSH Vasopressin 20 unit/ Sodium 101 mls @ 9.09 mls/hr 12/10/20 04:00 12/16/20 02:27 Chloride IV 0.03 units/min TITR AZAEL 9.09 mls/hr Administration Protocol 0.03 UNITS/MIN Diltiazem HCl 100 mg in 100 mls @ 5 mls/hr 12/14/20 11:00 12/15/20 05:44 Cardizem/D5w 100mg/100ml IV 10 mg/hr TITR AZAEL 10 mls/hr Administration Protocol 5 MG/HR Midazolam HCl 100 mg/ Sodium 100 mls @ 1 mls/hr 12/15/20 13:00 12/15/20 13:02 Chloride IV 2 mg/hr TITR AZAEL 2 mls/hr Administration Protocol 1 MG/HR Sodium Chloride 500 mls @ 0 mls/hr 12/16/20 09:00 Nacl 0.9% 500 Ml IV 12/16/20 18:00 ONCE AZAEL As Directed Sodium Chloride 500 mls @ 0 mls/hr 12/16/20 10:12 Nacl 0.9% 500 Ml IV 12/16/20 23:59 ONCE NR As Directed Insulin Glargine 30 units 12/16/20 22:00 Insulin Glargine 100 Units/Ml SUB-Q BID AZAEL Insulin Human Lispro 0 unit 12/14/20 18:00 12/16/20 13:00 Insulin Lispro 100 Unit/Ml SUB-Q 10 unit Q4H [facility] Administration Protocol Insulin Human Lispro 15 unit 12/16/20 12:00 12/16/20 12:57 Insulin Lispro 100 Unit/Ml SUB-Q 15 unit Q6HR AZAEL Administration Midazolam HCl 2 mg 12/15/20 12:38 Midazolam 2 Mg/2 Ml Inj IV Q10MIN PRN Sedation Multi-Ingred Cream/Lotion/Oil/Oint 1 applic 12/08/20 15:56 Mineral Oil/Petrolatum, White Ophth Oint 3.5 Gm OU Q4HR PRN Dry Eye(s) Ondansetron HCl 4 mg 12/02/20 05:09 Ondansetron 4 Mg/2 Ml Inj IV Q6H PRN Nausea And Vomiting Pantoprazole Sodium 40 mg 12/13/20 10:00 12/16/20 09:13 Pantoprazole 40 Mg Inj IV 40 mg BID AZAEL Administration Senna/Docusate Sodium 1 tab 12/08/20 22:00 12/16/20 09:13 Sennosides/Docusate Sodium 8.6/50 Mg Tab FEEDTUBE 1 tab BID AZAEL Administration Simple Syrup 30 ml 12/09/20 10:32 Simple Syrup 15 Ml FEEDTUBE PRN PRN Hypoglycemia Sodium Bicarbonate 325 mg 12/09/20 10:32 Sodium Bicarbonate 325 Mg Tab FEEDTUBE PRN PRN For Clogged Feeding Tube Sodium Chloride 10 ml 12/02/20 10:00 12/16/20 09:16 Sodium Chloride 0.9% 10 Ml Flush Syringe IV 10 ml BID AZAEL Administration Sodium Chloride 10 ml 12/02/20 05:09 Sodium Chloride 0.9% 10 Ml Flush Syringe IV PRN PRN LINE FLUSH Zinc Sulfate 220 mg 12/02/20 10:00 12/16/20 09:13 Zinc Sulfate 220 Mg Cap PO 220 mg QDAY AZAEL Administration Nutrition/Malnutrition Assess - Dietary Evaluation Nutrition/Malnutrition Findings: Nutrition Notes Start: 12/03/20 10:33 Freq: Status: Active Protocol: Document 12/14/20 10:32 (Rec: 12/14/20 10:42 [id number]) Nutrition Notes Initial or Follow up Reassessment Current Diagnosis Respiratory Failure Other Pertinent Diagnosis Covid +, Hyperglycemia Current Diet Vital AF at 45 ml/hr Labs/Tests Na 147 K 5.3 BUN 55 BG 368 Pertinent Medications Propofol at 11.676 ml/hr Height 4 ft 11.84 in Weight 64.86 kg [place] Body Weight (kg) 45.09 BMI 28.0 Weight Status Overweight Subjective/Other Information TF running at 45ml/hr (goal rate) and pt tolerating. Percent of energy/protein needs met: 98%/100% Burn Absent Trauma Absent Current % PO Negligible Minimum of two criteria No #1 Nutrition Diagnosis Inadequate oral intake Diagnosis Progress(for reassessment Continues documentation) Is patient on ventilator? Yes Is Patient Ambulatory and/or Out of Bed No REE-([facility]-confined to bed) 1328.772 Calculation Used for Recommendations [facility] Additional Notes Pro needs 1.2-2g/k-130g/ day Fluid needs 1ml/kcal Nutrition Intervention Change Diet Order: continue Nutrition Support: Vital AF 1.2 at 45 ml/hr. Flush 75 ml q4h or per MD. Kcal 1,296 Protein (gm) 81 Fluid (mL) 876 Goal #1 Meet at least 75% of protein and energy needs via TF Anticipated Discharge Needs: Unable to determine at this time Follow-Up By: 12/17/20 Additional Comments F/u: TF tolerance and renal funciton
--- NOTE | 2020-12-16 16:48 | Progress Note ---
Assessment and Plan Cultures: SARS CoV2 PCR: Positive 12/02/2020 blood culture: no growth A/P: 65-year-old female with diabetes, hypertension admitted with: #Shock, multifactorial, probably due to severe COVID, ?cardiogenic. No clear bacterial infection identified. #Bilateral pneumonia: Secondary to COVID-19. Severe disease. #Acute hypoxic respiratory failure: Secondary to above. Failed BiPAP, now on the vent. #Diabetes mellitus, uncontrolled: HbA1c 9.5 #ST elevation [place]: Cardiology on board. #Bleeding, anemia Recs: -continue steroids, at least 10 days -Status post 5 days of remdesivir, s/p Actemra -Completed antibiotics. -Prognosis remains extremely poor Stanford Interiano MD [facility] ([facility] O: [phone] F: [phone] Subjective Date of service: 12/16/20 Principal diagnosis: Ac hypoxemic resp failure; COVID-19 infection; Pneumonia; ARDS; DM II; HTN Interval history: Afebrile, white count elevated. Remains on the vent. Objective - Exam Narrative Exam: Physical exam deferred to reduce risk of transmission of COVID-19. Please refer to primary team's note. - Constitutional Vitals: Vital Signs Temp Pulse Resp BP Pulse Ox 98.2 F 100 H 16 72/24 100 12/16/20 16:00 12/16/20 16:14 12/16/20 16:14 12/16/20 16:00 12/16/20 16:14 Temperature -Last 24 Hours Temperature 98.2 F Temperature 98.2 F Temperature 98.8 F Temperature 99.5 F Temperature 99.5 F Temperature 99.1 F Temperature 98.6 F Temperature 98.1 F Temperature 97.0 F - Labs CBC & Chem 7: 12/16/20 04:30 12/15/20 17:40 Labs: Abnormal lab results 12/14/20 12/15/20 12/15/20 Range/Units 14:20 17:40 17:47 WBC (4.5-11.0) K/mm3 RBC (3.65-5.03) M/mm3 Hgb (10.1-14.3) gm/dl Hct (30.3-42.9) % MCH (28-32) pg RDW (13.2-15.2) % Plt Count (140-440) K/mm3 Seg Neuts % (Manual) (40.0-70.0) % Nucleated RBC % (0.0-0.9) % Seg Neutrophils # Man (1.8-7.7) K/mm3 Lymphocytes # (Manual) (1.2-5.4) K/mm3 Fibrinogen (211-480) mg/dl POC ABG pO2 (83-108) mmHg ABG Hemoglobin (12.0-17.5) ABG Sodium (136.0-145.0) mmol/L ABG Potassium (3.40-4.50) mmol/L ABG Chloride (98-107) mmol/L ABG Glucose (65-95) mg/dL Carboxyhemoglobin (0.5-1.5) Sodium 150 H (137-145) mmol/L Potassium 5.9 H (3.6-5.0) mmol/L Chloride 117.8 H (98-107) mmol/L BUN 93 H (7-17) mg/dL Creatinine 1.5 H (0.6-1.2) mg/dL Glucose 694 H* (65-100) mg/dL POC Glucose 585 H (70-105) mg/dL Lactic Acid (0.7-2.0) mmol/L Calcium 8.3 L (8.4-10.2) mg/dL Arterial Blood Glucose (65-95) mg/dL Crossmatch See Detail 12/15/20 12/16/20 12/16/20 Range/Units 21:32 02:11 04:00 WBC (4.5-11.0) K/mm3 RBC (3.65-5.03) M/mm3 Hgb (10.1-14.3) gm/dl Hct (30.3-42.9) % MCH (28-32) pg RDW (13.2-15.2) % Plt Count (140-440) K/mm3 Seg Neuts % (Manual) (40.0-70.0) % Nucleated RBC % (0.0-0.9) % Seg Neutrophils # Man (1.8-7.7) K/mm3 Lymphocytes # (Manual) (1.2-5.4) K/mm3 Fibrinogen (211-480) mg/dl POC ABG pO2 117.8 H (83-108) mmHg ABG Hemoglobin 4.7 L (12.0-17.5) ABG Sodium 146.9 H (136.0-145.0) mmol/L ABG Potassium 5.2 H (3.40-4.50) mmol/L ABG Chloride 118.0 H (98-107) mmol/L ABG Glucose 582 H (65-95) mg/dL Carboxyhemoglobin 2.1 H (0.5-1.5) Sodium (137-145) mmol/L Potassium (3.6-5.0) mmol/L Chloride (98-107) mmol/L BUN (7-17) mg/dL Creatinine (0.6-1.2) mg/dL Glucose (65-100) mg/dL POC Glucose 468 H 459 H (70-105) mg/dL Lactic Acid (0.7-2.0) mmol/L Calcium (8.4-10.2) mg/dL Arterial Blood Glucose 582 H (65-95) mg/dL Crossmatch 12/16/20 12/16/20 12/16/20 Range/Units 04:30 04:30 04:30 WBC 18.2 H (4.5-11.0) K/mm3 RBC 1.69 L (3.65-5.03) M/mm3 Hgb 4.6 L* D (10.1-14.3) gm/dl Hct 14.8 L* D (30.3-42.9) % MCH 27 L (28-32) pg RDW 18.6 H (13.2-15.2) % Plt Count 9 L* (140-440) K/mm3 Seg Neuts % (Manual) 95.0 H (40.0-70.0) % Nucleated RBC % 14.0 H (0.0-0.9) % Seg Neutrophils # Man 17.8 H (1.8-7.7) K/mm3 Lymphocytes # (Manual) 0.0 L (1.2-5.4) K/mm3 Fibrinogen 76 L* (211-480) mg/dl POC ABG pO2 (83-108) mmHg ABG Hemoglobin (12.0-17.5) ABG Sodium (136.0-145.0) mmol/L ABG Potassium (3.40-4.50) mmol/L ABG Chloride (98-107) mmol/L ABG Glucose (65-95) mg/dL Carboxyhemoglobin (0.5-1.5) Sodium (137-145) mmol/L Potassium (3.6-5.0) mmol/L Chloride (98-107) mmol/L BUN (7-17) mg/dL Creatinine (0.6-1.2) mg/dL Glucose (65-100) mg/dL POC Glucose (70-105) mg/dL Lactic Acid 2.60 H* (0.7-2.0) mmol/L Calcium (8.4-10.2) mg/dL Arterial Blood Glucose (65-95) mg/dL Crossmatch 12/16/20 12/16/20 12/16/20 Range/Units 06:12 09:35 09:53 WBC (4.5-11.0) K/mm3 RBC (3.65-5.03) M/mm3 Hgb (10.1-14.3) gm/dl Hct (30.3-42.9) % MCH (28-32) pg RDW (13.2-15.2) % Plt Count (140-440) K/mm3 Seg Neuts % (Manual) (40.0-70.0) % Nucleated RBC % (0.0-0.9) % Seg Neutrophils # Man (1.8-7.7) K/mm3 Lymphocytes # (Manual) (1.2-5.4) K/mm3 Fibrinogen (211-480) mg/dl POC ABG pO2 (83-108) mmHg ABG Hemoglobin (12.0-17.5) ABG Sodium (136.0-145.0) mmol/L ABG Potassium (3.40-4.50) mmol/L ABG Chloride (98-107) mmol/L ABG Glucose (65-95) mg/dL Carboxyhemoglobin (0.5-1.5) Sodium (137-145) mmol/L Potassium (3.6-5.0) mmol/L Chloride (98-107) mmol/L BUN (7-17) mg/dL Creatinine (0.6-1.2) mg/dL Glucose (65-100) mg/dL POC Glucose 440 H 391 H (70-105) mg/dL Lactic Acid 6.80 H* (0.7-2.0) mmol/L Calcium (8.4-10.2) mg/dL Arterial Blood Glucose (65-95) mg/dL Crossmatch 12/16/20 Range/Units 16:03 WBC (4.5-11.0) K/mm3 RBC (3.65-5.03) M/mm3 Hgb (10.1-14.3) gm/dl Hct (30.3-42.9) % MCH (28-32) pg RDW (13.2-15.2) % Plt Count (140-440) K/mm3 Seg Neuts % (Manual) (40.0-70.0) % Nucleated RBC % (0.0-0.9) % Seg Neutrophils # Man (1.8-7.7) K/mm3 Lymphocytes # (Manual) (1.2-5.4) K/mm3 Fibrinogen (211-480) mg/dl POC ABG pO2 (83-108) mmHg ABG Hemoglobin (12.0-17.5) ABG Sodium (136.0-145.0) mmol/L ABG Potassium (3.40-4.50) mmol/L ABG Chloride (98-107) mmol/L ABG Glucose (65-95) mg/dL Carboxyhemoglobin (0.5-1.5) Sodium (137-145) mmol/L Potassium (3.6-5.0) mmol/L Chloride (98-107) mmol/L BUN (7-17) mg/dL Creatinine (0.6-1.2) mg/dL Glucose (65-100) mg/dL POC Glucose 226 H (70-105) mg/dL Lactic Acid (0.7-2.0) mmol/L Calcium (8.4-10.2) mg/dL Arterial Blood Glucose (65-95) mg/dL Crossmatch
[2020-12-16] MEDS ORDERED: INSULIN GLARGINE 100 UNITS/ML SUB-Q SCH (22:00)
--- NOTE | 2020-12-16 23:53 | Event Note ---
Date: 12/16/20 Patient is a 65-year-old F Albanian female who has been admitted the last several days for Covid 19 pneumonia sepsis and acute hypoxic respiratory distress. Called to the patient's room because the patient was in cardiac arrest. Patient was in bradycardia PEA. 2 rounds of epinephrine bicarb given. Review of the patient is hospital course the patient was already had a very poor prognosis as the patient has severe anemia thrombocytopenia and COVID-19 with sepsis. Patient had a large amount of blood coming through the endotracheal tube and it is possible that the patient was in DIC. We have elected to discontinue resuscitative efforts after the second epinephrine and bicarb was given since the patient did not have return of spontaneous circulation. Time of pronouncement was 2328 Please see note from the hospitalist from earlier in the day regarding the patient's past several days clinical course Assessment and Plan Assessment and plan: This is a 65 year old female with HTN, DM, GI bleed in 2016 admitted with COVID 19 pna, sepsis, acute hypoxic respiratory failure and ACS Heme: Anemia, brachial vein DVT, GIB, thrombocytopenia; covid coagulopathy -Guaiac positive stool, remote history of GI bleed (2016)- Reconsult GI considering severe anemia and nurse reporting rectal bleed. - Severe anemia and Thrombocytopenia less than 10 of the latter- Transfuse Plt. -GI/vascular/hem/onc consulted, appreciate recommendations -Trend H&H -Hemoglobin on admission 8.9 -Transfuse as needed for hgb<7 -Patient was on heparin drip was discontinued due to GI bleed -SCDs to bilateral lower extremities while in bed -Per vascular surgery- When the patient is able to tolerate anticoagulation would recommend restarting a low-dose heparin drip to prevent propagation of the DVT. -PE: Left and right radial pulse palpated; Bilateral DP and PT palpable, B hands cold with discolored thumb/index and middle fingers, B feet cold wioth di scolored toes -transfusing per heme -follow CBC and coags -HIT pending rectal tube placed for diarrhea stools; not consistent with cdiff but continue to monitor NEURO: metabolic encephalopathy; sedation -Patient opens eyes and moves lower extremities spontaneously -Patient is sedated on propofol, fentanyl -RASS goal 0 to -1 -Avoid delirium -SAT trials when appropriate -prop d/c due to bradycardia CV: sp STEMI, h/o HTN; SVT/afib -Cardiology consulted, appreciate recommendations -Per cardiology patient will be medically treated -Echocardiogram shows LVEF 65 to 70%, mild LVH-> see report for details -Aspirin and plavix held due to bleeding -Lipitor -Blood pressure monitor per protocol -on cardizem now -MAP goal 65 -pressors as needed RESP: Acute hypoxic respiratory failure due to [id number] -Patient was intubated 12/08 -Wean mechanical ventilation as tolerated see RT notes for titration sat goal .88\ PEEP to 12 -VAP bundle -trend ABG and chest xray GI: GIB; protein charo malnutrition -nutrition consult -TF -GI consulted, patient recommendations (signed off 12/12) -IV PPI -Bowel regimen: [place] : Urinary retention; hyperK -Carpenter placed urinary retention -Strict intake and output -Avoid nephrotoxic medication -Trend creatinine -hyperK this AM medically treateed -afternoon BMP ordered ID: COVID-19 pneumonia, leukocytosis -Admits to known exposure -Presented at outside facility ([place]) with Covid symptom complaints, CT angio chest bilateral ground glass opacities but no PE, consistent with Covid -COVID-19 PCR positive -Zinc/vitamin D/vitamin C -ID following -steroids per ID -S/p remdesivir x5 days, s/p Actemra -Per ID: Continue cefepime and vancomycin for 5 days (12/08 through 12/13) -Contact/droplet precautions -trend temp and WBC curve -follow culture data ENDO: DM2; hyperglycemia -SSI PRN -Scheduled Lantus (titrate as needed) -persistent hyperglycemia despite escalating insulin doses steroids to complete 12/16 hopefully this will improve blood glucose avoid hypoglycemia -HgbA1C 9.5
[2020-12-17 01:15] VITALS: BP 146/46
--- NOTE | 2020-12-17 03:46 | Event Note ---
Date: 12/16/20 LIZZIE BERNSTEIN called on patient who has been on admission for COVID-19 pneumonia, sepsis, acute hypoxic respiratory failure. Resustative measures commenced according to ACLS protocol. He had multiple rounds of epinephrine, sodium Bicarbonate . All resuscitative measures proved futile. O/E No response to verbal or tactile stimuli. Pupils were fixed and dilated Chest : No breath sounds CVS: No pulses and no heart sounds Abd: soft Ext: cold and clammy [employer]: No reflexes. Patient pronounced at 23:28 PM December 16, 2020 Family promptly notified.
--- NOTE | 2020-12-17 08:08 | Death Summary ---
Summary - Providers Date of service: 12/17/20 Consults: 12/02/20 05:09 Consult to Physician [CONS] Routine Comment: Consulting Provider: CHARAN ROD Physician Instructions: Reason For Exam: suspected covid & covid pna 12/03/20 09:18 Consult to Physician [CONS] Routine Comment: Consulting Provider: JOHN BROWN Physician Instructions: Reason For Exam: HYPOXIC RESPIRATORY FAILURE 12/03/20 14:17 Physical Therapy Evaluation and Treat [CONS] Stat Comment: Reason For Exam: eval and treat 12/08/20 12:03 Consult to Physician [CONS] Routine Comment: paged overhead/Jagruti Consulting Provider: ANNAMARIE GLEASON Physician Instructions: Reason For Exam: nstemi 12/08/20 15:56 Consult to Dietitian/Nutrition [CONS] Routine Physician Instructions: Reason For Exam: Reason for Consult: Evaluate nutritional intake 12/10/20 08:00 Consult to Physician [CONS] Routine Comment: CALLED OFFICE/ [facility] Consulting Provider: SCOOTER PISANO Physician Instructions: Reason For Exam: UPPER GI BLEEED 12/11/20 15:35 Consult to Physician [CONS] Stat Comment: paged dr. Laureano/ jagruti Consulting Provider: MEHNAZ BABCOCK Physician Instructions: Reason For Exam: radial artery bleeding/?? compartment syndrome 12/13/20 07:33 Consult to Physician [CONS] Routine Comment: Consulting Provider: MIKAEL CHRISTIANSEN Physician Instructions: Reason For Exam: anticoagulation management 12/16/20 17:25 Consult to Physician [CONS] Routine Comment: Consulting Provider: EMMA INMAN Physician Instructions: Reason For Exam: ?Recurrent bleed Attending: PRAKASH LION MD - summary Date of admission: 12/02/20 05:09 Date of : 12/16/20 Reason for admission: shortness of breath Significant findings: 65-year-old -Greek female with history of hypertension, diabetes, and GI bleed who presents [facility] ED with complaints of shortness of breath, loss of taste and smell, malaise, fatigue and weakness. Of note this is a [facility] patient and [facility] has agreed to the admission. Patient presented to her local [facility] yesterday evening with complaints of Covid symptoms x6 days. CT angio chest done at [facility] revealed extensive irregular bilateral groundglass opacities, and patient was referred to ED for further evaluation and treatment. Admits to known exposure, states that her friend whom she was in close contact with for several days recently tested positive for Covid. Endorses mild generalized headache, chest tightening, diarrhea, body aches, loss of smell and taste, and shortness of breath. 12/03: COVID-19 test is positive patient is high flow in progress 40liters/100%, will obtain pulmonary consultation. Will adjust glargine for better insulin co verage. Continue remdesivir and Solu-Medrol. Will monitor progression. Encourage prone positioning. We will give a dose of Lasix today. Would like to go to full dose anticoagulation but patient's anemia is precluding And also patient with noted positive stool and remote history of GI bleed in 2016 if no worsening renal function with the Lasix given today will consider CTA in the morning if patient is not improving 12/04: Patient seen and examined, considering worsening hypoxia and stable renal function will order CTA to rule out pulmonary embolism. Will give one-time full dose anticoagulation and continue the prophylactic dose as being careful due to history of GI bleed. And noted anemia. I discussed with the rail director patient will transfer to [facility]. For now continue steroid therapy will give additional dose of Lasix today. Blood sugar is better controlled. Continue steroids and remdesivir. Patient also Getting Actmera also. Patient was able to prone today. 12/05: Patient s/p Actemra. Continue supportive care she is prone. She continues on steroids and remdesivir. We will give additional Lasix today and monitor renal function in a.m. She remains on high flow and nonrebreather mask/sign of the severity of her hypoxia 12/07: Patient remains on High flow, desaturating despite being on 100% highflow and NRBM, encourage to go back on BiPAP, she protested but now willing with improvement back to 89%. Patient is now on heparin drip, will obtain Chest xray. prongnosis -guarded 12/08: Patient still with hypoxic respiratory failure, worsening symptoms, EKG done concerning for inferior wall MN, STAT Troponin still pending. Discussed with the pulmonary doctor and also with the exercise scientist. Patient due to worsening symptoms is unable to go to the cathlab as she is not stable due to significant hypoxic. The patient again denies any chest pain, BUT WONDER IF this is secondary to the ongoing Heparin drip. Will start on full dose Plavix, Low dose ASA, BB if tolerating. Transfer to the ICU. Patient is s.p Remdesivir and Actmera continue Steroids and Heparin drip. Plan discussed with the patient in detail Noted with Hypoglycemia, will adjust insulin Need to monitor Nutritional status Very guarded prognosis 12/09 no acute events overnight 12/10: LARISA, heparin gtt turned off d/t bleeding 12/11: Patient is anemic today and required transfusion of PRBC x1 which was ordered. Vascular surgery was consulted for evaluation of right radial artery. Patient's heparin drip was discontinued due to mouth/nose. venous US ordered and PT/INR/CBC and fibrinogen were ordered 12/12: brachial vein DVT shown on US. Pt now has no dopplarable or papable pulse on right wrist (brachial heard on Doppler). Vascular surgery is aware. 12/13: PPP papable now, hand remain cold and feet are warmer. Started n argatroban and received cryo 12-14 heme following- transfused per recs 12-15 hyperkalemia today- medically treated; peristent hyperglycemia despite escalating insulin doses (steriods to be d/c 12-16; which may help) 12/16: Patient remains intubated, minimally responsive but again sedated today, completes steroids today. SEVERE ANEMIA AND THROMBOYTOPENIA Patient coded overnight and despite full ACLS protocol she . Please see note from Dr Moy COVID-19 pneumonia, sepsis, acute hypoxic respiratory failure. Acute blood loss Anemia, Brachial vein DVT, GIB, thrombocytopenia; covid coagulopathy metabolic encephalopathy STEMI, HTN; SVT/afib protein charo malnutrition Urinary retention; hyperK leukocytosis DM2 with ; hyperglycemia
[2020-12-18 18:33] LABS: Heparin-Induced Platelet Antib Negative (Negative); Unfractionated Heparin Negative (Negative)
== END 2020-12-16 23:28 | DRG 870 ==
LOC: ED 03:03 → 3A 05:09 → CC1 12-08 14:51
PROVIDERS: ADMIT Internal Medicine Geriatric Medicine; ATTEND Internal Medicine
PROC: XW033H5 Introduction of Tocilizumab into Peripheral Vein, Percutaneous Approach, New Technology Group 5 (ICD-10-PCS; 2020-12-02)
PROC: 5A0945A Assistance with Respiratory Ventilation, 24-96 Consecutive Hours, High Flow/Velocity Cannula (ICD-10-PCS; 2020-12-02)
PROC: XW033E5 Introduction of Remdesivir Anti-infective into Peripheral Vein, Percutaneous Approach, New Technology Group 5 (ICD-10-PCS; 2020-12-02)
PROC: 5A09357 Assistance with Respiratory Ventilation, Less than 24 Consecutive Hours, Continuous Positive Airway Pressure (ICD-10-PCS; 2020-12-04)
PROC: 5A09357 Assistance with Respiratory Ventilation, Less than 24 Consecutive Hours, Continuous Positive Airway Pressure (ICD-10-PCS; 2020-12-06)
PROC: 5A09357 Assistance with Respiratory Ventilation, Less than 24 Consecutive Hours, Continuous Positive Airway Pressure (ICD-10-PCS; 2020-12-07)
PROC: 5A1955Z Respiratory Ventilation, Greater than 96 Consecutive Hours (ICD-10-PCS; principal; 2020-12-08)
PROC: 0BH17EZ Insertion of Endotracheal Airway into Trachea, Via Natural or Artificial Opening (ICD-10-PCS; 2020-12-08)
PROC: 5A09357 Assistance with Respiratory Ventilation, Less than 24 Consecutive Hours, Continuous Positive Airway Pressure (ICD-10-PCS; 2020-12-08)
PROC: 03HY32Z Insertion of Monitoring Device into Upper Artery, Percutaneous Approach (ICD-10-PCS; 2020-12-08)
PROC: 02HV33Z Insertion of Infusion Device into Superior Vena Cava, Percutaneous Approach (ICD-10-PCS; 2020-12-08)
PROC: 30233K1 Transfusion of Nonautologous Frozen Plasma into Peripheral Vein, Percutaneous Approach (ICD-10-PCS; 2020-12-10)
PROC: 30233N1 Transfusion of Nonautologous Red Blood Cells into Peripheral Vein, Percutaneous Approach (ICD-10-PCS; 2020-12-10)
PROC: 4A033R1 Measurement of Arterial Saturation, Peripheral, Percutaneous Approach (ICD-10-PCS; 2020-12-11)
PROC: 30233M1 Transfusion of Nonautologous Plasma Cryoprecipitate into Peripheral Vein, Percutaneous Approach (ICD-10-PCS; 2020-12-13)
PROC: 5A12012 Performance of Cardiac Output, Single, Manual (ICD-10-PCS; 2020-12-16)
DX: A41.89 Other specified sepsis (principal); U07.1 COVID-19; J12.82 Pneumonia due to coronavirus disease 2019; J80 Acute respiratory distress syndrome; I21.3 ST elevation (STEMI) myocardial infarction of unspecified site; G93.41 Metabolic encephalopathy; E87.1 Hypo-osmolality and hyponatremia; R57.9 Shock, unspecified; D62 Acute posthemorrhagic anemia; I82.622 Acute embolism and thrombosis of deep veins of left upper extremity; D68.9 Coagulation defect, unspecified; I47.1 Supraventricular tachycardia; E46 Unspecified protein-calorie malnutrition; K92.2 Gastrointestinal hemorrhage, unspecified; R43.0 Anosmia; Z79.4 Long term (current) use of insulin; E11.65 Type 2 diabetes mellitus with hyperglycemia; R74.02 Elevation of levels of lactic acid dehydrogenase [LDH]; D69.6 Thrombocytopenia, unspecified; I10 Essential (primary) hypertension; Z91.013 Allergy to seafood; E87.5 Hyperkalemia; I48.91 Unspecified atrial fibrillation; Z68.28 Body mass index [BMI] 28.0-28.9, adult; R33.9 Retention of urine, unspecified; I48.0 Paroxysmal atrial fibrillation
CPT/HCPCS: 36415; 36600; 71045; 74018; 80048; 80053; 80061; 82140; 82550; 82553; 82728; 82803; 82805; 82962; 83036; 83615; 83735; 83880; 84100; 84145; 84478; 84484; 85007; 85014; 85018; 85025; 85027; 85049; 85379; 85384; 85520; 85610; 85730; 86022; 86140; 86850; 86900; 86901; 86920; 86965; 87040; 87070; 87205; 92950; 93005; 93306; 93970; 94002; 94003; 94660; 94760; G0378; A9270-GY; C9113; J0153; J0171; J0456; J0610; J0692; J0696; J1100; J1644; J1650; J1815; J1940; J2250; J2704; J2765; J2930; J3010; J3370; J7030; J7040; J7050; J8540; P9012; P9016; P9017; P9035; U0003